=== PATIENT | male | born 1945 | race Caucasian/White ===

== ENCOUNTER → 2017-10-05 | Outpatient (CLI) | payer MEDICARE ==
[2017-10-05 09:46] LABS: Basophils % (A) 1 %; CHCM 32.3; Eosinophils # (A) 0.2 k/uL (0-0.7); Eosinophils % (A) 2 %; HCT 43.3 % (39.0-53.0); HGB 13.9 gm/dL (13.0-17.5); Luc # (Auto) 0.19; Luc % (Auto) 3; Lymphocytes # (A) 2.2 k/uL (1.0-4.8); Lymphocytes % (A) 34 %; MCHC 32.1 g/dL (31.0-37.0); MCV 96.4 fL (80.0-100.0); Mean Platelet Volume 7.2; Monocytes # (A) 0.5 k/uL (0-1.0); Monocytes % (A) 7 %; Neutrophils # (A) 3.4 k/uL (1.3-7.7); Neutrophils % (A) 53 %; RBC 4.49 m/uL (4.30-5.90); RDW 14.6 % (11.5-15.5); WBC 6.4 k/uL (3.8-10.6); WBC (Perox) 6.37
[2017-10-05 10:06] LABS: ALT 35 U/L (21-72); AST 25 U/L (17-59); Alkaline Phosphatase 78 U/L (38-126); Anion Gap 6 mmol/L; Blood Urea Nitrogen 21 mg/dL (9-20); Calcium 9.4 mg/dL (8.4-10.2); Carbon Dioxide 31 mmol/L (22-30); Chloride 102 mmol/L (98-107); Cholesterol 195 mg/dL (<200); Glucose 85 mg/dL (74-99); HDL Cholesterol 45 mg/dL (40-60); Non-African American GFR(MDRD) >60 (>60 ml/min/1.73 sqM); Potassium 4.5 mmol/L (3.5-5.1); Sodium 139 mmol/L (137-145); Total Bilirubin 0.6 mg/dL (0.2-1.3); Total Protein 7.2 g/dL (6.3-8.2)
[2017-10-05 10:35] LABS: Prostate Specific Antigen 2.04 ng/mL (0.00-4.00)
== END ==
LOC: LABWHC1 08:48
PROVIDERS: ATTEND Family Medicine
DX: Z00.00 Encounter for general adult medical examination without abnormal findings (principal)
CPT/HCPCS: 36415; 80053; 80061; 84153; 84439; 84443; 85025

== ENCOUNTER → 2018-03-07 | Outpatient (CLI) | payer MEDICARE ==
[2018-03-07 09:11] LABS: Basophils % (A) 1 %; Eosinophils % (A) 1 %; HCT 39.3 % (39.0-53.0); HGB 13.2 gm/dL (13.0-17.5); Lymphocytes # (A) 1.6 k/uL (1.0-4.8); Lymphocytes % (A) 30 %; MCHC 33.6 g/dL (31.0-37.0); MCV 92.1 fL (80.0-100.0); Mean Platelet Volume 7.4; Monocytes # (A) 0.4 k/uL (0-1.0); Monocytes % (A) 7 %; Neutrophils # (A) 3.2 k/uL (1.3-7.7); Neutrophils % (A) 60 %; Platelet Count 181 k/uL (150-450); RBC 4.27 m/uL (4.30-5.90); RDW 12.9 % (11.5-15.5); WBC 5.4 k/uL (3.8-10.6)
[2018-03-07 09:23] LABS: Albumin 3.6 g/dL (3.5-5.0); Calcium 8.9 mg/dL (8.4-10.2); Potassium 4.3 mmol/L (3.5-5.1); Total Bilirubin 0.7 mg/dL (0.2-1.3); Total Protein 6.8 g/dL (6.3-8.2)
[2018-03-07 09:53] LABS: Prostate Specific Antigen 1.51 ng/mL (0.00-4.00)
== END | disposition home or self-care (01) ==
LOC: LABWHC1 08:11
PROVIDERS: ATTEND Family Medicine
DX: Z00.00 Encounter for general adult medical examination without abnormal findings (principal)
CPT/HCPCS: 36415; 80053; 80061; 84153; 84443; 85025

== ENCOUNTER → 2018-04-01 | Outpatient (CLI) | payer MEDICARE | END | disposition home or self-care (01) | LOC: LABWHC1 09:42 | PROVIDERS: ATTEND Family Medicine | DX: R42 Dizziness and giddiness (principal) | CPT/HCPCS: 93005 ==

== ENCOUNTER → 2018-07-26 | Outpatient (CLI) | payer MEDICARE ==
--- NOTE | 2018-07-26 15:01 | CT ---
EXAMINATION TYPE: CT urogram wo/w con DATE OF EXAM: 07/26/2018 COMPARISON: None INDICATION: Hematuria DLP: 904 mGycm, Automated exposure control for dose reduction was used. CONTRAST: 100 mL of Isovue 300. Study performed TECHNIQUE: Axial images were obtained from above the diaphragm to the pubic rami in the axial plane a t 5 mm thick sections. Reconstructed images are reviewed on the computer in the coronal plane. FINDINGS: Limited CT sections are obtained the lung bases. The lung bases are clear. CT ABDOMEN: Upper abdomen is somewhat limited. Portions visualized appear normal. Liver: Normal Spleen: Normal Pancreas: Normal Adrenal glands: The adrenal glands are normal. Gallbladder: Surgically absent Kidneys: No masses are evident. No hydronephrosis is present. No cysts are present. Three-D recons tructed images performed separately on the ventricular computer by the technologist are presented. Re nal calyces and infundibulum and renal pelves are normal. Ureters follow a normal caliber course and contour to the urinary bladder. There may be some calcification within the gonadal vein most likely p hleboliths. Ureteral stones are not identified. No dilatation is evident. Bilateral ureteral jets are evident. Aorta: There is marked infrarenal abdominal aortic aneurysm terminating at the bifurcation. This efe ures 7.2 cm in AP dimension. Inferior vena cava: Normal. CT PELVIS: Loops of bowel within the abdomen and pelvis are normal. Studies without oral contrast limiting b owel evaluation. Appendix: Not identified Urinary bladder: Normal. Genitourinary structures: Prostate is prominent. Osseous structures: No suspicious lytic or sclerotic lesions. IMPRESSIONS: 1. Abdominal aortic aneurysm measuring 7.2 cm in diameter and approximately 10.7 cm in length. 2. No suspicious renal or renal collecting system abnormality. A [place] level critical message alert has been initiated for Hong Gaines MD via the [facility] Critical Results System on 07/26/2018 2:56 PM. This message alert has been sent to Jazmin Jackson via the preferences provided by the clinician for the receipt of Radiology Critical Findings. Mikkristy TheraVid ID [id number].
== END | disposition home or self-care (01) ==
LOC: RADCTMAIN 12:48
PROVIDERS: ATTEND Urology
DX: I71.4 Abdominal aortic aneurysm, without rupture (principal)
CPT/HCPCS: 82565; 84520; 74178; 36415; 74400; Q9967

== ENCOUNTER → 2018-08-15 | Outpatient (CLI) | payer MEDICARE ==
[2018-08-15 17:35] LABS: Blood Urea Nitrogen 20 mg/dL (9-20)
--- NOTE | 2018-08-15 23:53 | CT ---
EXAMINATION TYPE: CT angio abdomen pelvis DATE OF EXAM: 08/15/2018 COMPARISON: 07/26/2018 HISTORY: 73-year-old male AAA, Evaluate aortic aneurysm. TECHNIQUE: Contiguous axial scanning of the abdomen and pelvis following administration of 100 ml Iso gabrielle 370 IV contrast. Coronal/sagittal MIP constructions performed. 3-D reconstructions generated on a dedicated independent workstation. CT DLP: 1380 mGycm Automated exposure control for dose reduction was used. FINDINGS: Heart normal size without pericardial effusion. Aortic root appears ectatic measuring up to 3.9 cm. L jenny bases clear without pleural effusion. Small hiatal hernia. Mildly aneurysmal low descending thoracic aorta 3.0 cm. Ectatic upper abdominal aorta 2.8 cm. Patent celiac axis and SMA with mild atherosclerotic calcifications at the origins. Lofton Daina renal arteries with mild atherosclerotic calcifications at the origin of the left r enal artery. Redemonstrated bilobed fusiform infrarenal abdominal aortic aneurysm. The first fusiform aneurysm beg ins just below the takeoff of the renal arteries spanning 3.9 cm and measuring up to 3.4 cm in diamet er, unchanged. The second larger aneurysm spans 11.7 cm down to the bifurcation and begins just below the first aneu rysm. It measures up to 7.5 cm wide which is unchanged. There is prominent circumferential thrombus a nd plaque within the aneurysm sac narrowing the patent lumen down to 2.8 cm. The normal tense rounded structure of the aorta is maintained. No abnormal hyperdensity seen within t he aortic wall and no abnormal extension of contrast seen. No dilated small bowel, free fluid, or free air. No mesenteric or retroperitoneal lymphadenopathy. Mi ld to moderate stool burden. No pericolonic inflammatory change. Moderate-sized fat-containing indire ct right inguinal hernia. No abnormal fluid collection in the pelvis or pelvic lymphadenopathy. Multi ple pelvic phleboliths. Prostate gland measures 4.3 cm wide. Small bilateral hydroceles. Bones: Mild degenerative changes at the hips and SI joints. Scattered mild degenerative disc disease and facet arthropathy. No osseous destructive process. IMPRESSION: 1. LARGE BILOBED FUSIFORM ANEURYSM OF THE INFRARENAL ABDOMINAL AORTA. THE SMALLER UPPER ANEURYSM TANNER URES 3.4 CM AND THE SECOND LARGER ANEURYSM EXTENDS DOWN TO THE BIFURCATION MEASURING UP TO 7.5 CM. TH AMERICO REMAIN UNCHANGED FROM 07/26/2018. NO SPECIFIC CT FINDINGS OF IMPENDING RUPTURE AT THIS TIME. 2. PROMINENT CIRCUMFERENTIAL PLAQUE AND THROMBUS NARROWING THE PATENT LUMEN DOWN TO 2.8 CM. 3. MILD ANEURYSM LOWER DESCENDING THORACIC AORTA AT 3.0 CM AND ECTATIC UPPER ABDOMINAL AORTA 2.8 CM. 4. MODERATE-SIZED FAT-CONTAINING INDIRECT RIGHT INGUINAL HERNIA AND SMALL HIATAL HERNIA.
== END | disposition home or self-care (01) ==
LOC: RADCTMAIN 16:47
PROVIDERS: ATTEND Surgery
DX: I71.4 Abdominal aortic aneurysm, without rupture (principal); K40.90 Unilateral inguinal hernia, without obstruction or gangrene, not specified as recurrent; K44.9 Diaphragmatic hernia without obstruction or gangrene
CPT/HCPCS: 82565; 84520; 36415; 74174; Q9967

== ENCOUNTER → 2018-10-25 | Outpatient (CLI) | payer MEDICARE ==
--- NOTE | 2018-10-25 14:47 | CT ---
EXAMINATION TYPE: CT angio abdomen pelvis DATE OF EXAM: 10/25/2018 COMPARISON: 917 8 HISTORY: Follow up stent surgery. CT DLP: 729.4 mGycm CONTRAST: CTA abdominal aorta with 3-D reconstruction is performed without Oral Contrast and with IV Contrast, patient injected with 80 mL of Isovue 370. Contrast CTA of the abdominal aorta was performed from the lung bases through the base of the pelvis . 3-D reconstruction imaging obtained at a separate workstation. CONTRAST CT ABDOMEN AND PELVIS ABDOMINAL AORTA: Interval aortic stent graft placement. Branch vessels including the SMA, FE and sunday iac as well as renals are patent bilaterally. No evidence for endoleak at this time. Cachil Dehe aneurysm measures 7.1 x 6.8 cm versus 7.2 x 6.8 cm previously. No evidence for rupture or complicating factor at this time. LIVER/GB- No significant abnormality is seen. Cholecystectomy clips. PANCREAS- No significant abnormality is seen. SPLEEN- No significant abnormality is seen. ADRENALS- No significant abnormality is seen. KIDNEYS/BLADDER- No significant abnormality is seen. BOWEL- No Significant abnormality GENITAL ORGANS: No gross abnormality seen. LYMPH NODES- No greater than 1cm abdominal or pelvic lymph nodes are appreciated. OSSEOUS STRUCTURES- No significant abnormality is seen. [id number] right inguinal hernia. IMPRESSION- 1. Interval aortic stent graft placement without complicating factor.
== END | disposition home or self-care (01) ==
LOC: RADCTMAIN 12:50
PROVIDERS: ATTEND Surgery
DX: T82.898A Other specified complication of vascular prosthetic devices, implants and grafts, initial encounter (principal); Z95.828 Presence of other vascular implants and grafts
CPT/HCPCS: 82565; 84520; 36415; 74174; Q9967

== ENCOUNTER → 2018-11-07 | Outpatient (CLI) | payer MEDICARE ==
[2018-11-07 10:08] LABS: Basophils % (A) 1 %; Eosinophils # (A) 0.2 k/uL (0-0.7); Eosinophils % (A) 4 %; HCT 41.3 % (39.0-53.0); HGB 13.4 gm/dL (13.0-17.5); Lymphocytes # (A) 1.6 k/uL (1.0-4.8); Lymphocytes % (A) 28 %; MCH 31.1 pg (25.0-35.0); MCHC 32.5 g/dL (31.0-37.0); MCV 95.7 fL (80.0-100.0); Mean Platelet Volume 6.7; Monocytes # (A) 0.4 k/uL (0-1.0); Monocytes % (A) 7 %; Neutrophils # (A) 3.4 k/uL (1.3-7.7); Neutrophils % (A) 59 %; Platelet Count 195 k/uL (150-450); RBC 4.32 m/uL (4.30-5.90); RDW 13.2 % (11.5-15.5); WBC 5.8 k/uL (3.8-10.6)
[2018-11-07 17:14] LABS: Anion Gap 4.3 mmol/L (4.00-12.00); Carbon Dioxide 30.7 mmol/L (21.6-31.8); LDL Cholesterol,Calculated 59.4 mg/dL (0.0-131.0); Potassium 4.4 mmol/L (3.5-5.5); VLDL Calculation 17.6 mg/dL (5.00-40.00)
== END | disposition home or self-care (01) ==
LOC: LABWHC1 09:10
PROVIDERS: ATTEND Family Medicine
DX: Z00.00 Encounter for general adult medical examination without abnormal findings (principal); I10 Essential (primary) hypertension
CPT/HCPCS: 36415; 80048; 80061; 84153; 84450; 84460; 85025

== ENCOUNTER 2019-01-12 10:48 | Emergency (ER) | payer MEDICARE ==
[2019-01-12 10:55] VITALS: TEMP 98.1
--- NOTE | 2019-01-12 11:30 | ED ---
General Adult HPI - General Chief complaint: Recheck/Abnormal Lab/Rx Stated complaint: hypertension Time Seen by Provider: 01/12/19 11:03 Source: patient, RN notes reviewed, old records reviewed Mode of arrival: ambulatory Limitations: no limitations - History of Present Illness Initial comments: 73-year-old male patient past medical history of hypertension, AAA status post stent placement presents to ED with asymptomatic hypertension. Patient reports that he takes his blood pressure on a daily basis. Patient pushes blood pressures generally in the 130s systolic. Patient reports that today his blood pressure has been around 170/80 pt currently denies any other complaints. Patient denies headache, changes in vision, chest pain, shortness of breath, abdominal pain, nausea vomiting diarrhea. Systemic: Pt denies fatigue, myalgia, fever/chills, rash. Pt denies weakness, night sweats, weight loss. Neuro: Pt denies headache, visual disturbances, syncope or pre-syncope. HEENT: Pt denies ocular discharge or irritation, otalgia, rhinorrhea, pharyngitis or notable lymphadenopathy. Cardiopulmonary: Pt denies chest pain, SOB, heart palpitations, dyspnea on exertion. Abdominal/GI: Pt denies abdominal pain, n/v/d. : Pt denies dysuria, burning w/ urination, frequency/urgency. Denies new onset urinary or bowel incontinence. MSK: Pt denies myalgia, loss of strength or function in extremities. Neuro: Pt denies new onset weakness, paresthesias. - Related Data Home Medications Medication Instructions Recorded Confirmed Aspirin EC [Ecotrin Low Dose] 81 mg PO HS 01/12/19 01/12/19 Atorvastatin [Lipitor] 80 mg PO HS@2200 01/12/19 01/12/19 Clopidogrel [Plavix] 75 mg PO HS 01/12/19 01/12/19 Metoprolol Tartrate 25 mg PO DAILY@1700 01/12/19 01/12/19 Allergies Allergy/AdvReac Type Severity Reaction Status Date / Time No Known Allergies Allergy Verified 01/12/19 10:51 Review of Systems ROS Statement: Those systems with pertinent positive or pertinent negative responses have been documented in the HPI. ROS Other: All systems not noted in ROS Statement are negative. Past Medical History Past Medical History: Hypertension Additional Past Medical History / Comment(s): AAA History of Any Multi-Drug Resistant Organisms: None Reported Additional Past Surgical History / Comment(s): AAA stent placement Past Psychological History: No Psychological Hx Reported Smoking Status: Former smoker Past Alcohol Use History: None Reported Past Drug Use History: None Reported General Exam - General Exam Comments Initial Comments: Constitutional: NAD, AOX3, Pt has pleasant affect. HEENT: NC/AT, trachea midline, neck supple, no lymphadenopathy. Posterior pharynx non erythematous, without exudates. External ears appear normal, without discharge. Mucous membranes moist. Eyes PERRLA, EOM intact. There is no scleral icterus. No pallor noted. Cardiopulmonary: RRR, no murmurs, rubs or gallops, no JVD noted. Lungs CTAB in anterior and posterior campuzano. No peripheral edema. Abdominal exam: Abdomen soft and non-distended. Abdomen non-tender to palpation in all 4 quadrants. Bowel sounds active in LLQ. No hepatosplenomegaly. No ecchymosis Neuro: CN II-XII intact. No nuchal rigidity. MSK: No posterior calf tenderness bilaterally, homans sign negative bilaterally. Posterior tibialis and radial pulse +2 bilaterally. Sensation intact in upper and lower extremities. Full active ROM in upper and lower extremities, 5/5 stregnth. Limitations: no limitations Course Vital Signs 01/12/19 01/12/19 01/12/19 10:52 11:39 12:40 Temperature 98.1 F Pulse Rate 61 54 L 52 L Respiratory 18 16 14 Rate Blood Pressure 178/88 160/83 155/86 O2 Sat by Pulse 96 96 96 Oximetry 01/12/19 01/12/19 01/12/19 13:41 14:36 14:55 Temperature Pulse Rate 66 Respiratory 14 Rate Blood Pressure 161/68 158/88 153/74 O2 Sat by Pulse 95 Oximetry Medical Decision Making - Medical Decision Making 73-year-old male patient past medical history of hypertension, AAA status post stent placement presents to ED with asymptomatic hypertension. Patient reports that he takes his blood pressure on a daily basis. Patient pushes blood pressures generally in the 130s systolic. Patient reports that today his blood pressure has been around 170/80 pt currently denies any other complaints. Patient denies headache, changes in vision, chest pain, shortness of breath, abdominal pain, nausea vomiting diarrhea. Pt VS displayed initial blood pressure of 178/88, after administration of antihypertensive, blood pressure decreased too 153/74 which it is currently at. Physical exam did not display acute pathology. Lymph investigations revealed nonpassive CBC. CMP revealed slight increase of creatinine of 1.92. UA revealed +2 protein, [address] patient secondary to kidney function. Ultrasound of aorta revealed stable aneurysm and graft stent. No signs of leakage or dissection. Ultrasound of kidneys displayed no hydronephrosis or nephrolithiasis. Vascular flow to both kidneys. Enlarged prostate gland. Chest x-ray displayed a 5 mm density to the right lung apex, more pronounced than on exam in 2009. May represent scarring. Outpatient follow-up recommended. Patient is a 1 L fluid. Patient continues to be asymptomatic in ED. Blood pressure well controlled. Patient to follow with primary care provider in 1-2 days for continued evaluation kidney function and hematuria. Case discussed in depth with Dr. Souza. - Lab Data Result diagrams: 01/12/19 11:22 01/12/19 11:22 Lab Results 01/12/19 01/12/19 01/12/19 Range/Units 11:22 11:22 11:22 WBC 7.1 (3.8-10.6) k/uL RBC 4.40 (4.30-5.90) m/uL Hgb 13.6 (13.0-17.5) gm/dL Hct 40.8 (39.0-53.0) % MCV 92.7 (80.0-100.0) fL MCH 30.9 (25.0-35.0) pg MCHC 33.4 (31.0-37.0) g/dL RDW 13.4 (11.5-15.5) % Plt Count 177 (150-450) k/uL Neutrophils % 66 % Lymphocytes % 22 % Monocytes % 9 % Eosinophils % 1 % Basophils % 0 % Neutrophils # 4.7 (1.3-7.7) k/uL Lymphocytes # 1.5 (1.0-4.8) k/uL Monocytes # 0.6 (0-1.0) k/uL Eosinophils # 0.1 (0-0.7) k/uL Basophils # 0.0 (0-0.2) k/uL Sodium 138 (137-145) mmol/L Potassium 4.1 (3.5-5.1) mmol/L Chloride 101 (98-107) mmol/L Carbon Dioxide 27 (22-30) mmol/L Anion Gap 10 mmol/L BUN 32 H (9-20) mg/dL Creatinine 1.92 H (0.66-1.25) mg/dL Est GFR (CKD-EPI)AfAm 39 (>60 ml/min/1.73 sqM) Est GFR (CKD-EPI)NonAf 34 (>60 ml/min/1.73 sqM) Glucose 125 H (74-99) mg/dL Calcium 9.1 (8.4-10.2) mg/dL Total Bilirubin 0.8 (0.2-1.3) mg/dL AST 45 (17-59) U/L ALT 49 (21-72) U/L Alkaline Phosphatase 76 (38-126) U/L Total Protein 7.8 (6.3-8.2) g/dL Albumin 4.3 (3.5-5.0) g/dL Urine Color Yellow Urine Appearance Clear (Clear) Urine pH 6.0 (5.0-8.0) Ur Specific [place] 1.017 (1.001-1.035) Urine Protein 2+ H (Negative) Urine Glucose (UA) Negative (Negative) Urine Ketones Negative (Negative) Urine Blood Moderate H (Negative) Urine Nitrite Negative (Negative) Urine Bilirubin Negative (Negative) Urine Urobilinogen <2.0 (<2.0) mg/dL Ur Leukocyte Esterase Negative (Negative) Urine RBC 19 H (0-5) /hpf Urine WBC 2 (0-5) /hpf Ur Squamous Epith Cells <1 (0-4) /hpf Urine Mucus Rare H (None) /hpf Disposition Clinical Impression: Hypertension Disposition: HOME SELF-CARE Condition: Stable Instructions (If sedation given, give patient instructions): Hypertension in the Older Adult (ED) Additional Instructions: Patient to adhere to previously discussed treatment plan and will take medication(s) as directed. Patient to follow up with PCP in 1-2 days. Patient to return to ED if symptoms do not improve. Is patient prescribed a controlled substance at d/c from ED?: No Referrals: Sebas Garza Jr, DO [Primary Care Provider] - 1-2 days
[2019-01-12 11:35] LABS: Basophils % (A) 0 %; Eosinophils # (A) 0.1 k/uL (0-0.7); Eosinophils % (A) 1 %; HCT 40.8 % (39.0-53.0); HGB 13.6 gm/dL (13.0-17.5); Lymphocytes # (A) 1.5 k/uL (1.0-4.8); Lymphocytes % (A) 22 %; MCH 30.9 pg (25.0-35.0); MCHC 33.4 g/dL (31.0-37.0); MCV 92.7 fL (80.0-100.0); Mean Platelet Volume 6.8; Monocytes # (A) 0.6 k/uL (0-1.0); Monocytes % (A) 9 %; Neutrophils # (A) 4.7 k/uL (1.3-7.7); Neutrophils % (A) 66 %; Platelet Count 177 k/uL (150-450); RDW 13.4 % (11.5-15.5); WBC 7.1 k/uL (3.8-10.6)
[2019-01-12 11:46] LABS: Appearance,Urine Clear (Clear); Bilirubin,Urine Negative (Negative); Blood,Urine Moderate (Negative); Color,Urine Yellow; Glucose,Urine (UA) Negative (Negative); Ketones,Urine Negative (Negative); Leukocyte Esterase,Urine Negative (Negative); Mucus,Urine Rare /hpf; Nitrite,Urine Negative (Negative); Protein,Urine 2+ (Negative); RBC,Urine 19 /hpf (0-5); Specific Gravity,Urine 1.017 (1.001-1.035); Squamous Epithelial Cell,Urine <1 /hpf (0-4); Urobilinogen,Urine <2.0 mg/dL (<2.0)
[2019-01-12 11:49] LABS: Albumin 4.3 g/dL (3.5-5.0); Calcium 9.1 mg/dL (8.4-10.2); Potassium 4.1 mmol/L (3.5-5.1); Total Bilirubin 0.8 mg/dL (0.2-1.3); Total Protein 7.8 g/dL (6.3-8.2)
--- NOTE | 2019-01-12 12:01 | XR ---
EXAMINATION TYPE: XR chest 2V DATE OF EXAM: 01/12/2019 COMPARISON: 12/21/2009. HISTORY: Elevated blood pressure. History of cardiac stents. TECHNIQUE: Frontal and lateral views of the chest are obtained. FINDINGS: There is no focal air space opacity, pleural effusion, or pneumothorax seen. Focal nodular density of the right lung apex is seen, minimally increased in comparison to the prior 2009. The ca rdiac silhouette size is within normal limits. The osseous structures are intact. Endovascular sten t is seen of the descending thoracic aorta with surgical clips. Cholecystectomy change is noted. Mini mal degenerative changes of the spine and right acromio clavicular joint are seen. IMPRESSION: 1. No acute cardiopulmonary process. 2. Patchy approximately 5 mm density within the right lung apex is more pronounced on the exam of 201 0 and may represent scarring, however given interval growth nonemergent chest CT is recommended for f ull characterization.
[2019-01-12] MEDS ORDERED: LABETALOL SYRINGE 5 MG/ML IVP STA (12:17)
[2019-01-12] MEDS ORDERED: hydrALAZINE HCL 20 MG/ML 1 ML VIAL IVP STA ×2 (12:21→14:03)
[2019-01-12 12:41] VITALS: RESP 14
--- NOTE | 2019-01-12 14:10 | US ---
EXAMINATION TYPE: US duplex aorta DATE OF EXAM: 01/12/2019 COMPARISON: CT angio abdomen pelvis dated 10/25/2018 CLINICAL HISTORY: Pain. Hx of AAA with aortic stent in august, HTN today EXAM MEASUREMENTS: Abdominal Aorta: Proximal: Not visualized due to overlying bowel gas Mid: 1.8 x 2.4 cm, limited visualization due to overlying bowel gas and AAA Distal: Not well visualized due to AAA Bifurcation: right stenting- 0.6 x 1.1 cm left stenting- 1.1 x 0.9 cm AAA visualized between mid and distal portion of Aorta= 11.3 x 7.0 x 6.7 cm. Two stents seen within A AA with vascular flow possibly extending into the iliacs. Distal flow on image 47 again made be prese nt within the iliac vasculature, suboptimally evaluated. IMPRESSION: Mid to distal abdominal aortic aneurysm measures up to 6.7 cm in anterior posterior dimen norman and 7.0 cm in transverse dimension, similar in size to the prior CT abdomen dated 10/25/2018 whe re this measured 6.8 x 7.1 cm. Aortoiliac stent graft is seen centrally with vascular flow through th e stent graft.
--- NOTE | 2019-01-12 14:12 | US ---
EXAMINATION TYPE: US renals and bladder DATE OF EXAM: 01/12/2019 COMPARISON: None CLINICAL HISTORY: kidneys per order. HTN today, patient states having aortic stent placed in that allyn t to kidneys EXAM MEASUREMENTS: Right Kidney: 8.7 x 5.1 x 4.8 cm Left Kidney: 8.2 x 3.5 x 4.6 cm Right Kidney: No hydronephrosis or masses seen Left Kidney: No hydronephrosis or masses seen Bladder: mildly distended Right jet seen There is no evidence for hydronephrosis at this point in time. No nephrolithiasis is seen. No luis s are identified. The urinary bladder is anechoic. Bilateral ureteral jets are seen. Vascular flow seen to both kidneys. Enlarged prostate gland impressing upon the urinary bladder is seen. IMPRESSION: No hydronephrosis or nephrolithiasis. Vascular flow seen to both kidneys. Enlarged prostate gland imp resses upon the urinary bladder.
[2019-01-12] MEDS ORDERED: SODIUM CHLORIDE 0.9% 1,000 ML IV STA (14:34)
[2019-01-12 14:56] VITALS: PULSE 66
[2019-01-12 16:15] VITALS: BP 146/88
--- NOTE | 2019-01-12 20:48 | ED ---
Medical Decision Making - Lab Data Result diagrams: 01/12/19 11:22 01/12/19 11:22 Lab Results 01/12/19 01/12/19 01/12/19 Range/Units 11:22 11:22 11:22 WBC 7.1 (3.8-10.6) k/uL RBC 4.40 (4.30-5.90) m/uL Hgb 13.6 (13.0-17.5) gm/dL Hct 40.8 (39.0-53.0) % MCV 92.7 (80.0-100.0) fL MCH 30.9 (25.0-35.0) pg MCHC 33.4 (31.0-37.0) g/dL RDW 13.4 (11.5-15.5) % Plt Count 177 (150-450) k/uL Neutrophils % 66 % Lymphocytes % 22 % Monocytes % 9 % Eosinophils % 1 % Basophils % 0 % Neutrophils # 4.7 (1.3-7.7) k/uL Lymphocytes # 1.5 (1.0-4.8) k/uL Monocytes # 0.6 (0-1.0) k/uL Eosinophils # 0.1 (0-0.7) k/uL Basophils # 0.0 (0-0.2) k/uL Sodium 138 (137-145) mmol/L Potassium 4.1 (3.5-5.1) mmol/L Chloride 101 (98-107) mmol/L Carbon Dioxide 27 (22-30) mmol/L Anion Gap 10 mmol/L BUN 32 H (9-20) mg/dL Creatinine 1.92 H (0.66-1.25) mg/dL Est GFR (CKD-EPI)AfAm 39 (>60 ml/min/1.73 sqM) Est GFR (CKD-EPI)NonAf 34 (>60 ml/min/1.73 sqM) Glucose 125 H (74-99) mg/dL Calcium 9.1 (8.4-10.2) mg/dL Total Bilirubin 0.8 (0.2-1.3) mg/dL AST 45 (17-59) U/L ALT 49 (21-72) U/L Alkaline Phosphatase 76 (38-126) U/L Total Protein 7.8 (6.3-8.2) g/dL Albumin 4.3 (3.5-5.0) g/dL Urine Color Yellow Urine Appearance Clear (Clear) Urine pH 6.0 (5.0-8.0) Ur Specific [place] 1.017 (1.001-1.035) Urine Protein 2+ H (Negative) Urine Glucose (UA) Negative (Negative) Urine Ketones Negative (Negative) Urine Blood Moderate H (Negative) Urine Nitrite Negative (Negative) Urine Bilirubin Negative (Negative) Urine Urobilinogen <2.0 (<2.0) mg/dL Ur Leukocyte Esterase Negative (Negative) Urine RBC 19 H (0-5) /hpf Urine WBC 2 (0-5) /hpf Ur Squamous Epith Cells <1 (0-4) /hpf Urine Mucus Rare H (None) /hpf - EKG Data -: EKG Interpreted by Me (and dr flanagan ) EKG Comments: Ventricular rate 55, NE interval 188, QRS 128, QT/QTc 452/432. Sinus bradycardia, right bundle-branch block. No concern for acute ischemia. No significant change to prior EKG. Disposition Clinical Impression: Hypertension Disposition: HOME SELF-CARE Condition: Stable Instructions (If sedation given, give patient instructions): Hypertension in the Older Adult (ED) Additional Instructions: Patient to adhere to previously discussed treatment plan and will take medication(s) as directed. Patient to follow up with PCP in 1-2 days. Patient to return to ED if symptoms do not improve. Is patient prescribed a controlled substance at d/c from ED?: No Referrals: Sebas Garza Jr, [Primary Care Provider] - 1-2 days
== END 2019-01-12 16:14 | disposition home or self-care (01) ==
LOC: EC 10:48
DX: I10 Essential (primary) hypertension (principal); I71.4 Abdominal aortic aneurysm, without rupture; N40.0 Benign prostatic hyperplasia without lower urinary tract symptoms; R91.8 Other nonspecific abnormal finding of lung field; Z95.828 Presence of other vascular implants and grafts; Z87.891 Personal history of nicotine dependence; Z79.82 Long term (current) use of aspirin; Z79.02 Long term (current) use of antithrombotics/antiplatelets; Z79.899 Other long term (current) drug therapy; Z53.8 Procedure and treatment not carried out for other reasons
CPT/HCPCS: 36415; 93005; 80053; 85025; 81001; 71046; 76770; 93979; 99284; 96374; 96376; 96361; J0360

== ENCOUNTER 2019-01-13 01:25 | Emergency (ER) | payer MEDICARE ==
[2019-01-13] MEDS ORDERED: hydrALAZINE HCL 20 MG/ML 1 ML VIAL IM STA (02:46)
--- NOTE | 2019-01-13 03:09 | ED ---
Recheck HPI - General Chief Complaint: Recheck/Abnormal Lab/Rx Stated Complaint: HTN Time Seen by Provider: 01/13/19 02:28 Source: patient, RN notes reviewed, old records reviewed Mode of arrival: ambulatory Limitations: no limitations - History of Present Illness Initial Comments: Patient is a 73-year-old male presents emergency department today with complaints of elevated blood pressure readings. Patient reports that he was seen earlier today and had a full workup including a shunt abdomen renals EKGs. This was already performed and unremarkable. He states he has no symptoms at this time with blood pressure. Patient states that he checked his blood pressure at home when he was discharged to continue to be elevated 170s over 80s and 90s. Patient states that he does take metoprolol this time. He did have a dose of 5:00. He reports that he woke up and decided to recheck his blood pressure. It was elevated 170/90 again. He came to the emergency department for reevaluation. - Related Data Home Medications Medication Instructions Recorded Confirmed Aspirin EC [Ecotrin Low Dose] 81 mg PO HS 01/12/19 01/12/19 Atorvastatin [Lipitor] 80 mg PO HS@2200 01/12/19 01/12/19 Clopidogrel [Plavix] 75 mg PO HS 01/12/19 01/12/19 Metoprolol Tartrate 25 mg PO DAILY@1700 01/12/19 01/12/19 Allergies Allergy/AdvReac Type Severity Reaction Status Date / Time No Known Allergies Allergy Verified 01/13/19 01:46 Review of Systems ROS Statement: Those systems with pertinent positive or pertinent negative responses have been documented in the HPI. ROS Other: All systems not noted in ROS Statement are negative. Past Medical History Past Medical History: Hypertension Additional Past Medical History / Comment(s): AAA History of Any Multi-Drug Resistant Organisms: None Reported Additional Past Surgical History / Comment(s): AAA stent placement Past Psychological History: No Psychological Hx Reported Smoking Status: Former smoker Past Alcohol Use History: None Reported Past Drug Use History: None Reported General Exam - General Exam Comments Initial Comments: 73-year-old male. Alert and oriented. No distress. Limitations: no limitations General appearance: alert, in no apparent distress Head exam: Present: atraumatic, normocephalic, normal inspection Eye exam: Present: normal appearance, PERRL, EOMI. Absent: scleral icterus, conjunctival injection, periorbital swelling ENT exam: Present: normal exam, mucous membranes moist Neck exam: Present: normal inspection. Absent: tenderness, meningismus, lymphadenopathy Respiratory exam: Present: normal lung sounds bilaterally. Absent: respiratory distress, wheezes, rales, rhonchi, stridor Cardiovascular Exam: Present: regular rate, normal rhythm, normal heart sounds. Absent: systolic murmur, diastolic murmur, rubs, gallop, clicks GI/Abdominal exam: Present: soft, normal bowel sounds. Absent: distended, tenderness, guarding, rebound, rigid Extremities exam: Present: normal inspection, full ROM, normal capillary refill. Absent: tenderness, pedal edema, joint swelling, calf tenderness Back exam: Present: normal inspection Neurological exam: Present: alert, oriented X3, CN II-XII intact Psychiatric exam: Present: normal affect, normal mood Course Vital Signs 01/13/19 01/13/19 01/13/19 01:44 03:06 03:20 Temperature 98.6 F Pulse Rate 59 L 54 L 60 Respiratory 16 16 20 Rate Blood Pressure 157/75 169/81 152/74 O2 Sat by Pulse 97 97 97 Oximetry Medical Decision Making - Medical Decision Making 73-year-old male presents department today with complaints of elevated blood pressure. He is asymptomatic at this time. Blood pressure was 170/80 80 on examination. He denies any complaints. Patient was given 1 dose of 10mg IM hydralazine. He had an extensive evaluation earlier today for evaluation for his blood pressure. I discussed the Patient he needs to follow-up with his primary care provider may need to add another blood pressure medication on at this time. Blood pressure came down to 152/74. Patient has been advised also does not check his blood pressure except for once to twice a day and to call his PCP. Discussed that these any symptoms including chest pain shortness of breath abdominal pains or other discomforts he should return for reevaluation. Disposition Clinical Impression: Hypertension Disposition: HOME SELF-CARE Condition: Good Instructions (If sedation given, give patient instructions): Chronic Hypertension (ED) Additional Instructions: Call primary care physician in regards to adding additional blood pressure medication. Advised to decrease the amount of change or taking her blood pressure at home. If you have any symptoms including chest pain shortness of breath or significant abdominal pain or severe headache please return for reevaluation. Is patient prescribed a controlled substance at d/c from ED?: No Referrals: Sebas Garza Jr, [Primary Care Provider] - 1-2 days Time of Disposition: 03:22
[2019-01-13 03:37] VITALS: BP 149/75; PULSE 61; RESP 18; TEMP 98.4
== END 2019-01-13 03:37 | disposition home or self-care (01) ==
LOC: EC 01:25
DX: I10 Essential (primary) hypertension (principal); Z79.82 Long term (current) use of aspirin; Z79.02 Long term (current) use of antithrombotics/antiplatelets; Z79.899 Other long term (current) drug therapy; Z87.891 Personal history of nicotine dependence; Z95.5 Presence of coronary angioplasty implant and graft
CPT/HCPCS: 99283; 96372; J0360

== ENCOUNTER 2019-11-18 10:44 | Emergency (ER) | payer MEDICARE ==
[2019-11-18 10:54] VITALS: TEMP 97.8
[2019-11-18] MEDS ORDERED: hydrALAZINE HCL 20 MG/ML 1 ML VIAL IM STA (11:16)
--- NOTE | 2019-11-18 11:20 | ED ---
General Adult HPI - General Chief complaint: Recheck/Abnormal Lab/Rx Stated complaint: High Blood Pressure Time Seen by Provider: 11/18/19 10:46 Source: patient, RN notes reviewed Mode of arrival: ambulatory Limitations: no limitations - History of Present Illness Initial comments: Patient is a pleasant 74-year-old male presenting to the emergency department with concerns regarding his blood pressure. Patient did take blood pressure at home today and was running somewhat high. Systolic blood pressure readings were 156 and 170. Patient otherwise states he feels fine. No chest pain or dyspnea. No weakness or confusion. Patient does have history of hypertension and is on medication for this. - Related Data Home Medications Medication Instructions Recorded Confirmed Aspirin EC [Ecotrin Low Dose] 81 mg PO HS 01/12/19 01/12/19 Atorvastatin [Lipitor] 80 mg PO HS@2200 01/12/19 01/12/19 Clopidogrel [Plavix] 75 mg PO HS 01/12/19 01/12/19 Metoprolol Tartrate 25 mg PO DAILY@1700 01/12/19 01/12/19 Allergies Allergy/AdvReac Type Severity Reaction Status Date / Time No Known Allergies Allergy Verified 11/18/19 10:54 Review of Systems ROS Statement: Those systems with pertinent positive or pertinent negative responses have been documented in the HPI. ROS Other: All systems not noted in ROS Statement are negative. Constitutional: Denies: fever Eyes: Denies: eye pain ENT: Denies: ear pain Respiratory: Denies: cough, dyspnea Cardiovascular: Denies: chest pain, palpitations Endocrine: Denies: fatigue Gastrointestinal: Denies: abdominal pain Genitourinary: Denies: dysuria Musculoskeletal: Denies: back pain Skin: Denies: rash Neurological: Denies: weakness Past Medical History Past Medical History: Hypertension Additional Past Medical History / Comment(s): AAA History of Any Multi-Drug Resistant Organisms: None Reported Additional Past Surgical History / Comment(s): AAA stent placement Past Psychological History: No Psychological Hx Reported Smoking Status: Former smoker Past Alcohol Use History: None Reported Past Drug Use History: None Reported General Exam Limitations: no limitations General appearance: alert, in no apparent distress Head exam: Present: normocephalic Eye exam: Present: normal appearance, PERRL ENT exam: Present: normal oropharynx Neck exam: Present: normal inspection Respiratory exam: Present: normal lung sounds bilaterally. Absent: chest wall tenderness Cardiovascular Exam: Present: regular rate, normal rhythm Expanded Peripheral pulses: 2+: Radial (R), Radial (L), Posterior Tibialis (R), Posterior Tibialis (L) GI/Abdominal exam: Present: soft. Absent: tenderness Extremities exam: Present: normal inspection Neurological exam: Present: alert, CN II-XII intact. Absent: motor sensory deficit Expanded Neurological exam: Present: protecting the airway Speech: Present: fluid speech Cranial nerves: EOM's Intact: Normal Motor strength exam: RUE: 5, LUE: 5, RLE: 5, LLE: 5 Eye Response: (4) open spontaneously Motor Response: (6) obeys commands Verbal Response: (5) oriented Psychiatric exam: Present: normal affect, normal mood Skin exam: Present: normal color Course Vital Signs 11/18/19 11/18/19 11/18/19 10:51 11:11 11:20 Temperature 97.8 F Pulse Rate 51 L 49 L 46 L Respiratory 20 Rate Blood Pressure 171/82 173/80 O2 Sat by Pulse 100 Oximetry 11/18/19 11/18/19 11/18/19 11:30 11:40 11:45 Temperature Pulse Rate 46 L 47 L 48 L Respiratory Rate Blood Pressure 173/80 173/80 173/80 O2 Sat by Pulse Oximetry 11/18/19 11/18/19 11/18/19 11:47 11:50 11:55 Temperature Pulse Rate 49 L 49 L 50 L Respiratory 14 Rate Blood Pressure 143/75 143/75 141/66 O2 Sat by Pulse 98 97 97 Oximetry 11/18/19 11/18/19 11/18/19 12:00 12:05 12:15 Temperature Pulse Rate 49 L 51 L 52 L Respiratory Rate Blood Pressure 141/66 145/67 143/67 O2 Sat by Pulse 97 97 96 Oximetry EKG Findings - EKG Comments: EKG Findings:: Sinus bradycardia at 50. For screening AV block IA of 234. QRS 124. QT 462. QTC 421. Left axis. Right bundle branch block. No acute ST change. Medical Decision Making - Medical Decision Making Patient reevaluated and resting comfortably in bed, symptom-free. Patient updated on results and need for follow-up. Patient is comfortable with discharge home. Disposition Clinical Impression: Hypertension Disposition: HOME SELF-CARE Condition: Stable Instructions (If sedation given, give patient instructions): Hypertension (ED) Additional Instructions: Please follow-up with primary care physician in the beginning of the week as planned. Return for increased blood pressure, chest pain or weakness, worsening symptoms or other concerns. Is patient prescribed a controlled substance at d/c from ED?: No Referrals: Sebas Garza Jr, DO [Primary Care Provider] - 1-2 days Time of Disposition: 12:27
[2019-11-18 11:48] VITALS: RESP 14
[2019-11-18 12:18] VITALS: BP 143/67
[2019-11-18 12:28] VITALS: PULSE 51
== END 2019-11-18 12:33 | disposition home or self-care (01) ==
LOC: EC 10:44
DX: I10 Essential (primary) hypertension (principal); Z87.891 Personal history of nicotine dependence; Z79.02 Long term (current) use of antithrombotics/antiplatelets; Z79.82 Long term (current) use of aspirin; Z79.899 Other long term (current) drug therapy; Z86.79 Personal history of other diseases of the circulatory system; Z95.5 Presence of coronary angioplasty implant and graft
CPT/HCPCS: 93005; 99283; 96372; J0360

== ENCOUNTER 2020-07-08 17:05 | Emergency (ER) | payer MEDICARE ==
--- NOTE | 2020-07-08 18:17 | ED ---
Back Pain HPI - General Chief Complaint: Back Pain/Injury Stated Complaint: back pain Time Seen by Provider: 07/08/20 17:17 Source: patient Limitations: no limitations - History of Present Illness Initial Comments: Patient is 74-year-old male with history of chronic back pain presenting to the emergency room with a chief complaint of back pain. Patient reports the pain started approximately 2 days ago with gradual increase in severity. Patient states there was no trauma to his back. He also reports no significant improvement in his symptoms in any position. Patient reports over the last day he has developed some obstructive urinary symptoms but no bowel incontinence. Denies any night sweats fevers or chills. Patient reports taking aspirin with some improvement symptoms but it reoccurs. States she has history of inguinal hernia and is scheduled for surgical repair by Dr. Carlos boo. Denies any abdominal pain, chest pain, shortness of breath. Denies extremity weakness or paresthesias. - Related Data Home Medications Medication Instructions Recorded Confirmed Aspirin EC [Ecotrin Low Dose] 81 mg PO HS 01/12/19 01/12/19 Atorvastatin [Lipitor] 80 mg PO HS@2200 01/12/19 01/12/19 Clopidogrel [Plavix] 75 mg PO HS 01/12/19 01/12/19 Metoprolol Tartrate 25 mg PO DAILY@1700 01/12/19 01/12/19 Previous Rx's Medication Instructions Recorded Cephalexin [Keflex] 500 mg PO Q6HR #28 cap 07/08/20 Allergies Allergy/AdvReac Type Severity Reaction Status Date / Time No Known Allergies Allergy Verified 07/08/20 17:09 Review of Systems ROS Statement: Those systems with pertinent positive or pertinent negative responses have been documented in the HPI. ROS Other: All systems not noted in ROS Statement are negative. Past Medical History Past Medical History: Hypertension Additional Past Medical History / Comment(s): AAA History of Any Multi-Drug Resistant Organisms: None Reported Additional Past Surgical History / Comment(s): AAA stent placement Past Psychological History: No Psychological Hx Reported Smoking Status: Never smoker Past Alcohol Use History: None Reported Past Drug Use History: None Reported General Exam Limitations: no limitations General appearance: alert, in no apparent distress Head exam: Present: atraumatic, normocephalic, normal inspection Eye exam: Present: normal appearance, PERRL, EOMI Pupils: Present: normal accommodation ENT exam: Present: normal exam, normal oropharynx, mucous membranes moist, TM's normal bilaterally, normal external ear exam Neck exam: Present: normal inspection, full ROM. Absent: tenderness Respiratory exam: Present: normal lung sounds bilaterally. Absent: respiratory distress, wheezes, rales Cardiovascular Exam: Present: regular rate, normal rhythm, normal heart sounds GI/Abdominal exam: Present: soft. Absent: distended, tenderness, guarding, rebound Extremities exam: Present: normal inspection, full ROM, normal capillary refill, other (+2 dorsalis pedis and posterior as well as bilateral.). Absent: tenderness, pedal edema, joint swelling, calf tenderness Back exam: Present: normal inspection, full ROM, tenderness, paraspinal tenderness (Right-sided) Neurological exam: Present: alert, oriented X3, normal gait Psychiatric exam: Present: normal affect, normal mood. Absent: depressed, agitated Skin exam: Present: warm, dry, intact, normal color Course Vital Signs 07/08/20 07/08/20 17:07 19:29 Temperature 98.5 F 98.9 F Pulse Rate 62 65 Respiratory 20 18 Rate Blood Pressure 167/59 132/69 O2 Sat by Pulse 98 95 Oximetry Medical Decision Making - Medical Decision Making Patient is 56-year-old male presenting to the emergency department with chief complaint of back pain. On exam patient does have localized right paraspinal tenderness in the lumbosacral region. Negative leg raise test. CT of the lumbar spine reveals no acute fracture or dislocations, however there is moderat e disc narrowing and disc calcification is also an L3. Small central disc protrusion and L5-S1 and mild facet arthropathy. UA reveals microscopic hematuria along with elevated white blood cells and leukocyte esterase. Patient will be treated for urinary tract infection. Patient is ambulatory without issues. Patient given a Lidoderm patch and Toradol. On reevaluation patient reports improvement in symptoms. Patient states he is going to follow up with a spine surgeon within the next week. He is denying any abdominal pain, chest pain, shortness of breath, lower extremity weakness or paresthesias. Strict return parameters were thoroughly discussed the patient is understanding and agreeable. Case discussed physician. - Lab Data Lab Results 07/08/20 Range/Units 18:08 Urine Color Yellow Urine Appearance Cloudy (Clear) Urine pH 6.5 (5.0-8.0) Ur Specific [place] 1.017 (1.001-1.035) Urine Protein 3+ H (Negative) Urine Glucose (UA) Negative (Negative) Urine Ketones Negative (Negative) Urine Blood Moderate H (Negative) Urine Nitrite Negative (Negative) Urine Bilirubin Negative (Negative) Urine Urobilinogen <2.0 (<2.0) mg/dL Ur Leukocyte Esterase Trace H (Negative) Urine RBC 9 H (0-5) /hpf Urine WBC 36 H (0-5) /hpf Ur Squamous Epith Cells 1 (0-4) /hpf Urine Bacteria Rare H (None) /hpf Urine Mucus Rare H (None) /hpf Disposition Clinical Impression: Mechanical back pain, Degenerative disc disease, lumbar, Urinary tract infection Disposition: HOME SELF-CARE Condition: Stable Instructions (If sedation given, give patient instructions): Acute Low Back Pain (ED) Additional Instructions: Take prescribed medication as directed. Alternate between Tylenol and Motrin for pain control. Return to emergency department if symptoms worsen. Prescriptions: Cephalexin [Keflex] 500 mg PO Q6HR #28 cap Is patient prescribed a controlled substance at d/c from ED?: No Referrals: Sebas Garza Jr, DO [Primary Care Provider] - 1-2 days Time of Disposition: 19:22
[2020-07-08] MEDS ORDERED: LIDOCAINE 5% PATCH TOPICAL STA (18:38)
[2020-07-08] MEDS ORDERED: KETOROLAC 30 MG/ML 1 ML VIAL IM STA (18:38)
[2020-07-08 18:47] LABS: Appearance,Urine Cloudy (Clear); Bacteria,Urine Rare /hpf; Bilirubin,Urine Negative (Negative); Blood,Urine Moderate (Negative); Color,Urine Yellow; Glucose,Urine (UA) Negative (Negative); Ketones,Urine Negative (Negative); Leukocyte Esterase,Urine Trace (Negative); Mucus,Urine Rare /hpf; Nitrite,Urine Negative (Negative); PH, Urine 6.5 (5.0-8.0); Protein,Urine 3+ (Negative); RBC,Urine 9 /hpf (0-5); Specific Gravity,Urine 1.017 (1.001-1.035); Squamous Epithelial Cell,Urine 1 /hpf (0-4); Urobilinogen,Urine <2.0 mg/dL (<2.0); WBC,Urine 36 /hpf (0-5)
--- NOTE | 2020-07-08 18:55 | CT ---
EXAMINATION TYPE: CT lumbar spine wo con DATE OF EXAM: 07/08/2020 6:34 PM COMPARISON: CT abdomen and pelvis October 25, 2018 HISTORY: low back pain, no injury CT DLP: 627.6 mGycm Automated exposure control for dose reduction was used. Unenhanced CT of the lumbar spine was performed. Bone and soft tissue window settings are submitted as well as coronal and sagittal reconstructions. There are 5 lumbar type vertebra redemonstrated. There is persistent levoconvex scoliosis centered at L2 level. No acute fracture or dislocation. Moderate disc space narrowing and disc calcification L2- L3 level redemonstrated. Spinal canal grossly preserved. Axial images show mild/moderate facet degenerative changes bilaterally at L4-L5 level with mild/moder ate broad-based disc bulge mildly effacing the anterior thecal sac and moderate bilateral anterior in ferior neural foraminal narrowing. Small central disc protrusion L5-S1 level and mild facet arthropathy. There is significant [place] AAA partially imaged with metallic aortobiiliac stent graft redemonstrate d. IMPRESSION: As above. No acute fracture or dislocation is seen.
[2020-07-08 19:31] VITALS: BP 132/69; PULSE 65; RESP 18; TEMP 98.9
== END 2020-07-08 19:31 | disposition home or self-care (01) ==
LOC: EC 17:05
DX: N39.0 Urinary tract infection, site not specified (principal); M51.27 Other intervertebral disc displacement, lumbosacral region; I10 Essential (primary) hypertension; Z79.82 Long term (current) use of aspirin; Z79.02 Long term (current) use of antithrombotics/antiplatelets; Z79.899 Other long term (current) drug therapy
CPT/HCPCS: 81001; 72131; 99284; 96372; J1885

== ENCOUNTER 2020-07-10 13:26 | Inpatient (IN) | payer MEDICARE ==
[2020-07-10] MEDS ORDERED: SODIUM CHLORIDE 0.9% 1,000 ML IV STA ×2 (14:01)
[2020-07-10 14:33] LABS: Basophils % (A) 0 %; Eosinophils # (A) 0.1 k/uL (0-0.7); Eosinophils % (A) 0 %; HCT 37.4 % (39.0-53.0); HGB 12.1 gm/dL (13.0-17.5); Lymphocytes # (A) 1.9 k/uL (1.0-4.8); Lymphocytes % (A) 14 %; MCH 30.9 pg (25.0-35.0); MCHC 32.5 g/dL (31.0-37.0); Mean Platelet Volume 7.9; Monocytes # (A) 0.7 k/uL (0-1.0); Monocytes % (A) 5 %; Neutrophils # (A) 10.1 k/uL (1.3-7.7); Neutrophils % (A) 78 %; Platelet Count 149 k/uL (150-450); RBC 3.93 m/uL (4.30-5.90); RDW 13.7 % (11.5-15.5)
[2020-07-10 14:46] LABS: Albumin 3.5 g/dL (3.5-5.0); Magnesium 2.2 mg/dL (1.6-2.3); Potassium 5.5 mmol/L (3.5-5.1); Total Bilirubin 0.5 mg/dL (0.2-1.3); Total Protein 6.2 g/dL (6.3-8.2)
[2020-07-10 14:47] LABS: Partial Thromboplastin Time 25.3 sec (22.0-30.0); Prothrombin Time 10.5 sec (9.0-12.0)
--- NOTE | 2020-07-10 15:13 | US ---
EXAMINATION TYPE: US renals and bladder DATE OF EXAM: 07/10/2020 COMPARISON: CT, & US dated 01/12/2019 CLINICAL HISTORY: acute renal failure. EXAM MEASUREMENTS: Right Kidney: 8.5 x 4.3 x 4.9 cm Left Kidney: 7.6 x 4.6 x 4.1 cm Right Kidney: Sagittal images of the upper pole the right kidney with some prominence of cortex, no e vident mass on axial images Left Kidney: atrophied Bladder: superior mass with vascularity measures 5.6 x 2.4 x 5.9 Bilateral Jets seen: No There is no evidence for hydronephrosis at this point in time. No nephrolithiasis is seen. No luis s are identified. Cortical medullary differentiation is maintained, there is echogenic focus within t he urinary bladder IMPRESSION: Bladder mass is an interval finding
[2020-07-10] MEDS ORDERED: hydrALAZINE HCL 20 MG/ML 1 ML VIAL IVP STA (15:14)
[2020-07-10] MEDS ORDERED: ONDANSETRON 4 MG/2 ML VIAL IVP STA (15:37)
--- NOTE | 2020-07-10 15:49 | ED ---
General Adult HPI - General Chief complaint: Recheck/Abnormal Lab/Rx Stated complaint: ABN CT results Time Seen by Provider: 07/10/20 13:49 Source: patient, RN notes reviewed, old records reviewed Mode of arrival: wheelchair Limitations: no limitations - History of Present Illness Initial comments: Patient is a 74-year-old male presents emergency department today for evaluation for abnormal lab values were getting a computed tomography scan. Patient has a history of AAA with repair and was at the emergency department 2 days ago for lower back pain. He was told he had a slight urinary tract infection and was placed on Keflex at that time. He states that he has not been able to urinate for the past 2 days. He denies any significant back pain at this time and states it's now gone. Patient reports that he's had no recent fevers or chills. He states he's never had an issue with his kidneys or UTIs in the past. He denies any nausea or vomiting. - Related Data Home Medications Medication Instructions Recorded Confirmed Aspirin EC [Ecotrin Low Dose] 81 mg PO DAILY@1200 01/12/19 07/10/20 Atorvastatin [Lipitor] 80 mg PO DAILY@1200 01/12/19 07/10/20 Metoprolol Tartrate [Lopressor] 50 mg PO BID 07/10/20 07/10/20 Valsartan 80 mg PO DAILY 07/10/20 07/10/20 Previous Rx's Medication Instructions Recorded Cephalexin [Keflex] 500 mg PO Q6HR #28 cap 07/08/20 Allergies Allergy/AdvReac Type Severity Reaction Status Date / Time No Known Allergies Allergy Verified 07/10/20 17:13 Review of Systems ROS Statement: Those systems with pertinent positive or pertinent negative responses have been documented in the HPI. ROS Other: All systems not noted in ROS Statement are negative. Past Medical History Past Medical History: Hypertension Additional Past Medical History / Comment(s): AAA History of Any Multi-Drug Resistant Organisms: None Reported Additional Past Surgical History / Comment(s): AAA stent placement Past Psychological History: No Psychological Hx Reported Smoking Status: Former smoker Past Alcohol Use History: None Reported Past Drug Use History: None Reported General Exam - General Exam Comments Initial Comments: Learning oriented 74-year-old male. Pleasant. No distress. Limitations: no limitations General appearance: alert, in no apparent distress Head exam: Present: atraumatic, normocephalic, normal inspection Eye exam: Present: normal appearance, PERRL, EOMI. Absent: scleral icterus, conjunctival injection, periorbital swelling ENT exam: Present: normal exam, normal oropharynx Neck exam: Present: normal inspection. Absent: tenderness, meningismus, lymphadenopathy Respiratory exam: Present: normal lung sounds bilaterally. Absent: respiratory distress, wheezes, rales, rhonchi, stridor Cardiovascular Exam: Present: regular rate, normal rhythm, normal heart sounds. Absent: systolic murmur, diastolic murmur, rubs, gallop, clicks GI/Abdominal exam: Present: soft, normal bowel sounds, hernia (left groin), other. Absent: distended, guarding, rebound, rigid Extremities exam: Present: normal inspection, full ROM, normal capillary refill. Absent: tenderness, pedal edema, joint swelling, calf tenderness Back exam: Present: normal inspection Neurological exam: Present: alert, oriented X3, CN II-XII intact, other (Normal pulses in all extremities.) Psychiatric exam: Present: normal affect, normal mood Skin exam: Present: warm, dry, intact, normal color. Absent: rash Course Vital Signs 07/10/20 07/10/20 07/10/20 13:29 13:33 14:33 Temperature 97.7 F Pulse Rate 55 L 62 Respiratory 16 18 18 Rate Blood Pressure 187/82 173/85 O2 Sat by Pulse 98 96 Oximetry 07/10/20 07/10/20 15:00 16:00 Temperature Pulse Rate 73 Respiratory 18 18 Rate Blood Pressure 136/72 O2 Sat by Pulse 96 95 Oximetry Medical Decision Making - Medical Decision Making Patient is a 74-year-old male presents emergency department today for abnormal lab results while getting a CAT scan. He was found have acute renal failure. He's had no known history of renal failure. He states that he has not been able to urinate for the past 2 days. He was seen in the emergency department 2 days ago for back pain. At this time Patient shows evidence of acute renal failure with BUN of 108 with creatinine 7.5. Patient denies any pain today. Bladder scan showed no urine within the bladder. He also has a large right inguinal hernia which is scheduled have surgery for by Dr. Godwin within the next couple weeks. He is a known history of aortic aneurysm with grafting. Patient's computed tomography scan today cannot be completed with contrast as there poor renal function. CT demonstrated possible left anal artery thrombosis and cannot completely exclude endoleak. Patient will be admitted this time with consult to vascular surgery nephrology. I discussed case with Dr. Souza who discussed case with Dr. Beard. While Patient was in the emergency department he did have a bowel movement that was noted to be somewhat bloody. We'll repeat CBCs every 4 hours. He denies any significant abdominal pain or back pain at this time. - Lab Data Result diagrams: 07/10/20 14:13 07/10/20 14:13 Lab Results 07/10/20 07/10/20 07/10/20 Range/Units 12:05 14:13 14:13 WBC 13.0 H (3.8-10.6) k/uL RBC 3.93 L (4.30-5.90) m/uL Hgb 12.1 L (13.0-17.5) gm/dL Hct 37.4 L (39.0-53.0) % MCV 95.0 (80.0-100.0) fL MCH 30.9 (25.0-35.0) pg MCHC 32.5 (31.0-37.0) g/dL RDW 13.7 (11.5-15.5) % Plt Count 149 L (150-450) k/uL Neutrophils % 78 % Lymphocytes % 14 % Monocytes % 5 % Eosinophils % 0 % Basophils % 0 % Neutrophils # 10.1 H (1.3-7.7) k/uL Lymphocytes # 1.9 (1.0-4.8) k/uL Monocytes # 0.7 (0-1.0) k/uL Eosinophils # 0.1 (0-0.7) k/uL Basophils # 0.0 (0-0.2) k/uL PT 10.5 (9.0-12.0) sec INR 1.0 (<1.2) APTT 25.3 (22.0-30.0) sec Sodium (137-145) mmol/L Potassium (3.5-5.1) mmol/L Chloride (98-107) mmol/L Carbon Dioxide (22-30) mmol/L Anion Gap mmol/L BUN 74 H (9-20) mg/dL Creatinine 10.99 H* (0.66-1.25) mg/dL Est GFR (CKD-EPI)AfAm 5 (>60 ml/min/1.73 sqM) Est GFR (CKD-EPI)NonAf 4 (>60 ml/min/1.73 sqM) Glucose (74-99) mg/dL Plasma Lactic Acid Victor Hugo (0.7-2.0) mmol/L Calcium (8.4-10.2) mg/dL Magnesium (1.6-2.3) mg/dL Total Bilirubin (0.2-1.3) mg/dL AST (17-59) U/L ALT (4-49) U/L Alkaline Phosphatase (38-126) U/L Total Protein (6.3-8.2) g/dL Albumin (3.5-5.0) g/dL Amylase (30-110) U/L Lipase (23-300) U/L 07/10/20 07/10/20 Range/Units 14:13 14:13 WBC (3.8-10.6) k/uL RBC (4.30-5.90) m/uL Hgb (13.0-17.5) gm/dL Hct (39.0-53.0) % MCV (80.0-100.0) fL MCH (25.0-35.0) pg MCHC (31.0-37.0) g/dL RDW (11.5-15.5) % Plt Count (150-450) k/uL Neutrophils % % Lymphocytes % % Monocytes % % Eosinophils % % Basophils % % Neutrophils # (1.3-7.7) k/uL Lymphocytes # (1.0-4.8) k/uL Monocytes # (0-1.0) k/uL Eosinophils # (0-0.7) k/uL Basophils # (0-0.2) k/uL PT (9.0-12.0) sec INR (<1.2) APTT (22.0-30.0) sec Sodium 130 L (137-145) mmol/L Potassium 5.5 H (3.5-5.1) mmol/L Chloride 98 (98-107) mmol/L Carbon Dioxide 19 L (22-30) mmol/L Anion Gap 13 mmol/L BUN 75 H (9-20) mg/dL Creatinine 10.48 H* (0.66-1.25) mg/dL Est GFR (CKD-EPI)AfAm 5 (>60 ml/min/1.73 sqM) Est GFR (CKD-EPI)NonAf 4 (>60 ml/min/1.73 sqM) Glucose 96 (74-99) mg/dL Plasma Lactic Acid Victor Hugo 0.9 (0.7-2.0) mmol/L Calcium 9.0 (8.4-10.2) mg/dL Magnesium 2.2 (1.6-2.3) mg/dL Total Bilirubin 0.5 (0.2-1.3) mg/dL AST 38 (17-59) U/L ALT 29 (4-49) U/L Alkaline Phosphatase 86 (38-126) U/L Total Protein 6.2 L (6.3-8.2) g/dL Albumin 3.5 (3.5-5.0) g/dL Amylase 82 (30-110) U/L Lipase 163 (23-300) U/L 07/10/20 15:55 EKG performed at 1431 shows sinus bradycardia, incomplete right bundle-branch block. Ventricular rate of 57 bpm.. Vitals 208 ms. QRS duration is 118 ms. QT QTc is 452/439 ms. - Radiology Data Radiology results: report reviewed Ultrasound renals and bladder show a bladder mass measuring 5.6 x 2.4 x 5.9 cm. No evidence of hydronephrosis at this time. C cortical medullary differentiation is maintained. There is echogenic focus in the urinary bladder. CT shows Abdominal aortic aneurysm was not well evaluated without contrast but is not increased in size. There is dilation of the duodenum with inspiratory change present. Atrophy of the left kidney. Positioning of the left renal stent at an oblique angle cannot exclude thrombosis of the left renal artery. Stent graft in place with some Increased attenuation cannot exclude endoleak. There is minimal ascites present. Retained contrast. Large right inguinal hernia contains fat and some fluid as described. Disposition Clinical Impression: Renal failure, Inguinal hernia, Renal artery occlusion, Endoleak of aortic graft Disposition: ADMITTED IP TO THIS HOSP Condition: Stable Is patient prescribed a controlled substance at d/c from ED?: No Referrals: Sebas Garza Jr, [Primary Care Provider] - 1-2 days Time of Disposition: 17:37
--- NOTE | 2020-07-10 16:46 | CT ---
EXAMINATION TYPE: CT abdomen pelvis wo con DATE OF EXAM: 07/10/2020 COMPARISON: CT 10/25/2018 HISTORY: Renal failure, AAA. CT DLP: 597.6 mGycm Automated exposure control for dose reduction was used. TECHNIQUE: Helical acquisition of images from the lung bases through the pelvis. FINDINGS: Lack of intravenous contrast could compromise sensitivity. There is a right inguinal hernia present which contains some fluid and fat, there is some mass effect extending towards the right hemiscrotum, the abnormality measures 6.8 x 5 x 10 cm in size LUNG BASES: No significant abnormality is appreciated. AORTA: Abdominal aortic aneurysm and infrarenal location measures 7.5 cm. On previous exam it measur ed approximately 7.9 cm. There is some suggestion of increased density within the aneurysm sac. Aorti c stent graft is present. Renal artery stents suspected on the right, suspect a stent for the left re nal artery adjacent to the stent graft within the aorta on an oblique angle extending to the left mitchell al artery. There are coronary artery calcifications. LIVER/GB: No significant abnormality is appreciated. PANCREAS: No significant abnormality is seen. SPLEEN: No significant abnormality is seen. ADRENALS: No significant abnormality is seen. KIDNEYS: Left kidney has diminished in size as compared to previous exam measuring 6.7 cm as compared to previous when it measured 9.3 cm. Right kidney is 8.3 cm and measured approximately 8.7 cm on ruthann or.. REPRODUCTIVE ORGANS: Calcification is associated with the prostate which appears prominently. URINARY BLADDER: No significant abnormality is seen. BOWEL: There is some thickening of the duodenal wall, some questionable inflammatory changes adjacen t to the second portion of the duodenum. Duodenum appears somewhat dilated and is fluid-filled more s o than on previous exam. High dense material is present within the colon and portions of the small eun wel, there is colonic wall thickening which may be due to muscular hypertrophy, lack of distention, d ifficult to exclude a mucosal lesion. Correlate for contrast administration. FREE AIR: No Free Air is visible. ASCITES: There is a small amount of fluid about the liver, liver shows no mass. Patient is post chol ecystectomy as on prior.. PELVIC ADENOPATHY: None visualized. RETROPERITONEAL ADENOPATHY: No Retroperitoneal Adenopathy visible. OSSEOUS STRUCTURES: No significant abnormality is seen. IMPRESSION: ABDOMINAL AORTIC ANEURYSM IS NOT WELL EVALUATED WITHOUT CONTRAST BUT HAS NOT INCREASED IN SIZE. THERE IS DILATION OF THE DUODENUM WITH QUESTIONABLE INFLAMMATORY CHANGE PRESENT DESCRIBED. ATROPHY OF T HE LEFT KIDNEY, POSITIONING OF THE LEFT RENAL STENT AT AN OBLIQUE ANGLE, CANNOT EXCLUDE THROMBOSIS OF THE LEFT RENAL ARTERY. STENT GRAFT IN PLACE WITH SOME RONNA-GRAFT INCREASED ATTENUATION, CANNOT EXCLU DE ENDOLEAK. THERE IS MINIMAL ASCITES PRESENT. RETAINED CONTRAST. LARGE RIGHT INGUINAL HERNIA CONTAIN S FAT AND LIKELY SOME FLUID DESCRIBED.
[2020-07-10] MEDS ORDERED: ACETAMINOPHEN TAB 325 MG TAB PO PRN (17:38)
[2020-07-10] MEDS ORDERED: NALOXONE 0.4 MG/ML 1 ML VIAL IV PRN (17:38)
[2020-07-10 18:27] LABS: Basophils % (A) 0 %; Eosinophils # (A) 0.1 k/uL (0-0.7); Eosinophils % (A) 0 %; HCT 38.5 % (39.0-53.0); HGB 12.4 gm/dL (13.0-17.5); Lymphocytes % (A) 15 %; MCH 30.9 pg (25.0-35.0); MCHC 32.1 g/dL (31.0-37.0); MCV 96.2 fL (80.0-100.0); Mean Platelet Volume 7.7; Monocytes # (A) 0.7 k/uL (0-1.0); Monocytes % (A) 5 %; Neutrophils % (A) 77 %; Platelet Count 169 k/uL (150-450); RDW 13.7 % (11.5-15.5)
[2020-07-10] MEDS: SODIUM CHLORIDE 0.9% 1,000 ML IV SCH ×2 (19:44→22:41)
[2020-07-10] MEDS: METOPROLOL TARTRATE 50 MG TAB PO SCH (21:45)
[2020-07-10] MEDS: Acetaminophen-Codeine 300-30mg TAB PO PRN (21:52)
[2020-07-10 22:20] LABS: Calcium 8.5 mg/dL (8.4-10.2); Potassium 5.5 mmol/L (3.5-5.1)
[2020-07-10] MEDS ORDERED: hydrALAZINE HCL 25 MG TAB PO STA (22:31)
[2020-07-10] MEDS ORDERED: SODIUM CHLORIDE 0.9% 500 ML 500 ML IV ONE (22:32)
[2020-07-10] MEDS: MORPHINE SULFATE 4 MG/ML SYRINGE IV PRN (22:45)
[2020-07-11] MEDS: MORPHINE SULFATE 4 MG/ML SYRINGE IV PRN (04:47)
[2020-07-11 06:57] LABS: Basophils % (A) 0 %; Eosinophils % (A) 0 %; HCT 36.4 % (39.0-53.0); HGB 11.8 gm/dL (13.0-17.5); Lymphocytes # (A) 1.3 k/uL (1.0-4.8); Lymphocytes % (A) 12 %; MCH 31.1 pg (25.0-35.0); MCHC 32.5 g/dL (31.0-37.0); MCV 95.8 fL (80.0-100.0); Mean Platelet Volume 7.7; Monocytes # (A) 0.7 k/uL (0-1.0); Monocytes % (A) 7 %; Neutrophils # (A) 8.4 k/uL (1.3-7.7); Neutrophils % (A) 78 %; Platelet Count 150 k/uL (150-450); RDW 13.7 % (11.5-15.5); WBC 10.7 k/uL (3.8-10.6)
[2020-07-11 08:16] LABS: Calcium 7.8 mg/dL (8.4-10.2); Potassium 5.8 mmol/L (3.5-5.1)
[2020-07-11] MEDS: METOPROLOL TARTRATE 50 MG TAB PO SCH ×2 (09:30→21:34)
[2020-07-11] MEDS: Acetaminophen-Codeine 300-30mg TAB PO PRN (09:30)
[2020-07-11] MEDS: hydrALAZINE HCL 25 MG TAB PO SCH ×3 (09:30→21:34)
[2020-07-11] MEDS: PANTOPRAZOLE 40 MG/10 ML VIAL IV SCH (09:31)
[2020-07-11] MEDS ORDERED: HYDROmorphone 1 MG/ML 1 ML SYRINGE IVP PRN (09:34)
--- NOTE | 2020-07-11 10:22 | P.NPCON ---
History of Present Illness - Reason for Consult acute renal failure - History of Present Illness Reason for consultation: Acute kidney injury History of present illness: Patient is a 74-year-old male seen in consultation for acute kidney injury. Patient states he initially came to the emergency room on July 08 due to pain in his back. believes he received Toradol and was subsequently discharge d. Patient denies any further back pain. However patient states that for about 2 days prior to admission, he developed low urine output. Patient states he hasn't urinated in almost 3 days. He currently has a Mix catheter and remains oliguric. Patient has history of abdominal aortic aneurysm with stent placement and also has renal artery stents. Patient's CAT scan of the abdomen and pelvis revealed infrarenal abdominal aortic aneurysm measuring 7.5 cm. Aortic stent was noted. Renal artery stent on the right was present with the left renal artery stent present at an oblique angle. There was also concern for left renal artery thrombosis. Kidney ultrasound revealed 7.6 and 8.5 cm kidneys without any evidence of hydronephrosis. No evidence of hypotension. No fever or chills. Oral intake is fair. No vomiting or diarrhea. Patient states he did take about 2 Motrin in the last 3 days. Patient's creatinine in December 2018 was 1.9 and this admission it is at 11. He is receiving IV fluids. No edema. No history of diabetes. Vital signs are stable. General: The patient appeared well nourished and normally developed. HEENT: Head exam is unremarkable. Neck is without jugular venous distension. LUNGS: Lungs are clear to auscultation and percussion. Breath sounds decreased. HEART: Rate and Rhythm are regular. ABDOMEN: Soft, nontender. EXTREMITITES: No clubbing, cyanosis, or edema. Past Medical History Past Medical History: Hypertension Additional Past Medical History / Comment(s): AAA History of Any Multi-Drug Resistant Organisms: None Reported Additional Past Surgical History / Comment(s): AAA stent placement, hernia repair Past Psychological History: No Psychological Hx Reported Smoking Status: Former smoker Past Alcohol Use History: None Reported Past Drug Use History: None Reported - Past Family History Mother Additional Family Medical History / Comment(s): low blood pressure Sister(s) Family Medical History: Cancer, Myocardial Infarction ([place]) Additional Family Medical History / Comment(s): esophageal ca Brother(s) Family Medical History: Pneumonia Medications and Allergies Home Medications Medication Instructions Recorded Confirmed Type Aspirin EC [Ecotrin Low Dose] 81 mg PO DAILY@1200 01/12/19 07/10/20 History Atorvastatin [Lipitor] 80 mg PO DAILY@1200 01/12/19 07/10/20 History Cephalexin [Keflex] 500 mg PO Q6HR #28 cap 07/08/20 07/10/20 Rx Metoprolol Tartrate [Lopressor] 50 mg PO BID 07/10/20 07/10/20 History Valsartan 80 mg PO DAILY 07/10/20 07/10/20 History Allergies Allergy/AdvReac Type Severity Reaction Status Date / Time No Known Allergies Allergy Verified 07/10/20 17:13 Physical Exam Vitals: Vital Signs Temp Pulse Pulse Resp BP BP Pulse Ox 07/11/20 04:00 98.6 F 72 18 153/80 94 L 07/11/20 00:00 98.5 F 65 18 139/74 94 L 07/10/20 20:00 97.9 F 74 20 175/82 95 07/10/20 17:00 70 18 122/63 95 07/10/20 16:00 73 18 136/72 95 07/10/20 15:00 18 96 07/10/20 14:33 62 18 173/85 96 07/10/20 13:33 18 07/10/20 13:29 97.7 F 55 L 16 187/82 98 Intake and Output 07/10/20 07/11/20 07/11/20 22:59 06:59 14:59 Intake Total 240 Output Total 10 Balance 230 Intake: Oral 240 Output: Urine 10 Other: Voiding Method Indwelling Catheter Indwelling Catheter Weight 68.946 kg 70.2 kg Results - Lab Results Most recent lab results Calcium 7.8 mg/dL (8.4-10.2) L 07/11/20 06:44 Magnesium 2.2 mg/dL (1.6-2.3) 07/10/20 14:13 07/11/20 06:44 07/11/20 06:44 Assessment and Plan Plan: Assessment: 1. Acute kidney injury, oliguric. There is concern for left renal artery thrombosis. However he is noted to have bilateral atrophic kidneys. Creatinine was 1.92 in December 2018 and is at 11 this admission. No improvement with IV hydration. No hydronephrosis noted on kidney ultrasound. Cannot rule out CKD at this time. 2. Hyperkalemia secondary to acute kidney injury and metabolic acidosis. 3. Metabolic acidosis secondary to acute kidney injury. 4. Abdominal aortic aneurysm with aortic stent in place along with bilateral renal artery stents. Plan: Add oral sodium bicarbonate. Check urinalysis. Check LDH. Follow-up renal artery duplex ultrasound. May need further evaluation with CT with IV contrast. However I will await vascular surgery recommendations. Patient has atrophic kidneys therefore I am uncertain if revascularization will be of further benefit. I discussed with him the need to initiate renal replacement therapy due to oliguria and electrolyte imbalance. He understands. Consult vascular surgery for dialysis catheter placement. First treatment of hemodialysis today and second treatment tomorrow. Thank you for the consultation. I will continue to follow the patient with you during his hospital stay.
--- NOTE | 2020-07-11 13:14 | P.GSCN ---
<Lakshmi Aguilar - Last Filed: 07/11/20 16:08> History of Present Illness Consult date: 07/11/20 Reason for Consult: Possible aortic graft endoleak History of present illness: This is a 74-year-old male who presented to the emergency department for evaluation of abnormal labs he had prior to getting a computed tomography scan done. The patient was in the emergency department approximately 2 days ago for lower back pain. He was told he had a slight urinary tract infection and placed on Keflex at that time. He states he has not been able to urinate the past 2 days. He has a past medical history that includes hypertension and abdominal aortic aneurysm with stent placement. He is a former smoker. He denies any prior diagnosis of kidney disease. He is been seen by Dr. Phan in the past and had an abdominal aortic graft in August 2019. We passed to see the patient regarding his most recent computed tomography scan of the abdomen and pelvis without contrast that shows an abdominal aortic aneurysm that is not well evaluated without contrast but has increased in size. There is dilation of the unknown with questionable inflammatory change present as described. Atrophy of the left kidney, positioning of the left renal stent and an oblique angle, cannot exclude thrombosis of the left renal artery. Stent graft in place with some perigraft increased attenuation. Cannot exclude endoleak. There is minimal ascites present. Retained contrast. Large right inguinal hernia contains fat and likely some fluid as described. He denies any shortness of breath or chest pain. Denies any back pain or abdominal pain. Review of Systems 14 point review of systems was completed all pertinent positives and negatives as stated in the HPI. Past Medical History Past Medical History: Hypertension Additional Past Medical History / Comment(s): AAA History of Any Multi-Drug Resistant Organisms: None Reported Additional Past Surgical History / Comment(s): AAA stent placement, hernia repair Past Psychological History: No Psychological Hx Reported Smoking Status: Former smoker Past Alcohol Use History: None Reported Past Drug Use History: None Reported - Past Family History Mother Additional Family Medical History / Comment(s): low blood pressure Sister(s) Family Medical History: Cancer, Myocardial Infarction ([place]) Additional Family Medical History / Comment(s): esophageal ca Brother(s) Family Medical History: Pneumonia Medications and Allergies Home Medications Medication Instructions Recorded Confirmed Type Aspirin EC [Ecotrin Low Dose] 81 mg PO DAILY@1200 01/12/19 07/10/20 History Atorvastatin [Lipitor] 80 mg PO DAILY@1200 01/12/19 07/10/20 History Cephalexin [Keflex] 500 mg PO Q6HR #28 cap 07/08/20 07/10/20 Rx Metoprolol Tartrate [Lopressor] 50 mg PO BID 07/10/20 07/10/20 History Valsartan 80 mg PO DAILY 07/10/20 07/10/20 History Allergies Allergy/AdvReac Type Severity Reaction Status Date / Time No Known Allergies Allergy Verified 07/10/20 17:13 Surgical - Exam Vital Signs Temp Pulse Resp BP Pulse Ox 97.7 F 55 L 16 187/82 98 07/10/20 13:29 07/10/20 13:29 07/10/20 13:29 07/10/20 13:29 07/10/20 13:29 General appearance: The patient is alert, oriented, in no acute distress. HET: Head is normocephalic and atraumatic. Neck: Supple without lymphadenopathy. Trachea midline. Heart: S1 S2. Regular rate and rhythm. Lungs: No crackles or wheezes are heard. Abdomen: Soft, nontender, nondistended with bowel sounds. No peritoneal signs. No palpable organomegaly or masses. Extremities: Normal skin color and turgor. No cyanosis, rash, ulceration, clubbing, or edema. Palpable bilateral femoral and DP pulses. Neurological: No focal deficits. Strength and sensation are grossly intact. Results CT abdomen and pelvis without contrast reviewed as stated in the HPI - Labs 07/11/20 06:44 07/11/20 06:44 Abnormal Lab Results - Last 24 Hours (Table) 07/10/20 07/10/20 07/10/20 Range/Units 12:05 14:13 14:13 WBC 13.0 H (3.8-10.6) k/uL RBC 3.93 L (4.30-5.90) m/uL Hgb 12.1 L (13.0-17.5) gm/dL Hct 37.4 L (39.0-53.0) % Plt Count 149 L (150-450) k/uL Neutrophils # 10.1 H (1.3-7.7) k/uL Sodium 130 L (137-145) mmol/L Potassium 5.5 H (3.5-5.1) mmol/L Carbon Dioxide 19 L (22-30) mmol/L BUN 74 H 75 H (9-20) mg/dL Creatinine 10.99 H* 10.48 H* (0.66-1.25) mg/dL Glucose (74-99) mg/dL Calcium (8.4-10.2) mg/dL Lactate Dehydrogenase (313-618) U/L Total Protein 6.2 L (6.3-8.2) g/dL 07/10/20 07/10/20 07/11/20 Range/Units 18:17 21:50 06:44 WBC 13.0 H 10.7 H (3.8-10.6) k/uL RBC 4.00 L 3.80 L (4.30-5.90) m/uL Hgb 12.4 L 11.8 L (13.0-17.5) gm/dL Hct 38.5 L 36.4 L (39.0-53.0) % Plt Count (150-450) k/uL Neutrophils # 10.0 H 8.4 H (1.3-7.7) k/uL Sodium 131 L (137-145) mmol/L Potassium 5.5 H (3.5-5.1) mmol/L Carbon Dioxide 16 L (22-30) mmol/L BUN 78 H (9-20) mg/dL Creatinine 10.59 H* (0.66-1.25) mg/dL Glucose (74-99) mg/dL Calcium (8.4-10.2) mg/dL Lactate Dehydrogenase (313-618) U/L Total Protein (6.3-8.2) g/dL 07/11/20 07/11/20 Range/Units 06:44 06:44 WBC (3.8-10.6) k/uL RBC (4.30-5.90) m/uL Hgb (13.0-17.5) gm/dL Hct (39.0-53.0) % Plt Count (150-450) k/uL Neutrophils # (1.3-7.7) k/uL Sodium 133 L (137-145) mmol/L Potassium 5.8 H (3.5-5.1) mmol/L Carbon Dioxide 16 L (22-30) mmol/L BUN 80 H (9-20) mg/dL Creatinine 11.27 H* (0.66-1.25) mg/dL Glucose 69 L (74-99) mg/dL Calcium 7.8 L (8.4-10.2) mg/dL Lactate Dehydrogenase 775 H (313-618) U/L Total Protein (6.3-8.2) g/dL Diabetes panel 07/10/20 07/10/20 07/10/20 Range/Units 12:05 14:13 21:50 Sodium 130 L 131 L (137-145) mmol/L Potassium 5.5 H 5.5 H (3.5-5.1) mmol/L Chloride 98 102 (98-107) mmol/L Carbon Dioxide 19 L 16 L (22-30) mmol/L BUN 74 H 75 H 78 H (9-20) mg/dL Creatinine 10.99 H* 10.48 H* 10.59 H* (0.66-1.25) mg/dL Glucose 96 97 (74-99) mg/dL Calcium 9.0 8.5 (8.4-10.2) mg/dL AST 38 (17-59) U/L ALT 29 (4-49) U/L Alkaline Phosphatase 86 (38-126) U/L Total Protein 6.2 L (6.3-8.2) g/dL Albumin 3.5 (3.5-5.0) g/dL 07/11/20 Range/Units 06:44 Sodium 133 L (137-145) mmol/L Potassium 5.8 H (3.5-5.1) mmol/L Chloride 104 (98-107) mmol/L Carbon Dioxide 16 L (22-30) mmol/L BUN 80 H (9-20) mg/dL Creatinine 11.27 H* (0.66-1.25) mg/dL Glucose 69 L (74-99) mg/dL Calcium 7.8 L (8.4-10.2) mg/dL AST (17-59) U/L ALT (4-49) U/L Alkaline Phosphatase (38-126) U/L Total Protein (6.3-8.2) g/dL Albumin (3.5-5.0) g/dL Calcium panel 07/10/20 07/10/20 07/11/20 Range/Units 14:13 21:50 06:44 Calcium 9.0 8.5 7.8 L (8.4-10.2) mg/dL Albumin 3.5 (3.5-5.0) g/dL Pituitary panel 07/10/20 07/10/20 07/10/20 Range/Units 12:05 14:13 21:50 Sodium 130 L 131 L (137-145) mmol/L Potassium 5.5 H 5.5 H (3.5-5.1) mmol/L Chloride 98 102 (98-107) mmol/L Carbon Dioxide 19 L 16 L (22-30) mmol/L BUN 74 H 75 H 78 H (9-20) mg/dL Creatinine 10.99 H* 10.48 H* 10.59 H* (0.66-1.25) mg/dL Glucose 96 97 (74-99) mg/dL Calcium 9.0 8.5 (8.4-10.2) mg/dL 07/11/20 Range/Units 06:44 Sodium 133 L (137-145) mmol/L Potassium 5.8 H (3.5-5.1) mmol/L Chloride 104 (98-107) mmol/L Carbon Dioxide 16 L (22-30) mmol/L BUN 80 H (9-20) mg/dL Creatinine 11.27 H* (0.66-1.25) mg/dL Glucose 69 L (74-99) mg/dL Calcium 7.8 L (8.4-10.2) mg/dL Adrenal panel 07/10/20 07/10/20 07/10/20 Range/Units 12:05 14:13 21:50 Sodium 130 L 131 L (137-145) mmol/L Potassium 5.5 H 5.5 H (3.5-5.1) mmol/L Chloride 98 102 (98-107) mmol/L Carbon Dioxide 19 L 16 L (22-30) mmol/L BUN 74 H 75 H 78 H (9-20) mg/dL Creatinine 10.99 H* 10.48 H* 10.59 H* (0.66-1.25) mg/dL Glucose 96 97 (74-99) mg/dL Calcium 9.0 8.5 (8.4-10.2) mg/dL Total Bilirubin 0.5 (0.2-1.3) mg/dL AST 38 (17-59) U/L ALT 29 (4-49) U/L Alkaline Phosphatase 86 (38-126) U/L Total Protein 6.2 L (6.3-8.2) g/dL Albumin 3.5 (3.5-5.0) g/dL 07/11/20 Range/Units 06:44 Sodium 133 L (137-145) mmol/L Potassium 5.8 H (3.5-5.1) mmol/L Chloride 104 (98-107) mmol/L Carbon Dioxide 16 L (22-30) mmol/L BUN 80 H (9-20) mg/dL Creatinine 11.27 H* (0.66-1.25) mg/dL Glucose 69 L (74-99) mg/dL Calcium 7.8 L (8.4-10.2) mg/dL Total Bilirubin (0.2-1.3) mg/dL AST (17-59) U/L ALT (4-49) U/L Alkaline Phosphatase (38-126) U/L Total Protein (6.3-8.2) g/dL Albumin (3.5-5.0) g/dL Assessment and Plan Assessment: 1. Abdominal aortic aneurysm with endovascular aortic repair with graft 2. Acute kidney injury, oliguric 3. Hypertension Plan: Patient was discussed with Dr. Dejesus who reviewed his CT of abdoman and pelvis, and will see patient this afternoon. Renal artery duplex ordered. Appreciate recommendations per nephrology, plan is for dialysis catheter placement. Dialysis recommendations per nephrology. Further recommendations to follow. Thank you for this consultation allowing us take part in the plan of care of your patient during his hospital stay. The above dictated assessment and findings were discussed with Dr. Dejesus. The impression and plan of care have been directed as dictated. <Matthias Erickson - Last Filed: 07/11/20 17:20> Surgical - Exam Osteopathic Statement: *. No significant issues noted on an osteopathic structural exam other than those noted in the History and Physical/Consult. Vital Signs Temp Pulse Resp BP Pulse Ox 97.7 F 55 L 16 187/82 98 07/10/20 13:29 07/10/20 13:29 07/10/20 13:29 07/10/20 13:29 07/10/20 13:29 Results - Labs 07/11/20 06:44 07/11/20 06:44 Abnormal Lab Results - Last 24 Hours (Table) 07/10/20 07/10/20 07/11/20 Range/Units 18:17 21:50 06:44 WBC 13.0 H 10.7 H (3.8-10.6) k/uL RBC 4.00 L 3.80 L (4.30-5.90) m/uL Hgb 12.4 L 11.8 L (13.0-17.5) gm/dL Hct 38.5 L 36.4 L (39.0-53.0) % Neutrophils # 10.0 H 8.4 H (1.3-7.7) k/uL Sodium 131 L (137-145) mmol/L Potassium 5.5 H (3.5-5.1) mmol/L Carbon Dioxide 16 L (22-30) mmol/L BUN 78 H (9-20) mg/dL Creatinine 10.59 H* (0.66-1.25) mg/dL Glucose (74-99) mg/dL Calcium (8.4-10.2) mg/dL Lactate Dehydrogenase (313-618) U/L 07/11/20 07/11/20 Range/Units 06:44 06:44 WBC (3.8-10.6) k/uL RBC (4.30-5.90) m/uL Hgb (13.0-17.5) gm/dL Hct (39.0-53.0) % Neutrophils # (1.3-7.7) k/uL Sodium 133 L (137-145) mmol/L Potassium 5.8 H (3.5-5.1) mmol/L Carbon Dioxide 16 L (22-30) mmol/L BUN 80 H (9-20) mg/dL Creatinine 11.27 H* (0.66-1.25) mg/dL Glucose 69 L (74-99) mg/dL Calcium 7.8 L (8.4-10.2) mg/dL Lactate Dehydrogenase 775 H (313-618) U/L Diabetes panel 07/10/20 07/11/20 Range/Units 21:50 06:44 Sodium 131 L 133 L (137-145) mmol/L Potassium 5.5 H 5.8 H (3.5-5.1) mmol/L Chloride 102 104 (98-107) mmol/L Carbon Dioxide 16 L 16 L (22-30) mmol/L BUN 78 H 80 H (9-20) mg/dL Creatinine 10.59 H* 11.27 H* (0.66-1.25) mg/dL Glucose 97 69 L (74-99) mg/dL Calcium 8.5 7.8 L (8.4-10.2) mg/dL Calcium panel 07/10/20 07/11/20 Range/Units 21:50 06:44 Calcium 8.5 7.8 L (8.4-10.2) mg/dL Pituitary panel 07/10/20 07/11/20 Range/Units 21:50 06:44 Sodium 131 L 133 L (137-145) mmol/L Potassium 5.5 H 5.8 H (3.5-5.1) mmol/L Chloride 102 104 (98-107) mmol/L Carbon Dioxide 16 L 16 L (22-30) mmol/L BUN 78 H 80 H (9-20) mg/dL Creatinine 10.59 H* 11.27 H* (0.66-1.25) mg/dL Glucose 97 69 L (74-99) mg/dL Calcium 8.5 7.8 L (8.4-10.2) mg/dL Adrenal panel 07/10/20 07/11/20 Range/Units 21:50 06:44 Sodium 131 L 133 L (137-145) mmol/L Potassium 5.5 H 5.8 H (3.5-5.1) mmol/L Chloride 102 104 (98-107) mmol/L Carbon Dioxide 16 L 16 L (22-30) mmol/L BUN 78 H 80 H (9-20) mg/dL Creatinine 10.59 H* 11.27 H* (0.66-1.25) mg/dL Glucose 97 69 L (74-99) mg/dL Calcium 8.5 7.8 L (8.4-10.2) mg/dL
[2020-07-11] MEDS: SODIUM BICARBONATE TAB 650 MG TAB PO SCH ×3 (13:16→21:34)
--- NOTE | 2020-07-11 14:07 | P.HPIM ---
History of Present Illness H&P Date: 07/11/20 Chief Complaint: Abdominal pain Patient presented to the office yesterday where I examined him was complaining of abdominal pain I palpated his abdomen he did not necessarily guarded but said it was uncomfortable also stated that he hadn't urinated in 2 days, this patient is a very reliable historian. Decision was made to get labs CBC comprehensive metabolic panel send patient for stat CT of the abdomen on the eighth he was seen in the emergency room had a CT performed at that time without contrast and I wanted to get a CT with contrast patient has a history of a aortic aneurysm repair just shy of a year ago percutaneously with stenting by Dr. Dejesus. My concerns about possible endoleak of the aneurysm repair, possible renal obstruction, patient also has a large right inguinal hernia that was being scheduled for repair and the less so I was concerned for a possible partial small bowel obstruction. CAT scan called me back in the office and told me that his Bun was 70 his creatinine was 10 , basically canceling the CT with contrast suggested patient be in turn instead evaluated in the emergency room and ultrasound subsequently suggests a possible bladder mass, and endoleak in the aneurysm repair cannot be ruled out. Patient is resting comfortably in the room at this time Review of Systems Constitutional: Reports as per HPI Ears, nose, mouth and throat: Reports as per HPI Cardiovascular: Reports as per HPI Respiratory: Reports as per HPI Gastrointestinal: Reports as per HPI Genitourinary: Reports as per HPI (Oliguria, abdominal pain) Musculoskeletal: Reports arm numbness/tingling Integumentary: Reports as per HPI Neurological: Reports as per HPI Psychiatric: Reports as per HPI Endocrine: Reports as per HPI Past Medical History Past Medical History: Hypertension Additional Past Medical History / Comment(s): AAA History of Any Multi-Drug Resistant Organisms: None Reported Additional Past Surgical History / Comment(s): AAA stent placement, hernia repair Past Psychological History: No Psychological Hx Reported Smoking Status: Former smoker Past Alcohol Use History: None Reported Past Drug Use History: None Reported - Past Family History Mother Additional Family Medical History / Comment(s): low blood pressure Sister(s) Family Medical History: Cancer, Myocardial Infarction ([place]) Additional Family Medical History / Comment(s): esophageal ca Brother(s) Family Medical History: Pneumonia Medications and Allergies Home Medications Medication Instructions Recorded Confirmed Type Aspirin EC [Ecotrin Low Dose] 81 mg PO DAILY@1200 01/12/19 07/10/20 History Atorvastatin [Lipitor] 80 mg PO DAILY@1200 01/12/19 07/10/20 History Cephalexin [Keflex] 500 mg PO Q6HR #28 cap 07/08/20 07/10/20 Rx Metoprolol Tartrate [Lopressor] 50 mg PO BID 07/10/20 07/10/20 History RX: Valsartan 80 mg PO DAILY 07/10/20 07/10/20 History Allergies Allergy/AdvReac Type Severity Reaction Status Date / Time No Known Allergies Allergy Verified 07/10/20 17:13 Physical Exam Osteopathic Statement: *. No significant issues noted on an osteopathic structural exam other than those noted in the History and Physical/Consult. Vitals: Vital Signs Temp Pulse Pulse Resp BP BP Pulse Ox 07/11/20 04:00 98.6 F 72 18 153/80 94 L 07/11/20 00:00 98.5 F 65 18 139/74 94 L 07/10/20 20:00 97.9 F 74 20 175/82 95 07/10/20 17:00 70 18 122/63 95 07/10/20 16:00 73 18 136/72 95 07/10/20 15:00 18 96 07/10/20 14:33 62 18 173/85 96 Intake and Output 07/10/20 07/11/20 07/11/20 22:59 06:59 14:59 Intake Total 240 0 Output Total 10 Balance 230 0 Intake: Oral 240 0 Output: Urine 10 Other: Voiding Method Indwelling Catheter Indwelling Catheter Weight 68.946 kg 70.2 kg General: [Patient awake, alert and oriented times 3. Patient in no acute distress.] HEENT: [PERRL. EOMI. No pharyngeal erythema or exudate.] Neck: [No adenopathy.] Cardiac: [Heart regular in rate and rhythm. No S3. No S4. No clicks, rubs. No murmur.] Lungs: [Clear to auscultation bilaterally.] Abdomen: [No mass. No organomegaly. Bowel sounds presnt and normoactive in all 4 quadrants.] Extremes: [No edema no cyanosis no claudication normal pulses] : Normal male genitalia Musculoskeletal: [No joint erythema, edema or tenderness.] Skin: [No rash.] Neurologic: [No lateralizing deficits. CN II - XII grossly intact.] Lymphatic: [No adenopathy.] Results CBC & Chem 7: 07/11/20 06:44 07/11/20 06:44 Labs: Abnormal Lab Results - Last 24 Hours (Table) 07/10/20 07/10/20 07/10/20 Range/Units 14:13 14:13 18:17 WBC 13.0 H 13.0 H (3.8-10.6) k/uL RBC 3.93 L 4.00 L (4.30-5.90) m/uL Hgb 12.1 L 12.4 L (13.0-17.5) gm/dL Hct 37.4 L 38.5 L (39.0-53.0) % Plt Count 149 L (150-450) k/uL Neutrophils # 10.1 H 10.0 H (1.3-7.7) k/uL Sodium 130 L (137-145) mmol/L Potassium 5.5 H (3.5-5.1) mmol/L Carbon Dioxide 19 L (22-30) mmol/L BUN 75 H (9-20) mg/dL Creatinine 10.48 H* (0.66-1.25) mg/dL Glucose (74-99) mg/dL Calcium (8.4-10.2) mg/dL Lactate Dehydrogenase (313-618) U/L Total Protein 6.2 L (6.3-8.2) g/dL 07/10/20 07/11/20 07/11/20 Range/Units 21:50 06:44 06:44 WBC 10.7 H (3.8-10.6) k/uL RBC 3.80 L (4.30-5.90) m/uL Hgb 11.8 L (13.0-17.5) gm/dL Hct 36.4 L (39.0-53.0) % Plt Count (150-450) k/uL Neutrophils # 8.4 H (1.3-7.7) k/uL Sodium 131 L 133 L (137-145) mmol/L Potassium 5.5 H 5.8 H (3.5-5.1) mmol/L Carbon Dioxide 16 L 16 L (22-30) mmol/L BUN 78 H 80 H (9-20) mg/dL Creatinine 10.59 H* 11.27 H* (0.66-1.25) mg/dL Glucose 69 L (74-99) mg/dL Calcium 7.8 L (8.4-10.2) mg/dL Lactate Dehydrogenase (313-618) U/L Total Protein (6.3-8.2) g/dL 07/11/20 Range/Units 06:44 WBC (3.8-10.6) k/uL RBC (4.30-5.90) m/uL Hgb (13.0-17.5) gm/dL Hct (39.0-53.0) % Plt Count (150-450) k/uL Neutrophils # (1.3-7.7) k/uL Sodium (137-145) mmol/L Potassium (3.5-5.1) mmol/L Carbon Dioxide (22-30) mmol/L BUN (9-20) mg/dL Creatinine (0.66-1.25) mg/dL Glucose (74-99) mg/dL Calcium (8.4-10.2) mg/dL Lactate Dehydrogenase 775 H (313-618) U/L Total Protein (6.3-8.2) g/dL Thrombosis Risk Factor Assmnt - Choose All That Apply Each Risk Factor Represents 3 Points: Age 75 years or older Thrombosis Risk Factor Assessment Total Risk Factor Score: 3 Thrombosis Risk Factor Assessment Level: Moderate Risk Assessment and Plan (1) Mechanical back pain Current Visit: No Status: Acute Code(s): M54.9 - DORSALGIA, UNSPECIFIED SNOMED Code(s): 332374063 (2) Degenerative disc disease, lumbar Current Visit: No Status: Acute Code(s): M51.36 - OTHER INTERVERTEBRAL DISC DEGENERATION, LUMBAR REGION SNOMED Code(s): 13805497 (3) Urinary tract infection Current Visit: No Status: Acute Code(s): N39.0 - URINARY TRACT INFECTION, SITE NOT SPECIFIED SNOMED Code(s): 96182211 (4) Renal failure Current Visit: Yes Status: Acute Code(s): N19 - UNSPECIFIED KIDNEY FAILURE SNOMED Code(s): 82559727 (5) Inguinal hernia Current Visit: Yes Status: Acute Code(s): K40.90 - UNIL INGUINAL HERNIA, W/O OBST OR GANGR, NOT SPCF RECUR SNOMED Code(s): 254220803 (6) Renal artery occlusion Current Visit: Yes Status: Acute Code(s): N28.0 - ISCHEMIA AND INFARCTION OF KIDNEY SNOMED Code(s): 112510432 (7) Endoleak of aortic graft Current Visit: Yes Status: Acute Code(s): T82.330A - LEAKAGE OF AORTIC (BIFURCATION) GRAFT (REPLACEMENT), INIT SNOMED Code(s): 082235255269494 Plan: currently resting comfortably in bed Possible endoleak aortic aneurysm repair Possible urinary obstruction possible bladder mass' Hypertension by history well controlled Nephrology consult pending Urology consult pending Vascular surgery consult for possible dialysis access Time with Patient: Greater than 30
[2020-07-11] MEDS ORDERED: LIDOCAINE 1% INJ 10MG/ML (20 ML MDV) SQ ONE (14:49)
[2020-07-11] MEDS ORDERED: MIDAZOLAM 2 MG/2 ML VIAL IVP ONE (14:49)
[2020-07-11] MEDS ORDERED: fentaNYL (PF) 50 MCG/ML 2 ML AMP IVP ONE (14:49)
--- NOTE | 2020-07-11 16:16 | CONS ---
CONSULTATION REASON WAS CONSULTATION: Placement of dialysis catheter for acute renal failure. This is a 74-year-old gentleman who has been admitted with history of acute on chronic renal failure with high BUN and creatinine. The patient had a CT scan of the abdomen. Patient has a history of aortic stent graft placed in the past. There was a concern also about renal artery thrombosis. SURGICAL HISTORY: Patient had aortic stent graft placed in the past. Also patient had a hernia repair done on the right side in the past. He has a large hernia on the right groin. MEDICAL HISTORY: History of hypertension. PHYSICAL EXAMINATION: Patient was seen in his room, lying comfortably in bed. NECK: Supple. CHEST: Clear to auscultation. ABDOMEN: Soft. The patient has a large hernia on the right groin. EXTREMITIES: Femoral pulses are palpable bilateral. PLAN: Placement of the dialysis catheter. Risks and complications discussed. MMJACQUELINEL / MIGNONN: [id number] /
--- NOTE | 2020-07-11 17:07 | PCN ---
PROCEDURE NOTE PREOPERATIVE DIAGNOSIS: Acute chronic renal failure. POSTOPERATIVE DIAGNOSIS: Acute chronic renal failure. PROCEDURE PERFORMED: Ultrasound-guided 23 cm dialysis catheter left femoral approach. Patient was brought to the offset label rewinder. Left groin was prepped and draped in a proper sterile manner. Under local and IV sedation, ultrasound-guided micropuncture introduced in the left common femoral vein. Micropuncture guide was passed and 4- Polish dilator advanced on the top of the guidewire. Then we placed a regular guidewire, then placed the dilator and placed a 3 Lumen dialysis catheter on the top of the guidewire. The guidewire was removed, flushed with heparin saline and hep-locked and secured with 3-0 nylon. Dressing applied. Patient tolerated the procedure well. MMODL / IJN: [id number] /
[2020-07-11] MEDS: ATORVASTATIN 80 MG TAB PO SCH (17:35)
[2020-07-11] MEDS: SODIUM CHLORIDE 0.9% 1,000 ML IV SCH (17:40)
--- NOTE | 2020-07-11 17:56 | P.GSCN ---
History of Present Illness Consult date: 07/11/20 Reason for Consult: Possible bladder tumor History of present illness: The patient is a 74-year-old male admitted yesterday for evaluation of acute renal failure and anuria. He was noted to have a BUN/creatinine of 74/10.99 at that time. Renal ultrasound was performed and showed no evidence of hydronephrosis. The ultrasound was interpreted as showing a 5.6 by a 2.4 x 5.9 cm vascular mass in the bladder suggestive of a tumor. CT scan of the abdomen and pelvis was performed later on 07/10. There was no evidence of hydronephrosis and the bladder at this time appeared unremarkable. The patient had previously undergone endovascular repair of an abdominal aortic aneurysm with a [id number] graft in 08/2018. The CT scan showed some increase in diameter of the aneurysm as well as some angulation of the left renal artery. A large right inguinal hernia was present. Urology consultation was obtained due to the possibility of a bladder tumor noted on the renal ultrasound. The patient says that his problem began at least 4 or 5 days ago. He says that she's had virtually no urine output since 07/06. He began experiencing pain in the right flank and presented to the emergency room on 07/08. A urinalysis showed a small amount of hematuria and pyuria and the patient was suspected to have a urine infection and started on Keflex. Unfortunately no culture was obtained. CT of the lumbosacral spine without contrast was also obtained and showed no acute abnormality of the spine. The patient was placed on Toradol due to his ba ck pain and says that this has improved somewhat. He reportedly had some blood in his stool in the ER on 07/10. The patient has had no recent gross hematuria, but was noted to have bloody drainage of urine when a catheter was inserted following admission. He has had essentially no urine output since then. He was evaluated by due to hematuria in the. CT urogram showed a 7.2 cm abdominal aortic aneurysm for which the patient underwent the endovascular repair. Cystoscopy was performed on 08/10/2018 and showed no abnormalities other than some prostatic enlargement. Creatinine was 1.92 in 12/2018. Review of Systems - Constitutional Denies chills, Denies fever - Cardiovascular Denies shortness of breath - Gastrointestinal Reports as per HPI, Denies vomiting - Genitourinary Reports as per HPI Past Medical History Past Medical History: Hypertension Additional Past Medical History / Comment(s): AAA History of Any Multi-Drug Resistant Organisms: None Reported Additional Past Surgical History / Comment(s): AAA stent placement, right inguinal hernia repair Past Psychological History: No Psychological Hx Reported Smoking Status: Former smoker Past Alcohol Use History: None Reported Past Drug Use History: None Reported - Past Family History Mother Additional Family Medical History / Comment(s): low blood pressure Sister(s) Family Medical History: Cancer, Myocardial Infarction ([place]) Additional Family Medical History / Comment(s): esophageal ca Brother(s) Family Medical History: Pneumonia Medications and Allergies Home Medications Medication Instructions Recorded Confirmed Type Aspirin EC [Ecotrin Low Dose] 81 mg PO DAILY@1200 01/12/19 07/10/20 History Atorvastatin [Lipitor] 80 mg PO DAILY@1200 01/12/19 07/10/20 History Cephalexin [Keflex] 500 mg PO Q6HR #28 cap 07/08/20 07/10/20 Rx Metoprolol Tartrate [Lopressor] 50 mg PO BID 07/10/20 07/10/20 History Valsartan 80 mg PO DAILY 07/10/20 07/10/20 History Allergies Allergy/AdvReac Type Severity Reaction Status Date / Time No Known Allergies Allergy Verified 07/10/20 17:13 Surgical - Exam Vital Signs Temp Pulse Resp BP Pulse Ox 97.7 F 55 L 16 187/82 98 07/10/20 13:29 07/10/20 13:29 07/10/20 13:29 07/10/20 13:29 07/10/20 13:29 - General well developed, well nourished, no distress - ENT no hearing loss - Neck no masses, no lymphadectomy - Respiratory normal respiratory effort - Abdomen Abdomen: soft, non tender, no organomegaly Hernia: inguinal (Large right inguinal hernia which extends into the superior right scrotum.) - Genitourinary normal penis with no external lesions, testicles present, testicles non-tender, other (A small amount of bloody urine is present in the Mix catheter tubing) Results - Labs 07/11/20 06:44 07/11/20 06:44 Abnormal Lab Results - Last 24 Hours (Table) 0807/10/20 07/11/20 Range/Units 18:17 21:50 06:44 WBC 13.0 H 10.7 H (3.8-10.6) k/uL RBC 4.00 L 3.80 L (4.30-5.90) m/uL Hgb 12.4 L 11.8 L (13.0-17.5) gm/dL Hct 38.5 L 36.4 L (39.0-53.0) % Neutrophils # 10.0 H 8.4 H (1.3-7.7) k/uL Sodium 131 L (137-145) mmol/L Potassium 5.5 H (3.5-5.1) mmol/L Carbon Dioxide 16 L (22-30) mmol/L BUN 78 H (9-20) mg/dL Creatinine 10.59 H* (0.66-1.25) mg/dL Glucose (74-99) mg/dL Calcium (8.4-10.2) mg/dL Lactate Dehydrogenase (313-618) U/L 07/11/20 07/11/20 Range/Units 06:44 06:44 WBC (3.8-10.6) k/uL RBC (4.30-5.90) m/uL Hgb (13.0-17.5) gm/dL Hct (39.0-53.0) % Neutrophils # (1.3-7.7) k/uL Sodium 133 L (137-145) mmol/L Potassium 5.8 H (3.5-5.1) mmol/L Carbon Dioxide 16 L (22-30) mmol/L BUN 80 H (9-20) mg/dL Creatinine 11.27 H* (0.66-1.25) mg/dL Glucose 69 L (74-99) mg/dL Calcium 7.8 L (8.4-10.2) mg/dL Lactate Dehydrogenase 775 H (313-618) U/L Diabetes panel 07/10/20 07/11/20 Range/Units 21:50 06:44 Sodium 131 L 133 L (137-145) mmol/L Potassium 5.5 H 5.8 H (3.5-5.1) mmol/L Chloride 102 104 (98-107) mmol/L Carbon Dioxide 16 L 16 L (22-30) mmol/L BUN 78 H 80 H (9-20) mg/dL Creatinine 10.59 H* 11.27 H* (0.66-1.25) mg/dL Glucose 97 69 L (74-99) mg/dL Calcium 8.5 7.8 L (8.4-10.2) mg/dL Calcium panel 07/10/20 07/11/20 Range/Units 21:50 06:44 Calcium 8.5 7.8 L (8.4-10.2) mg/dL Pituitary panel 07/10/20 07/11/20 Range/Units 21:50 06:44 Sodium 131 L 133 L (137-145) mmol/L Potassium 5.5 H 5.8 H (3.5-5.1) mmol/L Chloride 102 104 (98-107) mmol/L Carbon Dioxide 16 L 16 L (22-30) mmol/L BUN 78 H 80 H (9-20) mg/dL Creatinine 10.59 H* 11.27 H* (0.66-1.25) mg/dL Glucose 97 69 L (74-99) mg/dL Calcium 8.5 7.8 L (8.4-10.2) mg/dL Adrenal panel 07/10/20 07/11/20 Range/Units 21:50 06:44 Sodium 131 L 133 L (137-145) mmol/L Potassium 5.5 H 5.8 H (3.5-5.1) mmol/L Chloride 102 104 (98-107) mmol/L Carbon Dioxide 16 L 16 L (22-30) mmol/L BUN 78 H 80 H (9-20) mg/dL Creatinine 10.59 H* 11.27 H* (0.66-1.25) mg/dL Glucose 97 69 L (74-99) mg/dL Calcium 8.5 7.8 L (8.4-10.2) mg/dL - Imaging CT scan - abdomen: image reviewed CT scan - pelvis: image reviewed US - kidney/bladder: image reviewed Assessment and Plan (1) Renal failure Narrative/Plan: The patient's acute renal failure may be from a primary vascular cause however he did have some ketorolac recently which may have worsened any underlying renal insufficiency. Study of the renal arteries via duplex ultrasound is pending. I reviewed the patient's CT scan and the findings do not suggest an underlying bladder tumor. The blood draining from his catheter may be related to catheter trauma and the microscopic hematuria and pyuria noted on 07/08 were probably related to his acute renal failure. Dr. Gaines had previously evaluated this patient and will make a decision as to whether or not repeat cystoscopy is warranted. Current Visit: Yes Status: Acute Code(s): N19 - UNSPECIFIED KIDNEY FAILURE SNOMED Code(s): 09439345
--- NOTE | 2020-07-11 18:24 | IR ---
EXAMINATION TYPE: IR cvc insert non tunneled DATE OF EXAM: 07/11/2020 COMPARISON: NONE HISTORY: Insertion of non tunneled central venous catheter TECHNIQUE: Fluoroscopy. FINDINGS: Fluoroscopic guidance was provided during procedure for performing physician. A total of 0.3 minutes of fluoroscopic time was utilized during the procedure and 101 spot images was acquired. Please see operative report for additional details. IMPRESSION: As Above.
--- NOTE | 2020-07-11 18:29 | US ---
EXAMINATION TYPE: US renal artery duplex complete DATE OF EXAM: 07/11/2020 COMPARISON: NONE CLINICAL HISTORY: 74-year-old male r/o blocked stents. Back pain, AAA stent 09/16. Abnormal CT exam TECHNIQUE: Multiple sonographic images of the kidneys are obtained. Spectral waveform analysis of the abdominal aorta and renal vasculature. FINDINGS: MEASUREMENTS: RENAL SIZE: Rt Kidney: 8.7 x 4.2 x 4.5cm Lt Kidney: 6.9 x 3.7 x 3.1cm Technical limitations due to large amount of overlying bowel content. Stenting noted within the abd ominal aorta. Atrophic kidneys. Unable to visualize renal arteries bilaterally. Limited evaluation of segmental and arcuate arteries bilaterally. IMPRESSION: Inadequate assessment due to overlying bowel content. Unable to visualize the renal arteries.
[2020-07-12 00:33] LABS: Hepatitis B Surface AB- Quant 3.5 mIU/mL; Hepatitis B Surface Antibody Non-Reactive (Non-Reactive); Hepatitis B Surface Antigen Non-Reactive (Non-Reactive)
[2020-07-12] MEDS: SODIUM CHLORIDE 0.9% 1,000 ML IV SCH ×2 (06:51→21:15)
[2020-07-12] MEDS: hydrALAZINE HCL 25 MG TAB PO SCH ×3 (10:39→21:14)
[2020-07-12] MEDS: PANTOPRAZOLE 40 MG/10 ML VIAL IV SCH (10:40)
[2020-07-12] MEDS: SODIUM BICARBONATE TAB 650 MG TAB PO SCH ×3 (10:40→21:14)
[2020-07-12] MEDS: ATORVASTATIN 80 MG TAB PO SCH (10:40)
[2020-07-12] MEDS: METOPROLOL TARTRATE 50 MG TAB PO SCH ×2 (10:40→21:14)
--- NOTE | 2020-07-12 11:20 | P.PN ---
Subjective Patient is seen in follow for acute kidney injury. He was started on hemodialysis yesterday. Tolerated the first treatment well. Scheduled to und ergo CT angiogram of the abdomen and pelvis today to further assess the renal arteries. Denies chest pain or shortness of breath. Oral intake is good. Remains oliguric. Vital signs are stable. General: The patient appeared well nourished and normally developed. HEENT: Head exam is unremarkable. Neck is without jugular venous distension. LUNGS: Lungs are clear to auscultation and percussion. Breath sounds decreased. HEART: Rate and Rhythm are regular. ABDOMEN: Soft, nontender. EXTREMITITES: No clubbing, cyanosis, or edema. Objective - Vital Signs Vital signs: Vital Signs Temp 97.8 F 07/12/20 09:40 Pulse 60 07/12/20 09:40 Resp 16 07/12/20 09:40 BP 173/73 07/12/20 09:40 Pulse Ox 92 L 07/12/20 09:40 Intake & Output 07/11/20 07/12/20 07/12/20 18:59 06:59 18:59 Intake Total 360 240 Output Total 0 0 0 Balance 360 0 240 Weight 71.6 kg Intake: Oral 360 240 Output: Urine 0 0 0 Hemodialysis 0 Other: Voiding Method Indwelling Catheter Indwelling Catheter Indwelling Catheter # Bowel Movements 1 - Labs CBC & Chem 7: 07/11/20 06:44 07/11/20 06:44 Assessment and Plan Plan: Assessment: 1. Acute kidney injury, oliguric. There is concern for left renal artery thrombosis. However he is noted to have bilateral atrophic kidneys. Creatinine was 1.92 in December 2018 and is at 11 this admission. No improvement with IV hydration. No hydronephrosis noted on kidney ultrasound. Started on hemodialysis July 11. 2. Hyperkalemia secondary to acute kidney injury and metabolic acidosis. Expect improvement postdialysis. 3. Metabolic acidosis secondary to acute kidney injury. Expect improvement postdialysis. Also maintain on oral sodium bicarbonate. 4. Abdominal aortic aneurysm with aortic stent in place along with bilateral renal artery stents. Plan: Follow-up UA. Follow-up CT angiogram. Patient has atrophic kidneys therefore I am uncertain if revascularization will be of further benefit. Discussed case with vascular surgery. Second treatment of hemodialysis today and third treatment tomorrow.
--- NOTE | 2020-07-12 13:32 | P.PN ---
Subjective Progress Note Date: 07/12/20 Patient admitted with abdominal pain or leg area currently dialyzed [address] angiogram of the aorta and renals results pending, patient doing actually quite well pain and discomfort is diminished BUN/creatinine creatinine have already improved weaning on vascular surgery recommendations we'll continue to follow Objective - Vital Signs Vital signs: Vital Signs Temp 98.2 F 07/12/20 12:00 Pulse 59 L 07/12/20 12:00 Resp 16 07/12/20 12:00 BP 162/80 07/12/20 12:00 Pulse Ox 92 L 07/12/20 09:40 Intake & Output 07/11/20 07/12/20 07/12/20 18:59 06:59 18:59 Intake Total 360 240 Output Total 0 0 0 Balance 360 0 240 Weight 71.6 kg Intake: Oral 360 240 Output: Urine 0 0 0 Hemodialysis 0 Other: Voiding Method Indwelling Catheter Indwelling Catheter Indwelling Catheter # Bowel Movements 1 - Exam General: [Patient awake, alert and oriented times 3. Patient in no acute distress.] HEENT: [PERRL. EOMI. No pharyngeal erythema or exudate.] Neck: [No adenopathy.] Cardiac: [Heart regular in rate and rhythm. No S3. No S4. No clicks, rubs. No murmur.] Lungs: [Clear to auscultation bilaterally.] Abdomen: [No mass. No organomegaly. Bowel sounds presnt and normoactive in all 4 quadrants.] Extremes: [No edema no cyanosis no claudication normal pulses] : Normal male genitalia Patient has significant bulge in the right lower quadrant suggesting inguinal hernia on the right Musculoskeletal: [No joint erythema, edema or tenderness.] Skin: [No rash.] Neurologic: [No lateralizing deficits. CN II - XII grossly intact.] Lymphatic: [No adenopathy.] - Labs CBC & Chem 7: 07/11/20 06:44 07/11/20 06:44 Assessment and Plan (1) Mechanical back pain Current Visit: No Status: Acute Code(s): M54.9 - DORSALGIA, UNSPECIFIED SNOMED Code(s): 249092015 (2) Degenerative disc disease, lumbar Current Visit: No Status: Acute Code(s): M51.36 - OTHER INTERVERTEBRAL DISC DEGENERATION, LUMBAR REGION SNOMED Code(s): 26096245 (3) Urinary tract infection Current Visit: No Status: Acute Code(s): N39.0 - URINARY TRACT INFECTION, SITE NOT SPECIFIED SNOMED Code(s): 27670978 (4) Renal failure Current Visit: Yes Status: Acute Code(s): N19 - UNSPECIFIED KIDNEY FAILURE SNOMED Code(s): 33729937 (5) Inguinal hernia Current Visit: Yes Status: Acute Code(s): K40.90 - UNIL INGUINAL HERNIA, W/O OBST OR GANGR, NOT SPCF RECUR SNOMED Code(s): 838467387 (6) Renal artery occlusion Current Visit: Yes Status: Acute Code(s): N28.0 - ISCHEMIA AND INFARCTION OF KIDNEY SNOMED Code(s): 757648075 (7) Endoleak of aortic graft Current Visit: Yes Status: Acute Code(s): T82.330A - LEAKAGE OF AORTIC (BIFURCATION) GRAFT (REPLACEMENT), INIT SNOMED Code(s): 425487861425646 Plan: currently resting comfortably in bed Possible endoleak aortic aneurysm repair Hypertension by history well controlled Nephrology consult, patient dialyzed twice Urology consult urology evaluated patient and determined that there is no bladder mass Vascular surgery consult for possible dialysis access Time with Patient: Greater than 30
--- NOTE | 2020-07-12 13:47 | P.PN ---
Subjective Progress Note Date: 07/12/20 Patient was seen and examined sitting up in the recliner at the bedside. Patient had undergone CT angiogram abdomen and pelvis. Results are pending. Patient underwent a temporary femoral dialysis catheter yesterday with Dr. Dong. Patient then had hemodialysis yesterday and is scheduled to have it a gain today. The patient is otherwise without any complaints. He had no acute changes through the night. Denies any shortness of breath, chest pain, or back pain. Renal arterial study was suboptimal due to overlying gas pattern. Objective - Vital Signs Vital signs: Vital Signs Temp 98.2 F 07/12/20 12:00 Pulse 59 L 07/12/20 12:00 Resp 16 07/12/20 12:00 BP 162/80 07/12/20 12:00 Pulse Ox 92 L 07/12/20 09:40 Intake & Output 07/11/20 07/12/20 07/12/20 18:59 06:59 18:59 Intake Total 360 240 Output Total 0 0 0 Balance 360 0 240 Weight 71.6 kg Intake: Oral 360 240 Output: Urine 0 0 0 Hemodialysis 0 Other: Voiding Method Indwelling Catheter Indwelling Catheter Indwelling Catheter # Bowel Movements 1 - Exam General appearance: The patient is alert, oriented, in no acute distress. HET: Head is normocephalic and atraumatic. Pupils are equal and reactive. Neck: Supple. Heart: S1 S2. Regular rate and rhythm. Lungs: No crackles or wheezes are heard. Abdomen: Soft, nontender, nondistended with bowel sounds. Extremities: Normal skin color and turgor. No cyanosis, rash, ulceration, clubbing, or edema. Neurological: No focal deficits. Strength and sensation are grossly intact. - Labs CBC & Chem 7: 07/11/20 06:44 07/11/20 06:44 Assessment and Plan Assessment: 1. Abdominal aortic aneurysm with endovascular aortic repair with graft and bilateral renal artery stents 2. Acute kidney injury, oliguric, bilateral atrophic kidneys, on hemodialysis 3. Hypertension Plan: A CT angiogram of abdomen and pelvis was ordered to further assess renal arteries, results are pending. The patient underwent a temporary dialysis catheter placement yesterday. Dialysis recommendations per nephrology. Further recommendations to follow. The above dictated assessment and findings were discussed with Dr. Mix. The impression and plan of care have been directed as dictated.
--- NOTE | 2020-07-12 17:50 | CT ---
EXAM: CT ANGIOGRAPHY OF THE ABDOMEN, PELVIS DATE OF SERVICE: 07/12/2020 INDICATION: Previous abdominal aortic aneurysm repair. Acute renal failure, currently on dialysis. COMPARISON: CT abdomen pelvis 07/10/2020 TECHNIQUE: Multiple thin slice sub-millimeter images were obtained through the abdomen, pelvis, and l ower extremities after administration of contrast. Patient was given Optiray 350, 125 cc intravenous ly. 3-D reconstructed images and maximum intensity projection images were obtained of the abdomen, p miki, and lower extremities. FINDINGS: CTA Abdomen and pelvis: There is aortobiiliac stent graft originating at the diaphragmatic crura. Trevor ateral renal artery stents are also seen, with redemonstrated oblique angle on the left. There is red emonstrated infrarenal abdominal aortic aneurysm sac measuring up to 7.5 cm, unchanged from 07/10/2020 comparison and decreased from 10/25/2018 CT comparison when it measured 7.9 cm. There is mildly hete rogenous density within the aneurysm sac which does not appear significantly changed. No evidence of intramural hematoma on precontrast imaging. No evidence of endoleak. The celiac, SMA, and bilateral r enal arteries are patent. The renal arteries are diminutive. The FE is not visualized. The iliac ve ssels are normal in morphology. VISCERA: Small bilateral pleural effusions. Status post cholecystectomy. No adrenal nodule. Redemonst rated left renal atrophy. No evidence of bowel obstruction. There is mild dilatation of the duodenum to the level of the abdominal aortic aneurysm sac, however without gastric distention to suggest sign ificant obstruction. Mix catheter decompressing the urinary bladder. There is mild mesenteric hazin ess. There is a large fat-containing right inguinal hernia measuring up to 7.5 x 5.0 cm, with fluid w ithin the dependent portion. No pneumoperitoneum. No lymphadenopathy. Decreased osseous mineralizatio n. Scrotal edema. Mild anasarca. IMPRESSIONS: 1. Abdominal aortic aneurysm with aortobiiliac stenting. Infrarenal abdominal aortic aneurysm sac me asures up to 7.5 cm, unchanged from 07/10/2020 CT comparison, and decreased from 10/25/2018 comparison when it measured 7.9 cm. 2. Small bilateral pleural effusions. 3. Large fat and fluid containing right inguinal hernia.
[2020-07-13 06:22] LABS: Calcium 7.6 mg/dL (8.4-10.2); Potassium 4.5 mmol/L (3.5-5.1)
[2020-07-13 06:31] LABS: Basophils % (A) 0 %; Eosinophils # (A) 0.2 k/uL (0-0.7); Eosinophils % (A) 2 %; HCT 32.5 % (39.0-53.0); HGB 10.6 gm/dL (13.0-17.5); Lymphocytes # (A) 1.6 k/uL (1.0-4.8); Lymphocytes % (A) 21 %; MCH 31.3 pg (25.0-35.0); MCHC 32.6 g/dL (31.0-37.0); Mean Platelet Volume 7.9; Monocytes # (A) 0.7 k/uL (0-1.0); Monocytes % (A) 9 %; Neutrophils % (A) 64 %; RBC 3.38 m/uL (4.30-5.90); RDW 14.1 % (11.5-15.5); WBC 7.8 k/uL (3.8-10.6)
[2020-07-13 06:55] LABS: Platelet Count 98 k/uL (150-450)
[2020-07-13] MEDS: PANTOPRAZOLE 40 MG TABLET PO SCH (07:22)
[2020-07-13] MEDS ORDERED: HEPARIN SODIUM,PORCINE 5,000 UNIT/ML 1 ML VIAL ONE (11:05)
--- NOTE | 2020-07-13 12:30 | P.PN ---
Subjective Progress Note Date: 07/13/20 Principal diagnosis: Acute renal injury, possible renal artery stenosis Patient admitted with abdominal, acute renal injury. currently dialyzed [address] angiogram of the aorta and renals results pending, patient doing actually quite well pain and discomfort is diminished BUN/creatinine creatinine have already improved waiting on vascular surgery recommendations we'll continue to follow Objective - Vital Signs Vital signs: Vital Signs Temp 98.2 F 07/13/20 08:00 Pulse 70 07/13/20 08:00 Resp 16 07/13/20 08:00 BP 169/82 07/13/20 08:00 Pulse Ox 90 L 07/13/20 08:00 Intake & Output 07/12/20 07/13/20 07/13/20 18:59 06:59 18:59 Intake Total 960 240 Output Total 500 Balance 460 240 Weight 70 kg Intake: Oral 960 240 Output: Urine 0 Hemodialysis 500 Other: Voiding Method Indwelling Catheter Indwelling Catheter Indwelling Catheter # Voids 1 # Bowel Movements 1 1 - Exam General: [Patient awake, alert and oriented times 3. Patient in no acute distress.] HEENT: [PERRL. EOMI. No pharyngeal erythema or exudate.] Neck: [No adenopathy.] Cardiac: [Heart regular in rate and rhythm. No S3. No S4. No clicks, rubs. No murmur.] Lungs: [Clear to auscultation bilaterally.] Abdomen: [No mass. No organomegaly. Bowel sounds presnt and normoactive in all 4 quadrants.] Extremes: [No edema no cyanosis no claudication normal pulses] : Normal male genitalia Patient has significant bulge in the right lower quadrant suggesting inguinal hernia on the right Musculoskeletal: [No joint erythema, edema or tenderness.] Skin: [No rash.] Neurologic: [No lateralizing deficits. CN II - XII grossly intact.] Lymphatic: [No adenopathy.] - Labs CBC & Chem 7: 07/13/20 05:49 07/13/20 05:49 Labs: Abnormal Lab Results - Last 24 Hours (Table) 07/13/20 07/13/20 Range/Units 05:49 05:49 RBC 3.38 L (4.30-5.90) m/uL Hgb 10.6 L (13.0-17.5) gm/dL Hct 32.5 L (39.0-53.0) % Plt Count 98 L (150-450) k/uL Sodium 131 L (137-145) mmol/L Carbon Dioxide 18 L (22-30) mmol/L BUN 48 H (9-20) mg/dL Creatinine 8.79 H* (0.66-1.25) mg/dL Calcium 7.6 L (8.4-10.2) mg/dL Assessment and Plan (1) Mechanical back pain Current Visit: No Status: Acute Code(s): M54.9 - DORSALGIA, UNSPECIFIED SNOMED Code(s): 547430294 (2) Degenerative disc disease, lumbar Current Visit: No Status: Acute Code(s): M51.36 - OTHER INTERVERTEBRAL DISC DEGENERATION, LUMBAR REGION SNOMED Code(s): 77572790 (3) Urinary tract infection Current Visit: No Status: Acute Code(s): N39.0 - URINARY TRACT INFECTION, SITE NOT SPECIFIED SNOMED Code(s): 29905055 (4) Renal failure Current Visit: Yes Status: Acute Code(s): N19 - UNSPECIFIED KIDNEY FAILURE SNOMED Code(s): 87615016 (5) Inguinal hernia Current Visit: Yes Status: Acute Code(s): K40.90 - UNIL INGUINAL HERNIA, W/O OBST OR GANGR, NOT SPCF RECUR SNOMED Code(s): 563671965 (6) Renal artery occlusion Current Visit: Yes Status: Acute Code(s): N28.0 - ISCHEMIA AND INFARCTION OF KIDNEY SNOMED Code(s): 629285576 (7) Endoleak of aortic graft Current Visit: Yes Status: Acute Code(s): T82.330A - LEAKAGE OF AORTIC (BIFURCATION) GRAFT (REPLACEMENT), INIT SNOMED Code(s): 787561983861120 Plan: currently resting comfortably in bed Possible endoleak aortic aneurysm repair less likely Hypertension by history well controlled Nephrology consult, patient dialyzed twice Urology consult urology evaluated patient and determined that there is no bladder mass Vascular surgery evaluation pending Time with Patient: Greater than 30
--- NOTE | 2020-07-13 12:43 | P.PN ---
Subjective Progress Note Date: 07/13/20 Follow-up for acute kidney injury. Very minimal urine output. No nausea vomiting diarrhea. Just finished dialysis. Objective - Vital Signs Vital signs: Vital Signs Temp 98.2 F 07/13/20 08:00 Pulse 70 07/13/20 08:00 Resp 16 07/13/20 08:00 BP 169/82 07/13/20 08:00 Pulse Ox 90 L 07/13/20 08:00 Intake & Output 07/12/20 07/13/20 07/13/20 18:59 06:59 18:59 Intake Total 960 240 Output Total 500 Balance 460 240 Weight 70 kg Intake: Oral 960 240 Output: Urine 0 Hemodialysis 500 Other: Voiding Method Indwelling Catheter Indwelling Catheter Indwelling Catheter # Voids 1 # Bowel Movements 1 1 - Exam No acute distress S1-S2 heard Lungs clear Abdomen soft Left groin Tuan No edema - Labs CBC & Chem 7: 07/13/20 05:49 07/13/20 05:49 Labs: Abnormal Lab Results - Last 24 Hours (Table) 07/13/20 07/13/20 Range/Units 05:49 05:49 RBC 3.38 L (4.30-5.90) m/uL Hgb 10.6 L (13.0-17.5) gm/dL Hct 32.5 L (39.0-53.0) % Plt Count 98 L (150-450) k/uL Sodium 131 L (137-145) mmol/L Carbon Dioxide 18 L (22-30) mmol/L BUN 48 H (9-20) mg/dL Creatinine 8.79 H* (0.66-1.25) mg/dL Calcium 7.6 L (8.4-10.2) mg/dL Assessment and Plan Assessment: #1 oliguric acute kidney injury suspect worsening CK D with history of bilateral renal artery stents and small kidneys. Rule out vasculitis. No renal artery stenosis on CTA. #2 chronic kidney disease stage III with a baseline creatinine of 1.9 MG per DL in December 2018. #3 mild hyperkalemia improved with dialysis #4 metabolic acidosis secondary to [facility] #5 abdominal aortic aneurysm status post stent #6 hypertension with chronic kidney disease Plan: #1 hemodialysis [id number] for 3 days. Next treatment on Wednesday #2 check vasculitis serology and urine analysis. #3 with shrunken kidneys doubt revascularization helps. #4 avoid nephrotoxic agents and hypotensive episodes
[2020-07-13] MEDS: ONDANSETRON 4 MG/2 ML VIAL IVP PRN (12:50)
[2020-07-13] MEDS: METOPROLOL TARTRATE 50 MG TAB PO SCH ×2 (12:51→20:46)
[2020-07-13] MEDS: hydrALAZINE HCL 25 MG TAB PO SCH ×3 (12:51→20:46)
[2020-07-13] MEDS: ATORVASTATIN 80 MG TAB PO SCH (12:51)
[2020-07-13] MEDS: SODIUM BICARBONATE TAB 650 MG TAB PO SCH ×3 (12:51→20:46)
--- NOTE | 2020-07-13 14:41 | P.PN ---
Subjective Progress Note Date: 07/13/20 Principal diagnosis: Acute renal failure, history of chimney EVAR with bilateral renal stents Patient seen and examined. Patient states pain in back has resolved. Urine output increasing slightly. Patient has had HD without issues and labs are improving. Denies any fevers, chills, nausea, vomiting, chest pain or shortness of breath. Objective - Vital Signs Vital signs: Vital Signs Temp 98.5 F 07/13/20 13:02 Pulse 77 07/13/20 13:02 Resp 16 07/13/20 13:02 BP 162/81 07/13/20 13:02 Pulse Ox 90 L 07/13/20 08:00 Intake & Output 07/12/20 07/13/20 07/13/20 18:59 06:59 18:59 Intake Total 960 360 Output Total 500 500 Balance 460 -140 Weight 70 kg Intake: Oral 960 360 Output: Urine 0 Hemodialysis 500 500 Other: Voiding Method Indwelling Catheter Indwelling Catheter Indwelling Catheter # Voids 1 # Bowel Movements 1 1 - Constitutional General appearance: Present: cooperative - EENT Eyes: Present: PERRLA - Respiratory Respiratory: bilateral: CTA - Cardiovascular Rhythm: regular - Gastrointestinal General gastrointestinal: Present: normal bowel sounds. Absent: decreased bowel sounds, distended - Neurologic Neurologic: Present: CNII-XII intact - Psychiatric Psychiatric: Present: A&O x's 3, appropriate affect, intact judgment & insight - Labs CBC & Chem 7: 07/13/20 05:49 07/13/20 05:49 Labs: Abnormal Lab Results - Last 24 Hours (Table) 07/13/20 07/13/20 Range/Units 05:49 05:49 RBC 3.38 L (4.30-5.90) m/uL Hgb 10.6 L (13.0-17.5) gm/dL Hct 32.5 L (39.0-53.0) % Plt Count 98 L (150-450) k/uL Sodium 131 L (137-145) mmol/L Carbon Dioxide 18 L (22-30) mmol/L BUN 48 H (9-20) mg/dL Creatinine 8.79 H* (0.66-1.25) mg/dL Calcium 7.6 L (8.4-10.2) mg/dL - Imaging and Cardiology CT scan - abdomen: report reviewed, image reviewed Assessment and Plan Assessment: 1. AAA with history of ChEVAR with bilateral renal artery stents 2. EVANGELIST with bilateral atrophic kidneys on HD 3. HTN 4. Hematuria Plan: Reviewed CTA- renal flow noted but diminutive arteries. There may be some movement in the renal stents with decreased flow to the renal arteries which would explain the acute renal failure. I would recommend a catheter directed angiogram to look at the renal stents in more detail and see if angioplasty or re-stenting is needed. Based on the history and timeframe of onset of pain and decreased urination as well as the appearance of the kidneys, there may be irreversible damage and patient may be on permanent dialysis in the future. This was discussed with him and he understands fully. I would like to schedule an aortogram with selective renal artery angiogram in the next couple of days if ok with nephrology and medicine.
[2020-07-13] MEDS: SODIUM CHLORIDE 0.9% 1,000 ML IV SCH (17:45)
[2020-07-13 22:42] LABS: Glucose,Whole Blood 114 mg/dL (75-99)
[2020-07-14] MEDS: PANTOPRAZOLE 40 MG TABLET PO SCH (05:59)
[2020-07-14 06:43] LABS: HCT 29.8 % (39.0-53.0); HGB 9.7 gm/dL (13.0-17.5); MCH 31.1 pg (25.0-35.0); MCHC 32.7 g/dL (31.0-37.0); MCV 95.2 fL (80.0-100.0); Mean Platelet Volume 8.4; Platelet Count 69 k/uL (150-450); RBC 3.13 m/uL (4.30-5.90); RDW 14.1 % (11.5-15.5); WBC 7.4 k/uL (3.8-10.6)
[2020-07-14 06:55] LABS: Calcium 7.6 mg/dL (8.4-10.2); Potassium 4.4 mmol/L (3.5-5.1)
[2020-07-14] MEDS ORDERED: IV FLUID CONTINUATION 1,000 ML IV ONE (08:45)
[2020-07-14] MEDS ORDERED: LIDOCAINE 1% INJ 10MG/ML (20 ML MDV) SQ ONE (09:05)
[2020-07-14] MEDS ORDERED: fentaNYL (PF) 50 MCG/ML 2 ML AMP IV ONE ×2 (09:09)
[2020-07-14] MEDS ORDERED: MIDAZOLAM 2 MG/2 ML VIAL IV ONE ×2 (09:09)
[2020-07-14] MEDS ORDERED: IOPAMIDOL-250 100ML BTL INTRAARTER ONE ×2 (09:30)
--- NOTE | 2020-07-14 10:11 | P.OP ---
Date of Procedure: 07/14/20 Description of Procedure: Preoperative diagnosis: Acute renal failure, possible renal stent occlusion Postop diagnosis: Acute renal failure, bilateral renal artery stent occlusions Procedure: Aortogram via left brachial artery access under ultrasound guidance Surgeon: Emilie Anesthesia: Moderate sedation times 35 minutes Estimated blood loss: 5 mL Complications: None Condition: Stable Findings: Aorta: Aorta is patent with good placement of the endovascular graft without any signs of endoleak. Bilateral renal artery stents are occluded with no evidence of contrast visualization within the renal arteries bilaterally. Iliacs: Bilateral iliac stents are patent without any signs of endoleak Operative narrative: After written informed consent was obtained the patient all risks benefits competitions were described the patient is brought to the [facility] Director and laid in a supine position. The area of the left arm was prepped and draped in the usual sterile fashion. Local anesthesia with moderate sedation was performed with continuous pulse ox monitoring and EKG monitoring. Utilizing ultrasound the left brachial artery was visualized and shown to be patent without any significant plaque. Utilizing a multipurpose needle under ultrasound guidance the artery was accessed. Guidewire was placed followed by 5-Maldivian sheath. 035 Glidewire was then placed into the descending thoracic aorta followed by pigtail catheter which was placed above the previous aortic stent. Angiogram was then obtained of the aorta and multiple views of the renal artery stents. 035 Glidewire was then utilized and attempt was placed to get into the renal artery stents with an angled glide catheter which were unsuccessful and therefore procedure was ended. All guidewires, catheters and sheaths were removed and pressure was placed for hemostasis. Patient tolerated procedure well was sent to PACU for recovery
--- NOTE | 2020-07-14 10:16 | P.PN ---
Progress Note - Text Progress Note Date: 07/14/20 Due to his bilateral renal artery stent occlusions the likelihood of his renal function improving is low and therefore we will discuss with nephrology and internal medicine for timing of tunneled hemodialysis catheter placement which we will schedule him for on Wednesday. I discussed this with him in full detail as well as discussed the need for a fistula in the future for his continued hemodialysis which is likely.
--- NOTE | 2020-07-14 10:53 | P.PN ---
Subjective Progress Note Date: 07/14/20 Follow-up for acute kidney injury. Very minimal urine output. No nausea vomiting diarrhea. This morning had an angiogram to visualize renal artery stent patency, but unable to pass the guidewire. Objective - Vital Signs Vital signs: Vital Signs Temp 98.0 F 07/14/20 08:00 Pulse 67 07/14/20 08:00 Resp 20 07/14/20 08:00 BP 164/75 07/14/20 08:00 Pulse Ox 95 07/14/20 08:00 Intake & Output 07/13/20 07/14/20 07/14/20 18:59 06:59 18:59 Intake Total 360 50 Output Total 500 0 0 Balance -140 0 50 Weight 74.3 kg Intake: IV 50 Oral 360 Output: Urine 0 0 Hemodialysis 500 Other: Voiding Method Indwelling Catheter Indwelling Catheter Indwelling Catheter # Voids 0 0 # Bowel Movements 1 - Exam No acute distress S1-S2 heard Lungs clear Abdomen soft Left groin Tuan No edema - Labs CBC & Chem 7: 07/14/20 06:17 07/14/20 06:17 Labs: Abnormal Lab Results - Last 24 Hours (Table) 07/13/20 07/14/20 07/14/20 Range/Units 22:41 06:17 06:17 RBC 3.13 L (4.30-5.90) m/uL Hgb 9.7 L (13.0-17.5) gm/dL Hct 29.8 L (39.0-53.0) % Plt Count 69 L (150-450) k/uL Sodium 134 L (137-145) mmol/L Carbon Dioxide 21 L (22-30) mmol/L BUN 40 H (9-20) mg/dL Creatinine 8.17 H* (0.66-1.25) mg/dL POC Glucose (mg/dL) 114 H (75-99) mg/dL Calcium 7.6 L (8.4-10.2) mg/dL Assessment and Plan Assessment: #1 oliguric acute kidney injury suspect worsening CK D with history of bilateral renal artery stents and small kidneys. Rule out vasculitis. No renal artery stenosis on CTA, but unable to pass the guidewire with angiogram. #2 chronic kidney disease stage III with a baseline creatinine of 1.9 MG per DL in December 2018. #3 mild hyperkalemia improved with dialysis #4 metabolic acidosis secondary to EVANGELIST #5 abdominal aortic aneurysm status post stent #6 hypertension with chronic kidney disease Plan: #1 hemodialysis [id number] for 3 days. Next treatment on Wednesday #2 vasculitis serology pending, #3 with shrunken kidneys doubt revascularization helps. #4 avoid nephrotoxic agents and hypotensive episodes
[2020-07-14] MEDS: ATORVASTATIN 80 MG TAB PO SCH (11:23)
[2020-07-14] MEDS: SODIUM BICARBONATE TAB 650 MG TAB PO SCH ×3 (11:23→20:09)
[2020-07-14] MEDS: hydrALAZINE HCL 25 MG TAB PO SCH ×3 (11:24→20:09)
[2020-07-14] MEDS: METOPROLOL TARTRATE 50 MG TAB PO SCH ×2 (11:24→20:09)
--- NOTE | 2020-07-14 12:08 | P.PN ---
Subjective Progress Note Date: 07/14/20 Principal diagnosis: Acute renal injury, possible renal artery occlusion Patient admitted with abdominal, acute renal injury. currently dialyzed [address] angiogram of the aorta and renals results pending, patient doing actually quite well pain and discomfort is diminished BUN/creatinine creatinine have already improved waiting on vascular surgery recommendations we'll continue to follow 07/14/2020 This patient underwent arteriogram of the aorta and iliacs and renal arteries t his morning per vascular surgery, apparently both renal artery angioplasty stent sites are occluded and the possibility of revascularization is unlikely it appears this patient is going to be on dialysis for the remainder of his life Dr. Phan made patient aware of this he will be undergoing procedure for dialysis access within the next 2-3 days Objective - Vital Signs Vital signs: Vital Signs Temp 98.0 F 07/14/20 08:00 Pulse 67 07/14/20 08:00 Resp 18 07/14/20 11:52 BP 172/72 07/14/20 11:52 Pulse Ox 90 L 07/14/20 11:52 Intake & Output 07/13/20 07/14/20 07/14/20 18:59 06:59 18:59 Intake Total 360 50 Output Total 500 0 0 Balance -140 0 50 Weight 74.3 kg Intake: IV 50 Oral 360 Output: Urine 0 0 Hemodialysis 500 Other: Voiding Method Indwelling Catheter Indwelling Catheter Indwelling Catheter # Voids 0 0 # Bowel Movements 1 - Exam General: [Patient awake, alert and oriented times 3. Patient in no acute distress.] HEENT: [PERRL. EOMI. No pharyngeal erythema or exudate.] Neck: [No adenopathy.] Cardiac: [Heart regular in rate and rhythm. No S3. No S4. No clicks, rubs. No murmur.] Lungs: [Clear to auscultation bilaterally.] Abdomen: [No mass. No organomegaly. Bowel sounds presnt and normoactive in all 4 quadrants.] Extremes: [No edema no cyanosis no claudication normal pulses] : Normal male genitalia Patient has significant bulge in the right lower quadrant suggesting inguinal hernia on the right Musculoskeletal: [No joint erythema, edema or tenderness.] Skin: [No rash.] Neurologic: [No lateralizing deficits. CN II - XII grossly intact.] Lymphatic: [No adenopathy.] - Labs CBC & Chem 7: 07/14/20 06:17 07/14/20 06:17 Labs: Abnormal Lab Results - Last 24 Hours (Table) 07/13/20 07/14/20 07/14/20 Range/Units 22:41 06:17 06:17 RBC 3.13 L (4.30-5.90) m/uL Hgb 9.7 L (13.0-17.5) gm/dL Hct 29.8 L (39.0-53.0) % Plt Count 69 L (150-450) k/uL Sodium 134 L (137-145) mmol/L Carbon Dioxide 21 L (22-30) mmol/L BUN 40 H (9-20) mg/dL Creatinine 8.17 H* (0.66-1.25) mg/dL POC Glucose (mg/dL) 114 H (75-99) mg/dL Calcium 7.6 L (8.4-10.2) mg/dL Assessment and Plan (1) Mechanical back pain Current Visit: No Status: Acute Code(s): M54.9 - DORSALGIA, UNSPECIFIED SNOMED Code(s): 708865782 (2) Degenerative disc disease, lumbar Current Visit: No Status: Acute Code(s): M51.36 - OTHER INTERVERTEBRAL DISC DEGENERATION, LUMBAR REGION SNOMED Code(s): 67312959 (3) Urinary tract infection Current Visit: No Status: Acute Code(s): N39.0 - URINARY TRACT INFECTION, SITE NOT SPECIFIED SNOMED Code(s): 41449409 (4) Renal failure Current Visit: Yes Status: Acute Code(s): N19 - UNSPECIFIED KIDNEY FAILURE SNOMED Code(s): 05516088 (5) Inguinal hernia Current Visit: Yes Status: Acute Code(s): K40.90 - UNIL INGUINAL HERNIA, W/O OBST OR GANGR, NOT SPCF RECUR SNOMED Code(s): 405833029 (6) Renal artery occlusion Narrative/Plan: Patient to undergo dialysis access placement Bilateral renal artery occlusion noted on angiogram this morning Current Visit: Yes Status: Acute Code(s): N28.0 - ISCHEMIA AND INFARCTION OF KIDNEY SNOMED Code(s): 220969164 (7) Endoleak of aortic graft Current Visit: Yes Status: Acute Code(s): T82.330A - LEAKAGE OF AORTIC (BIFURCATION) GRAFT (REPLACEMENT), INIT SNOMED Code(s): 484708769877059 Plan: currently resting comfortably in bed Hypertension by history well controlled Nephrology consult, patient dialyzed twice Urology consult urology evaluated patient and determined that there is no bladder mass Vascular surgery performed angioplasty of renal arteries which were noted to be completely occluded bilaterally Time with Patient: Greater than 30
[2020-07-15] MEDS: PANTOPRAZOLE 40 MG TABLET PO SCH (06:31)
[2020-07-15] MEDS: ONDANSETRON 4 MG/2 ML VIAL IVP PRN (08:39)
[2020-07-15 11:18] LABS: Anti-DNA, DS unit <1.0 IU/mL; DNA Double-Stranded NEGATIVE (NEGATIVE)
[2020-07-15 11:34] LABS: Protein, Total 5.1 g/dL (6.2-8.2)
[2020-07-15 13:07] LABS: Albumin 2.46 g/dL (3.80-4.90); Gamma Globulin 0.82 g/dL (0.70-1.50)
--- NOTE | 2020-07-15 13:22 | IR ---
EXAMINATION TYPE: IR angio abdominal w runoff DATE OF EXAM: 07/14/2020 CLINICAL HISTORY: Renal failure. Renal artery stenosis. TECHNIQUE: Fluoroscopy. COMPARISON: CTA 2 days earlier. FINDINGS: Fluoroscopic guidance was provided during abdominal angiogram with treatment procedure per formed by Dr. Phan. A total of 12.6 seconds of fluoroscopic time was utilized during the procedur e and several cine runs are acquired. Images acquired show upper extremity access with subsequent abd ominal angiogram through stent graft. Please refer to procedure note for further details. IMPRESSION: As Above.
--- NOTE | 2020-07-15 13:34 | P.PN ---
Subjective Progress Note Date: 07/15/20 Patient was seen and examined sitting up at the bedside. Patient states he's doing well. No acute changes through the night. Patient has bilateral renal artery occlusion, yesterday Dr. Phan did an angiogram with the attempt for revascularization however the stents were occluded and was on successful with getting into the renal artery stents therefore the procedure was ended. The patient has a temporary femoral dialysis catheter, and has had 2 prior sessions with hemodialysis. He is scheduled again today. Objective - Vital Signs Vital signs: Vital Signs Temp 98.1 F 07/15/20 12:00 Pulse 67 07/14/20 08:00 Resp 18 07/15/20 12:00 BP 180/73 07/15/20 12:00 Pulse Ox 91 L 07/15/20 12:00 Intake & Output 07/14/20 07/15/20 07/15/20 18:59 06:59 18:59 Intake Total 50 240 Output Total 0 0 Balance 50 240 Weight 71 kg Intake: IV 50 Oral 240 Output: Urine 0 0 Other: Voiding Method Indwelling Catheter # Voids 0 0 - Exam General appearance: The patient is alert, oriented, in no acute distress. HET: Head is normocephalic and atraumatic. Pupils are equal and reactive. Neck: Supple. Heart: S1 S2. Regular rate and rhythm. Lungs: No crackles or wheezes are heard. Abdomen: Soft, nontender, nondistended with bowel sounds. Extremities: Normal skin color and turgor. No cyanosis, rash, ulceration, clubbing, or edema. Palpable bilateral radial pulses. Neurological: No focal deficits. Strength and sensation are grossly intact. - Labs CBC & Chem 7: 07/14/20 06:17 07/14/20 06:17 Labs: Abnormal Lab Results - Last 24 Hours (Table) 07/14/20 07/14/20 Range/Units 06:17 06:17 Total Protein (PEP) 5.1 L (6.2-8.2) g/dL Albumin (PEP) 2.46 L (3.80-4.90) g/dL [id number] 0.43 H (0.10-0.40) g/dL DOE Screen POSITIVE H (NEGATIVE) Free [place] LC, Quant 13.80 H (0.33-1.94) mg/dL Free [place] LC, Quant 13.60 H (0.57-2.63) mg/dL Assessment and Plan Assessment: 1. Acute renal failure 2. Bilateral renal artery stent occlusions 3. Abdominal aortic aneurysm with endovascular aortic repair with graft and bilateral renal artery stents 4. Hypertension Plan: Patient is receiving hemodialysis today Plan is for patient to have a tunneled dialysis catheter placed tomorrow Continue with hemodialysis recommendations per nephrology The above dictated assessment and findings were discussed with Dr. Phan. The impression and plan of care have been directed as dictated.
[2020-07-15] MEDS: SODIUM BICARBONATE TAB 650 MG TAB PO SCH ×3 (14:18→20:43)
[2020-07-15] MEDS: hydrALAZINE HCL 25 MG TAB PO SCH ×3 (14:18→20:43)
[2020-07-15] MEDS: HYDROcodone/APAP 5-325MG 1 EACH TAB PO PRN (14:26)
[2020-07-15] MEDS: ATORVASTATIN 80 MG TAB PO SCH (14:26)
[2020-07-15] MEDS: METOPROLOL TARTRATE 50 MG TAB PO SCH ×2 (14:26→20:43)
[2020-07-15 14:39] LABS: Anti-Glomerular Basement Memb 3 UNITS (0-20)
[2020-07-15 15:11] LABS: C-ANCA <1:20 Titer (<1:20)
--- NOTE | 2020-07-15 17:01 | PN ---
PROGRESS NOTE Pt is seen for f/u for progressive renal failure, currently started on hemodialysis. Patient is receiving his hemodialysis treatments. He is comfortable, awake, not in any acute distress. Blood pressure is 138/79, heart rate 70 per minute. He is afebrile. EXAMINATION OF THE HEART: S1 and S2. EXAMINATION OF LUNGS: Bilateral breath sounds are heard. ABDOMEN: Soft, non-tender. Examination of lower extremities shows no evidence of edema. 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 Labs show sodium 134, potassium 4.4, chloride 104. CO2 is 21, BUN 40, creatinine 8.1, hemoglobin 9.7 g/dL. ASSESSMENT: 1. Chronic kidney disease with progressive renal failure, currently maintained on dialysis. Currently end-stage renal disease. We will proceed with PermCath placement. Patient will continue with outpatient dialysis. 2. Chronic kidney disease, stage 3. Previous creatinine 1.9 in December 2018. 3. Metabolic acidosis associated with renal failure. 4. Abdominal aortic aneurysm, status post stent. 5. Hypertension. PLAN: Proceed with PermCath placement. Maintain patient on dialysis and set up outpatient chair time. MMODL / IJN: [id number] / DOT
--- NOTE | 2020-07-15 17:07 | P.PN ---
Subjective Progress Note Date: 07/15/20 Acute renal injury, possible renal artery occlusion Patient admitted with abdominal, acute renal injury. currently dialyzed [address] angiogram of the aorta and renals results pending, patient doing actually quite well pain and discomfort is diminished BUN/creatinine creatinine have already improved waiting on vascular surgery recommendations we'll continue to follow 07/14/2020 This patient underwent arteriogram of the aorta and iliacs and renal arteries this morning per vascular surgery, apparently both renal artery angioplasty stent sites are occluded and the possibility of revascularization is unlikely it appears this patient is going to be on dialysis for the remainder of his life Dr. Phan made patient aware of this he will be undergoing procedure for dialysis access within the next 2-3 days 07/15/2020 receiving hemodialysis today via temporary femoral dialysis catheter. Telemetry sinus rhythm. Denies chest pain, palpitations or increased shortness of breath. Objective - Vital Signs Vital signs: Vital Signs Temp 97.7 F 07/15/20 15:53 Pulse 70 07/15/20 15:42 Resp 18 07/15/20 16:00 BP 161/85 07/15/20 15:53 Pulse Ox 92 L 07/15/20 15:42 Intake & Output 07/14/20 07/15/20 07/15/20 18:59 06:59 18:59 Intake Total 50 240 300 Output Total 0 0 2800 Balance 50 240 -2500 Weight 71 kg Intake: IV 50 Oral 240 Hemodialysis 300 Output: Urine 0 0 Hemodialysis 2800 Other: Voiding Method Indwelling Catheter # Voids 0 0 # Bowel Movements 1 - Exam General: [Patient awake, alert and oriented times 3. Patient in no acute distress.] HEENT: [PERRL. EOMI. No pharyngeal erythema or exudate.] Neck: [No adenopathy.] Cardiac: [Heart regular in rate and rhythm. No S3. No S4. No clicks, rubs. No murmur.] Lungs: [Clear to auscultation bilaterally.] Abdomen: [No mass. No organomegaly. Bowel sounds presnt and normoactive in all 4 quadrants.] Extremes: [No edema no cyanosis no claudication normal pulses] Musculoskeletal: [No joint erythema, edema or tenderness.] Skin: [No rash.] Neurologic: [No lateralizing deficits. CN II - XII grossly intact.] - Labs CBC & Chem 7: 07/14/20 06:17 07/14/20 06:17 Labs: Abnormal Lab Results - Last 24 Hours (Table) 07/14/20 07/14/20 Range/Units 06:17 06:17 Total Protein (PEP) 5.1 L (6.2-8.2) g/dL Albumin (PEP) 2.46 L (3.80-4.90) g/dL [id number] 0.43 H (0.10-0.40) g/dL DOE Screen POSITIVE H (NEGATIVE) Free [place] LC, Quant 13.80 H (0.33-1.94) mg/dL Free [place] LC, Quant 13.60 H (0.57-2.63) mg/dL Assessment and Plan Assessment: (1) Mechanical back pain Current Visit: No Status: Acute Code(s): M54.9 - DORSALGIA, UNSPECIFIED SNOMED Code(s): 236532663 (2) Degenerative disc disease, lumbar Current Visit: No Status: Acute Code(s): M51.36 - OTHER INTERVERTEBRAL DISC DEGENERATION, LUMBAR REGION SNOMED Code(s): 71361058 (3) Urinary tract infection Current Visit: No Status: Acute Code(s): N39.0 - URINARY TRACT INFECTION, SITE NOT SPECIFIED SNOMED Code(s): 07271157 (4) acute Renal failure Current Visit: Yes Status: Acute Code(s): N19 - UNSPECIFIED KIDNEY FAILURE SNOMED Code(s): 14600802 (5) Inguinal hernia Current Visit: Yes Status: Acute Code(s): K40.90 - UNIL INGUINAL HERNIA, W/O OBST OR GANGR, NOT SPCF RECUR SNOMED Code(s): 807208749 (6) bilateral Renal artery occlusion Current Visit: Yes Status: Acute Code(s): N28.0 - ISCHEMIA AND INFARCTION OF KIDNEY SNOMED Code(s): 080837751 (7) Endoleak of aortic graft Current Visit: Yes Status: Acute Code(s): T82.330A - LEAKAGE OF AORTIC (BIFURCATION) GRAFT (REPLACEMENT), INIT SNOMED Code(s): 423193004336654 Plan: Continue current medication regime ,monitoring and symptomatic treatment. Hemodialysis today, scheduled for fistula/dialysis catheter placement tomorrow. Follow closely with both nephrology, vascular surgery. The impression and plan of care has been dictated as directed. : I performed a history and examination of this patient, discussed the same with the dictator. I agree with the dictator's note ,documented as a scribe. Any additional findings or plans will be noted.
[2020-07-16] MEDS: PANTOPRAZOLE 40 MG TABLET PO SCH (06:28)
[2020-07-16] MEDS: SODIUM BICARBONATE TAB 650 MG TAB PO SCH ×3 (08:27→21:09)
[2020-07-16] MEDS: METOPROLOL TARTRATE 50 MG TAB PO SCH ×2 (08:27→21:09)
[2020-07-16] MEDS: hydrALAZINE HCL 25 MG TAB PO SCH ×3 (08:27→21:09)
[2020-07-16] MEDS ORDERED: fentaNYL (PF) 50 MCG/ML 2 ML AMP IV ONE (10:19)
[2020-07-16] MEDS ORDERED: MIDAZOLAM 2 MG/2 ML VIAL IVP ONE (10:19)
[2020-07-16] MEDS ORDERED: LIDOCAINE 1% INJ 10MG/ML (20 ML MDV) SQ ONE ×2 (10:20)
[2020-07-16] MEDS ORDERED: SODIUM CHLORIDE 0.9% 500 ML 500 ML IV ONE (10:35)
--- NOTE | 2020-07-16 11:00 | IR ---
EXAMINATION TYPE: IR cvc insert central tunneled DATE OF EXAM: 07/16/2020 COMPARISON: NONE HISTORY: Fluoroscopy time. Fluoroscopy was provided to the referring clinician.
[2020-07-16 11:57] LABS: ANA Pattern Speckled
[2020-07-16] MEDS: ATORVASTATIN 80 MG TAB PO SCH (12:41)
[2020-07-16 12:53] LABS: HCT 29.4 % (39.0-53.0); HGB 9.6 gm/dL (13.0-17.5); MCH 31.2 pg (25.0-35.0); MCHC 32.7 g/dL (31.0-37.0); MCV 95.4 fL (80.0-100.0); Mean Platelet Volume 10.4; RBC 3.08 m/uL (4.30-5.90); RDW 14.2 % (11.5-15.5); WBC 7.5 k/uL (3.8-10.6)
[2020-07-16 12:58] LABS: Platelet Count 58 k/uL (150-450)
--- NOTE | 2020-07-16 13:13 | P.OP ---
Date of Procedure: 07/16/20 Preoperative Diagnosis: Renal failure Postoperative Diagnosis: Renal failure Procedure(s) Performed: Right tunneled hemodialysis catheter placement via the right internal jugular vein under ultrasound guidance Anesthesia: local, other (Conscious sedation 20 minutes) Surgeon: Anthony Phan Estimated Blood Loss (ml): 5 Pathology: none sent Condition: stable Disposition: floor Indications for Procedure: 74-year-old gentleman with acute renal failure who has both renal stents o ccluded and will be chronic renal failure in need of hemodialysis permanently presents to the [facility] for placement of tunneled catheter. Description of Procedure: After written and informed consent was obtained the patient all risks benefits competitions were described the patient is brought to the [facility] laid in a supine position. The area of the neck and chest were prepped and draped in usual sterile fashion. Local anesthetic was infused overlying the right internal jugular vein which was visualized under ultrasound. Utilizing ultrasound and a multipurpose needle the right internal jugular vein was accessed nonpulsatile blood flow was visualized. Needle was removed and wire was secured to the drapes. Attention was then placed to the chest wall. A palindrome 19 cm catheter was chosen and a small incision was created in the chest after local anesthetic was infused overlying the chest wall. This was performed approximately 2 finger breadths below the angle of the clavicle. Local was infused overlying the tunnel to the previous access site in the right internal jugular vein. Small incisions were created at the access site and the catheter was then tunneled to the neck from the chest wall. Serial dilation was then performed followed by breakaway sheath under direct visualization of fluoroscopy. The catheter was then placed through the breakaway sheath and the sheath was removed. The catheter was assessed for patency samantha and flushed easily and was hep-locked. The incisions were then closed with 4-0 Vicryl suture and the catheter was secured with nylon suture. Patient tolerated procedure well was sent to his room for recovery.
[2020-07-16 13:25] LABS: Calcium 7.6 mg/dL (8.4-10.2); Potassium 4.7 mmol/L (3.5-5.1)
--- NOTE | 2020-07-16 13:35 | XR ---
EXAMINATION TYPE: XR chest 1V portable DATE OF EXAM: 07/16/2020 CLINICAL HISTORY: Line placement for failed dialysis. TECHNIQUE: Single AP portable upright view of the chest is obtained. COMPARISON: Chest x-ray from January 12, 2019. FINDINGS: New large bore right internal jugular dialysis catheter has lead terminating at the caval atrial junction. Back on chronic parenchymal change with new small left pleural effusion. Background mild cardiomegaly. Background patchy bibasilar atelectasis and/or infiltrate. Osseous structures are demineralized. IMPRESSION: New right Internal jugular dialysis catheter has lead terminating at cavoatrial junction. No pneumothorax noted. Mild cardiomegaly and chronic parenchymal change with small left pleural effu norman and patchy bibasilar atelectatic change is present.
--- NOTE | 2020-07-16 13:43 | P.PN ---
Subjective Progress Note Date: 07/16/20 Acute renal injury, possible renal artery occlusion Patient admitted with abdominal, acute renal injury. currently dialyzed [address] angiogram of the aorta and renals results pending, patient doing actually quite well pain and discomfort is diminished BUN/creatinine creatinine have already improved waiting on vascular surgery recommendations we'll continue to follow 07/14/2020 This patient underwent arteriogram of the aorta and iliacs and renal arteries this morning per vascular surgery, apparently both renal artery angioplasty stent sites are occluded and the possibility of revascularization is unlikely it appears this patient is going to be on dialysis for the remainder of his life Dr. Phan made patient aware of this he will be undergoing procedure for dialysis access within the next 2-3 days 07/15/2020 receiving hemodialysis today via temporary femoral dialysis catheter. Telemetry sinus rhythm. Denies chest pain, palpitations or increased shortness of breath. 07/16/2020 hemodialysis yesterday. Scheduled for permacath/tunneled dialysis catheter placement this morning. Afebrile. Denies nausea or vomiting. Labs pending. Objective - Vital Signs Vital signs: Vital Signs Temp 98.1 F 07/16/20 04:00 Pulse 62 07/16/20 04:00 Resp 18 07/16/20 04:00 BP 164/77 07/16/20 04:00 Pulse Ox 93 L 07/16/20 04:00 Intake & Output 07/15/20 07/16/20 07/16/20 18:59 06:59 18:59 Intake Total 540 150 Output Total 2800 0 Balance -2260 0 150 Weight 73.2 kg Intake: IV 150 Oral 240 0 Hemodialysis 300 Output: Urine 0 Hemodialysis 2800 Other: Voiding Method Indwelling Catheter # Bowel Movements 1 - Exam General: alert and oriented times 3, no acute distress.] HEENT: [PERRL. EOMI. No pharyngeal erythema or exudate. Neck: [No adenopathy.] Cardiac: [Heart regular in rate and rhythm. No S3. No S4. No clicks, rubs. No murmur.] Lungs: [Clear to auscultation bilaterally.] Abdomen: [No mass. No organomegaly. Bowel sounds presnt and normoactive in all 4 quadrants.] Extremes: [No edema no cyanosis no claudication normal pulses] Musculoskeletal: [No joint erythema, edema or tenderness.] Skin: [Warm and dry, No rash.] Neurologic: CN II - XII grossly intact, no focal deficits, strength and sensa tion grossly intact.] - Labs CBC & Chem 7: 07/16/20 12:42 07/14/20 06:17 Labs: Abnormal Lab Results - Last 24 Hours (Table) 07/14/20 07/14/20 Range/Units 06:17 06:17 Albumin (PEP) 2.46 L (3.80-4.90) g/dL Luxdl-9-Rfbntthmu 0.43 H (0.10-0.40) g/dL Free [place] LC, Quant 13.80 H (0.33-1.94) mg/dL Free [place] LC, Quant 13.60 H (0.57-2.63) mg/dL Assessment and Plan Assessment: (1) Mechanical back pain Current Visit: No Status: Acute Code(s): M54.9 - DORSALGIA, UNSPECIFIED SNOMED Code(s): 659735992 (2) Degenerative disc disease, lumbar Current Visit: No Status: Acute Code(s): M51.36 - OTHER INTERVERTEBRAL DISC DEGENERATION, LUMBAR REGION SNOMED Code(s): 72904391 (3) Urinary tract infection Current Visit: No Status: Acute Code(s): N39.0 - URINARY TRACT INFECTION, SITE NOT SPECIFIED SNOMED Code(s): 46664729 (4) acute on chronic Renal failure, stage III Current Visit: Yes Status: Acute Code(s): N19 - UNSPECIFIED KIDNEY FAILURE SNOMED Code(s): 13629066 (5) Inguinal hernia Current Visit: Yes Status: Acute Code(s): K40.90 - UNIL INGUINAL HERNIA, W/O OBST OR GANGR, NOT SPCF RECUR SNOMED Code(s): 891144834 (6) bilateral Renal artery occlusion Current Visit: Yes Status: Acute Code(s): N28.0 - ISCHEMIA AND INFARCTION OF KIDNEY SNOMED Code(s): 552897985 (7) Endoleak of aortic graft Current Visit: Yes Status: Acute Code(s): T82.330A - LEAKAGE OF AORTIC (BIFURCATION) GRAFT (REPLACEMENT), INIT SNOMED Code(s): 492267838858086 (8) hypertension Plan: Continue current medication regime ,monitoring and symptomatic treatment.Dialysis catheter placement today. Hemodialysis as per nephrology. Case management arranging dialysis clinic. The impression and plan of care has been dictated as directed. : I performed a history and examination of this patient, discussed the same with the dictator. I agree with the dictator's note ,documented as a scribe. Any additional findings or plans will be noted.
[2020-07-16 14:12] VITALS: BMI 26.0
[2020-07-16] MEDS: HYDROcodone/APAP 5-325MG 1 EACH TAB PO PRN ×2 (14:56→21:09)
--- NOTE | 2020-07-16 15:41 | PN ---
PROGRESS NOTE Patient is seen for followup for end-stage renal disease. He is scheduled to have a PermCath placed today and we are looking for outpatient chair time. The patient states he does not have any significant urine output. PHYSICAL EXAMINATION: On examination, blood pressure was 146/70, heart rate 59 per minute. He is afebrile. EXAMINATION OF THE HEART: S1 and S2. EXAMINATION OF LUNGS: Bilateral breath sounds are heard. ABDOMEN: Soft, non-tender. Examination of lower extremities shows no evidence of edema. 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 LABS: Labs show sodium 132, potassium 4.7, serum creatinine 9.6 mg/dL. ASSESSMENT: 1. Progressive renal failure, currently end-stage renal disease. No significant urine output and small kidneys on ultrasound. Started on hemodialysis. The patient will need to continue with outpatient hemodialysis treatments. 2. Possible recirculation with the femoral catheter. Serum creatinine did not change much from yesterday; in fact, it did increase after dialysis yesterday. 3. Positive DOE with all other serologies negative. UA on 07/08/2020 shows 3+ protein, moderate blood. Patient should be considered for kidney biopsy down the road. His previous creatinine was 1.9 on 01/12/2019. 4. Severe peripheral abdominal aortic aneurysm, status post stent. 5. Hypertension, currently controlled. PLAN: Hemodialysis in a.m. In view of positive DOE and presence of proteinuria and hematuria on urinalysis, consider kidney biopsy. All other serologies are negative. The kidney size is small; therefore I doubt that we will obtain much on the biopsy. MMODL / IJN: [id number] /
[2020-07-17 00:03] VITALS: RESP 18
[2020-07-17] MEDS: HYDROcodone/APAP 5-325MG 1 EACH TAB PO PRN (03:50)
[2020-07-17 06:40] LABS: Calcium 7.8 mg/dL (8.4-10.2); Potassium 5.1 mmol/L (3.5-5.1)
[2020-07-17] MEDS: PANTOPRAZOLE 40 MG TABLET PO SCH (06:48)
[2020-07-17 06:54] LABS: Basophils # (A) 0.1 k/uL (0-0.2); Basophils % (A) 1 %; Eosinophils # (A) 0.2 k/uL (0-0.7); Eosinophils % (A) 2 %; HGB 9.5 gm/dL (13.0-17.5); Lymphocytes # (A) 1.5 k/uL (1.0-4.8); Lymphocytes % (A) 17 %; MCH 30.9 pg (25.0-35.0); MCHC 32.6 g/dL (31.0-37.0); Mean Platelet Volume 8.9; Monocytes # (A) 0.5 k/uL (0-1.0); Monocytes % (A) 6 %; Neutrophils # (A) 6.3 k/uL (1.3-7.7); Neutrophils % (A) 72 %; RBC 3.06 m/uL (4.30-5.90); WBC 8.7 k/uL (3.8-10.6)
[2020-07-17 07:14] LABS: Platelet Count 89 k/uL (150-450)
[2020-07-17] MEDS: hydrALAZINE HCL 25 MG TAB PO SCH (08:41)
[2020-07-17] MEDS: METOPROLOL TARTRATE 50 MG TAB PO SCH (08:41)
[2020-07-17] MEDS: SODIUM BICARBONATE TAB 650 MG TAB PO SCH (08:41)
[2020-07-17 11:46] VITALS: BP 145/75; PULSE 65; TEMP 98.2
[2020-07-17] MEDS: ATORVASTATIN 80 MG TAB PO SCH (11:48)
--- NOTE | 2020-07-17 12:31 | P.DS ---
Providers Date of admission: 07/10/20 19:16 Expected date of discharge: 07/17/20 Attending physician: Sebas Garza Consults: 07/10/20 17:38 Consult Physician Stat Consulting Provider: Matthias Erickson Consult Reason/Comments: Aortic graft endoleak Do you want consulting provider notified?: Yes 07/11/20 09:24 Consult Physician Stat Consulting Provider: Patel Johnson Consult Reason/Comments: acute renal failure, possible renal artery occlusion Do you want consulting provider notified?: Already Contacted 07/11/20 09:33 Consult Physician Stat Consulting Provider: Shaq Dong Consult Reason/Comments: placement of hemodialysis catheter Do you want consulting provider notified?: Yes 07/11/20 13:52 Consult Physician Routine Consulting Provider: Jayy Hicks Consult Reason/Comments: Bladder mass Do you want consulting provider notified?: Yes Primary care physician: [facility] Course: Final Diagnoses: (1) Mechanical back pain Current Visit: No Status: Acute Code(s): M54.9 - DORSALGIA, UNSPECIFIED SNOMED Code(s): 500989943 (2) Degenerative disc disease, lumbar Current Visit: No Status: Acute Code(s): M51.36 - OTHER INTERVERTEBRAL DISC DEGENERATION, LUMBAR REGION SNOMED Code(s): 05479440 (3) Urinary tract infection Current Visit: No Status: Acute Code(s): N39.0 - URINARY TRACT INFECTION, SITE NOT SPECIFIED SNOMED Code(s): 86961916 (4) progressive acute on chronic Renal failure, currently end-stage renal disease, hemodialysis initiated Current Visit: Yes Status: Acute Code(s): N19 - UNSPECIFIED KIDNEY FAILURE SNOMED Code(s): 52534833 (5) Inguinal hernia Current Visit: Yes Status: Acute Code(s): K40.90 - UNIL INGUINAL HERNIA, W/O OBST OR GANGR, NOT SPCF RECUR SNOMED Code(s): 315110496 (6) bilateral Renal artery occlusion Current Visit: Yes Status: Acute Code(s): N28.0 - ISCHEMIA AND INFARCTION OF KIDNEY SNOMED Code(s): 874890011 (7) Endoleak of aortic graft Current Visit: Yes Status: Acute Code(s): T82.330A - LEAKAGE OF AORTIC (BIFURCATION) GRAFT (REPLACEMENT), INIT SNOMED Code(s): 934913420492112 (8) hypertension Hospital course: Patient admitted with abdominal, acute renal injury. currently dialyzed [address] angiogram of the aorta and renals results pending, patient doing actually quite well pain and discomfort is diminished BUN/creatinine creatinine have already improved waiting on vascular surgery recommendations we'll continue to follow 07/14/2020 This patient underwent arteriogram of the aorta and iliacs and renal arteries this morning per vascular surgery, apparently both renal artery angioplasty stent sites are occluded and the possibility of revascularization is unlikely it appears this patient is going to be on dialysis for the remainder of his life Dr. Phan made patient aware of this he will be undergoing procedure for dialysis access within the next 2-3 days 07/15/2020 receiving hemodialysis today via temporary femoral dialysis catheter. Telemetry sinus rhythm. Denies chest pain, palpitations or increased shortness of breath. 07/16/2020 hemodialysis yesterday. Scheduled for permacath/tunneled dialysis catheter placement this morning. Afebrile. Denies nausea or vomiting. Labs pending. Status post right tunneled hemodialysis catheter placement via right internal jugular vein, tolerated procedure well. Patient will be discharged home in a stable condition with guarded prognosis after hemodialysis pending final DC recommendations, clearance from nephrology. Patient has been set up with [facility] as per case management. The impression and plan of care has been dictated as directed. : I performed a history and examination of this patient, discussed the same with the dictator. I agree with the dictator's note ,documented as a scribe. Any additional findings or plans will be noted. Patient Condition at Discharge: Stable Plan - Discharge Summary Discharge Rx Participant: Yes New Discharge Prescriptions: New hydrALAZINE HCL [Apresoline] 25 mg PO TID #90 tab Pantoprazole [Protonix] 40 mg PO AC-BRKFST #30 tablet. Sodium Bicarbonate Tab 650 mg PO TID #60 tab Acetaminophen Tab [Tylenol] 650 mg PO Q6HR PRN tab PRN Reason: Mild Pain Or Fever > 100.5 Continue Atorvastatin [Lipitor] 80 mg PO DAILY@1200 Aspirin EC [Ecotrin Low Dose] 81 mg PO DAILY@1200 Metoprolol Tartrate [Lopressor] 50 mg PO BID Discontinued Cephalexin [Keflex] 500 mg PO Q6HR #28 cap Valsartan 80 mg PO DAILY Discharge Medication List Aspirin EC [Ecotrin Low Dose] 81 mg PO DAILY@1200 01/12/19 [History] Atorvastatin [Lipitor] 80 mg PO DAILY@1200 01/12/19 [History] Metoprolol Tartrate [Lopressor] 50 mg PO BID 07/10/20 [History] Acetaminophen Tab [Tylenol] 650 mg PO Q6HR PRN tab 07/17/20 [Rx] Pantoprazole [Protonix] 40 mg PO AC-JAMEEFSZachary #30 tablet. 07/17/20 [Rx] Sodium Bicarbonate Tab 650 mg PO TID #60 tab 07/17/20 [Rx] hydrALAZINE HCL [Apresoline] 25 mg PO TID #90 tab 07/17/20 [Rx] Follow up Appointment(s)/Referral(s): Ana Dsouza MD [STAFF PHYSICIAN] [facility] - Sebas Garza Jr, DO [Primary Care Provider] - 3 Days Hong Gaines MD [STAFF PHYSICIAN] - As Needed (as advised. Please confirm prior to DC.) Ambulatory/Diagnostic Orders: Complete Blood Count w/diff [LAB.AMB] Time Frame: 3 Days, Location: None Selected Activity/Diet/Wound Care/Special Instructions: Pending hemodialysis today, clearance, final DC recommendations from nephrology and vascular
--- NOTE | 2020-07-17 15:38 | P.PN ---
Subjective Progress Note Date: 07/17/20 Patient seen and examined. Overall doing well. The tunneled dialysis catheter placed yesterday functioning well. No significant issues. Groin catheter so remains in place No acute distress Heart regular No respiratory distress Right chest wall tunneled dialysis catheter in place. No hematoma or bleeding. Left femoral catheter in place End-stage renal disease, now requiring dialysis Previous endovascular abdominal aortic aneurysm repair with renal stents This patient is to continue dialysis. We'll remove the femoral temporary catheter. From my standpoint he may be discharged at this point in follow-up with Dr. Phan as an outpatient for further dialysis access planning Objective - Vital Signs Vital signs: Vital Signs Temp 98.2 F 07/17/20 11:45 Pulse 65 07/17/20 11:45 Resp 18 07/17/20 11:45 BP 145/75 07/17/20 11:45 Pulse Ox 98 07/17/20 11:45 Intake & Output 07/16/20 07/17/20 07/17/20 18:59 06:59 18:59 Intake Total 730 760 240 Output Total 0 Balance 730 760 240 Weight 73.2 kg 73 kg Intake: IV 150 Oral 580 760 240 Output: Urine 0 Other: Voiding Method Indwelling Catheter Indwelling Catheter # Voids 0 - Labs CBC & Chem 7: 07/17/20 05:51 07/17/20 05:51 Labs: Abnormal Lab Results - Last 24 Hours (Table) 07/17/20 07/17/20 Range/Units 05:51 05:51 RBC 3.06 L (4.30-5.90) m/uL Hgb 9.5 L (13.0-17.5) gm/dL Hct 29.0 L (39.0-53.0) % Plt Count 89 L D (150-450) k/uL Sodium 133 L (137-145) mmol/L BUN 55 H (9-20) mg/dL Creatinine 10.65 H* (0.66-1.25) mg/dL Calcium 7.8 L (8.4-10.2) mg/dL
--- NOTE | 2020-07-17 15:39 | PN ---
PROGRESS NOTE The patient is seen for follow up for progressive renal failure, currently end-stage renal disease. He does not have any significant urine output. Patient is being started on dialysis this admission. He will be going to the [facility]. The patient is scheduled for hemodialysis today in the hospital. On examination, blood pressure is 146/70, heart rate 72 per minute. He is afebrile. Examination of the heart S1, S2. Examination of the lungs, bilateral breath sounds are heard. Abdomen is soft, nontender. Examination of lower extremities shows trace edema bilaterally. INSULATION CUTTER exam grossly intact. LAB: Show potassium 5.1, sodium 133, hemoglobin 9.5 g/dL. ASSESSMENT: 1. End-stage renal disease, currently on hemodialysis. No urine output. We can discontinue the Mix catheter. The patient is set up for outpatient dialysis at the [facility]. Therefore, he could be discharged and follow up for dialysis as outpatient. He does have a history of bilateral renal artery stent. Both kidneys are small on ultrasound and patient will likely not benefit from any further intervention. The guidewire could not be passed through the renal arteries. I have discussed with the patient regarding long-term dialysis and the fact that he will likely not regain any function. His DOE was positive. However, I do not believe it will add to the management and cannot affect the treatment and management down the road. 2. Abdominal aortic aneurysm with endovascular repair with graft and bilateral renal artery occlusion with bilateral renal artery stent placement. PLAN: Hemodialysis today and patient could be discharged if he has an outpatient chair time. MMODL / IJN: [id number] /
== END 2020-07-17 17:13 | disposition home or self-care (01) | DRG 674 ==
LOC: EC 13:26 → 3SCARD 19:16
PROVIDERS: ADMIT Family Medicine; ATTEND Family Medicine
PROC: 06HY33Z Insertion of Infusion Device into Lower Vein, Percutaneous Approach (ICD-10-PCS; 2020-07-11 16:40)
PROC: B41D1ZZ Fluoroscopy of Aorta and Bilateral Lower Extremity Arteries using Low Osmolar Contrast (ICD-10-PCS; 2020-07-14)
PROC: 05HM33Z Insertion of Infusion Device into Right Internal Jugular Vein, Percutaneous Approach (ICD-10-PCS; principal; 2020-07-16 09:00)
PROC: 0JH63XZ Insertion of Tunneled Vascular Access Device into Chest Subcutaneous Tissue and Fascia, Percutaneous Approach (ICD-10-PCS; principal; 2020-07-16 09:00)
PROC: 5A1D70Z Performance of Urinary Filtration, Intermittent, Less than 6 Hours Per Day (ICD-10-PCS; principal; 2020-07-16 09:00)
DX: N17.9 Acute kidney failure, unspecified (principal); I12.0 Hypertensive chronic kidney disease with stage 5 chronic kidney disease or end stage renal disease; T82.598A Other mechanical complication of other cardiac and vascular devices and implants, initial encounter; N28.0 Ischemia and infarction of kidney; E87.2 Acidosis; N39.0 Urinary tract infection, site not specified; N18.6 End stage renal disease; I71.4 Abdominal aortic aneurysm, without rupture; K40.90 Unilateral inguinal hernia, without obstruction or gangrene, not specified as recurrent; M51.36 Other intervertebral disc degeneration, lumbar region; E87.5 Hyperkalemia; N40.0 Benign prostatic hyperplasia without lower urinary tract symptoms; N32.9 Bladder disorder, unspecified; M54.9 Dorsalgia, unspecified; Z87.891 Personal history of nicotine dependence; Z99.2 Dependence on renal dialysis; Z86.79 Personal history of other diseases of the circulatory system; Z82.49 Family history of ischemic heart disease and other diseases of the circulatory system; Z80.0 Family history of malignant neoplasm of digestive organs; Z79.899 Other long term (current) drug therapy; Z79.82 Long term (current) use of aspirin
CPT/HCPCS: 36200; 36415; 36558; 36571; 51702; 71045; 74174; 74176; 75625; 76770; 76937; 77001; 80048; 80053; 82150; 82565; 83516; 83605; 83615; 83690; 83735; 83883; 84165; 84520; 85025; 85027; 85610; 85730; 86038; 86039; 86160; 86225; 86255; 86704; 86706; 87340; 90935; 93005; 93975; 96361; 96374; 96375; 99285

== ENCOUNTER 2020-07-19 00:31 | Emergency (ER) | payer MEDICARE ==
[2020-07-19 00:54] VITALS: TEMP 98.1
[2020-07-19] MEDS ORDERED: TOPICAL SKIN ADHESIVE 1 EACH AMP TOPICAL ONE (01:08)
[2020-07-19] MEDS ORDERED: GELATIN SPONGE,ABSORB (SMALL) 1 EACH SPONGE TOPICAL STA (02:47)
[2020-07-19] MEDS ORDERED: TRANEXAMIC ACID 1,000 MG in SODIUM CHLORIDE 0.9% 100 ML IVPB ONE (04:00)
[2020-07-19] MEDS ORDERED: METOPROLOL TARTRATE 25 MG TAB PO STA ×2 (04:56)
[2020-07-19] MEDS ORDERED: hydrALAZINE HCL 25 MG TAB PO STA (04:56)
[2020-07-19] MEDS ORDERED: hydrALAZINE HCL 20 MG/ML 1 ML VIAL IVP STA (05:37)
--- NOTE | 2020-07-19 06:47 | ED ---
Recheck HPI - General Chief Complaint: Recheck/Abnormal Lab/Rx Stated Complaint: Port Bleeding Time Seen by Provider: 07/19/20 00:42 Source: patient Mode of arrival: ambulatory Limitations: no limitations - History of Present Illness Initial Comments: This patient is 74-year-old man who is a dialysis patient who presents to be evaluated for bleeding. The patient states that his last dialysis was yesterday. He had been getting ready for bed tonight when he noticed that his shirt had blood on it. He looked underneath and found that there was bleeding from the insertion site of his dialysis catheter. Patient denies any symptoms of anemia. He denies use of any blood thinner medications. Complaint: wound re-check -: minutes(s) Initial Visit For: other (Dialysis catheter) Returns Today for: other (Bleeding) Symptoms Since Prior Visit: no new symptoms Associated Symptoms: none - Related Data Home Medications Medication Instructions Recorded Confirmed Aspirin EC [Ecotrin Low Dose] 81 mg PO DAILY@1200 01/12/19 07/10/20 Atorvastatin [Lipitor] 80 mg PO DAILY@1200 01/12/19 07/10/20 Metoprolol Tartrate [Lopressor] 50 mg PO BID 07/10/20 07/10/20 Previous Rx's Medication Instructions Recorded Acetaminophen Tab [Tylenol] 650 mg PO Q6HR PRN tab 07/17/20 Pantoprazole [Protonix] 40 mg PO AC-BRKFST #30 tablet. 07/17/20 Sodium Bicarbonate Tab 650 mg PO TID #60 tab 07/17/20 hydrALAZINE HCL [Apresoline] 25 mg PO TID #90 tab 07/17/20 Allergies Allergy/AdvReac Type Severity Reaction Status Date / Time No Known Allergies Allergy Verified 07/19/20 00:54 Review of Systems ROS Statement: Those systems with pertinent positive or pertinent negative responses have been documented in the HPI. ROS Other: All systems not noted in ROS Statement are negative. 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 History of Any Multi-Drug Resistant Organisms: None Reported Additional Past Surgical History / Comment(s): AAA stent placement, right inguinal hernia repair Past Psychological History: No Psychological Hx Reported Smoking Status: Former smoker Past Alcohol Use History: None Reported Past Drug Use History: None Reported - Past Family History Mother Additional Family Medical History / Comment(s): low blood pressure Sister(s) Family Medical History: Cancer, Myocardial Infarction ([place]) Additional Family Medical History / Comment(s): esophageal ca Brother(s) Family Medical History: Pneumonia General Exam Limitations: no limitations General appearance: alert, in no apparent distress Head exam: Present: atraumatic, normocephalic Eye exam: Present: normal appearance Respiratory exam: Present: normal lung sounds bilaterally. Absent: respiratory distress, wheezes, rales, rhonchi, stridor Cardiovascular Exam: Present: regular rate, normal rhythm, normal heart sounds. Absent: systolic murmur, diastolic murmur, rubs, gallop GI/Abdominal exam: Present: soft. Absent: distended, tenderness, guarding, rebound, rigid Extremities exam: Present: normal inspection, normal capillary refill. Absent: pedal edema, calf tenderness Neurological exam: Present: alert Skin exam: Present: warm, dry, intact, normal color. Absent: rash Course Vital Signs 07/19/20 07/19/20 07/19/20 00:51 02:57 05:00 Temperature 98.1 F Pulse Rate 68 66 84 Respiratory 18 19 17 Rate Blood Pressure 163/82 181/98 191/98 O2 Sat by Pulse 96 96 95 Oximetry 07/19/20 07/19/20 07/19/20 05:15 05:51 06:17 Temperature Pulse Rate 72 74 Respiratory 15 Rate Blood Pressure 180/102 183/93 168/83 O2 Sat by Pulse 95 96 Oximetry 07/19/20 06:30 Temperature Pulse Rate 81 Respiratory 15 Rate Blood Pressure 156/81 O2 Sat by Pulse 96 Oximetry Medical Decision Making - Medical Decision Making The patient did have slow oozing from the site of the dialysis catheter in right upper chest. Initially attempted to place skin adhesive at the insertion site without success this was followed by Gelfoam thrombin, and then there was still a continued trickle and direct pressure held for 20 minutes which did seem to stop the bleeding. Disposition Clinical Impression: Hemorrhage from dialysis catheter Disposition: HOME SELF-CARE Condition: Good Instructions (If sedation given, give patient instructions): Postoperative Bleeding (ED) Is patient prescribed a controlled substance at d/c from ED?: No Referrals: Sebas Garza Jr, [Primary Care Provider] - 1-2 days
[2020-07-19 07:21] VITALS: BP 161/85; PULSE 66; RESP 18
== END 2020-07-19 07:33 | disposition home or self-care (01) ==
LOC: EC 00:31
DX: T82.838A Hemorrhage due to vascular prosthetic devices, implants and grafts, initial encounter (principal); Z87.891 Personal history of nicotine dependence; I10 Essential (primary) hypertension; N17.9 Acute kidney failure, unspecified; Z79.82 Long term (current) use of aspirin; Z79.899 Other long term (current) drug therapy
CPT/HCPCS: 99283; 96365; 96375; J0360

== ENCOUNTER 2020-08-06 05:49 | Emergency (ER) | payer MEDICARE ==
[2020-08-06 05:54] VITALS: TEMP 97.7
--- NOTE | 2020-08-06 06:29 | XR ---
EXAMINATION TYPE: XR chest 2V DATE OF EXAM: 08/06/2020 COMPARISON: CTA chest July 23, 2020. 2 view chest x-ray July 21, 2020. HISTORY: Difficulty in breathing. TECHNIQUE: Frontal and lateral views of the chest are obtained. FINDINGS: There is background chronic emphysematous change with persistent small to tiny left pleura l effusion. Some interstitial edema is present on current study. Cardiac silhouette size within nor mal limits. Stable large bore right internal jugular dialysis catheter. The osseous structures are in tact. Cholecystectomy clips redemonstrated. Abdominal aortic stent graft partially imaged. IMPRESSION: Chronic emphysematous change with persistent small to tiny left pleural effusion. Slight ly more prominent mild to moderate interstitial edema. Correlate for fluid overload state.
[2020-08-06 06:43] LABS: Albumin 3.7 g/dL (3.5-5.0); Calcium 8.7 mg/dL (8.4-10.2); Magnesium 1.9 mg/dL (1.6-2.3); Potassium 3.8 mmol/L (3.5-5.1); Total Bilirubin 0.6 mg/dL (0.2-1.3); Total Protein 6.4 g/dL (6.3-8.2)
[2020-08-06 06:46] LABS: Anisocytosis Slight; Basophils # (A) 0.1 k/uL (0-0.2); Basophils % (A) 1 %; Eosinophils # (A) 0.2 k/uL (0-0.7); Eosinophils % (A) 2 %; HCT 28.7 % (39.0-53.0); HGB 9.3 gm/dL (13.0-17.5); Lymphocytes # (A) 2.2 k/uL (1.0-4.8); Lymphocytes % (A) 20 %; MCH 31.6 pg (25.0-35.0); MCHC 32.3 g/dL (31.0-37.0); MCV 97.9 fL (80.0-100.0); Macrocytosis Slight; Mean Platelet Volume 7.8; Monocytes # (A) 0.6 k/uL (0-1.0); Monocytes % (A) 6 %; Neutrophils # (A) 7.6 k/uL (1.3-7.7); Neutrophils % (A) 70 %; RBC 2.93 m/uL (4.30-5.90); RDW 16.7 % (11.5-15.5); WBC 10.8 k/uL (3.8-10.6)
[2020-08-06 06:49] LABS: Platelet Count 190 k/uL (150-450)
[2020-08-06 06:58] LABS: Partial Thromboplastin Time 24.6 sec (22.0-30.0); Prothrombin Time 10.8 sec (9.0-12.0)
--- NOTE | 2020-08-06 07:02 | ED ---
General Adult HPI - General Chief complaint: Shortness of Breath Stated complaint: SOB Time Seen by Provider: 08/06/20 06:05 Source: patient, family, RN notes reviewed Mode of arrival: wheelchair Limitations: no limitations - History of Present Illness Initial comments: This a 75-year-old male presents emergency Department chief complaint of dyspnea started a few hours ago. Patient states that he was feeling better after his last hospitalization. Patient states that he went to dialysis on Wednesday which was his normal day. Patient states that he did not have an shortness of breath until 2 hours ago. Patient denies any medication changes. Patient denies any nausea vomiting diarrhea constipation. Patient makes little to no urine. Patient denies any fevers or chills. No chest pain. - Related Data Home Medications Medication Instructions Recorded Confirmed Atorvastatin [Lipitor] 80 mg PO DAILY@1200 01/12/19 07/21/20 Metoprolol Tartrate [Lopressor] 50 mg PO BID 07/10/20 07/21/20 hydrALAZINE HCL [Apresoline] 25 mg PO QID 07/21/20 07/21/20 Previous Rx's Medication Instructions Recorded Acetaminophen Tab [Tylenol] 650 mg PO Q6HR PRN tab 07/17/20 Pantoprazole [Protonix] 40 mg PO AC-BRKFST #30 tablet. 07/17/20 Darbepoetin Brian [Aranesp] 40 mcg SQ Q7D syringe 07/25/20 Allergies Allergy/AdvReac Type Severity Reaction Status Date / Time heparin AdvReac Unknown Verified 08/06/20 05:54 Review of Systems ROS Statement: Those systems with pertinent positive or pertinent negative responses have been documented in the HPI. ROS Other: All systems not noted in ROS Statement are negative. Past Medical History Past Medical History: Hypertension, Renal Disease Additional Past Medical History / Comment(s): AAA, EVANGELIST History of Any Multi-Drug Resistant Organisms: None Reported Additional Past Surgical History / Comment(s): AAA stent placement, right inguinal hernia repair, dialysis Past Anesthesia/Blood Transfusion Reactions: No Reported Reaction Past Psychological History: No Psychological Hx Reported Smoking Status: Former smoker Past Alcohol Use History: None Reported Past Drug Use History: None Reported - Past Family History Mother Additional Family Medical History / Comment(s): low blood pressure Sister(s) Family Medical History: Cancer, Myocardial Infarction ([place]) Additional Family Medical History / Comment(s): esophageal ca Brother(s) Family Medical History: Pneumonia General Exam Limitations: no limitations General appearance: alert, in no apparent distress Head exam: Present: atraumatic, normocephalic, normal inspection Neck exam: Present: normal inspection. Absent: tenderness, meningismus, lymphadenopathy Respiratory exam: Present: rales. Absent: normal lung sounds bilaterally, respiratory distress, wheezes, rhonchi, stridor Cardiovascular Exam: Present: regular rate, normal rhythm, normal heart sounds. Absent: systolic murmur, diastolic murmur, rubs, gallop, clicks Neurological exam: Present: alert, oriented X3 Skin exam: Present: warm, dry, intact, normal color. Absent: rash Course Vital Signs 08/06/20 08/06/20 08/06/20 05:50 06:11 07:00 Temperature 97.7 F Pulse Rate 70 60 Respiratory 24 24 20 Rate Blood Pressure 207/98 172/89 O2 Sat by Pulse 94 L 99 Oximetry 08/06/20 07:15 Temperature Pulse Rate 58 L Respiratory 16 Rate Blood Pressure 170/88 O2 Sat by Pulse 99 Oximetry EKG Findings - EKG Comments: EKG Findings:: Sinus rhythm with first-degree block rate of 65 CA 212 QRS 134 QT/QTC 478/497 Procedures - [place] Protocol (Time Out) Nurse: Ale De La Cruz Medical Decision Making - Medical Decision Making Patient presented for acute dyspnea. Patient has mild fluid overload the patient's vitals are stable, patient feels improved at this time. Patient needs dialysis we did contact his dialysis center who stated he can come over for dialysis now. Patient will be discharged stable condition with follow-up. - Lab Data Result diagrams: 08/06/20 06:17 08/06/20 06:17 Lab Results 08/06/20 08/06/20 08/06/20 Range/Units 06:17 06:17 06:17 WBC 10.8 H (3.8-10.6) k/uL RBC 2.93 L (4.30-5.90) m/uL Hgb 9.3 L (13.0-17.5) gm/dL Hct 28.7 L (39.0-53.0) % MCV 97.9 (80.0-100.0) fL MCH 31.6 (25.0-35.0) pg MCHC 32.3 (31.0-37.0) g/dL RDW 16.7 H (11.5-15.5) % Plt Count 190 D (150-450) k/uL Neutrophils % 70 % Lymphocytes % 20 % Monocytes % 6 % Eosinophils % 2 % Basophils % 1 % Neutrophils # 7.6 (1.3-7.7) k/uL Lymphocytes # 2.2 (1.0-4.8) k/uL Monocytes # 0.6 (0-1.0) k/uL Eosinophils # 0.2 (0-0.7) k/uL Basophils # 0.1 (0-0.2) k/uL Anisocytosis Slight Macrocytosis Slight PT 10.8 (9.0-12.0) sec INR 1.0 (<1.2) APTT 24.6 (22.0-30.0) sec Sodium 131 L (137-145) mmol/L Potassium 3.8 (3.5-5.1) mmol/L Chloride 91 L (98-107) mmol/L Carbon Dioxide 29 (22-30) mmol/L Anion Gap 11 mmol/L BUN 42 H (9-20) mg/dL Creatinine 9.51 H* (0.66-1.25) mg/dL Est GFR (CKD-EPI)AfAm 6 (>60 ml/min/1.73 sqM) Est GFR (CKD-EPI)NonAf 5 (>60 ml/min/1.73 sqM) Glucose 103 H (74-99) mg/dL Plasma Lactic Acid Victor Hugo (0.7-2.0) mmol/L Calcium 8.7 (8.4-10.2) mg/dL Magnesium 1.9 (1.6-2.3) mg/dL Total Bilirubin 0.6 (0.2-1.3) mg/dL AST 31 (17-59) U/L ALT 19 (4-49) U/L Alkaline Phosphatase 81 (38-126) U/L Troponin I (0.000-0.034) ng/mL NT-Pro-B Natriuret Pep pg/mL Total Protein 6.4 (6.3-8.2) g/dL Albumin 3.7 (3.5-5.0) g/dL 08/06/20 08/06/20 08/06/20 Range/Units 06:17 06:17 06:17 WBC (3.8-10.6) k/uL RBC (4.30-5.90) m/uL Hgb (13.0-17.5) gm/dL Hct (39.0-53.0) % MCV (80.0-100.0) fL MCH (25.0-35.0) pg MCHC (31.0-37.0) g/dL RDW (11.5-15.5) % Plt Count (150-450) k/uL Neutrophils % % Lymphocytes % % Monocytes % % Eosinophils % % Basophils % % Neutrophils # (1.3-7.7) k/uL Lymphocytes # (1.0-4.8) k/uL Monocytes # (0-1.0) k/uL Eosinophils # (0-0.7) k/uL Basophils # (0-0.2) k/uL Anisocytosis Macrocytosis PT (9.0-12.0) sec INR (<1.2) APTT (22.0-30.0) sec Sodium (137-145) mmol/L Potassium (3.5-5.1) mmol/L Chloride (98-107) mmol/L Carbon Dioxide (22-30) mmol/L Anion Gap mmol/L BUN (9-20) mg/dL Creatinine (0.66-1.25) mg/dL Est GFR (CKD-EPI)AfAm (>60 ml/min/1.73 sqM) Est GFR (CKD-EPI)NonAf (>60 ml/min/1.73 sqM) Glucose (74-99) mg/dL Plasma Lactic Acid Victor Hugo 1.0 (0.7-2.0) mmol/L Calcium (8.4-10.2) mg/dL Magnesium (1.6-2.3) mg/dL Total Bilirubin (0.2-1.3) mg/dL AST (17-59) U/L ALT (4-49) U/L Alkaline Phosphatase (38-126) U/L Troponin I 0.128 H* (0.000-0.034) ng/mL NT-Pro-B Natriuret Pep 00069 pg/mL Total Protein (6.3-8.2) g/dL Albumin (3.5-5.0) g/dL Disposition Clinical Impression: Renal failure, Fluid overload, Dyspnea Disposition: HOME SELF-CARE Condition: Stable Instructions (If sedation given, give patient instructions): Chronic Kidney Disease (ED) Additional Instructions: Please go directly to dialysis.Please return to the Emergency Department if symptoms worsen or any other concerns. Is patient prescribed a controlled substance at d/c from ED?: No Referrals: Sebas Garza Jr, [Primary Care Provider] - 1-2 days Time of Disposition: 07:50
[2020-08-06 07:30] VITALS: BP 170/88; PULSE 58; RESP 16
== END 2020-08-06 07:52 | disposition home or self-care (01) ==
LOC: EC 05:49
DX: I12.9 Hypertensive chronic kidney disease with stage 1 through stage 4 chronic kidney disease, or unspecified chronic kidney disease (principal); N18.9 Chronic kidney disease, unspecified; R06.00 Dyspnea, unspecified; E87.70 Fluid overload, unspecified; Z79.899 Other long term (current) drug therapy; Z88.8 Allergy status to other drugs, medicaments and biological substances; Z87.891 Personal history of nicotine dependence
CPT/HCPCS: 36415; 71046; 80053; 83605; 83735; 83880; 84484; 85025; 85610; 85730; 93005; 99285

== ENCOUNTER 2020-08-30 06:24 | Day surgery (SDC) | payer MEDICARE ==
[2020-08-28 11:01] VITALS: BMI 22.4
[~2020-08-30 06:24] MED LIST: DEXAMETHASONE SOD PHOSPHATE 10 MG/ML 1 ML VIAL IV ONE; HYDROmorphone 0.5 MG/0.5 ML SYRINGE IVP PRN; LACTATED RINGERS 1,000 ML IV SCH; LIDOCAINE 1% (10MG/ML) FOR IV START INTRADERMA PRN; ONDANSETRON 4 MG/2 ML VIAL IVP ONE; ONDANSETRON 4 MG/2 ML VIAL IVP PRN; [UNRECOGNIZED DRUG - REMARK] MISCELLANE ONE
[2020-08-30] MEDS ORDERED: SODIUM CHLORIDE 0.9% 1,000 ML IV ONE (07:01)
[2020-08-30 07:06] LABS: Basophils % (A) 1 %; Eosinophils # (A) 0.2 k/uL (0-0.7); Eosinophils % (A) 2 %; HCT 29.5 % (39.0-53.0); HGB 9.8 gm/dL (13.0-17.5); Lymphocytes # (A) 1.7 k/uL (1.0-4.8); Lymphocytes % (A) 25 %; MCH 32.4 pg (25.0-35.0); MCHC 33.2 g/dL (31.0-37.0); MCV 97.4 fL (80.0-100.0); Mean Platelet Volume 8.4; Monocytes # (A) 0.6 k/uL (0-1.0); Monocytes % (A) 9 %; Neutrophils # (A) 4.2 k/uL (1.3-7.7); Neutrophils % (A) 62 %; Platelet Count 107 k/uL (150-450); RBC 3.03 m/uL (4.30-5.90); RDW 15.4 % (11.5-15.5); WBC 6.8 k/uL (3.8-10.6)
[2020-08-30 07:08] LABS: Albumin 3.9 g/dL (3.5-5.0); Potassium 3.6 mmol/L (3.5-5.1); Total Bilirubin 0.8 mg/dL (0.2-1.3); Total Protein 6.6 g/dL (6.3-8.2)
[2020-08-30] MEDS ORDERED: ePHEDrine SULFATE/0.9% NACL/PF 50 MG/5 ML SYRINGE IV ONE (08:05)
[2020-08-30] MEDS ORDERED: fentaNYL (PF) 50 MCG/ML 2 ML AMP ONE (08:05)
[2020-08-30] MEDS ORDERED: GLYCOPYRROLATE 0.2 MG/ML 2 ML VIAL ONE (08:05)
[2020-08-30] MEDS ORDERED: PROPOFOL 10 MG/ML 20 ML VIAL IV ONE (08:05)
[2020-08-30] MEDS ORDERED: LIDOCAINE 1% INJ 10MG/ML (20 ML MDV) ONE (08:05)
[2020-08-30] MEDS ORDERED: ROCURONIUM BROMIDE 10 MG/ML 5 ML VIAL IV ONE (08:05)
[2020-08-30] MEDS ORDERED: NEOSTIGMINE 1 MG/ML 10 ML VIAL ONE (08:05)
[2020-08-30] MEDS ORDERED: BUPIVACAINE (PF) 0.25% 30 ML VIAL SQ ONE ×2 (08:42)
[2020-08-30 10:24] VITALS: TEMP 97.1
[2020-08-30 10:48] VITALS: RESP 16
[2020-08-30] MEDS ORDERED: NALOXONE 0.4 MG/ML 1 ML VIAL IV PRN (10:59)
[2020-08-30] MEDS ORDERED: HYDROcodone/APAP 5-325MG 1 EACH TAB PO PRN (10:59)
--- NOTE | 2020-08-30 12:12 | P.OP ---
Date of Procedure: 08/30/20 Procedure(s) Performed: PREOPERATIVE DIAGNOSIS: Recurrent incarcerated right inguinal hernia, renal failure POSTOPERATIVE DIAGNOSIS: Same PROCEDURE: Recurrent right incarcerated inguinal hernia repair with mesh, PD catheter placement, partial omentectomy SURGEON: Citlali EBL: Minimal ANESTHESIA: General COMPLICATIONS: None OPERATIVE PROCEDURE: The patient was placed in the operative table in the supine position. His abdomen was prepped and draped in usual sterile fashion. A small vertical incision was made in the right periumbilical location. Dissection down through the subcutaneous tissues took place using electrocautery. The anterior rectus was divided vertically using the scalpel. The rectus was bluntly. The posterior rectus was visualized. An 0 Vicryl pursestring was placed. A small opening in the posterior rectus fascia and peritoneum took place using a Metzenbaum scissors. There were no adhesions to the suture that was placed. The pigtail catheter was advanced into the pelvis over a stylette. No resistance was met. The inner cuff was secured to the fascia using the 0 Vicryl pursestring that was placed. The catheter was tunneled to an exit site in the right lateral lower quadrant. The catheter was connected to the 1 L bag of saline and approximated 800 mL of saline was easily introduced into the peritoneal cavity. The fluid was then allowed to evacuate. The majority of the fluid was returned. The anterior rectus fascia was then reapproximated using a running 0 Vicryl stitch. The subcutaneous tissues reprepped using 3-0 Vicryl sutures and the skin using 4-0 Monocryl sutures. The outpatient dialysis adapter was applied to the end of the catheter. Skin glue was applied over the incision site and sterile dressings were applied over that at that time. Next we addressed the right groin where there was a large hernia present. The previous incision was re-incised sharply. Dissection down through the subcutaneous tissues took place using electrocautery. The external oblique fascia was incised using a scalpel. This opening was lengthened using the Metzenbaum scissors. The spermatic cord was encircled with a Mp drain. The structures were identified and preserved. Careful dissection revealed an large incarcerated indirect hernia sac. This was carefully dissected back to the internal inguinal ring. The hernia sac was opened. Serous fluid was evacuated. The patient had a portion of omentum adherent to the inside of the hernia sac. This was carefully dissected using interrupted silk ties and cautery. A portion of the omentum was then excised using 3-0 silk ties as well. The hernia sac was then ligated using 2 separate 0 silk stick tie sutures. A 3" x 6" Prolene mesh was cut to fit on the exposed fascia. This was sutured to the pubic tubercle the folding edge of the inguinal ligament and the conjoined tendon. A slit was created in the mesh and the mesh was wrapped around the spermatic cord and sutured back to itself. The external oblique was then reapproximated using a running 2-0 Vicryl suture. The subcutaneous tissues were reapproximated using a 3-0 Vicryl sutures. The skin was closed using 4-0 Monocryl sutures. Skin glue and sterile dressings were then applied. DISPOSITION: Stable to recovery room
[2020-08-30 12:14] VITALS: BP 143/69; PULSE 59
== END 2020-08-30 12:38 | disposition home or self-care (01) ==
LOC: OR 06:24
PROVIDERS: ATTEND Surgery
DX: K40.31 Unilateral inguinal hernia, with obstruction, without gangrene, recurrent (principal); N17.9 Acute kidney failure, unspecified; I10 Essential (primary) hypertension; I71.4 Abdominal aortic aneurysm, without rupture; Z90.49 Acquired absence of other specified parts of digestive tract; Z98.890 Other specified postprocedural states; Z87.891 Personal history of nicotine dependence; Z79.82 Long term (current) use of aspirin; Z79.899 Other long term (current) drug therapy; Z88.8 Allergy status to other drugs, medicaments and biological substances; E78.5 Hyperlipidemia, unspecified
CPT/HCPCS: 93005; 80053; 85025; 88302; 49521; 49421; C1752; C1781; J1100; J2710; J0690; J2405; J2001; J3010; J2704

== ENCOUNTER → 2020-09-27 | Outpatient (CLI) | payer MEDICARE ==
--- NOTE | 2020-09-27 15:11 | XR ---
EXAMINATION TYPE: XR abdomen 1V DATE OF EXAM: 09/27/2020 2:32 PM CLINICAL HISTORY: PD catheter placement rule out constipation.. TECHNIQUE: Single supine KUB image of the abdomen is obtained. COMPARISON: CTA aorta July 12, 2020. FINDINGS: New percutaneous catheter over the right upper pelvis. Scattered bilateral pelvic phlebolit hs. Cholecystectomy clips. Metallic stent graft in the abdominal aorta with proximal renal arterial s tent grafts. Surgical clips overlie the upper sacrum. Scattered bilateral pelvic phleboliths. Scatter ed gas in nondistended small bowel loops. Scattered gas and fecal material in nondistended colon. Pro minent spurs left lateral upper to mid lumbar spine. IMPRESSION: As above.
== END | disposition home or self-care (01) ==
LOC: RADXRMAIN 14:15
PROVIDERS: ATTEND Internal Medicine
DX: I87.8 Other specified disorders of veins (principal); K59.00 Constipation, unspecified; Z90.49 Acquired absence of other specified parts of digestive tract; Z95.828 Presence of other vascular implants and grafts
CPT/HCPCS: 74018

== ENCOUNTER 2020-10-17 11:10 | Day surgery (SDC) | payer MEDICARE ==
[2020-10-14 15:15] VITALS: BMI 21.4
[~2020-10-17 11:10] MED LIST changes: +ACETAMINOPHEN TAB 500 MG TAB PO ONE; -DEXAMETHASONE SOD PHOSPHATE 10 MG/ML 1 ML VIAL IV ONE; +DEXAMETHASONE SOD PHOSPHATE 4 MG/ML 1 ML VIAL IV ONE; -ONDANSETRON 4 MG/2 ML VIAL IVP PRN; +Pre Op ABX Message 1 EACH MISC MISCELLANE ONE; -[UNRECOGNIZED DRUG - REMARK] MISCELLANE ONE
[2020-10-17 11:35] VITALS: RESP 16
[2020-10-17] MEDS ORDERED: SODIUM CHLORIDE 0.9% 1,000 ML IV ONE (11:57)
[2020-10-17 12:51] LABS: Basophils % (A) 1 %; Eosinophils # (A) 0.1 k/uL (0-0.7); Eosinophils % (A) 3 %; HCT 30.8 % (39.0-53.0); Lymphocytes # (A) 1.1 k/uL (1.0-4.8); Lymphocytes % (A) 27 %; MCH 33.9 pg (25.0-35.0); MCHC 32.4 g/dL (31.0-37.0); Macrocytosis Moderate; Mean Platelet Volume 8.4; Monocytes # (A) 0.4 k/uL (0-1.0); Monocytes % (A) 9 %; Neutrophils # (A) 2.5 k/uL (1.3-7.7); Neutrophils % (A) 59 %; RBC 2.95 m/uL (4.30-5.90); RDW 15.2 % (11.5-15.5); WBC 4.2 k/uL (3.8-10.6)
[2020-10-17 12:54] LABS: MCV 104.5 fL (80.0-100.0)
[2020-10-17 13:13] LABS: Platelet Count 73 k/uL (150-450)
[2020-10-17] MEDS ORDERED: MIDAZOLAM 2 MG/2 ML VIAL ONE (13:36)
[2020-10-17] MEDS ORDERED: ePHEDrine SULFATE/0.9% NACL/PF 50 MG/5 ML SYRINGE IV ONE (13:36)
[2020-10-17] MEDS ORDERED: ROCURONIUM 10 MG/ML (10 ML VIAL) IV ONE (13:36)
[2020-10-17] MEDS ORDERED: NEOSTIGMINE 1 MG/ML 10 ML VIAL ONE (13:36)
[2020-10-17] MEDS ORDERED: PROPOFOL 10 MG/ML 20 ML VIAL IV ONE (13:36)
[2020-10-17] MEDS ORDERED: fentaNYL (PF) 50 MCG/ML 2 ML AMP ONE (13:36)
[2020-10-17] MEDS ORDERED: GLYCOPYRROLATE 0.2 MG/ML 2 ML VIAL ONE (13:36)
[2020-10-17] MEDS ORDERED: SUCCINYLCHOLINE CHLORIDE 100 MG/5 ML SYR IV ONE (13:36)
[2020-10-17] MEDS ORDERED: LIDOCAINE 1% INJ 10MG/ML (20 ML MDV) ONE (13:36)
[2020-10-17] MEDS ORDERED: BUPIVACAINE (PF) 0.25% 30 ML VIAL SQ ONE ×2 (14:18)
[2020-10-17] MEDS ORDERED: NALOXONE 0.4 MG/ML 1 ML VIAL IV PRN (15:14)
[2020-10-17] MEDS ORDERED: HYDROcodone/APAP 5-325MG 1 EACH TAB PO PRN (15:14)
--- NOTE | 2020-10-17 15:20 | P.OP ---
Date of Procedure: 10/17/20 Procedure(s) Performed: PREOPERATIVE DIAGNOSIS: Malfunctioning peritoneal dialysis catheter POSTOPERATIVE DIAGNOSIS: Malfunctioning catheter secondary to intra-abdominal adhesions PROCEDURE: Diagnostic laparoscopy with laparoscopic lysis of adhesions and omentopexy SURGEON: Citlali EBL: Óscar Tinajero ANESTHESIA: Gen. COMPLICATIONS: None OPERATIVE PROCEDURE: Patient place in the operating table in the supine position. The left arm was tucked. The abdomen was prepped and draped sterilely including the peritoneal dialysis catheter. A 5 mm optical trocar was used to enter the peritoneal cavity in the left upper quadrant. This was slightly challenging given the large aneurysmal sac that was easily palpable in the midline. Some insufflation of the preperitoneal space took place before entrance into the peritoneum. 2 additional 5 mm trochars were then placed under direct visualization in the left upper quadrant and left lateral location. The patient had adhesions between the omentum and the catheter entrance site as well as the pelvis. Using the LigaSure device we were able to lyse the adhesions between the omentum and the pelvis and catheter and ring this up into the upper abdomen. This was sutured then to the anterior abdominal wall using 2 separate 2-0 Vicryl sutures and tied down using the tie knot device. This kept the omentum nicely out of the mid abdomen and pelvis. The catheter by now was completely free. There was no evidence of any fibrinous occlusion of the lumen. The catheter was placed in the midline pelvis and a single 2-0 Vicryl suture was used to tether this to the peritoneum in the pelvis midline. The pneumoperitoneum was then evacuated. The skin at the 3 5 mm incision sites was closed using 4-0 Monocryl sutures and skin glue. Sterile dressings applied. DISPOSITION: Stable to recovery room
[2020-10-17 15:27] VITALS: TEMP 97.3
[2020-10-17 16:49] VITALS: BP 162/72; PULSE 56
== END 2020-10-17 17:00 | disposition home or self-care (01) ==
LOC: OR 11:10
PROVIDERS: ATTEND Surgery
DX: K66.0 Peritoneal adhesions (postprocedural) (postinfection) (principal); T85.611A Breakdown (mechanical) of intraperitoneal dialysis catheter, initial encounter; N19 Unspecified kidney failure; I10 Essential (primary) hypertension; I71.4 Abdominal aortic aneurysm, without rupture; D64.9 Anemia, unspecified; D69.6 Thrombocytopenia, unspecified; Z88.8 Allergy status to other drugs, medicaments and biological substances; Z87.891 Personal history of nicotine dependence; Z79.899 Other long term (current) drug therapy; Z90.49 Acquired absence of other specified parts of digestive tract; Z79.82 Long term (current) use of aspirin; Z99.2 Dependence on renal dialysis
CPT/HCPCS: 84132; 85025; 49325; J2250; J1100; J2710; J0690; J2405; J2001; J3010; J0330; J2704

== ENCOUNTER 2020-12-07 10:05 | Emergency (ER) | payer MEDICARE ==
[2020-12-07 10:09] VITALS: RESP 18; TEMP 97.2
--- NOTE | 2020-12-07 10:33 | ED ---
Neck Injury/Pain HPI - General Chief Complaint: Neck Pain/Injury Stated Complaint: neck pain Time Seen by Provider: 12/07/20 10:10 Source: patient, RN notes reviewed Mode of arrival: ambulatory Limitations: no limitations - History of Present Illness Initial Comments: 75-year-old male presents emergency Department chief complaint of neck discomfort. Patient states he slept wrong last night he woke up with neck pain is slightly worse on the right versus left foot states he feels on the sides of his neck. Denies any chest pain no shortness breath no symptoms into his arms no headache no dizziness no fevers or chills. He states he has no focal weakness. Patient states he took some Tylenol he did have some relief with symptoms. - Related Data Home Medications Medication Instructions Recorded Confirmed Atorvastatin [Lipitor] 80 mg PO DAILY@1200 01/12/19 10/14/20 Metoprolol Tartrate [Lopressor] 50 mg PO BID 07/10/20 10/14/20 Calcium Acetate [Phoslo] 667 mg PO TID 08/28/20 10/14/20 hydrALAZINE HCL [Apresoline] 50 mg PO TID 10/14/20 10/14/20 Previous Rx's Medication Instructions Recorded Acetaminophen Tab [Tylenol] 650 mg PO Q6HR PRN tab 07/17/20 methocarbamoL [Robaxin] 500 mg PO TID PRN #15 tab 12/07/20 predniSONE 50 mg PO DAILY #4 tab 12/07/20 Allergies Allergy/AdvReac Type Severity Reaction Status Date / Time heparin Allergy Severe LARRY Verified 12/07/20 10:09 Review of Systems ROS Statement: Those systems with pertinent positive or pertinent negative responses have been documented in the HPI. ROS Other: All systems not noted in ROS Statement are negative. Past Medical History Past Medical History: Hypertension, Renal Disease Additional Past Medical History / Comment(s): AAA, rt upper chest port for hemodialysis History of Any Multi-Drug Resistant Organisms: None Reported Past Surgical History: Cholecystectomy, Hernia Repair Additional Past Surgical History / Comment(s): AAA stent placement, right inguinal hernia repair, peritoneal dialysis placement Past Anesthesia/Blood Transfusion Reactions: No Reported Reaction Past Psychological History: No Psychological Hx Reported Smoking Status: Former smoker Past Alcohol Use History: None Reported Past Drug Use History: None Reported - Past Family History Sister(s) Family Medical History: Cancer, Myocardial Infarction ([place]) Additional Family Medical History / Comment(s): esophageal ca Brother(s) Family Medical History: Pneumonia General Exam Limitations: no limitations General appearance: alert, in no apparent distress Head exam: Present: atraumatic, normocephalic, normal inspection Eye exam: Present: normal appearance, PERRL, EOMI. Absent: scleral icterus, conjunctival injection, periorbital swelling ENT exam: Present: normal exam, normal oropharynx, mucous membranes moist Neck exam: Present: normal inspection, tenderness (Mild paracervical tenderness, no vertebral tenderness no step-off deformity.), full ROM. Absent: meningismus, lymphadenopathy Respiratory exam: Present: normal lung sounds bilaterally. Absent: respiratory distress, wheezes, rales, rhonchi, stridor Cardiovascular Exam: Present: regular rate, normal rhythm, normal heart sounds. Absent: systolic murmur, diastolic murmur, rubs, gallop, clicks Extremities exam: Present: other (Upper extremity strength equal bilaterally neurovascular intact pulses equal, full range of motion) Neurological exam: Present: alert, oriented X3, CN II-XII intact, reflexes normal. Absent: motor sensory deficit Skin exam: Present: warm, dry, intact, normal color. Absent: rash Course Vital Signs 12/07/20 10:06 Temperature 97.2 F L Pulse Rate 48 L Respiratory 18 Rate Blood Pressure 134/74 O2 Sat by Pulse 98 Oximetry Medical Decision Making - Medical Decision Making X-ray shows degenerative changes. Patient has no neurological deficits no headache no other complaints. Symptoms are consistent with muscle skeletal pain patient we discharged in stable condition with close follow-up. Disposition Clinical Impression: Strain of neck muscle Disposition: HOME SELF-CARE Condition: Stable Instructions (If sedation given, give patient instructions): Cervical Strain (ED) Additional Instructions: Please return to the Emergency Department if symptoms worsen or any other concer ns. Prescriptions: predniSONE 50 mg PO DAILY #4 tab methocarbamoL [Robaxin] 500 mg PO TID PRN #15 tab PRN Reason: muscle spasms Is patient prescribed a controlled substance at d/c from ED?: No Referrals: Sebas Garza Jr, DO [Primary Care Provider] - 1-2 days Time of Disposition: 11:52
--- NOTE | 2020-12-07 10:43 | XR ---
EXAMINATION TYPE: XR cervical spine comp DATE OF EXAM: 12/07/2020 COMPARISON: NONE HISTORY: Pain TECHNIQUE: Four views are submitted. FINDINGS: The odontoid is intact. There are no compression deformities. The prevertebral soft tissue structur es are within normal limits. Ossification along the posterior longitudinal ligament. There is 2 mm a nterolisthesis of C2 on C3. There is 2 mm retrolisthesis of C3 relative to C4 and C4 relative to C5. Multilevel moderate to severe degenerative disc disease. Soft tissue calcifications in the neck likel y related carotid arteries. Dialysis catheter seen on the AP view. Significant bilateral multilevel f oraminal encroachment suspected. IMPRESSION: 1. Severe multilevel degenerative disc disease with alignment issues as discussed above. Significant bilateral neural foraminal encroachment at multiple levels recommend follow-up MRI. 2. Soft tissue calcification posteriorly appears chronic.
[2020-12-07] MEDS ORDERED: ACET/COD 300 MG/30 MG STARTER PACK 6 TAB BTL PO STA (11:52)
[2020-12-07 12:11] VITALS: BP 142/73; PULSE 58
== END 2020-12-07 12:17 | disposition home or self-care (01) ==
LOC: EC 10:05
DX: M50.30 Other cervical disc degeneration, unspecified cervical region (principal); S16.1XXA Strain of muscle, fascia and tendon at neck level, initial encounter; I10 Essential (primary) hypertension; Z79.899 Other long term (current) drug therapy; Z88.8 Allergy status to other drugs, medicaments and biological substances; Z87.891 Personal history of nicotine dependence; X58.XXXA Exposure to other specified factors, initial encounter
CPT/HCPCS: 72050; 99283

== ENCOUNTER → 2020-12-16 | Outpatient (CLI) | payer MEDICARE ==
--- NOTE | 2020-12-17 10:33 | XR ---
EXAMINATION TYPE: XR shoulder complete RT DATE OF EXAM: 12/16/2020 COMPARISON: NONE HISTORY: Pain TECHNIQUE: Shoulder examined in 3 views FINDINGS: The humeral head articulates with the glenoid. The acromio-clavicular junction is hypertrophied with some inferior spurring which can contribute to impingement syndrome No acute fractures or dislocations are evident. Port is evident. A follow up study can be performed 7-10 days from acute trauma for continued pain. IMPRESSION: 1. No acute osseous abnormality right shoulder
== END | disposition home or self-care (01) ==
LOC: RAD 16:30
PROVIDERS: ATTEND Family Medicine
DX: M25.511 Pain in right shoulder (principal)

== ENCOUNTER → 2021-01-04 | Outpatient (CLI) | payer MEDICARE ==
--- NOTE | 2021-01-04 12:46 | MR ---
EXAMINATION TYPE: MR shoulder RT wo con DATE OF EXAM: 01/04/2021 COMPARISON: None HISTORY: Injured right shoulder 3 weeks ago, pain TECHNIQUE: Multiplanar, multisequence imaging of the right shoulder is performed without contrast. FINDINGS: Rotator Cuff: There is thinning of the supraspinatus tendon with mild abnormal signal intensity consi stent with tendinosis. No discrete tear is identified. The remaining rotator cuff tendons are intact. Acromioclavicular Joint: There is marked osteoarthritic change of the acromioclavicular joint resulti ng in significant shoulder impingement. Glenohumeral Joint: There is diffuse complex signal in the superior cartilaginous labrum suggesting t he presence of a tear. Post intra-articular gadolinium MRI is recommended for further evaluation. Biceps Tendon: The long head of biceps is in normal location within bicipital groove. There is a smal l amount of fluid within the biceps tendon indicating mild tendinosis. Bone marrow signal: No focal abnormal marrow signal is appreciated. Other: There is no subacromial or subdeltoid bursitis. IMPRESSION: 1. AC joint degeneration with shoulder impingement and thinning and tendinosis of the supraspinatus t endon. 2. Possible complex tear of the superior cartilaginous labrum. MRI arthrogram is recommended for furt her evaluation.
== END | disposition home or self-care (01) ==
LOC: RADMRIMAIN 11:43
PROVIDERS: ATTEND Family Medicine
DX: M19.011 Primary osteoarthritis, right shoulder (principal); S49.91XD Unspecified injury of right shoulder and upper arm, subsequent encounter

== ENCOUNTER → 2021-01-14 | Outpatient (CLI) | payer MEDICARE ==
[2021-01-14 22:19] LABS: Basophils # (A) 0.05 X 10*3/uL (0.00-0.10); Basophils % (A) 0.7 %; Eosinophils # (A) 0.16 X 10*3/uL (0.04-0.35); Eosinophils % (A) 2.1 %; HCT 39.1 % (39.6-50.0); HGB 12.9 g/dL (13.0-17.0); Lymphocytes # (A) 2.31 X 10*3/uL (0.90-5.00); Lymphocytes % (A) 30.2 %; MCH 32.7 pg (27.0-32.0); MCV 99.2 fL (80.0-97.0); Mean Platelet Volume 11.2 fL (9.5-12.2); Monocytes # (A) 0.63 X 10*3/uL (0.20-1.00); Monocytes % (A) 8.2 %; Neutrophils # (A) 4.46 X 10*3/uL (1.80-7.70); Neutrophils % (A) 58.3 %; Platelet Count 151 X 10*3/uL (140-440); RBC 3.94 X 10*6/uL (4.40-5.60); RDW 13.3 % (11.5-14.5); WBC 7.65 X 10*3/uL (4.50-10.00)
[2021-01-14 22:31] LABS: Alpha Fetoprotein, Tumor Mkr 4.1 ng/mL (0.0-7.9); Carcinoembryonic Antigen 3.9 ng/mL (0.0-4.9)
[2021-01-14 22:38] LABS: Albumin 3.4 g/dL (3.80-4.90); Albumin/Globulin Ratio 1.62 (1.60-3.17); Anion Gap 12.5 mmol/L (4.00-12.00); BUN/Creat Ratio 3.88 Ratio (12.00-20.00); Calcium 8.5 mg/dL (8.7-10.3); Carbon Dioxide 33.5 mmol/L (21.6-31.8); Globulin 2.1 g/dL (1.6-3.3); Non-African American GFR(CKD) 4.3 (60.0-200.0); Potassium 3.8 mmol/L (3.5-5.5); Total Bilirubin 0.2 mg/dL (0.2-1.2); Total Protein 5.5 g/dL (6.2-8.2)
== END | disposition home or self-care (01) ==
LOC: LABWHC1 16:20
PROVIDERS: ATTEND Family Medicine
DX: I15.0 Renovascular hypertension (principal); N19 Unspecified kidney failure; R63.4 Abnormal weight loss
CPT/HCPCS: 36415; 80053; 82105; 82378; 85025

== ENCOUNTER 2021-01-21 05:31 | Inpatient (IN) | payer MEDICARE ==
[2021-01-21] MEDS ORDERED: ONDANSETRON 4 MG/2 ML VIAL IVP STA (06:33)
[2021-01-21 06:42] LABS: Basophils % (A) 0 %; Eosinophils # (A) 0.1 k/uL (0-0.7); Eosinophils % (A) 0 %; HCT 43.7 % (39.0-53.0); HGB 14.8 gm/dL (13.0-17.5); Lymphocytes # (A) 0.7 k/uL (1.0-4.8); Lymphocytes % (A) 5 %; MCH 33.1 pg (25.0-35.0); MCHC 33.8 g/dL (31.0-37.0); Mean Platelet Volume 7.9; Monocytes # (A) 0.4 k/uL (0-1.0); Monocytes % (A) 3 %; Neutrophils # (A) 12.1 k/uL (1.3-7.7); Neutrophils % (A) 91 %; Platelet Count 154 k/uL (150-450); RBC 4.46 m/uL (4.30-5.90); RDW 13.9 % (11.5-15.5); WBC 13.3 k/uL (3.8-10.6)
[2021-01-21] MEDS: SODIUM CHLORIDE 0.9% 1,000 ML IV SCH (06:47)
[2021-01-21 06:53] LABS: Albumin 3.9 g/dL (3.5-5.0); Calcium 9.5 mg/dL (8.4-10.2); Magnesium 3.3 mg/dL (1.6-2.3); Phosphorus 3.5 mg/dL (2.5-4.5); Total Bilirubin 0.6 mg/dL (0.2-1.3); Total Protein 6.9 g/dL (6.3-8.2)
[2021-01-21 07:01] LABS: Prothrombin Time 10.6 sec (9.0-12.0)
[2021-01-21 07:05] LABS: Partial Thromboplastin Time 21.5 sec (22.0-30.0)
--- NOTE | 2021-01-21 07:16 | ED ---
Fall HPI - General Source: patient, EMS Mode of arrival: EMS <Kim Bahena - Last Filed: 01/21/21 09:27> <Darnell Garcia - Last Filed: 01/21/21 09:45> - General Chief Complaint: Fall Stated Complaint: Fall Time Seen by Provider: 01/21/21 06:15 - History of Present Illness Initial Comments: 75-year-old male presenting today for chief complaint of fall. Patient states that this morning patient fell he states he believes he hit his head he denies loss of conscious. Patient states he has some mild neck pain but has been present for 3 weeks since his last fall 3 weeks ago when he fell onto the [place] door he states he also had shoulder pain at that time. Patient states that overall the neck and shoulder have been improving. Patient denies headache visual changes/loss, speech changes, localized weakness or sensation deficits of face, chest, abdomen, back or extremities, he states he has been vomiting for the past 3-4 days. patient denies fevers, abdominal pain, constipation. Patient denies urinary symptoms> patient denies back or hip pain. Denies LE injury. Patient denies syncope/chest pain, dyspnea, leg swelling. Patient states he has felt weak all over which is why he believes he fell. No additional complaints pT i c-collar on arrival Delay in picking up patient/care as my shift started at 6AM and patient had not been evaluated at this time. (Kim Bahena) - Related Data Home Medications Medication Instructions Recorded Confirmed Atorvastatin [Lipitor] 80 mg PO DAILY 01/12/19 01/21/21 Calcium Acetate [Phoslo] 667 mg PO AC-TID 08/28/20 01/21/21 HYDROcodone/APAP 5-325MG [[place] 1 tab PO Q6H PRN 01/21/21 01/21/21 5-325] Metoprolol Succinate (ER) [Toprol 50 mg PO DAILY 01/21/21 01/21/21 Xl] Allergies Allergy/AdvReac Type Severity Reaction Status Date / Time heparin Allergy Severe LARRY Verified 01/21/21 08:50 cyclobenzaprine Allergy Rash/Hives Verified 01/21/21 08:50 [From Flexeril] Review of Systems ROS Other: All systems not noted in ROS Statement are negative. <Kim Bahena - Last Filed: 01/21/21 09:27> ROS Other: All systems not noted in ROS Statement are negative. <Darnell Garcia - Last Filed: 01/21/21 09:45> ROS Statement: Those systems with pertinent positive or pertinent negative responses have been documented in the HPI. Past Medical History Past Medical History: Hypertension, Renal Disease Additional Past Medical History / Comment(s): AAA, peritoneal dialysis port daily History of Any Multi-Drug Resistant Organisms: None Reported Past Surgical History: Cholecystectomy, Hernia Repair Additional Past Surgical History / Comment(s): AAA stent placement, right inguinal hernia repair, peritoneal dialysis placement Past Anesthesia/Blood Transfusion Reactions: No Reported Reaction Past Psychological History: No Psychological Hx Reported Smoking Status: Former smoker - Past Family History Sister(s) Family Medical History: Cancer, Myocardial Infarction ([place]) Additional Family Medical History / Comment(s): esophageal ca Brother(s) Family Medical History: Pneumonia <Kim Bahena - Last Filed: 01/21/21 09:27> General Exam <Kim Bahena - Last Filed: 01/21/21 09:27> - General Exam Comments Initial Comments: General: The patient is awake and alert, in no distress, but is actively vomiting Eye: +3 mm pupils are equal, round and reactive to light, extra-ocular movements are intact. No nystagmus. There is normal conjunctiva bilaterally. No signs of icterus. Ears, nose, mouth and throat: There are moist mucous membranes and no oral lesions. No raccoon no vital sign, TM WNL and EAC Neck: The neck is supple, there is no tenderness or JVD. No midline consultation of the cervical spine Cardiovascular: There is a regular rate and rhythm. No murmur, rub or gallop is appreciated. Respiratory: Lungs are clear to auscultation, respirations are non-labored, breath sounds are equal. No wheezes, stridor, rales, or rhonchi. Gastrointestinal: Soft, non-distended, non-tender abdomen without masses or organomegaly noted. There is no rebound or guarding present. No CVA tenderness. Musculoskeletal: Normal ROM but tenderness of the right shoulder, remaining extremity joints full ROM. Strength 5/5. Sensation intact. Radial and DP pulses equal bilaterally 2+. Neurological: A&O x 3. CN II-XII intact, There are no obvious motor or sensory deficits. Coordination appears grossly intact. Speech is normal. Skin: Skin is warm and dry and no rashes or lesions are noted. Psychiatric: Cooperative, appropriate mood & affect, normal judgment. (Kim Bahena) Course <Darnell Garcia - Last Filed: 01/21/21 09:45> Vital Signs 01/21/21 06:00 Temperature 97.0 F L Pulse Rate 98 Respiratory 17 Rate Blood Pressure 118/82 O2 Sat by Pulse 98 Oximetry - Reevaluation(s) Reevaluation #1: 01/21/21 09:45 PA supervision: I did personally evaluate the patient did present with complaints of a fall also is had abdominal pain for the past 5 days. He was found have pancreatitis as well as worsening kidney function and evaluation. CAT scan showed a small amount likely free air in the abdomen on the basis of the catheter for dialysis. Discussed the findings with the patient family as well as with Dr. Starr. The patient will be admitted with GI and nephrology consultation. (Darnell Garcia) Medical Decision Making - Lab Data Result diagrams: 01/21/21 06:30 01/21/21 06:30 <Kim Bahena - Last Filed: 01/21/21 09:27> - Lab Data Result diagrams: 01/21/21 06:30 01/21/21 06:30 <Darnell Garcia - Last Filed: 01/21/21 09:45> - Medical Decision Making 75-year-old presented for fall. vomiting on arrival but states that it is not new and ongoing x 4-5 days. vomiting controlled with zofran. K+ low. Cr high (home diaylsis patient, states compliant). Abdomen is nontender to very deep p alpation. Lipase significnatly elevated concerning for acute pancreatitis. ON CT AAA is enlarged, it is noncontrast study therefore radiology cannot r/o endoleak. HgB stable. no pulsatile masses or pulses deficits. Patient has free air on CXR, but radiologist Amber Sloan states he feels this is most likely secondary to the catheter.CT brain c-spine (-). Patient case discussed with Amber Garcia who evaluated patient. He is agreeable to admission, reviewed labs/current orders. Dr Garcia spoke with Dr. Starr who accepted admission. GI and nephrology on consultation. (Kim Bahena) - Lab Data Lab Results 01/21/21 01/21/21 01/21/21 Range/Units 06:30 06:30 06:30 WBC 13.3 H (3.8-10.6) k/uL RBC 4.46 (4.30-5.90) m/uL Hgb 14.8 (13.0-17.5) gm/dL Hct 43.7 (39.0-53.0) % MCV 98.0 (80.0-100.0) fL MCH 33.1 (25.0-35.0) pg MCHC 33.8 (31.0-37.0) g/dL RDW 13.9 (11.5-15.5) % Plt Count 154 (150-450) k/uL MPV 7.9 Neutrophils % 91 % Lymphocytes % 5 % Monocytes % 3 % Eosinophils % 0 % Basophils % 0 % Neutrophils # 12.1 H (1.3-7.7) k/uL Lymphocytes # 0.7 L (1.0-4.8) k/uL Monocytes # 0.4 (0-1.0) k/uL Eosinophils # 0.1 (0-0.7) k/uL Basophils # 0.0 (0-0.2) k/uL PT 10.6 (9.0-12.0) sec INR 1.0 (<1.2) APTT 21.5 L (22.0-30.0) sec Sodium 137 (137-145) mmol/L Potassium 2.1 L* (3.5-5.1) mmol/L Chloride 89 L (98-107) mmol/L Carbon Dioxide 30 (22-30) mmol/L Anion Gap 18 mmol/L BUN 49 H (9-20) mg/dL Creatinine 10.48 H* (0.66-1.25) mg/dL Est GFR (CKD-EPI)AfAm 5 (>60 ml/min/1.73 sqM) Est GFR (CKD-EPI)NonAf 4 (>60 ml/min/1.73 sqM) Glucose 179 H (74-99) mg/dL Lactic Ac Sepsis Rflx Plasma Lactic Acid Victor Hugo (0.7-2.0) mmol/L Calcium 9.5 (8.4-10.2) mg/dL Phosphorus 3.5 (2.5-4.5) mg/dL Magnesium 3.3 H (1.6-2.3) mg/dL Total Bilirubin 0.6 (0.2-1.3) mg/dL AST 39 (17-59) U/L ALT 31 (4-49) U/L Alkaline Phosphatase 96 (38-126) U/L Total Protein 6.9 (6.3-8.2) g/dL Albumin 3.9 (3.5-5.0) g/dL Amylase 639 H* (30-110) U/L Lipase 3074 H (23-300) U/L 01/21/21 01/21/21 Range/Units 06:30 07:16 WBC (3.8-10.6) k/uL RBC (4.30-5.90) m/uL Hgb (13.0-17.5) gm/dL Hct (39.0-53.0) % MCV (80.0-100.0) fL MCH (25.0-35.0) pg MCHC (31.0-37.0) g/dL RDW (11.5-15.5) % Plt Count (150-450) k/uL MPV Neutrophils % % Lymphocytes % % Monocytes % % Eosinophils % % Basophils % % Neutrophils # (1.3-7.7) k/uL Lymphocytes # (1.0-4.8) k/uL Monocytes # (0-1.0) k/uL Eosinophils # (0-0.7) k/uL Basophils # (0-0.2) k/uL PT (9.0-12.0) sec INR (<1.2) APTT (22.0-30.0) sec Sodium (137-145) mmol/L Potassium (3.5-5.1) mmol/L Chloride (98-107) mmol/L Carbon Dioxide (22-30) mmol/L Anion Gap mmol/L BUN (9-20) mg/dL Creatinine (0.66-1.25) mg/dL Est GFR (CKD-EPI)AfAm (>60 ml/min/1.73 sqM) Est GFR (CKD-EPI)NonAf (>60 ml/min/1.73 sqM) Glucose (74-99) mg/dL Lactic Ac Sepsis Rflx Y Plasma Lactic Acid Victor Hugo 4.6 H* (0.7-2.0) mmol/L Calcium (8.4-10.2) mg/dL Phosphorus (2.5-4.5) mg/dL Magnesium (1.6-2.3) mg/dL Total Bilirubin (0.2-1.3) mg/dL AST (17-59) U/L ALT (4-49) U/L Alkaline Phosphatase (38-126) U/L Total Protein (6.3-8.2) g/dL Albumin (3.5-5.0) g/dL Amylase (30-110) U/L Lipase (23-300) U/L Disposition Is patient prescribed a controlled substance at d/c from ED?: No Time of Disposition: :21 Decision to Admit Reason: Admit from EC Decision Date: 01/21/21 Decision Time: : <Kim Bahena - Last Filed: 01/21/21 09:27> <Darnell Garcia - Last Filed: 01/21/21 09:45> Clinical Impression: Pneumoperitoneum, ESRD (end stage renal disease), Dialysis patient, Vomiting, Pancreatitis, Fall, Right clavicle fracture, AAA (abdominal aortic aneurysm), Lactic acid acidosis, Hypokalemia Disposition: ADMITTED IP TO THIS HOSP Condition: Poor Referrals: Sebas Garza Jr, [Primary Care Provider] - 1-2 days
[2021-01-21 07:24] LABS: Potassium 2.1 mmol/L (3.5-5.1)
[2021-01-21] MEDS ORDERED: POTASSIUM CHLORIDE ER 20 MEQ TAB.ER PO STA ×2 (07:26→21:11)
[2021-01-21] MEDS ORDERED: POTASSIUM CHLORIDE 20 MEQ in WATER FOR INJECTION 1 100ML.BAG IVPB STA (07:26)
--- NOTE | 2021-01-21 08:41 | CT ---
EXAMINATION TYPE: CT brain theresa vo con DATE OF EXAM: 01/21/2021 COMPARISON: CT brain dated 08/11/2011 HISTORY: fall, trauma and pain CT DLP: 1243 mGycm Automated exposure control for dose reduction was used. TECHNIQUE: CT scan of the head and cervical spine are performed without contrast. FINDINGS: There is no acute intracranial hemorrhage, mass effect, or midline shift identified. The ventricles and sulci are within normal limits in size. Periventricular white matter shows patchy lo w attenuation. There are cerebral vascular calcifications. The globes are intact and the visualized s inuses are clear. Cortical atrophy is present as on prior exam. Cervical spine is visualized in its entirety from C1 through upper thoracic levels and demonstrates r etrolisthesis grade 1 C3-4, C4-5, C5-6, there is associated loss of disc height, spondylosis, facet a rthropathy change. Multilevel foraminal encroachment is present. Without evidence of acute fracture o r dislocation. Prevertebral soft tissue appears within normal limits. The C1-C2 articulation is unr emarkable. Medial aspect of the right clavicle shows a comminuted fracture, suspected callus formati on. IMPRESSION: 1. There is no acute fracture or dislocation evident in the cervical spine. 2. No acute intracranial hemorrhage, mass effect, or midline shift is seen. 3. Comminuted medial right clavicular fracture of questionable age. Additional findings above.
--- NOTE | 2021-01-21 08:48 | CT ---
EXAMINATION TYPE: CT abdomen pelvis wo con DATE OF EXAM: 01/21/2021 COMPARISON: CT 07/12/2020 HISTORY: nausea and vomiting CT DLP: 400.7 mGycm Automated exposure control for dose reduction was used. TECHNIQUE: Helical acquisition of images from the lung bases through the pelvis. FINDINGS: Hiatal hernia with partial intrathoracic stomach noted. Lack of intravenous contrast could compromise sensitivity of the exam. There is a catheter present in the right lower quadrant and coile d within the right hemiabdomen. Some fluid is present coursing along the gastroesophageal junction at the paraesophageal hernia. LUNG BASES: No significant abnormality is appreciated. AORTA: Aortic stent graft is in place. Transverse dimension in the infrarenal abdominal aorta measur es approximately 7.9 cm, previous exam measured 7.7 cm. Heterogeneous density is present within the a neurysm sac as well as some focal wall calcification, may be plaque calcification on axial image 42 a lso seen which is medial to the peripheral aspect of the aneurysm but stable. LIVER/GB: No significant abnormality is appreciated. PANCREAS: No significant abnormality is seen. SPLEEN: No significant abnormality is seen. ADRENALS: No significant abnormality is seen. KIDNEYS: Atrophic, right kidney has decreased in size in the interval, right renal artery stent is in place as is a left, left kidney is also decreased in size in the interval. REPRODUCTIVE ORGANS: There are some prostate calcifications.. URINARY BLADDER: No significant abnormality is seen. BOWEL: No significant abnormality is seen. FREE AIR: No Free Air is visible. ASCITES: Ascites is moderate. PELVIC ADENOPATHY: None visualized. RETROPERITONEAL ADENOPATHY: No Retroperitoneal Adenopathy visible. OSSEOUS STRUCTURES: 0 some degenerative disc changes are present in the visualized spine, degenerati ve changes suspected at the sacroiliac joints. IMPRESSION: SLIGHT INTERVAL GROWTH OF PATIENT'S ABDOMINAL AORTIC ANEURYSM, ENDOLEAK IS NOT EXCLUDED. Atrophic kid neys, ascites. Postprocedural changes.
--- NOTE | 2021-01-21 09:19 | XR ---
EXAMINATION TYPE: XR chest 2V DATE OF EXAM: 01/21/2021 COMPARISON: Chest x-ray dated 08/06/2020, CT 01/21/2021 HISTORY: Trauma and pain TECHNIQUE: Frontal and lateral views of the chest are obtained. FINDINGS: The right sided central venous catheter has been removed. There is eventration of the righ t hemidiaphragm. There is pneumoperitoneum. Postop changes are noted to the aorta. Mediastinal silhou ette within normal limits. There is a paraesophageal hernia with partial intrathoracic stomach. IMPRESSION: Pneumoperitoneum. Case discussed with Kim at the time of interpretation.
--- NOTE | 2021-01-21 09:23 | XR ---
Right shoulder HISTORY: Trauma 3 weeks prior, pain 3 views of the right shoulder correlation prior exam 12/16/2020 Arthropathy present at the acromion clavicular joint. There is a distal acromial spur. Alignment is m aintained, bone mineralization is reduced. No dislocation. There are overlying artifacts. Some spurri ng suspected at the glenohumeral joint. Right lung apex as visualized is normal. IMPRESSION: No acute fracture or dislocation. Osteoarthritis.
[2021-01-21] MEDS ORDERED: PIPERACILLIN-TAZOBACTAM 3.375 GM in SODIUM CHLORIDE 0.9% 100 ML IVPB STA (09:25)
--- NOTE | 2021-01-21 10:29 | US ---
EXAMINATION TYPE: US abdomen limited DATE OF EXAM: 01/21/2021 COMPARISON: CT CLINICAL HISTORY: pancreatitis. Abnormal labs EXAM MEASUREMENTS: Liver Length: 13.2 cm CBD: 0.7 cm Right Kidney: 6.3 x 3.2 x 2.8 cm Pancreas: 2mm duct visualized/ only partial visualization Liver: Small in size, lobulated contour Gallbladder: Surgically absent Evidence for sonographic Morillo's sign: No CBD: wnl for post sam Right Kidney: Atrophic in appearance Moderate ascites present as visualized on CT IMPRESSION: Ascites. Some limitations the exam. Post cholecystectomy. Correlate for possible cirrhosi s. Right renal atrophy.
[2021-01-21] MEDS: PANTOPRAZOLE 40 MG/10 ML VIAL IVP SCH (13:41)
[2021-01-21] MEDS: METOPROLOL SUCCINATE (ER) 50 MG TAB.ER.24H PO SCH (13:45)
--- NOTE | 2021-01-21 13:57 | P.HPIM ---
History of Present Illness H&P Date: 01/21/21 Chief Complaint: Status post fall, abdominal pain This is a 75-year-old gentleman with past medical history of hypertension, end- stage renal disease on peritoneal dialysis, abdominal aortic aneurysm-status post stent placement, bilateral renal artery stents, moderate mitral r egurgitation,former nicotine dependence prided into the ER via EMS status post fall. He reports standing up at the sink in water and the next thing he knew, he was waking up on the floor. Denies incontinence of urine or bowel movement, believes he hit his head. Reports mid epigastric abdominal pain accompanied by nausea and vomiting 3 days. Currently no abdominal pain, nausea and vomiting have responded to Zofran. Reports neck and right shoulder pain that has been present for about 3 weeks secondary to prior fall. Denies fevers, dyspnea. Denies lightheadedness, dizziness or focal deficits. Denies back pain. Denies chest pain, palpitations or shortness of breath. Worsening renal function. Reports compliant with his peritoneal dialysis. Last peritoneal dialysis was last night.Patient initially was scheduled today with Dr. Godwin for endoscopy procedure related to unexplained 15-20 pound weight loss over the last few months.Vital signs stable, maintaining O2 sats in the 90s on room air.Afebrile, WBC 13.3. Hemoglobin 14.8, platelets 154, INR 1. Sodium 137, potassium 2.9 BUN 49, creatinine 10.48. Magnesium 3.3 Plasma lactic acid on admission 4.6, with IV fluid hydration down to 2.8 T bili, LFTs within normal limits. Amylase 639, lipase 2074 Positive for coronavirus. Right shoulder x-ray reporting no acute fracture or dislocation, osteoarthritis( history of trauma 3 weeks prior). Head/C-spine CT reported No acute fracture or dislocation of the C-spine, no acute intracranial hemorrhage, mass effect or midline shift, comminuted Medial right clavicular fracture of questionable age. Chest x-ray reporting pneumoperitoneum, para esophageal hernia with partial intrathoracic stomach. Abdominal ultrasound reporting moderate ascites, only partial visualization of pancreas, possible cirrhosis, right renal atrophy. Abdominal pelvis CT reported slight interval growth of abdominal aortic aneurysm, and endoleak not excluded, atrophic kidneys, ascites, postprocedural changes. Review of Systems ROS Statement: Those systems with pertinent positive or pertinent negative responses have been documented in the HPI. ROS Other: All systems not noted in ROS Statement are negative. Past Medical History Past Medical History: Hypertension, Renal Disease Additional Past Medical History / Comment(s): AAA, peritoneal dialysis port daily History of Any Multi-Drug Resistant Organisms: None Reported Past Surgical History: Cholecystectomy, Hernia Repair Additional Past Surgical History / Comment(s): AAA stent placement, right inguinal hernia repair, peritoneal dialysis placement Past Anesthesia/Blood Transfusion Reactions: No Reported Reaction Past Psychological History: No Psychological Hx Reported Smoking Status: Former smoker - Past Family History Sister(s) Family Medical History: Cancer, Myocardial Infarction ([place]) Additional Family Medical History / Comment(s): esophageal ca Brother(s) Family Medical History: Pneumonia Medications and Allergies Home Medications Medication Instructions Recorded Confirmed Type Atorvastatin [Lipitor] 80 mg PO DAILY 01/12/19 01/21/21 History Calcium Acetate [Phoslo] 667 mg PO AC-TID 08/28/20 01/21/21 History HYDROcodone/APAP 5-325MG [[place] 1 tab PO Q6H PRN 01/21/21 01/21/21 History 5-325] Metoprolol Succinate (ER) [Toprol 50 mg PO DAILY 01/21/21 01/21/21 History Xl] Allergies Allergy/AdvReac Type Severity Reaction Status Date / Time heparin Allergy Severe LARRY Verified 01/21/21 08:50 cyclobenzaprine Allergy Rash/Hives Verified 01/21/21 08:50 [From Flexeril] Physical Exam Vitals: Vital Signs Temp Pulse Resp BP Pulse Ox 01/21/21 10:05 85 18 159/89 96 01/21/21 06:00 97.0 F L 98 17 118/82 98 Intake and Output 01/20/21 01/21/21 01/21/21 22:59 06:59 14:59 Other: Weight 48.988 kg - Exam GENERAL: Sitting up on stretcher, no acute distress HEAD: Atraumatic, normocephalic. EYES: Pupils equal round and reactive to light, sclera anicteric, conjunctiva normal. ENT:nares patent, oropharynx clear without exudates. Oral mucosa dry. NECK: Normal range of motion, supple without lymphadenopathy or JVD, no thyromegaly. LUNGS: Nonlabored, Essentially clear. Diminished throughout . No wheezes or rhonchi. HEART: Regular rate and rhythm without murmurs, rubs or gallops.S1S2 Normal ABDOMEN: Soft, nondistended, nontender, normoactive bowel sounds. No guarding, no rebound. No masses appreciated. EXTREMITIES: Normal range of motion, no edema, No clubbing or cyanosis. NEUROLOGICAL: Cranial nerves II through XII grossly intact. No focal deficits . SKIN: Warm, Dry, normal turgor, no rashes noted. Results CBC & Chem 7: 01/21/21 06:30 01/21/21 06:30 Labs: Abnormal Lab Results - Last 24 Hours (Table) 01/21/21 01/21/21 01/21/21 Range/Units 06:30 06:30 06:30 WBC 13.3 H (3.8-10.6) k/uL Neutrophils # 12.1 H (1.3-7.7) k/uL Lymphocytes # 0.7 L (1.0-4.8) k/uL APTT 21.5 L (22.0-30.0) sec Potassium 2.1 L* (3.5-5.1) mmol/L Chloride 89 L (98-107) mmol/L BUN 49 H (9-20) mg/dL Creatinine 10.48 H* (0.66-1.25) mg/dL Glucose 179 H (74-99) mg/dL Plasma Lactic Acid Victor Hugo (0.7-2.0) mmol/L Magnesium 3.3 H (1.6-2.3) mg/dL Amylase 639 H* (30-110) U/L Lipase 3074 H (23-300) U/L Coronavirus (PCR) (Not Detectd) 01/21/21 01/21/21 01/21/21 Range/Units 06:30 09:46 10:05 WBC (3.8-10.6) k/uL Neutrophils # (1.3-7.7) k/uL Lymphocytes # (1.0-4.8) k/uL APTT (22.0-30.0) sec Potassium (3.5-5.1) mmol/L Chloride (98-107) mmol/L BUN (9-20) mg/dL Creatinine (0.66-1.25) mg/dL Glucose (74-99) mg/dL Plasma Lactic Acid Victor Hugo 4.6 H* 2.8 H* (0.7-2.0) mmol/L Magnesium (1.6-2.3) mg/dL Amylase (30-110) U/L Lipase (23-300) U/L Coronavirus (PCR) Detected A (Not Detectd) Assessment and Plan Assessment: -Abdominal pain, status post fall, acute pancreatitis -Dehydration secondary to the above -Lactic acidosis -COVID-19 -Severe hypokalemia -Acute on chronic, end-stage renal disease, on PD -Syncope, etiology unclear, suspect multifactorial ,related to all the above, workup in progress. -Pneumoperitoneum, possibly related to peritoneal dialysis catheter, Esophageal hernia with partial intrathoracic stomach. -Right shoulder and neck pain of 3 weeks status post prior fall, comminuted f racture of the medial aspect of right clavicle per CT -Weight loss of 15-20 pounds over the last few months, the etiology unclear. Initially scheduled outpatient for endoscopy workup with Dr. Godwin. - History of Bilateral renal artery stents 2018 , revascularization unsuccessful on last admission -Acute hypoxic respiratory failure, secondary to the above and acute on chronic CHF exacerbation, systolic dysfunction EF 45-50%. -Hypertension -Anemia of chronic disease, iron deficient -AAA, status post stent placement, slight interval growth, possible endoleak not excluded as per CT, 7.9 cm(previous exam measured 7.7 cm) -Former nicotine dependence -Moderate mitral regurgitation -Mild pulmonary hypertension -History of Nonspecific 12 x 0.6 cm lung opacity, follow-up OP rec. Plan: Continue on current medication regime ,monitoring and symptomatic treatment. IV Fluid hydration. Potassium replacement in progress. Follow up potassium level at 1600. Surgery, Nephrology, GI, surgery consults in place, recommendations pending. Orthostatic vital signs every shift. The impression and plan of care has been dictated as directed. : I performed a history and examination of this patient, discussed the same with the dictator. I agree with the dictator's note ,documented as a scribe. Any additional findings or plans will be noted.
--- NOTE | 2021-01-21 18:58 | P.GSCN ---
History of Present Illness Consult date: 01/21/21 Reason for Consult: Abdominal pain History of present illness: 75-year-old male known to our service. Patient with diagnosis of renal failure within the last year or so. Underwent peritoneal dialysis catheter placement by me and subsequent revision in 2019. Was going to be seen today in endoscopy for upper and lower endoscopy because of patient's significant weight loss over the last 2 months. He thinks he has lost 20-30 pounds in the last 2 months. Fairly this morning he was brushing his teeth when he blacked out and fell to the wi oor. Complained of mild shoulder and neck pain after that. Went to the ER for evaluation. Patient says over the last 3-4 days he has had intermittent episodes of vomiting and dry heaves. Bilious in nature. Mild upper abdominal discomfort. In the ER the patient was having no discomfort. Patient has been significantly weak. No rectal bleeding or melena. Last colonoscopy many years ago. In the ER the patient's labs revealed an elevated lactic acid, elevated amylase and lipase, white blood cell count 13.3, calcium 2.1, elevated BUN and creatinine. The patient's lactic acid has now normalized. He was also found to be Covid positive one checked. Patient denies shortness of breath or chest pain. CAT scan shows free fluid and pneumoperitoneum consistent with his indwelling PD cath. Ultrasound showed ascites and possible cirrhosis. No known liver disease. Review of Systems The patient denies any acute changes in vision or hearing, no dysphagia or odyn ophagia, no chest pain or shortness of breath, no dysuria or hematuria, no headache, no runny nose, no rectal bleeding or melena Past Medical History Past Medical History: Hypertension, Renal Disease Additional Past Medical History / Comment(s): AAA, peritoneal dialysis port daily History of Any Multi-Drug Resistant Organisms: None Reported Past Surgical History: Cholecystectomy, Hernia Repair Additional Past Surgical History / Comment(s): AAA stent placement, right inguinal hernia repair, peritoneal dialysis placement Past Anesthesia/Blood Transfusion Reactions: No Reported Reaction Past Psychological History: No Psychological Hx Reported Smoking Status: Former smoker Past Alcohol Use History: None Reported Additional Past Alcohol Use History / Comment(s): smoked 3 years ,quit 30 years ago Past Drug Use History: None Reported - Past Family History Sister(s) Family Medical History: Cancer, Myocardial Infarction (SD) Additional Family Medical History / Comment(s): esophageal ca Brother(s) Family Medical History: Pneumonia Medications and Allergies Home Medications Medication Instructions Recorded Confirmed Type Atorvastatin [Lipitor] 80 mg PO DAILY 01/12/19 01/21/21 History Calcium Acetate [Phoslo] 667 mg PO AC-TID 08/28/20 01/21/21 History HYDROcodone/APAP 5-325MG [[place] 1 tab PO Q6H PRN 01/21/21 01/21/21 History 5-325] Metoprolol Succinate (ER) [Toprol 50 mg PO DAILY 01/21/21 01/21/21 History Xl] Allergies Allergy/AdvReac Type Severity Reaction Status Date / Time heparin Allergy Severe LARRY Verified 01/21/21 08:50 cyclobenzaprine Allergy Rash/Hives Verified 01/21/21 08:50 [From Flexeril] Surgical - Exam Vital Signs Temp Pulse Resp BP Pulse Ox 97.0 F L 98 17 118/82 98 01/21/21 06:00 01/21/21 06:00 01/21/21 06:00 01/21/21 06:00 01/21/21 06:00 Physical exam: General: Elderly white male, appears malnourished, when, in no distress HEENT: Normocephalic, sclerae nonicteric Abdomen: Nontender, nondistended, PD cath noted Extremities: No edema Neuro: Alert and oriented Results - Labs 01/21/21 06:30 01/21/21 16:36 Abnormal Lab Results - Last 24 Hours (Table) 01/21/21 01/21/21 01/21/21 Range/Units 06:30 06:30 06:30 WBC 13.3 H (3.8-10.6) k/uL Neutrophils # 12.1 H (1.3-7.7) k/uL Lymphocytes # 0.7 L (1.0-4.8) k/uL APTT 21.5 L (22.0-30.0) sec Potassium 2.1 L* (3.5-5.1) mmol/L Chloride 89 L (98-107) mmol/L BUN 49 H (9-20) mg/dL Creatinine 10.48 H* (0.66-1.25) mg/dL Glucose 179 H (74-99) mg/dL Plasma Lactic Acid [place] (0.7-2.0) mmol/L Magnesium 3.3 H (1.6-2.3) mg/dL Amylase 639 H* (30-110) U/L Lipase 3074 H (23-300) U/L Coronavirus (PCR) (Not Detectd) 01/21/21 01/21/21 01/21/21 Range/Units 06:30 09:46 10:05 WBC (3.8-10.6) k/uL Neutrophils # (1.3-7.7) k/uL Lymphocytes # (1.0-4.8) k/uL APTT (22.0-30.0) sec Potassium (3.5-5.1) mmol/L Chloride (98-107) mmol/L BUN (9-20) mg/dL Creatinine (0.66-1.25) mg/dL Glucose (74-99) mg/dL Plasma Lactic Acid [place] 4.6 H* 2.8 H* (0.7-2.0) mmol/L Magnesium (1.6-2.3) mg/dL Amylase (30-110) U/L Lipase (23-300) U/L Coronavirus (PCR) Detected A (Not Detectd) 01/21/21 Range/Units 16:36 WBC (3.8-10.6) k/uL Neutrophils # (1.3-7.7) k/uL Lymphocytes # (1.0-4.8) k/uL APTT (22.0-30.0) sec Potassium 3.2 L (3.5-5.1) mmol/L Chloride (98-107) mmol/L BUN (9-20) mg/dL Creatinine (0.66-1.25) mg/dL Glucose (74-99) mg/dL Plasma Lactic Acid [place] (0.7-2.0) mmol/L Magnesium (1.6-2.3) mg/dL Amylase (30-110) U/L Lipase (23-300) U/L Coronavirus (PCR) (Not Detectd) Diabetes panel 01/21/21 01/21/21 Range/Units 06:30 16:36 Sodium 137 (137-145) mmol/L Potassium 2.1 L* 3.2 L (3.5-5.1) mmol/L Chloride 89 L (98-107) mmol/L Carbon Dioxide 30 (22-30) mmol/L BUN 49 H (9-20) mg/dL Creatinine 10.48 H* (0.66-1.25) mg/dL Glucose 179 H (74-99) mg/dL Calcium 9.5 (8.4-10.2) mg/dL AST 39 (17-59) U/L ALT 31 (4-49) U/L Alkaline Phosphatase 96 (38-126) U/L Total Protein 6.9 (6.3-8.2) g/dL Albumin 3.9 (3.5-5.0) g/dL Calcium panel 01/21/21 Range/Units 06:30 Calcium 9.5 (8.4-10.2) mg/dL Phosphorus 3.5 (2.5-4.5) mg/dL Albumin 3.9 (3.5-5.0) g/dL Pituitary panel 01/21/21 01/21/21 Range/Units 06:30 16:36 Sodium 137 (137-145) mmol/L Potassium 2.1 L* 3.2 L (3.5-5.1) mmol/L Chloride 89 L (98-107) mmol/L Carbon Dioxide 30 (22-30) mmol/L BUN 49 H (9-20) mg/dL Creatinine 10.48 H* (0.66-1.25) mg/dL Glucose 179 H (74-99) mg/dL Calcium 9.5 (8.4-10.2) mg/dL Adrenal panel 01/21/21 01/21/21 Range/Units 06:30 16:36 Sodium 137 (137-145) mmol/L Potassium 2.1 L* 3.2 L (3.5-5.1) mmol/L Chloride 89 L (98-107) mmol/L Carbon Dioxide 30 (22-30) mmol/L BUN 49 H (9-20) mg/dL Creatinine 10.48 H* (0.66-1.25) mg/dL Glucose 179 H (74-99) mg/dL Calcium 9.5 (8.4-10.2) mg/dL Total Bilirubin 0.6 (0.2-1.3) mg/dL AST 39 (17-59) U/L ALT 31 (4-49) U/L Alkaline Phosphatase 96 (38-126) U/L Total Protein 6.9 (6.3-8.2) g/dL Albumin 3.9 (3.5-5.0) g/dL Assessment and Plan (1) Pancreatitis Narrative/Plan: 75-year-old male with intermittent episodes of nausea vomiting and epigastric pain. Elevated amylase and lipase. Pancreatitis may be etiology for patient's symptoms and presentation. Patient with profound hypokalemia although improved after electrolyte replacement. Suspect significant dehydration as the etiology for his syncopal episodes. We'll consider upper and lower endoscopy during this hospitalization since the patient already was taking a bowel cleanse. Repeat labs tomorrow. We'll follow closely with you. Current Visit: Yes Status: Acute Code(s): K85.90 - ACUTE PANCREATITIS WITHOUT NECROSIS OR INFECTION, UNSP SNOMED Code(s): 76859543
[2021-01-21] MEDS: DIALYSIS (PERIT 2.5%) 2,500 ML 62.5 G/2,500 ML BAG INTRAPERIT SCH (21:59)
[2021-01-21] MEDS ORDERED: DIALYSIS (PERIT 2.5%) 2,500 ML 62.5 G/2,500 ML BAG INTRAPERIT SCH (22:00)
[2021-01-21] MEDS: ONDANSETRON 4 MG/2 ML VIAL IVP PRN (23:21)
[2021-01-22] MEDS: SODIUM CHLORIDE 0.9% 1,000 ML IV SCH ×4 (01:31→17:06)
[2021-01-22] MEDS ORDERED: DIALYSIS (PERIT 1.5%) 2,500 ML 37.5 G/2,500 ML BAG INTRAPERIT SCH ×2 (04:00→12:00)
[2021-01-22 08:37] LABS: Calcium 8.1 mg/dL (8.4-10.2); Potassium 3.7 mmol/L (3.5-5.1)
[2021-01-22] MEDS: PANTOPRAZOLE 40 MG/10 ML VIAL IVP SCH ×2 (08:46→20:12)
[2021-01-22] MEDS: amLODIPine 5 MG TAB PO SCH (08:46)
[2021-01-22] MEDS: METOPROLOL SUCCINATE (ER) 50 MG TAB.ER.24H PO SCH (08:46)
[2021-01-22] MEDS: ASCORBIC ACID 500 MG TAB PO SCH (08:47)
[2021-01-22] MEDS: ZINC SULFATE 220 MG CAP PO SCH (08:47)
[2021-01-22] MEDS: CHOLECALCIFEROL 25 MCG (1000 IU) TABLET PO SCH (08:47)
[2021-01-22] MEDS: ATORVASTATIN 80 MG TAB PO SCH (08:47)
[2021-01-22] MEDS: ONDANSETRON 4 MG/2 ML VIAL IVP PRN ×3 (08:47→20:12)
--- NOTE | 2021-01-22 12:22 | P.PN ---
Subjective Progress Note Date: 01/22/21 Principal diagnosis: Abdominal pain patient feels better today. Still with mild upper abdominal discomfort. He had some dry heaves. No vomiting however. Labs are improved. No bowel movement. Objective - Vital Signs Vital signs: Vital Signs Temp 97.1 F L 01/22/21 10:28 Pulse 76 01/22/21 10:28 Resp 18 01/22/21 10:28 BP 156/80 01/22/21 10:28 Pulse Ox 91 L 01/22/21 10:28 Intake & Output 01/21/21 01/22/21 01/22/21 18:59 06:59 18:59 Intake Total 1050 420 Output Total 0 Balance 0 1050 420 Weight 48.988 kg 52.5 kg Intake: IV 1050 Sodium Chloride 0.9% 1, 1050 000 ml @ 60 mls/hr IV . [id number] [facility] Rx#:[id number] Oral 420 Output: Urine 0 Other: Voiding Method CAPD CAPD - Exam Abdomen: Soft, minimal epigastric tenderness, no rebound or guarding, catheter in place - Labs CBC & Chem 7: 01/21/21 06:30 01/22/21 07:14 Labs: Abnormal Lab Results - Last 24 Hours (Table) 01/21/21 01/22/21 Range/Units 16:36 07:14 Sodium 136 L (137-145) mmol/L Potassium 3.2 L (3.5-5.1) mmol/L Chloride 96 L (98-107) mmol/L BUN 61 H (9-20) mg/dL Creatinine 10.13 H* (0.66-1.25) mg/dL Calcium 8.1 L (8.4-10.2) mg/dL Amylase 422 H* (30-110) U/L Lipase 1045 H (23-300) U/L Assessment and Plan (1) Pancreatitis Narrative/Plan: Patient doing better today. Amylase and lipase are improved. Abdominal discomfort is improved as well. Spoke with nephrology. We'll try to proceed with upper and lower endoscopy tomorrow. Will provide soapsuds enemas to assist with clearance tomorrow morning. Current Visit: Yes Status: Acute Code(s): K85.90 - ACUTE PANCREATITIS WITHOUT NECROSIS OR INFECTION, UNSP SNOMED Code(s): 29109344
--- NOTE | 2021-01-22 15:02 | P.PN ---
Subjective Progress Note Date: 01/22/21 This is a 75-year-old gentleman with past medical history of hypertension, end- stage renal disease on peritoneal dialysis, abdominal aortic aneurysm-status post stent placement, bilateral renal artery stents, moderate mitral regurgitation,former nicotine dependence prided into the ER via EMS status post fall. He reports standing up at the sink in water and the next thing he knew, he was waking up on the floor. Denies incontinence of urine or bowel movement, believes he hit his head. Reports mid epigastric abdominal pain accompanied by nausea and vomiting 3 days. Currently no abdominal pain, nausea and vomiting have responded to Zofran. Reports neck and right shoulder pain that has been present for about 3 weeks secondary to prior fall. Denies fevers, dyspnea. Denies lightheadedness, dizziness or focal deficits. Denies back pain. Denies chest pain, palpitations or shortness of breath. Worsening renal function. Reports compliant with his peritoneal dialysis. Last peritoneal dialysis was last night.Patient initially was scheduled today with Dr. Godwin for endoscopy procedure related to unexplained 15-20 pound weight loss over the last few months.Vital signs stable, maintaining O2 sats in the 90s on room air.Afebrile, WBC 13.3. Hemoglobin 14.8, platelets 154, INR 1. Sodium 137, potassium 2.9 BUN 49, creatinine 10.48. Magnesium 3.3 Plasma lactic acid on admission 4.6, with IV fluid hydration down to 2.8 T bili, LFTs within normal limits. Amylase 639, lipase 2074 Positive for coronavirus. Right shoulder x-ray reporting no acute fracture or dislocation, osteoarthritis( history of trauma 3 weeks prior). Head/C-spine CT reported No acute fracture or dislocation of the C-spine, no acute intracranial hemorrhage, mass effect or midline shift, comminuted Medial right clavicular fracture of questionable age. Chest x-ray reporting pneumoperitoneum, para esophageal hernia with partial intrathoracic stomach. Abdominal ultrasound reporting moderate ascites, only partial visualization of pancreas, possible cirrhosis, right renal atrophy. Abdominal pelvis CT reported slight interval growth of abdominal aortic aneurysm, and endoleak not excluded, atrophic kidneys, ascites, postprocedural changes. 01/22/2021 maintained on IV fluid hydration, nausea 1 this morning-received Zofran, feeling better .received multiple potassium supplements, currently up to 3.7 . BUN 61, creatinine 10.13. Currently maintained on CAPD exchanges. Amylase and lipase trending down, 422 in 1045 evaluated by surgery, reviewed CT, reporting free fluid and pneumoperitoneum consistent with indwelling PD cath. Patient initially scheduled for EGD and colonoscopy yesterday and had been taking a bowel prep, surgery discussing proceeding with EGD/colonoscopy inpatient. Afebrile. Hypertensive. Objective - Vital Signs Vital signs: Vital Signs Temp 98.2 F 01/22/21 04:00 Pulse 81 01/22/21 04:00 Resp 16 01/22/21 04:00 BP 163/82 01/22/21 04:00 Pulse Ox 91 L 01/22/21 04:00 Intake & Output 01/21/21 01/22/21 01/22/21 18:59 06:59 18:59 Intake Total 1050 Output Total 0 Balance 0 1050 Weight 48.988 kg 52.5 kg Intake: IV 1050 Sodium Chloride 0.9% 1, 1050 000 ml @ 150 mls/hr IV . Q6H40M [facility] Rx#:[id number] Output: Urine 0 Other: Voiding Method CAPD - Exam - Exam GENERAL: Sitting up on stretcher, no acute distress HEAD: Atraumatic, normocephalic. EYES: Pupils equal round and reactive to light, sclera anicteric, conjunctiva normal. ENT:nares patent, oropharynx clear without exudates. Oral mucosa dry. NECK: Normal range of motion, supple without lymphadenopathy or JVD, no thyromegaly. LUNGS: Nonlabored, Essentially clear. Diminished throughout . No wheezes or rhonchi. HEART: Regular rate and rhythm without murmurs, rubs or gallops.S1S2 Normal ABDOMEN: Soft, nondistended, nontender, normoactive bowel sounds. No guarding, no rebound. No masses appreciated. EXTREMITIES: Normal range of motion, no edema, No clubbing or cyanosis. NEUROLOGICAL: Cranial nerves II through XII grossly intact. No focal deficits . SKIN: Warm, Dry, normal turgor, no rashes noted. - Labs CBC & Chem 7: 01/21/21 06:30 01/22/21 07:14 Labs: Abnormal Lab Results - Last 24 Hours (Table) 01/21/21 01/21/21 01/21/21 Range/Units 09:46 10:05 16:36 Sodium (137-145) mmol/L Potassium 3.2 L (3.5-5.1) mmol/L Chloride (98-107) mmol/L BUN (9-20) mg/dL Creatinine (0.66-1.25) mg/dL Plasma Lactic Acid Victor [place] 2.8 H* (0.7-2.0) mmol/L Calcium (8.4-10.2) mg/dL Amylase (30-110) U/L Lipase (23-300) U/L Coronavirus (PCR) Detected A (Not Detectd) 01/22/21 Range/Units 07:14 Sodium 136 L (137-145) mmol/L Potassium (3.5-5.1) mmol/L Chloride 96 L (98-107) mmol/L BUN 61 H (9-20) mg/dL Creatinine 10.13 H* (0.66-1.25) mg/dL Plasma Lactic Acid [place] (0.7-2.0) mmol/L Calcium 8.1 L (8.4-10.2) mg/dL Amylase 422 H* (30-110) U/L Lipase 1045 H (23-300) U/L Coronavirus (PCR) (Not Detectd) Assessment and Plan Assessment: -Abdominal pain, status post fall, acute pancreatitis -Dehydration secondary to the above -Lactic acidosis -COVID-19 -Severe hypokalemia -Acute on chronic, end-stage renal disease, on PD -Syncope, etiology unclear, suspect multifactorial ,related to all the above, workup in progress. -Pneumoperitoneum, related to peritoneal dialysis catheter as per surgery review of CT. -Right shoulder and neck pain of 3 weeks status post prior fall, comminuted fracture of the medial aspect of right clavicle per CT -Weight loss of 15-20 pounds over the last few months, the etiology unclear. Initially scheduled outpatient for endoscopy workup with Dr. Godwin. - History of Bilateral renal artery stents 2018 , revascularization unsuccessful on last admission -Acute hypoxic respiratory failure, secondary to the above -Chronic CHF exacerbation, systolic dysfunction EF 45-50%. -Hypertension -Anemia of chronic disease, iron deficient -AAA, status post stent placement, slight interval growth, possible endoleak not excluded as per CT, 7.9 cm(previous exam measured 7.7 cm) -Former nicotine dependence -Moderate mitral regurgitation -Mild pulmonary hypertension -History of Nonspecific 12 x 0.6 cm lung opacity, follow-up OP rec. Plan: Continue on current medication regime ,monitoring and symptomatic treatment. IV Fluid hydration. Orthostatic vital signs every shift. Close monitoring of electrolytes, renal function. Peritoneal dialysis as per nephrology. Norvasc added for better blood pressure control. EGD and colonoscopy as per surgery, tomorrow. The impression and plan of care has been dictated as directed. Dr.: I performed a history and examination of this patient, discussed the same with the dictator. I agree with the dictator's note ,documented as a scribe. Any additional findings or plans will be noted. The impression and plan of care has been dictated as directed. .: I performed a history and examination of this patient, discussed the same with the dictator. I agree with the dictator's note ,documented as a scribe. Any additional findings or plans will be noted.
--- NOTE | 2021-01-22 15:24 | CONS ---
CONSULTATION REASON FOR CONSULT: End-stage renal disease. HISTORY OF PRESENT ILLNESS: Patient is a 75-year-old male with end-stage renal disease, on peritoneal dialysis. Patient was admitted to the hospital with complaints of weight loss, not feeling well, increased weakness. He also had some abdominal pain. Patient states he has been doing his dialysis regularly. He was noted to have evidence of mild pancreatitis. Lipase was 3074, amylase 639. Abdominal CAT scan showed interval growth of abdominal aortic aneurysm. Otherwise, no other significant abnormality was noted. Patient denies any fevers, chills. No diarrhea. PAST MEDICAL HISTORY: End-stage renal disease, anemia of chronic disease, CKD mineral bone disorder, abdominal aortic aneurysm. PAST SURGICAL HISTORY: Cholecystectomy, right inguinal hernia repair, abdominal aortic stent placement, PD catheter placement. SOCIAL HISTORY: Patient is a former smoker. No history of drug abuse or alcohol abuse. MEDICATIONS: Medications prior to admission include Lipitor, PhosLo, [place], metoprolol. ALLERGIES: Allergies include HEPARIN, FLEXERIL. REVIEW OF SYSTEMS: As per HPI. Other systems negative. PHYSICAL EXAMINATION: On examination, patient is comfortable, awake, not in any acute distress. Blood pressure was 156/80, heart rate 80 per minute. He is afebrile. EXAMINATION OF THE HEART: S1, S2. EXAMINATION OF THE LUNGS: Bilateral breath sounds are heard. Abdomen is soft, nontender. Examination of lower extremities shows no evidence of edema. MEDICAL CASE MANAGER exam grossly intact. LABS: Labs show sodium 136, potassium 3.7, chloride 96, BUN 61, creatinine 10.1. Amylase 422, lipase 1045. Coronavirus positive. ASSESSMENT: 1. End-stage renal disease, on peritoneal dialysis. We will maintain 1.5% solution q.6 hours. 2. Positive coronavirus PCR with chest x-ray showing no significant infiltrate. 3. Severe weight loss scheduled for colonoscopy and endoscopy with surgery. 4. Pancreatitis. No significant obstruction noted on CT scan. No history of EtOH abuse. 5. Hypokalemia, status post replacement. PLAN: Decrease IV fluids, change dialysis to 1.5% solutions q.6 hours and follow up on the endoscopies. MMODL / IJN: [id number] /
[2021-01-22] MEDS ORDERED: 0.9% NACL WITH KCL 40 MEQ/L 1,000 ML IV SCH (16:00)
[2021-01-22] MEDS: DIALYSIS (PERIT 1.5%) 2,500 ML 37.5 G/2,500 ML BAG INTRAPERIT SCH ×2 (17:05→22:18)
[2021-01-22] MEDS ORDERED: DIALYSIS (PERIT 2.5%) 2,500 ML 62.5 G/2,500 ML BAG INTRAPERIT SCH (22:00)
[2021-01-23] MEDS: LACTATED RINGERS 1,000 ML IV SCH ×2 (00:59→18:19)
[2021-01-23] MEDS: ONDANSETRON 4 MG/2 ML VIAL IVP PRN (02:47)
[2021-01-23] MEDS: DIALYSIS (PERIT 1.5%) 2,500 ML 37.5 G/2,500 ML BAG INTRAPERIT SCH ×4 (04:11→22:30)
[2021-01-23] MEDS: HYDROcodone/APAP 5-325MG 1 EACH TAB PO PRN ×2 (04:41→11:21)
[2021-01-23] MEDS: SODIUM CHLORIDE 0.9% 1,000 ML IV SCH (04:48)
[2021-01-23] MEDS ORDERED: PANTOPRAZOLE 40 MG TABLET PO SCH (09:00)
--- NOTE | 2021-01-23 09:33 | P.CONS ---
History of Present Illness - Reason for Consult Consult date: 01/21/21 Pancreatitis Requesting physician: Shaq Starr - Chief Complaint Syncope - History of Present Illness 75-year-old male with a medical history significant for hypertension,CKD and hyperlipidemia who presented to the hospital after a syncopal episode. The patient had been scheduled for outpatient endoscopy with EGD and colonoscopy planned for evaluation of unintentional weight loss. The patient reporting a 20-30 pound weight loss over the past 2 months. However the patient had an episode of black L and fell on the floor. He presented for further evaluation. Computed tomography scan of the abdomen on presentation showed slight growth of a abdominal aortic aneurysm with endoleak not excluded and atrophic kidneys as well as ascites. Ultrasound of the abdomen were significant for surgically absent gallbladder with a small lobulated liver contour and ascites. The patient had been reporting vomiting since Wednesday with associated stomach pain. Today said no further vomiting and abdominal pain is improved. On presentation to the hospital laboratory evaluation was significant for WBC 13.3, hemoglobin 14.8, platelet 154,000 with amylase of 639 and lipase of 3074 and liver enzymes significant for total bilirubin 0.6, alkaline phosphatase 96, AST 39 and ALT 31. Patient has been receiving treatment for acute uncomplicated pancreatitis. Review of Systems REVIEW OF SYSTEMS: CONSTITUTIONAL: Denies any fevers, chills, or fatigue but patient has had 30 pounds of weight loss over the past few months. CARDIOVASCULAR: Denies any chest pain, palpitations high or low blood pressures, patient does report a syncopal episode. RESPIRATORY: Denies any shortness of breath, hemoptysis or cough. GENITOURINARY: No dysuria or hematuria, he does have history of chronic kidney disease. MUSCULOSKELETAL: No weakness reported. SKIN: Denies any new rashes or lesions, jaundice or pallor. PSYCHIATRIC: Denies any depression or anxiety. NEUROLOGY: Denies headache, denies any new focal deficits. EARS/NOSE/THROAT: No recent hearing change, congestion, nasal discharge or sore throat. EYES: No pain in eyes, discharge or change in vision. GASTROINTESTINAL: As per HPI. Past Medical History Past Medical History: Hypertension, Renal Disease Additional Past Medical History / Comment(s): AAA, peritoneal dialysis port daily History of Any Multi-Drug Resistant Organisms: None Reported Past Surgical History: Cholecystectomy, Hernia Repair Additional Past Surgical History / Comment(s): AAA stent placement, right inguinal hernia repair, peritoneal dialysis placement Past Anesthesia/Blood Transfusion Reactions: No Reported Reaction Past Psychological History: No Psychological Hx Reported Smoking Status: Former smoker - Past Family History Sister(s) Family Medical History: Cancer, Myocardial Infarction ([place]) Additional Family Medical History / Comment(s): esophageal ca Brother(s) Family Medical History: Pneumonia Medications and Allergies Home Medications Medication Instructions Recorded Confirmed Type Atorvastatin [Lipitor] 80 mg PO DAILY 01/12/19 01/21/21 History Calcium Acetate [Phoslo] 667 mg PO AC-TID 08/28/20 01/21/21 History HYDROcodone/APAP 5-325MG [[place] 1 tab PO Q6H PRN 01/21/21 01/21/21 History 5-325] Metoprolol Succinate (ER) [Toprol 50 mg PO DAILY 01/21/21 01/21/21 History Xl] Allergies Allergy/AdvReac Type Severity Reaction Status Date / Time heparin Allergy Severe LARRY Verified 01/21/21 08:50 cyclobenzaprine Allergy Rash/Hives Verified 01/21/21 08:50 [From Flexeril] Physical Exam Vitals: Vital Signs Temp Pulse Resp BP Pulse Ox 01/21/21 11:00 83 18 154/89 95 01/21/21 10:05 85 18 159/89 96 01/21/21 09:46 94 L 01/21/21 06:00 97.0 F L 98 17 118/82 98 Intake and Output 01/20/21 01/21/21 01/21/21 22:59 06:59 14:59 Other: Weight 48.988 kg On physical examination, patient appears comfortable in no apparent distress. HEAD: Normocephalic, atraumatic. EYES: No scleral icterus. No conjunctival injection. MOUTH: No lesions, tongue midline. NECK: Trachea midline, no gross abnormalities. CHEST: Clear to auscultation with no wheezing or rhonchi appreciated. HEART: Regular rate and rhythm. ABDOMEN: Soft, nontender to palpation. Bowel sounds are positive. No organomegaly. No guarding or rigidity. EXTREMITIES: No pedal edema. SKIN: No rashes, no jaundice. NEUROLOGIC: Alert and oriented x3. No focal deficits. Results CBC & Chem 7: 01/21/21 06:30 01/22/21 16:16 Labs: Abnormal Lab Results - Last 24 Hours (Table) 01/21/21 01/21/21 01/21/21 Range/Units 06:30 06:30 06:30 WBC 13.3 H (3.8-10.6) k/uL Neutrophils # 12.1 H (1.3-7.7) k/uL Lymphocytes # 0.7 L (1.0-4.8) k/uL APTT 21.5 L (22.0-30.0) sec Potassium 2.1 L* (3.5-5.1) mmol/L Chloride 89 L (98-107) mmol/L BUN 49 H (9-20) mg/dL Creatinine 10.48 H* (0.66-1.25) mg/dL Glucose 179 H (74-99) mg/dL Plasma Lactic Acid Victor Hugo (0.7-2.0) mmol/L Magnesium 3.3 H (1.6-2.3) mg/dL Amylase 639 H* (30-110) U/L Lipase 3074 H (23-300) U/L Coronavirus (PCR) (Not Detectd) 01/21/21 01/21/21 01/21/21 Range/Units 06:30 09:46 10:05 WBC (3.8-10.6) k/uL Neutrophils # (1.3-7.7) k/uL Lymphocytes # (1.0-4.8) k/uL APTT (22.0-30.0) sec Potassium (3.5-5.1) mmol/L Chloride (98-107) mmol/L BUN (9-20) mg/dL Creatinine (0.66-1.25) mg/dL Glucose (74-99) mg/dL Plasma Lactic Acid Victor Hugo 4.6 H* 2.8 H* (0.7-2.0) mmol/L Magnesium (1.6-2.3) mg/dL Amylase (30-110) U/L Lipase (23-300) U/L Coronavirus (PCR) Detected A (Not Detectd) US - abdomen: report reviewed (Ultrasound of the abdomen with findings of surgically absent gallbladder, lobulated liver with ascites.) Assessment and Plan (1) Pancreatitis Narrative/Plan: 75-year-old male with multiple medical comorbidities presenting after a episode of passing out. The patient had been prepping for an EGD and colonoscopy for evaluation of unintentional weight loss with approximately 30 pounds lost over the past few months. He had reported abdominal pain, nausea and vomiting over the few days prior to presentation. Patient had markedly elevated amylase and lipase 639 and 3074 on presentation and is currently being treated for acute on computed pancreatitis. Current Visit: Yes Status: Acute Code(s): K85.90 - ACUTE PANCREATITIS WITHOUT NECROSIS OR INFECTION, UNSP SNOMED Code(s): 00383154 (2) Vomiting Current Visit: Yes Status: Acute Code(s): R11.10 - VOMITING, UNSPECIFIED SNOMED Code(s): 982978305 Plan: Supportive care Continue pain control Continue to monitor CBC, BMP, LFTs Continue IV fluid hydration Encourage ambulation as tolerated Ultrasound of the abdomen reviewed Defer EGD and colonoscopy to the surgical service will follow the patient Thank you for allowing us to participate in the care of this patient we will continue
[2021-01-23 10:10] LABS: Calcium 7.7 mg/dL (8.4-10.2); Potassium 3.1 mmol/L (3.5-5.1)
--- NOTE | 2021-01-23 10:14 | P.PN ---
Subjective Progress Note Date: 01/23/21 Principal diagnosis: Pancreatitis, Covid-19 infection Patient seen and examined lying in bed. The patient was prepped yesterday evening and is scheduled for an EGD and colonoscopy today with Dr. Godwin. He denies any abdominal pain, nausea, or vomiting. No acute changes through the night. He denies any fever or chills. Today's repeat lipase 959. Objective - Vital Signs Vital signs: Vital Signs Temp 98.5 F 01/23/21 04:00 Pulse 78 01/23/21 04:00 Resp 18 01/23/21 04:00 BP 157/83 01/23/21 04:00 Pulse Ox 96 01/23/21 04:18 Intake & Output 01/22/21 01/23/21 01/23/21 18:59 06:59 18:59 Intake Total 1140 690 Output Total 0 Balance 1140 690 Weight 52.5 kg 51 kg Intake: IV 450 Sodium Chloride 0.9% 1, 450 000 ml @ 60 mls/hr IV . [id number] [facility] Rx#:[id number] Oral 1140 240 Output: Urine 0 Other: Voiding Method CAPD CAPD # Voids 1 - Exam General appearance: The patient is alert, oriented, appears in no acute distress. HET: Head is normocephalic and atraumatic. Conjunctiva pink. Sclera anicteric. Neck: Supple without lymphadenopathy. Abdomen: Soft, nontender, nondistended with bowel sounds. No guarding or rigidity. Extremities: Normal skin color and turgor. No pedal edema Skin: No rashes, no jaundice Neurological: No focal deficits. Alert and oriented 3. - Labs CBC & Chem 7: 01/21/21 06:30 01/23/21 09:17 Labs: Abnormal Lab Results - Last 24 Hours (Table) 01/22/21 Range/Units 16:16 Potassium 3.3 L (3.5-5.1) mmol/L Assessment and Plan (1) Pancreatitis Narrative/Plan: 75-year-old male with multiple medical comorbidities presenting after a episode of passing out. The patient had been prepping for an EGD and colonoscopy for evaluation of unintentional weight loss with approximately 30 pounds lost over the past few months. He had reported abdominal pain, nausea and vomiting over the few days prior to presentation. Patient had markedly elevated amylase and lipase 639 and 3074 on presentation and is currently being treated for acute on computed pancreatitis. Current Visit: Yes Status: Acute Code(s): K85.90 - ACUTE PANCREATITIS WITHOUT NECROSIS OR INFECTION, UNSP SNOMED Code(s): 47311824 (2) Vomiting Current Visit: Yes Status: Acute Code(s): R11.10 - VOMITING, UNSPECIFIED SNOMED Code(s): 691785698 (3) COVID-19 Current Visit: Yes Status: Acute Code(s): U07.1 - COVID-19 SNOMED Code(s): 542459518 (4) ESRD (end stage renal disease) Current Visit: Yes Status: Acute Code(s): N18.6 - END STAGE RENAL DISEASE SNOMED Code(s): 19422336 Plan: Supportive care Continue IV hydration Triglycerides ordered DOE, IgG4 ordered and pending Daily Lipase Should scheduled for EGD and colonoscopy with surgical services today Diet per surgical recommendations Thank you for this consultation, we will continue to follow I agree with the dictator's note, documented as a scribe by Lakshmi Mayberry.
[2021-01-23] MEDS: amLODIPine 5 MG TAB PO SCH ×2 (11:02→21:20)
[2021-01-23] MEDS: PANTOPRAZOLE 40 MG/10 ML VIAL IVP SCH ×2 (11:02→21:20)
[2021-01-23] MEDS: METOPROLOL SUCCINATE (ER) 50 MG TAB.ER.24H PO SCH (11:02)
--- NOTE | 2021-01-23 12:23 | P.PN ---
Subjective Progress Note Date: 01/23/21 This is a 75-year-old gentleman with past medical history of hypertension, end- stage renal disease on peritoneal dialysis, abdominal aortic aneurysm-status post stent placement, bilateral renal artery stents, moderate mitral regurgitation,former nicotine dependence prided into the ER via EMS status post fall. He reports standing up at the sink in water and the next thing he knew, he was waking up on the floor. Denies incontinence of urine or bowel movement, believes he hit his head. Reports mid epigastric abdominal pain accompanied by nausea and vomiting 3 days. Currently no abdominal pain, nausea and vomiting have responded to Zofran. Reports neck and right shoulder pain that has been present for about 3 weeks secondary to prior fall. Denies fevers, dyspnea. Denies lightheadedness, dizziness or focal deficits. Denies back pain. Denies chest pain, palpitations or shortness of breath. Worsening renal function. Reports compliant with his peritoneal dialysis. Last peritoneal dialysis was last night.Patient initially was scheduled today with Dr. Godwin for endoscopy procedure related to unexplained 15-20 pound weight loss over the last few months.Vital signs stable, maintaining O2 sats in the 90s on room air.Afebrile, WBC 13.3. Hemoglobin 14.8, platelets 154, INR 1. Sodium 137, potassium 2.9 BUN 49, creatinine 10.48. Magnesium 3.3 Plasma lactic acid on admission 4.6, with IV fluid hydration down to 2.8 T bili, LFTs within normal limits. Amylase 639, lipase 2074 Positive for coronavirus. Right shoulder x-ray reporting no acute fracture or dislocation, osteoarthritis( history of trauma 3 weeks prior). Head/C-spine CT reported No acute fracture or dislocation of the C-spine, no acute intracranial hemorrhage, mass effect or midline shift, comminuted Medial right clavicular fracture of questionable age. Chest x-ray reporting pneumoperitoneum, para esophageal hernia with partial intrathoracic stomach. Abdominal ultrasound reporting moderate ascites, only partial visualization of pancreas, possible cirrhosis, right renal atrophy. Abdominal pelvis CT reported slight interval growth of abdominal aortic aneurysm, and endoleak not excluded, atrophic kidneys, ascites, postprocedural changes. 01/22/2021 maintained on IV fluid hydration, nausea 1 this morning-received Zofran, feeling better .received multiple potassium supplements, currently up to 3.7 . BUN 61, creatinine 10.13. Currently maintained on CAPD exchanges. Amylase and lipase trending down, 422 in 1045 evaluated by surgery, reviewed CT, reporting free fluid and pneumoperitoneum consistent with indwelling PD cath. Patient initially scheduled for EGD and colonoscopy yesterday and had been taking a bowel prep, surgery discussing proceeding with EGD/colonoscopy inpatient. Afebrile. Hypertensive. 01/23/2021 labs pending. NPO, scheduled for EGD and colonoscopy today. Denies nausea, vomiting. Denies abdominal pain. Denies chest pain, palpitations or shortness of breath. Norvasc added yesterday. Systolic pressures ranging in the 120s to 150s. Maintaining O2 sats in the 90s on 2 L nasal cannula, O2 sat on room air 89%. Objective - Vital Signs Vital signs: Vital Signs Temp 98.5 F 01/23/21 04:00 Pulse 78 01/23/21 04:00 Resp 18 01/23/21 04:00 BP 157/83 01/23/21 04:00 Pulse Ox 96 01/23/21 04:18 Intake & Output 01/22/21 01/23/21 01/23/21 18:59 06:59 18:59 Intake Total 1140 690 Output Total 0 Balance 1140 690 Weight 52.5 kg 51 kg Intake: IV 450 Sodium Chloride 0.9% 1, 450 000 ml @ 60 mls/hr IV . [id number] [facility] Rx#:[id number] Oral 1140 240 Output: Urine 0 Other: Voiding Method CAPD CAPD # Voids 1 - Exam - Exam GENERAL: Sitting up in bed, no acute distress HEAD: Atraumatic, normocephalic. EYES: Pupils equal round and reactive to light, sclera anicteric, conjunctiva normal. ENT:nares patent, oropharynx clear without exudates. Oral mucosa dry. NECK: Normal range of motion, supple without lymphadenopathy or JVD, no thyromegaly. LUNGS: Nonlabored, Diminished throughout . No wheezes or rhonchi. No crackles HEART: Regular rate and rhythm without murmurs, rubs or gallops.S1S2 Normal ABDOMEN: Soft, nondistended, nontender, normoactive bowel sounds. No guarding, no rebound. No masses appreciated. EXTREMITIES: Normal range of motion, no edema, No clubbing or cyanosis. NEUROLOGICAL: Cranial nerves II through XII grossly intact. No focal deficits . SKIN: Warm, Dry, normal turgor, no rashes noted. - Labs CBC & Chem 7: 01/21/21 06:30 01/23/21 09:17 Labs: Abnormal Lab Results - Last 24 Hours (Table) 01/22/21 01/22/21 Range/Units 07:14 16:16 Sodium 136 L (137-145) mmol/L Potassium 3.3 L (3.5-5.1) mmol/L Chloride 96 L (98-107) mmol/L BUN 61 H (9-20) mg/dL Creatinine 10.13 H* (0.66-1.25) mg/dL Calcium 8.1 L (8.4-10.2) mg/dL Amylase 422 H* (30-110) U/L Lipase 1045 H (23-300) U/L Assessment and Plan Assessment: -Abdominal pain, status post fall, acute pancreatitis -Dehydration secondary to the above -Lactic acidosis -COVID-19 -Severe hypokalemia -Acute on chronic, end-stage renal disease, on PD -Syncope, etiology unclear, suspect multifactorial ,related to all the above, workup in progress. -Pneumoperitoneum, related to peritoneal dialysis catheter as per surgery review of CT. -Right shoulder and neck pain of 3 weeks status post prior fall, comminuted fracture of the medial aspect of right clavicle per CT -Weight loss of 15-20 pounds over the last few months, the etiology unclear. Initially scheduled outpatient for endoscopy workup with Dr. Godwin. - History of Bilateral renal artery stents 2018 , revascularization unsuccessful on last admission -Acute hypoxic respiratory failure, secondary to the above -Chronic CHF exacerbation, systolic dysfunction EF 45-50%. -Hypertension -Anemia of chronic disease, iron deficient -AAA, status post stent placement, slight interval growth, possible endoleak not excluded as per CT, 7.9 cm(previous exam measured 7.7 cm) -Former nicotine dependence -Moderate mitral regurgitation -Mild pulmonary hypertension -History of Nonspecific 12 x 0.6 cm lung opacity, follow-up OP rec. Plan: Continue on current medication regime ,monitoring and symptomatic treatment. Labs pending. IV Fluid hydration. EGD/colonoscopy pending. Close monitoring of electrolytes, renal function. Peritoneal dialysis and electrolyte replacement as per nephrology. The impression and plan of care has been dictated as directed. Dr.: I performed a history and examination of this patient, discussed the same with the dictator. I agree with the dictator's note ,documented as a scribe. Any additional findings or plans will be noted. The impression and plan of care has been dictated as directed. Dr.: I performed a history and examination of this patient, discussed the same with the dictator. I agree with the dictator's note ,documented as a scribe. Any additional findings or plans will be noted.
[2021-01-23] MEDS ORDERED: PROPOFOL 10 MG/ML 20 ML VIAL IV ONE (12:36)
[2021-01-23] MEDS ORDERED: IV FLUID CONTINUATION 1,000 ML IV ONE (12:38)
--- NOTE | 2021-01-23 13:26 | P.PCN ---
Date of Procedure: 01/23/21 Procedure(s) Performed: PREOPERATIVE DIAGNOSIS: Weight loss, epigastric pain, change in bowel habits POSTOPERATIVE DIAGNOSIS: Duodenitis, erosive gastritis, hiatal hernia, long segment Sykes's esophagus, descending colon polyp, rectal polyp PROCEDURE: 1. EGD with biopsy 2. Colonoscopy with snare polypectomy ANESTHESIA: [facility] [place] SURGEON: Abbe Godwin M.D. SPECIMENS: Duodenum, antrum, Sykes's esophagus, polyps ENDOSCOPIC PROCEDURE: The patient was on the endoscopy table in the left decubitus position. The Olympus gastroscope was inserted into the oropharynx and passed under direct visualization to the region of the third portion of the duodenum. From that point the scope was slowly withdrawn inspecting all surfaces carefully. There was noted to be inflammatory changes of the mucosa involving the first and second portion of the duodenum. Biopsies were taken. Superficial erosions were suspected and a few areas but no deep ulcerations noted. This did not have a frankly neoplastic appearance. The pylorus had inflammatory changes as well. In the prepyloric region and distal antrum there was gastritis present with a few small erosions also identified. Again the mucosa was pliable and did not have a frankly malignant appearance. Multiple biopsies of the antral gastritis took place. Retroflexion revealed a moderate sized hiatal hernia. The GE junction was present for centimeters above the diaphragmatic hiatus. 10 cm above the Z line the patient had evidence of Sykes's esophagus. There was no erosions or significant inflammatory changes. Multiple biopsies of the Sykes's esophagus took place to rule out atypia. The proximal esophagus appeared normal. The patient was kept on the endoscopy table in the left decubitus position. The Olympus colonoscope was inserted into the anus and passed under direct visualization to the base of the cecum. The appendiceal orifice was visualized. From that point the scope was slowly withdrawn inspecting all surfaces carefully. There were no neoplastic inflammatory or polypoid lesions throughout the cecum. In the ascending colon sessile polyp was removed using the snare with cautery technique. This measured 5 mm in size. Transverse colon descending colon and sigmoid colon appeared normal. At 12 cm a slightly larger polyp measuring about 8 mm and was removed from the proximal rectum in a similar fashion. The remainder the rectum was normal. The patient's prep was somewhat suboptimal all below I was able to irrigate the majority of the liquid stool and I do not believe that we missed any large masses or polyps. There was no definite diverticulosis seen. Digital rectal examination revealed internal and external hemorrhoids without inflammatory changes. The patient was taken to the recovery room in stable condition per anesthesia guidelines. RECOMMENDATIONS: Await biopsy results. Increase antiacid therapy. Continue gentle hydration. Begin liquid diet. Continue dialysis per nephrology. We'll follow.
--- NOTE | 2021-01-23 15:05 | PN ---
PROGRESS NOTE Patient is seen for followup for end-stage renal disease. He is tolerating his peritoneal dialysis fairly well. Serum creatinine has improved. The patient is scheduled for EGD and colonoscopy. PHYSICAL EXAMINATION: On examination today, blood pressure was 167/84, heart rate 86 per minute. He is afebrile. Examination of lower extremities shows no evidence of edema. Abdomen is soft, nontender. The patient is maintained on IV fluids at 60 mL an hour. [employer] exam is grossly intact. LABS: Labs show sodium 130, potassium 3.1, BUN 52, creatinine 8.1, and lipase 959 down from 1045. ASSESSMENT: 1. End-stage renal disease, on peritoneal dialysis continue the 1.5% solutions q.6 hours. Continue with IV fluids. 2. Hypokalemia being replaced associated with peritoneal dialysis as well. 3. Hypertension, maintained on Norvasc and Toprol. Increase the Norvasc to 10 mg daily. PLAN: Replace potassium. Continue PD exchanges. Increase Norvasc to 10 mg daily. Repeat labs in a.m. Once patient is eating well, we can discontinue the IV fluids. MMODL / IJN: [id number] /
[2021-01-23] MEDS: ASCORBIC ACID 500 MG TAB PO SCH (15:58)
[2021-01-23] MEDS: ATORVASTATIN 80 MG TAB PO SCH (15:58)
[2021-01-23] MEDS: CHOLECALCIFEROL 25 MCG (1000 IU) TABLET PO SCH (15:58)
[2021-01-23] MEDS: ZINC SULFATE 220 MG CAP PO SCH (15:58)
[2021-01-24] MEDS: DIALYSIS (PERIT 1.5%) 2,500 ML 37.5 G/2,500 ML BAG INTRAPERIT SCH ×4 (04:47→21:26)
[2021-01-24] MEDS: SODIUM CHLORIDE 0.9% 1,000 ML IV SCH (04:47)
[2021-01-24 07:48] LABS: Basophils % (A) 0 %; Eosinophils # (A) 0.1 k/uL (0-0.7); Eosinophils % (A) 1 %; HCT 31.1 % (39.0-53.0); Lymphocytes # (A) 0.8 k/uL (1.0-4.8); Lymphocytes % (A) 12 %; MCH 32.6 pg (25.0-35.0); MCHC 33.2 g/dL (31.0-37.0); MCV 98.2 fL (80.0-100.0); Mean Platelet Volume 7.7; Monocytes # (A) 0.6 k/uL (0-1.0); Monocytes % (A) 8 %; Neutrophils # (A) 5.6 k/uL (1.3-7.7); Neutrophils % (A) 77 %; Platelet Count 122 k/uL (150-450); RBC 3.17 m/uL (4.30-5.90); RDW 14.7 % (11.5-15.5); WBC 7.3 k/uL (3.8-10.6)
[2021-01-24 07:58] LABS: Calcium 7.3 mg/dL (8.4-10.2); Potassium 2.9 mmol/L (3.5-5.1)
[2021-01-24 07:59] LABS: HGB 10.3 gm/dL (13.0-17.5)
--- NOTE | 2021-01-24 09:23 | P.PN ---
Subjective Progress Note Date: 01/24/21 Principal diagnosis: Pancreatitis, Covid-19 infection Patient was seen and examined sitting up in his chair. States his abdominal pain has improved. Rates it as a 5 out of 10 in the right upper quadrant. He is status post EGD and colonoscopy. EGD revealed duodenitis, erosive gastritis and a hiatal hernia and a long segment of Sykes's esophagus. Colonoscopy revealed colon polyp and rectal polyp with polypectomy. He denies any nausea or vomiting. He is eating a regular diet. Objective - Vital Signs Vital signs: Vital Signs Temp 98.7 F 01/24/21 04:55 Pulse 88 01/24/21 04:55 Resp 16 01/24/21 04:55 BP 149/72 01/24/21 04:55 Pulse Ox 92 L 01/24/21 04:55 Intake & Output 01/23/21 01/24/21 01/24/21 18:59 06:59 18:59 Intake Total 2130 240 Output Total 300 Balance 2130 -300 240 Weight 64.5 kg Intake: IV 1650 Sodium Chloride 0.9% 1, 1400 000 ml @ 60 mls/hr IV . [id number] [facility] Rx#:[id number] Oral 480 240 Output: Urine 300 Other: Voiding Method CAPD CAPD - Exam General appearance: The patient is alert, oriented, appears in no acute distress. HET: Head is normocephalic and atraumatic. Conjunctiva pink. Sclera anicteric. Neck: Supple without lymphadenopathy. Abdomen: Soft, mild right upper quadrant tenderness, nondistended with bowel sounds. No guarding or rigidity. Extremities: Normal skin color and turgor. No pedal edema Skin: No rashes, no jaundice Neurological: No focal deficits. Alert and oriented 3. - Labs CBC & Chem 7: 01/24/21 07:20 01/24/21 07:20 Labs: Abnormal Lab Results - Last 24 Hours (Table) 01/23/21 01/23/21 01/24/21 Range/Units 09:17 09:17 07:20 RBC 3.17 L (4.30-5.90) m/uL Hgb 10.3 L D (13.0-17.5) gm/dL Hct 31.1 L (39.0-53.0) % Plt Count 122 L (150-450) k/uL Lymphocytes # 0.8 L (1.0-4.8) k/uL Sodium 130 L (137-145) mmol/L Potassium 3.1 L (3.5-5.1) mmol/L Chloride 95 L (98-107) mmol/L BUN 52 H (9-20) mg/dL Creatinine 8.13 H* (0.66-1.25) mg/dL Glucose (74-99) mg/dL Calcium 7.7 L (8.4-10.2) mg/dL Magnesium 2.7 H (1.6-2.3) mg/dL Lipase 959 H (23-300) U/L 01/24/21 01/24/21 Range/Units 07:20 07:20 RBC (4.30-5.90) m/uL Hgb (13.0-17.5) gm/dL Hct (39.0-53.0) % Plt Count (150-450) k/uL Lymphocytes # (1.0-4.8) k/uL Sodium 129 L (137-145) mmol/L Potassium 2.9 L (3.5-5.1) mmol/L Chloride 93 L (98-107) mmol/L BUN 46 H (9-20) mg/dL Creatinine 7.29 H* (0.66-1.25) mg/dL Glucose 116 H (74-99) mg/dL Calcium 7.3 L (8.4-10.2) mg/dL Magnesium (1.6-2.3) mg/dL Lipase 1234 H (23-300) U/L Assessment and Plan (1) Pancreatitis Narrative/Plan: 75-year-old male with multiple medical comorbidities presenting after a episode of passing out. The patient had been prepping for an EGD and colonoscopy for evaluation of unintentional weight loss with approximately 30 pounds lost over the past few months. He had reported abdominal pain, nausea and vomiting over the few days prior to presentation. Patient had markedly elevated amylase and lipase 639 and 3074 on presentation and is currently being treated for acute on computed pancreatitis. Current Visit: Yes Status: Acute Code(s): K85.90 - ACUTE PANCREATITIS WITHOUT NECROSIS OR INFECTION, UNSP SNOMED Code(s): 35035616 (2) Vomiting Current Visit: Yes Status: Acute Code(s): R11.10 - VOMITING, UNSPECIFIED SNOMED Code(s): 147601373 (3) COVID-19 Current Visit: Yes Status: Acute Code(s): U07.1 - COVID-19 SNOMED Code(s): 882295969 (4) ESRD (end stage renal disease) Current Visit: Yes Status: Acute Code(s): N18.6 - END STAGE RENAL DISEASE SNOMED Code(s): 05978737 Plan: Supportive care Continue IV hydration Triglycerides ordered DOE, IgG4 ordered and pending Daily Lipase Status post EGD and colonoscopy Diet per surgical recommendations Thank you for this consultation, we will be on stand by Dr. Franklin I agree with the dictator's note, documented as a scribe by Lakshmi Mayberry.
[2021-01-24] MEDS ORDERED: POTASSIUM CHLORIDE ER 20 MEQ TAB.ER PO STA ×2 (09:32→16:14)
[2021-01-24] MEDS: CHOLECALCIFEROL 25 MCG (1000 IU) TABLET PO SCH (09:59)
[2021-01-24] MEDS: PANTOPRAZOLE 40 MG/10 ML VIAL IVP SCH ×2 (10:00→21:36)
[2021-01-24] MEDS: METOPROLOL SUCCINATE (ER) 50 MG TAB.ER.24H PO SCH (10:00)
[2021-01-24] MEDS: ATORVASTATIN 80 MG TAB PO SCH (10:00)
[2021-01-24] MEDS: ZINC SULFATE 220 MG CAP PO SCH (10:00)
[2021-01-24] MEDS: ASCORBIC ACID 500 MG TAB PO SCH (10:00)
[2021-01-24] MEDS: amLODIPine 5 MG TAB PO SCH ×2 (10:01→21:36)
[2021-01-24] MEDS: HYDROcodone/APAP 5-325MG 1 EACH TAB PO PRN (10:34)
--- NOTE | 2021-01-24 11:17 | P.PN ---
<ElizabethrikkiReina cordoba - Last Filed: 01/24/21 11:10> Subjective Progress Note Date: 01/24/21 CHIEF COMPLAINT: Abdominal pain HISTORY OF PRESENT ILLNESS: Patient is still complaining of mid upper abdominal pain. He reports it to be about the same as yesterday. He is having some nausea. He did have some pain after eating his clear liquid tray. He denies any vomiting. He is afebrile. WBC 7.3 hemoglobin 10.3 sodium 129 potassium 2.9 creatinine 7.29 lipase is up from 959 to 1234. Triglyceride level 110 patient is having peritoneal dialysis this morning PHYSICAL EXAM: VITAL SIGNS: Reviewed. GENERAL: Well-developed in no acute distress. HEENT: No sclera icterus. Extraocular movements grossly intact. Moist buccal mucosa. Head is atraumatic, normocephalic. ABDOMEN: Soft. Nondistended. Epigastric tenderness NEUROLOGIC: Alert and oriented. Cranial nerves II through XII grossly intact. ASSESSMENT: 1. Pancreatitis 2. Epigastric abdominal pain. Status post EGD and colonoscopy with results showing duodenitis, erosive gastritis, hiatal hernia, long segment Sykes's esophagus, distending colon polyp and rectal polyp. Patient did have EGD with biopsy and colonoscopy with snare polypectomy PLAN: -Await biopsy results -Continue Protonix -Continue clear liquid diet Physician Sealer Operator note has been reviewed by physician. Signing provider agrees with the documented findings, assessment, and plan of care. Objective - Vital Signs Vital signs: Vital Signs Temp 97.9 F 01/24/21 08:00 Pulse 88 01/24/21 08:00 Resp 16 01/24/21 08:00 BP 143/73 01/24/21 08:00 Pulse Ox 93 L 01/24/21 08:00 Intake & Output 01/23/21 01/24/21 01/24/21 18:59 06:59 18:59 Intake Total 2130 240 Output Total 300 Balance 2130 -300 240 Weight 64.5 kg Intake: IV 1650 Sodium Chloride 0.9% 1, 1400 000 ml @ 60 mls/hr IV . [id number] [facility] Rx#:[id number] Oral 480 240 Output: Urine 300 Other: Voiding Method CAPD CAPD CAPD - Labs CBC & Chem 7: 01/24/21 07:20 01/24/21 07:20 Labs: Abnormal Lab Results - Last 24 Hours (Table) 01/23/21 01/24/21 01/24/21 Range/Units 09:17 07:20 07:20 RBC 3.17 L (4.30-5.90) m/uL Hgb 10.3 L D (13.0-17.5) gm/dL Hct 31.1 L (39.0-53.0) % Plt Count 122 L (150-450) k/uL Lymphocytes # 0.8 L (1.0-4.8) k/uL Sodium 129 L (137-145) mmol/L Potassium 2.9 L (3.5-5.1) mmol/L Chloride 93 L (98-107) mmol/L BUN 46 H (9-20) mg/dL Creatinine 7.29 H* (0.66-1.25) mg/dL Glucose 116 H (74-99) mg/dL Calcium 7.3 L (8.4-10.2) mg/dL Magnesium 2.7 H (1.6-2.3) mg/dL Lipase (23-300) U/L 01/24/21 Range/Units 07:20 RBC (4.30-5.90) m/uL Hgb (13.0-17.5) gm/dL Hct (39.0-53.0) % Plt Count (150-450) k/uL Lymphocytes # (1.0-4.8) k/uL Sodium (137-145) mmol/L Potassium (3.5-5.1) mmol/L Chloride (98-107) mmol/L BUN (9-20) mg/dL Creatinine (0.66-1.25) mg/dL Glucose (74-99) mg/dL Calcium (8.4-10.2) mg/dL Magnesium (1.6-2.3) mg/dL Lipase 1234 H (23-300) U/L <Abbe Godwin - Last Filed: 01/24/21 12:26> Subjective As above. Patient seems to be improving. Continue liquid diet given elevation of lipase. Add Carafate. Await biopsy results. Objective - Vital Signs Vital signs: Vital Signs Temp 97.9 F 01/24/21 10:00 Pulse 78 01/24/21 10:00 Resp 14 01/24/21 10:00 BP 143/73 01/24/21 10:00 Pulse Ox 96 01/24/21 10:00 Intake & Output 01/23/21 01/24/21 01/24/21 18:59 06:59 18:59 Intake Total 2130 240 Output Total 300 Balance 2130 -300 240 Weight 64.5 kg Intake: IV 1650 Sodium Chloride 0.9% 1, 1400 000 ml @ 60 mls/hr IV . [id number] [facility] Rx#:[id number] Oral 480 240 Output: Urine 300 Other: Voiding Method CAPD CAPD CAPD - Labs CBC & Chem 7: 01/24/21 07:20 01/24/21 07:20 Labs: Abnormal Lab Results - Last 24 Hours (Table) 01/24/21 01/24/21 01/24/21 Range/Units 07:20 07:20 07:20 RBC 3.17 L (4.30-5.90) m/uL Hgb 10.3 L D (13.0-17.5) gm/dL Hct 31.1 L (39.0-53.0) % Plt Count 122 L (150-450) k/uL Lymphocytes # 0.8 L (1.0-4.8) k/uL Sodium 129 L (137-145) mmol/L Potassium 2.9 L (3.5-5.1) mmol/L Chloride 93 L (98-107) mmol/L BUN 46 H (9-20) mg/dL Creatinine 7.29 H* (0.66-1.25) mg/dL Glucose 116 H (74-99) mg/dL Calcium 7.3 L (8.4-10.2) mg/dL Lipase 1234 H (23-300) U/L Assessment and Plan (1) Pancreatitis Current Visit: Yes Status: Acute Code(s): K85.90 - ACUTE PANCREATITIS WITHOUT NECROSIS OR INFECTION, UNSP SNOMED Code(s): 71922985
--- NOTE | 2021-01-24 13:47 | XR ---
EXAMINATION TYPE: XR chest 1V portable DATE OF EXAM: 01/24/2021 HISTORY: Shortness of breath. COMPARISON: 01/21/2021 TECHNIQUE: Single view of the chest is submitted. FINDINGS: Demonstrated are scattered senescent parenchymal change. Patchy infiltrate left lower lobe. Correlate for pneumonia. The heart is stable. Hilar and mediastinal structures are within normal limits. Degenerative changes are seen of the dorsal spine. IMPRESSION: 1. Patchy infiltrate left lower lobe. Correlate for pneumonia.
[2021-01-24] MEDS: SUCRALFATE 1 GM TAB PO SCH (16:28)
--- NOTE | 2021-01-24 16:52 | P.PN ---
Subjective Progress Note Date: 01/24/21 This is a 75-year-old gentleman with past medical history of hypertension, end- stage renal disease on peritoneal dialysis, abdominal aortic aneurysm-status post stent placement, bilateral renal artery stents, moderate mitral regurgitation,former nicotine dependence prided into the ER via EMS status post fall. He reports standing up at the sink in water and the next thing he knew, he was waking up on the floor. Denies incontinence of urine or bowel movement, believes he hit his head. Reports mid epigastric abdominal pain accompanied by nausea and vomiting 3 days. Currently no abdominal pain, nausea and vomiting have responded to Zofran. Reports neck and right shoulder pain that has been present for about 3 weeks secondary to prior fall. Denies fevers, dyspnea. Denies lightheadedness, dizziness or focal deficits. Denies back pain. Denies chest pain, palpitations or shortness of breath. Worsening renal function. Reports compliant with his peritoneal dialysis. Last peritoneal dialysis was last night.Patient initially was scheduled today with Dr. Godwin for endoscopy procedure related to unexplained 15-20 pound weight loss over the last few months.Vital signs stable, maintaining O2 sats in the 90s on room air.Afebrile, WBC 13.3. Hemoglobin 14.8, platelets 154, INR 1. Sodium 137, potassium 2.9 BUN 49, creatinine 10.48. Magnesium 3.3 Plasma lactic acid on admission 4.6, with IV fluid hydration down to 2.8 T bili, LFTs within normal limits. Amylase 639, lipase 2074 Positive for coronavirus. Right shoulder x-ray reporting no acute fracture or dislocation, osteoarthritis( history of trauma 3 weeks prior). Head/C-spine CT reported No acute fracture or dislocation of the C-spine, no acute intracranial hemorrhage, mass effect or midline shift, comminuted Medial right clavicular fracture of questionable age. Chest x-ray reporting pneumoperitoneum, para esophageal hernia with partial intrathoracic stomach. Abdominal ultrasound reporting moderate ascites, only partial visualization of pancreas, possible cirrhosis, right renal atrophy. Abdominal pelvis CT reported slight interval growth of abdominal aortic aneurysm, and endoleak not excluded, atrophic kidneys, ascites, postprocedural changes. 01/22/2021 maintained on IV fluid hydration, nausea 1 this morning-received Zofran, feeling better .received multiple potassium supplements, currently up to 3.7 . BUN 61, creatinine 10.13. Currently maintained on CAPD exchanges. Amylase and lipase trending down, 422 in 1045 evaluated by surgery, reviewed CT, reporting free fluid and pneumoperitoneum consistent with indwelling PD cath. Patient initially scheduled for EGD and colonoscopy yesterday and had been taking a bowel prep, surgery discussing proceeding with EGD/colonoscopy inpatient. Afebrile. Hypertensive. 01/23/2021 labs pending. NPO, scheduled for EGD and colonoscopy today. Denies nausea, vomiting. Denies abdominal pain. Denies chest pain, palpitations or shortness of breath. Norvasc added yesterday. Systolic pressures ranging in the 120s to 150s. Maintaining O2 sats in the 90s on 2 L nasal cannula, O2 sat on room air 89%. 01/24/2021 and sitting up in chair, complaining of mild dizziness and mild right upper quadrant abdominal pain. Lipase increased to 1234. Tolerating regular diet, denies nausea/emesis. Patient underwent EGD and colonoscopy yesterday, tolerated procedure well. EGD revealed duodenitis, erosive gastritis and a hiatal hernia and a long segment of Sykes's esophagus. Colonoscopy revealed colon polyp and rectal polyp with polypectomy. Potassium 2.9, receiving potassium supplements. Creatinine 7.29. Sodium 129, IV fluids discontinued. Denies chest pain, palpitations or shortness of breath. Objective - Vital Signs Vital signs: Vital Signs Temp 98.0 F 01/24/21 16:00 Pulse 81 01/24/21 16:00 Resp 14 01/24/21 16:00 BP 140/77 01/24/21 16:00 Pulse Ox 93 L 01/24/21 16:00 Intake & Output 01/23/21 01/24/21 01/24/21 18:59 06:59 18:59 Intake Total 2130 1680 Output Total 300 400 Balance 2130 -300 1280 Weight 64.5 kg 64.5 kg Intake: IV 1650 200 Sodium Chloride 0.9% 1, 1400 200 000 ml @ 60 mls/hr IV . [id number] [facility] Rx#:[id number] Oral 480 1480 Output: Urine 300 Other 400 Other: Voiding Method CAPD CAPD CAPD - Exam - Exam GENERAL: Sitting up in bed, no acute distress HEAD: Atraumatic, normocephalic. EYES: Pupils equal round and reactive to light, sclera anicteric, conjunctiva normal. ENT:nares patent, oropharynx clear without exudates. Oral mucosa moist. NECK: Normal range of motion, supple without lymphadenopathy or JVD, no thyromegaly. LUNGS: Nonlabored, Diminished throughout.No wheezes or rhonchi. No crackles HEART: Regular rate and rhythm without murmurs, rubs or gallops.S1S2 Normal ABDOMEN: Soft, nondistended, minimal right upper quadrant tenderness, normoactive bowel sounds. No guarding, no rebound. EXTREMITIES: Normal range of motion, no edema, No clubbing or cyanosis. NEUROLOGICAL: Cranial nerves II through XII grossly intact. No focal deficits. SKIN: Warm, Dry, normal turgor, no rashes noted. - Labs CBC & Chem 7: 01/24/21 07:20 01/24/21 07:20 Labs: Abnormal Lab Results - Last 24 Hours (Table) 01/24/21 01/24/21 01/24/21 Range/Units 07:20 07:20 07:20 RBC 3.17 L (4.30-5.90) m/uL Hgb 10.3 L D (13.0-17.5) gm/dL Hct 31.1 L (39.0-53.0) % Plt Count 122 L (150-450) k/uL Lymphocytes # 0.8 L (1.0-4.8) k/uL Sodium 129 L (137-145) mmol/L Potassium 2.9 L (3.5-5.1) mmol/L Chloride 93 L (98-107) mmol/L BUN 46 H (9-20) mg/dL Creatinine 7.29 H* (0.66-1.25) mg/dL Glucose 116 H (74-99) mg/dL Calcium 7.3 L (8.4-10.2) mg/dL Lipase 1234 H (23-300) U/L Assessment and Plan Assessment: -Abdominal pain, status post fall, acute pancreatitis -Dehydration secondary to the above -Lactic acidosis -COVID-19 -Severe hypokalemia -Acute on chronic, end-stage renal disease, on PD -Syncope, etiology unclear, suspect multifactorial ,related to all the above, workup in progress. -Pneumoperitoneum, related to peritoneal dialysis catheter as per surgery review of CT. -Right shoulder and neck pain of 3 weeks status post prior fall, comminuted fracture of the medial aspect of right clavicle per CT -Weight loss of 30 pounds over the last few months, unintentional. Status post EGD and colonoscopy reporting duodenitis, erosive gastritis and a hiatal hernia and a long segment of Yskes's esophagus, colon polyp and rectal polyp with polypectomy. -Hyponatremia - History of Bilateral renal artery stents 2018 , revascularization unsuccessful on last admission -Acute hypoxic respiratory failure, secondary to the above -Chronic CHF exacerbation, systolic dysfunction EF 45-50%. -Hypertension -Anemia of chronic disease, iron deficient -AAA, status post stent placement, slight interval growth, possible endoleak not excluded as per CT, 7.9 cm(previous exam measured 7.7 cm) -Former nicotine dependence -Moderate mitral regurgitation -Mild pulmonary hypertension -History of Nonspecific 12 x 0.6 cm lung opacity, follow-up OP rec. Plan: Continue on current medication regime ,monitoring and symptomatic treatment. IV Fluids discontinued/fluid restrictions. Chest x-ray pending. Maintain PPI. Biopsy results pending. Potassium supplementation in progress. Peritoneal dialysis and electrolyte replacement as per nephrology. Close monitoring of electrolytes, renal function. Discussed subacute rehab at discharge and patient is agreeable. Social work consulted. The impression and plan of care has been dictated as directed. .: I performed a history and examination of this patient, discussed the same with the dictator. I agree with the dictator's note ,documented as a scribe. Any additional findings or plans will be noted. The impression and plan of care has been dictated as directed. .: I performed a history and examination of this patient, discussed the same with the dictator. I agree with the dictator's note ,documented as a scribe. Any additional findings or plans will be noted.
[2021-01-24] MEDS: LACTATED RINGERS 1,000 ML IV SCH (17:19)
--- NOTE | 2021-01-24 17:54 | PN ---
PROGRESS NOTE Patient is seen for followup for end-stage renal disease. He was admitted with complaints of decreased oral intake, weight loss. The patient did have EGD and colonoscopy performed on 01/23/2021. It showed evidence of erosive gastritis, duodenitis and Sykes's esophagus. Rectal polyp and colonic polyp were noted and biopsy as well as polypectomy was done. Currently patient is maintained on a liquid diet, as he was admitted with pancreatitis. Abdominal pain persists, but much improved. PHYSICAL EXAMINATION: On examination today, blood pressure is 143/73, heart rate 78 per minute. He is afebrile. Examination of the lower extremities shows no evidence of edema shows no evidence of edema. DATABASES SOFTWARE CONSULTANT exam is grossly intact. Heart and lungs are not examined. LABS: Sodium 129, potassium 2.9, chloride 93, BUN 46, serum creatinine 7.29, hemoglobin 10.3 g/dL. ASSESSMENT: 1. End-stage renal disease, on peritoneal dialysis. Continue with current PD exchanges. We using 1.5% solution q.6 hours, as patient was volume-depleted on admission. 2. Weight loss, decreased oral intake and abdominal pain, status post EGD and colonoscopy which showed evidence of duodenitis, gastritis and Sykes's esophagus. The patient also was found to have pancreatitis on initial admission. 3. Acute pancreatitis. No evidence of stones on the CT scan. Lipase is higher today. Patient is maintained on a liquid diet. 4. Hypokalemia associated with decreased oral intake as well as PD fluid losses, being replaced. 5. Hyponatremia, currently worse with IV fluid administration. Patient is currently euvolemic. 6. Coronavirus PCR positive, with history of significant chest x-ray findings. PLAN: Discontinue IV fluids. Maintain oral intake. Replace potassium. Continue current PD exchanges. Repeat labs in a.m. Continue treatment for gastritis and duodenitis. MMODL / IJN: [id number] /
[2021-01-25] MEDS: DIALYSIS (PERIT 1.5%) 2,500 ML 37.5 G/2,500 ML BAG INTRAPERIT SCH ×4 (03:16→21:21)
[2021-01-25] MEDS: SUCRALFATE 1 GM TAB PO SCH ×2 (05:53→16:19)
[2021-01-25 09:14] LABS: Calcium 7.5 mg/dL (8.4-10.2); Magnesium 2.1 mg/dL (1.6-2.3); Potassium 3.5 mmol/L (3.5-5.1)
[2021-01-25] MEDS ORDERED: POTASSIUM CHLORIDE ER 20 MEQ TAB.ER PO STA (09:20)
--- NOTE | 2021-01-25 09:21 | P.PN ---
Subjective Patient is seen in follow-up for end-stage renal disease. He is maintained on peritoneal dialysis. Maintaining a net negative fluid balance. He is tolerating clear diet. No chest pain or shortness of breath. Potassium level improved. Off IV fluids. Vital signs are stable. General: The patient appeared well nourished and normally developed. HEENT: Head exam is unremarkable. Neck is without jugular venous distension. LUNGS: Breath sounds decreased. HEART: Rate and Rhythm are regular. ABDOMEN: Soft, no distention noted. EXTREMITITES: No edema. Objective - Vital Signs Vital signs: Vital Signs Temp 98.3 F 01/25/21 04:00 Pulse 82 01/25/21 04:00 Resp 18 01/25/21 04:00 BP 150/62 01/25/21 04:00 Pulse Ox 96 01/25/21 04:00 Intake & Output 01/24/21 01/25/21 01/25/21 18:59 06:59 18:59 Intake Total 2040 118 Output Total 400 0 Balance 1640 0 118 Weight 64.5 kg 63 kg Intake: IV 200 Sodium Chloride 0.9% 1, 200 000 ml @ 60 mls/hr IV . [id number] [facility] Rx#:[id number] Oral 1840 118 Output: Urine 0 Other 400 Other: Voiding Method CAPD CAPD # Voids 1 - Labs CBC & Chem 7: 01/24/21 07:20 01/25/21 06:32 Labs: Abnormal Lab Results - Last 24 Hours (Table) 01/25/21 01/25/21 Range/Units 06:32 06:32 Sodium 130 L (137-145) mmol/L Chloride 94 L (98-107) mmol/L BUN 43 H (9-20) mg/dL Creatinine 6.76 H (0.66-1.25) mg/dL Glucose 108 H (74-99) mg/dL Calcium 7.5 L (8.4-10.2) mg/dL Lipase 2018 H (23-300) U/L Assessment and Plan Plan: Assessment: 1. End-stage renal disease maintained on peritoneal dialysis. 2. Hyponatremia secondary to chronic kidney disease. 3. Hypokalemia from poor intake and PD losses. Status post placement. Better. 4. Acute pancreatitis. Lipase trending up. Surgery following. EGD and colonoscopy done this admission revealed duodenitis, erosive gastritis, hiatal hernia, long segment Sykes's esophagus as well as descending colon and rectal polyp. 5. Hypertension with chronic kidney disease. Stable. 6. Chronic systolic CHF with ejection fraction of 40-45% with moderate mitral regurgitation. 7. History of AAA repair with aortobiiliac stenting. 8. Covid-19 infection. Plan: Maintain 2.5 L exchanges every 6 hours with 1.5% dextrose solution. Replace potassium. 40 mEq today. Off IV fluids. Lactulose as needed for constipation.
[2021-01-25] MEDS: CHOLECALCIFEROL 25 MCG (1000 IU) TABLET PO SCH (10:04)
[2021-01-25] MEDS: ASCORBIC ACID 500 MG TAB PO SCH (10:05)
[2021-01-25] MEDS: METOPROLOL SUCCINATE (ER) 50 MG TAB.ER.24H PO SCH (10:05)
[2021-01-25] MEDS: PANTOPRAZOLE 40 MG/10 ML VIAL IVP SCH (10:05)
[2021-01-25] MEDS: ZINC SULFATE 220 MG CAP PO SCH (10:05)
[2021-01-25] MEDS: ATORVASTATIN 80 MG TAB PO SCH (10:05)
[2021-01-25] MEDS: amLODIPine 5 MG TAB PO SCH ×2 (10:05→21:22)
[2021-01-25] MEDS: HYDROcodone/APAP 5-325MG 1 EACH TAB PO PRN ×2 (10:13→16:21)
[2021-01-25] MEDS: LACTATED RINGERS 1,000 ML IV SCH (16:19)
[2021-01-25] MEDS: PANTOPRAZOLE 40 MG TABLET PO SCH (16:19)
--- NOTE | 2021-01-25 19:29 | P.PN ---
Subjective Progress Note Date: 01/25/21 CHIEF COMPLAINT: Pancreatitis HISTORY OF PRESENT ILLNESS: The patient is a 75-year-old male status post upper and lower endoscopy. He developed pancreatitis. He has history of pre-existing chronic renal failure and on peritoneal dialysis. He reports worsening epigastrium abdominal pain with eating. His lipase continues to elevate from 1000 to 2000! ROS: Has nausea and vomiting. No fevers or chills. No new chest pain. PHYSICAL EXAM: VITAL SIGNS: Reviewed CONSTITUTIONAL: Well developed and in no acute distress. EYES: Conjuctivae without sclera icterus. Extraocular movements grossly intact. HEAD, EARS, NOSE, THROAT: Moist buccal mucosa. Head is atraumatic, normocephalic. Hears conversational speech. No nasal drainage. NECK: Supple. No thyroidomegaly. RESPIRATORY: Non-labored respirations and equal bilateral excursions. CARDIOVASCULAR: Regular rate. Regular rhythm. ABDOMEN: Has epigastric abdominal pain. No peritoneal. MUSCULOSKELETAL: No gross deformity of the lower extremities noted. No clubbing. No cyanosis. SKIN: Good skin turgor. Well perfused. NEUROLOGIC: Cranial nerves II through XII grossly intact. No focal or lateralizing signs. PSYCH: Appropriate affect. Alert and oriented to person, place and time. CLINICAL LABS: White blood cell count normal, 7,3. Hemoglobin low 10.3. Sodium is low at 130. Lipase 1234 to 2018 ASSESSMENT: 1. Pancreatitis 2. Chronic renal failure on dialysis 3. Hyponatremia PLAN: 1. His lipase continues to elevate. Will plan to back down diet to ice chips. 2. Recommend correction of hyponatremia Objective - Vital Signs Vital signs: Vital Signs Temp 97.9 F 01/25/21 16:00 Pulse 68 01/25/21 16:00 Resp 16 01/25/21 16:00 BP 132/62 01/25/21 16:00 Pulse Ox 95 01/25/21 16:00 Intake & Output 01/25/21 01/25/21 01/26/21 06:59 18:59 06:59 Intake Total 918 Output Total 0 300 Balance 0 618 Weight 63 kg Intake: Oral 918 Output: Urine 0 Other 300 Other: Voiding Method CAPD CAPD # Voids 1 - Labs CBC & Chem 7: 01/29/21 08:44 01/31/21 05:27 Labs: Abnormal Lab Results - Last 24 Hours (Table) 01/25/21 01/25/21 Range/Units 06:32 06:32 Sodium 130 L (137-145) mmol/L Chloride 94 L (98-107) mmol/L BUN 43 H (9-20) mg/dL Creatinine 6.76 H (0.66-1.25) mg/dL Glucose 108 H (74-99) mg/dL Calcium 7.5 L (8.4-10.2) mg/dL Lipase 2018 H (23-300) U/L Assessment and Plan (1) Anemia of renal disease Status: Acute Priority: High Code(s): N18.9 - CHRONIC KIDNEY DISEASE, UNSPECIFIED; D63.1 - ANEMIA IN CHRONIC KIDNEY DISEASE SNOMED Code(s): 408098494 (2) Dialysis patient Status: Acute Code(s): Z99.2 - DEPENDENCE ON RENAL DIALYSIS SNOMED Code(s): 600875626 (3) ESRD (end stage renal disease) Status: Acute Code(s): N18.6 - END STAGE RENAL DISEASE SNOMED Code(s): 39528233 (4) Pancreatitis Status: Acute Code(s): K85.90 - ACUTE PANCREATITIS WITHOUT NECROSIS OR INFECTION, UNSP SNOMED Code(s): 77431103
[2021-01-26] MEDS: DIALYSIS (PERIT 1.5%) 2,500 ML 37.5 G/2,500 ML BAG INTRAPERIT SCH ×4 (03:31→22:20)
[2021-01-26] MEDS: PANTOPRAZOLE 40 MG TABLET PO SCH ×2 (05:34→18:01)
[2021-01-26] MEDS: SUCRALFATE 1 GM TAB PO SCH ×2 (05:34→18:01)
[2021-01-26 07:51] LABS: Calcium 7.5 mg/dL (8.4-10.2); Magnesium 1.9 mg/dL (1.6-2.3); Potassium 3.8 mmol/L (3.5-5.1)
[2021-01-26] MEDS ORDERED: POTASSIUM CHLORIDE ER 20 MEQ TAB.ER PO STA (08:51)
[2021-01-26] MEDS ORDERED: LACTULOSE 20 GM/30 ML CUP PO PRN (08:51)
--- NOTE | 2021-01-26 09:45 | P.PN ---
Subjective Patient is seen in follow-up for end-stage renal disease. He is maintained on peritoneal dialysis. Maintaining a net negative fluid balance. He is currently on ice chips only due to rising lipase levels. No chest pain or shortness of breath. Potassium level improved. Off IV fluids. Vital signs are stable. General: The patient appeared well nourished and normally developed. HEENT: Head exam is unremarkable. Neck is without jugular venous distension. LUNGS: Breath sounds decreased. HEART: Rate and Rhythm are regular. ABDOMEN: Soft, no distention noted. EXTREMITITES: No edema. Objective - Vital Signs Vital signs: Vital Signs Temp 98.5 F 01/26/21 03:46 Pulse 88 01/26/21 03:46 Resp 18 01/26/21 03:46 BP 140/90 01/26/21 03:46 Pulse Ox 95 01/26/21 03:46 Intake & Output 01/25/21 01/26/21 01/26/21 18:59 06:59 18:59 Intake Total 918 Output Total 300 0 Balance 618 0 Weight 63.5 kg Intake: Oral 918 Output: Urine 0 Stool 0 Other 300 Other: Voiding Method CAPD CAPD # Voids 0 - Labs CBC & Chem 7: 01/24/21 07:20 01/26/21 06:47 Labs: Abnormal Lab Results - Last 24 Hours (Table) 01/26/21 Range/Units 06:47 Sodium 127 L (137-145) mmol/L Chloride 91 L (98-107) mmol/L BUN 41 H (9-20) mg/dL Creatinine 6.65 H (0.66-1.25) mg/dL Glucose 100 H (74-99) mg/dL Calcium 7.5 L (8.4-10.2) mg/dL Assessment and Plan Plan: Assessment: 1. End-stage renal disease maintained on peritoneal dialysis. 2. Hyponatremia secondary to chronic kidney disease. Also having only ice chips at this time. 3. Hypokalemia from poor intake and PD losses. Being replaced. Better. 4. Acute pancreatitis. Lipase trending up. Surgery following. EGD and colonoscopy done this admission revealed duodenitis, erosive gastritis, hiatal hernia, long segment Sykes's esophagus as well as descending colon and rectal polyp. 5. Hypertension with chronic kidney disease. Stable. 6. Chronic systolic CHF with ejection fraction of 40-45% with moderate mitral regurgitation. 7. History of AAA repair with aortobiiliac stenting. 8. Covid-19 infection. Plan: Maintain 2.5 L exchanges every 6 hours with 1.5% dextrose solution. Resume normal saline at 50 mL an hour. Lactulose as needed for constipation.
[2021-01-26] MEDS: ASCORBIC ACID 500 MG TAB PO SCH (09:57)
[2021-01-26] MEDS: ZINC SULFATE 220 MG CAP PO SCH (09:57)
[2021-01-26] MEDS: CHOLECALCIFEROL 25 MCG (1000 IU) TABLET PO SCH (09:57)
[2021-01-26] MEDS: ATORVASTATIN 80 MG TAB PO SCH (09:58)
[2021-01-26] MEDS: METOPROLOL SUCCINATE (ER) 50 MG TAB.ER.24H PO SCH (09:58)
[2021-01-26] MEDS: amLODIPine 5 MG TAB PO SCH ×2 (09:58→20:01)
[2021-01-26] MEDS: DIALYSIS (PERIT 2.5%) 2,500 ML 62.5 G/2,500 ML BAG INTRAPERIT SCH (11:03)
[2021-01-26] MEDS: SODIUM CHLORIDE 0.9% 1,000 ML IV SCH (11:08)
[2021-01-26] MEDS: HYDROcodone/APAP 5-325MG 1 EACH TAB PO PRN ×2 (11:08→23:17)
--- NOTE | 2021-01-26 11:37 | P.PN ---
Subjective Progress Note Date: 01/26/21 Principal diagnosis: Acute pancreatitis. Recent diagnosis of Sykes's esophagitis Peritoneal dialysis at home, significant recent weight loss Mr. Fowler is a patient well-known to me who underwent EGD and colonoscopy during this hospital stay with a subsequent diagnosis of esophagitis with evidence of Sykes's esophagitis Recent diagnosis of pancreatitis is somewhat perplexing, patient had gallbladder removed, is a non-drinker, no CT evidence of pancreatitis, there is some data in the literature suggesting that proton pump inhibitors most specifically omeprazole can result in acute pancreatitis prior to this admission he had been on omeprazole for some time more than 2 years intermittently. The difficulty being the PPIs are the drug of choice for Sykes's, discussed this issue with Dr. Mcadams about an we've decided to trial Pepcid for approximately 10 days to see if the pancreatitis calms down and then resume PPIs if tolerable Stopped pantoprazole today, started famotidine 20 mg twice daily and follow closely Objective - Vital Signs Vital signs: Vital Signs Temp 98.5 F 01/26/21 03:46 Pulse 88 01/26/21 03:46 Resp 18 01/26/21 03:46 BP 140/90 01/26/21 03:46 Pulse Ox 95 01/26/21 03:46 Intake & Output 01/25/21 01/26/21 01/26/21 18:59 06:59 18:59 Intake Total 918 Output Total 300 0 Balance 618 0 Weight 63.5 kg Intake: Oral 918 Output: Urine 0 Stool 0 Other 300 Other: Voiding Method CAPD CAPD # Voids 0 - Exam General: [Patient awake, alert and oriented times 3. Patient in no acute distress.] HEENT: [PERRL. EOMI. No pharyngeal erythema or exudate.] Neck: [No adenopathy.] Cardiac: [Heart regular in rate and rhythm. No S3. No S4. No clicks, rubs. No murmur.] Lungs: [Clear to auscultation bilaterally.] Abdomen: [No mass. No organomegaly. Bowel sounds presnt and normoactive in all 4 quadrants.] Extremes: [No edema no cyanosis no claudication normal pulses] : Normal male genitalia Musculoskeletal: [No joint erythema, edema or tenderness.] Skin: [No rash.] Neurologic: [No lateralizing deficits. CN II - XII grossly intact.] Lymphatic: [No adenopathy.] - Labs CBC & Chem 7: 01/24/21 07:20 01/26/21 06:47 Labs: Abnormal Lab Results - Last 24 Hours (Table) 01/26/21 Range/Units 06:47 Sodium 127 L (137-145) mmol/L Chloride 91 L (98-107) mmol/L BUN 41 H (9-20) mg/dL Creatinine 6.65 H (0.66-1.25) mg/dL Glucose 100 H (74-99) mg/dL Calcium 7.5 L (8.4-10.2) mg/dL Assessment and Plan (1) AAA (abdominal aortic aneurysm) Current Visit: Yes Status: Acute Code(s): I71.4 - ABDOMINAL AORTIC ANEURYSM, WITHOUT RUPTURE SNOMED Code(s): 273331190 (2) COVID-19 Current Visit: Yes Status: Acute Code(s): U07.1 - COVID-19 SNOMED Code(s): 393518915 (3) Dialysis patient Current Visit: Yes Status: Acute Code(s): Z99.2 - DEPENDENCE ON RENAL DIALYSIS SNOMED Code(s): 468927509 (4) ESRD (end stage renal disease) Current Visit: Yes Status: Acute Code(s): N18.6 - END STAGE RENAL DISEASE SNOMED Code(s): 04111120 (5) Fall Current Visit: Yes Status: Acute Code(s): W19.XXXA - UNSPECIFIED FALL, INITIAL ENCOUNTER SNOMED Code(s): 4532550 (6) Hypokalemia Current Visit: Yes Status: Acute Code(s): E87.6 - HYPOKALEMIA SNOMED Code(s): 86122314 (7) Lactic acid acidosis Current Visit: Yes Status: Acute Code(s): E87.2 - ACIDOSIS SNOMED Code(s): 20177609 (8) Pancreatitis Current Visit: Yes Status: Acute Code(s): K85.90 - ACUTE PANCREATITIS WITHOUT NECROSIS OR INFECTION, UNSP SNOMED Code(s): 97541767 (9) Anemia of renal disease Current Visit: No Status: Acute Priority: High Code(s): N18.9 - CHRONIC KIDNEY DISEASE, UNSPECIFIED; D63.1 - ANEMIA IN CHRONIC KIDNEY DISEASE SNOMED Code(s): 837341108 Plan: Proposed EGD colonoscopy recent diagnoses of Sykes's esophagitis We will stop PPI short-term secondary to possibility of this being the cause of pancreatitis No CT evidence of pancreatitis, no gallbladder or gallstones, this patient is a non-drinker of alcoholic beverages There is evidence in the literature suggesting that PPIs or specifically omeprazole can be a single cause for acute pancreatitis As Mr. Fowler has been on omeprazole for at least a year probably 2 Will trial famotidine 20 mg twice daily and defer to GI We will reevaluate tomorrow patient is currently on sips with ice chips Time with Patient: Greater than 30
[2021-01-26] MEDS: FAMOTIDINE 20 MG TAB PO SCH ×2 (14:26→20:01)
--- NOTE | 2021-01-26 16:30 | P.PN ---
Subjective Progress Note Date: 01/26/21 CHIEF COMPLAINT: Pancreatitis HISTORY OF PRESENT ILLNESS: The patient is a 75-year-old male status post upper and lower endoscopy and had developed pancreatitis. He has history of chronic end-stage renal disease. His abdominal pain has improved with ice chips. His lipase continues to elevate. Lipase is partially excreted through kidneys as well. ROS: No fevers or chills. No new chest pain. No reports of blood in stools. PHYSICAL EXAM: VITAL SIGNS: Reviewed CONSTITUTIONAL: Well developed and in no acute distress. EYES: Conjuctivae without sclera icterus. Extraocular movements grossly intact. HEAD, EARS, NOSE, THROAT: Moist buccal mucosa. Head is atraumatic, normocephalic. Hears conversational speech. No nasal drainage. NECK: Supple. No thyroidomegaly. RESPIRATORY: Non-labored respirations and equal bilateral excursions. CARDIOVASCULAR: Regular rate. Regular rhythm. ABDOMEN: Has epigastric abdominal pain. No peritoneal. MUSCULOSKELETAL: No gross deformity of the lower extremities noted. No clubbing. No cyanosis. SKIN: Good skin turgor. Well perfused. NEUROLOGIC: Cranial nerves II through XII grossly intact. No focal or lateralizing signs. PSYCH: Appropriate affect. Alert and oriented to person, place and time. CLINICAL LABS: Sodium is lower from 130 to 127. Lipase 2018 up to 2497. ASSESSMENT: 1. Pancreatitis 2. Chronic renal failure on dialysis 3. Hyponatremia PLAN: 1. Patient is agreeable with one more day of bowel rest then may resume liquid diet cautiously. 2. Repeat CBC Objective - Vital Signs Vital signs: Vital Signs Temp 97.9 F 01/26/21 12:50 Pulse 84 01/26/21 12:50 Resp 18 01/26/21 12:50 BP 147/68 01/26/21 12:50 Pulse Ox 94 L 01/26/21 15:32 Intake & Output 01/25/21 01/26/21 01/26/21 18:59 06:59 18:59 Intake Total 918 Output Total 300 0 300 Balance 618 0 -300 Weight 63.5 kg Intake: Oral 918 Output: Urine 0 Stool 0 Other 300 300 Other: Voiding Method CAPD CAPD # Voids 0 - Labs CBC & Chem 7: 01/29/21 08:44 01/31/21 05:27 Labs: Abnormal Lab Results - Last 24 Hours (Table) 01/26/21 01/26/21 Range/Units 06:47 14:49 Sodium 127 L (137-145) mmol/L Chloride 91 L (98-107) mmol/L BUN 41 H (9-20) mg/dL Creatinine 6.65 H (0.66-1.25) mg/dL Glucose 100 H (74-99) mg/dL Calcium 7.5 L (8.4-10.2) mg/dL Lipase 2497 H (23-300) U/L Assessment and Plan (1) Hyponatremia Status: Acute Code(s): E87.1 - HYPO-OSMOLALITY AND HYPONATREMIA SNOMED Code(s): 18533397 (2) Anemia of renal disease Status: Acute Priority: High Code(s): N18.9 - CHRONIC KIDNEY DISEASE, UNSPECIFIED; D63.1 - ANEMIA IN CHRONIC KIDNEY DISEASE SNOMED Code(s): 552068143 (3) Dialysis patient Status: Acute Code(s): Z99.2 - DEPENDENCE ON RENAL DIALYSIS SNOMED Code(s): 815176594 (4) Pancreatitis Status: Acute Code(s): K85.90 - ACUTE PANCREATITIS WITHOUT NECROSIS OR INFECTION, UNSP SNOMED Code(s): 02217423
[2021-01-27] MEDS: DIALYSIS (PERIT 1.5%) 2,500 ML 37.5 G/2,500 ML BAG INTRAPERIT SCH ×5 (05:00→23:00)
[2021-01-27 08:39] LABS: Albumin 2.1 g/dL (3.5-5.0); Bilirubin,Unconjugated 0.4 mg/dL (0.0-1.1); Globulin 2.2 g/dL; Total Bilirubin 0.7 mg/dL (0.2-1.3); Total Protein 4.3 g/dL (6.3-8.2)
[2021-01-27] MEDS: SUCRALFATE 1 GM TAB PO SCH ×2 (10:20→17:33)
[2021-01-27] MEDS: ZINC SULFATE 220 MG CAP PO SCH (11:14)
[2021-01-27] MEDS: FAMOTIDINE 20 MG TAB PO SCH (11:15)
[2021-01-27] MEDS: METOPROLOL SUCCINATE (ER) 50 MG TAB.ER.24H PO SCH (11:15)
[2021-01-27] MEDS: CHOLECALCIFEROL 25 MCG (1000 IU) TABLET PO SCH (11:15)
[2021-01-27] MEDS: PANTOPRAZOLE 40 MG TABLET PO SCH ×2 (11:16→17:51)
[2021-01-27] MEDS: ASCORBIC ACID 500 MG TAB PO SCH (11:16)
[2021-01-27] MEDS: amLODIPine 5 MG TAB PO SCH ×2 (11:16→20:44)
[2021-01-27] MEDS: ATORVASTATIN 80 MG TAB PO SCH (11:17)
[2021-01-27] MEDS: SODIUM CHLORIDE 0.9% 1,000 ML IV SCH (11:17)
--- NOTE | 2021-01-27 11:32 | P.PN ---
Subjective Progress Note Date: 01/27/21 Principal diagnosis: Pancreatitis, Covid-19 infection Patient was seen and examined sitting up in his bed. He is without any acute changes through the night. He denies any nausea, vomiting, or abdominal pain. He states he's been on these chips, but advancing to clear liquid diet today. Objective - Vital Signs Vital signs: Vital Signs Temp 98.3 F 01/27/21 04:00 Pulse 78 01/27/21 06:10 Resp 17 01/27/21 06:10 BP 144/72 01/27/21 06:10 Pulse Ox 96 01/27/21 06:10 Intake & Output 01/26/21 01/27/21 01/27/21 18:59 06:59 18:59 Intake Total 400 Output Total 300 Balance -300 400 Weight 66.5 kg Intake: Intake, IV Titration 400 Amount Sodium Chloride 0.9% 1, 400 000 ml @ 50 mls/hr IV . Q20H [facility] Rx#:[id number] Output: Other 300 Other: Voiding Method CAPD # Voids 3 - Exam General appearance: The patient is alert, oriented, appears in no acute dis tress. HET: Head is normocephalic and atraumatic. Conjunctiva pink. Sclera anicteric. Neck: Supple without lymphadenopathy. Abdomen: Soft, nontender, nondistended with bowel sounds. No guarding or rigidity. Extremities: Normal skin color and turgor. No pedal edema Skin: No rashes, no jaundice Neurological: No focal deficits. Alert and oriented 3. - Labs CBC & Chem 7: 01/24/21 07:20 01/26/21 06:47 Labs: Abnormal Lab Results - Last 24 Hours (Table) 01/26/21 01/27/21 Range/Units 14:49 06:19 Total Protein 4.3 L (6.3-8.2) g/dL Albumin 2.1 L (3.5-5.0) g/dL Lipase 2497 H 3047 H (23-300) U/L Assessment and Plan (1) Pancreatitis Narrative/Plan: 75-year-old male with multiple medical comorbidities presenting after a episode of passing out. The patient had been prepping for an EGD and colonoscopy for evaluation of unintentional weight loss with approximately 30 pounds lost over the past few months. He had reported abdominal pain, nausea and vomiting over the few days prior to presentation. Patient had markedly elevated amylase and lipase 639 and 3074 on presentation and is currently being treated for acute uncomplicated pancreatitis. Lipase continues to increase, however patient denies any abdominal pain. Elev ation in lipase is likely related to end-stage renal disease on hemodialysis. DOE and IgG ordered and pending. Triglycerides were normal, 110. Current Visit: Yes Status: Acute Code(s): K85.90 - ACUTE PANCREATITIS WITHO UT NECROSIS OR INFECTION, UNSP SNOMED Code(s): 64831245 (2) Vomiting Current Visit: Yes Status: Acute Code(s): R11.10 - VOMITING, UNSPECIFIED SNOMED Code(s): 018730236 (3) COVID-19 Current Visit: Yes Status: Acute Code(s): U07.1 - COVID-19 SNOMED Code(s): 502332701 (4) ESRD (end stage renal disease) Current Visit: Yes Status: Acute Code(s): N18.6 - END STAGE RENAL DISEASE SNOMED Code(s): 59455384 Plan: Supportive care Triglycerides ordered DOE, IgG4 ordered and pending Status post EGD and colonoscopy May increase diet as tolerated Thank you for this consultation, elevation in lipase likely related to end-stage renal disease on hemodialysis. Patient may follow-up in 1-2 weeks in outpatient setting. We will sign off at this time. Dr. Espinoza I agree with the dictator's note, documented as a scribe by Lakshmi Mayberry.
--- NOTE | 2021-01-27 11:43 | P.PN ---
<Reina White - Last Filed: 01/27/21 11:31> Subjective Progress Note Date: 01/27/21 CHIEF COMPLAINT: Abdominal pain HISTORY OF PRESENT ILLNESS: Patient is still complaining of mid upper abdominal pain. He reports that his pain may be a little better. His lipase had continued to increase over the weekend and his diet was downgraded to nothing by mouth except for ice chips and medications. His lipase continues to increase and is 3047 today. Afebrile. GI service has advance diet to clear liquids. PHYSICAL EXAM: VITAL SIGNS: Reviewed. GENERAL: Well-developed in no acute distress. HEENT: No sclera icterus. Extraocular movements grossly intact. Moist buccal mucosa. Head is atraumatic, normocephalic. ABDOMEN: Soft. Nondistended. Epigastric tenderness NEUROLOGIC: Alert and oriented. Cranial nerves II through XII grossly intact. ASSESSMENT: 1. Pancreatitis 2. Epigastric abdominal pain. Status post EGD and colonoscopy with results showing duodenitis, erosive gastritis, hiatal hernia, long segment Sykes's esophagus, distending colon polyp and rectal polyp. PLAN: -Computed tomography scan of the abdomen with contrast and pancreas protocol will be ordered by Dr. Godwin -Continue Protonix -Continue to monitor lipase -Further recommendations forthcoming per surgeon Physician Spa Technician note has been reviewed by physician. Signing provider agrees with the documented findings, assessment, and plan of care. Objective - Vital Signs Vital signs: Vital Signs Temp 97.5 F L 01/27/21 11:22 Pulse 85 01/27/21 11:22 Resp 16 01/27/21 11:22 BP 156/79 01/27/21 11:22 Pulse Ox 94 L 01/27/21 11:22 Intake & Output 01/26/21 01/27/21 01/27/21 18:59 06:59 18:59 Intake Total 400 Output Total 300 Balance -300 400 Weight 66.5 kg Intake: Intake, IV Titration 400 Amount Sodium Chloride 0.9% 1, 400 000 ml @ 50 mls/hr IV . Q20H [facility] Rx#:[id number] Output: Other 300 Other: Voiding Method CAPD # Voids 3 - Labs CBC & Chem 7: 01/24/21 07:20 01/26/21 06:47 Labs: Abnormal Lab Results - Last 24 Hours (Table) 01/26/21 01/27/21 Range/Units 14:49 06:19 Total Protein 4.3 L (6.3-8.2) g/dL Albumin 2.1 L (3.5-5.0) g/dL Lipase 2497 H 3047 H (23-300) U/L <CitlaliAbbe - Last Filed: 01/27/21 14:08> Subjective As above. Patient with increasing lipase. Discussed with nephrology. Not related to the patient's peritoneal dialysis for renal failure. Etiology remains unclear. We'll repeat CT with pancreatic protocol with IV contrast. This has been cleared by nephrology. Objective - Vital Signs Vital signs: Vital Signs Temp 97.5 F L 01/27/21 11:22 Pulse 85 01/27/21 11:22 Resp 16 01/27/21 11:22 BP 156/79 01/27/21 11:22 Pulse Ox 94 L 01/27/21 11:22 Intake & Output 01/26/21 01/27/21 01/27/21 18:59 06:59 18:59 Intake Total 400 Output Total 300 Balance -300 400 Weight 66.5 kg Intake: Intake, IV Titration 400 Amount Sodium Chloride 0.9% 1, 400 000 ml @ 50 mls/hr IV . Q20H [facility] Rx#:[id number] Output: Other 300 Other: Voiding Method CAPD # Voids 3 - Labs CBC & Chem 7: 01/24/21 07:20 01/27/21 06:19 Labs: Abnormal Lab Results - Last 24 Hours (Table) 01/26/21 01/27/21 01/27/21 Range/Units 14:49 06:19 06:19 Sodium 131 L (135-145) mmol/L Chloride 95 L (96-109) mmol/L BUN 44.0 H (9.0-27.0) mg/dL Creatinine 6.2 H (0.6-1.5) mg/dL Est GFR (CKD-EPI)AfAm 9.3 L (60.0-200.0) Est GFR (CKD-EPI)NonAf 8.0 L (60.0-200.0) BUN/Creatinine Ratio 7.10 L (12.00-20.00) Ratio Calcium 7.4 L (8.7-10.3) mg/dL Total Protein 4.3 L (6.3-8.2) g/dL Albumin 2.1 L (3.5-5.0) g/dL Lipase 2497 H 3047 H (23-300) U/L Assessment and Plan (1) Pancreatitis Current Visit: Yes Status: Acute Code(s): K85.90 - ACUTE PANCREATITIS WITHOUT NECROSIS OR INFECTION, UNSP SNOMED Code(s): 84829468
--- NOTE | 2021-01-27 11:43 | P.PN ---
Subjective Patient is seen in follow-up for end-stage renal disease. He is maintained on peritoneal dialysis. No problems with exchanges. Denies abdominal pain. Now on clear liquid diet. No chest pain or shortness of breath. Potassium level improved. Maintained on normal saline. No labs today. Vital signs are stable. General: The patient appeared well nourished and normally developed. HEENT: Head exam is unremarkable. Neck is without jugular venous distension. LUNGS: Breath sounds decreased. HEART: Rate and Rhythm are regular. ABDOMEN: Soft, no distention noted. EXTREMITITES: No edema. Objective - Vital Signs Vital signs: Vital Signs Temp 97.5 F L 01/27/21 11:22 Pulse 85 01/27/21 11:22 Resp 16 01/27/21 11:22 BP 156/79 01/27/21 11:22 Pulse Ox 94 L 01/27/21 11:22 Intake & Output 01/26/21 01/27/21 01/27/21 18:59 06:59 18:59 Intake Total 400 Output Total 300 Balance -300 400 Weight 66.5 kg Intake: Intake, IV Titration 400 Amount Sodium Chloride 0.9% 1, 400 000 ml @ 50 mls/hr IV . Q20H [facility] Rx#:[id number] Output: Other 300 Other: Voiding Method CAPD # Voids 3 - Labs CBC & Chem 7: 01/24/21 07:20 01/26/21 06:47 Labs: Abnormal Lab Results - Last 24 Hours (Table) 01/26/21 01/27/21 Range/Units 14:49 06:19 Total Protein 4.3 L (6.3-8.2) g/dL Albumin 2.1 L (3.5-5.0) g/dL Lipase 2497 H 3047 H (23-300) U/L Assessment and Plan Plan: Assessment: 1. End-stage renal disease maintained on peritoneal dialysis. 2. Hyponatremia secondary to chronic kidney disease. Now on clear liquid diet. 3. Hypokalemia from poor intake and PD losses. Being replaced. Better. 4. Acute pancreatitis. Lipase trending up. Surgery following. EGD and colonoscopy done this admission revealed duodenitis, erosive gastritis, hiatal hernia, long segment Sykes's esophagus as well as descending colon and rectal polyp. 5. Hypertension with chronic kidney disease. Stable. 6. Chronic systolic CHF with ejection fraction of 40-45% with moderate mitral regurgitation. 7. History of AAA repair with aortobiiliac stenting. 8. Covid-19 infection. Plan: Maintain 2.5 L exchanges every 6 hours with 1.5% dextrose solution. Resume normal saline at 50 mL an hour. Lactulose as needed for constipation. Check labs today. Discussed with surgery. May need another CAT scan to look for underlying malignancy.
[2021-01-27 12:13] LABS: African American GFR (CKD) 9.3 (60.0-200.0); Anion Gap 6.7 mmol/L (4.00-12.00); BUN/Creat Ratio 7.1 Ratio (12.00-20.00); Calcium 7.4 mg/dL (8.7-10.3); Carbon Dioxide 29.3 mmol/L (21.6-31.8); Magnesium 1.7 mg/dL (1.5-2.4); Potassium 3.7 mmol/L (3.5-5.5)
--- NOTE | 2021-01-27 12:58 | P.PN ---
Subjective Progress Note Date: 01/27/21 This is a 75-year-old gentleman with past medical history of hypertension, end- stage renal disease on peritoneal dialysis, abdominal aortic aneurysm-status post stent placement, bilateral renal artery stents, moderate mitral regurgitation,former nicotine dependence prided into the ER via EMS status post fall. He reports standing up at the sink in water and the next thing he knew, he was waking up on the floor. Denies incontinence of urine or bowel movement, believes he hit his head. Reports mid epigastric abdominal pain accompanied by nausea and vomiting 3 days. Currently no abdominal pain, nausea and vomiting have responded to Zofran. Reports neck and right shoulder pain that has been present for about 3 weeks secondary to prior fall. Denies fevers, dyspnea. Denies lightheadedness, dizziness or focal deficits. Denies back pain. Denies chest pain, palpitations or shortness of breath. Worsening renal function. Reports compliant with his peritoneal dialysis. Last peritoneal dialysis was last night.Patient initially was scheduled today with Dr. Godwin for endoscopy procedure related to unexplained 15-20 pound weight loss over the last few months.Vital signs stable, maintaining O2 sats in the 90s on room air.Afebrile, WBC 13.3. Hemoglobin 14.8, platelets 154, INR 1. Sodium 137, potassium 2.9 BUN 49, creatinine 10.48. Magnesium 3.3 Plasma lactic acid on admission 4.6, with IV fluid hydration down to 2.8 T bili, LFTs within normal limits. Amylase 639, lipase 2074 Positive for coronavirus. Right shoulder x-ray reporting no acute fracture or dislocation, osteoarthritis( history of trauma 3 weeks prior). Head/C-spine CT reported No acute fracture or dislocation of the C-spine, no acute intracranial hemorrhage, mass effect or midline shift, comminuted Medial right clavicular fracture of questionable age. Chest x-ray reporting pneumoperitoneum, para esophageal hernia with partial intrathoracic stomach. Abdominal ultrasound reporting moderate ascites, only partial visualization of pancreas, possible cirrhosis, right renal atrophy. Abdominal pelvis CT reported slight interval growth of abdominal aortic aneurysm, and endoleak not excluded, atrophic kidneys, ascites, postprocedural changes. 01/22/2021 maintained on IV fluid hydration, nausea 1 this morning-received Zofran, feeling better .received multiple potassium supplements, currently up to 3.7 . BUN 61, creatinine 10.13. Currently maintained on CAPD exchanges. Amylase and lipase trending down, 422 in 1045 evaluated by surgery, reviewed CT, reporting free fluid and pneumoperitoneum consistent with indwelling PD cath. Patient initially scheduled for EGD and colonoscopy yesterday and had been taking a bowel prep, surgery discussing proceeding with EGD/colonoscopy inpatient. Afebrile. Hypertensive. 01/23/2021 labs pending. NPO, scheduled for EGD and colonoscopy today. Denies nausea, vomiting. Denies abdominal pain. Denies chest pain, palpitations or shortness of breath. Norvasc added yesterday. Systolic pressures ranging in the 120s to 150s. Maintaining O2 sats in the 90s on 2 L nasal cannula, O2 sat on room air 89%. 01/24/2021 and sitting up in chair, complaining of mild dizziness and mild right upper quadrant abdominal pain. Lipase increased to 1234. Tolerating regular diet, denies nausea/emesis. Patient underwent EGD and colonoscopy yesterday, tolerated procedure well. EGD revealed duodenitis, erosive gastritis and a hiatal hernia and a long segment of Sykes's esophagus. Colonoscopy revealed colon polyp and rectal polyp with polypectomy. Potassium 2.9, receiving potassium supplements. Creatinine 7.29. Sodium 129, IV fluids discontinued. Denies chest pain, palpitations or shortness of breath. (01/26/2021 Mr. Fowler is a patient well-known to me who underwent EGD and colonoscopy during this hospital stay with a subsequent diagnosis of esophagitis with evidence of Sykes's esophagitis Recent diagnosis of pancreatitis is somewhat perplexing, patient had gallbladder removed, is a non-drinker, no CT evidence of pancreatitis, there is some data in the literature suggesting that proton pump inhibitors most specifically omeprazole can result in acute pancreatitis prior to this admission he had been on omeprazole for some time more than 2 years intermittently. The difficulty being the PPIs are the drug of choice for Sykes's, discussed this issue with Dr. Mcadams about an we've decided to trial Pepcid for approximately 10 days to see if the pancreatitis calms down and then resume PPIs if tolerable Stopped pantoprazole today, started famotidine 20 mg twice daily and follow closely.) 01/27/2021 lipase continues increasing, up to 3047. Patient is asymptomatic, no nausea vomiting or diarrhea, no abdominal pain. Patient's diet had been mary lou ngraded, placed on bowel rest, tolerated ice chips throughout the night. Reports positive bowel movement yesterday. Maintained on gentle IV fluid hydration with sodium 131, creatinine 6.2, magnesium 1.7. Continue on peritoneal dialysis .Denies chest pain, palpitations or shortness of breath. Pathology noted, reporting chronic and acute peptic peptic duodenitis, reactive /chemical gastropathy, H. pylori not identified, Sykes's mucosa negative for dysplasia, ascending colon and rectum biopsy reporting tubular adenoma. Afebrile. Objective - Vital Signs Vital signs: Vital Signs Temp 97.5 F L 01/27/21 11:22 Pulse 85 01/27/21 11:22 Resp 16 01/27/21 11:22 BP 156/79 01/27/21 11:22 Pulse Ox 94 L 01/27/21 11:22 Intake & Output 01/26/21 01/27/21 01/27/21 18:59 06:59 18:59 Intake Total 400 Output Total 300 Balance -300 400 Weight 66.5 kg Intake: Intake, IV Titration 400 Amount Sodium Chloride 0.9% 1, 400 000 ml @ 50 mls/hr IV . Q20H ALEX Rx#:[id number] Output: Other 300 Other: Voiding Method CAPD # Voids 3 - Exam - Exam GENERAL: Sitting up in bed, no acute distress HEAD: Atraumatic, normocephalic. EYES: Pupils equal round and reactive to light, sclera anicteric, conjunctiva normal. ENT:nares patent, oropharynx clear without exudates. NECK: Normal range of motion, supple without lymphadenopathy or JVD, no thyromegaly. LUNGS: Nonlabored, Diminished throughout.No wheezes or rhonchi. No crackles HEART: Regular rate and rhythm without murmurs, rubs or gallops.S1S2 Normal ABDOMEN: Soft, nondistended, minimal right upper quadrant tenderness, normoactive bowel sounds. No guarding, no rebound. EXTREMITIES: Normal range of motion, no edema, No clubbing or cyanosis. NEUROLOGICAL: Cranial nerves II through XII grossly intact. No focal deficits. SKIN: Warm, Dry, no rashes noted. - Labs CBC & Chem 7: 01/24/21 07:20 01/26/21 06:47 Labs: Abnormal Lab Results - Last 24 Hours (Table) 01/26/21 01/27/21 Range/Units 14:49 06:19 Total Protein 4.3 L (6.3-8.2) g/dL Albumin 2.1 L (3.5-5.0) g/dL Lipase 2497 H 3047 H (23-300) U/L Assessment and Plan Assessment: -Abdominal pain, status post fall, acute pancreatitis-etiology unclear, -Dehydration secondary to the above -Lactic acidosis -COVID-19 -Severe hypokalemia -Acute on chronic, end-stage renal disease, on PD -Syncope, etiology unclear, suspect multifactorial ,related to all the above, workup in progress. -Pneumoperitoneum, related to peritoneal dialysis catheter as per surgery review of CT. -Right shoulder and neck pain of 3 weeks status post prior fall, comminuted fracture of the medial aspect of right clavicle per CT -Weight loss of 30 pounds over the last few months, unintentional. Status post EGD and colonoscopy reporting duodenitis, erosive gastritis and a hiatal hernia and a long segment of Sykes's esophagus, colon polyp and rectal polyp with oliver ypectomy. Pathology reporting chronic and acute peptic duodenitis, tubular adenoma in ascending colon and rectum biopsy-will require close surveillance OP. -Hyponatremia - History of Bilateral renal artery stents 2018 , revascularization unsuccessful on last admission -Acute hypoxic respiratory failure, secondary to the above -Chronic CHF exacerbation, systolic dysfunction EF 45-50%. -Hypertension -Anemia of chronic disease, iron deficient -AAA, status post stent placement, slight interval growth, possible endoleak not excluded as per CT, 7.9 cm(previous exam measured 7.7 cm) -Former nicotine dependence -Moderate mitral regurgitation -Mild pulmonary hypertension -History of Nonspecific 12 x 0.6 cm lung opacity, follow-up OP rec. Plan: Continue on current medication regime ,monitoring and symptomatic treatment. Gentle IV fluid hydration. Peritoneal dialysis and electrolyte replacement as per nephrology. Pathology reporting tubular adenoma in ascending colon and rectum biopsy-will require close surveillance OP- further recommendations as per GI/surgery.Mr. Fowler has been on omeprazole for at least a year,trialing famotidine 20 mg twice daily-defer to GI. Diet advanced as per GI to clear liquids. The impression and plan of care has been dictated as directed. : I performed a history and examination of this patient, discussed the same with the dictator. I agree with the dictator's note ,documented as a scribe. Any additional findings or plans will be noted. The impression and plan of care has been dictated as directed. .: I performed a history and examination of this patient, discussed the same with the dictator. I agree with the dictator's note ,documented as a scribe. Any additional findings or plans will be noted.
[2021-01-27] MEDS: HYDROcodone/APAP 5-325MG 1 EACH TAB PO PRN (23:54)
[2021-01-28] MEDS: SODIUM CHLORIDE 0.9% 1,000 ML IV SCH ×2 (03:26→23:56)
[2021-01-28] MEDS: DIALYSIS (PERIT 1.5%) 2,500 ML 37.5 G/2,500 ML BAG INTRAPERIT SCH ×4 (04:42→21:54)
--- NOTE | 2021-01-28 07:26 | CT ---
"EXAMINATION TYPE: CT pancreas biphase DATE OF EXAM: 01/27/2021 COMPARISON: CT abdomen and pelvis January 21, 2021 and older CTs HISTORY: pancreatitis CT DLP: 616.3 mGycm, Automated Exposure Control for Dose Reduction was Utilized. CONTRAST: CT scan of the abdomen is performed with oral water and with IV Contrast, patient injected with 80 mL of Isovue 370. FINDINGS: LUNG BASES: New at least small bilateral pleural effusions with associated compressive atelectasis. LIVER/GB: Cholecystectomy clips are redemonstrated. PANCREAS: Pancreas size is stable and felt within normal limits. No areas of nonenhancement seen. No concerning solid or cystic masses or ductal dilatation noted. SPLEEN: No significant abnormality is seen. ADRENALS: Stable thickening to bilateral adrenal limbs could reflect benign lipid rich hyperplasia. KIDNEYS: Asymmetric left renal cortical volume loss is redemonstrated. Renal size is symmetric and sm all in size. No new hydronephrosis. BOWEL: Small to moderate-sized hiatal hernia is redemonstrated. The previous visualized paraesophag eal hernia has resolved or is not identified. Poor distention of bowel despite use of oral water make s evaluation suboptimal. Stomach poorly distended and thus suboptimally evaluated. No suspicious smal l or large bowel dilatation. There is persistent severe concentric focal wall thickening in the mid t ransverse colon over roughly just over 1.0 cm segment axial image 66 series 201 and coronal image 22 series 202. Concentric or apple core-type neoplasm cannot be excluded. Follow-up advised. LYMPH NODES: No new greater than 1cm abdominal lymph nodes are appreciated. OSSEOUS STRUCTURES: Slight underlying levoconvex scoliotic curvature centered at L2-L3 level with dis c calcification and bridging left spur redemonstrated.. OTHER: Persistent percutaneous peritoneal dialysis catheter in the right abdomen. Moderate intra-abdo saurabh ascites perhaps slightly less prominent from most recent CT. From free air redemonstrated presu med product of daily peritoneal dialysis. Redemonstration of large [place] AAA with local mass effect measuring 7.1 x 7.6 cm axial image 107 not significantly changed from most recent study. This exam does not extend through the iliac bifurcatio n. There is patency of the visualized portion of the stent graft redemonstrated. Note is made of bila teral proximal renal artery stents which are both occluded similar to prior studies. There is suspect ed perfusion from smaller collateral vessels. IMPRESSION: 1. No CT evidence for complication related to acute pancreatitis. Pancreas appears similar to prior s tudies. 2. Known peritoneal dialysis catheter. Moderate amount of intra-abdominal ascites slightly less promi nent from most recent CT presumed product of peritoneal dialysis and chronic renal failure. At least Small bilateral pleural effusions new from most recent CT, correlate clinically. 3. Suspicious lesion mid transverse colon worrisome for neoplasm. Colonoscopy follow-up advised if weaver s not been performed in last 3 years. A Yellow level critical message alert has been initiated for Abbe Godwin MD via the [employer] [facility] 0 | Critical Results System on 01/28/2021 7:24 AM. This message alert has been sent to Abbe Godwin MD via the preferences provided by the clinician for the receipt of Radiology Critical Findings. Mess age ID [id number]."
[2021-01-28] MEDS: ASCORBIC ACID 500 MG TAB PO SCH (09:14)
[2021-01-28] MEDS: PANTOPRAZOLE 40 MG TABLET PO SCH ×2 (09:15→17:00)
[2021-01-28] MEDS: SUCRALFATE 1 GM TAB PO SCH ×2 (09:15→17:00)
[2021-01-28] MEDS: ATORVASTATIN 80 MG TAB PO SCH (09:15)
[2021-01-28] MEDS: FAMOTIDINE 20 MG TAB PO SCH (09:15)
[2021-01-28] MEDS: ZINC SULFATE 220 MG CAP PO SCH (09:15)
[2021-01-28] MEDS: CHOLECALCIFEROL 25 MCG (1000 IU) TABLET PO SCH (09:15)
[2021-01-28] MEDS: METOPROLOL SUCCINATE (ER) 50 MG TAB.ER.24H PO SCH (09:15)
[2021-01-28] MEDS: amLODIPine 5 MG TAB PO SCH ×2 (09:15→21:54)
[2021-01-28 09:47] LABS: African American GFR (CKD) 9.7 (60.0-200.0); Anion Gap 7.8 mmol/L (4.00-12.00); BUN/Creat Ratio 6.67 Ratio (12.00-20.00); Calcium 7.6 mg/dL (8.7-10.3); Carbon Dioxide 29.2 mmol/L (21.6-31.8); Magnesium 1.6 mg/dL (1.5-2.4); Non-African American GFR(CKD) 8.3 (60.0-200.0); Potassium 3.8 mmol/L (3.5-5.5)
--- NOTE | 2021-01-28 11:49 | P.PN ---
Subjective Patient is seen in follow-up for end-stage renal disease. He is maintained on peritoneal dialysis. No problems with exchanges. Denies abdominal pain. Now on clear liquid diet. No chest pain or shortness of breath. Potassium level improved. Maintained on normal saline. No active complaints. Lipase level is trending down. Vital signs are stable. General: The patient appeared well nourished and normally developed. HEENT: Head exam is unremarkable. Neck is without jugular venous distension. LUNGS: Breath sounds decreased. HEART: Rate and Rhythm are regular. ABDOMEN: Soft, no distention noted. EXTREMITITES: No edema. Objective - Vital Signs Vital signs: Vital Signs Temp 97.7 F 01/28/21 10:00 Pulse 85 01/28/21 10:00 Resp 18 01/28/21 10:00 BP 135/72 01/28/21 10:00 Pulse Ox 97 01/28/21 10:00 Intake & Output 01/27/21 01/28/21 01/28/21 18:59 06:59 18:59 Intake Total 360 300 Output Total 0 Balance 360 300 Weight 66.5 kg 70 kg Intake: IV 360 Sodium Chloride 0.9% 1, 360 000 ml @ 60 mls/hr IV . [id number] ALEX Rx#:[id number] Intake, IV Titration 300 Amount Sodium Chloride 0.9% 1, 300 000 ml @ 50 mls/hr IV . Q20H ALEX Rx#:[id number] Output: Urine 0 - Labs CBC & Chem 7: 01/24/21 07:20 01/28/21 06:38 Labs: Abnormal Lab Results - Last 24 Hours (Table) 01/27/21 01/28/21 Range/Units 06:19 06:38 Sodium 131 L 132 L (135-145) mmol/L Chloride 95 L 95 L (96-109) mmol/L BUN 44.0 H 40.0 H (9.0-27.0) mg/dL Creatinine 6.2 H 6.0 H (0.6-1.5) mg/dL Est GFR (CKD-EPI)AfAm 9.3 L 9.7 L (60.0-200.0) Est GFR (CKD-EPI)NonAf 8.0 L 8.3 L (60.0-200.0) BUN/Creatinine Ratio 7.10 L 6.67 L (12.00-20.00) Ratio Glucose 123 H (70-110) mg/dL Calcium 7.4 L 7.6 L (8.7-10.3) mg/dL Lipase 614 H (14-60) U/L Assessment and Plan Plan: Assessment: 1. End-stage renal disease maintained on peritoneal dialysis. 2. Hyponatremia secondary to chronic kidney disease. Now on clear liquid diet. Improving. 3. Hypokalemia from poor intake and PD losses. Being replaced. Better. 4. Acute pancreatitis. Lipase better today. Surgery following. EGD and colonoscopy done this admission revealed duodenitis, erosive gastritis, hiatal hernia, long segment Sykes's esophagus as well as descending colon and rectal polyp. 5. Hypertension with chronic kidney disease. Stable. 6. Chronic systolic CHF with ejection fraction of 40-45% with moderate mitral regurgitation. 7. History of AAA repair with aortobiiliac stenting. 8. Covid-19 infection. Plan: Maintain 2.5 L exchanges every 6 hours with 1.5% dextrose solution. Maintain normal saline at 50 mL an hour. Lactulose as needed for constipation. I will give him 2 doses of IV albumin today. Replace magnesium as well.
--- NOTE | 2021-01-28 11:51 | CDI ---
Documentation Clarification Form Date: 01/28/2021 11:37:37 AM From: Juanita Benjamin CCS, CCDS Admit Date: 01/21/2021 09:38:00 AM Patient Name: Yevgeniy Fowler Visit Number: [id number] Discharge Date: ATTENTION: The Clinical Documentation Specialists (CDI) and [facility] Coding Staff appreciate your assistance in clarifying documentation. Please respond to the clarification below the line at the bottom and electronically sign. The CDI & [facility] Coding staff will review the response and follow-up if needed. Please note: Queries are made part of the Legal Health Record. If you have any questions, please contact the author of this message via ITS. Dr. Shaq Starr: Per the 01/21 History & Physical: "Patient initially was scheduled today with Dr. Godwin (general surgeon) for endoscopy procedure related to unexplained 15-20 pound weight loss, etiology unclear, over the last few months. Per the 01/21 Gastrointestinal Consult: "The patient had been prepping for an EGD and colonoscopy for evaluation of unintentional weight loss with approximately 30 pounds lost over the past few months." History/Risk Factors per the patient's Past Medical History: Hypertension, AAA with stent, ESRD on Peritoneal Dialysis, Former smoker. Clinical Indicators: Presented to the ED on 01/21 after a fall at home, complaining of mild neck pain, fall was 3 weeks prior, also complained of shoulder pain. Feels weak all over with abdominal pain & vomiting 4-5 days. ED Clinical Impression: Pneumoperitoneum, Acute Pancreatitis, Right Clavicle Fracture, Lactic Acidosis, Hypokalemia, COVID Positive. 01/21: Weight: 52.5 kg (bedscale), Height 5 ft 6 in, BMI: 18.6 Underweight; Calculated IBW 64.41 kg, % IBW: 82% 01/21 LAB: WBC 13.3, Neut 12.1, Lymph 0.7, K 2.1, Cl 89, BUN 49, Creatinine 10.48, GFR 4, glucose 179, Lactic Acid 4.6 - 2.8 - 2.0; Magnesium 3.3, Amylase 639, Lipase 3074, total Protein 6.9, Albumin 3.9. 01/21 COVID Positive. Treatment: Oral Supplements: ensure clear: TID 240 kcal/serving, Fat modified diet. Dietary Consult: Not consulted. Nursing Nutritional Assessement: Nutritional intake poor, 0-25% consumed, Clear liquid diet, On antiemetic, PPI & statin, complaining of epigastric pain & nausea. In your professional opinion, can you please clarify if these findings signify one of the following conditions? _--->>>> Mild Protein-Calorie Malnutrition Moderate Protein-Calorie Malnutrition Other Severity of Protein-Calorie Malnutrition Other condition, please specify Unable to determine (Last Revision: May 2019) MTDD
[2021-01-28 12:29] LABS: IgG Subclass 3 33.1 mg/dL (11.0-85.0); IgG Subclass 4 9.2 mg/dL (3.0-175.0)
[2021-01-28] MEDS: ALBUMIN HUMAN 25% 50 ML in EMPTY BAG 1 BAG IVPB SCH ×4 (13:32→20:54)
[2021-01-28] MEDS: MAGNESIUM SULFATE-D5W PMX 1 GM in DEXTROSE/WATER 1 100ML.BAG IVPB SCH ×2 (13:33→16:22)
--- NOTE | 2021-01-28 15:02 | P.PN ---
Subjective Progress Note Date: 01/28/21 Principal diagnosis: Abdominal pain As above. Patient says his pain is for the most part resolved. No nausea or vomiting. Tolerating clear liquids. Today's lipase values improved. CAT scan pancreas shows no pancreatic abnormalities however radiology suspecting possible lesion in the mid transverse colon. The patient's recent colonoscopy was noted to have a suboptimal prep however no mass lesion or large polyps were seen. Objective - Vital Signs Vital signs: Vital Signs Temp 97.7 F 01/28/21 10:00 Pulse 85 01/28/21 10:00 Resp 18 01/28/21 10:00 BP 135/72 01/28/21 10:00 Pulse Ox 97 01/28/21 10:00 Intake & Output 01/27/21 01/28/21 01/28/21 18:59 06:59 18:59 Intake Total 360 300 Output Total 0 Balance 360 300 Weight 66.5 kg 70 kg Intake: IV 360 Sodium Chloride 0.9% 1, 360 000 ml @ 60 mls/hr IV . [id number] ALEX Rx#:[id number] Intake, IV Titration 300 Amount Sodium Chloride 0.9% 1, 300 000 ml @ 50 mls/hr IV . Q20H ALEX Rx#:[id number] Output: Urine 0 - Exam Abdomen: Soft, nontender, nondistended - Labs CBC & Chem 7: 01/24/21 07:20 01/28/21 06:38 Labs: Abnormal Lab Results - Last 24 Hours (Table) 01/27/21 01/28/21 Range/Units 06:19 06:38 Sodium 132 L (135-145) mmol/L Chloride 95 L (96-109) mmol/L BUN 40.0 H (9.0-27.0) mg/dL Creatinine 6.0 H (0.6-1.5) mg/dL Est GFR (CKD-EPI)AfAm 9.7 L (60.0-200.0) Est GFR (CKD-EPI)NonAf 8.3 L (60.0-200.0) BUN/Creatinine Ratio 6.67 L (12.00-20.00) Ratio Glucose 123 H (70-110) mg/dL Calcium 7.6 L (8.7-10.3) mg/dL Lipase 614 H (14-60) U/L IgG1 360.0 L (405.0-1011.0) mg/dL Assessment and Plan (1) Pancreatitis Narrative/Plan: Continue clear liquids. Because the patient has been on liquids for the last several days Will order a barium enema for tomorrow to be done by radiology to evaluate the possible transverse colon lesion. Will follow. Current Visit: Yes Status: Acute Code(s): K85.90 - ACUTE PANCREATITIS WITHOUT NECROSIS OR INFECTION, UNSP SNOMED Code(s): 72386728
--- NOTE | 2021-01-28 15:03 | P.PN ---
Subjective Progress Note Date: 01/28/21 This is a 75-year-old gentleman with past medical history of hypertension, end- stage renal disease on peritoneal dialysis, abdominal aortic aneurysm-status post stent placement, bilateral renal artery stents, moderate mitral regurgitation,former nicotine dependence prided into the ER via EMS status post fall. He reports standing up at the sink in water and the next thing he knew, he was waking up on the floor. Denies incontinence of urine or bowel movement, believes he hit his head. Reports mid epigastric abdominal pain accompanied by nausea and vomiting 3 days. Currently no abdominal pain, nausea and vomiting have responded to Zofran. Reports neck and right shoulder pain that has been present for about 3 weeks secondary to prior fall. Denies fevers, dyspnea. Denies lightheadedness, dizziness or focal deficits. Denies back pain. Denies chest pain, palpitations or shortness of breath. Worsening renal function. Reports compliant with his peritoneal dialysis. Last peritoneal dialysis was last night.Patient initially was scheduled today with Dr. Godwin for endoscopy procedure related to unexplained 15-20 pound weight loss over the last few months.Vital signs stable, maintaining O2 sats in the 90s on room air.Afebrile, WBC 13.3. Hemoglobin 14.8, platelets 154, INR 1. Sodium 137, potassium 2.9 BUN 49, creatinine 10.48. Magnesium 3.3 Plasma lactic acid on admission 4.6, with IV fluid hydration down to 2.8 T bili, LFTs within normal limits. Amylase 639, lipase 2074 Positive for coronavirus. Right shoulder x-ray reporting no acute fracture or dislocation, osteoarthritis( history of trauma 3 weeks prior). Head/C-spine CT reported No acute fracture or dislocation of the C-spine, no acute intracranial hemorrhage, mass effect or midline shift, comminuted Medial right clavicular fracture of questionable age. Chest x-ray reporting pneumoperitoneum, para esophageal hernia with partial intrathoracic stomach. Abdominal ultrasound reporting moderate ascites, only partial visualization of pancreas, possible cirrhosis, right renal atrophy. Abdominal pelvis CT reported slight interval growth of abdominal aortic aneurysm, and endoleak not excluded, atrophic kidneys, ascites, postprocedural changes. 01/22/2021 maintained on IV fluid hydration, nausea 1 this morning-received Zofran, feeling better .received multiple potassium supplements, currently up to 3.7 . BUN 61, creatinine 10.13. Currently maintained on CAPD exchanges. Amylase and lipase trending down, 422 in 1045 evaluated by surgery, reviewed CT, reporting free fluid and pneumoperitoneum consistent with indwelling PD cath. Patient initially scheduled for EGD and colonoscopy yesterday and had been taking a bowel prep, surgery discussing proceeding with EGD/colonoscopy inpatient. Afebrile. Hypertensive. 01/23/2021 labs pending. NPO, scheduled for EGD and colonoscopy today. Denies nausea, vomiting. Denies abdominal pain. Denies chest pain, palpitations or shortness of breath. Norvasc added yesterday. Systolic pressures ranging in the 120s to 150s. Maintaining O2 sats in the 90s on 2 L nasal cannula, O2 sat on room air 89%. 01/24/2021 and sitting up in chair, complaining of mild dizziness and mild right upper quadrant abdominal pain. Lipase increased to 1234. Tolerating regular diet, denies nausea/emesis. Patient underwent EGD and colonoscopy yesterday, tolerated procedure well. EGD revealed duodenitis, erosive gastritis and a hiatal hernia and a long segment of Sykes's esophagus. Colonoscopy revealed colon polyp and rectal polyp with polypectomy. Potassium 2.9, receiving potassium supplements. Creatinine 7.29. Sodium 129, IV fluids discontinued. Denies chest pain, palpitations or shortness of breath. (01/26/2021 Mr. Fowler is a patient well-known to me who underwent EGD and colonoscopy during this hospital stay with a subsequent diagnosis of esophagitis with evidence of Sykes's esophagitis Recent diagnosis of pancreatitis is somewhat perplexing, patient had gallbladder removed, is a non-drinker, no CT evidence of pancreatitis, there is some data in the literature suggesting that proton pump inhibitors most specifically omeprazole can result in acute pancreatitis prior to this admission he had been on omeprazole for some time more than 2 years intermittently. The difficulty being the PPIs are the drug of choice for Sykes's, discussed this issue with Dr. Mcadams about an we've decided to trial Pepcid for approximately 10 days to see if the pancreatitis calms down and then resume PPIs if tolerable Stopped pantoprazole today, started famotidine 20 mg twice daily and follow closely.) 01/27/2021 lipase continues increasing, up to 3047. Patient is asymptomatic, no nausea vomiting or diarrhea, no abdominal pain. Patient's diet had been mary lou ngraded, placed on bowel rest, tolerated ice chips throughout the night. Reports positive bowel movement yesterday. Maintained on gentle IV fluid hydration with sodium 131, creatinine 6.2, magnesium 1.7. Continue on peritoneal dialysis .Denies chest pain, palpitations or shortness of breath. Pathology noted, reporting chronic and acute peptic peptic duodenitis, reactive /chemical gastropathy, H. pylori not identified, Sykes's mucosa negative for dysplasia, ascending colon and rectum biopsy reporting tubular adenoma. Afebrile. 01/28/2021 Lipase down to 614, creatinine continue to improving down to 6. Maintained on peritoneal dialysis. Denies abdominal pain. Receiving magnesium supplementation for magnesium of 1.6. Albumin 2.1, receiving IV albumin. Diet intake improving, consuming 75% of breakfast plus ensure supplements. Continues on IV normal saline with sodium improving up to 132. Objective - Vital Signs Vital signs: Vital Signs Temp 97.7 F 01/28/21 10:00 Pulse 85 01/28/21 10:00 Resp 18 01/28/21 10:00 BP 135/72 01/28/21 10:00 Pulse Ox 97 01/28/21 10:00 Intake & Output 01/27/21 01/28/21 01/28/21 18:59 06:59 18:59 Intake Total 360 300 Output Total 0 Balance 360 300 Weight 66.5 kg 70 kg Intake: IV 360 Sodium Chloride 0.9% 1, 360 000 ml @ 60 mls/hr IV . [id number] ALEX Rx#:[id number] Intake, IV Titration 300 Amount Sodium Chloride 0.9% 1, 300 000 ml @ 50 mls/hr IV . Q20H ALEX Rx#:[id number] Output: Urine 0 - Exam - Exam GENERAL: Sitting up in chair, no acute distress HEAD: Atraumatic, normocephalic. EYES: Pupils equal round and reactive to light, sclera anicteric, conjunctiva normal. ENT: oropharynx clear without exudates. NECK: supple, no JVD. LUNGS: Nonlabored, Diminished throughout.No wheezes or rhonchi. No crackles HEART: Regular rate and rhythm without murmurs, rubs or gallops.S1S2 Normal ABDOMEN: Soft, nondistended, nontender, normoactive bowel sounds. No guarding, no rebound. EXTREMITIES: Normal range of motion, no edema, No clubbing or cyanosis. NEUROLOGICAL: Cranial nerves II through XII grossly intact. No focal deficits. SKIN: Warm, Dry, no rashes noted. - Labs CBC & Chem 7: 01/24/21 07:20 01/28/21 06:38 Labs: Abnormal Lab Results - Last 24 Hours (Table) 01/27/21 01/28/21 Range/Units 06:19 06:38 Sodium 131 L 132 L (135-145) mmol/L Chloride 95 L 95 L (96-109) mmol/L BUN 44.0 H 40.0 H (9.0-27.0) mg/dL Creatinine 6.2 H 6.0 H (0.6-1.5) mg/dL Est GFR (CKD-EPI)AfAm 9.3 L 9.7 L (60.0-200.0) Est GFR (CKD-EPI)NonAf 8.0 L 8.3 L (60.0-200.0) BUN/Creatinine Ratio 7.10 L 6.67 L (12.00-20.00) Ratio Glucose 123 H (70-110) mg/dL Calcium 7.4 L 7.6 L (8.7-10.3) mg/dL Lipase 614 H (14-60) U/L Assessment and Plan Assessment: -Abdominal pain, status post fall, acute pancreatitis-etiology unclear, possibly related to omeprazole, PPI converted to Pepcid trial. -Dehydration secondary to the above -Lactic acidosis -COVID-19 -Severe hypokalemia -Acute on chronic, end-stage renal disease, on PD -Syncope, etiology unclear, suspect multifactorial ,related to all the above, workup in progress. -Pneumoperitoneum, related to peritoneal dialysis catheter as per surgery review of CT. -Right shoulder and neck pain of 3 weeks status post prior fall, comminuted fracture of the medial aspect of right clavicle per CT -Weight loss of 30 pounds over the last few months, unintentional. Status post EGD and colonoscopy reporting duodenitis, erosive gastritis and a hiatal hernia and a long segment of Sykes's esophagus, colon polyp and rectal polyp with polypectomy. Pathology reporting chronic and acute peptic duodenitis, tubular adenoma in ascending colon and rectum biopsy-will require close surveillance OP. -Hyponatremia - History of Bilateral renal artery stents 2018 , revascularization unsuccessful on last admission -Acute hypoxic respiratory failure, secondary to the above -Chronic CHF exacerbation, systolic dysfunction EF 45-50%. -Hypertension -Anemia of chronic disease, iron deficient -AAA, status post stent placement, slight interval growth, possible endoleak not excluded as per CT, 7.9 cm(previous exam measured 7.7 cm) -Former nicotine dependence -Moderate mitral regurgitation -Mild pulmonary hypertension -History of Nonspecific 12 x 0.6 cm lung opacity, follow-up OP rec. -Moderate protein calorie malnutrition, status post IV albumin infusions Plan: Continue on current medication regime ,monitoring and symptomatic treatment. Diet advancement as per GI. Minimal diet intake over the last 10 days, refraining from PPN secondary to CKD, continue to encourage oral intake- reevaluate tomorrow, discussed with dietitian. Maintain Gentle IV fluid hydration. Albumin and magnesium supplemented. Peritoneal dialysis and electrolyte replacement as per nephrology. Per social work, placement to subacute rehab. difficult related to patient on peritoneal dialysis plus COVID infection, may have to try out further such as [facility] in [place]. Initially had attempted to place patient at [facility] where his is, but [facility] declined secondary to the previous mentioned reasons. The impression and plan of care has been dictated as directed. .: I performed a history and examination of this patient, discussed the same with the dictator. I agree with the dictator's note ,documented as a scribe. Any additional findings or plans will be noted. The impression and plan of care has been dictated as directed. .: I performed a history and examination of this patient, discussed the same with the dictator. I agree with the dictator's note ,documented as a scribe. Any additional findings or plans will be noted.
[2021-01-28 15:07] VITALS: BMI 24.9
[2021-01-28] MEDS ORDERED: MAGNESIUM CITRATE 296 ML BOTTLE PO ONE (15:15)
[2021-01-28] MEDS: HYDROcodone/APAP 5-325MG 1 EACH TAB PO PRN (22:54)
[2021-01-29] MEDS: DIALYSIS (PERIT 1.5%) 2,500 ML 37.5 G/2,500 ML BAG INTRAPERIT SCH ×4 (04:06→22:36)
[2021-01-29] MEDS: METOPROLOL SUCCINATE (ER) 50 MG TAB.ER.24H PO SCH (08:13)
[2021-01-29] MEDS: CHOLECALCIFEROL 25 MCG (1000 IU) TABLET PO SCH (08:17)
[2021-01-29] MEDS: ASCORBIC ACID 500 MG TAB PO SCH (08:17)
[2021-01-29] MEDS: ZINC SULFATE 220 MG CAP PO SCH (08:17)
[2021-01-29] MEDS: SUCRALFATE 1 GM TAB PO SCH ×2 (08:17→17:33)
[2021-01-29] MEDS: FAMOTIDINE 20 MG TAB PO SCH (08:17)
[2021-01-29] MEDS: PANTOPRAZOLE 40 MG TABLET PO SCH ×2 (08:17→17:33)
[2021-01-29] MEDS: amLODIPine 5 MG TAB PO SCH ×2 (08:17→20:48)
[2021-01-29] MEDS: ATORVASTATIN 80 MG TAB PO SCH (08:17)
[2021-01-29 09:14] LABS: HCT 30.1 % (39.0-53.0); HGB 9.9 gm/dL (13.0-17.5); MCH 32.3 pg (25.0-35.0); MCHC 32.7 g/dL (31.0-37.0); MCV 98.7 fL (80.0-100.0); RBC 3.05 m/uL (4.30-5.90); RDW 14.6 % (11.5-15.5); WBC 9.6 k/uL (3.8-10.6)
[2021-01-29 09:22] LABS: African American GFR (CKD) 11 (>60 ml/min/1.73 sqM); Anion Gap 7 mmol/L; Blood Urea Nitrogen 36 mg/dL (9-20); Calcium 7.8 mg/dL (8.4-10.2); Carbon Dioxide 29 mmol/L (22-30); Chloride 92 mmol/L (98-107); Glucose 102 mg/dL (74-99); Non-African American GFR(CKD) 9 (>60 ml/min/1.73 sqM); Potassium 3.6 mmol/L (3.5-5.1); Sodium 128 mmol/L (137-145)
[2021-01-29 09:23] LABS: Platelet Count 272 k/uL (150-450)
[2021-01-29 09:54] LABS: Lipase 2050 U/L (23-300)
[2021-01-29] MEDS ORDERED: POTASSIUM CHLORIDE ER 20 MEQ TAB.ER PO STA (12:12)
--- NOTE | 2021-01-29 12:13 | P.PN ---
Subjective Patient is seen in follow-up for end-stage renal disease. He is maintained on peritoneal dialysis. No problems with exchanges. Denies abdominal pain. Oral intake slowly improving. No chest pain or shortness of breath. Maintained on normal saline. No active complaints. Underwent barium swallow this morning. Vital signs are stable. General: The patient appeared well nourished and normally developed. HEENT: Head exam is unremarkable. Neck is without jugular venous distension. LUNGS: Breath sounds decreased. HEART: Rate and Rhythm are regular. ABDOMEN: Soft, no distention noted. EXTREMITITES: Trace edema. Objective - Vital Signs Vital signs: Vital Signs Temp 97.7 F 01/29/21 09:00 Pulse 73 01/29/21 09:00 Resp 18 01/29/21 09:00 BP 142/70 01/29/21 09:00 Pulse Ox 93 L 01/29/21 09:00 Intake & Output 01/28/21 01/29/21 01/29/21 18:59 06:59 18:59 Intake Total 950 400 400 Output Total 0 Balance 950 400 400 Weight 70 kg 71 kg Intake: Intake, IV Titration 750 400 400 Amount Albumin Human 25% 50 ml 50 In Empty Bag 1 bag @ 50 mls/hr IVPB Q1H ALEX Rx#: [id number] Magnesium Sulfate-D5w Pmx 200 1 gm In Dextrose/Water 1 100ml.bag @ 100 mls/hr IVPB Q1H ALEX Rx#: [id number] Sodium Chloride 0.9% 1, 500 400 400 000 ml @ 50 mls/hr IV . Q20H ALEX Rx#:[id number] Oral 200 Output: Urine 0 Stool 0 Other: Voiding Method CAPD CAPD # Voids 0 - Labs CBC & Chem 7: 01/29/21 08:44 01/29/21 08:44 Labs: Abnormal Lab Results - Last 24 Hours (Table) 01/27/21 01/29/21 01/29/21 Range/Units 06:19 08:44 08:44 RBC 3.05 L (4.30-5.90) m/uL Hgb 9.9 L (13.0-17.5) gm/dL Hct 30.1 L (39.0-53.0) % Sodium 128 L (137-145) mmol/L Chloride 92 L (98-107) mmol/L BUN 36 H (9-20) mg/dL Creatinine 5.54 H (0.66-1.25) mg/dL Glucose 102 H (74-99) mg/dL Calcium 7.8 L (8.4-10.2) mg/dL Lipase 2050 H (23-300) U/L IgG1 360.0 L (405.0-1011.0) mg/dL Assessment and Plan Plan: Assessment: 1. End-stage renal disease maintained on peritoneal dialysis. 2. Hyponatremia secondary to chronic kidney disease. Tolerating only liquid diet. 3. Hypokalemia from poor intake and PD losses. 4. Acute pancreatitis. Surgery following. EGD and colonoscopy done this admission revealed duodenitis, erosive gastritis, hiatal hernia, long segment Sykes's esophagus as well as descending colon and rectal polyp. 5. Hypertension with chronic kidney disease. Stable. 6. Chronic systolic CHF with ejection fraction of 40-45% with moderate mitral regurgitation. 7. History of AAA repair with aortobiiliac stenting. 8. Covid-19 infection. Plan: Maintain 2.5 L exchanges every 6 hours with 1.5% dextrose solution. Hep-Lock IV fluids. Lactulose as needed for constipation. Status post IV albumin yesterday. Replace potassium. 40 mEq today.
--- NOTE | 2021-01-29 14:12 | P.PN ---
Subjective Progress Note Date: 01/29/21 This is a 75-year-old gentleman with past medical history of hypertension, end- stage renal disease on peritoneal dialysis, abdominal aortic aneurysm-status post stent placement, bilateral renal artery stents, moderate mitral regurgitation,former nicotine dependence prided into the ER via EMS status post fall. He reports standing up at the sink in water and the next thing he knew, he was waking up on the floor. Denies incontinence of urine or bowel movement, believes he hit his head. Reports mid epigastric abdominal pain accompanied by nausea and vomiting 3 days. Currently no abdominal pain, nausea and vomiting have responded to Zofran. Reports neck and right shoulder pain that has been present for about 3 weeks secondary to prior fall. Denies fevers, dyspnea. Denies lightheadedness, dizziness or focal deficits. Denies back pain. Denies chest pain, palpitations or shortness of breath. Worsening renal function. Reports compliant with his peritoneal dialysis. Last peritoneal dialysis was last night.Patient initially was scheduled today with Dr. Godwin for endoscopy procedure related to unexplained 15-20 pound weight loss over the last few months.Vital signs stable, maintaining O2 sats in the 90s on room air.Afebrile, WBC 13.3. Hemoglobin 14.8, platelets 154, INR 1. Sodium 137, potassium 2.9 BUN 49, creatinine 10.48. Magnesium 3.3 Plasma lactic acid on admission 4.6, with IV fluid hydration down to 2.8 T bili, LFTs within normal limits. Amylase 639, lipase 2074 Positive for coronavirus. Right shoulder x-ray reporting no acute fracture or dislocation, osteoarthritis( history of trauma 3 weeks prior). Head/C-spine CT reported No acute fracture or dislocation of the C-spine, no acute intracranial hemorrhage, mass effect or midline shift, comminuted Medial right clavicular fracture of questionable age. Chest x-ray reporting pneumoperitoneum, para esophageal hernia with partial intrathoracic stomach. Abdominal ultrasound reporting moderate ascites, only partial visualization of pancreas, possible cirrhosis, right renal atrophy. Abdominal pelvis CT reported slight interval growth of abdominal aortic aneurysm, and endoleak not excluded, atrophic kidneys, ascites, postprocedural changes. 01/22/2021 maintained on IV fluid hydration, nausea 1 this morning-received Zofran, feeling better .received multiple potassium supplements, currently up to 3.7 . BUN 61, creatinine 10.13. Currently maintained on CAPD exchanges. Amylase and lipase trending down, 422 in 1045 evaluated by surgery, reviewed CT, reporting free fluid and pneumoperitoneum consistent with indwelling PD cath. Patient initially scheduled for EGD and colonoscopy yesterday and had been taking a bowel prep, surgery discussing proceeding with EGD/colonoscopy inpatient. Afebrile. Hypertensive. 01/23/2021 labs pending. NPO, scheduled for EGD and colonoscopy today. Denies nausea, vomiting. Denies abdominal pain. Denies chest pain, palpitations or shortness of breath. Norvasc added yesterday. Systolic pressures ranging in the 120s to 150s. Maintaining O2 sats in the 90s on 2 L nasal cannula, O2 sat on room air 89%. 01/24/2021 and sitting up in chair, complaining of mild dizziness and mild right upper quadrant abdominal pain. Lipase increased to 1234. Tolerating regular diet, denies nausea/emesis. Patient underwent EGD and colonoscopy yesterday, tolerated procedure well. EGD revealed duodenitis, erosive gastritis and a hiatal hernia and a long segment of Sykes's esophagus. Colonoscopy revealed colon polyp and rectal polyp with polypectomy. Potassium 2.9, receiving potassium supplements. Creatinine 7.29. Sodium 129, IV fluids discontinued. Denies chest pain, palpitations or shortness of breath. (01/26/2021 Mr. Fowler is a patient well-known to me who underwent EGD and colonoscopy during this hospital stay with a subsequent diagnosis of esophagitis with evidence of Sykes's esophagitis Recent diagnosis of pancreatitis is somewhat perplexing, patient had gallbladder removed, is a non-drinker, no CT evidence of pancreatitis, there is some data in the literature suggesting that proton pump inhibitors most specifically omeprazole can result in acute pancreatitis prior to this admission he had been on omeprazole for some time more than 2 years intermittently. The difficulty being the PPIs are the drug of choice for Sykes's, discussed this issue with Dr. Mcadams about an we've decided to trial Pepcid for approximately 10 days to see if the pancreatitis calms down and then resume PPIs if tolerable Stopped pantoprazole today, started famotidine 20 mg twice daily and follow closely.) 01/27/2021 lipase continues increasing, up to 3047. Patient is asymptomatic, no nausea vomiting or diarrhea, no abdominal pain. Patient's diet had been mary lou ngraded, placed on bowel rest, tolerated ice chips throughout the night. Reports positive bowel movement yesterday. Maintained on gentle IV fluid hydration with sodium 131, creatinine 6.2, magnesium 1.7. Continue on peritoneal dialysis .Denies chest pain, palpitations or shortness of breath. Pathology noted, reporting chronic and acute peptic peptic duodenitis, reactive /chemical gastropathy, H. pylori not identified, Sykes's mucosa negative for dysplasia, ascending colon and rectum biopsy reporting tubular adenoma. Afebrile. 01/28/2021 Lipase down to 614, creatinine continue to improving down to 6. Maintained on peritoneal dialysis. Denies abdominal pain. Receiving magnesium supplementation for magnesium of 1.6. Albumin 2.1, receiving IV albumin. Diet intake improving, consuming 75% of breakfast plus ensure supplements. Continues on IV normal saline with sodium improving up to 132. 01/29/21 and patient is scheduled for barium enema pancreas CT reported suspicious lesion mid transverse colon worrisome for neoplasm and patient is scheduled for barium enema today. Labs pending. Denies chest pain, palpitations or shortness of breath. Objective - Vital Signs Vital signs: Vital Signs Temp 97.8 F 01/29/21 04:00 Pulse 76 01/29/21 04:00 Resp 16 01/29/21 04:00 BP 129/56 01/29/21 04:00 Pulse Ox 93 L 01/29/21 04:00 Intake & Output 01/28/21 01/29/21 01/29/21 18:59 06:59 18:59 Intake Total 950 400 Balance 950 400 Weight 70 kg 71 kg Intake: Intake, IV Titration 750 400 Amount Albumin Human 25% 50 ml 50 In Empty Bag 1 bag @ 50 mls/hr IVPB Q1H ALEX Rx#: [id number] Magnesium Sulfate-D5w Pmx 200 1 gm In Dextrose/Water 1 100ml.bag @ 100 mls/hr IVPB Q1H ALEX Rx#: [id number] Sodium Chloride 0.9% 1, 500 400 000 ml @ 50 mls/hr IV . Q20H ALEX Rx#:[id number] Oral 200 Other: Voiding Method CAPD - Exam - Exam GENERAL: Sitting up in bed, no acute distress HEAD: Atraumatic, normocephalic. EYES: Pupils equal round ,conjunctiva normal. ENT: oropharynx clear without exudates. NECK: supple, no JVD. LUNGS: Nonlabored, Diminished throughout.No rhonchi, crackles or wheezes. HEART: Regular rate and rhythm without murmurs, rubs or gallops.S1S2 Normal ABDOMEN: Soft, nondistended, nontender, normoactive bowel sounds. No guarding, no rebound. EXTREMITIES: Normal range of motion, no edema, No clubbing or cyanosis. NEUROLOGICAL: Cranial nerves II through XII grossly intact. No focal deficits. SKIN: Warm, Dry, no rashes noted. - Labs CBC & Chem 7: 01/29/21 08:44 01/29/21 08:44 Labs: Abnormal Lab Results - Last 24 Hours (Table) 01/27/21 01/28/21 Range/Units 06:19 06:38 Sodium 132 L (135-145) mmol/L Chloride 95 L (96-109) mmol/L BUN 40.0 H (9.0-27.0) mg/dL Creatinine 6.0 H (0.6-1.5) mg/dL Est GFR (CKD-EPI)AfAm 9.7 L (60.0-200.0) Est GFR (CKD-EPI)NonAf 8.3 L (60.0-200.0) BUN/Creatinine Ratio 6.67 L (12.00-20.00) Ratio Glucose 123 H (70-110) mg/dL Calcium 7.6 L (8.7-10.3) mg/dL Lipase 614 H (14-60) U/L IgG1 360.0 L (405.0-1011.0) mg/dL Assessment and Plan Assessment: -Abdominal pain, status post fall, acute pancreatitis-etiology unclear, possibly related to omeprazole, PPI converted to Pepcid trial. -Dehydration secondary to the above -suspicious lesion mid transverse colon worrisome for neoplasm, her pancreas CT, BE results pending. -Lactic acidosis -COVID-19 -Severe hypokalemia -Acute on chronic, end-stage renal disease, on PD -Syncope, etiology unclear, suspect multifactorial ,related to all the above, workup in progress. -Pneumoperitoneum, related to peritoneal dialysis catheter as per surgery review of CT. -Right shoulder and neck pain of 3 weeks status post prior fall, comminuted fracture of the medial aspect of right clavicle per CT -Weight loss of 30 pounds over the last few months, unintentional. Status post EGD and colonoscopy reporting duodenitis, erosive gastritis and a hiatal hernia and a long segment of Sykes's esophagus, colon polyp and rectal polyp with polypectomy. Pathology reporting chronic and acute peptic duodenitis, tubular adenoma in ascending colon and rectum biopsy-will require close surveillance OP. -Hyponatremia - History of Bilateral renal artery stents 2017 , revascularization unsuccessful on last admission -Acute hypoxic respiratory failure, secondary to the above -Chronic CHF exacerbation, systolic dysfunction EF 45-50%. -Hypertension -Anemia of chronic disease, iron deficient -AAA, status post stent placement, slight interval growth, possible endoleak not excluded as per CT, 7.9 cm(previous exam measured 7.7 cm) -Former nicotine dependence -Moderate mitral regurgitation -Mild pulmonary hypertension -History of Nonspecific 12 x 0.6 cm lung opacity, follow-up OP rec. -Moderate protein calorie malnutrition, status post IV albumin infusions Plan: Continue on current medication regime ,monitoring and symptomatic treatm ent. Labs pending. Further diet advancement as per GI. Peritoneal dialysis and electrolyte replacement as per nephrology. Per social work, placement to subacute rehab. difficult related to patient on peritoneal dialysis plus COVID infection, may have to look further out such as [facility] in [place]; discussed with patient and he now wishes to proceed home. Updated pediatric social worker. Discharge planning in progress for home with home care/PT as early as tomorrow, pending BE results, if tolerating diet advancement, final DC recommendations and clearance from consults. The impression and plan of care has been dictated as directed. DrMarcus: I performed a history and examination of this patient, discussed the same with the dictator. I agree with the dictator's note ,documented as a scribe. Any additional findings or plans will be noted. The impression and plan of care has been dictated as directed. .: I performed a history and examination of this patient, discussed the same with the dictator. I agree with the dictator's note ,documented as a scribe. Any additional findings or plans will be noted.
--- NOTE | 2021-01-29 14:45 | P.PN ---
<Reina White - Last Filed: 01/29/21 14:53> Subjective Progress Note Date: 01/29/21 CHIEF COMPLAINT: Abdominal pain HISTORY OF PRESENT ILLNESS: Patient sitting up in bed. He denies any abdominal pain at this time. CAT scan pancreas shows no pancreatic abnormalities however radiology suspecting possible lesion in the mid transverse colon. The patient's recent colonoscopy was noted to have a suboptimal prep however no mass lesion or large polyps were seen. He had a barium enema completed for further evaluation o f the suspected possible lesion in the mid transverse colon. Afebrile. WBC 9.6 hemoglobin 9.9 sodium 128 creatinine 5.54 lipase trending back up 2049 PHYSICAL EXAM: VITAL SIGNS: Reviewed. GENERAL: Well-developed in no acute distress. HEENT: No sclera icterus. Extraocular movements grossly intact. Moist buccal mucosa. Head is atraumatic, normocephalic. ABDOMEN: Soft. Nondistended. Nontender NEUROLOGIC: Alert and oriented. Cranial nerves II through XII grossly intact. ASSESSMENT: 1. Pancreatitis 2. Suspected possible lesion in the mid transverse colon noted on CAT scan 2. Epigastric abdominal pain. Status post EGD and colonoscopy with results showing duodenitis, erosive gastritis, hiatal hernia, long segment Sykes's esophagus, distending colon polyp and rectal polyp. PLAN: -We'll follow-up on barium enema results -Start patient on full liquid diet -Continue Protonix -Continue to monitor lipase -Further recommendations forthcoming per surgeon Physician Kelp Gatherer note has been reviewed by physician. Signing provider agrees with the documented findings, assessment, and plan of care. Objective - Vital Signs Vital signs: Vital Signs Temp 97.8 F 01/29/21 14:07 Pulse 79 01/29/21 14:07 Resp 18 01/29/21 14:07 BP 142/75 01/29/21 14:07 Pulse Ox 90 L 01/29/21 14:07 Intake & Output 01/28/21 01/29/21 01/29/21 18:59 06:59 18:59 Intake Total 950 400 400 Output Total 0 Balance 950 400 400 Weight 70 kg 71 kg Intake: Intake, IV Titration 750 400 400 Amount Albumin Human 25% 50 ml 50 In Empty Bag 1 bag @ 50 mls/hr IVPB Q1H [facility] Rx#: [id number] Magnesium Sulfate-D5w Pmx 200 1 gm In Dextrose/Water 1 100ml.bag @ 100 mls/hr IVPB Q1H [facility] Rx#: [id number] Sodium Chloride 0.9% 1, 500 400 400 000 ml @ 50 mls/hr IV . Q20H [facility] Rx#:[id number] Oral 200 Output: Urine 0 Stool 0 Other: Voiding Method CAPD CAPD # Voids 0 - Labs CBC & Chem 7: 01/29/21 08:44 01/29/21 08:44 Labs: Abnormal Lab Results - Last 24 Hours (Table) 01/29/21 01/29/21 Range/Units 08:44 08:44 RBC 3.05 L (4.30-5.90) m/uL Hgb 9.9 L (13.0-17.5) gm/dL Hct 30.1 L (39.0-53.0) % Sodium 128 L (137-145) mmol/L Chloride 92 L (98-107) mmol/L BUN 36 H (9-20) mg/dL Creatinine 5.54 H (0.66-1.25) mg/dL Glucose 102 H (74-99) mg/dL Calcium 7.8 L (8.4-10.2) mg/dL Lipase 2050 H (23-300) U/L <Abbe Godwin - Last Filed: 01/29/21 20:51> Subjective As above. Case discussed further with radiology this evening. He is suspicious for possible thickened colonic fold mid to distal transverse colon. Neoplasia not excluded. Patient quite anxious to go home at this point. Will increase diet given lack of symptoms. We'll consider short-term follow-up outpatient colonoscopy in 4-6 weeks. Objective - Vital Signs Vital signs: Vital Signs Temp 97.8 F 01/29/21 14:07 Pulse 79 01/29/21 14:07 Resp 18 01/29/21 14:07 BP 142/75 01/29/21 14:07 Pulse Ox 90 L 01/29/21 14:07 Intake & Output 01/29/21 01/29/21 01/30/21 06:59 18:59 06:59 Intake Total 400 1050 Output Total 0 Balance 400 1050 Weight 71 kg Intake: Intake, IV Titration 400 700 Amount Sodium Chloride 0.9% 1, 400 700 000 ml @ 50 mls/hr IV . Q20H [facility] Rx#:[id number] Oral 350 Output: Urine 0 Stool 0 Other: Voiding Method CAPD CAPD # Voids 0 - Labs CBC & Chem 7: 01/29/21 08:44 01/29/21 08:44 Labs: Abnormal Lab Results - Last 24 Hours (Table) 01/29/21 01/29/21 Range/Units 08:44 08:44 RBC 3.05 L (4.30-5.90) m/uL Hgb 9.9 L (13.0-17.5) gm/dL Hct 30.1 L (39.0-53.0) % Sodium 128 L (137-145) mmol/L Chloride 92 L (98-107) mmol/L BUN 36 H (9-20) mg/dL Creatinine 5.54 H (0.66-1.25) mg/dL Glucose 102 H (74-99) mg/dL Calcium 7.8 L (8.4-10.2) mg/dL Lipase 2050 H (23-300) U/L Assessment and Plan (1) Pancreatitis Current Visit: Yes Status: Acute Code(s): K85.90 - ACUTE PANCREATITIS WITHOUT NECROSIS OR INFECTION, UNSP SNOMED Code(s): 01149394
--- NOTE | 2021-01-29 22:48 | FL ---
EXAMINATION TYPE: FL barium enema DATE OF EXAM: 01/29/2021 COMPARISON: None HISTORY: Abnormal CT abdomen TECHNIQUE: Single contrast with water soluble technique was utilized for inpatient possibly incomplet e bowel prep. Fluoroscopic imaging real-time observation and overhead radiographs were obtained. FINDINGS: Fluoroscopy time 1 minute 56 seconds. Images: 32 Mortar Worker film: Pulmonary abdominal films obtained fail to be noncontributory Lower GI: Retrograde filling with water-soluble contrast was observed. There is no hesitancy through the rectosigmoid region through the descending colon and splenic flexure. There is some irregularity within the proximal to midportion of the transverse colon. However, on slightly delayed images have m ore normal-appearing distention through this region. There is a persistent area of narrowing over a very short segment within the distal transverse colon. This area could correspond to the finding on the CT examination. Neoplasm cannot be excluded at this level. In the proximal ascending colon there was a long hesitancy of filling with a small central wisp of co ntrast. However, on delayed images obtained this area opens and contrast spills freely into the ascen ding colon. Contrast extends to the expected region of the cecum. However, the appendix is not identi fied and no free spill into the terminal ileum is evident to confirm visualization of the cecum. Postevacuation films after gravity drainage have moderate retention. Report: Case discussed with the referring physician at the time of preliminary interpretation. IMPRESSION: 1. Persistent focal area of narrowing mid to distal transverse colon could correspond to CT findings and could indicate underlying neoplasm. 2. There may be some mild irregularity of the mucosa of the proximal transverse colon. However, this is more likely artifactual and appears resolved during the exam.
[2021-01-29] MEDS: HYDROcodone/APAP 5-325MG 1 EACH TAB PO PRN (23:37)
[2021-01-30] MEDS: DIALYSIS (PERIT 1.5%) 2,500 ML 37.5 G/2,500 ML BAG INTRAPERIT SCH ×2 (04:25→10:16)
[2021-01-30] MEDS: FAMOTIDINE 20 MG TAB PO SCH (09:07)
[2021-01-30] MEDS: amLODIPine 5 MG TAB PO SCH ×2 (09:07→21:05)
[2021-01-30] MEDS: ASCORBIC ACID 500 MG TAB PO SCH (09:07)
[2021-01-30] MEDS: METOPROLOL SUCCINATE (ER) 50 MG TAB.ER.24H PO SCH (09:07)
[2021-01-30] MEDS: PANTOPRAZOLE 40 MG TABLET PO SCH ×2 (09:07→16:28)
[2021-01-30] MEDS: SUCRALFATE 1 GM TAB PO SCH ×2 (09:07→16:29)
[2021-01-30] MEDS: ATORVASTATIN 80 MG TAB PO SCH (09:07)
[2021-01-30] MEDS: ZINC SULFATE 220 MG CAP PO SCH (09:07)
[2021-01-30] MEDS: CHOLECALCIFEROL 25 MCG (1000 IU) TABLET PO SCH (09:08)
[2021-01-30] MEDS: HYDROcodone/APAP 5-325MG 1 EACH TAB PO PRN (09:16)
--- NOTE | 2021-01-30 12:04 | P.PN ---
Subjective Patient is seen in follow-up for end-stage renal disease. He is maintained on peritoneal dialysis. No problems with exchanges. Denies abdominal pain. Oral intake slowly improving. Still on clear liquids. No chest pain or shortness of breath. More edematous today. Vital signs are stable. General: The patient appeared well nourished and normally developed. HEENT: Head exam is unremarkable. Neck is without jugular venous distension. LUNGS: Breath sounds decreased. HEART: Rate and Rhythm are regular. ABDOMEN: Soft, no distention noted. EXTREMITITES: 1+ edema. Objective - Vital Signs Vital signs: Vital Signs Temp 97.4 F L 01/30/21 09:12 Pulse 77 01/30/21 09:12 Resp 18 01/30/21 09:12 BP 141/65 01/30/21 09:12 Pulse Ox 95 01/30/21 09:12 Intake & Output 01/29/21 01/30/21 01/30/21 18:59 06:59 18:59 Intake Total 1050 350 Output Total 0 Balance 1050 350 Weight 70.1 kg Intake: Intake, IV Titration 700 Amount Sodium Chloride 0.9% 1, 700 000 ml @ 50 mls/hr IV . Q20H [facility] Rx#:[id number] Oral 350 350 Output: Urine 0 Stool 0 Other: Voiding Method CAPD CAPD # Voids 0 1 # Bowel Movements 2 - Labs CBC & Chem 7: 01/29/21 08:44 01/29/21 08:44 Assessment and Plan Plan: Assessment: 1. End-stage renal disease maintained on peritoneal dialysis. 2. Hyponatremia secondary to chronic kidney disease. Tolerating only liquid diet. 3. Hypokalemia from poor intake and PD losses. Replace. 4. Acute pancreatitis. Surgery following. EGD and colonoscopy done this admission revealed duodenitis, erosive gastritis, hiatal hernia, long segment Sykes's esophagus as well as descending colon and rectal polyp. Barium swallow done yesterday concerning for possible neoplasm in the transverse colon. 5. Hypertension with chronic kidney disease. Stable. 6. Chronic systolic CHF with ejection fraction of 40-45% with moderate mitral regurgitation. 7. History of AAA repair with aortobiiliac stenting. 8. Covid-19 infection. Plan: Maintain 2.5 L exchanges every 6 hours - alternate with 1.5 and 2.5 % dextrose solution. Hep-Lock IV fluids. Lactulose as needed for constipation. Status post IV albumin January 28. Repeat electrolytes in the morning.
--- NOTE | 2021-01-30 12:21 | P.PN ---
Subjective Progress Note Date: 01/30/21 This is a 75-year-old gentleman with past medical history of hypertension, end- stage renal disease on peritoneal dialysis, abdominal aortic aneurysm-status post stent placement, bilateral renal artery stents, moderate mitral regurgitation,former nicotine dependence prided into the ER via EMS status post fall. He reports standing up at the sink in water and the next thing he knew, he was waking up on the floor. Denies incontinence of urine or bowel movement, believes he hit his head. Reports mid epigastric abdominal pain accompanied by nausea and vomiting 3 days. Currently no abdominal pain, nausea and vomiting have responded to Zofran. Reports neck and right shoulder pain that has been present for about 3 weeks secondary to prior fall. Denies fevers, dyspnea. Denies lightheadedness, dizziness or focal deficits. Denies back pain. Denies chest pain, palpitations or shortness of breath. Worsening renal function. Reports compliant with his peritoneal dialysis. Last peritoneal dialysis was last night.Patient initially was scheduled today with Dr. Godwin for endoscopy procedure related to unexplained 15-20 pound weight loss over the last few months.Vital signs stable, maintaining O2 sats in the 90s on room air.Afebrile, WBC 13.3. Hemoglobin 14.8, platelets 154, INR 1. Sodium 137, potassium 2.9 BUN 49, creatinine 10.48. Magnesium 3.3 Plasma lactic acid on admission 4.6, with IV fluid hydration down to 2.8 T bili, LFTs within normal limits. Amylase 639, lipase 2074 Positive for coronavirus. Right shoulder x-ray reporting no acute fracture or dislocation, osteoarthritis( history of trauma 3 weeks prior). Head/C-spine CT reported No acute fracture or dislocation of the C-spine, no acute intracranial hemorrhage, mass effect or midline shift, comminuted Medial right clavicular fracture of questionable age. Chest x-ray reporting pneumoperitoneum, para esophageal hernia with partial intrathoracic stomach. Abdominal ultrasound reporting moderate ascites, only partial visualization of pancreas, possible cirrhosis, right renal atrophy. Abdominal pelvis CT reported slight interval growth of abdominal aortic aneurysm, and endoleak not excluded, atrophic kidneys, ascites, postprocedural changes. 01/22/2021 maintained on IV fluid hydration, nausea 1 this morning-received Zofran, feeling better .received multiple potassium supplements, currently up to 3.7 . BUN 61, creatinine 10.13. Currently maintained on CAPD exchanges. Amylase and lipase trending down, 422 in 1045 evaluated by surgery, reviewed CT, reporting free fluid and pneumoperitoneum consistent with indwelling PD cath. Patient initially scheduled for EGD and colonoscopy yesterday and had been taking a bowel prep, surgery discussing proceeding with EGD/colonoscopy inpatient. Afebrile. Hypertensive. 01/23/2021 labs pending. NPO, scheduled for EGD and colonoscopy today. Denies nausea, vomiting. Denies abdominal pain. Denies chest pain, palpitations or shortness of breath. Norvasc added yesterday. Systolic pressures ranging in the 120s to 150s. Maintaining O2 sats in the 90s on 2 L nasal cannula, O2 sat on room air 89%. 01/24/2021 and sitting up in chair, complaining of mild dizziness and mild right upper quadrant abdominal pain. Lipase increased to 1234. Tolerating regular diet, denies nausea/emesis. Patient underwent EGD and colonoscopy yesterday, tolerated procedure well. EGD revealed duodenitis, erosive gastritis and a hiatal hernia and a long segment of Sykes's esophagus. Colonoscopy revealed colon polyp and rectal polyp with polypectomy. Potassium 2.9, receiving potassium supplements. Creatinine 7.29. Sodium 129, IV fluids discontinued. Denies chest pain, palpitations or shortness of breath. (01/26/2021 Mr. Fowler is a patient well-known to me who underwent EGD and colonoscopy during this hospital stay with a subsequent diagnosis of esophagitis with evidence of Sykes's esophagitis Recent diagnosis of pancreatitis is somewhat perplexing, patient had gallbladder removed, is a non-drinker, no CT evidence of pancreatitis, there is some data in the literature suggesting that proton pump inhibitors most specifically omeprazole can result in acute pancreatitis prior to this admission he had been on omeprazole for some time more than 2 years intermittently. The difficulty being the PPIs are the drug of choice for Sykes's, discussed this issue with Dr. Mcadams about an we've decided to trial Pepcid for approximately 10 days to see if the pancreatitis calms down and then resume PPIs if tolerable Stopped pantoprazole today, started famotidine 20 mg twice daily and follow closely.) 01/27/2021 lipase continues increasing, up to 3047. Patient is asymptomatic, no nausea vomiting or diarrhea, no abdominal pain. Patient's diet had been mary lou ngraded, placed on bowel rest, tolerated ice chips throughout the night. Reports positive bowel movement yesterday. Maintained on gentle IV fluid hydration with sodium 131, creatinine 6.2, magnesium 1.7. Continue on peritoneal dialysis .Denies chest pain, palpitations or shortness of breath. Pathology noted, reporting chronic and acute peptic peptic duodenitis, reactive /chemical gastropathy, H. pylori not identified, Sykes's mucosa negative for dysplasia, ascending colon and rectum biopsy reporting tubular adenoma. Afebrile. 01/28/2021 Lipase down to 614, creatinine continue to improving down to 6. Maintained on peritoneal dialysis. Denies abdominal pain. Receiving magnesium supplementation for magnesium of 1.6. Albumin 2.1, receiving IV albumin. Diet intake improving, consuming 75% of breakfast plus ensure supplements. Continues on IV normal saline with sodium improving up to 132. 01/29/21 and patient is scheduled for barium enema pancreas CT reported suspicious lesion mid transverse colon worrisome for neoplasm and patient is scheduled for barium enema today. Labs pending. Denies chest pain, palpitations or shortness of breath. 01/30/2021 BM completed yesterday reporting persistent focal area of narrowing mid to distal transverse colon corresponding to CT findings possible underlying neoplasm, possible mild irregularity of the mucosa of the proximal transverse colon. Reports not feeling well today with recurrent nausea. Denies lightheadedness dizziness or focal deficits. Denies chest pain, palpitations or shortness of breath. Labs pending. Afebrile. Objective - Vital Signs Vital signs: Vital Signs Temp 97.4 F L 01/30/21 09:12 Pulse 77 01/30/21 09:12 Resp 18 01/30/21 09:12 BP 141/65 01/30/21 09:12 Pulse Ox 95 01/30/21 09:12 Intake & Output 01/29/21 01/30/21 01/30/21 18:59 06:59 18:59 Intake Total 1050 350 Output Total 0 Balance 1050 350 Weight 70.1 kg Intake: Intake, IV Titration 700 Amount Sodium Chloride 0.9% 1, 700 000 ml @ 50 mls/hr IV . Q20H [facility] Rx#:[id number] Oral 350 350 Output: Urine 0 Stool 0 Other: Voiding Method CAPD CAPD # Voids 0 1 # Bowel Movements 2 - Exam - Exam GENERAL: Sitting up in bed, tired, feels nauseated HEAD: Atraumatic, normocephalic. EYES: Pupils equal round ,conjunctiva normal. ENT: oropharynx clear without exudates. NECK: supple, no JVD. LUNGS: Nonlabored, Diminished throughout.No rhonchi, crackles or wheezes. HEART: Regular rate and rhythm without murmurs, rubs or gallops.S1S2 Normal ABDOMEN: Soft, nondistended, nontender, normoactive bowel sounds. No guarding, no rebound. EXTREMITIES: Normal range of motion, no edema, No clubbing or cyanosis. NEUROLOGICAL: Cranial nerves II through XII grossly intact. No focal deficits. SKIN: Warm, Dry, no rashes noted. - Labs CBC & Chem 7: 01/29/21 08:44 01/29/21 08:44 Assessment and Plan Assessment: -Abdominal pain, status post fall, acute pancreatitis-etiology unclear, possibly related to omeprazole, PPI converted to Pepcid trial. -Dehydration secondary to the above -suspicious lesion mid transverse colon worrisome for neoplasm, per pancreas CT, BE reports persistent focal area of narrowing mid to distal transverse colon possible neoplasm, surgery following. -Lactic acidosis -COVID-19 -Severe hypokalemia -Acute on chronic, end-stage renal disease, on PD -Syncope, etiology unclear, suspect multifactorial ,related to all the above, workup in progress. -Pneumoperitoneum, related to peritoneal dialysis catheter as per surgery review of CT. -Right shoulder and neck pain of 3 weeks status post prior fall, comminuted fracture of the medial aspect of right clavicle per CT -Weight loss of 30 pounds over the last few months, unintentional. Status post EGD and colonoscopy reporting duodenitis, erosive gastritis and a hiatal hernia and a long segment of Sykes's esophagus, colon polyp and rectal polyp with polypectomy. Pathology reporting chronic and acute peptic duodenitis, tubular adenoma in ascending colon and rectum biopsy-will require close surveillance OP. -Hyponatremia - History of Bilateral renal artery stents 2017 , revascularization unsuccessful on last admission -Acute hypoxic respiratory failure, secondary to the above -Chronic CHF exacerbation, systolic dysfunction EF 45-50%. -Hypertension -Anemia of chronic disease, iron deficient -AAA, status post stent placement, slight interval growth, possible endoleak not excluded as per CT, 7.9 cm(previous exam measured 7.7 cm) -Former nicotine dependence -Moderate mitral regurgitation -Mild pulmonary hypertension -History of Nonspecific 12 x 0.6 cm lung opacity, follow-up OP rec. -Moderate protein calorie malnutrition, status post IV albumin infusions Plan: Continue on current medication regime ,monitoring and symptomatic treatment. Labs pending. As noted above patient continues to have recurrent nausea, minimal diet intake. Barium enema results noted with further surgical recommendations pending. Encouraging protein supplements. Prognosis guarded given multiple complex medical issues. The impression and plan of care has been dictated as directed. Dr.: I performed a history and examination of this patient, discussed the same with the dictator. I agree with the dictator's note ,documented as a scribe. Any additional findings or plans will be noted. The impression and plan of care has been dictated as directed. Dr.: I performed a history and examination of this patient, discussed the same with the dictator. I agree with the dictator's note ,documented as a scribe. Any additional findings or plans will be noted.
--- NOTE | 2021-01-30 13:11 | P.PN ---
Subjective Progress Note Date: 01/30/21 CHIEF COMPLAINT: Abdominal pain HISTORY OF PRESENT ILLNESS: Patient sitting up in bed. He does complain of abdominal pain after eating. He did have one episode of vomiting yesterday. He does report having bowel movements and passing gas. Afebrile. Labs for today are pending. Patient did have barium enema shows persistent focal area of narrowing mid to distal transverse colon could correspond to CT findings and could indicate underlying neoplasm. There may be some mild irregularity of the mucosa of the proximal transverse colon. However this is more likely artifactual and appears result during this exam. PHYSICAL EXAM: VITAL SIGNS: Reviewed. GENERAL: Well-developed in no acute distress. HEENT: No sclera icterus. Extraocular movements grossly intact. Moist buccal mucosa. Head is atraumatic, normocephalic. ABDOMEN: Soft. Nondistended. NEUROLOGIC: Alert and oriented. Cranial nerves II through XII grossly intact. ASSESSMENT: 1. Pancreatitis 2. Suspected possible lesion in the mid transverse colon noted on CAT scan and barium enema 2. Epigastric abdominal pain. Status post EGD and colonoscopy with results showing duodenitis, erosive gastritis, hiatal hernia, long segment Sykes's esophagus, distending colon polyp and rectal polyp. PLAN: -consider short-term follow-up outpatient colonoscopy in 4-[address] Godwin regarding the possible lesion in the mid transverse colon -continue full liquid diet -Continue Protonix -Continue to monitor lipase Physician Bottom Buffer note has been reviewed by physician. Signing provider agrees with the documented findings, assessment, and plan of care. Objective - Vital Signs Vital signs: Vital Signs Temp 97.4 F L 01/30/21 09:12 Pulse 77 01/30/21 09:12 Resp 18 01/30/21 09:12 BP 141/65 01/30/21 09:12 Pulse Ox 95 01/30/21 09:12 Intake & Output 01/29/21 01/30/21 01/30/21 18:59 06:59 18:59 Intake Total 1050 350 Output Total 0 Balance 1050 350 Weight 70.1 kg Intake: Intake, IV Titration 700 Amount Sodium Chloride 0.9% 1, 700 000 ml @ 50 mls/hr IV . Q20H [facility] Rx#:[id number] Oral 350 350 Output: Urine 0 Stool 0 Other: Voiding Method CAPD CAPD # Voids 0 1 # Bowel Movements 2 - Labs CBC & Chem 7: 01/29/21 08:44 01/29/21 08:44
[2021-01-30 14:53] LABS: African American GFR (CKD) 10.7 (60.0-200.0); Albumin 2.8 g/dL (3.80-4.90); Albumin/Globulin Ratio 1.75 (1.60-3.17); Anion Gap 9.2 mmol/L (4.00-12.00); Calcium 7.6 mg/dL (8.7-10.3); Carbon Dioxide 26.8 mmol/L (21.6-31.8); Globulin 1.6 g/dL (1.6-3.3); Magnesium 2.1 mg/dL (1.5-2.4); Non-African American GFR(CKD) 9.3 (60.0-200.0); Potassium 3.2 mmol/L (3.5-5.5); Total Bilirubin 0.4 mg/dL (0.3-1.2); Total Protein 4.4 g/dL (6.2-8.2)
[2021-01-30] MEDS: DIALYSIS (PERIT 2.5%) 2,500 ML 62.5 G/2,500 ML BAG INTRAPERIT SCH ×2 (16:28→18:32)
[2021-01-30] MEDS ORDERED: Potassium Replacement Protocol 1 EACH MISC MISCELLANE PRN (18:27)
[2021-01-30] MEDS: POTASSIUM CHLORIDE ER 20 MEQ TAB.ER PO SCH ×2 (19:16→21:05)
[2021-01-30] MEDS ORDERED: DIALYSIS (PERIT 1.5%) 2,500 ML 37.5 G/2,500 ML BAG INTRAPERIT SCH (22:00)
[2021-01-31] MEDS: DIALYSIS (PERIT 2.5%) 2,500 ML 62.5 G/2,500 ML BAG INTRAPERIT SCH ×4 (03:54→22:05)
[2021-01-31 06:19] LABS: ALT 22 U/L (4-49); AST 32 U/L (17-59); African American GFR (CKD) 12 (>60 ml/min/1.73 sqM); Albumin 2.2 g/dL (3.5-5.0); Alkaline Phosphatase 107 U/L (38-126); Anion Gap 6 mmol/L; Blood Urea Nitrogen 29 mg/dL (9-20); Calcium 7.6 mg/dL (8.4-10.2); Carbon Dioxide 28 mmol/L (22-30); Chloride 94 mmol/L (98-107); Globulin 2.3 g/dL; Glucose 141 mg/dL (74-99); Non-African American GFR(CKD) 10 (>60 ml/min/1.73 sqM); Potassium 3.5 mmol/L (3.5-5.1); Sodium 128 mmol/L (137-145); Total Bilirubin 0.6 mg/dL (0.2-1.3); Total Protein 4.5 g/dL (6.3-8.2)
[2021-01-31] MEDS: SUCRALFATE 1 GM TAB PO SCH ×2 (09:41→16:42)
[2021-01-31] MEDS: ASCORBIC ACID 500 MG TAB PO SCH (09:42)
[2021-01-31] MEDS: CHOLECALCIFEROL 25 MCG (1000 IU) TABLET PO SCH (09:42)
[2021-01-31] MEDS: ATORVASTATIN 80 MG TAB PO SCH (09:42)
[2021-01-31] MEDS: METOPROLOL SUCCINATE (ER) 50 MG TAB.ER.24H PO SCH (09:42)
[2021-01-31] MEDS: ZINC SULFATE 220 MG CAP PO SCH (09:42)
[2021-01-31] MEDS: amLODIPine 5 MG TAB PO SCH ×2 (09:42→20:39)
[2021-01-31] MEDS: PANTOPRAZOLE 40 MG TABLET PO SCH ×2 (09:42→16:42)
[2021-01-31] MEDS: FAMOTIDINE 20 MG TAB PO SCH (09:42)
[2021-01-31] MEDS ORDERED: POTASSIUM CHLORIDE ER 20 MEQ TAB.ER PO STA (11:13)
--- NOTE | 2021-01-31 11:16 | P.PN ---
Subjective Patient is seen in follow-up for end-stage renal disease. He is maintained on peritoneal dialysis. No problems with exchanges. Does have some abdominal pain after eating. Oral intake slowly improving. Currently on full liquid diet. No chest pain or shortness of breath. Vital signs are stable. General: The patient appeared well nourished and normally developed. HEENT: Head exam is unremarkable. Neck is without jugular venous distension. LUNGS: Breath sounds decreased. HEART: Rate and Rhythm are regular. ABDOMEN: Soft, no distention noted. EXTREMITITES: 1+ edema. Objective - Vital Signs Vital signs: Vital Signs Temp 97.9 F 01/31/21 10:00 Pulse 80 01/31/21 10:00 Resp 15 01/31/21 10:00 BP 154/62 01/31/21 10:00 Pulse Ox 98 01/31/21 10:00 Intake & Output 01/30/21 01/31/21 01/31/21 18:59 06:59 18:59 Intake Total 700 150 Output Total 0 0 Balance 700 150 0 Weight 70.1 kg 63 kg Intake: IV 50 Sodium Chloride 0.9% 1, 50 000 ml @ 60 mls/hr IV . [id number] [facility] Rx#:[id number] Oral 700 100 Output: Urine 0 Stool 0 0 Other: Voiding Method CAPD CAPD CAPD # Voids 3 3 - Labs CBC & Chem 7: 01/29/21 08:44 01/31/21 05:27 Labs: Abnormal Lab Results - Last 24 Hours (Table) 01/30/21 01/31/21 Range/Units 06:15 05:27 Sodium 132 L 128 L (135-145) mmol/L Potassium 3.2 L (3.5-5.5) mmol/L Chloride 94 L (98-107) mmol/L BUN 33.0 H 29 H (9.0-27.0) mg/dL Creatinine 5.5 H 5.15 H (0.6-1.5) mg/dL Est GFR (CKD-EPI)AfAm 10.7 L (60.0-200.0) Est GFR (CKD-EPI)NonAf 9.3 L (60.0-200.0) BUN/Creatinine Ratio 6.00 L (12.00-20.00) Ratio Glucose 141 H (74-99) mg/dL Calcium 7.6 L 7.6 L (8.7-10.3) mg/dL Total Protein 4.4 L 4.5 L (6.2-8.2) g/dL Albumin 2.80 L 2.2 L (3.80-4.90) g/dL Lipase 303 H (14-60) U/L Assessment and Plan Plan: Assessment: 1. End-stage renal disease maintained on peritoneal dialysis. 2. Hyponatremia secondary to chronic kidney disease. Tolerating only liquid diet. 3. Hypokalemia from poor intake and PD losses. 4. Acute pancreatitis. Surgery following. EGD and colonoscopy done this admission revealed duodenitis, erosive gastritis, hiatal hernia, long segment Sykes's esophagus as well as descending colon and rectal polyp. Barium swallow concerning for possible neoplasm in the transverse colon. 5. Hypertension with chronic kidney disease. Stable. 6. Chronic systolic CHF with ejection fraction of 40-45% with moderate mitral regurgitation. 7. History of AAA repair with aortobiiliac stenting. 8. Covid-19 infection. Plan: I will change to peritoneal dialysis exchanges to 2.5 L every 6 hours with 2.5% dextrose solution due to edema. I will give him 2 doses of IV albumin today. Lactulose as needed for constipation. Repeat electrolytes in the morning. Replace potassium. 40 mEq today.
[2021-01-31] MEDS: ALBUMIN HUMAN 25% 50 ML in EMPTY BAG 1 BAG IVPB SCH ×4 (12:47→20:39)
--- NOTE | 2021-01-31 13:16 | P.PN ---
Subjective Progress Note Date: 01/31/21 CHIEF COMPLAINT: Abdominal pain HISTORY OF PRESENT ILLNESS: Patient sitting up in bed. He reports improvement in his abdominal pain. He was able to tolerate his diet. He denies any nausea or vomiting. Afebrile. Lipase is down to 303 per yesterday's labs. Patient did have barium enema shows persistent focal area of narrowing mid to distal transverse colon could correspond to CT findings and could indicate underlying neoplasm. There may be some mild irregularity of the mucosa of the proximal transverse colon. However this is more likely artifactual and appears result during this exam. PHYSICAL EXAM: VITAL SIGNS: Reviewed. GENERAL: Well-developed in no acute distress. HEENT: No sclera icterus. Extraocular movements grossly intact. Moist buccal mucosa. Head is atraumatic, normocephalic. ABDOMEN: Soft. Nondistended. Nontender NEUROLOGIC: Alert and oriented. Cranial nerves II through XII grossly intact. ASSESSMENT: 1. Pancreatitis 2. Suspected possible lesion in the mid transverse colon noted on CAT scan and barium enema 2. Epigastric abdominal pain. Status post EGD and colonoscopy with results showing duodenitis, erosive gastritis, hiatal hernia, long segment Sykes's esophagus, distending colon polyp and rectal polyp. PLAN: -Recommend short-term follow-up outpatient colonoscopy in 4-[address] Godwin regarding the possible lesion in the mid transverse colon -continue full liquid diet and advance as tolerated -Continue Protonix Physician State [employer] note has been reviewed by physician. Signing provider agrees with the documented findings, assessment, and plan of care. Objective - Vital Signs Vital signs: Vital Signs Temp 97.9 F 01/31/21 10:00 Pulse 80 01/31/21 10:00 Resp 15 01/31/21 10:00 BP 154/62 01/31/21 10:00 Pulse Ox 98 01/31/21 10:00 Intake & Output 01/30/21 01/31/21 01/31/21 18:59 06:59 18:59 Intake Total 700 150 Output Total 0 0 Balance 700 150 0 Weight 70.1 kg 63 kg Intake: IV 50 Sodium Chloride 0.9% 1, 50 000 ml @ 60 mls/hr IV . [id number] [facility] Rx#:[id number] Oral 700 100 Output: Urine 0 Stool 0 0 Other: Voiding Method CAPD CAPD CAPD # Voids 3 3 - Labs CBC & Chem 7: 01/29/21 08:44 01/31/21 05:27 Labs: Abnormal Lab Results - Last 24 Hours (Table) 01/30/21 01/31/21 Range/Units 06:15 05:27 Sodium 132 L 128 L (135-145) mmol/L Potassium 3.2 L (3.5-5.5) mmol/L Chloride 94 L (98-107) mmol/L BUN 33.0 H 29 H (9.0-27.0) mg/dL Creatinine 5.5 H 5.15 H (0.6-1.5) mg/dL Est GFR (CKD-EPI)AfAm 10.7 L (60.0-200.0) Est GFR (CKD-EPI)NonAf 9.3 L (60.0-200.0) BUN/Creatinine Ratio 6.00 L (12.00-20.00) Ratio Glucose 141 H (74-99) mg/dL Calcium 7.6 L 7.6 L (8.7-10.3) mg/dL Total Protein 4.4 L 4.5 L (6.2-8.2) g/dL Albumin 2.80 L 2.2 L (3.80-4.90) g/dL Lipase 303 H (14-60) U/L
--- NOTE | 2021-01-31 14:01 | P.PN ---
Subjective Progress Note Date: 01/31/21 This is a 75-year-old gentleman with past medical history of hypertension, end- stage renal disease on peritoneal dialysis, abdominal aortic aneurysm-status post stent placement, bilateral renal artery stents, moderate mitral regurgitation,former nicotine dependence prided into the ER via EMS status post fall. He reports standing up at the sink in water and the next thing he knew, he was waking up on the floor. Denies incontinence of urine or bowel movement, believes he hit his head. Reports mid epigastric abdominal pain accompanied by nausea and vomiting 3 days. Currently no abdominal pain, nausea and vomiting have responded to Zofran. Reports neck and right shoulder pain that has been present for about 3 weeks secondary to prior fall. Denies fevers, dyspnea. Denies lightheadedness, dizziness or focal deficits. Denies back pain. Denies chest pain, palpitations or shortness of breath. Worsening renal function. Reports compliant with his peritoneal dialysis. Last peritoneal dialysis was last night.Patient initially was scheduled today with Dr. Godwin for endoscopy procedure related to unexplained 15-20 pound weight loss over the last few months.Vital signs stable, maintaining O2 sats in the 90s on room air.Afebrile, WBC 13.3. Hemoglobin 14.8, platelets 154, INR 1. Sodium 137, potassium 2.9 BUN 49, creatinine 10.48. Magnesium 3.3 Plasma lactic acid on admission 4.6, with IV fluid hydration down to 2.8 T bili, LFTs within normal limits. Amylase 639, lipase 2074 Positive for coronavirus. Right shoulder x-ray reporting no acute fracture or dislocation, osteoarthritis( history of trauma 3 weeks prior). Head/C-spine CT reported No acute fracture or dislocation of the C-spine, no acute intracranial hemorrhage, mass effect or midline shift, comminuted Medial right clavicular fracture of questionable age. Chest x-ray reporting pneumoperitoneum, para esophageal hernia with partial intrathoracic stomach. Abdominal ultrasound reporting moderate ascites, only partial visualization of pancreas, possible cirrhosis, right renal atrophy. Abdominal pelvis CT reported slight interval growth of abdominal aortic aneurysm, and endoleak not excluded, atrophic kidneys, ascites, postprocedural changes. 01/22/2021 maintained on IV fluid hydration, nausea 1 this morning-received Zofran, feeling better .received multiple potassium supplements, currently up to 3.7 . BUN 61, creatinine 10.13. Currently maintained on CAPD exchanges. Amylase and lipase trending down, 422 in 1045 evaluated by surgery, reviewed CT, reporting free fluid and pneumoperitoneum consistent with indwelling PD cath. Patient initially scheduled for EGD and colonoscopy yesterday and had been taking a bowel prep, surgery discussing proceeding with EGD/colonoscopy inpatient. Afebrile. Hypertensive. 01/23/2021 labs pending. NPO, scheduled for EGD and colonoscopy today. Denies nausea, vomiting. Denies abdominal pain. Denies chest pain, palpitations or shortness of breath. Norvasc added yesterday. Systolic pressures ranging in the 120s to 150s. Maintaining O2 sats in the 90s on 2 L nasal cannula, O2 sat on room air 89%. 01/24/2021 and sitting up in chair, complaining of mild dizziness and mild right upper quadrant abdominal pain. Lipase increased to 1234. Tolerating regular diet, denies nausea/emesis. Patient underwent EGD and colonoscopy yesterday, tolerated procedure well. EGD revealed duodenitis, erosive gastritis and a hiatal hernia and a long segment of Sykes's esophagus. Colonoscopy revealed colon polyp and rectal polyp with polypectomy. Potassium 2.9, receiving potassium supplements. Creatinine 7.29. Sodium 129, IV fluids discontinued. Denies chest pain, palpitations or shortness of breath. (01/26/2021 Mr. Fowler is a patient well-known to me who underwent EGD and colonoscopy during this hospital stay with a subsequent diagnosis of esophagitis with evidence of Sykes's esophagitis Recent diagnosis of pancreatitis is somewhat perplexing, patient had gallbladder removed, is a non-drinker, no CT evidence of pancreatitis, there is some data in the literature suggesting that proton pump inhibitors most specifically omeprazole can result in acute pancreatitis prior to this admission he had been on omeprazole for some time more than 2 years intermittently. The difficulty being the PPIs are the drug of choice for Sykes's, discussed this issue with Dr. Mcadams about an we've decided to trial Pepcid for approximately 10 days to see if the pancreatitis calms down and then resume PPIs if tolerable Stopped pantoprazole today, started famotidine 20 mg twice daily and follow closely.) 01/27/2021 lipase continues increasing, up to 3047. Patient is asymptomatic, no nausea vomiting or diarrhea, no abdominal pain. Patient's diet had been mary lou ngraded, placed on bowel rest, tolerated ice chips throughout the night. Reports positive bowel movement yesterday. Maintained on gentle IV fluid hydration with sodium 131, creatinine 6.2, magnesium 1.7. Continue on peritoneal dialysis .Denies chest pain, palpitations or shortness of breath. Pathology noted, reporting chronic and acute peptic peptic duodenitis, reactive /chemical gastropathy, H. pylori not identified, Sykes's mucosa negative for dysplasia, ascending colon and rectum biopsy reporting tubular adenoma. Afebrile. 01/28/2021 Lipase down to 614, creatinine continue to improving down to 6. Maintained on peritoneal dialysis. Denies abdominal pain. Receiving magnesium supplementation for magnesium of 1.6. Albumin 2.1, receiving IV albumin. Diet intake improving, consuming 75% of breakfast plus ensure supplements. Continues on IV normal saline with sodium improving up to 132. 01/29/21 and patient is scheduled for barium enema pancreas CT reported suspicious lesion mid transverse colon worrisome for neoplasm and patient is scheduled for barium enema today. Labs pending. Denies chest pain, palpitations or shortness of breath. 01/30/2021 BM completed yesterday reporting persistent focal area of narrowing mid to distal transverse colon corresponding to CT findings possible underlying neoplasm, possible mild irregularity of the mucosa of the proximal transverse colon. Reports not feeling well today with recurrent nausea. Denies lightheadedness dizziness or focal deficits. Denies chest pain, palpitations or shortness of breath. Labs pending. Afebrile. 01/31/2021 feels better today. Increased edema. Diet advanced to full liquids, yesterday for lunch. Denies abdominal discomfort,denies nausea. Sodium 128, creatinine down to 5.15. Objective - Vital Signs Vital signs: Vital Signs Temp 97.8 F 01/31/21 08:03 Pulse 79 01/31/21 08:03 Resp 18 01/31/21 08:03 BP 144/54 01/31/21 08:03 Pulse Ox 95 01/31/21 08:03 Intake & Output 01/30/21 01/31/21 01/31/21 18:59 06:59 18:59 Intake Total 700 150 Output Total 0 0 Balance 700 150 0 Weight 70.1 kg 63 kg Intake: IV 50 Sodium Chloride 0.9% 1, 50 000 ml @ 60 mls/hr IV . [id number] [facility] Rx#:[id number] Oral 700 100 Output: Urine 0 Stool 0 0 Other: Voiding Method CAPD CAPD CAPD # Voids 3 3 - Exam - Exam GENERAL: Sitting up in chair, no acute distress HEAD: Atraumatic, normocephalic. EYES: Pupils equal round ,conjunctiva normal. ENT: oropharynx clear without exudates. Oral mucosa moist NECK: supple, no JVD. LUNGS: Nonlabored, Diminished throughout.No rhonchi, crackles or wheezes. HEART: Regular rate and rhythm without murmurs, rubs or gallops.S1S2 Normal ABDOMEN: Soft, nondistended, nontender, normoactive bowel sounds. No guarding, no rebound. EXTREMITIES: Normal range of motion, positive edema ,No clubbing or cyanosis. NEUROLOGICAL: Cranial nerves II through XII grossly intact. No focal deficits. SKIN: Warm, Dry, no rashes noted. - Labs CBC & Chem 7: 01/29/21 08:44 01/31/21 05:27 Labs: Abnormal Lab Results - Last 24 Hours (Table) 01/30/21 01/31/21 Range/Units 06:15 05:27 Sodium 132 L 128 L (135-145) mmol/L Potassium 3.2 L (3.5-5.5) mmol/L Chloride 94 L (98-107) mmol/L BUN 33.0 H 29 H (9.0-27.0) mg/dL Creatinine 5.5 H 5.15 H (0.6-1.5) mg/dL Est GFR (CKD-EPI)AfAm 10.7 L (60.0-200.0) Est GFR (CKD-EPI)NonAf 9.3 L (60.0-200.0) BUN/Creatinine Ratio 6.00 L (12.00-20.00) Ratio Glucose 141 H (74-99) mg/dL Calcium 7.6 L 7.6 L (8.7-10.3) mg/dL Total Protein 4.4 L 4.5 L (6.2-8.2) g/dL Albumin 2.80 L 2.2 L (3.80-4.90) g/dL Lipase 303 H (14-60) U/L Assessment and Plan Assessment: -Abdominal pain, status post fall, acute pancreatitis-etiology unclear, possibly related to omeprazole, PPI converted to Pepcid trial. -Dehydration secondary to the above -suspicious lesion mid transverse colon worrisome for neoplasm, per pancreas CT, BE reports persistent focal area of narrowing mid to distal transverse colon possible neoplasm, surgery following. -Lactic acidosis -COVID-19 -Severe hypokalemia -Acute on chronic, end-stage renal disease, on PD -Syncope, etiology unclear, suspect multifactorial ,related to all the above, workup in progress. -Pneumoperitoneum, related to peritoneal dialysis catheter as per surgery review of CT. -Right shoulder and neck pain of 3 weeks status post prior fall, comminuted fracture of the medial aspect of right clavicle per CT -Weight loss of 30 pounds over the last few months, unintentional. Status post EGD and colonoscopy reporting duodenitis, erosive gastritis and a hiatal hernia and a long segment of Sykes's esophagus, colon polyp and rectal polyp with polypectomy. Pathology reporting chronic and acute peptic duodenitis, tubular adenoma in ascending colon and rectum biopsy-will require close surveillance OP. -Hyponatremia - History of Bilateral renal artery stents 2018 , revascularization unsuccessful on last admission -Acute hypoxic respiratory failure, secondary to the above -Chronic CHF exacerbation, systolic dysfunction EF 45-50%. -Hypertension -Anemia of chronic disease, iron deficient -AAA, status post stent placement, slight interval growth, possible endoleak not excluded as per CT, 7.9 cm(previous exam measured 7.7 cm) -Former nicotine dependence -Moderate mitral regurgitation -Mild pulmonary hypertension -History of Nonspecific 12 x 0.6 cm lung opacity, follow-up OP rec. -Moderate protein calorie malnutrition, status post IV albumin infusions Plan: Continue on current medication regime ,monitoring and symptomatic treatment. Receiving IV albumin. Peritoneal dialysis adjusted to 2.5% every 6 hours. Barium enema results noted -surgery recommending outpatient follow-up colonoscopy in 4-6 weeks. Encouraging protein supplements. Advance diet as to lerated. The impression and plan of care has been dictated as directed. : I performed a history and examination of this patient, discussed the same with the dictator. I agree with the dictator's note ,documented as a scribe. Any additional findings or plans will be noted. The impression and plan of care has been dictated as directed. : I performed a history and examination of this patient, discussed the same with the dictator. I agree with the dictator's note ,documented as a scribe. Any additional findings or plans will be noted.
[2021-01-31] MEDS: HYDROcodone/APAP 5-325MG 1 EACH TAB PO PRN (23:02)
[2021-02-01] MEDS: DIALYSIS (PERIT 2.5%) 2,500 ML 62.5 G/2,500 ML BAG INTRAPERIT SCH ×2 (04:10→10:19)
[2021-02-01 05:00] VITALS: RESP 18
[2021-02-01] MEDS: PANTOPRAZOLE 40 MG TABLET PO SCH (09:12)
[2021-02-01] MEDS: CHOLECALCIFEROL 25 MCG (1000 IU) TABLET PO SCH (09:12)
[2021-02-01] MEDS: FAMOTIDINE 20 MG TAB PO SCH (09:12)
[2021-02-01] MEDS: ZINC SULFATE 220 MG CAP PO SCH (09:12)
[2021-02-01] MEDS: ASCORBIC ACID 500 MG TAB PO SCH (09:13)
[2021-02-01] MEDS: METOPROLOL SUCCINATE (ER) 50 MG TAB.ER.24H PO SCH (09:13)
[2021-02-01] MEDS: SUCRALFATE 1 GM TAB PO SCH (09:13)
[2021-02-01] MEDS: amLODIPine 5 MG TAB PO SCH (09:13)
[2021-02-01] MEDS: ATORVASTATIN 80 MG TAB PO SCH (09:13)
[2021-02-01 10:21] VITALS: BP 140/67; PULSE 81; TEMP 98
--- NOTE | 2021-02-01 11:26 | P.PN ---
Progress Note - Text Progress Note Date: 02/01/21 The patient resting comfortably in his bed. He is tolerating diet. He denies any abdominal pain. On exam vitals are stable. Abdomen soft. Resolved abdominal pain/tightness. Patiently discharged home per the medical service.
--- NOTE | 2021-02-01 12:23 | P.PN ---
Subjective Progress Note Date: 02/01/21 f/u for esrd. tolerating dialysis, wants to go home. Objective - Vital Signs Vital signs: Vital Signs Temp 98.0 F 02/01/21 10:19 Pulse 81 02/01/21 10:19 Resp 18 02/01/21 10:19 BP 140/67 02/01/21 10:19 Pulse Ox 95 02/01/21 10:19 Intake & Output 01/31/21 02/01/21 02/01/21 18:59 06:59 18:59 Output Total 0 0 Balance 0 0 Weight 64.5 kg Output: Urine 0 Stool 0 0 Other: Voiding Method CAPD CAPD # Voids 3 - Exam no acute distress s1 s2 herd lungs clear edema - Labs CBC & Chem 7: 01/29/21 08:44 01/31/21 05:27 Assessment and Plan Assessment: 1. esrd on pd 2. acute pancreatitis 3. htn with esrd 4. anemia with esrd Plan: 1. renally stable, can be d/c home if medically sable
--- NOTE | 2021-02-01 12:32 | P.DS ---
Providers Date of admission: 01/21/21 09:38 Expected date of discharge: 02/01/21 Attending physician: Shaq Starr Consults: 01/21/21 09:26 Consult Physician Urgent Consulting Provider: Ana Dsouza Consult Reason/Comments: dialysis patient, cr 10 Do you want consulting provider notified?: Yes 01/21/21 11:05 Consult Physician Routine Consulting Provider: Abbe Godwin Consult Reason/Comments: pneumoperitoneum,s/p fall, abd. pain Do you want consulting provider notified?: Yes Primary care physician: [facility] Course: hospital course This is a 75-year-old gentleman with past medical history of hypertension, end- stage renal disease on peritoneal dialysis, abdominal aortic aneurysm-status post stent placement, bilateral renal artery stents, moderate mitral regurgitation,former nicotine dependence prided into the ER via EMS status post fall. He reports standing up at the sink in water and the next thing he knew, he was waking up on the floor. Denies incontinence of urine or bowel movement, believes he hit his head. Reports mid epigastric abdominal pain accompanied by nausea and vomiting 3 days. Currently no abdominal pain, nausea and vomiting have responded to Zofran. Reports neck and right shoulder pain that has been present for about 3 weeks secondary to prior fall. Denies fevers, dyspnea. Denies lightheadedness, dizziness or focal deficits. Denies back pain. Denies chest pain, palpitations or shortness of breath. Worsening renal function. Reports compliant with his peritoneal dialysis. Last peritoneal dialysis was last night.Patient initially was scheduled today with Dr. Godwin for endoscopy procedure related to unexplained 15-20 pound weight loss over the last few months.Vital signs stable, maintaining O2 sats in the 90s on room air.Afebrile, WBC 13.3. Hemoglobin 14.8, platelets 154, INR 1. Sodium 137, potassium 2.9 BUN 49, creatinine 10.48. Magnesium 3.3 Plasma lactic acid on admission 4.6, with IV fluid hydration down to 2.8 T bili, LFTs within normal limits. Amylase 639, lipase 2074 Positive for coronavirus. Right shoulder x-ray reporting no acute fracture or dislocation, osteoarthritis( history of trauma 3 weeks prior). Head/C-spine CT reported No acute fracture or dislocation of the C-spine, no acute intracranial hemorrhage, mass effect or midline shift, comminuted Medial right clavicular fracture of questionable age. Chest x-ray reporting pneumoperitoneum, para esophageal hernia with partial intrathoracic stomach. Abdominal ultrasound reporting moderate ascites, only partial visualization of pancreas, possible cirrhosis, right renal atrophy. Abdominal pelvis CT reported slight interval growth of abdominal aortic aneurysm, and endoleak not excluded, atrophic kidneys, ascites, postprocedural changes. 01/22/2021 maintained on IV fluid hydration, nausea 1 this morning-received Zofran, feeling better .received multiple potassium supplements, currently up to 3.7 . BUN 61, creatinine 10.13. Currently maintained on CAPD exchanges. Amylase and lipase trending down, 422 in 1045 evaluated by surgery, reviewed CT, reporting free fluid and pneumoperitoneum consistent with indwelling PD cath. Patient initially scheduled for EGD and colonoscopy yesterday and had been taking a bowel prep, surgery discussing proceeding with EGD/colonoscopy inpatient. Afebrile. Hypertensive. 01/23/2021 labs pending. NPO, scheduled for EGD and colonoscopy today. Denies nausea, vomiting. Denies abdominal pain. Denies chest pain, palpitations or shortness of breath. Norvasc added yesterday. Systolic pressures ranging in the 120s to 150s. Maintaining O2 sats in the 90s on 2 L nasal cannula, O2 sat on room air 89%. 01/24/2021 and sitting up in chair, complaining of mild dizziness and mild right upper quadrant abdominal pain. Lipase increased to 1234. Tolerating regular diet, denies nausea/emesis. Patient underwent EGD and colonoscopy yesterday, tolerated procedure well. EGD revealed duodenitis, erosive gastritis and a hiatal hernia and a long segment of Sykes's esophagus. Colonoscopy revealed colon polyp and rectal polyp with polypectomy. Potassium 2.9, receiving potassium supplements. Creatinine 7.29. Sodium 129, IV fluids discontinued. Denies chest pain, palpitations or shortness of breath. (01/26/2021 Mr. Fowler is a patient well-known to me who underwent EGD and colonoscopy during this hospital stay with a subsequent diagnosis of esophagitis with evidence of Sykes's esophagitis Recent diagnosis of pancreatitis is somewhat perplexing, patient had gallbladder removed, is a non-drinker, no CT evidence of pancreatitis, there is some data in the literature suggesting that proton pump inhibitors most specifically omeprazole can result in acute pancreatitis prior to this admission he had been on omeprazole for some time more than 2 years intermittently. The difficulty being the PPIs are the drug of choice for Sykes's, discussed this issue with Dr. Mcadams about an we've decided to trial Pepcid for approximately 10 days to see if the pancreatitis calms down and then resume PPIs if tolerable Stopped pantoprazole today, started famotidine 20 mg twice daily and follow closely.) 01/27/2021 lipase continues increasing, up to 3047. Patient is asymptomatic, no nausea vomiting or diarrhea, no abdominal pain. Patient's diet had been downgraded, placed on bowel rest, tolerated ice chips throughout the night. Reports positive bowel movement yesterday. Maintained on gentle IV fluid hydration with sodium 131, creatinine 6.2, magnesium 1.7. Continue on peritoneal dialysis .Denies chest pain, palpitations or shortness of breath. Pathology noted, reporting chronic and acute peptic peptic duodenitis, reactive /chemical gastropathy, H. pylori not identified, Sykes's mucosa negative for dysplasia, ascending colon and rectum biopsy reporting tubular adenoma. Afebrile. 01/28/2021 Lipase down to 614, creatinine continue to improving down to 6. Maintained on peritoneal dialysis. Denies abdominal pain. Receiving magnesium supplementation for magnesium of 1.6. Albumin 2.1, receiving IV albumin. Diet intake improving, consuming 75% of breakfast plus ensure supplements. Continues on IV normal saline with sodium improving up to 132. 01/29/21 and patient is scheduled for barium enema pancreas CT reported suspicious lesion mid transverse colon worrisome for neoplasm and patient is scheduled for barium enema today. Labs pending. Denies chest pain, palpitations or shortness of breath. 01/30/2021 BM completed yesterday reporting persistent focal area of narrowing mid to distal transverse colon corresponding to CT findings possible underlying neoplasm, possible mild irregularity of the mucosa of the proximal transverse colon. Reports not feeling well today with recurrent nausea. Denies lightheadedness dizziness or focal deficits. Denies chest pain, palpitations or shortness of breath. Labs pending. Afebrile. 01/31/2021 feels better today. Increased edema. Diet advanced to full liquids, yesterday for lunch. Denies abdominal discomfort,denies nausea. Sodium 128, creatinine down to 5.15. 02/01/2021: cleared by consultants and doing much better. Requesting D/C. D/C DIAGNOSIS Abdominal pain, status post fall, acute pancreatitis-etiology unclear, possibly related to omeprazole, PPI converted to Pepcid trial. -Dehydration -suspicious lesion mid transverse colon worrisome for neoplasm, per pancreas CT, BE reports persistent focal area of narrowing mid to distal transverse colon possible neoplasm, hort term colonoscpy f/u (6 weeks) -COVID-19 -Severe hypokalemia -Acute on chronic, end-stage renal disease, on PD -Syncope, etiology unclear, suspect multifactorial -Pneumoperitoneum, related to peritoneal dialysis catheter -Right shoulder and neck pain of 3 weeks status post prior fall, comminuted fracture of the medial aspect of right clavicle -Weight loss of 30 pounds over the last few months, unintentional. Status post EGD and colonoscopy reporting duodenitis, erosive gastritis and a hiatal hernia and a long segment of Sykes's esophagus, colon polyp and rectal polyp with polypectomy. Pathology reporting chronic and acute peptic duodenitis, tubular adenoma in ascending colon and rectum biopsy-will require close surveillance OP. -Hyponatremia - History of Bilateral renal artery stents 2018 , revascularization unsuccessful on last admission -Acute hypoxic respiratory failure, secondary to the above -Chronic CHF systolic dysfunction EF 45-50%. -Hypertension -Anemia of chronic disease, iron deficient -AAA, status post stent placement, slight interval growth, per CT, 7.9 cm(previous exam measured 7.7 cm) -Former nicotine dependence -Moderate mitral regurgitation -Mild pulmonary hypertension -History of Nonspecific 12 x 0.6 cm lung opacity -Moderate protein calorie malnutrition, Patient Condition at Discharge: Poor Plan - Discharge Summary Discharge Rx Participant: Yes New Discharge Prescriptions: New Sucralfate [Carafate] 1 gm PO AC-BID #60 tab amLODIPine [Norvasc] 5 mg PO BID #60 tab Famotidine [Pepcid] 20 mg PO DAILY #30 tab Continue Atorvastatin [Lipitor] 80 mg PO DAILY Calcium Acetate [PhosLo] 667 mg PO AC-TID Metoprolol Succinate (ER) [Toprol XL] 50 mg PO DAILY HYDROcodone/APAP 5-325MG [[place] 5-325] 1 tab PO Q6H PRN PRN Reason: Pain Discharge Medication List Atorvastatin [Lipitor] 80 mg PO DAILY 01/12/19 [History] Calcium Acetate [PhosLo] 667 mg PO AC-TID 08/28/20 [History] HYDROcodone/APAP 5-325MG [[place] 5-325] 1 tab PO Q6H PRN 01/21/21 [History] Metoprolol Succinate (ER) [Toprol XL] 50 mg PO DAILY 01/21/21 [History] Famotidine [Pepcid] 20 mg PO DAILY #30 tab 02/01/21 [Rx] Sucralfate [Carafate] 1 gm PO AC-BID #60 tab 02/01/21 [Rx] amLODIPine [Norvasc] 5 mg PO BID #60 tab 02/01/21 [Rx] Follow up Appointment(s)/Referral(s): Abbe Godwin MD [Medical Doctor] - 1 Week Sebas Garza Jr, DO [Primary Care Provider] - 3 Days [facility], [NON-STAFF] - As Needed Patient Instructions/Handouts: Pancreatitis (DC), Hypokalemia (DC) Activity/Diet/Wound Care/Special Instructions: [facility] - [phone] Ext [phone] code [id number] Discharge Disposition: HOME WITH HOME HEALTH SERVICES
== END 2021-02-01 13:55 | disposition home health service (06) | DRG 438 ==
LOC: EC 05:31 → 3SCARD 09:38 → 4SSUR 01-26 12:44
PROVIDERS: ADMIT Family Medicine; ATTEND Family Medicine
PROC: 0DB78ZX Excision of Stomach, Pylorus, Via Natural or Artificial Opening Endoscopic, Diagnostic (ICD-10-PCS; principal; 2021-01-23 13:00)
PROC: 0DBP8ZX Excision of Rectum, Via Natural or Artificial Opening Endoscopic, Diagnostic (ICD-10-PCS; principal; 2021-01-23 13:00)
PROC: 0DBK8ZX Excision of Ascending Colon, Via Natural or Artificial Opening Endoscopic, Diagnostic (ICD-10-PCS; principal; 2021-01-23 13:00)
PROC: 0DB98ZX Excision of Duodenum, Via Natural or Artificial Opening Endoscopic, Diagnostic (ICD-10-PCS; principal; 2021-01-23 13:00)
PROC: 0DB58ZX Excision of Esophagus, Via Natural or Artificial Opening Endoscopic, Diagnostic (ICD-10-PCS; principal; 2021-01-23 13:00)
DX: K85.90 Acute pancreatitis without necrosis or infection, unspecified (principal); N18.6 End stage renal disease; U07.1 COVID-19; I50.23 Acute on chronic systolic (congestive) heart failure; J96.01 Acute respiratory failure with hypoxia; E44.0 Moderate protein-calorie malnutrition; E87.1 Hypo-osmolality and hyponatremia; E87.2 Acidosis; I13.2 Hypertensive heart and chronic kidney disease with heart failure and with stage 5 chronic kidney disease, or end stage renal disease; R18.8 Other ascites; D63.1 Anemia in chronic kidney disease; Z68.23 Body mass index [BMI] 23.0-23.9, adult; E78.5 Hyperlipidemia, unspecified; E86.0 Dehydration; E87.6 Hypokalemia; I27.20 Pulmonary hypertension, unspecified; I34.0 Nonrheumatic mitral (valve) insufficiency; I71.4 Abdominal aortic aneurysm, without rupture; K20.90 Esophagitis, unspecified without bleeding; T47.1X5A Adverse effect of other antacids and anti-gastric-secretion drugs, initial encounter; K22.70 Barrett's esophagus without dysplasia; K29.60 Other gastritis without bleeding; K29.80 Duodenitis without bleeding; K44.9 Diaphragmatic hernia without obstruction or gangrene; K62.1 Rectal polyp; D12.2 Benign neoplasm of ascending colon; S42.001A Fracture of unspecified part of right clavicle, initial encounter for closed fracture; W18.30XA Fall on same level, unspecified, initial encounter; Z79.899 Other long term (current) drug therapy; Z80.0 Family history of malignant neoplasm of digestive organs; Z82.49 Family history of ischemic heart disease and other diseases of the circulatory system; Z86.79 Personal history of other diseases of the circulatory system; Z87.19 Personal history of other diseases of the digestive system; Z87.891 Personal history of nicotine dependence; Z91.81 History of falling; Z99.2 Dependence on renal dialysis; K64.8 Other hemorrhoids; K64.4 Residual hemorrhoidal skin tags; Z95.9 Presence of cardiac and vascular implant and graft, unspecified; E83.42 Hypomagnesemia; Z90.49 Acquired absence of other specified parts of digestive tract; K31.9 Disease of stomach and duodenum, unspecified; Z88.8 Allergy status to other drugs, medicaments and biological substances; K59.00 Constipation, unspecified; E83.9 Disorder of mineral metabolism, unspecified; Z79.891 Long term (current) use of opiate analgesic
CPT/HCPCS: 36415; 43239; 45385; 70450; 71045; 71046; 72125; 74160; 74176; 74270; 76705; 80048; 80053; 80076; 82150; 82787; 83605; 83690; 83735; 84100; 84132; 84478; 85025; 85027; 85610; 85730; 86038; 87635; 88305; 93005; 94760; 96365; 96366; 96367; 96375; 99285

== ENCOUNTER → 2021-04-07 | Outpatient (CLI) | payer MEDICARE ==
[2021-04-07 19:13] LABS: HCT 36.3 % (39.6-50.0); HGB 11.6 g/dL (13.0-17.0); MCH 33.7 pg (27.0-32.0); MCV 105.5 fL (80.0-97.0); Mean Platelet Volume 11.4 fL (9.5-12.2); Platelet Count 192 X 10*3/uL (140-440); RBC 3.44 X 10*6/uL (4.40-5.60); RDW 12.9 % (11.5-14.5); WBC 5.41 X 10*3/uL (4.50-10.00)
[2021-04-07 19:44] LABS: Basophils # (A) 0.03 X 10*3/uL (0.00-0.10); Basophils % (A) 0.6 %; Eosinophils # (A) 0.11 X 10*3/uL (0.04-0.35); Lymphocytes # (A) 1.09 X 10*3/uL (0.90-5.00); Lymphocytes % (A) 20.1 %; Monocytes # (A) 0.53 X 10*3/uL (0.20-1.00); Monocytes % (A) 9.8 %; Neutrophils # (A) 3.62 X 10*3/uL (1.80-7.70); Neutrophils % (A) 66.9 %
== END | disposition home or self-care (01) ==
LOC: LABWHC1 10:29
PROVIDERS: ATTEND Family Medicine
DX: Z99.2 Dependence on renal dialysis (principal)
CPT/HCPCS: 36415; 85025

== ENCOUNTER 2021-04-29 08:00 | Day surgery (SDC) | payer MEDICARE ==
[2021-04-25 11:53] VITALS: BMI 18.7
[~2021-04-29 08:00] MED LIST changes: -ACETAMINOPHEN TAB 500 MG TAB PO ONE; -DEXAMETHASONE SOD PHOSPHATE 4 MG/ML 1 ML VIAL IV ONE; -HYDROmorphone 0.5 MG/0.5 ML SYRINGE IVP PRN; -ONDANSETRON 4 MG/2 ML VIAL IVP ONE; -Pre Op ABX Message 1 EACH MISC MISCELLANE ONE
[2021-04-29 08:22] VITALS: TEMP 97.8
[2021-04-29] MEDS ORDERED: LACTATED RINGERS 1,000 ML IV ONE ×2 (08:22→09:26)
[2021-04-29] MEDS ORDERED: PROPOFOL 10 MG/ML 20 ML VIAL IV ONE (09:03)
--- NOTE | 2021-04-29 09:10 | P.GSHP ---
History of Present Illness H&P Date: 04/29/21 Chief Complaint: Colon polyp 75-year-old male known to our service. Patient underwent colonoscopy earlier this year. He was found have multiple polyps. Patient had had a CAT scan for the evaluation of pancreatitis and a possible transverse colon mass was seen. Barium enema was then performed which showed a suspicious narrowing in the distal transverse colon. Patient is otherwise asymptomatic. He has had weight loss. No rectal bleeding. No pain. No bloating. Past Medical History Past Medical History: GERD/Reflux, Hearing Disorder / Deafness, Hypertension, Renal Disease Additional Past Medical History / Comment(s): AAA. Peritoneal dialysis port daily. Pancreatitis 12/2020. Colon polyps. Wgt loss 32# est in past several months. History of Any Multi-Drug Resistant Organisms: None Reported Past Surgical History: Cholecystectomy, Hernia Repair, Orthopedic Surgery Additional Past Surgical History / Comment(s): AAA stent placement, bilat inguinal hernia repair, peritoneal dialysis placement. ORIF Rt hand w/ pins. EGD, Colonoscopy. Past Anesthesia/Blood Transfusion Reactions: No Reported Reaction Smoking Status: Former smoker - Past Family History Sister(s) Family Medical History: Cancer, Myocardial Infarction ([place]) Additional Family Medical History / Comment(s): esophageal ca Brother(s) Family Medical History: Pneumonia Medications and Allergies Home Medications Medication Instructions Recorded Confirmed Type Atorvastatin [Lipitor] 80 mg PO DAILY 01/12/19 04/25/21 History Calcium Acetate [PhosLo] 667 mg PO AC-TID 08/28/20 04/25/21 History Metoprolol Succinate (ER) [Toprol 50 mg PO QAM 01/21/21 04/25/21 History XL] Aspirin 81 mg PO DAILY 04/18/21 04/25/21 History Epoetin Brian [Epogen] 2,500 unit IJ Q7D 04/18/21 04/25/21 History Famotidine [Pepcid] 20 mg PO QAM 04/18/21 04/25/21 History Midodrine HCl 5 mg PO DAILY PRN 04/18/21 04/25/21 History Potassium Chloride 10 meq PO DAILY 04/18/21 04/25/21 History dronabinoL [Marinol] 5 mg PO AC-BID 04/18/21 04/25/21 History Cholecalciferol [Vitamin D3 (25 25 mcg PO DAILY 04/25/21 04/25/21 History Mcg = 1000 Iu)] Heparin Sodium,Porcine [Heparin 6 ml IV HS 04/25/21 04/25/21 History Sodium] Menthol [Biofreeze] 1 applic TOPICAL DIRECTED PRN 04/25/21 04/25/21 History Sucralfate [Carafate] 1 gm PO DAILY 04/25/21 04/25/21 History Allergies Allergy/AdvReac Type Severity Reaction Status Date / Time heparin Allergy Severe HIT/LARRY-see Verified 04/25/21 11:19 comment cyclobenzaprine Allergy Rash/Hives Verified 04/25/21 11:19 [From Flexeril] Surgical - Exam Vital Signs Temp Pulse Resp BP Pulse Ox 97.8 F 58 L 18 178/71 98 04/29/21 08:21 04/29/21 08:21 04/29/21 08:21 04/29/21 08:21 04/29/21 08:21 Physical exam: General: Well-developed, somewhat malnourished HEENT: Normocephalic, sclerae nonicteric Abdomen: Nontender, nondistended Extremities: No edema Neuro: Alert and oriented Assessment and Plan (1) Colon polyp Narrative/Plan: Will proceed with colonoscopy Current Visit: Yes Status: Acute Code(s): K63.5 - POLYP OF COLON SNOMED Co de(s): 56992031
--- NOTE | 2021-04-29 09:25 | P.PCN ---
Date of Procedure: 04/29/21 Procedure(s) Performed: PREOPERATIVE DIAGNOSIS: Colon polyps, recent abnormal CAT scan and barium enema POSTOPERATIVE DIAGNOSIS: Small rectal polyp, diverticulosis PROCEDURE: Colonoscopy with snare polypectomy ANESTHESIA: MAC SURGEON: Abbe Godwin M.D. SPECIMENS: None ENDOSCOPIC PROCEDURE: The patient was placed on the endoscopy table in the left decubitus position. The Olympus colonoscope was inserted into the anus and passed under direct visualization to the base of the cecum. The appendiceal or ifice was visualized. From that point the scope was slowly withdrawn inspecting all surfaces carefully. There were no neoplastic inflammatory or polypoid lesions throughout the cecum, ascending, transverse, descending, and sigmoid colon. The transverse colon where the abnormality was recently identified a barium enema was very carefully examined and there were no abnormalities noted. The prep was excellent. In the rectum there was a small polyp that was removed using the snare with cautery technique. The remainder the rectum was normal. There was mild left-sided diverticulosis. At the completion of the case the small rectal polyp was not seen in the canister. Digital rectal examination was normal. The patient was taken to the recovery room in stable condition per anesthesia guidelines. RECOMMENDATIONS: Resume diet. No abnormality despite recent abnormal CAT scan and barium enema in the distal transverse colon region. Recommend follow-up colonoscopy 3-5 years given the patient's personal history of polyps.
[2021-04-29] MEDS ORDERED: IV FLUID CONTINUATION 600 ML IV ONE (09:26)
[2021-04-29 09:47] VITALS: BP 139/62; PULSE 51; RESP 16
== END 2021-04-29 10:20 | disposition home or self-care (01) ==
LOC: ORWHC2ENDO 08:00
PROVIDERS: ATTEND Surgery
DX: K62.1 Rectal polyp (principal); K57.30 Diverticulosis of large intestine without perforation or abscess without bleeding; R94.8 Abnormal results of function studies of other organs and systems; Z86.010 Personal history of colon polyps; K21.9 Gastro-esophageal reflux disease without esophagitis; H91.90 Unspecified hearing loss, unspecified ear; I10 Essential (primary) hypertension; N28.9 Disorder of kidney and ureter, unspecified; E46 Unspecified protein-calorie malnutrition; K85.90 Acute pancreatitis without necrosis or infection, unspecified; Z90.49 Acquired absence of other specified parts of digestive tract; Z95.820 Peripheral vascular angioplasty status with implants and grafts; Z98.890 Other specified postprocedural states; Z87.891 Personal history of nicotine dependence; Z82.49 Family history of ischemic heart disease and other diseases of the circulatory system; Z80.0 Family history of malignant neoplasm of digestive organs; Z83.6 Family history of other diseases of the respiratory system; Z79.82 Long term (current) use of aspirin; Z79.899 Other long term (current) drug therapy; Z88.8 Allergy status to other drugs, medicaments and biological substances
CPT/HCPCS: 45385; J2704

== ENCOUNTER 2021-07-18 17:55 | Inpatient (IN) | payer MEDICARE ==
[2021-07-18 18:42] LABS: Glucose,Whole Blood 103 mg/dL (75-99)
[2021-07-18] MEDS ORDERED: SODIUM CHLORIDE 0.9% 1,000 ML IV STA (19:27)
--- NOTE | 2021-07-18 19:55 | ED ---
General Adult HPI - General Chief complaint: Weakness Stated complaint: accidental medication overdose Time Seen by Provider: 07/18/21 19:24 Source: patient, family, RN notes reviewed, old records reviewed Mode of arrival: wheelchair - History of Present Illness Initial comments: I evaluated the patient and he was placed in a room. Patient is a 75 her old male who is brought in by family for concern for altered mental status. Patient is slurring his speech. Last known well was yesterday or the day before. Patient lives alone. Is a history of peritoneal dialysis, kidney disease, recently diagnosed shingles on the Larissa Hernandez who presents emergency Department for the above complaint. Patient currently has no acute complaints. He does state that he believes his speech does seem slurred. He denies any drug use. He was prescribed lidocaine patches and initially thought that appointment to lidocaine patches may have caused his symptoms. There were applied over the shingles infection which is located over his right anterior abdomen. Patient voices no other acute complaints at this time. Family members state that is largely dependent and has no other concerns other than the slurring of speech. They thought that maybe the lidocaine patches may have played a role. He denies any fevers, chills, abdominal pain, chest pain, shortness of breath. Denies any cough, sick contacts. Denies any headache, weakness, numbness. Denies any new blurry vision. - Related Data Home Medications Medication Instructions Recorded Confirmed Atorvastatin [Lipitor] 80 mg PO HS 01/12/19 07/18/21 Calcium Acetate [PhosLo] 667 mg PO AC-TID 08/28/20 07/18/21 Aspirin 81 mg PO HS 04/18/21 07/18/21 Famotidine [Pepcid] 20 mg PO DAILY 04/18/21 07/18/21 Midodrine HCl 5 mg PO BID PRN 04/18/21 07/18/21 Potassium Chloride 10 meq PO DAILY 04/18/21 07/18/21 dronabinoL [Marinol] 1 tab PO DIRECTED 04/18/21 07/18/21 Sucralfate [Carafate] 1 gm PO DAILY 04/25/21 07/18/21 Heparin (Unknown Strength) 1 dose IV HS 07/18/21 07/18/21 Lidocaine [Aspercreme Patch] 1 patch TOPICAL DAILY 07/18/21 07/18/21 amLODIPine [Norvasc] 5 mg PO BID 07/18/21 07/18/21 valACYclovir HCL [Valtrex] 1,000 mg PO TID 07/18/21 07/18/21 Allergies Allergy/AdvReac Type Severity Reaction Status Date / Time heparin Allergy Severe HIT/LARRY-see Verified 07/18/21 21:48 comment cyclobenzaprine Allergy Rash/Hives Verified 07/18/21 21:48 [facility] Review of Systems ROS Statement: Those systems with pertinent positive or pertinent negative responses have been documented in the HPI. Review of Systems: CONST: Denies fever EYES: Denies blurry vision ENT: Denies nasal congestion C/V: Denies Chest pain RESP: Denies shortness of breath GI: Denies abdominal pain : Denies dysuria SKIN: Denies rash. MSK: Denies joint pain. NEURO: Endorses slurred speech for at least one day. ROS Other: All systems not noted in ROS Statement are negative. Past Medical History Past Medical History: GERD/Reflux, Hearing Disorder / Deafness, Hypertension, Renal Disease Additional Past Medical History / Comment(s): AAA. Peritoneal dialysis port daily. Pancreatitis 12/2020. Colon polyps. Wgt loss 32# est in past several months. History of Any Multi-Drug Resistant Organisms: None Reported Past Surgical History: Cholecystectomy, Hernia Repair, Orthopedic Surgery Additional Past Surgical History / Comment(s): AAA stent placement, bilat inguinal hernia repair, peritoneal dialysis placement. ORIF Rt hand w/ pins. EGD, Colonoscopy. Past Anesthesia/Blood Transfusion Reactions: No Reported Reaction Past Psychological History: No Psychological Hx Reported Smoking Status: Former smoker Past Alcohol Use History: None Reported Past Drug Use History: None Reported - Past Family History Sister(s) Family Medical History: Cancer, Myocardial Infarction ([place]) Additional Family Medical History / Comment(s): esophageal ca Brother(s) Family Medical History: Pneumonia General Exam - General Exam Comments Initial Comments: General: Appears in no acute distress. HEAD: Normal with no signs of head trauma. EYES: PERRLA, EOMI, conjunctiva normal, no discharge. Pupils are 3 mm bilater ally. ENT: Hearing grossly intact, normal oropharynx. RESPIRATORY: Clear breath sounds bilaterally. No wheezes, rales, or rhonchi. C/V: Regular rate and rhythm. S1 and S2 auscultated, no edema, peripheral pulses 2+ and intact throughout ABD: Abd is soft, nontender, nondistended EXT: Normal range of motion, no obvious deformity SKIN: Shingles rash over right abdomen. NEURO: Alert and oriented 4. Cranial nerves II-12 are intact. No focal sensory strength deficits. NIH stroke scale is 1 for dysarthria. GCS is 15. Course Vital Signs 07/18/21 07/18/21 07/18/21 18:29 19:43 20:38 Temperature 98.3 F Pulse Rate 66 62 67 Respiratory 20 16 16 Rate Blood Pressure 177/81 188/85 164/77 O2 Sat by Pulse 96 97 96 Oximetry 07/18/21 07/18/21 21:23 22:55 Temperature Pulse Rate 66 64 Respiratory 16 16 Rate Blood Pressure 170/81 123/60 O2 Sat by Pulse 95 95 Oximetry Medical Decision Making - Medical Decision Making Based on the patient's presentation and physical exam, patient is presenting with some altered mental status with acute dysarthria. Neurological exam is otherwise unremarkable. He was concerned for possible stroke, however last known well was at best yesterday, but largely unknown per family members. Therefore stroke pager will not be activated at this time. He is not a TPA candidate. We will obtain CT as well as CT angiogram of the head with a toxicological workup and altered mental status workup. He was in agreement this plan. He'll be connected to continuous cardiac monitoring while he is here in the department. Cardiac workup will also be obtained including EKG, troponin. Patient's EKG shows no acute changes and no signs of acute ischemia.Patient's laboratory studies were remarkable for a macrocytic anemia with a hemoglobin of 12. Patient is a mild hyponatremia of 126 and hypochloremia of 86. Patient has an elevated BUN/creatinine in the setting of ESRD on peritoneal dialysis. Patient is a low total albumin of 3.4. Tox workup is negative for salicylates, Tylenol, alcohol. Patient's CT imaging revealed no acute intracranial process. Chest x-ray revealed no acute cardiopulmonary disease. I spoke the patient's family as well as the patient regarding his current symptoms. He still has an NIH stroke scale of 1 for dysarthria. He will be given 325mg of aspirin. I do believe it is best for him to be admitted to the hospital for neurology evaluation tomorrow. They were in agreement with this plan. As the patient did received contrast, we will consult nephrology, Dr. Jung, to evaluate the patient tomorrow for peritoneal dialysis. There were in agreement this plan. Patient's vital signs have remained stable throughout his stay in the emergency department. I consulted neurology, Dr. Cuenca, to evaluate the patient tomorrow. I spoke with the admitting physician, Dr. Starr, who accepted the patient. Patient was therefore admitted to a telemetry bed in serious condition. - Lab Data Result diagrams: 07/18/21 19:44 07/18/21 19:44 Lab Results 07/18/21 07/18/21 07/18/21 Range/Units 18:40 19:44 19:44 WBC 6.7 (3.8-10.6) k/uL RBC 3.40 L (4.30-5.90) m/uL Hgb 12.0 L (13.0-17.5) gm/dL Hct 35.2 L (39.0-53.0) % MCV 103.5 H (80.0-100.0) fL MCH 35.2 H (25.0-35.0) pg MCHC 34.0 (31.0-37.0) g/dL RDW 15.3 (11.5-15.5) % Plt Count 204 (150-450) k/uL MPV 7.5 Neutrophils % 64 % Lymphocytes % 22 % Monocytes % 8 % Eosinophils % 2 % Basophils % 1 % Neutrophils # 4.2 (1.3-7.7) k/uL Lymphocytes # 1.5 (1.0-4.8) k/uL Monocytes # 0.5 (0-1.0) k/uL Eosinophils # 0.1 (0-0.7) k/uL Basophils # 0.1 (0-0.2) k/uL Macrocytosis Moderate PT 10.9 (9.0-12.0) sec INR 1.0 (<1.2) Sodium (137-145) mmol/L Potassium (3.5-5.1) mmol/L Chloride (98-107) mmol/L Carbon Dioxide (22-30) mmol/L Anion Gap mmol/L BUN (9-20) mg/dL Creatinine (0.66-1.25) mg/dL Est GFR (CKD-EPI)AfAm (>60 ml/min/1.73 sqM) Est GFR (CKD-EPI)NonAf (>60 ml/min/1.73 sqM) Glucose (74-99) mg/dL POC Glucose (mg/dL) 103 H (75-99) mg/dL POC [employer] Analyst ID [facility] Plasma Lactic Acid Victor Hugo (0.7-2.0) mmol/L Calcium (8.4-10.2) mg/dL Total Bilirubin (0.2-1.3) mg/dL AST (17-59) U/L ALT (4-49) U/L Alkaline Phosphatase (38-126) U/L Troponin I (0.000-0.034) ng/mL Total Protein (6.3-8.2) g/dL Albumin (3.5-5.0) g/dL Lipase (23-300) U/L Salicylates mg/dL Acetaminophen ug/mL Serum Alcohol mg/dL 07/18/21 07/18/21 07/18/21 Range/Units 19:44 19:44 19:44 WBC (3.8-10.6) k/uL RBC (4.30-5.90) m/uL Hgb (13.0-17.5) gm/dL Hct (39.0-53.0) % MCV (80.0-100.0) fL MCH (25.0-35.0) pg MCHC (31.0-37.0) g/dL RDW (11.5-15.5) % Plt Count (150-450) k/uL MPV Neutrophils % % Lymphocytes % % Monocytes % % Eosinophils % % Basophils % % Neutrophils # (1.3-7.7) k/uL Lymphocytes # (1.0-4.8) k/uL Monocytes # (0-1.0) k/uL Eosinophils # (0-0.7) k/uL Basophils # (0-0.2) k/uL Macrocytosis PT (9.0-12.0) sec INR (<1.2) Sodium 126 L (137-145) mmol/L Potassium 3.7 (3.5-5.1) mmol/L Chloride 86 L (98-107) mmol/L Carbon Dioxide 23 (22-30) mmol/L Anion Gap 17 mmol/L BUN 48 H (9-20) mg/dL Creatinine 9.34 H* (0.66-1.25) mg/dL Est GFR (CKD-EPI)AfAm 6 (>60 ml/min/1.73 sqM) Est GFR (CKD-EPI)NonAf 5 (>60 ml/min/1.73 sqM) Glucose 86 (74-99) mg/dL POC Glucose (mg/dL) (75-99) mg/dL POC [employer] Analyst ID Plasma Lactic Acid Victor Hugo 1.3 (0.7-2.0) mmol/L Calcium 9.1 (8.4-10.2) mg/dL Total Bilirubin 0.1 L (0.2-1.3) mg/dL AST 22 (17-59) U/L ALT 16 (4-49) U/L Alkaline Phosphatase 78 (38-126) U/L Troponin I 0.027 (0.000-0.034) ng/mL Total Protein 5.7 L (6.3-8.2) g/dL Albumin 3.4 L (3.5-5.0) g/dL Lipase 85 (23-300) U/L Salicylates <1.0 mg/dL Acetaminophen <10.0 ug/mL Serum Alcohol <10 mg/dL - EKG Data -: EKG Interpreted by Me EKG Comments: 12-lead Electrocardiogram Interpretation Note EKG was reviewed and interpreted by myself. 12-lead ECG performed at 1858 is interpreted by me as revealing normal sinus rhythm at a rate of 63 beats per minute. Left axis deviation. SC interval is 244 ms, QR adventist is a 1926 ms, QTc is 470 ms. Patient has first-degree AV block.. Patient is a right bundle branch block with T-wave inversions in lead V2 and V3 which is chronic. This evening prior EKGs from December 2020.. R wave progression across the precordium was satisfactory. By my interpretation this EKG is non-diagnostic for acute ischemia. A chest chronic EKG changes. Disposition Clinical Impression: CVA (cerebral vascular accident), Dysarthria, Shingles, Peritoneal dialysis catheter in place, ESRD (end stage renal disease) Disposition: ADMITTED IP TO THIS HOSP Condition: Serious
[2021-07-18 19:56] LABS: Basophils # (A) 0.1 k/uL (0-0.2); Basophils % (A) 1 %; Eosinophils # (A) 0.1 k/uL (0-0.7); Eosinophils % (A) 2 %; HCT 35.2 % (39.0-53.0); Lymphocytes # (A) 1.5 k/uL (1.0-4.8); Lymphocytes % (A) 22 %; MCH 35.2 pg (25.0-35.0); MCV 103.5 fL (80.0-100.0); Macrocytosis Moderate; Mean Platelet Volume 7.5; Monocytes # (A) 0.5 k/uL (0-1.0); Monocytes % (A) 8 %; Neutrophils # (A) 4.2 k/uL (1.3-7.7); Neutrophils % (A) 64 %; Platelet Count 204 k/uL (150-450); RDW 15.3 % (11.5-15.5); WBC 6.7 k/uL (3.8-10.6)
[2021-07-18 20:02] LABS: Prothrombin Time 10.9 sec (9.0-12.0)
--- NOTE | 2021-07-18 20:06 | XR ---
EXAMINATION TYPE: XR chest 1V portable DATE OF EXAM: 07/18/2021 COMPARISON: NONE HISTORY: Difficulty breathing TECHNIQUE: Single view FINDINGS: There is no heart failure nor confluent pneumonic infiltrate. Costophrenic angles are clear . There are chest leads. There are no hilar masses. IMPRESSION: No active cardiopulmonary disease. Normal heart. There is clearing of the pleural fluid a nd infiltrate left lower lobe compared to old exam.
[2021-07-18 20:08] LABS: ALT 16 U/L (4-49); AST 22 U/L (17-59); Acetaminophen <10.0 ug/mL; African American GFR (CKD) 6 (>60 ml/min/1.73 sqM); Albumin 3.4 g/dL (3.5-5.0); Alcohol <10 mg/dL; Alkaline Phosphatase 78 U/L (38-126); Anion Gap 17 mmol/L; Blood Urea Nitrogen 48 mg/dL (9-20); Calcium 9.1 mg/dL (8.4-10.2); Carbon Dioxide 23 mmol/L (22-30); Chloride 86 mmol/L (98-107); Glucose 86 mg/dL (74-99); Lipase 85 U/L (23-300); Non-African American GFR(CKD) 5 (>60 ml/min/1.73 sqM); Potassium 3.7 mmol/L (3.5-5.1); Salicylate <1.0 mg/dL; Sodium 126 mmol/L (137-145); Total Bilirubin 0.1 mg/dL (0.2-1.3); Total Protein 5.7 g/dL (6.3-8.2)
--- NOTE | 2021-07-18 20:44 | CT ---
EXAMINATION TYPE: CT brain wo con DATE OF EXAM: 07/18/2021 COMPARISON: 01/21/2021 HISTORY: AMS CT DLP: 1071.8 mGycm Automated exposure control for dose reduction was used. There is cerebral cortical atrophy. There is no mass effect nor midline shift. There is no sign of in tracranial hemorrhage. Calvarium is intact. Skull base is intact. IMPRESSION: Cerebral atrophy. No change compared to old exam. No acute abnormality.
--- NOTE | 2021-07-18 21:07 | CT ---
EXAMINATION TYPE: CT angio head neck DATE OF EXAM: 07/18/2021 COMPARISON: None HISTORY: AMS, neuro deficits CT DLP: 327.3 mGycm Automated exposure control for dose reduction was used. CONTRAST: Performed with IV Contrast, patient injected with 65 mL of Isovue 370. Images obtained from the aortic arch to the vertex of the brain with IV contrast. There are 3-D post processed images. Thoracic aorta is atheromatous. There is normal branching pattern of the great vessels on the aortic arch. There is arterial flow in both subclavian arteries. There is arterial flow in both vertebral ar teries. There is arterial flow in the common internal and external carotid arteries bilaterally. Ther e is bilateral mild plaque formation and estimated luminal narrowing of 35% at the proximal right int ernal carotid artery and 15% proximal left internal carotid artery. There is arterial flow in the vertebrobasilar artery system. There is no evidence of carotid or verte bral artery aneurysm or dissection. There is arterial flow in the anterior middle and posterior cerebral arteries. I see no evidence of i ntracranial aneurysm or neovascularity. There is no mass effect. There is no evidence of arterial marcie nosis. There is normal enhancement of the venous sinuses. IMPRESSION: Mild plaque formation at the carotid artery bifurcations without evidence of hemodynamic stenosis. No significant intracranial angiographic abnormality.
[2021-07-18] MEDS ORDERED: NALOXONE 0.4 MG/ML 1 ML VIAL IV PRN (21:52)
[2021-07-18] MEDS ORDERED: ASPIRIN 325 MG TAB PO STA (21:58)
--- NOTE | 2021-07-19 09:18 | P.HPIM ---
History of Present Illness H&P Date: 07/19/21 Chief Complaint: Dysarthria and confusion This is a 75-year-old male patient with known peritoneal dialysis. He has no know I partner while I'm taking care of him myself on several occasions. He lives alone as his is in hospice at [facility]. Child has significant dysarthria and is on a tall this time. History was taken from the chart. Apparently he was recently seen in the office diagnosed with shingles. Given several lidocaine patches. The family brought him and after they were unable to get ahold of him. He was found down on unintelligibly speaking. Currently there is unable to determine if he has any complaints at this time. CT brain was negative except for atrophy, CT angiogram showed no pulmonary embolism. Review of Systems ROS unobtainable: due to mental status (due to dysarthria) Past Medical History Past Medical History: GERD/Reflux, Hearing Disorder / Deafness, Hypertension, Renal Disease Additional Past Medical History / Comment(s): AAA. Peritoneal dialysis port daily. Pancreatitis 12/2020. Colon polyps. Wgt loss 32# est in past several months. History of Any Multi-Drug Resistant Organisms: None Reported Past Surgical History: Cholecystectomy, Hernia Repair, Orthopedic Surgery Additional Past Surgical History / Comment(s): AAA stent placement, bilat inguinal hernia repair, peritoneal dialysis placement. ORIF Rt hand w/ pins. EGD, Colonoscopy. Past Anesthesia/Blood Transfusion Reactions: No Reported Reaction Past Psychological History: No Psychological Hx Reported Smoking Status: Former smoker Past Alcohol Use History: None Reported Past Drug Use History: None Reported - Past Family History Sister(s) Family Medical History: Cancer, Myocardial Infarction ([place]) Additional Family Medical History / Comment(s): esophageal ca Brother(s) Family Medical History: Pneumonia Medications and Allergies Home Medications Medication Instructions Recorded Confirmed Type Atorvastatin [Lipitor] 80 mg PO HS 01/12/19 07/18/21 History Calcium Acetate [PhosLo] 667 mg PO AC-TID 08/28/20 07/18/21 History Aspirin 81 mg PO HS 04/18/21 07/18/21 History Famotidine [Pepcid] 20 mg PO DAILY 04/18/21 07/18/21 History Midodrine HCl 5 mg PO BID PRN 04/18/21 07/18/21 History Potassium Chloride 10 meq PO DAILY 04/18/21 07/18/21 History dronabinoL [Marinol] 1 tab PO DIRECTED 04/18/21 07/18/21 History Sucralfate [Carafate] 1 gm PO DAILY 04/25/21 07/18/21 History Heparin (Unknown Strength) 1 dose IV HS 07/18/21 07/18/21 History Lidocaine [Aspercreme Patch] 1 patch TOPICAL DAILY 07/18/21 07/18/21 History amLODIPine [Norvasc] 5 mg PO BID 07/18/21 07/18/21 History valACYclovir HCL [Valtrex] 1,000 mg PO TID 07/18/21 07/18/21 History Allergies Allergy/AdvReac Type Severity Reaction Status Date / Time heparin Allergy Severe HIT/LARRY-see Verified 07/18/21 21:48 comment cyclobenzaprine Allergy Rash/Hives Verified 07/18/21 21:48 [From Flexeril] Physical Exam Vitals: Vital Signs Temp Pulse Resp BP Pulse Ox 07/19/21 06:50 65 16 158/85 96 07/19/21 03:30 62 18 185/81 96 07/18/21 22:55 64 16 123/60 95 07/18/21 21:23 66 16 170/81 95 07/18/21 20:38 67 16 164/77 96 07/18/21 19:43 62 16 188/85 97 07/18/21 18:29 98.3 F 66 20 177/81 96 Intake and Output 07/18/21 07/19/21 07/19/21 22:59 06:59 14:59 Other: Weight 53.388 kg GENERAL: Thin frail 75-year-old male in no acute distress. Speech is garbled and unintelligible HEAD: Atraumatic, normocephalic. EYES: Pupils equal round and reactive to light, extraocular movements intact, sclera anicteric, conjunctiva are normal. ENT:nares patent, oropharynx clear without exudates. Moist mucous membranes. NECK: Normal range of motion, supple without lymphadenopathy or JVD, no thyromegaly LUNGS: Breath sounds slightly coarse to auscultation bilaterally and equal. No wheezes rales or rhonchi. HEART: Regular rate and rhythm without murmurs, rubs or gallops.S1S2 Normal ABDOMEN: Soft, nontender, normoactive bowel sounds. No guarding, no rebound. No masses appreciated. Perineal dialysis catheters in place EXTREMITIES: Normal range of motion, no pitting or edema. No clubbing or cyanosis. NEUROLOGICAL: Cranial nerves II through XII grossly intact. Speech is unintelligible as previously described. Hand grasps strength seems normal at 5 out of 5 in the upper extremities. He freely moves his lower extremities this time. Gait was not tested at this time as he was sleeping and aroused for this exam. Sitters at bedside as he apparently was crawling on the floor earlier. PSYCH: Normal mood, normal affect. SKIN: Warm, Dry, normal turgor, no rashes or lesions noted. Results CBC & Chem 7: 07/18/21 19:44 07/18/21 19:44 Labs: Abnormal Lab Results - Last 24 Hours (Table) 07/18/21 07/18/21 07/18/21 Range/Units 18:40 19:44 19:44 RBC 3.40 L (4.30-5.90) m/uL Hgb 12.0 L (13.0-17.5) gm/dL Hct 35.2 L (39.0-53.0) % MCV 103.5 H (80.0-100.0) fL MCH 35.2 H (25.0-35.0) pg Sodium 126 L (137-145) mmol/L Chloride 86 L (98-107) mmol/L BUN 48 H (9-20) mg/dL Creatinine 9.34 H* (0.66-1.25) mg/dL POC Glucose (mg/dL) 103 H (75-99) mg/dL Total Bilirubin 0.1 L (0.2-1.3) mg/dL Total Protein 5.7 L (6.3-8.2) g/dL Albumin 3.4 L (3.5-5.0) g/dL CT scan - chest: report reviewed CT Scan - head: report reviewed Thrombosis Risk Factor Assmnt - DVT/VTE Prophylaxis DVT/VTE Prophylaxis: Contraindicated - See note (With negative CT brain, will wait on anticoagulation due to risk of conversion of hemorrhagic CVA for neurology) Assessment and Plan (1) Hyponatremia Current Visit: Yes Status: Acute Code(s): E87.1 - HYPO-OSMOLALITY AND HYPONATREMIA SNOMED Code(s): 47526136 (2) CVA (cerebral vascular accident) Current Visit: Yes Status: Acute Code(s): I63.9 - CEREBRAL INFARCTION, UNSPECIFIED SNOMED Code(s): 968373821 (3) Dysarthria Current Visit: Yes Status: Acute Code(s): R47.1 - DYSARTHRIA AND ANARTHRIA SNOMED Code(s): 0548666 (4) ESRD (end stage renal disease) Current Visit: Yes Status: Acute Code(s): N18.6 - END STAGE RENAL DISEASE SNOMED Code(s): 43004046 (5) Peritoneal dialysis catheter in place Current Visit: Yes Status: Acute Code(s): Z99.2 - DEPENDENCE ON RENAL DIALYSIS SNOMED Code(s): 033532339 (6) Shingles Current Visit: Yes Status: Acute Code(s): B02.9 - ZOSTER WITHOUT COMPLICA TIONS SNOMED Code(s): 2937031 (7) AAA (abdominal aortic aneurysm) Current Visit: No Status: Acute Code(s): I71.4 - ABDOMINAL AORTIC ANEURYSM, WITHOUT RUPTURE SNOMED Code(s): 609040492 (8) Anemia of renal disease Current Visit: No Status: Acute Priority: High Code(s): N18.9 - CHRONIC KIDNEY DISEASE, UNSPECIFIED; D63.1 - ANEMIA IN CHRONIC KIDNEY DISEASE SNOMED Code(s): 027912418 Plan: We'll repeat labs this morning, Weight on neurology consultation. Weight on nephrology consultation regarding his peroneal dialysis. MRI brain evaluate for suspected CVA he is having. 3 echo and carotid Doppler to evaluate for sources for the CVA. (Anti-coagulation to neurology sees him to avoid conversion to hemorrhagic CVA. Reevaluated next 24 hours.
[2021-07-19 09:26] LABS: Chol/HDL Ratio 3.86; LDL Cholesterol,Calculated 71.4 mg/dL (0.0-131.0); VLDL Calculation 31.6 mg/dL (5.00-40.00)
--- NOTE | 2021-07-19 10:16 | P.NPCON ---
History of Present Illness - Reason for Consult Consult date: 07/19/21 end stage renal disease - Chief Complaint Metabolic encephalopathy - History of Present Illness This is 75-year-old male who is on peritoneal dialysis came in to the emergency room brought in by relatives because of mental status changes Patient is unable to give any history. He does follow commands and cooperate and tries to speak. Recent rash suggestive of herpes zoster on the right T7 to 8 area, scabbed over and healing. He was on Acyclovir 1 g 3 times a day as per the medical records. Past history is significant for ESRD, bilateral renal artery stenting, renovascular disease. He started dialysis on 07/11/2020 on peritoneal dialysis. He is known with AAA stent basement, pancreatitis in December 2020. Recent weight loss No history of falls, seizures. No history of drug abuse or being on pain medications. He is not on any medication that could alter his normal status other than the acyclovir. No history of fever chills but patient unable to give any history Past Medical History Past Medical History: GERD/Reflux, Hearing Disorder / Deafness, Hypertension, Renal Disease Additional Past Medical History / Comment(s): AAA. Peritoneal dialysis port daily. Pancreatitis 12/2020. Colon polyps. Wgt loss 32# est in past several months. History of Any Multi-Drug Resistant Organisms: None Reported Past Surgical History: Cholecystectomy, Hernia Repair, Orthopedic Surgery Additional Past Surgical History / Comment(s): AAA stent placement, bilat inguinal hernia repair, peritoneal dialysis placement. ORIF Rt hand w/ pins. EGD, Colonoscopy. Past Anesthesia/Blood Transfusion Reactions: No Reported Reaction Past Psychological History: No Psychological Hx Reported Smoking Status: Former smoker Past Alcohol Use History: None Reported Past Drug Use History: None Reported - Past Family History Sister(s) Family Medical History: Cancer, Myocardial Infarction ([place]) Additional Family Medical History / Comment(s): esophageal ca Brother(s) Family Medical History: Pneumonia Medications and Allergies Home Medications Medication Instructions Recorded Confirmed Type Atorvastatin [Lipitor] 80 mg PO HS 01/12/19 07/18/21 History Calcium Acetate [PhosLo] 667 mg PO AC-TID 08/28/20 07/18/21 History Aspirin 81 mg PO HS 04/18/21 07/18/21 History Famotidine [Pepcid] 20 mg PO DAILY 04/18/21 07/18/21 History Midodrine HCl 5 mg PO BID PRN 04/18/21 07/18/21 History Potassium Chloride 10 meq PO DAILY 04/18/21 07/18/21 History Sucralfate [Carafate] 1 gm PO DAILY 04/25/21 07/18/21 History Heparin (Unknown Strength) 1 dose IV HS 07/18/21 07/18/21 History Lidocaine [Aspercreme Patch] 1 patch TOPICAL DAILY 07/18/21 07/18/21 History amLODIPine [Norvasc] 5 mg PO BID 07/18/21 07/18/21 History valACYclovir HCL [Valtrex] 1,000 mg PO TID 07/18/21 07/18/21 History dronabinoL [Marinol] 10 mg PO BID 07/19/21 07/19/21 History Allergies Allergy/AdvReac Type Severity Reaction Status Date / Time heparin Allergy Severe HIT/LARRY-see Verified 07/18/21 21:48 comment cyclobenzaprine Allergy Rash/Hives Verified 07/18/21 21:48 [facility] Physical Exam Vitals: Vital Signs Temp Pulse Resp BP Pulse Ox 07/19/21 06:50 65 16 158/85 96 07/19/21 03:30 62 18 185/81 96 07/18/21 22:55 64 16 123/60 95 07/18/21 21:23 66 16 170/81 95 07/18/21 20:38 67 16 164/77 96 07/18/21 19:43 62 16 188/85 97 07/18/21 18:29 98.3 F 66 20 177/81 96 Intake and Output 07/18/21 07/19/21 07/19/21 22:59 06:59 14:59 Other: Weight 53.388 kg On examination is awake alert and answers question and speaks but at times difficult to understand his speech He is moving all his extremities on command. He follows all commands. HEENT exam no JVP neck is supple no facial asymmetry pupils are equal Lungs are clear to auscultation good air entry bilaterally Heart sounds unremarkable for any murmur rub gallop Abdomen soft nontender, PD catheter site is clean Extremity exam was no edema There is no rash on his skin except for the healed zoster rash on the right T7 to 8 area. His not crossing the midline. Neurologically awake alert but unable to assess his orientation. He moves all extremities on command and seems to have equal strength. He has mild asterixis. Results - Lab Results Most recent lab results Calcium 9.1 mg/dL (8.4-10.2) 07/18/21 19:44 07/18/21 19:44 07/18/21 19:44 Assessment and Plan Assessment: Impression 1. Admitted with mental status changes likely from acyclovir. Computed tomography scan normal. No electrolyte abnormalities except for the mildly low sodium that should not cause his renal status changes 2. Recent history of herpes zoster on T7 and T8 area confined to that dermatome 3. 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 On dialysis since June 2020 on peritoneal dialysis 4. Hyponatremia secondary to excess fluid intake, sodium is 126 Recommendation 1. Because of the easy dialysis ability of acyclovir will proceed with 1 or 2 sessions of hemodialysis with a Tuan catheter in his groin. 2. Will dialyze him with his sodium off 1:30 so as not to increase is sodium too rapidly 3. At the end of dialysis will recheck his sodium. 4. If need be we'll dialyze him tomorrow again based on his mental status Thank you for this consultation and we'll continue to follow
[2021-07-19 12:33] LABS: Basophils # (A) 0.1 k/uL (0-0.2); Basophils % (A) 1 %; Eosinophils # (A) 0.1 k/uL (0-0.7); Eosinophils % (A) 1 %; HCT 36.1 % (39.0-53.0); HGB 12.2 gm/dL (13.0-17.5); Lymphocytes # (A) 1.5 k/uL (1.0-4.8); Lymphocytes % (A) 21 %; MCH 34.8 pg (25.0-35.0); MCHC 33.7 g/dL (31.0-37.0); MCV 103.5 fL (80.0-100.0); Macrocytosis Moderate; Mean Platelet Volume 7.6; Monocytes # (A) 0.3 k/uL (0-1.0); Monocytes % (A) 5 %; Neutrophils # (A) 4.8 k/uL (1.3-7.7); Neutrophils % (A) 69 %; Platelet Count 203 k/uL (150-450); RBC 3.49 m/uL (4.30-5.90); RDW 15.5 % (11.5-15.5); WBC 6.9 k/uL (3.8-10.6)
--- NOTE | 2021-07-19 12:57 | OP ---
OPERATIVE REPORT PREOPERATIVE DIAGNOSIS: Acute on chronic renal failure. PROCEDURE PERFORMED: Placement of dialysis catheter via right femoral approach. DESCRIPTION: This patient was seen in the emergency room. Right groin was prepped and draped in usual sterile manner and 1% lidocaine was infiltrated. The femoral vein was very small in caliber. Access was obtained, but we could not pass the guidewire. Then we prepped the left groin. Lidocaine 1% plain was infiltrated and ultrasound-guided micropuncture was introduced into the left femoral vein. Micropuncture guidewire was passed and a 4- Beninese dilator advanced on top of the guidewire. After that, we passed a regular guidewire without any resistance. Dilator was advanced on the top of the guidewire. Then dialysis catheter was advanced on top of the guidewire. The guidewire was removed. The catheter was flushed with heparin saline and hep-locked, secured with 3 nylon. Patient tolerated the procedure well. MMODL / IJN: [id number] /
--- NOTE | 2021-07-19 12:57 | CONS ---
CONSULTATION This is a 75 -year-old gentleman who came to the emergency room with confusion and patient has sepsis. The patient has history of chronic renal failure on peritoneal dialysis. I was consulted for urgent dialysis catheter placement. MEDICAL HISTORY: History of chronic renal failure. This is a patient who had a peritoneal dialysis catheter placed in the past. The patient was seen in the emergency room. Patient is disoriented and confused. Neck is supple. Trachea central. Chest is a clear. First and second sounds normal. Abdomen: Patient has a peritoneal dialysis, nontender. PLAN: Placement of the dialysis catheter. Risks and complications discussed. MMODL / IJN: [id number] /
[2021-07-19] MEDS ORDERED: valACYclovir HCL 1,000 MG TABLET PO SCH (13:00)
[2021-07-19 13:09] LABS: Albumin 3.1 g/dL (3.5-5.0); Calcium 8.6 mg/dL (8.4-10.2); Magnesium 1.9 mg/dL (1.6-2.3); Potassium 3.8 mmol/L (3.5-5.1); Total Bilirubin 0.2 mg/dL (0.2-1.3); Total Protein 5.5 g/dL (6.3-8.2)
[2021-07-19] MEDS ORDERED: LACOSAMIDE IV 100 MG in SODIUM CHLORIDE 0.9% 50 ML IVPB SCH (13:30)
[2021-07-19] MEDS ORDERED: ACYCLOVIR SODIUM 500 MG in SODIUM CHLORIDE 0.9% 100 ML IVPB SCH (14:00)
--- NOTE | 2021-07-19 14:00 | P.CNNES ---
History of Present Illness Consult date: 07/19/21 Requesting physician: Hossein Kong Reason for Consult: cva History of Present Illness: This is a 75-year-old gentleman with medical history of hypertension, end-stage renal disease on peritoneal dialysis, recent history of herpes zoster on T7 to T8 dermatome, pancreatitis who presented emergency department on 07/18/2021 for altered mental status and dysarthria. History was obtained from patient brother (Rocky) who is also accompanied by patient [id number]. Per his family members they stated the patient is awake alert oriented 3 at baseline but yesterday when they spoke with the patient's about 10:30 he's had a likely he was drunk. They had a friend come over who is in the medical field and the he check up on the patient and he notified family members that that he needed that to be taken to the emergency department. There were notified and the patient is altered and severely dysarthric. Per family members last normal was the day before presentation day think. Per family members they stated that the the patient was recently diagnosed with shingles over the right later/anterior side right abdomen from T7 to T8 and is on acyclovir about 8 days ago and was started on Acylovir. They denied that patient had any slurring the speech prior to yesterday, they denied that the patient had any focal weakness or facial weakness. But the he just really the slurred and altered. He doesn't have any history of seizure but they stated that they noticed that he's having some tremors. They don't think the patient had any recent fevers recently. Family the patient does not some alcohol, any use of illicit drug use. He had pancreatitis in the past due to medication effect. Of note the patient is usually alert oriented 3 and sometimes uses a walker if he feels generalized weakness but he is able to walk on his own. He has a normal conversation. Patient has been diagnosed with end-stage renal disease since about a year and he's been on by mouth thin dialysis for that the same duration is been on a daily basis. Family stated that he has not missed his peritoneal dialysis. Some of his home medication is Midodrine, 5 mg 1 tablet twice a day as needed, amlodipine, valacyclovir at thousand milligram 1 tablet 3 times a day, Lipitor 80 mg daily at bedtime, aspirin 81 mg daily Some of the work-up in the hospital consisted of: Initial vital signs: Blood pressure of 177/81, heart rate of 66, respiratory of 20, temperature of 98.3 for oral and pulse ox of 96% room air. CT of the head is reported as cerebral atrophy. No change compared to old exam. No acute abnormality. CT angiography of the head and neck was reported as mild plaque formation at the carotid artery bifurcation without evidence of hemodynamic stenosis. No significant intercranial and angiographic abnormality. EKG is reported as sinus rhythm with first-degree AV block with premature atrial complexes. Left axis deviation. The right bundle branch block. CBC with differential is the white blood cell was done twice is an within normal limits at 6.7 thousand and the repeat is 6.9. The MCV is 103.5, the hemoglobin is 12.0 which is slightly low otherwise platelet is normal The chemistry panel on presentation is sodium was 126 which is low, creatinine is a 9.34 and it's at elevated. Glucose of 103 which is not remarkable. AST of 22 ALT of 16. Calcium is 9.1 which is within normal limits Lipid panel is a triglyceride 158, cholesterol is 139, LDL is 71, and HDL 36. Lipase is 85 which is within normal limits. Urine drug screen is the serum alcohol was less than 10, acetaminophen is less than 10 and the sessile it is less than 1.0. The ED attending felt patient has a stroke with NIH stroke scale of 1 for dysa rthria. He give the patient the aspirin 325. As documented per the ED note that no IV TPA since she is outside the window. Per ED team, yesterday just had dysarthria and no other focal deficits. Past Medical History Past Medical History: GERD/Reflux, Hearing Disorder / Deafness, Hypertension, Renal Disease Additional Past Medical History / Comment(s): AAA. Peritoneal dialysis port daily. Pancreatitis 12/2020. Colon polyps. Wgt loss 32# est in past several months. History of Any Multi-Drug Resistant Organisms: None Reported Past Surgical History: Cholecystectomy, Hernia Repair, Orthopedic Surgery Additional Past Surgical History / Comment(s): AAA stent placement, bilat inguinal hernia repair, peritoneal dialysis placement. ORIF Rt hand w/ pins. EGD, Colonoscopy. Past Anesthesia/Blood Transfusion Reactions: No Reported Reaction Past Psychological History: No Psychological Hx Reported Smoking Status: Former smoker Past Alcohol Use History: None Reported Past Drug Use History: None Reported - Past Family History Sister(s) Family Medical History: Cancer, Myocardial Infarction ([place]) Additional Family Medical History / Comment(s): esophageal ca Brother(s) Family Medical History: Pneumonia Medications and Allergies Home Medications Medication Instructions Recorded Confirmed Type Atorvastatin [Lipitor] 80 mg PO HS 01/12/19 07/18/21 History Calcium Acetate [PhosLo] 667 mg PO AC-TID 08/28/20 07/18/21 History Aspirin 81 mg PO HS 04/18/21 07/18/21 History Famotidine [Pepcid] 20 mg PO DAILY 04/18/21 07/18/21 History Midodrine HCl 5 mg PO BID PRN 04/18/21 07/18/21 History Potassium Chloride 10 meq PO DAILY 04/18/21 07/18/21 History Sucralfate [Carafate] 1 gm PO DAILY 04/25/21 07/18/21 History Heparin (Unknown Strength) 1 dose IV HS 07/18/21 07/18/21 History Lidocaine [Aspercreme Patch] 1 patch TOPICAL DAILY 07/18/21 07/18/21 History amLODIPine [Norvasc] 5 mg PO BID 07/18/21 07/18/21 History valACYclovir HCL [Valtrex] 1,000 mg PO TID 07/18/21 07/18/21 History dronabinoL [Marinol] 10 mg PO BID 07/19/21 07/19/21 History Allergies Allergy/AdvReac Type Severity Reaction Status Date / Time heparin Allergy Severe HIT/LARRY-see Verified 07/18/21 21:48 comment cyclobenzaprine Allergy Rash/Hives Verified 07/18/21 21:48 [From Flexeril] Physical Examination - Vital Signs Vital Signs: Vital Signs Temp Pulse Resp BP Pulse Ox 07/19/21 11:35 62 18 159/75 97 07/19/21 06:50 65 16 158/85 96 07/19/21 03:30 62 18 185/81 96 07/18/21 22:55 64 16 123/60 95 07/18/21 21:23 66 16 170/81 95 07/18/21 20:38 67 16 164/77 96 07/18/21 19:43 62 16 188/85 97 07/18/21 18:29 98.3 F 66 20 177/81 96 Intake and Output 07/18/21 07/19/21 07/19/21 22:59 06:59 14:59 Other: Weight 53.388 kg GENERAL: The patient is lying in bed and seemed somewhat restless. CHEST: The heart rate is regular rate rhythm. No murmurs to auscultation. LUNG: Clear to auscultation bilaterally no wheezing noted throughout. Not labored breathing. ABDOMEN/GI: Bowel sounds present in all 4 quadrants. No tenderness to palpation throughout. NEUROLOGICAL: Higher mental function: The patient is awake, alert, oriented to self only. Upon asking him the current year he would tell me the year he was born. Patient is a ble to name watch, pen and glasses. Patient is following simple commands (closing eyes, sticking tongue out). There are instances where the patient was talking and that he wasn't making sense since it was hard to understand him. There does not appear to be any neglect from limited exam. Cranial nerves: The pupils are round, equal and reactive to light. EOM: He was tracking me on the right and left. Could not assess visual field. No facial weakness. Has significant dysarthria. Is very hard of hearing (old per family). Motor: Gait is deferred. The strength is able to raise bilateral uppers and lowers above gravity. Normal tone and bulk. Has repeated resting tremors of uppers. Cerebellum: Could not assess. Sensation: Could not assess. Reflexes (right/left): 1+ throughout. Plantars are mute bilaterally. Results - Laboratory Findings CBC and BMP: 07/19/21 11:49 07/19/21 11:49 Abnormal Lab Findings: Abnormal Labs 07/18/21 07/18/21 07/18/21 18:40 19:44 19:44 RBC 3.40 L Hgb 12.0 L Hct 35.2 L MCV 103.5 H MCH 35.2 H Sodium 126 L Chloride 86 L BUN 48 H Creatinine 9.34 H* POC Glucose (mg/dL) 103 H Total Bilirubin 0.1 L Total Protein 5.7 L Albumin 3.4 L Triglycerides HDL Cholesterol 07/18/21 19:44 RBC Hgb Hct MCV MCH Sodium Chloride BUN Creatinine POC Glucose (mg/dL) Total Bilirubin Total Protein Albumin Triglycerides 158.0 H HDL Cholesterol 36.0 L Assessment and Plan Assessment: This is a 75-year-old gentleman with recent diagnosis of shingles right T7 to T8 dermatome of abdomen that presents to ED on 07/19/2021 for altered mental status and acute dysarthria. NIH per ED team is 1 and they felt it seemed like stroke. No IV tpa since outside window. * Altered mental status with significant dysarthria (Per ED they were concerned about stroke but on presentation per ED team just had dysarthria). Rule out stroke. I feel there is a component of his encephalopathy due to toxic- metabolic (because of worsening kidney function). At same time because of recent history of shingles rule outs any underlying infection (herpes as cause especially since newly diagnosed. But seem atypical/low on differnital for encephalitis since no fever or leukocytosis). * Also has tremor that is new in onset: Possible due to metabolic (worsening kidney function). Rule out seizure. * Hyponatremia (126) and it is felt due to excess fluid intake * Herpes zoster over the right T7 to T8 dermatome and is on acyclovir * End-stage renal disease with bilateral renal stents on the peritoneal dialysis * Hypertension and seem to be elevated (per family it labile at home) * History of pancreatitis (per family due to medication use) Plan: * I restarted the patient home medication of aspirin 81 mg and Lipitor 80 mg daily at bedtime for secondary stroke prophylaxis. I'll avoid dual antiplatelet for now until lied getting MRI of the brain to see whether that he truly has a stroke. * MRI of the brain without contrast is ordered by the primary team is pending * 2-D echo, carotid duplex, TSH is ordered by the primary team is pending * PT, OT and DELIVERY STOCK CLERK are consulted. * Patient is on cardiac monitoring and that's to be continued. * Every 4 hours neuro checks * I ordered an urgent routine EEG. I started the patient preemptively on Vimpat 50mg IV bid and if no seizure on EEG or improvement in his condition will consider tapering the medication down the line. * I started the patient on Acyclovir 500 mg IV every 8 hours for now (seems unlikely encephalitis since no fever or leukocytosis). I consulted I.D. team and will defer modification to them and will defer getting lumbar puncture to I.D. team if needed. * I ordered vitamin B12 and folate level. * Nephrology is on board. * We'll defer the rest of medical management to primary team. Plan was discussed with the patient's nurse and his family members (Patient's brother and his [id number]) are at bedside. Thank you for the consultation. Wily Cuenca MD Neuro-Hospitalist. Time with Patient: Greater than 30
[2021-07-19] MEDS: ASPIRIN 81 MG PO SCH (14:44)
[2021-07-19] MEDS: LACOSAMIDE IV 50 MG in SODIUM CHLORIDE 0.9% 50 ML IVPB SCH ×2 (14:44→17:38)
--- NOTE | 2021-07-19 16:38 | ECHOF ---
Referral Reason:dysarthria MEASUREMENTS -------- HEIGHT: 167.6 cm WEIGHT: 53.1 kg BP: IVSd: 1.0 cm (0.6 - 1.1) LVIDd: 3.8 cm (3.9 - 5.3) LVPWd: 1.3 cm (0.6 - 1.1) EDV(Teich): 62 ml IVSs: 1.7 cm LVIDs: 2.9 cm LVPWs: 1.8 cm %IVS Thck: 78 % ESV(Teich): 32 ml EF(Teich): 49 % %FS: 24 % SV(Teich): 30 ml RVIDd: 2.7 cm (< 3.3) IVC: 13.23 mm Ao Diam: 4.2 cm (2.0 - 3.7) LA Diam: 3.0 cm (2.7 - 3.8) AV Cusp: 2.2 cm (1.5 - 2.6) EPSS: 0.8 cm MV E Dariusz: 0.43 m/s MV DecT: 222 ms MV Dec Valencia: 1.9 m/s MV A Dariusz: 0.65 m/s MV E/A Ratio: 0.66 MV PHT: 64 ms MR Vmax: 2.68 m/s MR maxP.68 mmHg AV Vmax: 0.89 m/s AV maxP.16 mmHg AR Vmax: 1.55 m/s AR maxP.63 mmHg AR PHT: 520 ms AR Dec Time: 1792 ms AR Dec Valencia: 0.9 m/s TR Vmax: 1.65 m/s TR maxP.89 mmHg RAP: 5.00 mmHg RVSP: 15.89 mmHg MV EF SLOPE: 119.73 mm/s (70 - 150) MV EXCURSION: 18.16 mm (> 18.000) FINDINGS -------- This was a technically good study. The left ventricular size is normal. There is mild concentric left ventricular hypertrophy. Overa ll left ventricular systolic function is low-normal with, an EF between 50 - 55 %. The right ventricle is normal in size. The left atrial size is normal. The right atrial size is normal. The aortic valve is trileaflet and appears structurally normal. There is mild aortic regurgitation. The mitral valve is normal. Mild mitral regurgitation is present. The tricuspid valve appears structurally normal. Mild tricuspid regurgitation present. Right vent ricular systolic pressure is normal at < 35 mmHg. There is no pulmonic regurgitation present. The aortic root is dilated measuring 4.2 cm. Normal inferior vena cava with normal inspiratory collapse consistent with estimated right atrial pre ssure of 5 mmHg. There is no pericardial effusion. CONCLUSIONS -------- 1. The left ventricular size is normal. 2. There is mild concentric left ventricular hypertrophy. 3. Overall left ventricular systolic function is low-normal with, an EF between 50 - 55 %. 4. There is mild aortic regurgitation. 5. Mild mitral regurgitation is present. 6. Mild tricuspid regurgitation present. 7. The aortic root is dilated measuring 4.2 cm 8. There is no pericardial effusion. SLUBBER MACHINE OPERATOR: Marilee Reyes RDCS
[2021-07-19] MEDS: SODIUM CHLORIDE 0.9% IVPB SCH (18:52)
[2021-07-19] MEDS: ACYCLOVIR SODIUM IVPB SCH (18:52)
--- NOTE | 2021-07-19 21:43 | P.CONS ---
History of Present Illness - Reason for Consult Consult date: 07/19/21 shingles and encephalopathy Requesting physician: Wily Cuenca - Chief Complaint mental status changes x 1 day - History of Present Illness History of present illness : Patient is 75-year-old male with a past medical history significant for end-stage renal disease on hemodialysis in this patient who was recently diagnosed in the outpatient setting with shingles i nvolving the right side of his trunk and was about a week ago for the patient given 3 doses of medication antibiotic for the pain control patient apparently was brought into the hospital for mental status changes patient was noticed to have some slurred speech no focal weakness patient was awake but not a good historian did not provide any history most information has been provided by family at the bedside no clear history of any vomiting however the patient has been complaining of his head been feeling full no diarrhea has been reported no worsening rash on the right side of the chest or any diarrhea on presentation to the hospital the patient was afebrile patient did have a normal white count with no lymphopenia INR was normal did have elevated BUN and creatinine liver exams are normal patient did have a chest x-ray no active cardiopulmonary disease CT of the brain cerebral atrophy no change overall exam no acute abnormality patient was evaluated by neurology he was started on acyclovir 400 every 8 hour and he was consulted concern for possible encephalitis related to varicella and further management Review of system: Positive point has been mentioned in HPI complete review could not be obtained because of underlying mental status Past medical history : Reviewed, documented below Past surgical history : Reviewed, documented below Social history: Reviewed, documented below Medications: Reviewed, as documented below GENERAL DESCRIPTION: Elderly male lying in bed, no distress. No tachypnea or accessory muscle of respiration use. HEENT: Shows Pallor , no scleral icterus. Oral mucous membrane is dry. NECK: Trachea central, no thyromegaly. LUNGS: Unlabored breathing. Clear to auscultation anteriorly. No wheeze or crackle. HEART: S1, S2, regular rate and rhythm. ABDOMEN: Soft, no tenderness , guarding or rigidity EXTREMITIES: No edema of feet. SKIN: No rash, no masses palpable. NEUROLOGICAL: The patient is awake, alert, pleasantly confused orientation could not determine no neck rigidity LABS AND RADIOLOGY: Reviewed results see below Assessment : Patient presented to hospital with mental status changes in this patient who did have a rash involving the T9 dermatome with recent treated with medication however not sure about what the patient has received not present to hospital with mental status changes of fullness of the head but no fever underlying varicella-zoster encephalitis not entirely excluded Plan: 1-we will obtain anesthesia consult for LP CSF will be sent for cell count differential glucose protein VZV and HSV PCR 2-acyclovir dose will be adjusted to the kidney function We will follow on clinical condition and cultures to further adjust medication if needed Thank you for this consultation we will follow the patient along with you Past Medical History Past Medical History: GERD/Reflux, Hearing Disorder / Deafness, Hypertension, Renal Disease Additional Past Medical History / Comment(s): AAA. Peritoneal dialysis port daily. Pancreatitis 12/2020. Colon polyps. Wgt loss 32# est in past several months. History of Any Multi-Drug Resistant Organisms: None Reported Past Surgical History: Cholecystectomy, Hernia Repair, Orthopedic Surgery Additional Past Surgical History / Comment(s): AAA stent placement, bilat inguinal hernia repair, peritoneal dialysis placement. ORIF Rt hand w/ pins. EGD, Colonoscopy. Past Anesthesia/Blood Transfusion Reactions: No Reported Reaction Past Psychological History: No Psychological Hx Reported Smoking Status: Former smoker Past Alcohol Use History: None Reported Past Drug Use History: None Reported - Past Family History Sister(s) Family Medical History: Cancer, Myocardial Infarction (OR) Additional Family Medical History / Comment(s): esophageal ca Brother(s) Family Medical History: Pneumonia Medications and Allergies Home Medications Medication Instructions Recorded Confirmed Type Atorvastatin [Lipitor] 80 mg PO HS 01/12/19 07/18/21 History Calcium Acetate [PhosLo] 667 mg PO AC-TID 08/28/20 07/18/21 History Aspirin 81 mg PO HS 04/18/21 07/18/21 History Famotidine [Pepcid] 20 mg PO DAILY 04/18/21 07/18/21 History Midodrine HCl 5 mg PO BID PRN 04/18/21 07/18/21 History Potassium Chloride 10 meq PO DAILY 04/18/21 07/18/21 History Sucralfate [Carafate] 1 gm PO DAILY 04/25/21 07/18/21 History Heparin (Unknown Strength) 1 dose IV HS 07/18/21 07/18/21 History Lidocaine [Aspercreme Patch] 1 patch TOPICAL DAILY 07/18/21 07/18/21 History amLODIPine [Norvasc] 5 mg PO BID 07/18/21 07/18/21 History valACYclovir HCL [Valtrex] 1,000 mg PO TID 07/18/21 07/18/21 History dronabinoL [Marinol] 10 mg PO BID 07/19/21 07/19/21 History Allergies Allergy/AdvReac Type Severity Reaction Status Date / Time heparin Allergy Severe HIT/LARRY-see Verified 07/18/21 21:48 comment cyclobenzaprine Allergy Rash/Hives Verified 07/18/21 21:48 [From Flexeril] Physical Exam Vitals: Vital Signs Temp Pulse Resp BP Pulse Ox 07/19/21 11:35 62 18 159/75 97 07/19/21 06:50 65 16 158/85 96 07/19/21 03:30 62 18 185/81 96 07/18/21 22:55 64 16 123/60 95 07/18/21 21:23 66 16 170/81 95 07/18/21 20:38 67 16 164/77 96 07/18/21 19:43 62 16 188/85 97 07/18/21 18:29 98.3 F 66 20 177/81 96 Intake and Output 07/18/21 07/19/21 07/19/21 22:59 06:59 14:59 Other: Weight 53.388 kg Results CBC & Chem 7: 07/19/21 11:49 07/19/21 11:49 Labs: Abnormal Lab Results - Last 24 Hours (Table) 07/18/21 07/18/21 07/18/21 Range/Units 18:40 19:44 19:44 RBC 3.40 L (4.30-5.90) m/uL Hgb 12.0 L (13.0-17.5) gm/dL Hct 35.2 L (39.0-53.0) % MCV 103.5 H (80.0-100.0) fL MCH 35.2 H (25.0-35.0) pg Sodium 126 L (137-145) mmol/L Chloride 86 L (98-107) mmol/L Carbon Dioxide (22-30) mmol/L BUN 48 H (9-20) mg/dL Creatinine 9.34 H* (0.66-1.25) mg/dL POC Glucose (mg/dL) 103 H (75-99) mg/dL Total Bilirubin 0.1 L (0.2-1.3) mg/dL Total Protein 5.7 L (6.3-8.2) g/dL Albumin 3.4 L (3.5-5.0) g/dL Triglycerides (0.0-149.0) mg/dL HDL Cholesterol (40.0-60.0) mg/dL 07/18/21 07/19/21 07/19/21 Range/Units 19:44 11:49 11:49 RBC 3.49 L (4.30-5.90) m/uL Hgb 12.2 L (13.0-17.5) gm/dL Hct 36.1 L (39.0-53.0) % MCV 103.5 H (80.0-100.0) fL MCH (25.0-35.0) pg Sodium 127 L (137-145) mmol/L Chloride 90 L (98-107) mmol/L Carbon Dioxide 19 L (22-30) mmol/L BUN 61 H (9-20) mg/dL Creatinine 9.93 H* (0.66-1.25) mg/dL POC Glucose (mg/dL) (75-99) mg/dL Total Bilirubin (0.2-1.3) mg/dL Total Protein 5.5 L (6.3-8.2) g/dL Albumin 3.1 L (3.5-5.0) g/dL Triglycerides 158.0 H (0.0-149.0) mg/dL HDL Cholesterol 36.0 L (40.0-60.0) mg/dL
--- NOTE | 2021-07-19 21:43 | US ---
EXAMINATION TYPE: US carotid duplex BILAT DATE OF EXAM: 07/19/2021 COMPARISON: NONE CLINICAL HISTORY: dysarthria. CVA. confusion EXAM MEASUREMENTS: RIGHT: Peak Systolic Velocity (PSV) cm/sec ----- Right CCA: 66.2 ----- Right ICA: 83.4 ----- Right ECA: 77.6 ICA/CCA ratio: 1.3 RIGHT: End Diastole cm/sec ----- Right CCA: 8.6 ----- Right ICA: 17.5 ----- Right ECA: 6.0 LEFT: Peak Systolic Velocity (PSV) cm/sec ----- Left CCA: 63.6 ----- Left ICA: 68.8 ----- Left ECA: 51.4 ICA/CCA ratio: 1.1 LEFT: End Diastole cm/sec ----- Left CCA: 8.6 ----- Left ICA: 15.6 ----- Left ECA: 0.0 VERTEBRALS (direction of flow): Right Vertebral: Antegrade Left Vertebral: Antegrade Rhythm: Normal Mild to moderate plaque bilateral bifurcations. No evidence of elevated velocities IMPRESSION: [id number] plaque at the carotid bifurcations with less than 50% stenosis of the p roximal ICAs. NASCET criteria was used in interpretation of this exam? Criteria for Assigning % of Stenosis / Diameter reduction (Estimation based on the indirect measurements of the internal carotid artery velocities (ICA PSV). 1. Normal (no stenosis)=ICA PSV < 125 cm/s: ratio < 2.0: ICA EDV<40 cm/s. 2. Less than 50% stenosis=ICA PSV < 125 cm/s: ratio < 2.0: ICA EDV<40 cm/s. 3. 50 to 69% stenosis=ICA PSV of 125 to 230 cm/s: ration 2.0 ? 4.0: ICA EDV 40-100 cm/s. 4. Greater than 70% stenosis to near occlusion= ICA PSV > 230 cm/s: ratio > 4.0: ICA EDV > 100 cm/s. 5. Near occlusion= ICA PSV velocities may be low or undetectable: variable ratio and ICA EDV. 6. Total occlusion=unable to detect flow.
[2021-07-19] MEDS: ATORVASTATIN 80 MG TAB PO SCH (23:11)
[2021-07-20 04:17] LABS: Basophils # (A) 0.1 k/uL (0-0.2); Basophils % (A) 1 %; Eosinophils % (A) 0 %; HCT 33.8 % (39.0-53.0); HGB 11.8 gm/dL (13.0-17.5); Lymphocytes # (A) 1.1 k/uL (1.0-4.8); Lymphocytes % (A) 14 %; MCH 35.4 pg (25.0-35.0); MCHC 34.9 g/dL (31.0-37.0); MCV 101.4 fL (80.0-100.0); Macrocytosis Slight; Mean Platelet Volume 7.5; Monocytes # (A) 0.4 k/uL (0-1.0); Monocytes % (A) 5 %; Neutrophils # (A) 6.2 k/uL (1.3-7.7); Neutrophils % (A) 78 %; Platelet Count 155 k/uL (150-450); RBC 3.33 m/uL (4.30-5.90); RDW 14.8 % (11.5-15.5)
[2021-07-20 04:38] LABS: Albumin 3.1 g/dL (3.5-5.0); Calcium 7.9 mg/dL (8.4-10.2); Magnesium 1.8 mg/dL (1.6-2.3); Potassium 3.3 mmol/L (3.5-5.1); Total Bilirubin 0.2 mg/dL (0.2-1.3); Total Protein 5.3 g/dL (6.3-8.2)
[2021-07-20] MEDS: LACOSAMIDE IV 50 MG in SODIUM CHLORIDE 0.9% 50 ML IVPB SCH ×2 (06:39→17:14)
[2021-07-20] MEDS: ASPIRIN 81 MG PO SCH (10:09)
--- NOTE | 2021-07-20 10:47 | P.PN ---
Subjective Progress Note Date: 07/20/21 Principal diagnosis: is a 75-year-old male known with ESRD on peritoneal dialysis. He recently had shingles and was treated with acyclovir and came in with confusion. It is deem ed to be from the acyclovir. He was on 1 g 3 times a day dose. He was dialyzed yesterday with a Tuan in his left groin to remove his acyclovir as it is not well dialyzed with PD. With one dialysis yesterday he has improved significantly in his mental status as well as his stuttering dysarthric speech. He is awake and alert and oriented today. Still has some tremors in his hands. Vital signs are stable. Neurology is recommending a LP to rule out zoster encephalitis. Objective - Vital Signs Vital signs: Vital Signs Temp 98.9 F 07/20/21 08:00 Pulse 99 07/20/21 10:00 Resp 18 07/20/21 10:00 BP 146/78 07/20/21 10:00 Pulse Ox 94 L 07/20/21 10:00 Intake & Output 07/19/21 07/20/21 07/20/21 18:59 06:59 18:59 Output Total 1000 Balance -1000 Output: Hemodialysis 1000 On exam he is awake alert oriented 3. HEENT exam no JVP neck is supple no facial asymmetry Lungs are clear to auscultation good air entry bilaterally Heart tones are unremarkable no murmur rub gallop Abdomen soft nontender PD catheter in Extremity exam reveals no edema Neurologically awake alert oriented still has some difficulty speaking with stuttering and some tremors in his hands with some possible asterixis - Labs CBC & Chem 7: 07/20/21 03:20 07/20/21 03:20 Labs: Abnormal Lab Results - Last 24 Hours (Table) 07/19/21 07/19/21 07/20/21 Range/Units 11:49 11:49 03:20 RBC 3.49 L 3.33 L (4.30-5.90) m/uL Hgb 12.2 L 11.8 L (13.0-17.5) gm/dL Hct 36.1 L 33.8 L (39.0-53.0) % MCV 103.5 H 101.4 H (80.0-100.0) fL MCH 35.4 H (25.0-35.0) pg Sodium 127 L (137-145) mmol/L Potassium (3.5-5.1) mmol/L Chloride 90 L (98-107) mmol/L Carbon Dioxide 19 L (22-30) mmol/L BUN 61 H (9-20) mg/dL Creatinine 9.93 H* (0.66-1.25) mg/dL Calcium (8.4-10.2) mg/dL Total Protein 5.5 L (6.3-8.2) g/dL Albumin 3.1 L (3.5-5.0) g/dL 07/20/21 Range/Units 03:20 RBC (4.30-5.90) m/uL Hgb (13.0-17.5) gm/dL Hct (39.0-53.0) % MCV (80.0-100.0) fL MCH (25.0-35.0) pg Sodium 125 L (137-145) mmol/L Potassium 3.3 L (3.5-5.1) mmol/L Chloride 91 L (98-107) mmol/L Carbon Dioxide 21 L (22-30) mmol/L BUN 33 H (9-20) mg/dL Creatinine 6.24 H (0.66-1.25) mg/dL Calcium 7.9 L (8.4-10.2) mg/dL Total Protein 5.3 L (6.3-8.2) g/dL Albumin 3.1 L (3.5-5.0) g/dL Assessment and Plan Assessment: Impression 1. Admitted with mental status changes likely from acyclovir. Computed tomography scan normal. No electrolyte abnormalities except for the mildly low sodium at 126 that should not cause his mental status changes and improved with 1 hemodialysis session with a Tuan in his left groin 2. Recent history of herpes zoster on T7 and T8 area confined to that dermatome. 3. 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 On dialysis since June 2020 on peritoneal dialysis 4. Hyponatremia secondary to excess fluid intake, sodium is 126, sodium is 125 this morning. He was dialyzed with the sodium bath of 1:30 not to change his sodium abruptly Recommendation 1. Will continue with 1 more session of hemodialysis today for 3-1/2 hours with a sodium of 135. Will takeoff 1 L. 2. Regarding the lumbar puncture if he is back to normal within before it but I'll leave it to the neurologist to make that decision 3. At the end of dialysis will recheck his sodium. Thank you for this consultation and we'll continue to follow
--- NOTE | 2021-07-20 12:02 | P.PN ---
Subjective This is a 75-year-old male patient with known peritoneal dialysis. He has no know I partner while I'm taking care of him myself on several occasions. He lives alone as his is in hospice at [facility]. Child has significant dysarthria and is on a tall this time. History was taken from the chart. Apparently he was recently seen in the office diagnosed with shingles. Given several lidocaine patches. The family brought him and after they were unable to get ahold of him. He was found down on unintelligibly speaking. Currently there is unable to determine if he has any complaints at this time. CT brain was negative except for atrophy, CT angiogram showed no pulmonary embolism. 07/20/2021: Patient is awake alert today. He is still in the emergency room due to lead placement issues. He continues to have dysarthria. Appears much improved. Apparently had a resolved quite a bit after hemodialysis. This concerns by nephrology for hemodialysis is causing some of the symptoms. He had a catheter placed and had one episode of dialysis yesterday and will have another one today. Neurology consult reevaluated him and suspicious for CVA or encephalopathy. They feel is less likely herpetic encephalopathy. Infectious disease had been consult as well. They placed him on acyclovir but adjusted the dose to his renal failure. A lumbar puncture to evaluate CSF fluid regarding the herpes is pending. Dr. Dong was consulted for placement of a dialysis catheter. Neurology also started the patient on Vimpat for tremors. Currently there are no obvious tremors with the patient. Patient was placed on aspirin, but other antiplatelets were deferred until the MRI is resulted. Currently Yevgeniy denies any chest pains, pressures, shortness breath. He indicates he had some nausea earlier today. Yevgeniy was concerned the lidocaine patches were possibly due to this. We discussed this to wearing 2 patches as opposed to 1 minute of light of this. But this seems less likely. Labs show no leukocytosis, no left shift, mild anemia, macrocytic in nature, coronary disease. He remains hyponatremic with sodium 125. Potassium 3.3. BUN is 33 with a creatinine of 6.2 for this time. TSH was normal. Vitamin B12 was normal. Toxicity of alcohol syndrome and associates was negative. Carotid Doppler shows mild to moderate plaque at the carotid bifurcation less than 50% stenosis of the proximal ICAs. 2-D echo showed mild aortic regurg, mild mitral regurgitation and mild tricuspid regurgitation. MRI of the brain without contrast, and EEG are pending still. Objective - Vital Signs Vital signs: Vital Signs Temp 98.9 F 07/20/21 08:00 Pulse 99 07/20/21 10:00 Resp 18 07/20/21 10:00 BP 146/78 07/20/21 10:00 Pulse Ox 94 L 07/20/21 10:00 Intake & Output 07/19/21 07/20/21 07/20/21 18:59 06:59 18:59 Output Total 1000 Balance -1000 Output: Hemodialysis 1000 - Exam General: The patient was asleep, but was easily arousable and became is awake and alert, he continues to be dysarthric but appears much more coherent today. Neck: The neck is supple, there is no thyromegaly, lymphadenopathy, tenderness or JVD. Cardiovascular: S1S2 is normal, There is a regular rate and rhythm. No murmur, rub or gallop is appreciated. Respiratory: Lungs are clear to auscultation bilaterally, respirations are non-labored, breath sounds are equal. Gastrointestinal: Soft, non-distended, non-tender abdomen without masses or organomegaly noted. There is no rebound or guarding present. Bowel sounds are unremarkable. Musculoskeletal: Normal ROM, no tenderness, There is no pedal edema. There is no calf tenderness or swelling. No cords were appreciated. Neurological: CN II-XII intact, there are no obvious motor or sensory deficits. Coordination appears grossly intact. Speech remains dysarthric, but is improved from yesterday. Skin: Skin is warm and dry he has noted lesions to his back consistent with healing shingles. - Labs CBC & Chem 7: 07/20/21 03:20 07/20/21 03:20 Labs: Abnormal Lab Results - Last 24 Hours (Table) 07/19/21 07/19/21 07/20/21 Range/Units 11:49 11:49 03:20 RBC 3.49 L 3.33 L (4.30-5.90) m/uL Hgb 12.2 L 11.8 L (13.0-17.5) gm/dL Hct 36.1 L 33.8 L (39.0-53.0) % MCV 103.5 H 101.4 H (80.0-100.0) fL MCH 35.4 H (25.0-35.0) pg Sodium 127 L (137-145) mmol/L Potassium (3.5-5.1) mmol/L Chloride 90 L (98-107) mmol/L Carbon Dioxide 19 L (22-30) mmol/L BUN 61 H (9-20) mg/dL Creatinine 9.93 H* (0.66-1.25) mg/dL Calcium (8.4-10.2) mg/dL Total Protein 5.5 L (6.3-8.2) g/dL Albumin 3.1 L (3.5-5.0) g/dL 07/20/21 Range/Units 03:20 RBC (4.30-5.90) m/uL Hgb (13.0-17.5) gm/dL Hct (39.0-53.0) % MCV (80.0-100.0) fL MCH (25.0-35.0) pg Sodium 125 L (137-145) mmol/L Potassium 3.3 L (3.5-5.1) mmol/L Chloride 91 L (98-107) mmol/L Carbon Dioxide 21 L (22-30) mmol/L BUN 33 H (9-20) mg/dL Creatinine 6.24 H (0.66-1.25) mg/dL Calcium 7.9 L (8.4-10.2) mg/dL Total Protein 5.3 L (6.3-8.2) g/dL Albumin 3.1 L (3.5-5.0) g/dL Assessment and Plan (1) Dysarthria Current Visit: Yes Status: Acute Code(s): R47.1 - DYSARTHRIA AND ANARTHRIA SNOMED Code(s): 6130454 (2) Hyponatremia Current Visit: Yes Status: Acute Code(s): E87.1 - HYPO-OSMOLALITY AND HYPONATREMIA SNOMED Code(s): 36157298 (3) CVA (cerebral vascular accident) Current Visit: Yes Status: Acute Code(s): I63.9 - CEREBRAL INFARCTION, UNSPECIFIED SNOMED Code(s): 098034050 (4) ESRD (end stage renal disease) Current Visit: Yes Status: Acute Code(s): N18.6 - END STAGE RENAL DISEASE SNOMED Code(s): 29882134 (5) Peritoneal dialysis catheter in place Current Visit: Yes Status: Acute Code(s): Z99.2 - DEPENDENCE ON RENAL DIALYSIS SNOMED Code(s): 765300784 (6) Shingles Current Visit: Yes Status: Acute Code(s): B02.9 - ZOSTER WITHOUT C OMPLICATIONS SNOMED Code(s): 3703131 (7) AAA (abdominal aortic aneurysm) Current Visit: No Status: Acute Code(s): I71.4 - ABDOMINAL AORTIC ANEURYSM, WITHOUT RUPTURE SNOMED Code(s): 857870934 (8) Anemia of renal disease Current Visit: No Status: Acute Priority: High Code(s): N18.9 - CHRONIC KIDNEY DISEASE, UNSPECIFIED; D63.1 - ANEMIA IN CHRONIC KIDNEY DISEASE SNOMED Code(s): 540957795 (9) Metabolic encephalopathy Current Visit: Yes Status: Acute Code(s): G93.41 - METABOLIC ENCEPHALOPATHY SNOMED Code(s): 74584904 Plan: We'll repeat labs this morning, Wait on neurology nephrology ID recommendations. MRI of the brain and EEG are pending. A second dialysis treatment is pending today. He remains on acyclovir, aspirin, atorvastatin, Vimpat He will be reevaluated in the next 24 hours.
--- NOTE | 2021-07-20 13:15 | P.PN ---
Subjective Progress Note Date: 07/20/21 The patient is seen at bedside and he stated he is doing better. Per his nurse she feels he is about the same. Yesterday he received dialysis Objective - Vital Signs Vital signs: Vital Signs Temp 98.9 F 07/20/21 08:00 Pulse 99 07/20/21 10:00 Resp 18 07/20/21 10:00 BP 146/78 07/20/21 10:00 Pulse Ox 94 L 07/20/21 10:00 Intake & Output 07/19/21 07/20/21 07/20/21 18:59 06:59 18:59 Output Total 1000 Balance -1000 Output: Hemodialysis 1000 - Exam GENERAL: The patient is lying in bed and is not in acute distress. NEUROLOGICAL: Higher mental function: The patient is awake, alert, oriented to self and time. He stated he was at [place]. He correctly stated the current state we are in, [facility] and [facility]. He is able to name objects appropriately (watch, pen). Patient is following simple commands (closing eyes, sticking tongue out). No aphasia or neglect. Cranial nerves: The pupils are round, equal and reactive to light. EOM: Intact and no nystagmus. No facial weakness. Has moderate to significant dysarthria. Is very hard of hearing (old per family). Motor: Gait is deferred. The strength is able to raise bilateral uppers and lowers above gravity. Normal tone and bulk. Has mild to moderate resting tremors of uppers (improved compared to yesterday). Sensation: Normal throughout. Reflexes (right/left): 1+ throughout. Plantars are mute bilaterally. WORK-UP: CT of the head is reported as cerebral atrophy. No change compared to old exam. No acute abnormality. CT angiography of the head and neck was reported as mild plaque formation at the carotid artery bifurcation without evidence of hemodynamic stenosis. No significant intercranial and angiographic abnormality. EKG is reported as sinus rhythm with first-degree AV block with premature atrial complexes. Left axis deviation. The right bundle branch block. Carotid duplex is reported as mild to moderate plaque at the carotid bifurcation was less than 50% stenosis of the proximal ICAs. 2Decho was reported as left ventricle systolic function is low normal with ejection fraction of 55%. Mild concentric left ventricular hypertrophy. Left atrial size is normal. AST of 22 ALT of 16. Calcium is 9.1 which is within normal limits Lipid panel is a triglyceride 158, cholesterol is 139, LDL is 71, and HDL 36. Lipase is 85 which is within normal limits. Urine drug screen is the serum alcohol was less than 10, acetaminophen is less than 10 and the sessile it is less than 1.0. Vitamin B12 is 482 which is considered within normal limits. Serum folate level is 12 which is within normal limits. TSH is 3.640 which is considered within normal limits. - Labs CBC & Chem 7: 07/20/21 03:20 07/20/21 03:20 Labs: Abnormal Lab Results - Last 24 Hours (Table) 07/19/21 07/20/21 07/20/21 Range/Units 11:49 03:20 03:20 RBC 3.33 L (4.30-5.90) m/uL Hgb 11.8 L (13.0-17.5) gm/dL Hct 33.8 L (39.0-53.0) % MCV 101.4 H (80.0-100.0) fL MCH 35.4 H (25.0-35.0) pg Sodium 127 L 125 L (137-145) mmol/L Potassium 3.3 L (3.5-5.1) mmol/L Chloride 90 L 91 L (98-107) mmol/L Carbon Dioxide 19 L 21 L (22-30) mmol/L BUN 61 H 33 H (9-20) mg/dL Creatinine 9.93 H* 6.24 H (0.66-1.25) mg/dL Calcium 7.9 L (8.4-10.2) mg/dL Total Protein 5.5 L 5.3 L (6.3-8.2) g/dL Albumin 3.1 L 3.1 L (3.5-5.0) g/dL Assessment and Plan Assessment: This is a 75-year-old gentleman with recent diagnosis of shingles right T7 to T8 dermatome of abdomen that presents to ED on 07/19/[address] atus and acute dysarthria. NIH per ED team is 1 and they felt it seemed like stroke. No IV tpa since outside window. * Altered mental status with significant dysarthria (Per ED they were concerned about stroke but on presentation per ED team just had dysarthria). Rule out stroke. I feel there is a component of his encephalopathy due to toxic- metabolic (because of worsening kidney function). At same time because of recent history of shingles rule outs any underlying infection (herpes as cause especially since newly diagnosed. But seem atypical/low on differential for encephalitis since no fever or leukocytosis). --mentation improved (after dialysis) but continues to be dysarthric and has tremors * Also has tremor that is new in onset: Possible due to metabolic (worsening kidney function)--improving but not resolved. Rule out seizure. * Hyponatremia (126) and it is felt due to excess fluid intake--currently 125 * Herpes zoster over the right T7 to T8 dermatome and is on acyclovir * End-stage renal disease with bilateral renal stents on the peritoneal dialysis * Hypertension and seem to be elevated (per family it labile at home) * History of pancreatitis (per family due to medication use) Plan: * Continue home medication of aspirin 81 mg and Lipitor 80 mg daily at bedtime for secondary stroke prophylaxis. I'll avoid dual antiplatelet for now until lied getting MRI of the brain to see whether that he truly has a stroke. * MRI of the brain without contrast is pending * Urgent routine EEG is pending. Continue on prophylactic Vimpat 50mg IV bid and if no seizure on EEG or improvement in his condition will consider tapering the medication down the line. * PT, OT and INTAKE WORKER are consulted. * Patient is on cardiac monitoring and that's to be continued. * Every 4 hours neuro checks * Is on IV acyclovir 250 mg every 12 hours (seems unlikely encephalitis since no fever or leukocytosis) and we'll defer the modification of medication to the ID team. * ID team consulted the anesthesiology for lumbar puncture. * Nephrology is on board. I spoke with nephrology team, and they feel like the patient condition was possibly as result of him being on acyclovir in the last 1 week that became toxic since he is end-stage renal disease. I would understand that it would cause encephalopathy but not just purely acute dysarthria but will wait for the MRI the brain to rule out any stroke. * We'll defer the rest of medical management to primary team. Plan was discussed with the primary team. Yesterday I discussed the same plan with his brother who was at bedside. Dr. Huynh will take over neurological service tomorrow AM. Wily Cuenca MD Neuro-Hospitalist. Time with Patient: Less than 30
[2021-07-20 14:18] LABS: Hepatitis B Surface Antibody Non-Reactive (Non-Reactive); Hepatitis B Surface Antigen Non-Reactive (Non-Reactive)
--- NOTE | 2021-07-20 17:08 | PN ---
PROGRESS NOTE DATE OF SERVICE: 07/20/2021 REASON FOR FOLLOWUP: Right-sided shingles and concern for encephalitis. INTERVAL HISTORY: The patient is afebrile. The patient is more awake and alert today. He is breathing comfortably. Denies any headache. No chest pain. No abdominal pain. Some itching to the right trunk rash area. No diarrhea. PHYSICAL EXAMINATION: Blood pressure 146/78 with a pulse of 99, temperature 98.9. He is 94% on room air. GENERAL DESCRIPTION: General description is an elderly male lying in bed in no distress. RESPIRATORY SYSTEM: Unlabored breathing. Clear to auscultation anteriorly. HEART: S1, S2. Regular rate and rhythm. ABDOMEN: Soft. No tenderness. LABS: Hemoglobin is 11.3, white count 8.0. BUN of 33. Creatinine is 6.24. DIAGNOSTIC IMPRESSION AND PLAN: Patient admitted to hospital with mental status changes, multifactorial, possible overdose with a recent diagnosis of right T9 dermatome shingles. The patient is currently on acyclovir with concern for encephalitis. LP was requested, not completed yet. Continue with supportive care. MMODL / IJN: [id number] /
[2021-07-20] MEDS: ACYCLOVIR SODIUM IVPB SCH (17:52)
[2021-07-20] MEDS: SODIUM CHLORIDE 0.9% IVPB SCH (17:52)
[2021-07-20] MEDS: ATORVASTATIN 80 MG TAB PO SCH (20:29)
[2021-07-21] MEDS: LACOSAMIDE IV 50 MG in SODIUM CHLORIDE 0.9% 50 ML IVPB SCH ×2 (06:11→17:59)
[2021-07-21] MEDS: ASPIRIN 81 MG PO SCH (09:00)
--- NOTE | 2021-07-21 09:00 | P.PN ---
Subjective Patient is seen in follow-up for end-stage renal disease. Patient is maintained on peritoneal dialysis outpatient. He has received 2 treatments of hemodialysis this admission due to encephalopathy possibly from acyclovir toxicity. He currently denies any chest pain or shortness of breath. He is awake and alert. Vital signs are stable. General: The patient appeared well nourished and normally developed. HEENT: Head exam is unremarkable. Neck is without jugular venous distension. LUNGS: Breath sounds decreased. HEART: Rate and Rhythm are regular. ABDOMEN: Soft, no distention. EXTREMITITES: No clubbing, cyanosis, or edema. Objective - Vital Signs Vital signs: Vital Signs Temp 97.7 F 07/21/21 08:00 Pulse 85 07/21/21 08:00 Resp 16 07/21/21 08:00 BP 164/77 07/21/21 08:00 Pulse Ox 99 07/21/21 08:00 Intake & Output 07/20/21 07/21/21 07/21/21 18:59 06:59 18:59 Output Total 1000 Balance -1000 Weight 53.388 kg 53 kg Output: Hemodialysis 1000 Other: # Voids 0 0 # Bowel Movements 0 0 - Labs CBC & Chem 7: 07/20/21 03:20 07/20/21 03:20 Assessment and Plan Plan: Assessment: 1. End-stage renal disease maintained on peritoneal dialysis outpatient. 2. Encephalopathy possibly from acyclovir toxicity status post 2 treatments of hemodialysis this admission. Has a left groin catheter. Neurology following as well. Possible lumbar puncture this admission. 3. Hyponatremia secondary to chronic kidney disease. 4. Recent shingles infection maintained on acyclovir. Dose adjusted for renal function. Plan: Plan for 1 more treatment of hemodialysis today. Resume peritoneal dialysis tomorrow. MRI and EEG pending.
[2021-07-21] MEDS: hydrALAZINE HCL 10 MG TAB PO SCH ×4 (11:06→22:35)
[2021-07-21 11:21] LABS: Calcium 8.5 mg/dL (8.4-10.2); Magnesium 2.3 mg/dL (1.6-2.3); Potassium 3.8 mmol/L (3.5-5.1)
[2021-07-21 11:29] LABS: Glucose,Whole Blood 121 mg/dL (75-99)
--- NOTE | 2021-07-21 11:30 | MR ---
EXAMINATION TYPE: MR brain wo con DATE OF EXAM: 07/21/2021 COMPARISON: CT scan 07/18/2021 HISTORY: Stroke TECHNIQUE: T1-weighted sagittal, T2, FLAIR, and diffusion axial, and T2 coronal coronal views of the brain are submitted. FINDINGS: There is no evidence of acute ischemia. Mild to moderate generalized degenerative change. Diffuse and numerous focal areas of abnormal signal the white matter are not. No midline shift or mass effect. Changes of mild chronic sinusitis. Orbits are symmetric. Craniocervical junction maintained. Sella tu rcica has a normal appearance. IMPRESSION: 1. No acute intracranial process mild to moderate degenerative and moderate nonspecific white matter changes most typical of remote white matter ischemia.
--- NOTE | 2021-07-21 12:36 | P.PAINCN ---
History of Present Illness - Reason for Consult Consult date: 07/21/21 - History of Present Illness This is a 75-year-old male consulted for to perform lumbar puncture. He has a significant medical history of end-stage renal disease on hemodialysis and was recently brought into the hospital due to mental status changes and slurred speech. Primary team feels that his encephalopathy was possibly from acyclovir toxicity and is currently being dialyzed through peritoneal hemodialysis. An MRI shows no signs of increased intracranial pressure. In addition to above, 13-point review of systems is also negative for chest pain, shortness of breath, changes in vision, changes in hearing, new onset weakness, abdominal pain, diarrhea, extreme fatigue, malaise, fever, skin changes, homicidal or suicidal ideation, or bowel or bladder incontinence. Physical exam: GENERAL: The patient is lying in bed a CHEST: The heart rate is regular rate rhythm. No murmurs to auscultation. LUNG: Clear to auscultation bilaterally no wheezing noted throughout. Not labored breathing. ABDOMEN/GI: Bowel sounds present in all 4 quadrants. No tenderness to palpation throughout. NEUROLOGICAL: Higher mental function: The patient is awake, alert, oriented to self only. Upon asking him the current year he would tell me the year he was born. Patient is following simple commands (closing eyes, sticking tongue out). There are instances where the patient was talking and that he wasn't making sense since it was hard to understand him. There does not appear to be any neglect from rios ited exam. Cranial nerves: No facial weakness. Has significant dysarthria. Is very hard of hearing (old per family). Motor: Gait is deferred. The strength is able to raise bilateral uppers and lowers above gravity. Normal tone and bulk. Has repeated resting tremors of uppers. Reflexes (right/left): 1+ throughout. Assessment: 1. Shingles 2. Valacyclovir induced toxicity Plan: - We will perform a lumbar puncture for him. Patient is not on blood thinners and has no evidence of midline shift on MRI I spent 50 minutes on patient care today. The time was used to review medical records including relevant urine studies and prescription history (MAPs), review of the available imaging, evaluation and examination the patient, coordination of care at the medical staff and if applicable referring physicians, as well as creation of the medical record. Past Medical History Past Medical History: GERD/Reflux, Hearing Disorder / Deafness, Hypertension, Renal Disease Additional Past Medical History / Comment(s): AAA. Peritoneal dialysis port daily. Pancreatitis 12/2020. Colon polyps. History of Any Multi-Drug Resistant Organisms: None Reported Past Surgical History: Cholecystectomy, Hernia Repair, Orthopedic Surgery Additional Past Surgical History / Comment(s): AAA stent placement, bilat inguinal hernia repair, peritoneal dialysis placement. ORIF Rt hand w/ pins. EGD, Colonoscopy. Past Anesthesia/Blood Transfusion Reactions: No Reported Reaction Past Psychological History: No Psychological Hx Reported Smoking Status: Former smoker Past Alcohol Use History: None Reported Additional Past Alcohol Use History / Comment(s): smoked 3 years, quit 1990 est. Past Drug Use History: None Reported - Past Family History Sister(s) Family Medical History: Cancer, Myocardial Infarction ([place]) Additional Family Medical History / Comment(s): esophageal ca Brother(s) Family Medical History: Pneumonia Medications and Allergies Home Medications Medication Instructions Recorded Confirmed Type Atorvastatin [Lipitor] 80 mg PO HS 01/12/19 07/18/21 History Calcium Acetate [PhosLo] 667 mg PO AC-TID 08/28/20 07/18/21 History Aspirin 81 mg PO HS 04/18/21 07/18/21 History Famotidine [Pepcid] 20 mg PO DAILY 04/18/21 07/18/21 History Midodrine HCl 5 mg PO BID PRN 04/18/21 07/18/21 History Potassium Chloride 10 meq PO DAILY 04/18/21 07/18/21 History Sucralfate [Carafate] 1 gm PO DAILY 04/25/21 07/18/21 History Heparin (Unknown Strength) 1 dose IV HS 07/18/21 07/18/21 History Lidocaine [Aspercreme Patch] 1 patch TOPICAL DAILY 07/18/21 07/18/21 History amLODIPine [Norvasc] 5 mg PO BID 07/18/21 07/18/21 History valACYclovir HCL [Valtrex] 1,000 mg PO TID 07/18/21 07/18/21 History dronabinoL [Marinol] 10 mg PO BID 07/19/21 07/19/21 History Allergies Allergy/AdvReac Type Severity Reaction Status Date / Time heparin Allergy Severe HIT/LARRY-see Verified 07/18/21 21:48 comment cyclobenzaprine Allergy Rash/Hives Verified 07/18/21 21:48 [From Flexeril] Physical Exam Vitals: Vital Signs Temp Pulse Pulse Pulse Resp BP BP 07/21/21 11:53 97.6 F 94 16 157/79 07/21/21 08:00 97.7 F 83 83 16 164/77 07/21/21 04:00 97.7 F 85 16 133/70 07/21/21 00:00 97.4 F L 94 18 132/71 07/20/21 20:00 98.2 F 94 16 149/86 07/20/21 17:20 98.6 F 100 16 159/81 07/20/21 17:15 100 16 07/20/21 15:20 82 18 120/84 Pulse Ox 07/21/21 11:53 99 07/21/21 08:00 99 07/21/21 04:00 97 07/21/21 00:00 97 07/20/21 20:00 99 07/20/21 17:20 98 07/20/21 17:15 07/20/21 15:20 98 Intake and Output 07/20/21 07/21/21 07/21/21 22:59 06:59 14:59 Output Total 1000 Balance -1000 Output: Hemodialysis 1000 Other: # Voids 0 0 0 # Bowel Movements 0 0 Weight 53.388 kg 53 kg Results CBC & Chem 7: 07/20/21 03:20 07/21/21 10:56 Labs: Abnormal Lab Results - Last 24 Hours (Table) 07/21/21 07/21/21 Range/Units 10:56 11:28 Sodium 130 L (137-145) mmol/L Chloride 95 L (98-107) mmol/L BUN 43 H (9-20) mg/dL Creatinine 6.36 H (0.66-1.25) mg/dL POC Glucose (mg/dL) 121 H (75-99) mg/dL PQRS Measure Charge Sheet PQRS Narrative: Smoking Status Former smoker Do You Want the Pneumonia Vaccine Up to Date Vaccine AT THIS TIME? Blood Pressure [Right Arm] 157/79 Blood Pressure 120/84 Pain Intensity [None] 0 Pain Intensity 0 Scale Used Numeric (1 - 10) Home Medications: Ambulatory Orders Atorvastatin [Lipitor] 80 mg PO HS 01/12/19 Calcium Acetate [PhosLo] 667 mg PO AC-TID 08/28/20 Aspirin 81 mg PO HS 04/18/21 Famotidine [Pepcid] 20 mg PO DAILY 04/18/21 Midodrine HCl 5 mg PO BID PRN 04/18/21 Potassium Chloride 10 meq PO DAILY 04/18/21 Sucralfate [Carafate] 1 gm PO DAILY 04/25/21 Heparin (Unknown Strength) 1 dose IV HS 07/18/21 Lidocaine [Aspercreme Patch] 1 patch TOPICAL DAILY 07/18/21 amLODIPine [Norvasc] 5 mg PO BID 07/18/21 valACYclovir HCL [Valtrex] 1,000 mg PO TID 07/18/21 dronabinoL [Marinol] 10 mg PO BID 07/19/21
--- NOTE | 2021-07-21 13:42 | EEG ---
ELECTROENCEPHALOGRAM REPORT DATE OF SERVICE: 07/21/2021 PREAMBLE: This is a 75-year-old male with altered mental status. Patient was found to be confused and disoriented by his family. The patient has shingles and was prescribed a new medication. EEG FINDINGS: This is a 21 channel routine EEG recording in a patient utilizing 10/20 international system with referential and bipolar montages. Background consists of well-developed, moderately well regulated, mixed frequencies of 4-6 hertz moderate amplitude theta intermixed with some alpha activity. Background does not seem to be clearly reactive to eye opening or closing. Photic driving response was not seen. Some drowsiness and stage 2 sleep was seen with presence of sleep spindles. Deeper stages of sleep were not attained. No focal or generalized epileptiform activity was seen. IMPRESSION: This is an abnormal EEG due to mild background slowing and some disorganization. This is suggestive of generalized cerebral dysfunction as can be seen with encephalopathy of metabolic, vascular or degenerative causes. No epileptiform activity was seen. MMODL / IJN: [id number] /
--- NOTE | 2021-07-21 14:06 | PN ---
PROGRESS NOTE DATE OF SERVICE: 07/21/2021 REASON FOR FOLLOWUP: Right T9 dermatome . INTERVAL HISTORY: The patient is currently afebrile. The patient seemed to be to back to his baseline. The patient denies having any chest pain. No shortness of breath or cough. No abdominal pain, or worsening rash to the right trunk or any worsening pain. PHYSICAL EXAMINATION: Blood pressure 157/79 with a pulse of 94, temperature 97.6. He is 99% on room air. General description is an elderly male lying in bed in no distress. Respiratory system: Unlabored breathing, clear to auscultation anteriorly. Heart S1, S2. Regular rate and rhythm. Abdomen: Soft, no tenderness. Right trunk rash has decreased in intensity. No new rash has been noticed. DIAGNOSTIC IMPRESSION AND PLAN: Patient with right T9 dermatome shingles, on acyclovir, transition to Valtrex, dose adjusted on the basis of kidney function for another 5 to 7 days and close outpatient followup. Family at the bedside. Questions answered. MMODL / IJN: [id number] /
--- NOTE | 2021-07-21 14:39 | P.PN ---
Subjective Progress Note Date: 07/21/21 Patient initially seen by Dr. Wily Cuenca for consultation, please refer to his note for details. Patient is a 75-year-old male with history of end-stage renal disease on peritoneal dialysis, has recently suffered from herpes zoster involving T6 to T8 dermatomes, on acyclovir, has developed acute dysarthria. Patient was not a candidate for TPA. Patient is currently getting a toenail dialysis. Patient denies any headache. Denies any numbness or tingling. No speech difficulty. No symptoms. Looks very comfortable. Objective - Vital Signs Vital signs: Vital Signs Temp 97.6 F 07/21/21 11:53 Pulse 94 07/21/21 11:53 Resp 16 07/21/21 11:53 BP 157/79 07/21/21 11:53 Pulse Ox 99 07/21/21 11:53 Intake & Output 07/20/21 07/21/21 07/21/21 18:59 06:59 18:59 Output Total 1000 Balance -1000 Weight 53.388 kg 53 kg Output: Hemodialysis 1000 Other: # Voids 0 0 # Bowel Movements 0 0 - Exam GENERAL: The patient is lying in bed and is not in acute distress. He is getting very total dialysis. NEUROLOGICAL: Higher mental function: The patient is awake, alert, oriented to self and time. Patient states that he is in [facility]. He knows it is June 2021. He is able to name objects appropriately (knuckles, earlobe). Patient can repeat without any problem. Patient is following simple commands (closing eyes, sticking tongue out). No aphasia or neglect. Cranial nerves: The pupils are round, equal and reactive to light. EOM: Intact and no nystagmus. No facial weakness. No dysarthria.. Is very hard of hearing (old per family). Motor: Gait is deferred. The strength is able to raise bilateral uppers and lowers above gravity. Normal tone and bulk. Has mild to moderate postural tremors of uppers, none observed at rest. Sensation: Normal throughout. Reflexes (right/left): 1+ throughout. Plantars are mute bilaterally. - Labs CBC & Chem 7: 07/20/21 03:20 07/21/21 10:56 Labs: Abnormal Lab Results - Last 24 Hours (Table) 07/21/21 07/21/21 Range/Units 10:56 11:28 Sodium 130 L (137-145) mmol/L Chloride 95 L (98-107) mmol/L BUN 43 H (9-20) mg/dL Creatinine 6.36 H (0.66-1.25) mg/dL POC Glucose (mg/dL) 121 H (75-99) mg/dL Assessment and Plan Assessment: This is a 75-year-old gentleman with recent diagnosis of shingles right T7 to T8 dermatome of abdomen that presents to ED on 07/19/2021 for altered mental status and acute dysarthria. NIH per ED team is 1 and they felt it seemed like stroke. No IV tpa since outside window. * Altered mental status with significant dysarthria (Per ED they were concerned about stroke but on presentation per ED team just had dysarthria). Rule out stroke. I feel there is a component of his encephalopathy due to toxic- metabolic (because of worsening kidney function). At same time because of recent history of shingles rule outs any underlying infection (herpes as cause especially since newly diagnosed. But seem atypical/low on differential for encephalitis since no fever or leukocytosis). --mentation improved (after dialysis) but continues to be dysarthric and has tremors * Also has tremor that is new in onset: Possible due to metabolic (worsening k idney function)--improving but not resolved. No evidence of seizure. * Hyponatremia (126) and it is felt due to excess fluid intake--currently 125 * Herpes zoster over the right T7 to T8 dermatome and is on acyclovir * End-stage renal disease with bilateral renal stents on the peritoneal dialysis * Hypertension and seem to be elevated (per family it labile at home) * History of pancreatitis (per family due to medication use) Plan: * Patient is doing very well. Examination is nonfocal. * Continue home medication of aspirin 81 mg and Lipitor 80 mg daily at bedtime for secondary stroke prophylaxis. No indication for dual antiplatelet medication because MRI was negative. * MRI of the brain without contrast revealed no acute intracranial process, mild to moderate degenerative and moderate nonspecific white matter changes, most typical of remote white matter ischemia. * EEG was abnormal due to mild background slowing with some disorganization. This is suggestive of generalized cerebral dysfunction as can be seen with encephalopathy of metabolic, vascular or degenerative causes. No epileptiform activity was seen. We will discontinue Vimpat. * Telemetry monitoring showing sinus rhythm. No A. fib. * Patient currently on IV acyclovir 250 mg every 24 hours. ID managing. * Await lumbar puncture. * Nephrology is on board. * We'll defer the rest of medical management to primary team. WORK-UP: CT of the head is reported as cerebral atrophy. No change compared to old exam. No acute abnormality. CT angiography of the head and neck was reported as mild plaque formation at the carotid artery bifurcation without evidence of hemodynamic stenosis. No significant intercranial and angiographic abnormality. EKG is reported as sinus rhythm with first-degree AV block with premature atrial complexes. Left axis deviation. The right bundle branch block. Carotid duplex is reported as mild to moderate plaque at the carotid bifurcation was less than 50% stenosis of the proximal ICAs. 2Decho was reported as left ventricle systolic function is low normal with ejection fraction of 55%. Mild concentric left ventricular hypertrophy. Left atrial size is normal. AST of 22 ALT of 16. Calcium is 9.1 which is within normal limits Lipid panel is a triglyceride 158, cholesterol is 139, LDL is 71, and HDL 36. Lipase is 85 which is within normal limits. Urine drug screen is the serum alcohol was less than 10, acetaminophen is less than 10 and the sessile it is less than 1.0. Vitamin B12 is 482 which is considered within normal limits. Serum folate level is 12 which is within normal limits. TSH is 3.640 which is considered within normal limits.
--- NOTE | 2021-07-21 15:32 | P.PN ---
Subjective Progress Note Date: 07/21/21 This is a 75-year-old male patient with known peritoneal dialysis. He has no know I partner while I'm taking care of him myself on several occasions. He lives alone as his is in hospice at [facility]. Child has significant dysarthria and is on a tall this time. History was taken from the chart. Apparently he was recently seen in the office diagnosed with shingles. Given several lidocaine patches. The family brought him and after they were unable to get ahold of him. He was found down on unintelligibly speaking. Currently there is unable to determine if he has any complaints at this time. CT brain was negative except for atrophy, CT angiogram showed no pulmonary embolism. 07/20/2021: Patient is awake alert today. He is still in the emergency room due to lead placement issues. He continues to have dysarthria. Appears much improved. Apparently had a resolved quite a bit after hemodialysis. This concerns by nephrology for hemodialysis is causing some of the symptoms. He had a catheter placed and had one episode of dialysis yesterday and will have another one today. Neurology consult reevaluated him and suspicious for CVA or encephalopathy. They feel is less likely herpetic encephalopathy. Infectious disease had been consult as well. They placed him on acyclovir but adjusted the dose to his renal failure. A lumbar puncture to evaluate CSF fluid regarding the herpes is pending. Dr. Dong was consulted for placement of a dialysis catheter. Neurology also started the patient on Vimpat for tremors. Currently there are no obvious tremors with the patient. Patient was placed on aspirin, but other antiplatelets were deferred until the MRI is resulted. Currently Yevgeniy denies any chest pains, pressures, shortness breath. He indicates he had some nausea earlier today. Yevgeniy was concerned the lidocaine patches were possibly due to this. We discussed this to wearing 2 patches as opposed to 1 minute of light of this. But this seems less likely. Labs show no leukocytosis, no left shift, mild anemia, macrocytic in nature, coronary disease. He remains hyponatremic with sodium 125. Potassium 3.3. BUN is 33 with a creatinine of 6.2 for this time. TSH was normal. Vitamin B12 was normal. Toxicity of alcohol syndrome and associates was negative. Carotid Doppler shows mild to moderate plaque at the carotid bifurcation less than 50% stenosis of the proximal ICAs. 2-D echo showed mild aortic regurg, mild mitral regurgitation and mild tricuspid regurgitation. MRI of the brain without contrast, and EEG are pending still. 07/21/2021 scheduled for EEG and MRI this morning. Continues on acyclovir. Scheduled for third hemodialysis treatment today, resuming peritoneal dialysis tomorrow as per nephrology. BUN 43, creatinine 6.36 Telemetry sinus rhythm. Denies chest pain, palpitations or shortness of breath. Dysarthria appears to be resolved. Denies numbness or tingling. Maintained on renal dosed acyclovir. continues on IV fluid hydration with sodium up to 1:30. Objective - Vital Signs Vital signs: Vital Signs Temp 97.7 F 07/21/21 08:00 Pulse 85 07/21/21 08:00 Resp 16 07/21/21 08:00 BP 164/77 07/21/21 08:00 Pulse Ox 99 07/21/21 08:00 Intake & Output 07/20/21 07/21/21 07/21/21 18:59 06:59 18:59 Output Total 1000 Balance -1000 Weight 53.388 kg 53 kg Output: Hemodialysis 1000 Other: # Voids 0 0 # Bowel Movements 0 0 - Exam - Exam General: Sitting up in bed, alert and oriented 3, hard of hearing, dysarthria resolved Neck: The neck is supple, there is no thyromegaly, lymphadenopathy, tenderness or JVD. Cardiovascular: S1S2 is normal, There is a regular rate and rhythm. No murmur, rub or gallop is appreciated. Respiratory: Lungs are clear to auscultation bilaterally, respirations are non-labored, breath sounds are equal. Gastrointestinal: Soft, non-distended, non-tender abdomen without masses or organomegaly noted. There is no rebound or guarding present. Positive Bowel sounds. Musculoskeletal: Normal ROM, no tenderness, no pedal edema, no calf tenderness or swelling. Neurological: CN II-XII intact, there are no obvious motor or sensory deficits. Coordination appears grossly intact. Skin: Skin is warm and dry he has noted lesions to his back consistent with healing shingles. - Labs CBC & Chem 7: 07/20/21 03:20 07/21/21 10:56 Assessment and Plan Assessment: Acute shingles Acute toxic, metabolic encephalopathy, possibly virus induced, possiblymed induced, patient had doubled up on lidocaine patches, outpatient, possibly a cyclovir toxicity secondary to worsening renal function End-stage renal disease, on peritoneal dialysis outpatient Hyponatremia Dehydration Severe protein malnutrition, secondary to Poor oral intake Anemia of chronic disease, iron deficient History of AAA, following with vascular surgery outpatient Former nicotine dependence Moderate mitral regurgitation Mild pulmonary hypertension History of Nonspecific 12 x 0.6 cm lung opacity, follow-up OP rec. Plan: Continue on current medication regime ,monitoring and symptomatic treatment. Neuro consult in place with Neuro workup in progress. Dietary consult secondary to poor intake. PT OT, potential subacute rehab at discharge. Dialysis as per nephrology. Cultures pending, antibiotics as per ID. Prognosis cardiac, multiple complex medical issues. The impression and plan of care has been dictated as directed. : I performed a history and examination of this patient, discussed the same with the dictator. I agree with the dictator's note ,documented as a scribe. Any additional findings or plans will be noted.
[2021-07-21 16:33] LABS: Glucose,Whole Blood 104 mg/dL (75-99)
[2021-07-21] MEDS: ACYCLOVIR SODIUM IVPB SCH (17:59)
[2021-07-21] MEDS: SODIUM CHLORIDE 0.9% IVPB SCH (17:59)
[2021-07-21 20:09] LABS: Glucose,Whole Blood 108 mg/dL (75-99)
[2021-07-21] MEDS: ATORVASTATIN 80 MG TAB PO SCH (20:21)
[2021-07-22 06:06] LABS: Glucose,Whole Blood 104 mg/dL (75-99)
[2021-07-22] MEDS: LACOSAMIDE IV 50 MG in SODIUM CHLORIDE 0.9% 50 ML IVPB SCH (06:36)
[2021-07-22] MEDS: ASPIRIN 81 MG PO SCH (08:02)
[2021-07-22] MEDS: hydrALAZINE HCL 10 MG TAB PO SCH ×3 (08:06→19:41)
[2021-07-22 08:10] LABS: Calcium 8.2 mg/dL (8.4-10.2); Potassium 3.6 mmol/L (3.5-5.1)
[2021-07-22] MEDS ORDERED: POTASSIUM CHLORIDE ER 20 MEQ TAB.ER PO STA (09:14)
--- NOTE | 2021-07-22 09:15 | P.PN ---
Subjective Patient is seen in follow-up for end-stage renal disease. Patient is maintained on peritoneal dialysis outpatient. He has received 3 treatments of hemodialysis this admission due to encephalopathy possibly from acyclovir toxicity. He currently denies any chest pain or shortness of breath. He is awake and alert. Vital signs are stable. General: The patient appeared well nourished and normally developed. HEENT: Head exam is unremarkable. Neck is without jugular venous distension. LUNGS: Breath sounds decreased. HEART: Rate and Rhythm are regular. ABDOMEN: Soft, no distention. EXTREMITITES: No edema. Objective - Vital Signs Vital signs: Vital Signs Temp 97.6 F 07/22/21 08:02 Pulse 92 07/22/21 08:02 Resp 18 07/22/21 08:02 BP 139/82 07/22/21 08:02 Pulse Ox 95 07/22/21 08:02 Intake & Output 07/21/21 07/22/21 07/22/21 18:59 06:59 18:59 Intake Total 120 100 125 Output Total 1002 Balance -882 100 125 Weight 54 kg Intake: Intake, IV Titration 100 Amount Acyclovir Sodium 250 mg 100 In Sodium Chloride 0.9% 100 ml @ 100 mls/hr IVPB Q24H [facility] Rx#:[id number] Oral 120 125 Output: Urine 0 Stool 2 Hemodialysis 1000 Other: # Voids 0 0 # Bowel Movements 0 1 - Labs CBC & Chem 7: 07/20/21 03:20 07/22/21 07:31 Labs: Abnormal Lab Results - Last 24 Hours (Table) 07/19/21 07/21/21 07/21/21 Range/Units 14:30 10:56 11:28 Sodium 130 L (137-145) mmol/L Chloride 95 L (98-107) mmol/L BUN 43 H (9-20) mg/dL Creatinine 6.36 H (0.66-1.25) mg/dL Glucose (74-99) mg/dL POC Glucose (mg/dL) 121 H (75-99) mg/dL Calcium (8.4-10.2) mg/dL RBC Folate 1,133 H (280 - 791) ng/mL 07/21/21 07/21/21 07/22/21 Range/Units 16:32 20:07 06:05 Sodium (137-145) mmol/L Chloride (98-107) mmol/L BUN (9-20) mg/dL Creatinine (0.66-1.25) mg/dL Glucose (74-99) mg/dL POC Glucose (mg/dL) 104 H 108 H 104 H (75-99) mg/dL Calcium (8.4-10.2) mg/dL RBC Folate (280 - 791) ng/mL 07/22/21 Range/Units 07:31 Sodium 131 L (137-145) mmol/L Chloride (98-107) mmol/L BUN 35 H (9-20) mg/dL Creatinine 5.76 H (0.66-1.25) mg/dL Glucose 109 H (74-99) mg/dL POC Glucose (mg/dL) (75-99) mg/dL Calcium 8.2 L (8.4-10.2) mg/dL RBC Folate (280 - 791) ng/mL Assessment and Plan Plan: Assessment: 1. End-stage renal disease maintained on peritoneal dialysis outpatient. 2. Encephalopathy possibly from acyclovir toxicity status post 3 treatments of hemodialysis this admission. He was also using multiple lidocaine patches daily. Has a left groin catheter. Neurology following as well. Possible lumbar puncture this admission. No seizure activity noted on EEG. No acute process noted on MRI. 3. Hyponatremia secondary to chronic kidney disease. 4. Recent shingles infection maintained on acyclovir. Dose adjusted for renal function. Plan: Resume peritoneal dialysis today. Discontinue groin dialysis catheter. Patient may need to go to subacute rehab. If so, will need permacath placed for outpatient hemodialysis.
[2021-07-22] MEDS ORDERED: SODIUM CHLORIDE 0.9% 1,000 ML IV ONE (09:28)
[2021-07-22 09:35] LABS: Glucose,Whole Blood 120 mg/dL (75-99)
--- NOTE | 2021-07-22 10:02 | P.PCN ---
Date of Procedure: 07/22/21 Surgeon: Roberth Hall Pathology: none sent Condition: stable Disposition: PACU Description of Procedure: Procedure=1-lumbar puncture . Preoperative diagnoses= demyelinating lesions in the brain Postoperative diagnosis= same as above Anesthesia= local only with lidocaine infiltration Condition= stable. Complications=none. Indication for the procedure: The patient was referred to us by her neurologist for diagnostic lumbar puncture to rule out multiple sclerosis. procedure risk and benefits and alternatives discussed with the patient and she was agreeable to proceeding with it. Description of the procedure=the patient was brought into the procedure room and placed in the sitting position , monitors applied, the back prepped with chlorhexidine , skin was localized with 1% lidocaine, then 22-gauge quinckie Needle advanced slowly at L4 -5 interlaminar space to get access to the intrathecal space. The needle bevel turned 90 before entering the thecal sac to decrease the risk of postdural puncture headache. Cerebrospinal fluid was clear with no heme. Multiple attempts were needed. No paresthesia was encountered during this procedure .A total of 6 mL of clear cerebrospinal fluid were collected in 4 different tubes, the needle removed, Band-Aid applied , patient tolerated the procedure well without any complications. Further management as per her neurologist
[2021-07-22 11:15] LABS: Glucose,CSF 59 mg/dL (40-70); Total Protein,CSF 57 mg/dL (12-60)
[2021-07-22 11:58] LABS: Glucose,Whole Blood 114 mg/dL (75-99)
--- NOTE | 2021-07-22 12:04 | P.CONS ---
History of Present Illness - Chief Complaint Medical debility - History of Present Illness I had the opportunity to see patient for inpatient rehab consultation with regard to medical debility. Patient admitted to [facility] July 18 with dysarthria and confusion. Seen by nephrology for known end-stage renal disease. Seen by Dr. Wily Cuenca who notes herpes zoster in T7-[address] Lamb for pain management. Chest x-ray demonstrates decreased left lower lobe infiltrate. Head CT with cerebral atrophy. Angiogram CT demonstrates mild plaques carotids. Carotid Doppler demonstrates left and 50% occlusion bilateral. Brain MRI demonstrates moderate white matter change. His started t herapies. PT reports total assistance for transfers and gait 20 feet, hand- held, balance poor. OT reports minimal assistance for upper dressing and functional mobility/transfers and moderate assistance for lower dressing, bathing, toileting. Speech therapy status following appears be within normal limits and recommend pured, chopped, regular, thin. [place] cognition as well. Previous functional history as elicited from patient: 75 showed right-handed white male who is lives in one floor home alone. at [facility]. Patient retired in independent with own cooking, laundry, driving, standing shower and gait with occasional need of standard walker. PCP Dr. Garza. Denies tobacco or alcohol. Review of Systems Review of systems: Skin: Denies any active shingles or or dermal pain. ENT: Denies sneezes or discharge. Eyes: Denies discharge or photophobia. Cardiac: Denies chest pain or palpitation. Pulmonary: Denies cough or shortness of breath. Gastrointestinal: Denies nausea, emesis, constipation, diarrhea. Genitourinary: Denies discharge or frequency. Musculoskeletal: Denies muscle or bone aches. Neurologic: Denies motor or sensory change. Endocrine: Denies shakes or sweats. Oncology: Denies cancers. Dermatologic: Denies rash, itching, pruritus. ALLERGY/immunology: Denies sneezes, rashes. Past Medical History Past Medical History: GERD/Reflux, Hearing Disorder / Deafness, Hypertension, Renal Disease Additional Past Medical History / Comment(s): AAA. Peritoneal dialysis port daily. Pancreatitis 12/2020. Colon polyps. History of Any Multi-Drug Resistant Organisms: None Reported Past Surgical History: Cholecystectomy, Hernia Repair, Orthopedic Surgery Additional Past Surgical History / Comment(s): AAA stent placement, bilat inguinal hernia repair, peritoneal dialysis placement. ORIF Rt hand w/ pins. EGD, Colonoscopy. Past Anesthesia/Blood Transfusion Reactions: No Reported Reaction Past Psychological History: No Psychological Hx Reported Smoking Status: Former smoker Past Alcohol Use History: None Reported Additional Past Alcohol Use History / Comment(s): smoked 3 years, quit 1990 est. Past Drug Use History: None Reported - Past Family History Sister(s) Family Medical History: Cancer, Myocardial Infarction ([place]) Additional Family Medical History / Comment(s): esophageal ca Brother(s) Family Medical History: Pneumonia Medications and Allergies Home Medications Medication Instructions Recorded Confirmed Type Atorvastatin [Lipitor] 80 mg PO HS 01/12/19 07/18/21 History Calcium Acetate [PhosLo] 667 mg PO AC-TID 08/28/20 07/18/21 History Aspirin 81 mg PO HS 04/18/21 07/18/21 History Famotidine [Pepcid] 20 mg PO DAILY 04/18/21 07/18/21 History Midodrine HCl 5 mg PO BID PRN 04/18/21 07/18/21 History Potassium Chloride 10 meq PO DAILY 04/18/21 07/18/21 History Sucralfate [Carafate] 1 gm PO DAILY 04/25/21 07/18/21 History Heparin (Unknown Strength) 1 dose IV HS 07/18/21 07/18/21 History Lidocaine [Aspercreme Patch] 1 patch TOPICAL DAILY 07/18/21 07/18/21 History amLODIPine [Norvasc] 5 mg PO BID 07/18/21 07/18/21 History valACYclovir HCL [Valtrex] 1,000 mg PO TID 07/18/21 07/18/21 History dronabinoL [Marinol] 10 mg PO BID 07/19/21 07/19/21 History Allergies Allergy/AdvReac Type Severity Reaction Status Date / Time heparin Allergy Severe HIT/LARRY-see Verified 07/18/21 21:48 comment cyclobenzaprine Allergy Rash/Hives Verified 07/18/21 21:48 [From Flexeril] Physical Exam Vitals: Vital Signs Temp Pulse Pulse Pulse Resp BP Pulse Ox 07/22/21 09:20 81 16 121/74 97 07/22/21 08:02 97.6 F 92 18 139/82 95 07/22/21 08:00 92 18 07/22/21 04:00 97.4 F L 89 18 139/80 96 07/22/21 00:00 97.3 F L 98 16 156/87 97 07/21/21 19:44 97.8 F 87 16 137/71 98 07/21/21 17:43 85 18 147/85 07/21/21 15:02 97.6 F 72 16 122/81 99 07/21/21 13:39 83 94 16 Intake and Output 07/21/21 07/22/21 07/22/21 22:59 06:59 14:59 Intake Total 220 125 Output Total 1000 Balance -780 125 Intake: Intake, IV Titration 100 Amount Acyclovir Sodium 250 mg 100 In Sodium Chloride 0.9% 100 ml @ 100 mls/hr IVPB Q24H [facility] Rx#:[id number] Oral 120 125 Output: Hemodialysis 1000 Other: # Voids 0 # Bowel Movements 1 Weight 54 kg 54 kg Skin: Atrophic, intact. General: Thin build and comfortable appearance. Head: Normocephalic, atraumatic. Eyes: Symmetric. Pupils equal round. Ears: Symmetric. Hearing within normal limits. Mouth: Clear. Neck: Supple. Carotid without bruit. Cardiac: Regular rate and rhythm. Lungs: Clear anteriorly and posteriorly. Abdomen: Soft active nontender. Extremities: Normal tone. Thin limbs. Neurological: Mental status: Alert, cooperative, pleasant. Cranial nerves: Symmetric facial tone and trapezius. Motor: Active antigravity movement all 4 limbs. Sensation: Intact throughout. DTRs: Symmetric and equal throughout. Mobility: Did not attempt to sit or stand at this time. Results CBC & Chem 7: 07/20/21 03:20 07/22/21 07:31 Labs: Abnormal Lab Results - Last 24 Hours (Table) 07/19/21 07/21/21 07/21/21 Range/Units 14:30 16:32 20:07 Sodium (137-145) mmol/L BUN (9-20) mg/dL Creatinine (0.66-1.25) mg/dL Glucose (74-99) mg/dL POC Glucose (mg/dL) 104 H 108 H (75-99) mg/dL Calcium (8.4-10.2) mg/dL RBC Folate 1,133 H (280 - 791) ng/mL 07/22/21 07/22/21 07/22/21 Range/Units 06:05 07:31 09:21 Sodium 131 L (137-145) mmol/L BUN 35 H (9-20) mg/dL Creatinine 5.76 H (0.66-1.25) mg/dL Glucose 109 H (74-99) mg/dL POC Glucose (mg/dL) 104 H 120 H (75-99) mg/dL Calcium 8.2 L (8.4-10.2) mg/dL RBC Folate (280 - 791) ng/mL 07/22/21 Range/Units 11:50 Sodium (137-145) mmol/L BUN (9-20) mg/dL Creatinine (0.66-1.25) mg/dL Glucose (74-99) mg/dL POC Glucose (mg/dL) 114 H (75-99) mg/dL Calcium (8.4-10.2) mg/dL RBC Folate (280 - 791) ng/mL Assessment and Plan Plan: Impression: 1. Medical debility. 2. End-stage renal failure. 3. Shingles. 4. Hypertension. 5. JOVANI. 6. Hard of hearing. Comments and plan: At this time PT, OT, MANAGER SUSTAINABILITY ongoing. Some safety concerns noted. At this time do not have a definite rehab diagnosis for possible admission to inpatient rehab. We'll attempt to review closely for insurance criteria.
[2021-07-22 12:09] VITALS: BMI 19.2
[2021-07-22] MEDS: DIALYSIS (PERIT 2.5%) 2,000 ML 50 G/2,000 ML BAG INTRAPERIT SCH ×3 (13:41→23:46)
--- NOTE | 2021-07-22 14:57 | P.PN ---
Subjective Progress Note Date: 07/22/21 This is a 75-year-old male patient with known peritoneal dialysis. He has no know I partner while I'm taking care of him myself on several occasions. He lives alone as his is in hospice at [facility]. Child has significant dysarthria and is on a tall this time. History was taken from the chart. Apparently he was recently seen in the office diagnosed with shingles. Given several lidocaine patches. The family brought him and after they were unable to get ahold of him. He was found down on unintelligibly speaking. Currently there is unable to determine if he has any complaints at this time. CT brain was negative except for atrophy, CT angiogram showed no pulmonary embolism. 07/20/2021: Patient is awake alert today. He is still in the emergency room due to lead placement issues. He continues to have dysarthria. Appears much improved. Apparently had a resolved quite a bit after hemodialysis. This concerns by nephrology for hemodialysis is causing some of the symptoms. He had a catheter placed and had one episode of dialysis yesterday and will have another one today. Neurology consult reevaluated him and suspicious for CVA or encephalopathy. They feel is less likely herpetic encephalopathy. Infectious disease had been consult as well. They placed him on acyclovir but adjusted the dose to his renal failure. A lumbar puncture to evaluate CSF fluid regarding the herpes is pending. Dr. Dong was consulted for placement of a dialysis catheter. Neurology also started the patient on Vimpat for tremors. Currently there are no obvious tremors with the patient. Patient was placed on aspirin, but other antiplatelets were deferred until the MRI is resulted. Currently Yevgeniy denies any chest pains, pressures, shortness breath. He indicates he had some nausea earlier today. Yevgeniy was concerned the lidocaine patches were possibly due to this. We discussed this to wearing 2 patches as opposed to 1 minute of light of this. But this seems less likely. Labs show no leukocytosis, no left shift, mild anemia, macrocytic in nature, coronary disease. He remains hyponatremic with sodium 125. Potassium 3.3. BUN is 33 with a creatinine of 6.2 for this time. TSH was normal. Vitamin B12 was normal. Toxicity of alcohol syndrome and associates was negative. Carotid Doppler shows mild to moderate plaque at the carotid bifurcation less than 50% stenosis of the proximal ICAs. 2-D echo showed mild aortic regurg, mild mitral regurgitation and mild tricuspid regurgitation. MRI of the brain without contrast, and EEG are pending still. 07/21/2021 scheduled for EEG and MRI this morning. Continues on acyclovir. Scheduled for third hemodialysis treatment today, resuming peritoneal dialysis tomorrow as per nephrology. BUN 43, creatinine 6.36 Telemetry sinus rhythm. Denies chest pain, palpitations or shortness of breath. Dysarthria appears to be resolved. Denies numbness or tingling. Maintained on renal dosed acyclovir. continues on IV fluid hydration with sodium up to 1:30. 07/22/2021 Completed lumbar puncture , tolerated procedure well. CS Cytology pending. Status post 3 sessions of hemodialysis and scheduled to resume peritoneal dialysis today . BUN 35, creatinine 5.76. Sensorium significantly improved. Denies chest pain, palpitations or shortness of breath. Maintaining O2 sats in the high 90s on room air. Afebrile. Sodium improving, currently 131. Evaluated by neurology. EEG reported no seizure activity, suggestive of generalized cerebral dysfunction seen with encephalopathy for metabolic, vascular or degenerative causes, brain MRI reported no acute process. Objective - Vital Signs Vital signs: Vital Signs Temp 97.6 F 07/22/21 08:02 Pulse 81 07/22/21 09:20 Resp 16 07/22/21 09:20 BP 121/74 07/22/21 09:20 Pulse Ox 97 07/22/21 09:20 Intake & Output 07/21/21 07/22/21 07/22/21 18:59 06:59 18:59 Intake Total 120 100 125 Output Total 1002 Balance -882 100 125 Weight 54 kg 54 kg Intake: Intake, IV Titration 100 Amount Acyclovir Sodium 250 mg 100 In Sodium Chloride 0.9% 100 ml @ 100 mls/hr IVPB Q24H [facility] Rx#:[id number] Oral 120 125 Output: Urine 0 Stool 2 Hemodialysis 1000 Other: # Voids 0 0 # Bowel Movements 0 1 - Exam - Exam General: Sitting up in bed, alert and oriented 3, hard of hearing. Neck: The neck is supple,no JVD. Cardiovascular: S1S2 is normal, There is a regular rate and rhythm. No murmur, rub or gallop is appreciated. Respiratory: Lungs are clear to auscultation bilaterally, respirations are non-labored, breath sounds are equal. Gastrointestinal: Soft, non-distended, non-tender abdomen without masses or organomegaly noted. no rebound or guarding present. Positive Bowel sounds. Musculoskeletal: Normal ROM, no tenderness, no pedal edema, no calf tenderness or swelling. Neurological: CN II-XII intact, strength and sensation grossly intact. Skin: Skin is warm and dry he has noted lesions to his back consistent with healing shingles. - Labs CBC & Chem 7: 07/20/21 03:20 07/22/21 07:31 Labs: Abnormal Lab Results - Last 24 Hours (Table) 07/19/21 07/21/21 07/21/21 Range/Units 14:30 16:32 20:07 Sodium (137-145) mmol/L BUN (9-20) mg/dL Creatinine (0.66-1.25) mg/dL Glucose (74-99) mg/dL POC Glucose (mg/dL) 104 H 108 H (75-99) mg/dL Calcium (8.4-10.2) mg/dL RBC Folate 1,133 H (280 - 791) ng/mL 07/22/21 07/22/21 07/22/21 Range/Units 06:05 07:31 09:21 Sodium 131 L (137-145) mmol/L BUN 35 H (9-20) mg/dL Creatinine 5.76 H (0.66-1.25) mg/dL Glucose 109 H (74-99) mg/dL POC Glucose (mg/dL) 104 H 120 H (75-99) mg/dL Calcium 8.2 L (8.4-10.2) mg/dL RBC Folate (280 - 791) ng/mL Assessment and Plan Assessment: Acute shingles Acute toxic, metabolic encephalopathy, possibly virus induced, possibly med induced, patient had doubled up on lidocaine patches, outpatient, possibly acyclovir toxicity secondary to worsening renal function End-stage renal disease, on peritoneal dialysis outpatient Hyponatremia, improving Dehydration Severe protein malnutrition, secondary to Poor oral intake Anemia of chronic disease, iron deficient History of AAA, following with vascular surgery outpatient Former nicotine dependence Moderate mitral regurgitation Mild pulmonary hypertension History of Nonspecific 12 x 0.6 cm lung opacity, follow-up OP rec. Plan: Continue on current medication regime ,monitoring and symptomatic treatment. CS cytology pending. PT OT. Possible inpatient rehab. If patient requires subacute rehab, will require hemodialysis Cultures pending, antibiotics as per ID. Discharge planning in progress for possibly tomorrow. The impression and plan of care has been dictated as directed. : I performed a history and examination of this patient, discussed the same with the dictator. I agree with the dictator's note ,documented as a scribe. Any additional findings or plans will be noted.
[2021-07-22 15:28] LABS: Appearance,CSF Clear; CSF Tube Number 3; Nucleated Cells, CSF 0 u/L (0-5); Red Blood Cell,CSF 1 u/L (0-10)
--- NOTE | 2021-07-22 16:28 | PN ---
PROGRESS NOTE DATE OF SERVICE: 07/22/2021 REASON FOR FOLLOWUP: Shingles. INTERVAL HISTORY: The patient is afebrile. The patient is back to his baseline. The patient denies having any headache. Complained of feeling slightly shaky, but no chest pain, shortness of breath or cough. No abdominal pain or any worsening pain to the rash area. PHYSICAL EXAMINATION: Blood pressure 164/83 with a pulse of 82, temperature is 97.3. He is 97% on room air. GENERAL DESCRIPTION: General description is an elderly male lying in bed in no distress. RESPIRATORY SYSTEM: Unlabored breathing. Clear to auscultation anteriorly. HEART: S1, S2. Regular rate and rhythm. ABDOMEN: Soft. No tenderness. LABS: BUN of 3, creatinine is 5.76. DIAGNOSTIC IMPRESSION AND PLAN: Patient with right T9 dermatome shingles with no evidence of any secondary cellulitis. Continue acyclovir. Transition to Valtrex to finish his 7-day course of therapy. No need for any systemic antibiotic on discharge. MMODL / IJN: [id number] /
[2021-07-22 16:48] LABS: Glucose,Whole Blood 141 mg/dL (75-99)
[2021-07-22] MEDS: ACYCLOVIR SODIUM IVPB SCH (16:57)
[2021-07-22] MEDS: LACOSAMIDE 50 MG TABLET PO SCH (16:57)
[2021-07-22] MEDS: SODIUM CHLORIDE 0.9% IVPB SCH (16:57)
--- NOTE | 2021-07-22 18:09 | PCN ---
PROCEDURE NOTE PREOPERATIVE DIAGNOSIS: Acute on chronic renal failure. PROCEDURE: Removal of dialysis catheter left femoral approach. DESCRIPTION OF PROCEDURE: The patient was seen in his room. Left groins were prepped and stitches removed and dialysis catheter was removed. Pressure was held. Pressure dressing applied. Patient tolerated the procedure well. Plan is bedrest for 4 hours. MMODL / IJN: [id number] /
[2021-07-22] MEDS: DICYCLOMINE 10 MG CAP PO PRN ×2 (19:41→23:29)
[2021-07-22] MEDS: ATORVASTATIN 80 MG TAB PO SCH (19:42)
[2021-07-22 20:08] LABS: Glucose,Whole Blood 184 mg/dL (75-99)
[2021-07-22] MEDS: ONDANSETRON 4 MG/2 ML VIAL IVP PRN (23:10)
[2021-07-23] MEDS: DIALYSIS (PERIT 2.5%) 2,000 ML 50 G/2,000 ML BAG INTRAPERIT SCH ×3 (05:22→17:50)
[2021-07-23] MEDS: LACOSAMIDE 50 MG TABLET PO SCH ×2 (05:30→17:19)
[2021-07-23 06:07] LABS: Glucose,Whole Blood 173 mg/dL (75-99)
[2021-07-23] MEDS: ASPIRIN 81 MG PO SCH (08:05)
[2021-07-23] MEDS: hydrALAZINE HCL 10 MG TAB PO SCH ×3 (08:05→19:31)
--- NOTE | 2021-07-23 08:50 | P.PN ---
Subjective Patient is seen in follow-up for end-stage renal disease. Patient is maintained on peritoneal dialysis. He received 3 treatments of hemodialysis this admission due to encephalopathy possibly from acyclovir toxicity. He currently denies any chest pain or shortness of breath. He is awake and alert. Vital signs are stable. General: The patient appeared well nourished and normally developed. HEENT: Head exam is unremarkable. Neck is without jugular venous distension. LUNGS: Breath sounds decreased. HEART: Rate and Rhythm are regular. ABDOMEN: Soft, no distention. EXTREMITITES: No edema. Objective - Vital Signs Vital signs: Vital Signs Temp 97.8 F 07/23/21 08:03 Pulse 86 07/23/21 08:03 Resp 16 07/23/21 08:03 BP 138/77 07/23/21 08:03 Pulse Ox 94 L 07/23/21 08:03 Intake & Output 07/22/21 07/23/21 07/23/21 18:59 06:59 18:59 Intake Total 725 150 Balance 725 150 Weight 54 kg 61 kg Intake: Oral 725 150 Other: # Voids 0 0 - Labs CBC & Chem 7: 07/20/21 03:20 07/22/21 07:31 Labs: Abnormal Lab Results - Last 24 Hours (Table) 07/22/21 07/22/21 07/22/21 Range/Units 09:21 11:50 16:44 POC Glucose (mg/dL) 120 H 114 H 141 H (75-99) mg/dL 07/22/21 07/23/21 Range/Units 20:06 06:06 POC Glucose (mg/dL) 184 H 173 H (75-99) mg/dL Microbiology - Last 24 Hours (Table) 07/22/21 09:34 CSF Gram Stain - Preliminary Cerebral Spinal Fluid CSF Culture - Preliminary Assessment and Plan Plan: Assessment: 1. End-stage renal disease maintained on peritoneal dialysis. 2. Encephalopathy possibly from acyclovir toxicity status post 3 treatments of hemodialysis this admission. He was also using multiple lidocaine patches daily. Neurology following as well. Lumbar puncture done 07/22/2021. No seizure activity noted on EEG. No acute process noted on MRI. 3. Hyponatremia secondary to chronic kidney disease. 4. Recent shingles infection maintained on acyclovir. Dose adjusted for renal function. 5. Hypokalemia from poor intake. Replaced. Plan: Maintain current PD exchanges. Groin dialysis catheter has been removed.
[2021-07-23 11:51] LABS: Glucose,Whole Blood 102 mg/dL (75-99)
[2021-07-23] MEDS: ONDANSETRON 4 MG/2 ML VIAL IVP PRN ×2 (12:26→18:59)
--- NOTE | 2021-07-23 14:40 | P.PN ---
Subjective Progress Note Date: 07/23/21 This is a 75-year-old male patient with known peritoneal dialysis. He has no know I partner while I'm taking care of him myself on several occasions. He lives alone as his is in hospice at [facility]. Child has significant dysarthria and is on a tall this time. History was taken from the chart. Apparently he was recently seen in the office diagnosed with shingles. Given several lidocaine patches. The family brought him and after they were unable to get ahold of him. He was found down on unintelligibly speaking. Currently there is unable to determine if he has any complaints at this time. CT brain was negative except for atrophy, CT angiogram showed no pulmonary embolism. 07/20/2021: Patient is awake alert today. He is still in the emergency room due to lead placement issues. He continues to have dysarthria. Appears much improved. Apparently had a resolved quite a bit after hemodialysis. This concerns by nephrology for hemodialysis is causing some of the symptoms. He had a catheter placed and had one episode of dialysis yesterday and will have another one today. Neurology consult reevaluated him and suspicious for CVA or encephalopathy. They feel is less likely herpetic encephalopathy. Infectious disease had been consult as well. They placed him on acyclovir but adjusted the dose to his renal failure. A lumbar puncture to evaluate CSF fluid regarding the herpes is pending. Dr. Dong was consulted for placement of a dialysis catheter. Neurology also started the patient on Vimpat for tremors. Currently there are no obvious tremors with the patient. Patient was placed on aspirin, but other antiplatelets were deferred until the MRI is resulted. Currently Yevgeniy denies any chest pains, pressures, shortness breath. He indicates he had some nausea earlier today. Yevgeniy was concerned the lidocaine patches were possibly due to this. We discussed this to wearing 2 patches as opposed to 1 minute of light of this. But this seems less likely. Labs show no leukocytosis, no left shift, mild anemia, macrocytic in nature, coronary disease. He remains hyponatremic with sodium 125. Potassium 3.3. BUN is 33 with a creatinine of 6.2 for this time. TSH was normal. Vitamin B12 was normal. Toxicity of alcohol syndrome and associates was negative. Carotid Doppler shows mild to moderate plaque at the carotid bifurcation less than 50% stenosis of the proximal ICAs. 2-D echo showed mild aortic regurg, mild mitral regurgitation and mild tricuspid regurgitation. MRI of the brain without contrast, and EEG are pending still. 07/21/2021 scheduled for EEG and MRI this morning. Continues on acyclovir. Scheduled for third hemodialysis treatment today, resuming peritoneal dialysis tomorrow as per nephrology. BUN 43, creatinine 6.36 Telemetry sinus rhythm. Denies chest pain, palpitations or shortness of breath. Dysarthria appears to be resolved. Denies numbness or tingling. Maintained on renal dosed acyclovir. continues on IV fluid hydration with sodium up to 1:30. 07/22/2021 Completed lumbar puncture , tolerated procedure well. CS Cytology pending. Status post 3 sessions of hemodialysis and scheduled to resume peritoneal dialysis today . BUN 35, creatinine 5.76. Sensorium significantly improved. Denies chest pain, palpitations or shortness of breath. Maintaining O2 sats in the high 90s on room air. Afebrile. Sodium improving, currently 131. Evaluated by neurology. EEG reported no seizure activity, suggestive of generalized cerebral dysfunction seen with encephalopathy for metabolic, vascular or degenerative causes, brain MRI reported no acute process. 07/23/2021 left groin dialysis catheter removed yesterday, tolerated procedure well. Evaluated by Dr. Strange with recommendations noted. Patient converted back to peritoneal dialysis yesterday. Developed nausea vomiting during the night requiring fluid boluses 2-last one prior to 6 AM peritoneal dialysis. Staff reports midnight peritoneal dialysis held. Complains of mild abdominal discomfort. Zofran, Bentyl added to med regimen. Denies nausea /vomiting this morning. Diet intake fluctuates, consuming 25-75%. Cerebrospinal fluid pathology reported negative for significant suppurative inflammation or malignancy Objective - Vital Signs Vital signs: Vital Signs Temp 98.4 F 07/23/21 11:45 Pulse 80 07/23/21 13:20 Resp 16 07/23/21 13:20 BP 162/89 07/23/21 11:45 Pulse Ox 97 07/23/21 11:45 Intake & Output 07/22/21 07/23/21 07/23/21 18:59 06:59 18:59 Intake Total 725 150 476 Balance 725 150 476 Weight 54 kg 61 kg Intake: Oral 725 150 476 Other: # Voids 0 0 - Exam - Exam General: Sitting up in bed, alert and oriented 3, hard of hearing. Neck: The neck is supple,no JVD. Cardiovascular: S1S2 is normal,regular rate and rhythm. No murmur, rub or gallop is appreciated. Respiratory: Lungs are clear to auscultation bilaterally, respirations are non-labored, breath sounds are equal. Gastrointestinal: Soft, non-distended, non-tender abdomen without masses or organomegaly noted. no rebound or guarding present. Positive Bowel sounds. Musculoskeletal: Normal ROM, no tenderness, no pedal edema, no calf tenderness or swelling. Neurological: CN II-XII intact, strength and sensation grossly intact. Skin: Skin is warm and dry, scaly lesions consistent with healing shingles. Microbiology 07/22/21 09:34 Cerebral Spinal Fluid CSF Gram Stain - Preliminary 07/22/21 09:34 Cerebral Spinal Fluid CSF Culture - Preliminary - Labs CBC & Chem 7: 07/20/21 03:20 07/22/21 07:31 Labs: Abnormal Lab Results - Last 24 Hours (Table) 07/22/21 07/22/21 07/23/21 Range/Units 16:44 20:06 06:06 POC Glucose (mg/dL) 141 H 184 H 173 H (75-99) mg/dL 07/23/21 Range/Units 11:47 POC Glucose (mg/dL) 102 H (75-99) mg/dL Microbiology - Last 24 Hours (Table) 07/22/21 09:34 CSF Gram Stain - Preliminary Cerebral Spinal Fluid CSF Culture - Preliminary Assessment and Plan Assessment: Acute shingles Acute toxic, metabolic encephalopathy, possibly virus induced, possibly med berenice chaitanya, patient had doubled up on lidocaine patches, outpatient, suspect acyclovir toxicity secondary to worsening renal function End-stage renal disease, on peritoneal dialysis outpatient Hyponatremia, improving Dehydration Severe protein malnutrition, secondary to Poor oral intake Anemia of chronic disease, iron deficient History of AAA, following with vascular surgery outpatient Former nicotine dependence Moderate mitral regurgitation Mild pulmonary hypertension History of Nonspecific 12 x 0.6 cm lung opacity, follow-up OP rec. Plan: Continue on current medication regime ,monitoring and symptomatic treatment. CS cytology noted-reported negative for malignancy, cultures pending. As patient had a significant rough night, we will continue monitoring him overnight with plans to discharge tomorrow. Encourage oral intake. The impression and plan of care has been dictated as directed. : I performed a history and examination of this patient, discussed the same with the dictator. I agree with the dictator's note ,documented as a scribe. Any additional findings or plans will be noted.
--- NOTE | 2021-07-23 14:48 | PN ---
PROGRESS NOTE DATE OF SERVICE: 07/23/2021 REASON FOR FOLLOWUP: Herpes zoster. INTERVAL HISTORY: The patient is afebrile. The patient is breathing comfortably. The patient denies having any chest pain, shortness of breath or cough. No abdominal pain or any worsening rash to the right side of the trunk. PHYSICAL EXAMINATION: Blood pressure 152/89, pulse of 80, temperature 98.4. He is 97% on room air. GENERAL DESCRIPTION: General description is an elderly male up in the chair in no distress. RESPIRATORY SYSTEM: Unlabored breathing. Clear to auscultation anteriorly. HEART: S1, S2. Regular rate and rhythm. ABDOMEN: Soft. No tenderness. LABS: No new labs have been obtained today. DIAGNOSTIC IMPRESSION AND PLAN: Patient with a right T9 dermatome shingles, covered with acyclovir. Transition to oral Valtrex to finish his 7-day course of therapy with close outpatient followup. MMODL / IJN: [id number] /
[2021-07-23] MEDS: FLUTICASONE 50MCG/SPRAY NASAL 16GM EA NOSTRIL SCH (16:26)
[2021-07-23 16:52] LABS: Glucose,Whole Blood 130 mg/dL (75-99)
[2021-07-23] MEDS: SODIUM CHLORIDE 0.9% IVPB SCH (17:19)
[2021-07-23] MEDS: ACYCLOVIR SODIUM IVPB SCH (17:19)
[2021-07-23] MEDS: ATORVASTATIN 80 MG TAB PO SCH (19:29)
[2021-07-23] MEDS: DICYCLOMINE 10 MG CAP PO PRN (19:29)
[2021-07-23 20:03] LABS: Glucose,Whole Blood 169 mg/dL (75-99)
[2021-07-23] MEDS ORDERED: DICYCLOMINE 10 MG CAP PO PRN (22:06)
[2021-07-24] MEDS: ONDANSETRON 4 MG/2 ML VIAL IVP PRN (00:31)
[2021-07-24] MEDS: DIALYSIS (PERIT 2.5%) 2,000 ML 50 G/2,000 ML BAG INTRAPERIT SCH ×4 (00:47→12:30)
[2021-07-24] MEDS: LACOSAMIDE 50 MG TABLET PO SCH (06:10)
[2021-07-24 06:11] LABS: Glucose,Whole Blood 125 mg/dL (75-99)
[2021-07-24 08:14] LABS: Calcium 7.7 mg/dL (8.4-10.2); Magnesium 1.6 mg/dL (1.6-2.3); Potassium 3.1 mmol/L (3.5-5.1)
[2021-07-24 09:10] VITALS: RESP 20
[2021-07-24] MEDS: ASPIRIN 81 MG PO SCH (09:11)
[2021-07-24] MEDS: hydrALAZINE HCL 10 MG TAB PO SCH ×2 (09:11→16:35)
[2021-07-24] MEDS: FLUTICASONE 50MCG/SPRAY NASAL 16GM EA NOSTRIL SCH (09:17)
[2021-07-24] MEDS ORDERED: POTASSIUM CHLORIDE ER 20 MEQ TAB.ER PO STA (09:34)
--- NOTE | 2021-07-24 09:34 | P.PN ---
Subjective Patient is seen in follow-up for end-stage renal disease. Patient is maintained on peritoneal dialysis. He received 3 treatments of hemodialysis this admission due to encephalopathy possibly from acyclovir toxicity. He currently denies any chest pain or shortness of breath. He is awake and alert. No changes overnight. Vital signs are stable. General: The patient appeared well nourished and normally developed. HEENT: Head exam is unremarkable. Neck is without jugular venous distension. LUNGS: Breath sounds decreased. HEART: Rate and Rhythm are regular. ABDOMEN: Soft, no distention. EXTREMITITES: No edema. Objective - Vital Signs Vital signs: Vital Signs Temp 98.5 F 07/24/21 08:00 Pulse 90 07/24/21 08:00 Resp 20 07/24/21 08:00 BP 156/77 07/24/21 08:00 Pulse Ox 95 07/24/21 08:00 Intake & Output 07/23/21 07/24/21 07/24/21 18:59 06:59 18:59 Intake Total 476 100 Balance 476 100 Weight 63.5 kg Intake: Oral 476 100 Other: # Voids 1 0 - Labs CBC & Chem 7: 07/20/21 03:20 07/24/21 07:29 Labs: Abnormal Lab Results - Last 24 Hours (Table) 07/23/21 07/23/21 07/23/21 Range/Units 11:47 16:45 20:00 Sodium (137-145) mmol/L Potassium (3.5-5.1) mmol/L BUN (9-20) mg/dL Creatinine (0.66-1.25) mg/dL Glucose (74-99) mg/dL POC Glucose (mg/dL) 102 H 130 H 169 H (75-99) mg/dL Calcium (8.4-10.2) mg/dL 07/24/21 07/24/21 Range/Units 06:09 07:29 Sodium 132 L (137-145) mmol/L Potassium 3.1 L (3.5-5.1) mmol/L BUN 41 H (9-20) mg/dL Creatinine 5.40 H (0.66-1.25) mg/dL Glucose 163 H (74-99) mg/dL POC Glucose (mg/dL) 125 H (75-99) mg/dL Calcium 7.7 L (8.4-10.2) mg/dL Microbiology - Last 24 Hours (Table) 07/22/21 09:34 CSF Gram Stain - Preliminary Cerebral Spinal Fluid CSF Culture - Preliminary Assessment and Plan Plan: Assessment: 1. End-stage renal disease maintained on peritoneal dialysis. 2. Encephalopathy possibly from acyclovir toxicity status post 3 treatments of hemodialysis this admission. He was also using multiple lidocaine patches maral y. Neurology following as well. Lumbar puncture done 07/22/2021. No seizure activity noted on EEG. No acute process noted on MRI. 3. Hyponatremia secondary to chronic kidney disease. Stable. 4. Recent shingles infection maintained on acyclovir. Dose adjusted for renal function. 5. Hypokalemia from poor intake and PD losses. 6. Mild hypomagnesemia. Plan: Maintain current PD exchanges. Groin dialysis catheter has been removed. Replace potassium and magnesium.
--- NOTE | 2021-07-24 10:04 | P.PN ---
Subjective Progress Note Date: 07/23/21 07/23/2021: Patient states that he has "little upset stomach". Denies any numbness tingling focal weakness. Patient is laying comfortably in the bed. Denies headache. No dizziness. No visual symptoms. 07/21/2021: Patient initially seen by Dr. Wily Cuenca for consultation, please refer to his note for details. Patient is a 75-year-old male with history of end-stage renal disease on peritoneal dialysis, has recently suffered from herpes zoster involving T6 to T8 dermatomes, on acyclovir, has developed acute dysarthria. Patient was not a candidate for TPA. Patient is currently getting a toenail dialysis. Patient denies any headache. Denies any numbness or tingling. No speech difficulty. No symptoms. Looks very comfortable. Objective - Vital Signs Vital signs: Vital Signs Temp 98.5 F 07/24/21 08:00 Pulse 90 07/24/21 08:00 Resp 20 07/24/21 08:00 BP 156/77 07/24/21 08:00 Pulse Ox 95 07/24/21 08:00 Intake & Output 07/23/21 07/24/21 07/24/21 18:59 06:59 18:59 Intake Total 476 100 Balance 476 100 Weight 63.5 kg Intake: Oral 476 100 Other: # Voids 1 0 - Exam GENERAL: The patient is lying in bed and is not in acute distress. NEUROLOGICAL: Higher mental function: The patient is awake, alert, oriented to self and time. Patient states that he is in [facility] in [place]. He knows it is June 2021. He is able to name objects appropriately (knuckles, earlobe). Patient can repeat without any problem. Patient is following commands (closing eyes, sticking tongue out, and participating with all examination). No aphasia or neglect. Cranial nerves: The pupils are round, equal and reactive to light. EOM: Intact and no nystagmus. No facial weakness. No dysarthria.. Is hard of hearing (old per family). Motor: Gait is deferred. The strength is normal in arms and legs distally and proximally except right hip flexion which is 5-, otherwise all normal. Normal tone and bulk. Sensation: Normal throughout. Reflexes (right/left): 1+ throughout. Plantars are mute bilaterally. - Labs CBC & Chem 7: 07/20/21 03:20 07/24/21 07:29 Labs: Abnormal Lab Results - Last 24 Hours (Table) 07/23/21 07/23/21 07/23/21 Range/Units 11:47 16:45 20:00 Sodium (137-145) mmol/L Potassium (3.5-5.1) mmol/L BUN (9-20) mg/dL Creatinine (0.66-1.25) mg/dL Glucose (74-99) mg/dL POC Glucose (mg/dL) 102 H 130 H 169 H (75-99) mg/dL Calcium (8.4-10.2) mg/dL 07/24/21 07/24/21 Range/Units 06:09 07:29 Sodium 132 L (137-145) mmol/L Potassium 3.1 L (3.5-5.1) mmol/L BUN 41 H (9-20) mg/dL Creatinine 5.40 H (0.66-1.25) mg/dL Glucose 163 H (74-99) mg/dL POC Glucose (mg/dL) 125 H (75-99) mg/dL Calcium 7.7 L (8.4-10.2) mg/dL Microbiology - Last 24 Hours (Table) 07/22/21 09:34 CSF Gram Stain - Preliminary Cerebral Spinal Fluid CSF Culture - Preliminary Assessment and Plan Assessment: This is a 75-year-old gentleman with recent diagnosis of shingles right T7 to T8 dermatome of abdomen that presents to ED on 07/19/2021 for altered mental status and acute dysarthria. Current neurological examination is normal. NIH stroke scale is 0. * Altered mental status with significant dysarthria, now resolved. No evidence of stroke on the MRI. Possible mild encephalopathy versus TIA. * Metabolic tremors, improved. * Hyponatremia (126) and it is felt due to excess fluid intake--currently 132 * Herpes zoster over the right T7 to T8 dermatome and is on acyclovir, ID following. * End-stage renal disease with bilateral renal stents on the peritoneal dialysis * Hypertension and seem to be elevated (per family it labile at home) * History of pancreatitis (per family due to medication use) Plan: * Patient is doing very well. Examination is nonfocal. * Continue home medication of aspirin 81 mg and Lipitor 80 mg daily at bedtime for secondary stroke prophylaxis. No indication for dual antiplatelet medication because MRI was negative. * MRI of the brain without contrast revealed no acute intracranial process, mild to moderate degenerative and moderate nonspecific white matter changes, most typical of remote white matter ischemia. * EEG was abnormal due to mild background slowing with some disorganization. This is suggestive of generalized cerebral dysfunction as can be seen with encephalopathy of metabolic, vascular or degenerative causes. No epileptiform activity was seen. We will discontinue Vimpat. * Telemetry monitoring showing sinus rhythm. No A. fib. * Patient currently on IV acyclovir 250 mg every 24 hours. ID managing. * Nephrology is on board. * We'll defer the rest of medical management to primary team. * Neurology will sign off. Please reconsult neurology if any concerns. WORK-UP: CT of the head is reported as cerebral atrophy. No change compared to old exam. No acute abnormality. CT angiography of the head and neck was reported as mild plaque formation at the carotid artery bifurcation without evidence of hemodynamic stenosis. No significant intercranial and angiographic abnormality. EKG is reported as sinus rhythm with first-degree AV block with premature atrial complexes. Left axis deviation. The right bundle branch block. Carotid duplex is reported as mild to moderate plaque at the carotid bifurcation was less than 50% stenosis of the proximal ICAs. 2Decho was reported as left ventricle systolic function is low normal with ejection fraction of 55%. Mild concentric left ventricular hypertrophy. Left atrial size is normal. AST of 22 ALT of 16. Calcium is 9.1 which is within normal limits Lipid panel is a triglyceride 158, cholesterol is 139, LDL is 71, and HDL 36. Lipase is 85 which is within normal limits. Urine drug screen is the serum alcohol was less than 10, acetaminophen is less than 10 and the sessile it is less than 1.0. Vitamin B12 is 482 which is considered within normal limits. Serum folate level is 12 which is within normal limits. TSH is 3.640 which is considered within normal limits.
[2021-07-24 11:53] LABS: Glucose,Whole Blood 124 mg/dL (75-99)
[2021-07-24] MEDS: MAGNESIUM SULFATE-D5W PMX 1 GM in DEXTROSE/WATER 1 100ML.BAG IVPB SCH ×2 (12:29→14:03)
[2021-07-24 12:32] VITALS: BP 158/79; PULSE 88; TEMP 99.5
[2021-07-24 15:38] LABS: Magnesium 2.4 mg/dL (1.6-2.3); Potassium 3.2 mmol/L (3.5-5.1)
[2021-07-24] MEDS ORDERED: POTASSIUM BICARBONATE/CIT AC 20 MEQ TABLET.EFF PO ONE (16:30)
[2021-07-24 16:33] LABS: Glucose,Whole Blood 124 mg/dL (75-99)
--- NOTE | 2021-07-24 17:07 | PN ---
PROGRESS NOTE DATE OF SERVICE: 07/24/2021 REASON FOR FOLLOWUP: Right T9 dermatome infection. INTERVAL HISTORY: The patient is afebrile. The patient is currently breathing comfortably. Denies having any worsening pain to the right trunk area. The rash has decreased in intensity. No new rash. No chest pain, shortness of breath or cough. No abdominal pain or diarrhea. PHYSICAL EXAMINATION: Blood pressure 158/79 with a pulse of 80, temperature 99.5. He is 94% on room air. GENERAL DESCRIPTION: General description is an elderly male lying in bed in no distress. RESPIRATORY SYSTEM: Unlabored breathing. Clear to auscultation anteriorly. HEART: S1, S2. Regular rate and rhythm. ABDOMEN: Soft. No tenderness. Right trunk rash has decreased in intensity. No new rash or redness. LABS: BUN of 41, creatinine 5.40. DIAGNOSTIC IMPRESSION AND PLAN: Patient with right T9 dermatome shingles. No worsening. Improvement on acyclovir. Transition to oral Valtrex to finish a 7-day course of therapy and close outpatient followup. MMODL / IJN: [id number] /
--- NOTE | 2021-07-25 11:28 | P.DS ---
Providers Date of admission: 07/18/21 21:52 Expected date of discharge: 07/24/21 Attending physician: Shaq Starr Consults: 07/18/21 21:54 Consult Physician Routine Consulting Provider: Wily Cuenca Consult Reason/Comments: cva, no tpa Do you want consulting provider notified?: Yes, Notify in am Consult Physician Routine Consulting Provider: Esme Jung Consult Reason/Comments: Peritoneal dialysis Do you want consulting provider notified?: Yes 07/19/21 13:29 Consult Physician Urgent Consulting Provider: Edita Florence Consult Reason/Comments: Recent shingles with encephalopathy. ?Consider Lumbar Puncture Do you want consulting provider notified?: Yes 07/19/21 15:10 Consult to Anesthesia Routine Consulting Provider: Anesthesia,Services Consult Reason/Comments: LP/CSF 07/22/21 09:15 Consult Physician Routine Consulting Provider: Matthias Morales Consult Reason/Comments: eval for IPR Do you want consulting provider notified?: Yes Primary care physician: [facility] Course: Final Diagnoses: Acute shingles Acute toxic, metabolic encephalopathy, possibly virus induced, possibly med induced, patient had doubled up on lidocaine patches, outpatient, suspect acyclovir toxicity secondary to worsening renal function -CS cytology reported negative for malignancy End-stage renal disease, on peritoneal dialysis outpatient Hyponatremia, improving Dehydration Severe protein malnutrition, secondary to Poor oral intake Anemia of chronic disease, iron deficient History of AAA, following with vascular surgery outpatient Former nicotine dependence Moderate mitral regurgitation Mild pulmonary hypertension History of Nonspecific 12 x 0.6 cm lung opacity, follow-up OP rec. Hospital course:This is a 75-year-old male patient with known peritoneal dialysis. He has no know I partner while I'm taking care of him myself on several occasions. He lives alone as his is in hospice at [facility]. Child has significant dysarthria and is on a tall this time. History was taken from the chart. Apparently he was recently seen in the office diagnosed with shingles. Given several lidocaine patches. The family brought him and after t hey were unable to get ahold of him. He was found down on unintelligibly speaking. Currently there is unable to determine if he has any complaints at this time. CT brain was negative except for atrophy, CT angiogram showed no pulmonary embolism. 07/20/2021: Patient is awake alert today. He is still in the emergency room due to lead placement issues. He continues to have dysarthria. Appears much improved. Apparently had a resolved quite a bit after hemodialysis. This concerns by nephrology for hemodialysis is causing some of the symptoms. He had a catheter placed and had one episode of dialysis yesterday and will have another one today. Neurology consult reevaluated him and suspicious for CVA or encephalopathy. They feel is less likely herpetic encephalopathy. Infectious disease had been consult as well. They placed him on acyclovir but adjusted the dose to his renal failure. A lumbar puncture to evaluate CSF fluid regarding the herpes is pending. Dr. Dong was consulted for placement of a dialysis catheter. Neurology also started the patient on Vimpat for tremors. Currently there are no obvious tremors with the patient. Patient was placed on aspirin, but other antiplatelets were deferred until the MRI is resulted. Currently Yevgeniy denies any chest pains, pressures, shortness breath. He indicates he had some nausea earlier today. Yevgeniy was concerned the lidocaine patches were possibly due to this. We discussed this to wearing 2 patches as opposed to 1 minute of light of this. But this seems less likely. Labs show no leukocytosis, no left shift, mild anemia, macrocytic in nature, coronary disease. He remains hyponatremic with sodium 125. Potassium 3.3. BUN is 33 with a creatinine of 6.2 for this time. TSH was normal. Vitamin B12 was normal. Toxicity of alcohol syndrome and associates was negative. Carotid Doppler shows mild to moderate plaque at the carotid bifurcation less than 50% stenosis of the proximal ICAs. 2-D echo showed mild aortic regurg, mild mitral regurgitation and mild tricuspid regurgitation. MRI of the brain without contrast, and EEG are pending still. 07/21/2021 scheduled for EEG and MRI this morning. Continues on acyclovir. Scheduled for third hemodialysis treatment today, resuming peritoneal dialysis tomorrow as per nephrology. BUN 43, creatinine 6.36 Telemetry sinus rhythm. Denies chest pain, palpitations or shortness of breath. Dysarthria appears to be resolved. Denies numbness or tingling. Maintained on renal dosed acyclovir. continues on IV fluid hydration with sodium up to 1:30. 07/22/2021 Completed lumbar puncture , tolerated procedure well. CS Cytology pending. Status post 3 sessions of hemodialysis and scheduled to resume peritoneal dialysis today . BUN 35, creatinine 5.76. Sensorium significantly improved. Denies chest pain, palpitations or shortness of breath. Maintaining O2 sats in the high 90s on room air. Afebrile. Sodium improving, currently 131. Evaluated by neurology. EEG reported no seizure activity, suggestive of generalized cerebral dysfunction seen with encephalopathy for metabolic, vascular or degenerative causes, brain MRI reported no acute process. 07/23/2021 left groin dialysis catheter removed yesterday, tolerated procedure well. Evaluated by Dr. Strange with recommendations noted. Patient converted back to peritoneal dialysis yesterday. Developed nausea vomiting during the night requiring fluid boluses 2-last one prior to 6 AM peritoneal dialysis. Staff reports midnight peritoneal dialysis held. Complains of mild abdominal discomfort. Zofran, Bentyl added to med regimen. Denies nausea /vomiting this morning. Diet intake fluctuates, consuming 25-75%. Cerebrospinal fluid pathology reported negative for significant suppurative inflammation or saud gnancy Significant clinical improvement. Patient will be discharged home pending final DC recommendations and clearance per infectious disease, in a stable condition with guarded prognosis. Microbiology 07/22/21 09:34 Cerebral Spinal Fluid CSF Gram Stain - Preliminary 07/22/21 09:34 Cerebral Spinal Fluid CSF Culture - Preliminary The impression and plan of care has been dictated as directed. : I performed a history and examination of this patient, discussed the same with the dictator. I agree with the dictator's note ,documented as a scribe. Any additional findings or plans will be noted. Patient Condition at Discharge: Stable Plan - Discharge Summary Discharge Rx Participant: Yes New Discharge Prescriptions: New Bisoprol/Hydrochlorothiazide [Ziac 2.5-6.25 MG] 1 each PO DAILY #30 tab hydrALAZINE HCL [Apresoline] 10 mg PO TID #90 tab Fluticasone Nasal [place] [Flonase Nasal [place]] 2 spray EA NOSTRIL DAILY gm Continue Atorvastatin [Lipitor] 80 mg PO HS Calcium Acetate [PhosLo] 667 mg PO AC-TID Famotidine [Pepcid] 20 mg PO DAILY Potassium Chloride 10 meq PO DAILY Sucralfate [Carafate] 1 gm PO DAILY Lidocaine [Aspercreme Patch] 1 patch TOPICAL DAILY Heparin (Unknown Strength) 1 dose IV HS dronabinoL [Marinol] 10 mg PO BID Aspirin 81 mg PO HS Discontinued Midodrine HCl 5 mg PO BID PRN PRN Reason: BP LESS THAN 110 valACYclovir HCL [Valtrex] 1,000 mg PO TID amLODIPine [Norvasc] 5 mg PO BID Discharge Medication List Atorvastatin [Lipitor] 80 mg PO HS 01/12/19 [History] Calcium Acetate [PhosLo] 667 mg PO AC-TID 08/28/20 [History] Aspirin 81 mg PO HS 04/18/21 [History] Famotidine [Pepcid] 20 mg PO DAILY 04/18/21 [History] Potassium Chloride 10 meq PO DAILY 04/18/21 [History] Sucralfate [Carafate] 1 gm PO DAILY 04/25/21 [History] Heparin (Unknown Strength) 1 dose IV HS 07/18/21 [History] Lidocaine [Aspercreme Patch] 1 patch TOPICAL DAILY 07/18/21 [History] dronabinoL [Marinol] 10 mg PO BID 07/19/21 [History] Bisoprol/Hydrochlorothiazide [Ziac 2.5-6.25 MG] 1 each PO DAILY #30 tab 07/24/21 [Rx] Fluticasone Nasal [place] [Flonase Nasal [place]] 2 spray EA NOSTRIL DAILY gm 07/24/21 [Rx] hydrALAZINE HCL [Apresoline] 10 mg PO TID #90 tab 07/24/21 [Rx] Follow up Appointment(s)/Referral(s): [facility], [NON-STAFF] - [facility] [facility] [NON-STAFF] - Sebas Garza Jr, DO [Primary Care Provider] - 07/25/21 10:30 am Ambulatory/Diagnostic Orders: Basic Metabolic Panel [LAB.AMB] Time Frame: 3 Days, Location: None Selected Patient Instructions/Handouts: Shingles (DC), Dialysis Diet (DC), End Stage Kidney Disease (DC) Activity/Diet/Wound Care/Special Instructions: Contact [place] [facility] to set up Meals on Wheels Peritoneal dialysis as per nephrology Pending final DC recommendations and clearance per ID Discharge/Stand Alone Forms: Anes Pain/[place] Instructions Discharge Disposition: HOME WITH HOME HEALTH SERVICES
== END 2021-07-24 17:03 | disposition home health service (06) | DRG 917 ==
LOC: EC 17:55 → 3SCARD 21:52
PROVIDERS: ADMIT Family Medicine; ATTEND Family Medicine
PROC: 5A1D70Z Performance of Urinary Filtration, Intermittent, Less than 6 Hours Per Day (ICD-10-PCS; principal; 2021-07-19)
PROC: 06HM33Z Insertion of Infusion Device into Right Femoral Vein, Percutaneous Approach (ICD-10-PCS; 2021-07-19)
PROC: 009U3ZX Drainage of Spinal Canal, Percutaneous Approach, Diagnostic (ICD-10-PCS; 2021-07-22)
PROC: 06PYX3Z Removal of Infusion Device from Lower Vein, External Approach (ICD-10-PCS; 2021-07-22)
DX: T37.5X1A Poisoning by antiviral drugs, accidental (unintentional), initial encounter (principal); G92 Toxic encephalopathy; E43 Unspecified severe protein-calorie malnutrition; N18.6 End stage renal disease; E87.1 Hypo-osmolality and hyponatremia; I12.0 Hypertensive chronic kidney disease with stage 5 chronic kidney disease or end stage renal disease; N17.9 Acute kidney failure, unspecified; B02.9 Zoster without complications; D53.9 Nutritional anemia, unspecified; D63.1 Anemia in chronic kidney disease; E83.42 Hypomagnesemia; E86.0 Dehydration; E87.6 Hypokalemia; E87.8 Other disorders of electrolyte and fluid balance, not elsewhere classified; H91.90 Unspecified hearing loss, unspecified ear; I27.20 Pulmonary hypertension, unspecified; I08.1 Rheumatic disorders of both mitral and tricuspid valves; I44.0 Atrioventricular block, first degree; I45.10 Unspecified right bundle-branch block; Z99.2 Dependence on renal dialysis; I65.23 Occlusion and stenosis of bilateral carotid arteries; I71.4 Abdominal aortic aneurysm, without rupture; I49.1 Atrial premature depolarization; R47.1 Dysarthria and anarthria; K21.9 Gastro-esophageal reflux disease without esophagitis; Z79.82 Long term (current) use of aspirin; Z79.899 Other long term (current) drug therapy; Z80.0 Family history of malignant neoplasm of digestive organs; Z82.49 Family history of ischemic heart disease and other diseases of the circulatory system; Z86.19 Personal history of other infectious and parasitic diseases; Z86.79 Personal history of other diseases of the circulatory system; Z87.19 Personal history of other diseases of the digestive system; Z87.891 Personal history of nicotine dependence; Z60.2 Problems related to living alone; Z82.5 Family history of asthma and other chronic lower respiratory diseases; Z86.010 Personal history of colon polyps; Z90.49 Acquired absence of other specified parts of digestive tract; Z98.890 Other specified postprocedural states; R25.1 Tremor, unspecified
CPT/HCPCS: 36415; 62270; 70450; 70496; 70498; 70551; 71045; 80048; 80053; 80061; 80143; 80179; 80320; 82607; 82746; 82747; 82945; 83605; 83690; 83735; 83930; 84132; 84157; 84443; 84484; 85025; 85610; 86706; 87070; 87205; 87340; 87798; 88108; 89050; 90935; 93005; 93306; 93880; 95816; 99211; 99285

== ENCOUNTER → 2021-09-08 | Outpatient (CLI) | payer MEDICARE | END | disposition home or self-care (01) | LOC: LABT 12:35 | PROVIDERS: ATTEND Internal Medicine | DX: E87.6 Hypokalemia (principal) | CPT/HCPCS: 84132 ==

== ENCOUNTER 2021-10-19 11:46 | Inpatient (IN) | payer MEDICARE ==
[2021-10-19] MEDS ORDERED: SODIUM CHLORIDE 0.9% 1,000 ML IV STA ×2 (12:26→13:19)
[2021-10-19] MEDS ORDERED: ONDANSETRON 4 MG/2 ML VIAL IVP STA (12:27)
--- NOTE | 2021-10-19 12:46 | ED ---
General Adult HPI - General Chief complaint: Shortness of Breath Stated complaint: Vomiting Time Seen by Provider: 10/19/21 11:54 Source: patient, RN notes reviewed, old records reviewed Mode of arrival: ambulatory Limitations: no limitations - History of Present Illness Initial comments: Ration is a 76-year-old male with past medical history remarkable for hypotension that is recurrent, peritoneal dialysis, AAA repair who presents emergency Department complaining of a multi week history of worsening exertional dyspnea. Patient also endorses several episodes of nonbilious nonbloody emesis over the last 4 or 5 days. Denies any shortness of breath at rest. Denies any history of blood clots. Denies any chest pain, peripheral edema. He was vac cinated for COVID-19 and has no known sick contacts and denies any cough, fevers, chills. Endorses occasional diarrhea. Stool is nonbloody. Patient otherwise has no acute complaints at this time. He states over the last week he did miss one day of peritoneal dialysis on Wednesday but otherwise has not missed any. He has no other acute complaints at this time. He presents to the emergency department over concern for his recurrent exertional dyspnea over the last 1 month or more. - Related Data Home Medications Medication Instructions Recorded Confirmed Atorvastatin [Lipitor] 80 mg PO HS 01/12/19 10/19/21 Calcium Acetate [PhosLo] 667 mg PO AC-TID 08/28/20 10/19/21 Aspirin 81 mg PO HS 04/18/21 10/19/21 Famotidine [Pepcid] 20 mg PO HS PRN 04/18/21 10/19/21 dronabinoL [Marinol] 10 mg PO BID 07/19/21 10/19/21 Bisoprol/Hydrochlorothiazide [Ziac 1 tab PO DAILY 09/15/21 10/19/21 2.5-6.25 MG] Citalopram Hydrobromide [CeleXA] 20 mg PO DAILY 10/19/21 10/19/21 Diphenox-Atrop 2.5-0.025 mg 1 tab PO TID 10/19/21 10/19/21 [Lomotil] Magnesium Oxide 400 mg PO BID 10/19/21 10/19/21 Metoprolol Tartrate [Lopressor] 12.5 mg PO BID 10/19/21 10/19/21 Midodrine HCl [ProAmatine] 10 mg PO TID PRN 10/19/21 10/19/21 Previous Rx's Medication Instructions Recorded Potassium Chloride ER [K-Dur 20] 20 meq PO DAILY #30 tablet 09/18/21 Allergies Allergy/AdvReac Type Severity Reaction Status Date / Time heparin Allergy Severe HIT/LARRY-see Verified 10/19/21 13:21 comment cyclobenzaprine Allergy Rash/Hives Verified 10/19/21 13:21 [From Flexeril] Review of Systems ROS Statement: Those systems with pertinent positive or pertinent negative responses have been documented in the HPI. Review of Systems: CONST: Denies fever EYES: Denies blurry vision ENT: Denies nasal congestion C/V: Denies Chest pain RESP: Endorses exertional shortness of breath GI: Denies abdominal pain : Denies dysuria SKIN: Denies rash. MSK: Denies joint pain. NEURO: Denies headache ROS Other: All systems not noted in ROS Statement are negative. Past Medical History Past Medical History: GERD/Reflux, Hearing Disorder / Deafness, Hyperlipidemia, Hypertension, Renal Disease Additional Past Medical History / Comment(s): AAA. Peritoneal dialysis port daily. Pancreatitis 12/2020. Colon polyps. History of Any Multi-Drug Resistant Organisms: None Reported Past Surgical History: Cholecystectomy, Hernia Repair, Orthopedic Surgery Additional Past Surgical History / Comment(s): AAA stent placement, bilat inguinal hernia repair, peritoneal dialysis placement. ORIF Rt hand w/ pins. EGD, Colonoscopy. Past Anesthesia/Blood Transfusion Reactions: No Reported Reaction Past Psychological History: Depression Smoking Status: Former smoker Past Alcohol Use History: None Reported Past Drug Use History: None Reported - Past Family History Sister(s) Family Medical History: Cancer, Myocardial Infarction ([place]) Additional Family Medical History / Comment(s): esophageal ca Brother(s) Family Medical History: Pneumonia General Exam - General Exam Comments Initial Comments: General: Appears in no acute distress. HEAD: Normal with no signs of head trauma. EYES: PERRLA, EOMI, conjunctiva normal, no discharge. ENT: Hearing grossly intact, normal oropharynx. RESPIRATORY: Clear breath sounds bilaterally. No wheezes, rales, or rhonchi. C/V: Regular rate and rhythm. S1 and S2 auscultated. No peripheral edema. Peripheral pulses are 2+ and intact throughout. Patient is mildly hypotensive to 90/60, which patient states is typical for him. ABD: Abd is soft, nontender, nondistended. Peritoneal dialysis catheter is adequately trains and there is no surrounding erythema or concerned for cellulitis. EXT: Normal range of motion, no obvious deformity SKIN: No rashes or lesions observed on exposed skin. NEURO: Alert and oriented 4. Limitations: no limitations Course Vital Signs 10/19/21 10/19/21 10/19/21 11:55 13:50 14:37 Temperature 98.0 F Pulse Rate 64 60 54 L Respiratory 18 17 17 Rate Blood Pressure 90/60 119/74 135/77 O2 Sat by Pulse 98 98 97 Oximetry 10/19/21 10/19/21 10/19/21 14:42 16:00 17:12 Temperature Pulse Rate 57 L Respiratory 17 Rate Blood Pressure 120/85 134/71 114/71 O2 Sat by Pulse 98 Oximetry 10/19/21 10/19/21 10/19/21 17:19 18:00 20:47 Temperature 98.1 F Pulse Rate 58 L 57 L 57 L Respiratory 44 H 16 18 Rate Blood Pressure 121/72 126/71 124/70 O2 Sat by Pulse 99 96 97 Oximetry Medical Decision Making - Medical Decision Making Based on the patient's presentation and physical exam, he presents hypotensive with a history of recurrent hypotension complaining of shortness of breath is exertional. This been ongoing for multiple weeks. He has no other acute complaints at this time. He does state that the shortness breath has been worse. I cannot rule out cardiac etiology at this time, we will obtain cardiac laboratory studies in addition to basic labs. Chest x-ray, Covid swab will be obtained. EKG will be obtained. Patient does not perk out. Well's score for PE is also low at 0, and therefore we will obtain a screening d-dimer. Patient was in agreement this plan. He'll be connected to continuous cardiac monitoring while here in the department. Patient's EKG shows no signs of acute ischemia. Chest x-ray revealed no acute cardiopulmonary process. Laboratory studies are remarkable for a mild leukocytosis of 1.8. Patient's d-dimer is elevated at 27.8. Patient is h yponatremic to 130 and hypochloremic to 90. He has an elevated BUN/creatinine the setting of ESRD on hemodialysis. Patient has an initial lactic acidosis of 3.5 which cleared with 1 L fluid bolus. Blood cultures were obtained and sent. Troponin is elevated in his typical range at 0.051 but repeat will be obtained. BNP is 28,000. Covid is negative. On reevaluation I did discuss with the patient that I would like to obtain a CTP throughout the possibility of pulmonary embolus and. He was in agreement this plan. Patient's CT PE revealed no signs of pulmonary embolism. However there was a finding of a limited dissection of the posterior wall the mid descending thoracic aorta. This is new with comparison to old exam. I discussed with the patient that he will be admitted to the hospital. He was in agreement this plan. I explained to him what a aortic dissection is. His vital signs show that his heart rate is under control at less than 60 bpm and blood pressure remains in the 120s. He does not require as below at this time. I spoke with the vascular surgeon on-call, Dr. Mix who was in agreement this plan. She'll be consulted. I also consulted cardiology and spoke with Dr. Vora over the phone who is in agreement this plan. Heparin will be held and he will follow-up on the troponins. I consulted nephrology Dr. Jung to evaluate the morning as patient will require peritoneal dialysis. I spoke with the patient regarding this and he was in agreement with this plan. He'll be admitted to a telemetry bed in serious condition. I spoke with the attending physician, Dr. Starr who accepted the patient. - Lab Data Result diagrams: 10/19/21 12:51 10/19/21 12:51 Lab Results 10/19/21 10/19/21 10/19/21 Range/Units 12:51 12:51 12:51 WBC 11.8 H (3.8-10.6) k/uL RBC 4.26 L (4.30-5.90) m/uL Hgb 14.4 (13.0-17.5) gm/dL Hct 44.7 (39.0-53.0) % MCV 104.9 H D (80.0-100.0) fL MCH 33.9 (25.0-35.0) pg MCHC 32.3 (31.0-37.0) g/dL RDW 13.7 (11.5-15.5) % Plt Count 120 L (150-450) k/uL MPV 8.9 Neutrophils % 86 % Lymphocytes % 8 % Monocytes % 5 % Eosinophils % 0 % Basophils % 0 % Neutrophils # 10.2 H (1.3-7.7) k/uL Lymphocytes # 0.9 L (1.0-4.8) k/uL Monocytes # 0.6 (0-1.0) k/uL Eosinophils # 0.0 (0-0.7) k/uL Basophils # 0.0 (0-0.2) k/uL Macrocytosis Moderate PT 12.0 (9.0-12.0) sec INR 1.1 (<1.2) APTT 25.4 (22.0-30.0) sec D-Dimer 27.86 H (<0.60) mg/L FEU Sodium 130 L (137-145) mmol/L Potassium 4.1 (3.5-5.1) mmol/L Chloride 90 L (98-107) mmol/L Carbon Dioxide 28 (22-30) mmol/L Anion Gap 12 mmol/L BUN 28 H (9-20) mg/dL Creatinine 7.81 H* (0.66-1.25) mg/dL Est GFR (CKD-EPI)AfAm 7 (>60 ml/min/1.73 sqM) Est GFR (CKD-EPI)NonAf 6 (>60 ml/min/1.73 sqM) Glucose 125 H (74-99) mg/dL Lactic Ac Sepsis Rflx Plasma Lactic Acid Victor Hugo (0.7-2.0) mmol/L Calcium 9.1 (8.4-10.2) mg/dL Magnesium 2.9 H (1.6-2.3) mg/dL Total Bilirubin 0.3 (0.2-1.3) mg/dL AST 31 (17-59) U/L ALT 30 (4-49) U/L Alkaline Phosphatase 99 (38-126) U/L Troponin I (0.000-0.034) ng/mL NT-Pro-B Natriuret Pep pg/mL Total Protein 6.1 L (6.3-8.2) g/dL Albumin 3.3 L (3.5-5.0) g/dL Coronavirus (PCR) (Not Detectd) 10/19/21 10/19/21 10/19/21 Range/Units 12:51 12:51 12:51 WBC (3.8-10.6) k/uL RBC (4.30-5.90) m/uL Hgb (13.0-17.5) gm/dL Hct (39.0-53.0) % MCV (80.0-100.0) fL MCH (25.0-35.0) pg MCHC (31.0-37.0) g/dL RDW (11.5-15.5) % Plt Count (150-450) k/uL MPV Neutrophils % % Lymphocytes % % Monocytes % % Eosinophils % % Basophils % % Neutrophils # (1.3-7.7) k/uL Lymphocytes # (1.0-4.8) k/uL Monocytes # (0-1.0) k/uL Eosinophils # (0-0.7) k/uL Basophils # (0-0.2) k/uL Macrocytosis PT (9.0-12.0) sec INR (<1.2) APTT (22.0-30.0) sec D-Dimer (<0.60) mg/L FEU Sodium (137-145) mmol/L Potassium (3.5-5.1) mmol/L Chloride (98-107) mmol/L Carbon Dioxide (22-30) mmol/L Anion Gap mmol/L BUN (9-20) mg/dL Creatinine (0.66-1.25) mg/dL Est GFR (CKD-EPI)AfAm (>60 ml/min/1.73 sqM) Est GFR (CKD-EPI)NonAf (>60 ml/min/1.73 sqM) Glucose (74-99) mg/dL Lactic Ac Sepsis Rflx Plasma Lactic Acid Victor Hugo 3.5 H* (0.7-2.0) mmol/L Calcium (8.4-10.2) mg/dL Magnesium (1.6-2.3) mg/dL Total Bilirubin (0.2-1.3) mg/dL AST (17-59) U/L ALT (4-49) U/L Alkaline Phosphatase (38-126) U/L Troponin I 0.051 H* (0.000-0.034) ng/mL NT-Pro-B Natriuret Pep 98483 pg/mL Total Protein (6.3-8.2) g/dL Albumin (3.5-5.0) g/dL Coronavirus (PCR) (Not Detectd) 10/19/21 10/19/21 Range/Units 12:51 13:17 WBC (3.8-10.6) k/uL RBC (4.30-5.90) m/uL Hgb (13.0-17.5) gm/dL Hct (39.0-53.0) % MCV (80.0-100.0) fL MCH (25.0-35.0) pg MCHC (31.0-37.0) g/dL RDW (11.5-15.5) % Plt Count (150-450) k/uL MPV Neutrophils % % Lymphocytes % % Monocytes % % Eosinophils % % Basophils % % Neutrophils # (1.3-7.7) k/uL Lymphocytes # (1.0-4.8) k/uL Monocytes # (0-1.0) k/uL Eosinophils # (0-0.7) k/uL Basophils # (0-0.2) k/uL Macrocytosis PT (9.0-12.0) sec INR (<1.2) APTT (22.0-30.0) sec D-Dimer (<0.60) mg/L FEU Sodium (137-145) mmol/L Potassium (3.5-5.1) mmol/L Chloride (98-107) mmol/L Carbon Dioxide (22-30) mmol/L Anion Gap mmol/L BUN (9-20) mg/dL Creatinine (0.66-1.25) mg/dL Est GFR (CKD-EPI)AfAm (>60 ml/min/1.73 sqM) Est GFR (CKD-EPI)NonAf (>60 ml/min/1.73 sqM) Glucose (74-99) mg/dL Lactic Ac Sepsis Rflx Y Plasma Lactic Acid Victor Hugo (0.7-2.0) mmol/L Calcium (8.4-10.2) mg/dL Magnesium (1.6-2.3) mg/dL Total Bilirubin (0.2-1.3) mg/dL AST (17-59) U/L ALT (4-49) U/L Alkaline Phosphatase (38-126) U/L Troponin I (0.000-0.034) ng/mL NT-Pro-B Natriuret Pep pg/mL Total Protein (6.3-8.2) g/dL Albumin (3.5-5.0) g/dL Coronavirus (PCR) Not Detected (Not Detectd) - EKG Data -: EKG Interpreted by Me EKG Comments: 12-lead Electrocardiogram Interpretation Note EKG was reviewed and interpreted by myself. 12-lead ECG performed at 1254 is interpreted by me as revealing sinus bradycardia at a rate of 56 beats per minute. Left axis deviation. OK interval is 170 ms, QRS duration is 116 ms, QTc is 486 seconds.. There is chronic T-wave inversions in lead V3 and V4 and V2 which are seen on prior EKGs. No other acute ST segment or T-wave abnormalities.. R wave progression across the precordium was satisfactory. By my interpretation this EKG is non-diagnostic for acute ischemia. It appears similar to prior EKGs. Disposition Clinical Impression: Aortic dissection, Exertional dyspnea, Elevated troponin, Elevated d-dimer, ESRD on peritoneal dialysis, History of AAA (abdominal aortic aneurysm) repair, Hyponatremia Disposition: ADMITTED IP TO THIS HOSP Condition: Serious
[2021-10-19 13:02] LABS: Basophils % (A) 0 %; Eosinophils % (A) 0 %; HCT 44.7 % (39.0-53.0); HGB 14.4 gm/dL (13.0-17.5); Lymphocytes # (A) 0.9 k/uL (1.0-4.8); Lymphocytes % (A) 8 %; MCH 33.9 pg (25.0-35.0); MCHC 32.3 g/dL (31.0-37.0); Macrocytosis Moderate; Mean Platelet Volume 8.9; Monocytes # (A) 0.6 k/uL (0-1.0); Monocytes % (A) 5 %; Neutrophils # (A) 10.2 k/uL (1.3-7.7); Neutrophils % (A) 86 %; Platelet Count 120 k/uL (150-450); RBC 4.26 m/uL (4.30-5.90); RDW 13.7 % (11.5-15.5); WBC 11.8 k/uL (3.8-10.6)
[2021-10-19 13:16] LABS: Albumin 3.3 g/dL (3.5-5.0); Calcium 9.1 mg/dL (8.4-10.2); Magnesium 2.9 mg/dL (1.6-2.3); Potassium 4.1 mmol/L (3.5-5.1); Total Bilirubin 0.3 mg/dL (0.2-1.3); Total Protein 6.1 g/dL (6.3-8.2)
[2021-10-19 13:19] LABS: MCV 104.9 fL (80.0-100.0)
[2021-10-19 13:21] LABS: INR 1.1 (<1.2); Partial Thromboplastin Time 25.4 sec (22.0-30.0)
--- NOTE | 2021-10-19 13:31 | XR ---
EXAMINATION TYPE: XR chest 2V DATE OF EXAM: 10/19/2021 COMPARISON: 09/15/2021 HISTORY: 76 years Male. STUDY INDICATION GIVEN: Weakness . TECHNIQUE: AP and lateral chest radiograph IMPRESSION: Hyperinflated lungs suggest COPD/emphysema. No focal airspace disease, pneumothorax or pleural effusion. The cardiomediastinal silhouette is normal in appearance. Aortic vascular stent is again partially seen in the upper abdomen. No acute osseous abnormalities.
--- NOTE | 2021-10-19 14:11 | CT ---
EXAMINATION TYPE: CT chest angio for PE DATE OF EXAM: 10/19/2021 COMPARISON: 07/23/2020 HISTORY: SOB, elevated d dimer CT DLP: 202 mGycm Automated exposure control for dose reduction was used. CONTRAST: Performed with IV Contrast, patient injected with 100 mL of Isovue 300. There are 3-D post processed images. There is pulmonary hyperinflation and flattening of the diaphragm. There is no mediastinal adenopathy . There are no hilar masses. Thoracic aorta is atheromatous. There is 4.1 cm aneurysm of the ascendin g aorta. There is normal contrast opacification of the pulmonary arteries. There are no filling defects. There is some thrombus formation in the posterior wall of the descending thoracic aorta measuring up to 1 cm in thickness. This is an apparent limited dissection and is a change compared to old exam. There is aorto iliac stent in the abdominal aorta noted. There is renal atrophy. There is no pleural effusion. There is no pericardial effusion. IMPRESSION: No evidence of pulmonary embolism. There is a limited dissection of the posterior wall of the mid manpreet cending thoracic aorta. This appears new compared to old exam. There is clearing of the pleural effusions and basilar atelectasis compared to old exam. There is li mited evaluation of an abdominal aortic aneurysm. This is probably not changed compared to old exam. There is new abdominal ascites fluid compared to old exam.
[2021-10-19] MEDS ORDERED: ONDANSETRON 4 MG/2 ML VIAL IVP PRN (14:32)
[2021-10-19] MEDS ORDERED: NALOXONE 0.4 MG/ML 1 ML VIAL IV PRN (14:32)
[2021-10-19] MEDS ORDERED: FAMOTIDINE 20 MG TAB PO PRN (15:00)
[2021-10-19] MEDS ORDERED: MIDODRINE 5 MG TAB PO PRN (15:00)
[2021-10-19] MEDS: DIPHENOX-ATROP 2.5-0.025 MG 1 EACH TAB PO SCH ×2 (16:27→22:07)
[2021-10-19] MEDS: CALCIUM ACETATE 667 MG TAB PO SCH (18:59)
[2021-10-19] MEDS ORDERED: ATORVASTATIN 80 MG TAB PO SCH (21:00)
[2021-10-19] MEDS: MAGNESIUM OXIDE 400 MG TAB PO SCH (22:06)
[2021-10-19] MEDS: METOPROLOL TARTRATE 12.5 MG TAB PO SCH (22:10)
[2021-10-20 05:34] VITALS: RESP 18
[2021-10-20] MEDS: CALCIUM ACETATE 667 MG TAB PO SCH ×2 (06:14→13:00)
[2021-10-20 07:04] LABS: Calcium 8.3 mg/dL (8.4-10.2)
[2021-10-20 07:15] LABS: Basophils % (A) 0 %; Eosinophils % (A) 0 %; HCT 36.4 % (39.0-53.0); Lymphocytes # (A) 1.1 k/uL (1.0-4.8); Lymphocytes % (A) 14 %; MCH 34.3 pg (25.0-35.0); MCHC 33.1 g/dL (31.0-37.0); MCV 103.5 fL (80.0-100.0); Macrocytosis Slight; Mean Platelet Volume 9.1; Monocytes # (A) 0.5 k/uL (0-1.0); Monocytes % (A) 7 %; Neutrophils % (A) 78 %; RBC 3.51 m/uL (4.30-5.90); RDW 14.4 % (11.5-15.5); WBC 7.8 k/uL (3.8-10.6)
[2021-10-20 07:16] LABS: Platelet Count 87 k/uL (150-450)
[2021-10-20] MEDS ORDERED: BISOPROLOL-HCTZ 2.5-6.25 MG 1 EACH TAB PO SCH (09:00)
[2021-10-20] MEDS ORDERED: CITALOPRAM HYDROBROMIDE 20 MG TAB PO SCH (09:00)
[2021-10-20] MEDS ORDERED: POTASSIUM CHLORIDE ER 20 MEQ TAB.ER PO SCH (09:00)
[2021-10-20] MEDS: DIPHENOX-ATROP 2.5-0.025 MG 1 EACH TAB PO SCH (09:10)
[2021-10-20] MEDS: METOPROLOL TARTRATE 12.5 MG TAB PO SCH (09:10)
[2021-10-20] MEDS: MAGNESIUM OXIDE 400 MG TAB PO SCH (09:10)
--- NOTE | 2021-10-20 10:23 | ECHOF ---
Referral Reason:LV function MEASUREMENTS -------- HEIGHT: 167.6 cm WEIGHT: 42.2 kg BP: IVSd: 1.1 cm (0.6 - 1.1) LVIDd: 3.2 cm (3.9 - 5.3) LVPWd: 1.2 cm (0.6 - 1.1) IVSs: 1.6 cm LVIDs: 1.9 cm LVPWs: 1.6 cm Ao Diam: 4.1 cm (2.0 - 3.7) AV Cusp: 2.4 cm (1.5 - 2.6) LA Diam: 2.2 cm (2.7 - 3.8) MV EXCURSION: 7.983 mm (> 18.000) MV EF SLOPE: 31 mm/s (70 - 150) EPSS: 0.7 cm MV E Dariusz: 0.51 m/s MV DecT: 318 ms MV A Dariusz: 0.67 m/s MV E/A Ratio: 0.75 AR PHT: 472 ms RAP: 5.00 mmHg RVSP: 27.35 mmHg FINDINGS -------- This was a technically adequate study. The left ventricular size is normal. There is mild concentric left ventricular hypertrophy. Overa ll left ventricular systolic function is normal with, an EF between 55 - 60 %. The right ventricle is normal in size. The left atrial size is normal. The right atrial size is normal. The aortic valve is trileaflet and appears structurally normal. Trace amount of aortic regurgitatio n. The mitral valve is normal. The mitral valve leaflets are mildly thickened. Mild mitral regurgita tion is present. The tricuspid valve appears structurally normal. Mild tricuspid regurgitation present. Right vent ricular systolic pressure is normal at < 35 mmHg. There is no pulmonic regurgitation present. The aortic root and ascending aorta are dilated measuring 4.1 cm2 IVC Not well visulized. There is no pericardial effusion. CONCLUSIONS -------- 1. The left ventricular size is normal. 2. There is mild concentric left ventricular hypertrophy. 3. Overall left ventricular systolic function is normal with, an EF between 55 - 60 %. 4. Trace amount of aortic regurgitation. 5. The mitral valve leaflets are mildly thickened. 6. Mild tricuspid regurgitation present. 7. The aortic root and ascending aorta are dilated measuring 4.1 cm2 8. There is no pericardial effusion. DIGESTER HAND: Marilee Reyes RDCS
--- NOTE | 2021-10-20 10:49 | P.CRDCN ---
History of Present Illness History of present illness: HISTORY OF PRESENTING ILLNESS This is a pleasant 76-year-old male past medical history significant for hypertension, hyperlipidemia, end-stage renal disease on peritoneal dialysis, abdominal aortic aneurysm status post repair in 2018, former nicotine use. He states he sees Dr. Franklin, but no information found in the Office. We have been asked to see in consultation for elevated troponin. Patient presents to the emergency department with worsening exertional dyspnea, nausea and vomiting over the past 4-5 days. Yesterday his shortness of breath worsened and presented to the emergency department for further evaluation. Denies chest pain, LE edema, palpitations, lightheadedness, dizziness. He denies any symptoms of orthopnea or PND. He denies any symptoms of presyncope or syncope. He states his breathing, abdominal pain and nausea vomiting have is improved. He denies any history of NE, coronary disease, diabetes. He denies tobacco use. Echocardiogram revealed EF of 5560 percent, mild tricuspid regurgitation, aortic root and ascending aorta are dilated measuring 4.1 cm DIAGNOSTICS EKG reveals sinus bradycardia, heart rate 56, left axis deviation, poor R wave progression, right bundle branch block. T wave inversions in leads V2-V3. ST depression in lead V3. Prior EKG in 08/2021 with similar findings. Telemetry tracings indicate sinus mechanism HR 55-60s CT chest revealed no pulmonary embolism. 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 New abdominal ascites. Chest xray hyperinflated lung suggestive COPD, aortic vascular stent is again partially see in the upper abdomen. Laboratory reviewed, WBC 11.8, hemoglobin 14.4, platelets 120, d-dimer 27.8, sodium 130, potassium 4.1, BUN 28, serum creatinine 7.8, lactate 3.5, repeat 1.7, magnesium 2.9, troponin 0.05, 0.07, 0.07, proBNP 20,300, COVID-19 pcr negative Echocardiogram 06/2021 revealed EF of 5055 percent, mild aortic regurgitation, mild mitral regurgitation, mild tricuspid regurgitation Current home medications include potassium chloride, midodrine 10 mg 3 times a day, Lopressor 12.5 mg twice a day, magnesium oxide, aspirin 81 mg daily, a torvastatin 80 mg nightly, Ziac 2.5mg-6.25mg daily REVIEW OF SYSTEMS At the time of my exam: CONSTITUTIONAL: Denies fever or chills. CARDIOVASCULAR: +shortness of breath, +FUNG, Denies chest pain, orthopnea, PND or palpitations. RESPIRATORY: Denies cough. GASTROINTESTINAL +abdominal pain, Denies diarrhea, constipation, +nausea and vomiting. MUSCULOSKELETAL: Denies myalgias. NEUROLOGIC: Denies numbness, tingling, headache or weakness. ENDOCRINE: Denies fatigue, weight change, polydipsia or polyurina. GENITOURINARY: Denies burning, hematuria or urgency with micturation. HEMATOLOGIC: Denies history of anemia or bleeding. PHYSICAL EXAMINATION Blood pressure 119/66, heart rate 56, afebrile and saturations greater than 92% on room air CONSTITUTIONAL: No apparent distress. HEENT: Head is normocephalic. Pupils are equal, round. Sclerae anicteric. Mucous membranes of the mouth are moist. No JVD. No carotid bruit. CHEST EXAMINATION: Lungs are clear to auscultation. No chest wall tenderness is noted on palpation or with deep breathing. HEART EXAMINATION: Regular rate and rhythm. S1, S2 heard. No murmurs, gallops or rub. ABDOMEN: Soft, nontender. Positive bowel sounds. EXTREMITIES: 2+ peripheral pulses, no lower extremity edema and no calf tenderness. SKIN: war, dry NEUROLOGIC EXAMINATION: Patient is awake, alert and oriented x3. 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 PLAN 2D echocardiogram obtained and reviewed Recommend CT surgery consult Continue home cardiac medications Continue cardiac telemetry Further recommendations based on clinical course Nurse Practitioner note has been reviewed, I agree with a documented findings and plan of care. Patient was seen and examined. Past Medical History Past Medical History: GERD/Reflux, Hearing Disorder / Deafness, Hyperlipidemia, Hypertension, Renal Disease Additional Past Medical History / Comment(s): AAA. Peritoneal dialysis port daily. Pancreatitis 12/2020. Colon polyps. History of Any Multi-Drug Resistant Organisms: None Reported Past Surgical History: Cholecystectomy, Hernia Repair, Orthopedic Surgery Additional Past Surgical History / Comment(s): AAA stent placement, bilat inguinal hernia repair, peritoneal dialysis placement. ORIF Rt hand w/ pins. EGD, Colonoscopy. Past Anesthesia/Blood Transfusion Reactions: No Reported Reaction Past Psychological History: Depression Smoking Status: Former smoker Past Alcohol Use History: None Reported Past Drug Use History: None Reported - Past Family History Sister(s) Family Medical History: Cancer, Myocardial Infarction ([place]) Additional Family Medical History / Comment(s): esophageal ca Brother(s) Family Medical History: Pneumonia Medications and Allergies Home Medications Medication Instructions Recorded Confirmed Type Atorvastatin [Lipitor] 80 mg PO HS 01/12/19 10/19/21 History Calcium Acetate [PhosLo] 667 mg PO AC-TID 08/28/20 10/19/21 History Aspirin 81 mg PO HS 04/18/21 10/19/21 History Famotidine [Pepcid] 20 mg PO HS PRN 04/18/21 10/19/21 History dronabinoL [Marinol] 10 mg PO BID 07/19/21 10/19/21 History Bisoprol/Hydrochlorothiazide [Ziac 1 tab PO DAILY 09/15/21 10/19/21 History 2.5-6.25 MG] Potassium Chloride ER [K-Dur 20] 20 meq PO DAILY #30 tablet 09/18/21 10/19/21 Rx Citalopram Hydrobromide [CeleXA] 20 mg PO DAILY 10/19/21 10/19/21 History Diphenox-Atrop 2.5-0.025 mg 1 tab PO TID 10/19/21 10/19/21 History [Lomotil] Magnesium Oxide 400 mg PO BID 10/19/21 10/19/21 History Metoprolol Tartrate [Lopressor] 12.5 mg PO BID 10/19/21 10/19/21 History Midodrine HCl [ProAmatine] 10 mg PO TID PRN 10/19/21 10/19/21 History Allergies Allergy/AdvReac Type Severity Reaction Status Date / Time heparin Allergy Severe HIT/LARRY-see Verified 10/19/21 13:21 comment cyclobenzaprine Allergy Rash/Hives Verified 10/19/21 13:21 [From Flexeril] Physical Exam Vitals: Vital Signs Temp Pulse Pulse Resp BP BP Pulse Ox 10/20/21 04:40 98.1 F 56 L 18 119/66 97 10/20/21 04:00 98.6 F 59 L 16 122/54 99 10/20/21 02:00 56 L 18 126/76 96 10/20/21 00:00 56 L 18 114/67 97 10/19/21 22:00 56 L 16 106/68 97 10/19/21 20:47 98.1 F 57 L 18 124/70 97 10/19/21 18:00 57 L 16 126/71 96 10/19/21 17:19 58 L 44 H 121/72 99 10/19/21 17:12 57 L 17 114/71 98 10/19/21 16:00 134/71 10/19/21 14:42 120/85 10/19/21 14:37 54 L 17 135/77 97 10/19/21 13:50 60 17 119/74 98 10/19/21 11:55 98.0 F 64 18 90/60 98 Intake and Output 10/19/21 10/19/21 10/20/21 14:59 22:59 06:59 Other: Weight 42.184 kg 42.184 kg Results 10/20/21 06:00 10/20/21 06:00 Cardiac Enzymes 10/19/21 10/19/21 10/19/21 Range/Units 12:51 12:51 15:35 AST 31 (17-59) U/L Troponin I 0.051 H* 0.075 H* (0.000-0.034) ng/mL 10/19/21 Range/Units 19:09 AST (17-59) U/L Troponin I 0.077 H* (0.000-0.034) ng/mL Coagulation 10/19/21 Range/Units 12:51 PT 12.0 (9.0-12.0) sec APTT 25.4 (22.0-30.0) sec CBC 10/19/21 Range/Units 12:51 WBC 11.8 H (3.8-10.6) k/uL RBC 4.26 L (4.30-5.90) m/uL Hgb 14.4 (13.0-17.5) gm/dL Hct 44.7 (39.0-53.0) % Plt Count 120 L (150-450) k/uL Comprehensive Metabolic Panel 10/19/21 Range/Units 12:51 Sodium 130 L (137-145) mmol/L Potassium 4.1 (3.5-5.1) mmol/L Chloride 90 L (98-107) mmol/L Carbon Dioxide 28 (22-30) mmol/L BUN 28 H (9-20) mg/dL Creatinine 7.81 H* (0.66-1.25) mg/dL Glucose 125 H (74-99) mg/dL Calcium 9.1 (8.4-10.2) mg/dL AST 31 (17-59) U/L ALT 30 (4-49) U/L Alkaline Phosphatase 99 (38-126) U/L Total Protein 6.1 L (6.3-8.2) g/dL Albumin 3.3 L (3.5-5.0) g/dL Current Medications Generic Name Dose Route Start Last Admin Trade Name Freq PRN Reason Stop Dose Admin Atorvastatin Calcium 80 mg 10/19/21 21:00 10/19/21 22:06 Atorvastatin 80 Mg Tab PO 80 mg HS ALEX Administration Bisoprolol Fumarate 1 each 10/20/21 09:00 Bisoprolol-Hctz 2.5-6.25 Mg 1 Each Tab PO DAILY [facility] Calcium Acetate 667 mg 10/19/21 17:30 10/20/21 06:14 Calcium Acetate 667 Mg Tab PO 667 mg AC-TID ALEX Administration Citalopram Hydrobromide 20 mg 10/20/21 09:00 Citalopram Hydrobromide 20 Mg Tab PO DAILY [facility] Diphenoxylate HCl/Atropine 1 each 10/19/21 16:00 10/19/21 22:07 Diphenox-Atrop 2.5-0.025 Mg 1 Each Tab PO 1 each TID ALEX Administration Famotidine 20 mg 10/19/21 15:00 Famotidine 20 Mg Tab PO HS PRN Heartburn Magnesium Oxide 400 mg 10/19/21 21:00 10/19/21 22:06 Magnesium Oxide 400 Mg Tab PO 400 mg BID ALEX Administration Metoprolol Tartrate 12.5 mg 10/19/21 21:00 10/19/21 22:10 Metoprolol Tartrate 12.5 Mg Tab PO Not Given BID [facility] Midodrine 10 mg 10/19/21 15:00 Midodrine 5 Mg Tab PO TID PRN Blood Pressure - Low Naloxone HCl 0.2 mg 10/19/21 14:32 Naloxone 0.4 Mg/Ml 1 Ml Vial IV Q2M PRN Opioid Reversal Ondansetron HCl 4 mg 10/19/21 14:32 Ondansetron 4 Mg/2 Ml Vial IVP Q8HR PRN Nausea And Vomiting Potassium Chloride 20 meq 10/20/21 09:00 Potassium Chloride Er 20 Meq Tab.Er PO DAILY ALEX Intake and Output 10/19/21 10/19/21 10/20/21 14:59 22:59 06:59 Other: Weight 42.184 kg 42.184 kg Patient Weight 10/20/21 06:59 Weight 42.184 kg 10/19/21 12:51 10/19/21 12:51
[2021-10-20 11:36] VITALS: BMI 15.0
--- NOTE | 2021-10-20 11:48 | P.GSCN ---
History of Present Illness Consult date: 10/20/21 Reason for Consult: Aortic dissection Requesting physician: Hossein Kong History of present illness: This is a 76-year-old male with history of hyperlipidemia hypertension, GERD, renal disease on peritoneal dialysis and history of abdominal aortic aneurysm repair with bilateral renal stents in [address] Phan at [facility]. The patient follows regularly with Dr. Phan. Patient presented to the [facility] department yesterday with complaints of shortness of breath with exertion, nausea, vomiting and diarrhea over the last 1-2 weeks duration. The patient had a CT angiogram chest shows no evidence of pulmonary embolism. 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 Vascular surgery was consulted regarding reported aortic dissection. He denies any sick contacts. States appetite has been decreased. He states he has been feeling very weak, dizzy, and having to sit down frequently related to dizziness upon standing and walking. On admission patient was noted to have WBC of 11.8 hemoglobin 14.4 platelet count 220,000 d-dimer elevated at 27.86 elevated t roponins 3 and a plasma lactic acid of 3.5. Patient denies any abdominal pain or pain radiating to his back. He states he has chronic back pain for which he sees a chiropractor. He denies any shortness of breath at rest. His accident as 96-99% at room air. Blood Pressure stable. Heart rate has been in the 50s. Cardiology on consult, echocardiogram EF between 55-60% with trace amount of a ortic regurgitation, mild tricuspid regurgitation. Patient currently states he has no shortness of breath at rest however has some shortness of breath with walking to the bathroom. He denies any further nausea or vomiting and is eating breakfast. Diarrhea improving. States he was having some numbness and tingling to his bilateral toes however again patient does have a history of chronic back pain. Review of Systems A 14 point review of systems was completed all pertinent positives A diabetes as stated in the HPI Past Medical History Past Medical History: GERD/Reflux, Hearing Disorder / Deafness, Hyperlipidemia, Hypertension, Renal Disease Additional Past Medical History / Comment(s): AAA. Peritoneal dialysis port daily. Pancreatitis 12/2020. Colon polyps. History of Any Multi-Drug Resistant Organisms: None Reported Past Surgical History: Cholecystectomy, Hernia Repair, Orthopedic Surgery Additional Past Surgical History / Comment(s): AAA stent placement, bilat inguinal hernia repair, peritoneal dialysis placement. ORIF Rt hand w/ pins. EGD, Colonoscopy. Past Anesthesia/Blood Transfusion Reactions: No Reported Reaction Past Psychological History: Depression Smoking Status: Former smoker Past Alcohol Use History: None Reported Past Drug Use History: None Reported - Past Family History Sister(s) Family Medical History: Cancer, Myocardial Infarction ([place]) Additional Family Medical History / Comment(s): esophageal ca Brother(s) Family Medical History: Pneumonia Medications and Allergies Home Medications Medication Instructions Recorded Confirmed Type Atorvastatin [Lipitor] 80 mg PO HS 01/12/19 10/19/21 History Calcium Acetate [PhosLo] 667 mg PO AC-TID 08/28/20 10/19/21 History Aspirin 81 mg PO HS 04/18/21 10/19/21 History Famotidine [Pepcid] 20 mg PO HS PRN 04/18/21 10/19/21 History dronabinoL [Marinol] 10 mg PO BID 07/19/21 10/19/21 History Bisoprol/Hydrochlorothiazide [Ziac 1 tab PO DAILY 09/15/21 10/19/21 History 2.5-6.25 MG] Potassium Chloride ER [K-Dur 20] 20 meq PO DAILY #30 tablet 09/18/21 10/19/21 Rx Citalopram Hydrobromide [CeleXA] 20 mg PO DAILY 10/19/21 10/19/21 History Diphenox-Atrop 2.5-0.025 mg 1 tab PO TID 10/19/21 10/19/21 History [Lomotil] Magnesium Oxide 400 mg PO BID 10/19/21 10/19/21 History Metoprolol Tartrate [Lopressor] 12.5 mg PO BID 10/19/21 10/19/21 History Midodrine HCl [ProAmatine] 10 mg PO TID PRN 10/19/21 10/19/21 History Allergies Allergy/AdvReac Type Severity Reaction Status Date / Time heparin Allergy Severe HIT/LARRY-see Verified 10/19/21 13:21 comment cyclobenzaprine Allergy Rash/Hives Verified 10/19/21 13:21 [From Flexeril] Surgical - Exam Vital Signs Temp Pulse Resp BP Pulse Ox 98.0 F 64 18 90/60 98 10/19/21 11:55 10/19/21 11:55 10/19/21 11:55 10/19/21 11:55 10/19/21 11:55 General appearance: The patient is alert, oriented, appears in no acute distress. HET: Head is normocephalic and atraumatic. Neck: Supple without lymphadenopathy. Trachea midline. Heart: S1 S2. Regular rate and rhythm. Lungs: Clear to auscultation.. Abdomen: Soft, nontender, nondistended. Extremities: Normal skin color and turgor. No cyanosis, rash, ulceration, clubbing, or edema. Palpable bilateral pedal pulses. Neurological: No focal deficits. Strength and sensation are grossly intact. Results - Labs 10/20/21 06:00 10/20/21 06:00 Abnormal Lab Results - Last 24 Hours (Table) 10/19/21 10/19/21 10/19/21 Range/Units 12:51 12:51 12:51 WBC 11.8 H (3.8-10.6) k/uL RBC 4.26 L (4.30-5.90) m/uL Hgb (13.0-17.5) gm/dL Hct (39.0-53.0) % MCV 104.9 H D (80.0-100.0) fL Plt Count 120 L (150-450) k/uL Neutrophils # 10.2 H (1.3-7.7) k/uL Lymphocytes # 0.9 L (1.0-4.8) k/uL D-Dimer 27.86 H (<0.60) mg/L FEU Sodium 130 L (137-145) mmol/L Chloride 90 L (98-107) mmol/L BUN 28 H (9-20) mg/dL Creatinine 7.81 H* (0.66-1.25) mg/dL Glucose 125 H (74-99) mg/dL Plasma Lactic Acid Victor Hugo (0.7-2.0) mmol/L Calcium (8.4-10.2) mg/dL Magnesium 2.9 H (1.6-2.3) mg/dL Troponin I (0.000-0.034) ng/mL Total Protein 6.1 L (6.3-8.2) g/dL Albumin 3.3 L (3.5-5.0) g/dL 10/19/21 10/19/21 10/19/21 Range/Units 12:51 12:51 15:35 WBC (3.8-10.6) k/uL RBC (4.30-5.90) m/uL Hgb (13.0-17.5) gm/dL Hct (39.0-53.0) % MCV (80.0-100.0) fL Plt Count (150-450) k/uL Neutrophils # (1.3-7.7) k/uL Lymphocytes # (1.0-4.8) k/uL D-Dimer (<0.60) mg/L FEU Sodium (137-145) mmol/L Chloride (98-107) mmol/L BUN (9-20) mg/dL Creatinine (0.66-1.25) mg/dL Glucose (74-99) mg/dL Plasma Lactic Acid Victor Hugo 3.5 H* (0.7-2.0) mmol/L Calcium (8.4-10.2) mg/dL Magnesium (1.6-2.3) mg/dL Troponin I 0.051 H* 0.075 H* (0.000-0.034) ng/mL Total Protein (6.3-8.2) g/dL Albumin (3.5-5.0) g/dL 10/19/21 10/20/21 10/20/21 Range/Units 19:09 06:00 06:00 WBC (3.8-10.6) k/uL RBC 3.51 L (4.30-5.90) m/uL Hgb 12.0 L (13.0-17.5) gm/dL Hct 36.4 L (39.0-53.0) % MCV 103.5 H (80.0-100.0) fL Plt Count 87 L (150-450) k/uL Neutrophils # (1.3-7.7) k/uL Lymphocytes # (1.0-4.8) k/uL D-Dimer (<0.60) mg/L FEU Sodium 129 L (137-145) mmol/L Chloride 94 L (98-107) mmol/L BUN 35 H (9-20) mg/dL Creatinine 8.83 H* (0.66-1.25) mg/dL Glucose (74-99) mg/dL Plasma Lactic Acid Victor Hugo (0.7-2.0) mmol/L Calcium 8.3 L (8.4-10.2) mg/dL Magnesium (1.6-2.3) mg/dL Troponin I 0.077 H* (0.000-0.034) ng/mL Total Protein (6.3-8.2) g/dL Albumin (3.5-5.0) g/dL Diabetes panel 10/19/21 10/20/21 Range/Units 12:51 06:00 Sodium 130 L 129 L (137-145) mmol/L Potassium 4.1 4.0 (3.5-5.1) mmol/L Chloride 90 L 94 L (98-107) mmol/L Carbon Dioxide 28 29 (22-30) mmol/L BUN 28 H 35 H (9-20) mg/dL Creatinine 7.81 H* 8.83 H* (0.66-1.25) mg/dL Glucose 125 H 79 (74-99) mg/dL Calcium 9.1 8.3 L (8.4-10.2) mg/dL AST 31 (17-59) U/L ALT 30 (4-49) U/L Alkaline Phosphatase 99 (38-126) U/L Total Protein 6.1 L (6.3-8.2) g/dL Albumin 3.3 L (3.5-5.0) g/dL Calcium panel 10/19/21 10/20/21 Range/Units 12:51 06:00 Calcium 9.1 8.3 L (8.4-10.2) mg/dL Albumin 3.3 L (3.5-5.0) g/dL Pituitary panel 10/19/21 10/20/21 Range/Units 12:51 06:00 Sodium 130 L 129 L (137-145) mmol/L Potassium 4.1 4.0 (3.5-5.1) mmol/L Chloride 90 L 94 L (98-107) mmol/L Carbon Dioxide 28 29 (22-30) mmol/L BUN 28 H 35 H (9-20) mg/dL Creatinine 7.81 H* 8.83 H* (0.66-1.25) mg/dL Glucose 125 H 79 (74-99) mg/dL Calcium 9.1 8.3 L (8.4-10.2) mg/dL Adrenal panel 10/19/21 10/20/21 Range/Units 12:51 06:00 Sodium 130 L 129 L (137-145) mmol/L Potassium 4.1 4.0 (3.5-5.1) mmol/L Chloride 90 L 94 L (98-107) mmol/L Carbon Dioxide 28 29 (22-30) mmol/L BUN 28 H 35 H (9-20) mg/dL Creatinine 7.81 H* 8.83 H* (0.66-1.25) mg/dL Glucose 125 H 79 (74-99) mg/dL Calcium 9.1 8.3 L (8.4-10.2) mg/dL Total Bilirubin 0.3 (0.2-1.3) mg/dL AST 31 (17-59) U/L ALT 30 (4-49) U/L Alkaline Phosphatase 99 (38-126) U/L Total Protein 6.1 L (6.3-8.2) g/dL Albumin 3.3 L (3.5-5.0) g/dL - Imaging CT scan - chest: report reviewed (As stated in HPI) Assessment and Plan Assessment: 1. History of abdominal aortic aneurysm status post repair 2. Dyspnea on exertion 3. Dizziness 4. Elevated troponins 5. Elevated d-dimer 6. Nausea and vomiting, resolved 7. History hyperlipidemia 8. History of hypertension Plan: CT angiogram chest images reviewed by Dr. Phan who has follow patient closely in the office. No acute changes found, all chronic. No plans for any surgical intervention at this time. Patient to follow-up outpatient as scheduled with Dr. Phan. Continue with recommendations from medical management and cardiology. Thank you for this consultation and allowing us take part in the plan of care of your patient during his hospital stay. The impression and plan of care has been dictated as directed. Dr. Phan I performed a history and examination of this patient, discussed the same with the dictator. I agree with the dictator's note ,documented as a scribe. Any additional findings or plans will be noted.
--- NOTE | 2021-10-20 11:51 | P.NPCON ---
History of Present Illness - Reason for Consult end stage renal disease - History of Present Illness Reason for consultation: End-stage renal disease History of present illness: The patient is a 76-year-old male seen in renal consultation for end-stage renal disease. He is maintained on peritoneal dialys is. Patient presented to the hospital with nausea and vomiting as well as dizziness. He denies syncopal episodes. He underwent CT angiogram of the chest which revealed no evidence of pulmonary embolism. There is concern for dissection of the thoracic aorta. He's been evaluated by cardiac thoracic surgery with no interventions planned at this time. He denies chest pain or shortness of breath. Blood pressures controlled. No fever or chills. No further vomiting. No diarrhea. No problems with peritoneal dialysis. States dialysate fluid has been clear. Vital signs are stable. General: The patient appeared well nourished and normally developed. HEENT: Head exam is unremarkable. LUNGS: Breath sounds decreased. HEART: Rate and Rhythm are regular. ABDOMEN: Soft, no distention. EXTREMITITES: No edema. Past Medical History Past Medical History: GERD/Reflux, Hearing Disorder / Deafness, Hyperlipidemia, Hypertension, Renal Disease Additional Past Medical History / Comment(s): AAA. Peritoneal dialysis port daily. Pancreatitis 12/2020. Colon polyps. History of Any Multi-Drug Resistant Organisms: None Reported Past Surgical History: Cholecystectomy, Hernia Repair, Orthopedic Surgery Additional Past Surgical History / Comment(s): AAA stent placement, bilat inguinal hernia repair, peritoneal dialysis placement. ORIF Rt hand w/ pins. EGD, Colonoscopy. Past Anesthesia/Blood Transfusion Reactions: No Reported Reaction Past Psychological History: Depression Smoking Status: Former smoker Past Alcohol Use History: None Reported Past Drug Use History: None Reported - Past Family History Sister(s) Family Medical History: Cancer, Myocardial Infarction ([place]) Additional Family Medical History / Comment(s): esophageal ca Brother(s) Family Medical History: Pneumonia Medications and Allergies Home Medications Medication Instructions Recorded Confirmed Type Atorvastatin [Lipitor] 80 mg PO HS 01/12/19 10/19/21 History Calcium Acetate [PhosLo] 667 mg PO AC-TID 08/28/20 10/19/21 History Aspirin 81 mg PO HS 04/18/21 10/19/21 History Famotidine [Pepcid] 20 mg PO HS PRN 04/18/21 10/19/21 History dronabinoL [Marinol] 10 mg PO BID 07/19/21 10/19/21 History Bisoprol/Hydrochlorothiazide [Ziac 1 tab PO DAILY 09/15/21 10/19/21 History 2.5-6.25 MG] Potassium Chloride ER [K-Dur 20] 20 meq PO DAILY #30 tablet 09/18/21 10/19/21 Rx Citalopram Hydrobromide [CeleXA] 20 mg PO DAILY 10/19/21 10/19/21 History Diphenox-Atrop 2.5-0.025 mg 1 tab PO TID 10/19/21 10/19/21 History [Lomotil] Magnesium Oxide 400 mg PO BID 10/19/21 10/19/21 History Metoprolol Tartrate [Lopressor] 12.5 mg PO BID 10/19/21 10/19/21 History Midodrine HCl [ProAmatine] 10 mg PO TID PRN 10/19/21 10/19/21 History Allergies Allergy/AdvReac Type Severity Reaction Status Date / Time heparin Allergy Severe HIT/LARRY-see Verified 10/19/21 13:21 comment cyclobenzaprine Allergy Rash/Hives Verified 10/19/21 13:21 [From Flexeril] Physical Exam Vitals: Vital Signs Temp Pulse Pulse Resp BP BP Pulse Ox 10/20/21 08:00 98.2 F 64 124/68 99 10/20/21 04:40 98.1 F 56 L 18 119/66 97 10/20/21 04:00 98.6 F 59 L 16 122/54 99 10/20/21 02:00 56 L 18 126/76 96 10/20/21 00:00 56 L 18 114/67 97 10/19/21 22:00 56 L 16 106/68 97 10/19/21 20:47 98.1 F 57 L 18 124/70 97 10/19/21 18:00 57 L 16 126/71 96 10/19/21 17:19 58 L 44 H 121/72 99 10/19/21 17:12 57 L 17 114/71 98 10/19/21 16:00 134/71 10/19/21 14:42 120/85 10/19/21 14:37 54 L 17 135/77 97 10/19/21 13:50 60 17 119/74 98 10/19/21 11:55 98.0 F 64 18 90/60 98 Intake and Output 10/19/21 10/20/21 10/20/21 22:59 06:59 14:59 Other: Weight 42.184 kg 42.184 kg Results - Lab Results Most recent lab results Calcium 8.3 mg/dL (8.4-10.2) L 10/20/21 06:00 Magnesium 2.9 mg/dL (1.6-2.3) H 10/19/21 12:51 10/20/21 06:00 10/20/21 06:00 Assessment and Plan Plan: Assessment: 1. End-stage renal disease maintained on peritoneal dialysis. 2. Hyponatremia secondary to chronic disease. 3. History of AAA status post repair. 4. Possible limited dissection of thoracic aorta. 5. Chronic kidney disease mineral bone disease maintained on PhosLo. Plan: Resume 2 L exchanges every 6 hours with 1.5% dextrose solution. Check dialysate cell count culture and Gram stain. Stop bisoprolol-hctz. He is on metoprolol which can be continued. Hold midodrine for systolic blood pressure greater than 110. Thank you for the consultation. I will continue to follow the patient with you during his hospital stay.
--- NOTE | 2021-10-20 11:51 | P.GSCN ---
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 Sebas Garza on an outpati ent basis for his primary care service. His past medical history significant for hypertension, but most recently hypotension, hyperlipidemia, end-stage renal disease with peritoneal dialysis daily , history of abdominal aortic aneurysm with previous stent placement, history of shingles in June 2021, medical debility with a 40 pound weight loss over the past 6 months, GERD, hearing disorder, depression and remote history of tobacco abuse quit smoking around 40 years ago. The patient presented to the emergency department here at [facility] yesterday 10/19/2021 with complaints of progressive shortness of breath, complaints of dizziness, episodes of emesis over a 4-5 day period along with episodes of diarrhea. The patient denies any blood in his emesis or diarrhea although he reports some of his diarrhea was black in color. The patient also reports that he does peritoneal dialysis at home and in the last week he only missed 1 of his peritoneal dialysis days due to a malfunctioning of a machine he uses. He denies any recent fever, chills, headache, palpitations, chest pain, edema or recent trauma. Of note the patient does state that he has been vaccinated for COVID-19. Due to the above-mentioned complaints the patient decided to come to the ER for further evaluation and treatment recommendations. A 12-lead EKG was completed in the emergency department which showed sinus bradycardia with a bundle branch block heart rate 56 BPM. A chest x-ray was compared bleeding which showed suggestions of COPD/emphysema, no focal airspace disease, pneumothorax or pleural effusion, and no acute osseous abnormalities. Initial laboratory results showed a WBC count of 11.8, hemoglobin 14.4, hematocrit 44.7, platelets 120, d-dimer 27.86, sodium 130, chloride 90, BUN 28, creatinine 7.81, glucose 125, plastic lactic acid 3.5, magnesium 2.9, and positive serial troponins as high as 0.077. He also underwent a Coronavirus PCR which showed not detected. For further evaluation the patient underwent a CT chest angio for PE which showed no evidence of pulmonary embolism, a limited dissection of the posterior wall of the mid descending thoracic aorta, it also demonstrated a 4.1 cm aneurysm of the ascending aorta. He also had a 2-D echocardiogram completed which demonstrated her overall left ventricular systolic function is normal with an ejection fraction between 55 and 60%, trace amount aortic valve regurgitation, mild tricuspid valve regurgitation and an aortic root and ascending aorta dilated measuring 4.1 cm. Due to the findings of a limited dissection of the posterior wall of the mid descending thoracic aorta a consult was placed to Dr. Matthias Gibbs from cardiothoracic surgery for further evaluation and treatment recommendations. Review of Systems A 14 point review of systems was completed and was negative except as mentioned in the HPI. Past Medical History Past Medical History: Dialysis, GERD/Reflux, Hearing Disorder / Deafness, Hyperlipidemia, Hypertension, Renal Disease Additional Past Medical History / Comment(s): AAA. Peritoneal dialysis port daily. Pancreatitis 12/2020. Colon polyps. History of Any Multi-Drug Resistant Organisms: None Reported Past Surgical History: Appendectomy, Cholecystectomy, Hernia Repair, Orthopedic Surgery Additional Past Surgical History / Comment(s): AAA stent placement, bilat inguinal hernia repair, peritoneal dialysis placement. ORIF Rt hand w/ pins. EGD, Colonoscopy. Past Anesthesia/Blood Transfusion Reactions: No Reported Reaction Past Psychological History: Depression Smoking Status: Former smoker (Quit smoking 40 years ago) Past Alcohol Use History: None Reported Past Drug Use History: None Reported - Past Family History Sister(s) Family Medical History: Cancer, Myocardial Infarction ([place]) Additional Family Medical History / Comment(s): esophageal ca Brother(s) Family Medical History: Pneumonia Medications and Allergies Home Medications Medication Instructions Recorded Confirmed Type Atorvastatin [Lipitor] 80 mg PO HS 01/12/19 10/19/21 History Calcium Acetate [PhosLo] 667 mg PO AC-TID 08/28/20 10/19/21 History Aspirin 81 mg PO HS 04/18/21 10/19/21 History Famotidine [Pepcid] 20 mg PO HS PRN 04/18/21 10/19/21 History dronabinoL [Marinol] 10 mg PO BID 07/19/21 10/19/21 History Bisoprol/Hydrochlorothiazide [Ziac 1 tab PO DAILY 09/15/21 10/19/21 History 2.5-6.25 MG] Potassium Chloride ER [K-Dur 20] 20 meq PO DAILY #30 tablet 09/18/21 10/19/21 Rx Citalopram Hydrobromide [CeleXA] 20 mg PO DAILY 10/19/21 10/19/21 History Diphenox-Atrop 2.5-0.025 mg 1 tab PO TID 10/19/21 10/19/21 History [Lomotil] Magnesium Oxide 400 mg PO BID 10/19/21 10/19/21 History Metoprolol Tartrate [Lopressor] 12.5 mg PO BID 10/19/21 10/19/21 History Midodrine HCl [ProAmatine] 10 mg PO TID PRN 10/19/21 10/19/21 History Allergies Allergy/AdvReac Type Severity Reaction Status Date / Time heparin Allergy Severe HIT/LARRY-see Verified 10/19/21 13:21 comment cyclobenzaprine Allergy Rash/Hives Verified 10/19/21 13:21 [From Flexeril] Surgical - Exam Vital Signs Temp Pulse Resp BP Pulse Ox 98.0 F 64 18 90/60 98 10/19/21 11:55 10/19/21 11:55 10/19/21 11:55 10/19/21 11:55 10/19/21 11:55 - General Laying in bed on the cardiac stepdown unit, is cooperative, comfortable and in no acute distress. no distress, no pain, cachectic, chronically ill - Eyes PERRL, normal ocular movement, no pale, no icteric - ENT normal pinna, normal nares, normal mucosa, no congestion, decreased hearing, dentures - Neck Neck is supple, no lymphadenopathy. no masses, no bruits, trachea midline, no venous distension - Respiratory Lung sounds essentially clear throughout. Respirations are symmetrical and nonlabored. No wheezes, rhonchi or crackles. - Cardiovascular Regular rhythm and rate. S1 and S2 present, negative for S3, gallop or murmur. No edema present. Peripheral pulses palpable. - Abdomen Abdomen is soft, nontender and nondistended. Active bowel sounds present all 4 abdominal quadrants. Peritoneal dialysis catheter in place to his right lower quadrant abdomen. - Integumentary Skin is warm and dry. No clubbing or cyanosis is present. no rash, no growths, no abnormal pigmentation - Neurologic Cranial nerves II through XII intact. No focal deficits. - Musculoskeletal Moves all 4 extremities with equal strength bilateral. - Psychiatric oriented to time, oriented to person, oriented to place, speech is normal, memory intact Results - Labs 10/20/21 06:00 10/20/21 06:00 Abnormal Lab Results - Last 24 Hours (Table) 10/19/21 10/19/21 10/19/21 Range/Units 12:51 12:51 12:51 WBC 11.8 H (3.8-10.6) k/uL RBC 4.26 L (4.30-5.90) m/uL Hgb (13.0-17.5) gm/dL Hct (39.0-53.0) % MCV 104.9 H D (80.0-100.0) fL Plt Count 120 L (150-450) k/uL Neutrophils # 10.2 H (1.3-7.7) k/uL Lymphocytes # 0.9 L (1.0-4.8) k/uL D-Dimer 27.86 H (<0.60) mg/L FEU Sodium 130 L (137-145) mmol/L Chloride 90 L (98-107) mmol/L BUN 28 H (9-20) mg/dL Creatinine 7.81 H* (0.66-1.25) mg/dL Glucose 125 H (74-99) mg/dL Plasma Lactic Acid Victor Hugo (0.7-2.0) mmol/L Calcium (8.4-10.2) mg/dL Magnesium 2.9 H (1.6-2.3) mg/dL Troponin I (0.000-0.034) ng/mL Total Protein 6.1 L (6.3-8.2) g/dL Albumin 3.3 L (3.5-5.0) g/dL 10/19/21 10/19/21 10/19/21 Range/Units 12:51 12:51 15:35 WBC (3.8-10.6) k/uL RBC (4.30-5.90) m/uL Hgb (13.0-17.5) gm/dL Hct (39.0-53.0) % MCV (80.0-100.0) fL Plt Count (150-450) k/uL Neutrophils # (1.3-7.7) k/uL Lymphocytes # (1.0-4.8) k/uL D-Dimer (<0.60) mg/L FEU Sodium (137-145) mmol/L Chloride (98-107) mmol/L BUN (9-20) mg/dL Creatinine (0.66-1.25) mg/dL Glucose (74-99) mg/dL Plasma Lactic Acid Victor Hugo 3.5 H* (0.7-2.0) mmol/L Calcium (8.4-10.2) mg/dL Magnesium (1.6-2.3) mg/dL Troponin I 0.051 H* 0.075 H* (0.000-0.034) ng/mL Total Protein (6.3-8.2) g/dL Albumin (3.5-5.0) g/dL 10/19/21 10/20/21 10/20/21 Range/Units 19:09 06:00 06:00 WBC (3.8-10.6) k/uL RBC 3.51 L (4.30-5.90) m/uL Hgb 12.0 L (13.0-17.5) gm/dL Hct 36.4 L (39.0-53.0) % MCV 103.5 H (80.0-100.0) fL Plt Count 87 L (150-450) k/uL Neutrophils # (1.3-7.7) k/uL Lymphocytes # (1.0-4.8) k/uL D-Dimer (<0.60) mg/L FEU Sodium 129 L (137-145) mmol/L Chloride 94 L (98-107) mmol/L BUN 35 H (9-20) mg/dL Creatinine 8.83 H* (0.66-1.25) mg/dL Glucose (74-99) mg/dL Plasma Lactic Acid Victor Hugo (0.7-2.0) mmol/L Calcium 8.3 L (8.4-10.2) mg/dL Magnesium (1.6-2.3) mg/dL Troponin I 0.077 H* (0.000-0.034) ng/mL Total Protein (6.3-8.2) g/dL Albumin (3.5-5.0) g/dL Diabetes panel 10/19/21 10/20/21 Range/Units 12:51 06:00 Sodium 130 L 129 L (137-145) mmol/L Potassium 4.1 4.0 (3.5-5.1) mmol/L Chloride 90 L 94 L (98-107) mmol/L Carbon Dioxide 28 29 (22-30) mmol/L BUN 28 H 35 H (9-20) mg/dL Creatinine 7.81 H* 8.83 H* (0.66-1.25) mg/dL Glucose 125 H 79 (74-99) mg/dL Calcium 9.1 8.3 L (8.4-10.2) mg/dL AST 31 (17-59) U/L ALT 30 (4-49) U/L Alkaline Phosphatase 99 (38-126) U/L Total Protein 6.1 L (6.3-8.2) g/dL Albumin 3.3 L (3.5-5.0) g/dL Calcium panel 10/19/21 10/20/21 Range/Units 12:51 06:00 Calcium 9.1 8.3 L (8.4-10.2) mg/dL Albumin 3.3 L (3.5-5.0) g/dL Pituitary panel 10/19/21 10/20/21 Range/Units 12:51 06:00 Sodium 130 L 129 L (137-145) mmol/L Potassium 4.1 4.0 (3.5-5.1) mmol/L Chloride 90 L 94 L (98-107) mmol/L Carbon Dioxide 28 29 (22-30) mmol/L BUN 28 H 35 H (9-20) mg/dL Creatinine 7.81 H* 8.83 H* (0.66-1.25) mg/dL Glucose 125 H 79 (74-99) mg/dL Calcium 9.1 8.3 L (8.4-10.2) mg/dL Adrenal panel 10/19/21 10/20/21 Range/Units 12:51 06:00 Sodium 130 L 129 L (137-145) mmol/L Potassium 4.1 4.0 (3.5-5.1) mmol/L Chloride 90 L 94 L (98-107) mmol/L Carbon Dioxide 28 29 (22-30) mmol/L BUN 28 H 35 H (9-20) mg/dL Creatinine 7.81 H* 8.83 H* (0.66-1.25) mg/dL Glucose 125 H 79 (74-99) mg/dL Calcium 9.1 8.3 L (8.4-10.2) mg/dL Total Bilirubin 0.3 (0.2-1.3) mg/dL AST 31 (17-59) U/L ALT 30 (4-49) U/L Alkaline Phosphatase 99 (38-126) U/L Total Protein 6.1 L (6.3-8.2) g/dL Albumin 3.3 L (3.5-5.0) g/dL - Imaging Chest x-ray: report reviewed, image reviewed CT scan - chest: report reviewed, image reviewed EKG: image reviewed Assessment and Plan Assessment: 1. Limited the dissection of the posterior wall of the mid descending thoracic aorta 2. Elevated troponin as high as 0.077 3. History of hypertension 4. Recent hypotension 5. Hyperlipidemia 6. End-stage renal disease, on peritoneal dialysis 7. History of abdominal aortic aneurysm, status post stenting 8. History of GERD 9. History of depression 10. Remote history of tobacco abuse, quit smoking over 40 years ago Plan: The patient was seen and examined at his bedside on the cardiac stepdown unit. His chart diagnostics reviewed. The patient was seen and examined by Dr. Matthias Gibbs from cardiothoracic surgery. Dr. Gibbs discussed the findings on the CT angio of his chest with the patient. No surgical intervention is warranted at this time. Recommend tight blood pressure control. Medical management and other comorbidities per primary care service. We will continue to follow this patient on an as needed basis. Thank you for this consult, please call for any further questions. Time with Patient: Greater than 30
[2021-10-20] MEDS ORDERED: DIALYSIS (PERIT 1.5%) 2,000 ML 30 G/2,000 ML BAG INTRAPERIT SCH (12:00)
[2021-10-20 12:57] VITALS: BP 103/66; TEMP 98
[2021-10-20 15:59] VITALS: PULSE 64
== END 2021-10-20 17:37 | disposition home or self-care (01) | DRG 299 ==
LOC: EC 11:46 → 4SSUR 14:32 → 3SCARD 15:22
PROVIDERS: ADMIT Family Medicine; ATTEND Family Medicine
DX: I71.01 Dissection of thoracic aorta (principal); N18.6 End stage renal disease; I12.0 Hypertensive chronic kidney disease with stage 5 chronic kidney disease or end stage renal disease; E87.1 Hypo-osmolality and hyponatremia; E87.2 Acidosis; R18.8 Other ascites; E78.5 Hyperlipidemia, unspecified; Z20.822 Contact with and (suspected) exposure to COVID-19; G89.29 Other chronic pain; H91.90 Unspecified hearing loss, unspecified ear; E87.8 Other disorders of electrolyte and fluid balance, not elsewhere classified; M54.9 Dorsalgia, unspecified; E83.89 Other disorders of mineral metabolism; F32.9 Major depressive disorder, single episode, unspecified; Z86.19 Personal history of other infectious and parasitic diseases; Z87.891 Personal history of nicotine dependence; Z90.49 Acquired absence of other specified parts of digestive tract; Z98.890 Other specified postprocedural states; Z99.2 Dependence on renal dialysis; Z86.010 Personal history of colon polyps; Z98.62 Peripheral vascular angioplasty status; Z79.82 Long term (current) use of aspirin; Z79.899 Other long term (current) drug therapy; Z80.0 Family history of malignant neoplasm of digestive organs; Z82.49 Family history of ischemic heart disease and other diseases of the circulatory system; Z88.8 Allergy status to other drugs, medicaments and biological substances
CPT/HCPCS: 36415; 71046; 71275; 80048; 80053; 83605; 83735; 83880; 84484; 85025; 85379; 85610; 85730; 87040; 87635; 93005; 93306; 96361; 96374; 99285

== ENCOUNTER 2021-11-03 11:42 | Observation (INO) | payer MEDICARE ==
[2021-11-03] MEDS ORDERED: SODIUM CHLORIDE 0.9% 500 ML 500 ML IV STA (12:16)
--- NOTE | 2021-11-03 12:32 | ED ---
General Adult HPI - General Chief complaint: Shortness of Breath Stated complaint: sob Time Seen by Provider: 11/03/21 12:00 Source: patient, family, RN notes reviewed, old records reviewed Mode of arrival: wheelchair Limitations: no limitations - History of Present Illness Initial comments: This a 76-year-old male who presents emergency Department complaining shortness of breath. Patient states it started on become much worse on Wednesday. Patient denies any fever chills per patient states she's got the COVID vaccine. Patient states he has no underlying breathing problems. Patient states he is a peritoneal dialysis patient has history of pancreatitis and has high cholesterol. Patient denies any chest pain or palpitations. Patient denies any fever chills or cough. Patient denies any abdominal pain patient denies nausea vomiting or diarrhea. - Related Data Home Medications Medication Instructions Recorded Confirmed Atorvastatin [Lipitor] 80 mg PO HS 01/12/19 11/03/21 Calcium Acetate [PhosLo] 667 mg PO AC-TID 08/28/20 11/03/21 Famotidine [Pepcid] 20 mg PO HS PRN 04/18/21 11/03/21 dronabinoL [Marinol] 10 mg PO BID 07/19/21 11/03/21 Citalopram Hydrobromide [CeleXA] 20 mg PO DAILY 10/19/21 11/03/21 Diphenox-Atrop 2.5-0.025 mg 1 tab PO TID PRN 10/19/21 11/03/21 [Lomotil] Midodrine HCl [ProAmatine] 10 mg PO TID PRN 10/19/21 11/03/21 Aspirin EC [Ecotrin Low Dose] 81 mg PO HS 11/03/21 11/03/21 Megestrol [Megace] 80 mg PO TID 11/03/21 11/03/21 Metoprolol Tartrate [Lopressor] 12.5 mg PO DAILY 11/03/21 11/03/21 Previous Rx's Medication Instructions Recorded Potassium Chloride ER [K-Dur 20] 20 meq PO DAILY #30 tablet 09/18/21 Allergies Allergy/AdvReac Type Severity Reaction Status Date / Time heparin Allergy Severe HIT/LARRY-see Verified 11/03/21 11:49 comment cyclobenzaprine Allergy Rash/Hives Verified 11/03/21 11:49 [From Flexeril] Review of Systems ROS Statement: Those systems with pertinent positive or pertinent negative responses have been documented in the HPI. ROS Other: All systems not noted in ROS Statement are negative. Past Medical History Past Medical History: Dialysis, GERD/Reflux, Hearing Disorder / Deafness, Hyperlipidemia, Hypertension, Renal Disease Additional Past Medical History / Comment(s): AAA. Peritoneal dialysis port daily. Pancreatitis 12/2020. Colon polyps. History of Any Multi-Drug Resistant Organisms: None Reported Past Surgical History: Appendectomy, Cholecystectomy, Hernia Repair, Orthopedic Surgery Additional Past Surgical History / Comment(s): AAA stent placement, bilat inguinal hernia repair, peritoneal dialysis placement. ORIF Rt hand w/ pins. EGD, Colonoscopy. Past Anesthesia/Blood Transfusion Reactions: No Reported Reaction Past Psychological History: Depression Smoking Status: Former smoker Past Alcohol Use History: None Reported Past Drug Use History: None Reported - Past Family History Sister(s) Family Medical History: Cancer, Myocardial Infarction ([place]) Additional Family Medical History / Comment(s): esophageal ca Brother(s) Family Medical History: Pneumonia General Exam - General Exam Comments Initial Comments: GENERAL: Patient is well-developed and well-nourished. Patient is nontoxic and well-hy drated and is in mild distress. Pulse ox on room air is 94-96% consistently ENT: Neck is soft and supple. No significant lymphadenopathy is noted. Oropharynx is clear. Moist mucous membranes. Neck has full range of motion without eliciting any pain. EYES: The sclera were anicteric and conjunctiva were pink and moist. Extraocular movements were intact and pupils were equal round and reactive to light. Eyelids were unremarkable. PULMONARY: Unlabored respirations. Good breath sounds bilaterally. No audible rales rhonchi or wheezing was noted. CARDIOVASCULAR: There is a regular rate and rhythm without any murmurs gallops or rubs. ABDOMEN: Soft and nontender with normal bowel sounds. SKIN: Skin is clear with no lesions or rashes and otherwise unremarkable. NEUROLOGIC: Patient is alert and oriented x3. Cranial nerves II through XII are grossly intact. Motor and sensory are also intact. Normal speech, volume and content. Symmetrical smile. MUSCULOSKELETAL: Normal extremities with adequate strength and full range of motion. No lower extremity swelling or edema. No calf tenderness. LYMPHATICS: No significant lymphadenopathy is noted PSYCHIATRIC: Normal psychiatric evaluation. Limitations: no limitations Course Vital Signs 11/03/21 11/03/21 11/03/21 11:44 12:05 12:35 Temperature 98.3 F Pulse Rate 57 L 62 62 Respiratory 18 26 H 20 Rate Blood Pressure 84/61 88/66 117/74 O2 Sat by Pulse 97 98 100 Oximetry Medical Decision Making - Medical Decision Making Patient states his blood pressure systolically is at best in the low 100s. EKG shows normal sinus rhythm at 75 bpm RI interval 298 QRSs 104 Q-T intervals 434 QTC is 44. Patient's EKG shows no ST segment elevation. EKG is of poor quality. Chest x-ray shows no acute abnormality. Patient had some abnormal labs but when I looked up previous lab work he had the same abnormalities and those were worked up about 2 weeks ago and had the appropriate consults at that time. There is no source of infection nor does he complain of any fevers. Lactic acid is elevated I do believe this is probably secondary to his dehydration which she states occurs with him on a regular basis. I spoke with Dr. Starr he does want me to admit the patient admitted the patient I consult to nephrology and cardiothoracic surgery - Lab Data Result diagrams: 11/03/21 12:25 11/03/21 12:25 Lab Results 11/03/21 11/03/21 11/03/21 Range/Units 12:25 12:25 12:25 WBC 10.2 (3.8-10.6) k/uL RBC 3.92 L (4.30-5.90) m/uL Hgb 13.5 (13.0-17.5) gm/dL Hct 40.4 (39.0-53.0) % MCV 103.1 H (80.0-100.0) fL MCH 34.5 (25.0-35.0) pg MCHC 33.5 (31.0-37.0) g/dL RDW 14.9 (11.5-15.5) % Plt Count 224 D (150-450) k/uL MPV 9.3 Neutrophils % 76 % Lymphocytes % 18 % Monocytes % 5 % Eosinophils % 0 % Basophils % 0 % Neutrophils # 7.7 (1.3-7.7) k/uL Lymphocytes # 1.8 (1.0-4.8) k/uL Monocytes # 0.5 (0-1.0) k/uL Eosinophils # 0.0 (0-0.7) k/uL Basophils # 0.0 (0-0.2) k/uL Macrocytosis Slight PT 12.1 H (9.0-12.0) sec INR 1.2 H (<1.2) APTT 23.9 (22.0-30.0) sec D-Dimer 17.78 H (<0.60) mg/L FEU Sodium 131 L (137-145) mmol/L Potassium 5.5 H (3.5-5.1) mmol/L Chloride 94 L (98-107) mmol/L Carbon Dioxide 22 (22-30) mmol/L Anion Gap 15 mmol/L BUN 29 H (9-20) mg/dL Creatinine 6.64 H (0.66-1.25) mg/dL Est GFR (CKD-EPI)AfAm 8 (>60 ml/min/1.73 sqM) Est GFR (CKD-EPI)NonAf 7 (>60 ml/min/1.73 sqM) Glucose 126 H (74-99) mg/dL Plasma Lactic Acid Victor Hugo (0.7-2.0) mmol/L Calcium 9.5 (8.4-10.2) mg/dL Total Bilirubin 0.6 (0.2-1.3) mg/dL AST 46 (17-59) U/L ALT 43 (4-49) U/L Alkaline Phosphatase 110 (38-126) U/L Troponin I (0.000-0.034) ng/mL NT-Pro-B Natriuret Pep pg/mL Total Protein 6.1 L (6.3-8.2) g/dL Albumin 3.2 L (3.5-5.0) g/dL Coronavirus (PCR) (Not Detectd) 11/03/21 11/03/21 11/03/21 Range/Units 12:25 12:25 12:25 WBC (3.8-10.6) k/uL RBC (4.30-5.90) m/uL Hgb (13.0-17.5) gm/dL Hct (39.0-53.0) % MCV (80.0-100.0) fL MCH (25.0-35.0) pg MCHC (31.0-37.0) g/dL RDW (11.5-15.5) % Plt Count (150-450) k/uL MPV Neutrophils % % Lymphocytes % % Monocytes % % Eosinophils % % Basophils % % Neutrophils # (1.3-7.7) k/uL Lymphocytes # (1.0-4.8) k/uL Monocytes # (0-1.0) k/uL Eosinophils # (0-0.7) k/uL Basophils # (0-0.2) k/uL Macrocytosis PT (9.0-12.0) sec INR (<1.2) APTT (22.0-30.0) sec D-Dimer (<0.60) mg/L FEU Sodium (137-145) mmol/L Potassium (3.5-5.1) mmol/L Chloride (98-107) mmol/L Carbon Dioxide (22-30) mmol/L Anion Gap mmol/L BUN (9-20) mg/dL Creatinine (0.66-1.25) mg/dL Est GFR (CKD-EPI)AfAm (>60 ml/min/1.73 sqM) Est GFR (CKD-EPI)NonAf (>60 ml/min/1.73 sqM) Glucose (74-99) mg/dL Plasma Lactic Acid Victor Hugo 4.4 H* (0.7-2.0) mmol/L Calcium (8.4-10.2) mg/dL Total Bilirubin (0.2-1.3) mg/dL AST (17-59) U/L ALT (4-49) U/L Alkaline Phosphatase (38-126) U/L Troponin I 0.072 H* (0.000-0.034) ng/mL NT-Pro-B Natriuret Pep 99667 pg/mL Total Protein (6.3-8.2) g/dL Albumin (3.5-5.0) g/dL Coronavirus (PCR) (Not Detectd) 11/03/21 Range/Units 12:35 WBC (3.8-10.6) k/uL RBC (4.30-5.90) m/uL Hgb (13.0-17.5) gm/dL Hct (39.0-53.0) % MCV (80.0-100.0) fL MCH (25.0-35.0) pg MCHC (31.0-37.0) g/dL RDW (11.5-15.5) % Plt Count (150-450) k/uL MPV Neutrophils % % Lymphocytes % % Monocytes % % Eosinophils % % Basophils % % Neutrophils # (1.3-7.7) k/uL Lymphocytes # (1.0-4.8) k/uL Monocytes # (0-1.0) k/uL Eosinophils # (0-0.7) k/uL Basophils # (0-0.2) k/uL Macrocytosis PT (9.0-12.0) sec INR (<1.2) APTT (22.0-30.0) sec D-Dimer (<0.60) mg/L FEU Sodium (137-145) mmol/L Potassium (3.5-5.1) mmol/L Chloride (98-107) mmol/L Carbon Dioxide (22-30) mmol/L Anion Gap mmol/L BUN (9-20) mg/dL Creatinine (0.66-1.25) mg/dL Est GFR (CKD-EPI)AfAm (>60 ml/min/1.73 sqM) Est GFR (CKD-EPI)NonAf (>60 ml/min/1.73 sqM) Glucose (74-99) mg/dL Plasma Lactic Acid Victor Hugo (0.7-2.0) mmol/L Calcium (8.4-10.2) mg/dL Total Bilirubin (0.2-1.3) mg/dL AST (17-59) U/L ALT (4-49) U/L Alkaline Phosphatase (38-126) U/L Troponin I (0.000-0.034) ng/mL NT-Pro-B Natriuret Pep pg/mL Total Protein (6.3-8.2) g/dL Albumin (3.5-5.0) g/dL Coronavirus (PCR) Not Detected (Not Detectd) Disposition Clinical Impression: Dyspnea, Descending thoracic aortic aneurysm Disposition: ADMITTED IP TO THIS HOSP Referrals: Sebas Garza Jr, DO [Primary Care Provider] - 1-2 days Time of Disposition: 14:26
[2021-11-03 13:01] LABS: Albumin 3.2 g/dL (3.5-5.0); Calcium 9.5 mg/dL (8.4-10.2); Total Bilirubin 0.6 mg/dL (0.2-1.3); Total Protein 6.1 g/dL (6.3-8.2)
[2021-11-03 13:03] LABS: Potassium 5.5 mmol/L (3.5-5.1)
[2021-11-03 13:06] LABS: INR 1.2 (<1.2); Partial Thromboplastin Time 23.9 sec (22.0-30.0); Prothrombin Time 12.1 sec (9.0-12.0)
[2021-11-03 13:14] LABS: Basophils % (A) 0 %; Eosinophils % (A) 0 %; HCT 40.4 % (39.0-53.0); HGB 13.5 gm/dL (13.0-17.5); Lymphocytes # (A) 1.8 k/uL (1.0-4.8); Lymphocytes % (A) 18 %; MCH 34.5 pg (25.0-35.0); MCHC 33.5 g/dL (31.0-37.0); MCV 103.1 fL (80.0-100.0); Macrocytosis Slight; Mean Platelet Volume 9.3; Monocytes # (A) 0.5 k/uL (0-1.0); Monocytes % (A) 5 %; Neutrophils # (A) 7.7 k/uL (1.3-7.7); Neutrophils % (A) 76 %; RBC 3.92 m/uL (4.30-5.90); RDW 14.9 % (11.5-15.5); WBC 10.2 k/uL (3.8-10.6)
[2021-11-03 13:20] LABS: Platelet Count 224 k/uL (150-450)
--- NOTE | 2021-11-03 13:23 | XR ---
EXAMINATION TYPE: XR chest 2V DATE OF EXAM: 11/03/2021 COMPARISON: Chest x-ray October 19, 2021 HISTORY: Difficulty in breathing. TECHNIQUE: Frontal and lateral views of the chest are obtained. FINDINGS: The osseous structures are demineralized. There is chronic emphysematous change without blakely spicious new focal airspace opacity, pleural effusion, or pneumothorax seen bilaterally. Cardiac silh ouette size stable and within normal limits. Stent graft in the proximal abdominal aorta redemonstrat ed. Cholecystectomy clips again seen. Small degree of pneumoperitoneum may be present along the anter ior right hemidiaphragm on all views obtained. IMPRESSION: Chronic changes without acute pulmonary process. Suspect new degree of pneumoperitoneum. Case discussed with the ordering ER physician. Patient undergoes daily peritoneal dialysis which like ly accounts for finding of pneumoperitoneum.
[2021-11-03] MEDS ORDERED: SODIUM CHLORIDE 0.9% 1,000 ML IV ONE (14:30)
[2021-11-03] MEDS: DIALYSIS (PERIT 1.5%) 2,000 ML 30 G/2,000 ML BAG INTRAPERIT SCH (18:12)
[2021-11-03] MEDS ORDERED: FAMOTIDINE 20 MG TAB PO PRN (22:00)
[2021-11-03] MEDS ORDERED: DIPHENOX-ATROP 2.5-0.025 MG 1 EACH TAB PO PRN (22:00)
[2021-11-03] MEDS ORDERED: MIDODRINE 5 MG TAB PO PRN (22:00)
[2021-11-04] MEDS: DIALYSIS (PERIT 1.5%) 2,000 ML 30 G/2,000 ML BAG INTRAPERIT SCH ×3 (00:14→12:24)
[2021-11-04] MEDS: MEGESTROL 40 MG TAB PO SCH ×3 (00:16→16:07)
[2021-11-04] MEDS ORDERED: POTASSIUM CHLORIDE ER 20 MEQ TAB.ER PO SCH (09:00)
[2021-11-04] MEDS ORDERED: METOPROLOL TARTRATE 12.5 MG TAB PO SCH (09:00)
[2021-11-04] MEDS ORDERED: CITALOPRAM HYDROBROMIDE 20 MG TAB PO SCH (09:00)
[2021-11-04] MEDS: CALCIUM ACETATE 667 MG TAB PO SCH ×2 (09:25→13:57)
--- NOTE | 2021-11-04 10:39 | P.NPCON ---
History of Present Illness - Reason for Consult end stage renal disease - History of Present Illness Reason for consultation: End-stage renal disease History of present illness: Patient is a 76-year-old male seen in renal consultation for end-stage renal disease. He is maintained on peritoneal dialysis. Patient presented to the hospital with shortness of breath. Patient states his breathing is back to baseline. He feels well. No cough. No vomiting or diarrhea. Patient states he got dehydrated again. Recently his oral intake has been quite poor and he's been losing . Blood pressure stable. No problems with peritoneal dialysis. No constipation. No fever or chills. Currently on room air. No active complaints. Vital signs are stable. General: Cachectic appearing. HEENT: Head exam is unremarkable. LUNGS: Breath sounds decreased. HEART: Rate and Rhythm are regular. ABDOMEN: Soft, mild distention noted. EXTREMITITES: No edema. Past Medical History Past Medical History: Dialysis, GERD/Reflux, Hearing Disorder / Deafness, Hyperlipidemia, Hypertension, Renal Disease Additional Past Medical History / Comment(s): AAA. Peritoneal dialysis port daily. Pancreatitis 12/2020. Colon polyps. History of Any Multi-Drug Resistant Organisms: None Reported Past Surgical History: Appendectomy, Cholecystectomy, Hernia Repair, Orthopedic Surgery Additional Past Surgical History / Comment(s): AAA stent placement, bilat inguinal hernia repair, peritoneal dialysis placement. ORIF Rt hand w/ pins. EGD, Colonoscopy. Past Anesthesia/Blood Transfusion Reactions: No Reported Reaction Past Psychological History: Depression Smoking Status: Former smoker Past Alcohol Use History: None Reported Additional Past Alcohol Use History / Comment(s): smoked 3 years, quit 1990. Past Drug Use History: None Reported - Past Family History Sister(s) Family Medical History: Cancer, Myocardial Infarction ([place]) Additional Family Medical History / Comment(s): esophageal ca Brother(s) Family Medical History: Pneumonia Medications and Allergies Home Medications Medication Instructions Recorded Confirmed Type Atorvastatin [Lipitor] 80 mg PO HS 01/12/19 11/03/21 History Calcium Acetate [PhosLo] 667 mg PO AC-TID 08/28/20 11/03/21 History Famotidine [Pepcid] 20 mg PO HS PRN 04/18/21 11/03/21 History dronabinoL [Marinol] 10 mg PO BID 07/19/21 11/03/21 History Potassium Chloride ER [K-Dur 20] 20 meq PO DAILY #30 tablet 09/18/21 11/03/21 Rx Citalopram Hydrobromide [CeleXA] 20 mg PO DAILY 10/19/21 11/03/21 History Diphenox-Atrop 2.5-0.025 mg 1 tab PO TID PRN 10/19/21 11/03/21 History [Lomotil] Midodrine HCl [ProAmatine] 10 mg PO TID PRN 10/19/21 11/03/21 History Aspirin EC [Ecotrin Low Dose] 81 mg PO HS 11/03/21 11/03/21 History Megestrol [Megace] 80 mg PO TID 11/03/21 11/03/21 History Metoprolol Tartrate [Lopressor] 12.5 mg PO DAILY 11/03/21 11/03/21 History Allergies Allergy/AdvReac Type Severity Reaction Status Date / Time heparin Allergy Severe HIT/LARRY-see Verified 11/03/21 11:49 comment cyclobenzaprine Allergy Rash/Hives Verified 11/03/21 11:49 [From Flexeril] Physical Exam Vitals: Vital Signs Temp Pulse Pulse Resp BP BP Pulse Ox 11/04/21 07:00 97.6 F 60 16 120/70 100 11/04/21 06:10 97.5 F L 64 16 104/73 100 11/04/21 01:48 97.7 F 57 L 16 129/80 100 11/03/21 22:40 97.7 F 61 16 144/90 100 11/03/21 18:56 97.8 F 75 18 130/84 100 11/03/21 17:47 61 18 129/77 100 11/03/21 15:41 61 18 126/90 100 11/03/21 14:28 59 L 18 136/73 100 11/03/21 12:35 62 20 117/74 100 11/03/21 12:05 62 26 H 88/66 98 11/03/21 11:44 98.3 F 57 L 18 84/61 97 Intake and Output 11/03/21 11/04/21 11/04/21 22:59 06:59 14:59 Intake Total 90 Balance 90 Intake: Oral 90 Other: Voiding Method Toilet Toilet Toilet # Voids 1 1 Weight 41.277 kg Results - Lab Results Most recent lab results Calcium 9.5 mg/dL (8.4-10.2) 11/03/21 12:25 11/03/21 12:25 11/03/21 12:25 Assessment and Plan Plan: Assessment: 1. End-stage renal disease maintained on peritoneal dialysis. 2. Hypovolemia from poor intake. 3. Chronic kidney disease mineral bone disease maintained on PhosLo. 4. Hypovolemic hyponatremia. 5. Mild hyperkalemia. This was a hemolyzed sample. 6. History of aortic aneurysm. Plan: Maintain 2 L exchanges every 6 hours as 1.5% dextrose solution. Encourage oral intake. Check BMP today. Thank you for the consultation. I will continue to follow the patient with you during his hospital stay.
[2021-11-04] MEDS ORDERED: PANTOPRAZOLE 40 MG/10 ML VIAL IVP SCH (10:45)
[2021-11-04 11:19] VITALS: BMI 14.6
[2021-11-04 11:48] LABS: African American GFR (CKD) 8 (>60 ml/min/1.73 sqM); Anion Gap 7 mmol/L; Blood Urea Nitrogen 30 mg/dL (9-20); Calcium 8.5 mg/dL (8.4-10.2); Carbon Dioxide 28 mmol/L (22-30); Chloride 95 mmol/L (98-107); Glucose 86 mg/dL (74-99); Magnesium 1.8 mg/dL (1.6-2.3); Non-African American GFR(CKD) 7 (>60 ml/min/1.73 sqM); Potassium 4.7 mmol/L (3.5-5.1); Sodium 130 mmol/L (137-145)
--- NOTE | 2021-11-04 14:05 | P.GSCN ---
<Suman Pruitt - Last Filed: 11/04/21 13:58> History of Present Illness Consult date: 11/04/21 Reason for Consult: Known history of descending thoracic aortic aneurysm Requesting physician: Elio Souza History of present illness: This is 76-year-old gentleman who follows with Dr. Sebas Garza on an outpatient basis for his primary care service. His past medical history significant for hypertension, hyperlipidemia, end-stage renal disease with peritoneal dialysis daily, history of abdominal aortic aneurysm with previous stent placement, history of shingles in June 2021, medical debility with a recent 40 pound weight loss over a 6 month period, hearing disorder, depression, GERD, and remote history of tobacco abuse in which he is quit smoking around 40 years ago. 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 During that admission he was recommended to maintain tight blood pressure control with no surgical intervention or to. He presented to the emergency department here [facility] yesterday 11/03/2021 with complaints of shortness of breath. He reports his shortness of breath came on over a 2-3 day period and he decided to come to the emergency department to get further evaluated. He denies any recent fever, chills, cough, chest pain, chest pressure, nausea, vomiting, diarrhea, constipation, headache, hematemesis, or hemoptysis. He does report though that he has not been eating or drinking very much over the past 2-3 days. The patient does report that he has continued his daily peritoneal dialysis treatment. In the emergency department a chest x-ray was completed which demonstrated chronic changes without any acute pulmonary process with a suspected new degree of pneumoperitoneum. Laboratory results demonstrated a WBC count of 10.2, hemoglobin 13.5, hematocrit 40.4, platelets 224, PT 12.1, INR 1.2, d-dimer 17.78, sodium 131, potassium 5.5, BUN 29, creatinine 6.64, plasma lactic acid 4.4, proBNP 31,500, and a troponin of 0.072. The patient reports he has been vaccinated for COVID-19 and of note his Coronavirus PCR showed not detected. The patient today reports his breathing is back to baseline and on assessment he was sitting up in bed eating his breakfast and reports he needs to start eating more while at home. Subsequently, due to the patient's known descending thoracic aortic aneurysm a consult was placed cardiothoracic surgery service for further evaluation and treatment recommendations. Review of Systems A 14 point review of systems was completed was negative except as mentioned in HPI. Past Medical History Past Medical History: Dialysis, GERD/Reflux, Hearing Disorder / Deafness, Hyperlipidemia, Hypertension, Renal Disease Additional Past Medical History / Comment(s): AAA. Peritoneal dialysis port daily. Pancreatitis 12/2020. Colon polyps. History of Any Multi-Drug Resistant Organisms: None Reported Past Surgical History: Appendectomy, Cholecystectomy, Hernia Repair, Orthopedic Surgery Additional Past Surgical History / Comment(s): AAA stent placement, bilat inguinal hernia repair, peritoneal dialysis placement. ORIF Rt hand w/ pins. EGD, Colonoscopy. Past Anesthesia/Blood Transfusion Reactions: No Reported Reaction Past Psychological History: Depression Smoking Status: Former smoker Past Alcohol Use History: None Reported Additional Past Alcohol Use History / Comment(s): smoked 3 years, quit 1990 est. Past Drug Use History: None Reported - Past Family History Sister(s) Family Medical History: Cancer, Myocardial Infarction ([place]) Additional Family Medical History / Comment(s): esophageal ca Brother(s) Family Medical History: Pneumonia Medications and Allergies Home Medications Medication Instructions Recorded Confirmed Type Atorvastatin [Lipitor] 80 mg PO HS 01/12/19 11/03/21 History Calcium Acetate [PhosLo] 667 mg PO AC-TID 08/28/20 11/03/21 History Famotidine [Pepcid] 20 mg PO HS PRN 04/18/21 11/03/21 History dronabinoL [Marinol] 10 mg PO BID 07/19/21 11/03/21 History Potassium Chloride ER [K-Dur 20] 20 meq PO DAILY #30 tablet 09/18/21 11/03/21 Rx Citalopram Hydrobromide [CeleXA] 20 mg PO DAILY 10/19/21 11/03/21 History Diphenox-Atrop 2.5-0.025 mg 1 tab PO TID PRN 10/19/21 11/03/21 History [Lomotil] Midodrine HCl [ProAmatine] 10 mg PO TID PRN 10/19/21 11/03/21 History Aspirin EC [Ecotrin Low Dose] 81 mg PO HS 11/03/21 11/03/21 History Megestrol [Megace] 80 mg PO TID 11/03/21 11/03/21 History Metoprolol Tartrate [Lopressor] 12.5 mg PO DAILY 11/03/21 11/03/21 History Allergies Allergy/AdvReac Type Severity Reaction Status Date / Time heparin Allergy Severe HIT/LARRY-see Verified 11/03/21 11:49 comment cyclobenzaprine Allergy Rash/Hives Verified 11/03/21 11:49 [From Flexeril] Surgical - Exam Vital Signs Temp Pulse Resp BP Pulse Ox 98.3 F 57 L 18 84/61 97 11/03/21 11:44 11/03/21 11:44 11/03/21 11:44 11/03/21 11:44 11/03/21 11:44 Laying in bed on the cardiac observation unit, is cooperative, comfortable and in no acute distress. - General no distress, no pain, cachectic, chronically ill - Eyes PERRL, normal ocular movement, no pale, no icteric - ENT normal pinna, normal nares, normal mucosa, no congestion, decreased hearing, dentures - Neck Neck supple, no JVD. no masses, no bruits, trachea midline, no venous distension - Respiratory Lung sounds essentially clear throughout. Respirations are symmetrical and nonlabored. No wheezes, rhonchi or crackles. - Cardiovascular Regular rhythm and rate. S1 and S2 present, negative for S3, gallop or murmur. No edema present. Peripheral pulses palpable. - Abdomen Abdomen is soft, nontender and nondistended. Active bowel sounds present all 4 abdominal quadrants. Peritoneal dialysis catheter in place to his right lower quadrant abdomen. - Integumentary Skin is warm and dry. No clubbing or cyanosis is present. Pale. - Neurologic No focal deficits. normal coordination, normal sensation, no memory loss - Musculoskeletal Moves all 4 extremities with equal strength bilateral. - Psychiatric oriented to time, oriented to person, oriented to place, speech is normal, memory intact Results - Labs 11/03/21 12:25 11/04/21 11:00 Abnormal Lab Results - Last 24 Hours (Table) 11/03/21 11/03/21 11/03/21 Range/Units 12:25 12: 12:25 RBC 3.92 L (4.30-5.90) m/uL MCV 103.1 H (80.0-100.0) fL PT 12.1 H (9.0-12.0) sec INR 1.2 H (<1.2) D-Dimer 17.78 H (<0.60) mg/L FEU Sodium 131 L (137-145) mmol/L Potassium 5.5 H (3.5-5.1) mmol/L Chloride 94 L (98-107) mmol/L BUN 29 H (9-20) mg/dL Creatinine 6.64 H (0.66-1.25) mg/dL Glucose 126 H (74-99) mg/dL Plasma Lactic Acid Victor Hugo (0.7-2.0) mmol/L Troponin I (0.000-0.034) ng/mL Total Protein 6.1 L (6.3-8.2) g/dL Albumin 3.2 L (3.5-5.0) g/dL 11/03/21 11/03/21 11/04/21 Range/Units 12:25 12:25 11:00 RBC (4.30-5.90) m/uL MCV (80.0-100.0) fL PT (9.0-12.0) sec INR (<1.2) D-Dimer (<0.60) mg/L FEU Sodium 130 L (137-145) mmol/L Potassium (3.5-5.1) mmol/L Chloride 95 L (98-107) mmol/L BUN 30 H (9-20) mg/dL Creatinine 6.98 H (0.66-1.25) mg/dL Glucose (74-99) mg/dL Plasma Lactic Acid Victor Hugo 4.4 H* (0.7-2.0) mmol/L Troponin I 0.072 H* (0.000-0.034) ng/mL Total Protein (6.3-8.2) g/dL Albumin (3.5-5.0) g/dL Diabetes panel 11/03/21 11/04/21 Range/Units 12:25 11:00 Sodium 131 L 130 L (137-145) mmol/L Potassium 5.5 H 4.7 (3.5-5.1) mmol/L Chloride 94 L 95 L (98-107) mmol/L Carbon Dioxide 22 28 (22-30) mmol/L BUN 29 H 30 H (9-20) mg/dL Creatinine 6.64 H 6.98 H (0.66-1.25) mg/dL Glucose 126 H 86 (74-99) mg/dL Calcium 9.5 8.5 (8.4-10.2) mg/dL AST 46 (17-59) U/L ALT 43 (4-49) U/L Alkaline Phosphatase 110 (38-126) U/L Total Protein 6.1 L (6.3-8.2) g/dL Albumin 3.2 L (3.5-5.0) g/dL Calcium panel 11/03/21 11/04/21 Range/Units 12:25 11:00 Calcium 9.5 8.5 (8.4-10.2) mg/dL Albumin 3.2 L (3.5-5.0) g/dL Pituitary panel 11/03/21 11/04/21 Range/Units 12:25 11:00 Sodium 131 L 130 L (137-145) mmol/L Potassium 5.5 H 4.7 (3.5-5.1) mmol/L Chloride 94 L 95 L (98-107) mmol/L Carbon Dioxide 22 28 (22-30) mmol/L BUN 29 H 30 H (9-20) mg/dL Creatinine 6.64 H 6.98 H (0.66-1.25) mg/dL Glucose 126 H 86 (74-99) mg/dL Calcium 9.5 8.5 (8.4-10.2) mg/dL Adrenal panel 11/03/21 11/04/21 Range/Units 12:25 11:00 Sodium 131 L 130 L (137-145) mmol/L Potassium 5.5 H 4.7 (3.5-5.1) mmol/L Chloride 94 L 95 L (98-107) mmol/L Carbon Dioxide 22 28 (22-30) mmol/L BUN 29 H 30 H (9-20) mg/dL Creatinine 6.64 H 6.98 H (0.66-1.25) mg/dL Glucose 126 H 86 (74-99) mg/dL Calcium 9.5 8.5 (8.4-10.2) mg/dL Total Bilirubin 0.6 (0.2-1.3) mg/dL AST 46 (17-59) U/L ALT 43 (4-49) U/L Alkaline Phosphatase 110 (38-126) U/L Total Protein 6.1 L (6.3-8.2) g/dL Albumin 3.2 L (3.5-5.0) g/dL - Imaging Chest x-ray: report reviewed, image reviewed Assessment and Plan Assessment: 1. 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 Elevated troponin as high as 0.072 3. History of hypertension 4. End-stage renal disease, on peritoneal dialysis 5. Hyperlipidemia 6. History of abdominal aortic aneurysm, status post stenting 7. History of GERD 8. History of depression 9. Remote history of tobacco abuse, quit smoking over 40 years ago Plan: The patient was seen and examined at his bedside on the cardiac observation unit. His chart diagnostics reviewed. His case was discussed in detail with Dr. Wily Livingston from cardiothoracic surgery. Recommend tight blood pressure control. No surgical intervention is warranted at this time. The patient reports that he feels much better today and is back to his baseline with his breathing and denies any complaints of pain. Medical management and other comorbidities per primary care service. We will continue to follow this patient on an as needed basis. Thank you for this consult, please call for any further questions. Time with Patient: Greater than 30 <Matthias Gibbs R - Last Filed: 11/05/21 10:14> Surgical - Exam Vital Signs Temp Pulse Resp BP Pulse Ox 98.3 F 57 L 18 84/61 97 11/03/21 11:44 11/03/21 11:44 11/03/21 11:44 11/03/21 11:44 11/03/21 11:44 Results - Labs 11/03/21 12:25 11/04/21 11:00 Abnormal Lab Results - Last 24 Hours (Table) 11/04/21 Range/Units 11:00 Sodium 130 L (137-145) mmol/L Chloride 95 L (98-107) mmol/L BUN 30 H (9-20) mg/dL Creatinine 6.98 H (0.66-1.25) mg/dL Microbiology - Last 24 Hours (Table) 11/03/21 12:38 Blood Culture - Preliminary Blood No Growth after 24 hours 11/03/21 12:49 Blood Culture - Preliminary Blood No Growth after 24 hours Diabetes panel 11/04/21 Range/Units 11:00 Sodium 130 L (137-145) mmol/L Potassium 4.7 (3.5-5.1) mmol/L Chloride 95 L (98-107) mmol/L Carbon Dioxide 28 (22-30) mmol/L BUN 30 H (9-20) mg/dL Creatinine 6.98 H (0.66-1.25) mg/dL Glucose 86 (74-99) mg/dL Calcium 8.5 (8.4-10.2) mg/dL Calcium panel 11/04/21 Range/Units 11:00 Calcium 8.5 (8.4-10.2) mg/dL Pituitary panel 11/04/21 Range/Units 11:00 Sodium 130 L (137-145) mmol/L Potassium 4.7 (3.5-5.1) mmol/L Chloride 95 L (98-107) mmol/L Carbon Dioxide 28 (22-30) mmol/L BUN 30 H (9-20) mg/dL Creatinine 6.98 H (0.66-1.25) mg/dL Glucose 86 (74-99) mg/dL Calcium 8.5 (8.4-10.2) mg/dL Adrenal panel 11/04/21 Range/Units 11:00 Sodium 130 L (137-145) mmol/L Potassium 4.7 (3.5-5.1) mmol/L Chloride 95 L (98-107) mmol/L Carbon Dioxide 28 (22-30) mmol/L BUN 30 H (9-20) mg/dL Creatinine 6.98 H (0.66-1.25) mg/dL Glucose 86 (74-99) mg/dL Calcium 8.5 (8.4-10.2) mg/dL Assessment and Plan Assessment: cOMPUTED TOMOGRAPHY SCAN WAS REVIEWED. tHERE IS A FUNCTIONING STENT GRAFT IN THE DESCENDING THORACIC AORTIC. tHERE IS NO EVIDENCE OF LEAK.
--- NOTE | 2021-11-04 14:07 | P.HPIM ---
History of Present Illness H&P Date: 11/04/21 Chief Complaint: Dyspnea History and Physical and Discharge Summary This is a 76-year-old gentleman with known peritoneal dialysis, hypertension,abdominal aortic aneurysm status post stent placement, bilateral renal artery stents, moderate mitral regurgitation, former nicotine dependence. He lives alone as his is in hospice at [facility]. Poor diet intake. Presented to the ER with complaints of exertional shortness of breath and dehydration. Patient reports poor oral intake. Denies nausea or vomiting. Denies diarrhea or constipation, no abdominal pain. Denies problems with peritoneal dialysis. Denies syncope, chest pain, palpitations. Denies fever or chills. 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 Currently denies chest pain, palpitations or shortness of breath. Maintaining O2 sats in the 90s on room air. Denies lightheadedness, dizziness or focal deficits. Elevated lactic acid, suspect related to dehydration as patient afebrile, normal WBC. Review of Systems ROS Statement: Those systems with pertinent positive or pertinent negative responses have been documented in the HPI. ROS Other: All systems not noted in ROS Statement are negative. Past Medical History Past Medical History: Dialysis, GERD/Reflux, Hearing Disorder / Deafness, Hyperlipidemia, Hypertension, Renal Disease Additional Past Medical History / Comment(s): AAA. Peritoneal dialysis port daily. Pancreatitis 12/2020. Colon polyps. History of Any Multi-Drug Resistant Organisms: None Reported Past Surgical History: Appendectomy, Cholecystectomy, Hernia Repair, Orthopedic Surgery Additional Past Surgical History / Comment(s): AAA stent placement, bilat i nguinal hernia repair, peritoneal dialysis placement. ORIF Rt hand w/ pins. EGD, Colonoscopy. Past Anesthesia/Blood Transfusion Reactions: No Reported Reaction Past Psychological History: Depression Smoking Status: Former smoker Past Alcohol Use History: None Reported Additional Past Alcohol Use History / Comment(s): smoked 3 years, quit 1990 est. Past Drug Use History: None Reported - Past Family History Sister(s) Family Medical History: Cancer, Myocardial Infarction ([place]) Additional Family Medical History / Comment(s): esophageal ca Brother(s) Family Medical History: Pneumonia Medications and Allergies Home Medications Medication Instructions Recorded Confirmed Type Atorvastatin [Lipitor] 80 mg PO HS 01/12/19 11/03/21 History Calcium Acetate [PhosLo] 667 mg PO AC-TID 08/28/20 11/03/21 History Famotidine [Pepcid] 20 mg PO HS PRN 04/18/21 11/03/21 History dronabinoL [Marinol] 10 mg PO BID 07/19/21 11/03/21 History Potassium Chloride ER [K-Dur 20] 20 meq PO DAILY #30 tablet 09/18/21 11/03/21 Rx Citalopram Hydrobromide [CeleXA] 20 mg PO DAILY 10/19/21 11/03/21 History Diphenox-Atrop 2.5-0.025 mg 1 tab PO TID PRN 10/19/21 11/03/21 History [Lomotil] Midodrine HCl [ProAmatine] 10 mg PO TID PRN 10/19/21 11/03/21 History Aspirin EC [Ecotrin Low Dose] 81 mg PO HS 11/03/21 11/03/21 History Megestrol [Megace] 80 mg PO TID 11/03/21 11/03/21 History Metoprolol Tartrate [Lopressor] 12.5 mg PO DAILY 11/03/21 11/03/21 History Allergies Allergy/AdvReac Type Severity Reaction Status Date / Time heparin Allergy Severe HIT/LARRY-see Verified 11/03/21 11:49 comment cyclobenzaprine Allergy Rash/Hives Verified 11/03/21 11:49 [From Flexeril] Physical Exam Vitals: Vital Signs Temp Pulse Pulse Resp BP BP Pulse Ox 11/04/21 07:00 97.6 F 60 16 120/70 100 11/04/21 06:10 97.5 F L 64 16 104/73 100 11/04/21 01:48 97.7 F 57 L 16 129/80 100 11/03/21 22:40 97.7 F 61 16 144/90 100 11/03/21 18:56 97.8 F 75 18 130/84 100 11/03/21 17:47 61 18 129/77 100 11/03/21 15:41 61 18 126/90 100 11/03/21 14:28 59 L 18 136/73 100 11/03/21 12:35 62 20 117/74 100 11/03/21 12:05 62 26 H 88/66 98 11/03/21 11:44 98.3 F 57 L 18 84/61 97 Intake and Output 11/03/21 11/04/21 11/04/21 22:59 06:59 14:59 Intake Total 90 Balance 90 Intake: Oral 90 Other: Voiding Method Toilet Toilet Toilet # Voids 1 1 Weight 41.277 kg 41.277 kg - Exam General: Cachectic ,Sitting up in bed, alert and oriented 3, hard of hearing. Neck: The neck is supple,no JVD. Cardiovascular: S1S2 is normal,regular rate and rhythm. No murmur, rub or gallop is appreciated. Respiratory: Lungs are clear to auscultation bilaterally, respirations are non-labored, breath sounds are equal. Gastrointestinal: Soft, non-distended, non-tender abdomen without masses or organomegaly noted. no rebound or guarding present. Positive Bowel sounds. Musculoskeletal: Normal ROM, no tenderness, no pedal edema, no calf tenderness or swelling. Neurological: CN II-XII intact, strength and sensation grossly intact. Skin: Skin is warm and dry, no rash Results CBC & Chem 7: 11/03/21 12:25 11/04/21 11:00 Labs: Abnormal Lab Results - Last 24 Hours (Table) 11/03/21 11/03/21 11/03/21 Range/Units 12:25 12:25 12:25 RBC 3.92 L (4.30-5.90) m/uL MCV 103.1 H (80.0-100.0) fL PT 12.1 H (9.0-12.0) sec INR 1.2 H (<1.2) D-Dimer 17.78 H (<0.60) mg/L FEU Sodium 131 L (137-145) mmol/L Potassium 5.5 H (3.5-5.1) mmol/L Chloride 94 L (98-107) mmol/L BUN 29 H (9-20) mg/dL Creatinine 6.64 H (0.66-1.25) mg/dL Glucose 126 H (74-99) mg/dL Plasma Lactic Acid Victor Hugo (0.7-2.0) mmol/L Troponin I (0.000-0.034) ng/mL Total Protein 6.1 L (6.3-8.2) g/dL Albumin 3.2 L (3.5-5.0) g/dL 11/03/21 11/03/21 Range/Units 12:25 12:25 RBC (4.30-5.90) m/uL MCV (80.0-100.0) fL PT (9.0-12.0) sec INR (<1.2) D-Dimer (<0.60) mg/L FEU Sodium (137-145) mmol/L Potassium (3.5-5.1) mmol/L Chloride (98-107) mmol/L BUN (9-20) mg/dL Creatinine (0.66-1.25) mg/dL Glucose (74-99) mg/dL Plasma Lactic Acid Victor Hugo 4.4 H* (0.7-2.0) mmol/L Troponin I 0.072 H* (0.000-0.034) ng/mL Total Protein (6.3-8.2) g/dL Albumin (3.5-5.0) g/dL Thrombosis Risk Factor Assmnt - Choose All That Apply Each Risk Factor Represents 3 Points: Age 75 years or older Thrombosis Risk Factor Assessment Total Risk Factor Score: 3 Thrombosis Risk Factor Assessment Level: Moderate Risk Assessment and Plan Assessment: Dehydration, hypovolemia secondary to poor oral intake, continues losing weight, weight decreased to 41.27 kg. 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 Elevated troponin, (prior admission up to 0.077 with echo reporting normal LV function, EF 55-60% and acute coronary syndrome was ruled out previously as per cardiology) End-stage renal disease, on peritoneal dialysis Severe protein malnutrition, secondary to Poor oral intake History of shingles Anemia of chronic disease, iron deficient Former nicotine dependence Moderate mitral regurgitation Mild pulmonary hypertension Plan: Continue on current medication regime ,monitoring and symptomatic treatment. Received gentle IV fluid hydration, continues on peritoneal dialysis .Patient has been cleared for discharge by nephrology. PCP cancelled consult for cardiothoracic surgery. Patient will be discharged home today in a stable condition with guarded prognosis. Protein shakes 3 times daily, Meals on Wheels recommended. Patient to continue with home care. Discharge Medication List Atorvastatin [Lipitor] 80 mg PO HS 01/12/19 [History] Calcium Acetate [PhosLo] 667 mg PO AC-TID 08/28/20 [History] Famotidine [Pepcid] 20 mg PO HS PRN 04/18/21 [History] dronabinoL [Marinol] 10 mg PO BID 07/19/21 [History] Potassium Chloride ER [K-Dur 20] 20 meq PO DAILY #30 tablet 09/18/21 [Rx] Citalopram Hydrobromide [CeleXA] 20 mg PO DAILY 10/19/21 [History] Diphenox-Atrop 2.5-0.025 mg [Lomotil] 1 tab PO TID PRN 10/19/21 [History] Midodrine HCl [ProAmatine] 10 mg PO TID PRN 10/19/21 [History] Aspirin EC [Ecotrin Low Dose] 81 mg PO HS 11/03/21 [History] Megestrol [Megace] 80 mg PO TID 11/03/21 [History] Metoprolol Tartrate [Lopressor] 12.5 mg PO DAILY 11/03/21 [History] The impression and plan of care has been dictated as directed. : I performed a history and examination of this patient, discussed the same with the dictator. I agree with the dictator's note ,documented as a scribe. Any additional findings or plans will be noted.
[2021-11-04 16:48] VITALS: BP 131/72; PULSE 57; RESP 18; TEMP 97.5
[2021-11-04] MEDS ORDERED: ATORVASTATIN 80 MG TAB PO SCH (21:00)
[2021-11-04] MEDS ORDERED: ASPIRIN 81 MG PO SCH (21:00)
== END 2021-11-04 17:45 | disposition home health service (06) ==
LOC: EC 11:42 → 6NMEDSUR 14:35
PROVIDERS: ADMIT Family Medicine; ATTEND Family Medicine
DX: E86.0 Dehydration (principal); E86.1 Hypovolemia; E87.1 Hypo-osmolality and hyponatremia; R06.02 Shortness of breath; K85.90 Acute pancreatitis without necrosis or infection, unspecified; E78.00 Pure hypercholesterolemia, unspecified; I12.0 Hypertensive chronic kidney disease with stage 5 chronic kidney disease or end stage renal disease; N18.6 End stage renal disease; E78.5 Hyperlipidemia, unspecified; H91.90 Unspecified hearing loss, unspecified ear; K21.9 Gastro-esophageal reflux disease without esophagitis; I71.4 Abdominal aortic aneurysm, without rupture; F32.A Depression, unspecified; R79.89 Other specified abnormal findings of blood chemistry; M89.8X9 Other specified disorders of bone, unspecified site; E87.5 Hyperkalemia; I34.0 Nonrheumatic mitral (valve) insufficiency; E43 Unspecified severe protein-calorie malnutrition; D63.8 Anemia in other chronic diseases classified elsewhere; E61.1 Iron deficiency; I27.20 Pulmonary hypertension, unspecified; R53.81 Other malaise; R63.4 Abnormal weight loss; R77.8 Other specified abnormalities of plasma proteins; E87.2 Acidosis; Z20.822 Contact with and (suspected) exposure to COVID-19; Z99.2 Dependence on renal dialysis; Z79.899 Other long term (current) drug therapy; Z79.82 Long term (current) use of aspirin; Z88.8 Allergy status to other drugs, medicaments and biological substances; Z71.3 Dietary counseling and surveillance; Z87.19 Personal history of other diseases of the digestive system; Z87.891 Personal history of nicotine dependence; Z90.49 Acquired absence of other specified parts of digestive tract; Z86.79 Personal history of other diseases of the circulatory system; Z86.19 Personal history of other infectious and parasitic diseases; Z95.9 Presence of cardiac and vascular implant and graft, unspecified; Z80.0 Family history of malignant neoplasm of digestive organs; Z82.49 Family history of ischemic heart disease and other diseases of the circulatory system; Z83.6 Family history of other diseases of the respiratory system
CPT/HCPCS: 96361 ×3; 96374; 99285; 36415; 93005; 85379; 83880; 80053; 80048; 83605; 83735; 84484; 85025; 85610; 85730; 87040; 87635; 71046; G0378 ×2; Q0167; A4722 ×2; S0179; C9113

== ENCOUNTER 2021-11-10 17:54 | Inpatient (IN) | payer MEDICARE ==
--- NOTE | 2021-11-10 18:38 | ED ---
Altered Mental Status HPI - General Stated Complaint: weakness, vomiting, diarrhea Time Seen by Provider: 11/10/21 18:38 - History of Present Illness Initial Comments: Yevgeniy is a critically ill 76-year-old male brought in to the emergency department for generalized weakness, diarrhea, not eating. History is provided by his neighbor who reports the patient was admitted for failure to thrive last week, he is progressively worsened - Related Data Home Medications Medication Instructions Recorded Confirmed Atorvastatin [Lipitor] 80 mg PO HS 01/12/19 11/10/21 Calcium Acetate [PhosLo] 667 mg PO AC-TID 08/28/20 11/10/21 Famotidine [Pepcid] 20 mg PO HS PRN 04/18/21 11/10/21 dronabinoL [Marinol] 10 mg PO BID 07/19/21 11/10/21 Citalopram Hydrobromide [CeleXA] 20 mg PO DAILY 10/19/21 11/10/21 Diphenox-Atrop 2.5-0.025 mg 1 tab PO TID PRN 10/19/21 11/10/21 [Lomotil] Midodrine HCl [ProAmatine] 10 mg PO TID PRN 10/19/21 11/10/21 Aspirin EC [Ecotrin Low Dose] 81 mg PO HS 11/03/21 11/10/21 Megestrol [Megace] 80 mg PO TID 11/03/21 11/10/21 Metoprolol Tartrate [Lopressor] 12.5 mg PO DAILY 11/03/21 11/10/21 Previous Rx's Medication Instructions Recorded Potassium Chloride ER [K-Dur 20] 20 meq PO DAILY #30 tablet 09/18/21 Allergies Allergy/AdvReac Type Severity Reaction Status Date / Time heparin Allergy Severe HIT/LARRY-see Verified 11/10/21 20:34 comment cyclobenzaprine Allergy Rash/Hives Verified 11/10/21 20:34 [From Flexeril] Review of Systems ROS Statement: Those systems with pertinent positive or pertinent negative responses have been documented in the HPI. ROS Other: All systems not noted in ROS Statement are negative. Past Medical History Past Medical History: Dialysis, GERD/Reflux, Hearing Disorder / Deafness, Hyperlipidemia, Hypertension, Renal Disease Additional Past Medical History / Comment(s): AAA. Peritoneal dialysis port daily. Pancreatitis 12/2020. Colon polyps. History of Any Multi-Drug Resistant Organisms: None Reported Past Surgical History: Appendectomy, Cholecystectomy, Hernia Repair, Orthopedic Surgery Additional Past Surgical History / Comment(s): AAA stent placement, bilat inguinal hernia repair, peritoneal dialysis placement. ORIF Rt hand w/ pins. EGD, Colonoscopy. Past Anesthesia/Blood Transfusion Reactions: No Reported Reaction Past Psychological History: Depression Smoking Status: Former smoker Past Alcohol Use History: None Reported Additional Past Alcohol Use History / Comment(s): smoked 3 years, quit 1990 est. Past Drug Use History: None Reported - Past Family History Sister(s) Family Medical History: Cancer, Myocardial Infarction ([place]) Additional Family Medical History / Comment(s): esophageal ca Brother(s) Family Medical History: Pneumonia General Exam - General Exam Comments Initial Comments: Physical Exam GENERAL: Ill appearing HENT: Temporal wasting EYES: Pupils dilated PULMONARY: decreased respiratory effort, agonal breaths CARDIOVASCULAR: Tachycardic, regular ABDOMEN: Scaphoid Peritoneal dialysis cath in place SKIN: Dehydration : Deferred NEUROLOGIC: Unresponsive MUSCULOSKELETAL: Atrophy PSYCHIATRIC: Unable to assess Course Vital Signs 11/10/21 11/10/21 11/10/21 18:30 19:06 19:55 Temperature 97.4 F L Pulse Rate 98 99 62 Respiratory 6 L 18 20 Rate Blood Pressure 70/41 118/91 130/64 O2 Sat by Pulse 92 L 99 99 Oximetry Medical Decision Making - Medical Decision Making Patient was seen and evaluated in the triage guillory, patient was unresponsive and was taken immediately to resuscitation, patient's brother Rocky was contacted via telephone. They're aware that his brother is very critically ill states that at this point he would like to make his brother Comfort Care no aggressive care indictated as the patient has failure to thrive and no longer wants to be alive Labs were obtained and patient was given some fluids Labs resulted with critical hyperkalemia Again discuss care with patient's brother, patient somewhat more responsive after fluids however other confirms he does not want any aggressive care. No medications just comfort. Patient care was discussed with the patient's primary care provider who is very familiar with the patient, apparently the patient's is on hospice at a [place] [facility] and the patient has lost any will to live. There's questions of whether the patient has even been doing his peritoneal dialysis. He agrees with the plan for comfort measures only. - Lab Data Result diagrams: 11/10/21 18:47 11/10/21 18:47 Lab Results 11/10/21 11/10/21 11/10/21 Range/Units 18:39 18:47 18:47 WBC 11.0 H (3.8-10.6) k/uL RBC 3.63 L (4.30-5.90) m/uL Hgb 12.5 L (13.0-17.5) gm/dL Hct 40.6 (39.0-53.0) % MCV 111.6 H D (80.0-100.0) fL MCH 34.3 (25.0-35.0) pg MCHC 30.8 L (31.0-37.0) g/dL RDW 14.7 (11.5-15.5) % Plt Count 184 (150-450) k/uL MPV 9.3 Neutrophils % 74 % Lymphocytes % 21 % Monocytes % 3 % Eosinophils % 0 % Basophils % 0 % Neutrophils # 8.2 H (1.3-7.7) k/uL Lymphocytes # 2.3 (1.0-4.8) k/uL Monocytes # 0.4 (0-1.0) k/uL Eosinophils # 0.0 (0-0.7) k/uL Basophils # 0.0 (0-0.2) k/uL Hypochromasia Moderate Macrocytosis Marked A PT 12.3 H (9.0-12.0) sec INR 1.2 H (<1.2) APTT 22.4 (22.0-30.0) sec Sodium (137-145) mmol/L Potassium (3.5-5.1) mmol/L Chloride (98-107) mmol/L Carbon Dioxide (22-30) mmol/L Anion Gap mmol/L BUN (9-20) mg/dL Creatinine (0.66-1.25) mg/dL Est GFR (CKD-EPI)AfAm (>60 ml/min/1.73 sqM) Est GFR (CKD-EPI)NonAf (>60 ml/min/1.73 sqM) Glucose (74-99) mg/dL POC Glucose (mg/dL) 96 (75-99) mg/dL POC Glu Vegetable Harvest Worker ID Kamari Arora Calcium (8.4-10.2) mg/dL Total Bilirubin (0.2-1.3) mg/dL AST (17-59) U/L ALT (4-49) U/L Alkaline Phosphatase (38-126) U/L Total Protein (6.3-8.2) g/dL Albumin (3.5-5.0) g/dL 11/10/21 Range/Units 18:47 WBC (3.8-10.6) k/uL RBC (4.30-5.90) m/uL Hgb (13.0-17.5) gm/dL Hct (39.0-53.0) % MCV (80.0-100.0) fL MCH (25.0-35.0) pg MCHC (31.0-37.0) g/dL RDW (11.5-15.5) % Plt Count (150-450) k/uL MPV Neutrophils % % Lymphocytes % % Monocytes % % Eosinophils % % Basophils % % Neutrophils # (1.3-7.7) k/uL Lymphocytes # (1.0-4.8) k/uL Monocytes # (0-1.0) k/uL Eosinophils # (0-0.7) k/uL Basophils # (0-0.2) k/uL Hypochromasia Macrocytosis PT (9.0-12.0) sec INR (<1.2) APTT (22.0-30.0) sec Sodium 131 L (137-145) mmol/L Potassium 7.6 H* (3.5-5.1) mmol/L Chloride 96 L (98-107) mmol/L Carbon Dioxide 12 L (22-30) mmol/L Anion Gap 23 mmol/L BUN 44 H (9-20) mg/dL Creatinine 8.70 H* (0.66-1.25) mg/dL Est GFR (CKD-EPI)AfAm 6 (>60 ml/min/1.73 sqM) Est GFR (CKD-EPI)NonAf 5 (>60 ml/min/1.73 sqM) Glucose 103 H (74-99) mg/dL POC Glucose (mg/dL) (75-99) mg/dL POC Glu Vegetable Harvest Worker ID Calcium 9.4 (8.4-10.2) mg/dL Total Bilirubin 1.0 (0.2-1.3) mg/dL AST 145 H (17-59) U/L ALT 134 H (4-49) U/L Alkaline Phosphatase 157 H (38-126) U/L Total Protein 6.2 L (6.3-8.2) g/dL Albumin 3.4 L (3.5-5.0) g/dL Critical Care Time Critical Care Time: Yes Total Critical Care Time: 30 Critical Care Time: Critical Care Time Critical care time was exclusive of separately billable procedures and treating other patients and teaching time. Critical care was necessary to treat or prevent imminent or life-threatening deterioration. Given the critical condition in which the patient arrived, the patient was immediately assessed by myself and the nurse, and cardiac monitoring initiated due to the potential for rapid decompensation of the patient's clinical condition. During the course of the patients stay, I spent a considerable amount of time at the bedside performing serial re-evaluations of the patient's hemodynamic and clinical status because of the recognized potential threat to life or limb in this condition. I then had a chance to review not only all of the available current laboratory and radiographic studies obtained today, but I also reviewed old records available to me at the time. Additionally, any ancillary information available including sofa back upholsterer records were reviewed. Sequential vital signs were obtained. Disposition Clinical Impression: ESRD (end stage renal disease), End of life care Disposition: ADMITTED IP TO THIS [facility] Condition: Critical Is patient prescribed a controlled substance at d/c from ED?: No
[2021-11-10] MEDS ORDERED: SODIUM CHLORIDE 0.9% 1,000 ML IV ONE (18:39)
[2021-11-10 18:46] LABS: Glucose,Whole Blood 96 mg/dL (75-99)
[2021-11-10 19:08] LABS: Albumin 3.4 g/dL (3.5-5.0); Calcium 9.4 mg/dL (8.4-10.2); Total Protein 6.2 g/dL (6.3-8.2)
[2021-11-10 19:09] LABS: Potassium 7.6 mmol/L (3.5-5.1)
[2021-11-10 19:15] LABS: INR 1.2 (<1.2); Partial Thromboplastin Time 22.4 sec (22.0-30.0); Prothrombin Time 12.3 sec (9.0-12.0)
[2021-11-10 19:22] LABS: Basophils % (A) 0 %; Eosinophils % (A) 0 %; HCT 40.6 % (39.0-53.0); HGB 12.5 gm/dL (13.0-17.5); Hypochromasia Moderate; Lymphocytes # (A) 2.3 k/uL (1.0-4.8); Lymphocytes % (A) 21 %; MCH 34.3 pg (25.0-35.0); MCHC 30.8 g/dL (31.0-37.0); Macrocytosis Marked; Mean Platelet Volume 9.3; Monocytes # (A) 0.4 k/uL (0-1.0); Monocytes % (A) 3 %; Neutrophils # (A) 8.2 k/uL (1.3-7.7); Neutrophils % (A) 74 %; Platelet Count 184 k/uL (150-450); RBC 3.63 m/uL (4.30-5.90); RDW 14.7 % (11.5-15.5)
[2021-11-10 19:25] LABS: MCV 111.6 fL (80.0-100.0)
[2021-11-10] MEDS ORDERED: SODIUM BICARB 8.4% 50 ML SYR (1 MEQ/ML) IV ONE (20:00)
[2021-11-10] MEDS ORDERED: DEXTROSE 50% SYRINGE 50 ML IVP ONE (20:00)
[2021-11-10] MEDS ORDERED: INSULIN REGULAR 100 UNIT/ML VIAL (IV) IV ONE (20:00)
[2021-11-10] MEDS ORDERED: CALCIUM GLUCONATE 1 GM in SODIUM CHLORIDE 0.9% 100 ML IVPB ONE (20:00)
[2021-11-10] MEDS ORDERED: ALBUTEROL NEB (CONC) 2.5 MG/0.5 ML INHALATION ONE (20:00)
[2021-11-10] MEDS ORDERED: ARTIFICIAL TEARS-HYPROMELLOSE DROPS 15 ML BTL BOTH EYES PRN (20:08)
[2021-11-10] MEDS ORDERED: DRY MOUTH SPRAY 44.3 SPRAY/44.3 ML SPRAY MUCOUS MEM PRN (20:08)
[2021-11-10] MEDS ORDERED: MORPHINE SULFATE 4 MG/ML SYRINGE IV PRN (20:08)
[2021-11-10] MEDS ORDERED: NALOXONE 0.4 MG/ML 1 ML VIAL IV PRN (20:14)
[2021-11-11] MEDS: ONDANSETRON 4 MG/2 ML VIAL IVP PRN ×2 (01:43→14:37)
[2021-11-11 13:18] LABS: Basophils % (A) 0 %; Eosinophils % (A) 0 %; HCT 33.9 % (39.0-53.0); HGB 10.8 gm/dL (13.0-17.5); Lymphocytes # (A) 0.7 k/uL (1.0-4.8); Lymphocytes % (A) 4 %; MCH 34.5 pg (25.0-35.0); MCHC 31.9 g/dL (31.0-37.0); MCV 107.9 fL (80.0-100.0); Macrocytosis Marked; Mean Platelet Volume 8.8; Monocytes # (A) 0.5 k/uL (0-1.0); Monocytes % (A) 3 %; Neutrophils # (A) 14.7 k/uL (1.3-7.7); Neutrophils % (A) 91 %; Platelet Count 164 k/uL (150-450); RBC 3.14 m/uL (4.30-5.90); WBC 16.1 k/uL (3.8-10.6)
[2021-11-11 13:39] LABS: Potassium 6.7 mmol/L (3.5-5.1)
[2021-11-11 14:07] LABS: Anisocytosis (M) Present
[2021-11-11] MEDS ORDERED: DEXTROSE 50% SYRINGE 50 ML IVP STA (14:12)
[2021-11-11] MEDS ORDERED: INSULIN REGULAR 100 UNIT/ML VIAL (IV) IV ONE (14:13)
[2021-11-11] MEDS ORDERED: CALCIUM GLUCONATE 1 GM in SODIUM CHLORIDE 0.9% 100 ML IVPB ONE (14:13)
[2021-11-11 14:22] VITALS: BMI 14.1
[2021-11-11] MEDS ORDERED: MIDODRINE 5 MG TAB PO PRN (14:54)
[2021-11-11] MEDS ORDERED: DIPHENOX-ATROP 2.5-0.025 MG 1 EACH TAB PO PRN (14:54)
[2021-11-11] MEDS ORDERED: FAMOTIDINE 20 MG TAB PO PRN (14:54)
[2021-11-11] MEDS: METOPROLOL TARTRATE 12.5 MG TAB PO SCH (16:35)
[2021-11-11] MEDS: CALCIUM ACETATE 667 MG TAB PO SCH (16:35)
[2021-11-11] MEDS: MEGESTROL 400 MG/10 ML CUP PO SCH ×2 (16:36→20:44)
--- NOTE | 2021-11-11 17:24 | P.HPIM ---
History of Present Illness H&P Date: 11/11/21 Chief Complaint: Altered mental status This is a 76-year-old gentleman with known peritoneal dialysis, hypertension,abdominal aortic aneurysm status post stent placement, bilateral renal artery stents, moderate mitral regurgitation, former nicotine dependence, frequent hospitalizations. He lives alone as his is in hospice at [facility]. Poor diet intake. Blood into the ER by his neighbor for generalized weakness, diarrhea, not eating. Patient was discharged approximately one week ago for similar presentation. On admission patient was unresponsive, hypokalemi c, received IV fluids. Patient became more alert stating he did not want any aggressive care, just comfort. Brother was contacted via phone per ER doctor and patient was made comfort care per patient and brother. Comfort care initiated. This morning hospice consulted, patient and family declining. Comfort care discontinued, the patient wishes to remain a no code, no CPR, no intubation. Nephrology consulted, peritoneal dialysis and hyperkalemic cocktail ordered. Review of Systems ROS Statement: Those systems with pertinent positive or pertinent negative responses have been documented in the HPI. ROS Other: All systems not noted in ROS Statement are negative. Past Medical History Past Medical History: Dialysis, GERD/Reflux, Hearing Disorder / Deafness, Hyperlipidemia, Hypertension, Renal Disease Additional Past Medical History / Comment(s): AAA. Peritoneal dialysis port daily. Pancreatitis 12/2020. Colon polyps. History of Any Multi-Drug Resistant Organisms: None Reported Past Surgical History: Appendectomy, Cholecystectomy, Hernia Repair, Orthopedic Surgery Additional Past Surgical History / Comment(s): AAA stent placement, bilat inguinal hernia repair, peritoneal dialysis placement. ORIF Rt hand w/ pins. EGD, Colonoscopy. Past Anesthesia/Blood Transfusion Reactions: No Reported Reaction Past Psychological History: Depression Smoking Status: Former smoker Past Alcohol Use History: None Reported Past Drug Use History: None Reported - Past Family History Sister(s) Family Medical History: Cancer, Myocardial Infarction ([place]) Additional Family Medical History / Comment(s): esophageal ca Brother(s) Family Medical History: Pneumonia Medications and Allergies Home Medications Medication Instructions Recorded Confirmed Type Atorvastatin [Lipitor] 80 mg PO HS 01/12/19 11/10/21 History Calcium Acetate [PhosLo] 667 mg PO AC-TID 08/28/20 11/10/21 History Famotidine [Pepcid] 20 mg PO HS PRN 04/18/21 11/10/21 History dronabinoL [Marinol] 10 mg PO BID 07/19/21 11/10/21 History Potassium Chloride ER [K-Dur 20] 20 meq PO DAILY #30 tablet 09/18/21 11/10/21 Rx Citalopram Hydrobromide [CeleXA] 20 mg PO DAILY 10/19/21 11/10/21 History Diphenox-Atrop 2.5-0.025 mg 1 tab PO TID PRN 10/19/21 11/10/21 History [Lomotil] Midodrine HCl [ProAmatine] 10 mg PO TID PRN 10/19/21 11/10/21 History Aspirin EC [Ecotrin Low Dose] 81 mg PO HS 11/03/21 11/10/21 History Megestrol [Megace] 80 mg PO TID 11/03/21 11/10/21 History Metoprolol Tartrate [Lopressor] 12.5 mg PO DAILY 11/03/21 11/10/21 History Allergies Allergy/AdvReac Type Severity Reaction Status Date / Time heparin Allergy Severe HIT/LARRY-see Verified 11/10/21 20:34 comment cyclobenzaprine Allergy Rash/Hives Verified 11/10/21 20:34 [From Flexeril] Physical Exam Vitals: Vital Signs Temp Pulse Pulse Resp BP BP Pulse Ox 11/11/21 14:00 98.0 F 92 16 116/67 93 L 11/10/21 23:00 98.2 F 72 15 116/45 92 L 11/10/21 22:05 66 13 102/60 97 11/10/21 20:00 68 12 97/58 99 11/10/21 19:55 62 20 130/64 99 11/10/21 19:06 99 18 118/91 99 11/10/21 18:30 97.4 F L 98 6 L 70/41 92 L Intake and Output 11/11/21 11/11/21 11/11/21 06:59 14:59 22:59 Other: Voiding Method CAPD # Voids 0 Weight 43.318 kg - Exam General: Cachectic ,Sitting up in bed, alert and oriented 3, hard of hearing. Neck: The neck is supple,no JVD. Cardiovascular: S1S2 is normal,regular rate and rhythm. No murmur, rub or gallop is appreciated. Respiratory: Lungs are clear to auscultation bilaterally, respirations are non-labored, breath sounds are equal. Gastrointestinal: Soft, non-distended, non-tender abdomen without masses or organomegaly noted. no rebound or guarding present. Positive Bowel sounds. Musculoskeletal: Normal ROM, no tenderness, no pedal edema, no calf tenderness or swelling. Neurological: CN II-XII intact, strength and sensation grossly intact. Skin: Skin is warm and dry, no rash Results CBC & Chem 7: 11/11/21 13:05 11/11/21 13:05 Labs: Abnormal Lab Results - Last 24 Hours (Table) 11/10/21 11/10/21 11/10/21 Range/Units 18:47 18:47 18:47 WBC 11.0 H (3.8-10.6) k/uL RBC 3.63 L (4.30-5.90) m/uL Hgb 12.5 L (13.0-17.5) gm/dL Hct (39.0-53.0) % MCV 111.6 H D (80.0-100.0) fL MCHC 30.8 L (31.0-37.0) g/dL Neutrophils # 8.2 H (1.3-7.7) k/uL Lymphocytes # (1.0-4.8) k/uL Macrocytosis Marked A PT 12.3 H (9.0-12.0) sec INR 1.2 H (<1.2) Sodium 131 L (137-145) mmol/L Potassium 7.6 H* (3.5-5.1) mmol/L Chloride 96 L (98-107) mmol/L Carbon Dioxide 12 L (22-30) mmol/L BUN 44 H (9-20) mg/dL Creatinine 8.70 H* (0.66-1.25) mg/dL Glucose 103 H (74-99) mg/dL AST 145 H (17-59) U/L ALT 134 H (4-49) U/L Alkaline Phosphatase 157 H (38-126) U/L Total Protein 6.2 L (6.3-8.2) g/dL Albumin 3.4 L (3.5-5.0) g/dL 11/11/21 11/11/21 Range/Units 13:05 13:05 WBC 16.1 H (3.8-10.6) k/uL RBC 3.14 L (4.30-5.90) m/uL Hgb 10.8 L (13.0-17.5) gm/dL Hct 33.9 L (39.0-53.0) % MCV 107.9 H (80.0-100.0) fL MCHC (31.0-37.0) g/dL Neutrophils # 14.7 H (1.3-7.7) k/uL Lymphocytes # 0.7 L (1.0-4.8) k/uL Macrocytosis Marked A PT (9.0-12.0) sec INR (<1.2) Sodium 133 L (137-145) mmol/L Potassium 6.7 H* (3.5-5.1) mmol/L Chloride (98-107) mmol/L Carbon Dioxide 21 L (22-30) mmol/L BUN (9-20) mg/dL Creatinine (0.66-1.25) mg/dL Glucose (74-99) mg/dL AST (17-59) U/L ALT (4-49) U/L Alkaline Phosphatase (38-126) U/L Total Protein (6.3-8.2) g/dL Albumin (3.5-5.0) g/dL Thrombosis Risk Factor Assmnt - Choose All That Apply Any of the Below Risk Factors Present?: No Other Risk Factors: Yes Each Risk Factor Represents 3 Points: Age 75 years or older Thrombosis Risk Factor Assessment Total Risk Factor Score: 3 Thrombosis Risk Factor Assessment Level: Moderate Risk Assessment and Plan Assessment: Failure to thrive,hyperkalemic in a patient with end-stage renal disease on peritoneal dialysis. Initially comfort care, patient now requesting supportive care but to maintain no CPR, no code, no intubation. Dehydration, hypovolemia secondary to poor oral intake, continues losing weight, weight decreased to 41.27 kg. 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 Elevated troponin, (prior admission up to 0.077 with echo reporting normal LV function, EF 55-60% and acute coronary syndrome was ruled out previously as per cardiology) Severe protein malnutrition, secondary to Poor oral intake History of shingles Anemia of chronic disease, iron deficient Former nicotine dependence Moderate mitral regurgitation Mild pulmonary hypertension No code, no CPR, no intubation Plan: Continue on current medication regime ,monitoring and symptomatic treatment. Last night patient's family had decided on comfort care. This morning patient more alert, and he and his family declining hospice. Maintain supportive care, nephrology consulted. Peritoneal dialysis/hyperkalemic cocktail as per nephrology. The impression and plan of care has been dictated as directed. : I performed a history and examination of this patient, discussed the same with the dictator. I agree with the dictator's note ,documented as a scribe. Any additional findings or plans will be noted.
[2021-11-11] MEDS: DIALYSIS (PERIT 1.5%) 2,500 ML 37.5 G/2,500 ML BAG INTRAPERIT SCH (18:06)
[2021-11-11] MEDS: ATORVASTATIN 80 MG TAB PO SCH (20:44)
[2021-11-11] MEDS: ASPIRIN 81 MG PO SCH (20:44)
[2021-11-12] MEDS: DIALYSIS (PERIT 1.5%) 2,500 ML 37.5 G/2,500 ML BAG INTRAPERIT SCH ×4 (00:59→18:09)
[2021-11-12] MEDS: CALCIUM ACETATE 667 MG TAB PO SCH ×3 (07:44→16:51)
[2021-11-12] MEDS: METOPROLOL TARTRATE 12.5 MG TAB PO SCH (07:44)
[2021-11-12] MEDS: CITALOPRAM HYDROBROMIDE 20 MG TAB PO SCH (07:44)
[2021-11-12] MEDS: MEGESTROL 400 MG/10 ML CUP PO SCH ×3 (07:44→22:40)
[2021-11-12] MEDS: ONDANSETRON 4 MG/2 ML VIAL IVP PRN (09:32)
[2021-11-12 09:41] LABS: Basophils # (A) 0.02 X 10*3/uL (0.00-0.10); Basophils % (A) 0.1 %; Eosinophils # (A) 0 X 10*3/uL (0.04-0.35); Eosinophils % (A) 0 %; HCT 25.8 % (39.6-50.0); HGB 8.3 g/dL (13.0-17.0); Lymphocytes # (A) 1.14 X 10*3/uL (0.90-5.00); MCH 33.3 pg (27.0-32.0); MCHC 32.2 g/dL (32.0-37.0); MCV 103.6 fL (80.0-97.0); Mean Platelet Volume 11.7 fL (9.5-12.2); Monocytes # (A) 0.98 X 10*3/uL (0.20-1.00); Monocytes % (A) 5.2 %; Neutrophils # (A) 16.56 X 10*3/uL (1.80-7.70); Neutrophils % (A) 87.5 %; Platelet Count 106 X 10*3/uL (140-440); RBC 2.49 X 10*6/uL (4.40-5.60); RDW 15.1 % (11.5-14.5); WBC 18.92 X 10*3/uL (4.50-10.00)
[2021-11-12 11:38] LABS: African American GFR (CKD) 6.9 (60.0-200.0); Anion Gap 13.5 mmol/L (10.00-18.00); BUN/Creat Ratio 6.11 Ratio (12.00-20.00); Blood Urea Nitrogen 48.3 mg/dL (9.0-27.0); Calcium 8.7 mg/dL (8.7-10.3); Carbon Dioxide 20.5 mmol/L (20.0-27.5); Non-African American GFR(CKD) 5.9 (60.0-200.0); Potassium 5.5 mmol/L (3.5-5.5)
[2021-11-12] MEDS ORDERED: DARBEPOETIN ALFA 60 MCG/0.3 ML SYRINGE SQ SCH (15:00)
--- NOTE | 2021-11-12 18:11 | CONS ---
CONSULTATION REASON FOR CONSULT: End-stage renal disease. HISTORY OF PRESENT ILLNESS: Patient is a 76-year-old male with end-stage renal disease, on peritoneal dialysis. He was admitted to the hospital with altered mentation. It appears that patient was significantly unresponsive and hospice was consulted. However, during this time his mentation improved significantly. He is alert, oriented x3, and hospice care has been discontinued now. Patient was hyperkalemic. He received treatment and peritoneal dialysis has been restarted. PAST MEDICAL HISTORY: End-stage renal disease, hyperlipidemia, CKD mineral bone disorder, gastroesophageal reflux disease, history of pancreatitis, history of abdominal aortic aneurysm, colonic polyps. PAST SURGICAL HISTORY: Cholecystectomy, hernia repair, abdominal aortic aneurysm stent placement, ORIF right hand, EGD, colonoscopy. SOCIAL HISTORY: Patient is a former smoker. No history of drug abuse or alcohol abuse. MEDICATIONS: Medications include Lipitor, PhosLo, Pepcid, Marinol, midodrine, aspirin, Megace, Lopressor. ALLERGIES: ALLERGIES INCLUDE HEPARIN, FLEXERIL. PHYSICAL EXAMINATION: Patient is comfortable, awake, not in any acute distress. Blood pressure 105/73, heart rate 73 per minute. He is afebrile. EXAMINATION OF THE HEART: S1 and S2. EXAMINATION OF LUNGS: Decreased breath sounds at the bases. Abdomen is soft, non-tender. Examination of lower extremities shows no significant edema. 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 LABS: Sodium 135, potassium 5.5, BUN of 48.3, creatinine 7.9, hemoglobin 8.3. ASSESSMENT: 1. End-stage renal disease, maintained on peritoneal dialysis, which we will continue. 2. Hyperkalemia associated with renal failure and not having had dialysis, currently improved, status post IV treatment yesterday. 3. Chronic kidney disease mineral bone disorder. 4. Volume depletion, currently improved, status post IV fluids. PLAN: Continue to encourage increased oral intake. Will continue with 1.5% solution q.6 hours. Maintain patient on Aranesp as well for anemia. Thank you for this consultation. Will continue to follow the patient with you during his hospitalization. MMODL / IJN: [id number] /
[2021-11-12] MEDS: ATORVASTATIN 80 MG TAB PO SCH (22:41)
[2021-11-12] MEDS: ASPIRIN 81 MG PO SCH (22:41)
[2021-11-13] MEDS: DIALYSIS (PERIT 1.5%) 2,500 ML 37.5 G/2,500 ML BAG INTRAPERIT SCH ×4 (00:26→17:45)
[2021-11-13] MEDS: CALCIUM ACETATE 667 MG TAB PO SCH ×3 (07:21→17:30)
[2021-11-13] MEDS: CITALOPRAM HYDROBROMIDE 20 MG TAB PO SCH (07:21)
[2021-11-13] MEDS: MEGESTROL 400 MG/10 ML CUP PO SCH ×3 (07:21→21:21)
[2021-11-13] MEDS: METOPROLOL TARTRATE 12.5 MG TAB PO SCH (07:21)
--- NOTE | 2021-11-13 11:26 | P.CONS ---
History of Present Illness - Chief Complaint Medical debility - History of Present Illness I had the opportunity to see patient for inpatient rehab consultation with regard to medical debility. Patient admitted to [facility] November 10 with shortness of breath, unresponsive and mental status change. Seen by speech therapy for memory. PT and OT prescribed. Previous functional history as elicited from patient: 75-year-old right-handed white male who is lives and 2 floor home alone. is at [facility] in hospice. Patient retired. Describes independent with own cooking, laundry, sitdown shower. Occasionally drives. Has a walker and wheelchair if he needs them. PCP Dr. Garza. Denies tobacco or alcohol. Review of Systems Review of systems: ENT: Denies sneezes or discharge. Eyes: Denies discharge or photophobia. Cardiac: Denies chest pain or palpitation. Pulmonary: Mild but improving shortness of breath. Gastrointestinal: Denies nausea, emesis, constipation, diarrhea. Genitourinary: Denies discharge or frequency. Musculoskeletal: Denies muscle or bone aches. Neurologic: Denies motor or sensory change. Endocrine: Denies shakes or sweats. Oncology: Denies cancers. Dermatologic: Denies rash, itching, pruritus. ALLERGY/immunology: Denies sneezes, rashes. Past Medical History Past Medical History: Dialysis, GERD/Reflux, Hearing Disorder / Deafness, Hyperlipidemia, Hypertension, Renal Disease Additional Past Medical History / Comment(s): AAA. Peritoneal dialysis port daily. Pancreatitis 12/2020. Colon polyps. History of Any Multi-Drug Resistant Organisms: None Reported Past Surgical History: Appendectomy, Cholecystectomy, Hernia Repair, Orthopedic Surgery Additional Past Surgical History / Comment(s): AAA stent placement, bilat inguinal hernia repair, peritoneal dialysis placement. ORIF Rt hand w/ pins. EGD, Colonoscopy. Past Anesthesia/Blood Transfusion Reactions: No Reported Reaction Past Psychological History: Depression Smoking Status: Former smoker Past Alcohol Use History: None Reported Past Drug Use History: None Reported - Past Family History Sister(s) Family Medical History: Cancer, Myocardial Infarction ([place]) Additional Family Medical History / Comment(s): esophageal ca Brother(s) Family Medical History: Pneumonia Medications and Allergies Home Medications Medication Instructions Recorded Confirmed Type Atorvastatin [Lipitor] 80 mg PO HS 01/12/19 11/10/21 History Calcium Acetate [PhosLo] 667 mg PO AC-TID 08/28/20 11/10/21 History Famotidine [Pepcid] 20 mg PO HS PRN 04/18/21 11/10/21 History dronabinoL [Marinol] 10 mg PO BID 07/19/21 11/10/21 History Potassium Chloride ER [K-Dur 20] 20 meq PO DAILY #30 tablet 09/18/21 11/10/21 Rx Citalopram Hydrobromide [CeleXA] 20 mg PO DAILY 10/19/21 11/10/21 History Diphenox-Atrop 2.5-0.025 mg 1 tab PO TID PRN 10/19/21 11/10/21 History [Lomotil] Midodrine HCl [ProAmatine] 10 mg PO TID PRN 10/19/21 11/10/21 History Aspirin EC [Ecotrin Low Dose] 81 mg PO HS 11/03/21 11/10/21 History Megestrol [Megace] 80 mg PO TID 11/03/21 11/10/21 History Metoprolol Tartrate [Lopressor] 12.5 mg PO DAILY 11/03/21 11/10/21 History Allergies Allergy/AdvReac Type Severity Reaction Status Date / Time heparin Allergy Severe HIT/LARRY-see Verified 11/10/21 20:34 comment cyclobenzaprine Allergy Rash/Hives Verified 11/10/21 20:34 [From Flexeril] Physical Exam Vitals: Vital Signs Temp Pulse Pulse Resp BP BP Pulse Ox 11/13/21 08:00 96.7 F L 80 19 108/71 94 L 11/13/21 00:33 97.5 F L 84 16 102/65 98 11/13/21 00:26 97.5 F L 84 16 102/65 98 11/12/21 19:18 98.1 F 86 16 107/56 97 11/12/21 14:13 97.9 F 73 18 105/73 92 L Intake and Output 11/12/21 11/13/21 11/13/21 22:59 06:59 14:59 Intake Total 480 Balance 480 Intake: Oral 480 Other: Voiding Method CAPD CAPD # Voids 0 Skin: Atrophic, intact. General: Thin build and comfortable appearance. Head: Normocephalic, atraumatic. Eyes: Symmetric. Pupils equal round. Ears: Symmetric. Hearing within normal limits. Mouth: Clear. Neck: Supple. Carotid without bruit. Cardiac: Regular rate and rhythm. Lungs: Clear anteriorly and posteriorly. Abdomen: Soft active nontender. Extremities: Normal tone. Limbs. Neurological: Mental status: Alert, cooperative, pleasant. Cranial nerves: Symmetric facial tone and trapezius. Motor: Active movement all 4 limbs. Legs at best antigravity. Sensation: Intact throughout. DTRs: Symmetric and equal throughout. Mobility: Requires physical assist for bed mobility. Results CBC & Chem 7: 11/12/21 05:11 11/12/21 05:11 Labs: Abnormal Lab Results - Last 24 Hours (Table) 11/12/21 Range/Units 05:11 BUN 48.3 H (9.0-27.0) mg/dL Creatinine 7.9 H* (0.6-1.5) mg/dL Est GFR (CKD-EPI)AfAm 6.9 L (60.0-200.0) Est GFR (CKD-EPI)NonAf 5.9 L (60.0-200.0) BUN/Creatinine Ratio 6.11 L (12.00-20.00) Ratio Glucose 137 H (70-110) mg/dL Assessment and Plan (1) ESRD (end stage renal disease) Current Visit: Yes Status: Acute Code(s): N18.6 - END STAGE RENAL DISEASE SNOMED Code(s): 36361176 (2) End of life care Current Visit: Yes Status: Acute Code(s): Z51.5 - ENCOUNTER FOR PALLIATIVE CARE SNOMED Code(s): 504839125 (3) Anemia of renal disease Current Visit: No Status: Acute Priority: High Code(s): N18.9 - CHRONIC KIDNEY DISEASE, UNSPECIFIED; D63.1 - ANEMIA IN CHRONIC KIDNEY DISEASE SNOMED Code(s): 937727536 (4) COVID-19 Current Visit: No Status: Acute Code(s): U07.1 - COVID-19 SNOMED Code(s): 950533174 Plan: Impression: 1. Respiratory failure with mental status change. Comments and plan: At this time PT and OT are prescribed overweight therapies. Patient's prognosis hampered as he reports he has elderly friends who can look in on him but he has nobody that he can depend on for assistance at home if needed. Rehab prognosis related to this.
--- NOTE | 2021-11-13 15:36 | P.PN ---
Subjective Progress Note Date: 11/12/21 This is a 76-year-old gentleman with known peritoneal dialysis, hypertension,abdominal aortic aneurysm status post stent placement, bilateral renal artery stents, moderate mitral regurgitation, former nicotine dependence, frequent hospitalizations. He lives alone as his is in hospice at [facility]. Poor diet intake. Blood into the ER by his neighbor for generalized weakness, diarrhea, not eating. Patient was discharged approximately one week ago for similar presentation. On admission patient was unresponsive, hypokalemic, received IV fluids. Patient became more alert stating he did not w ant any aggressive care, just comfort. Brother was contacted via phone per ER doctor and patient was made comfort care per patient and brother. Comfort care initiated. This morning hospice consulted, patient and family declining. Comfort care discontinued, the patient wishes to remain a no code, no CPR, no intubation. Nephrology consulted, peritoneal dialysis and hyperkalemic cocktail ordered. 11/12/2021 Sensorium significantly improved. Maintained on peritoneal dialysis as per nephrology. Hyperkalemia improved, down to 5.5. Denies chest pain, palpitations or shortness of breath. Afebrile. Consuming approximately 50% of diet.Tolerating well, denies nausea vomiting. Patient and family requesting rehab. at discharge. Consult in place for inpatient rehab at [facility]. Objective - Vital Signs Vital signs: Vital Signs Temp 98.2 F 11/12/21 06:57 Pulse 81 11/12/21 07:38 Resp 14 11/12/21 07:38 BP 101/65 11/12/21 06:57 Pulse Ox 97 11/12/21 06:57 Intake & Output 11/11/21 11/12/21 11/12/21 18:59 06:59 18:59 Intake Total 480 Balance 480 Weight 43.318 kg Intake: Oral 480 Other: Voiding Method CAPD CAPD CAPD # Voids 0 0 - Exam - Exam General: Cachectic ,Sitting up in bed, alert and oriented 3, hard of hearing. Neck: The neck is supple,no JVD. Cardiovascular: S1S2 is normal,regular rate and rhythm. No murmur, rub or gallop is appreciated. Respiratory: Lungs are clear to auscultation bilaterally, respirations are non-labored, breath sounds are equal. Gastrointestinal: Soft, non-distended, non-tender abdomen without masses noted. no guarding. Positive Bowel sounds. Musculoskeletal: Normal ROM, no tenderness, no pedal edema, no calf tenderness or swelling. Neurological: CN II-XII intact, strength and sensation grossly intact. Skin: Skin is warm and dry, no rash - Labs CBC & Chem 7: 11/12/21 05:11 11/12/21 05:11 Labs: Abnormal Lab Results - Last 24 Hours (Table) 11/11/21 11/11/21 11/11/21 Range/Units 13:05 13:05 21:20 WBC 16.1 H (3.8-10.6) k/uL RBC 3.14 L (4.30-5.90) m/uL Hgb 10.8 L (13.0-17.5) gm/dL Hct 33.9 L (39.0-53.0) % MCV 107.9 H (80.0-100.0) fL MCH (27.0-32.0) pg RDW (11.5-14.5) % Plt Count (140-440) X 10*3/uL Absolute Nucleated RBC (0.00-0.00) X 10*3/uL Immature Gran # (0.00-0.04) X 10*3/uL Neutrophils # 14.7 H (1.3-7.7) k/uL Lymphocytes # 0.7 L (1.0-4.8) k/uL Eosinophils # (0.04-0.35) X 10*3/uL NRBC/100 WBC Diff (0.0-0.0) /100 WBCS Macrocytosis Marked A Sodium 133 L (137-145) mmol/L Potassium 6.7 H* 5.9 H (3.5-5.1) mmol/L Carbon Dioxide 21 L (22-30) mmol/L 11/12/21 Range/Units 05:11 WBC 18.92 H (3.8-10.6) k/uL RBC 2.49 L (4.30-5.90) m/uL Hgb 8.3 L (13.0-17.5) gm/dL Hct 25.8 L (39.0-53.0) % MCV 103.6 H (80.0-100.0) fL MCH 33.3 H (27.0-32.0) pg RDW 15.1 H (11.5-14.5) % Plt Count 106 L (140-440) X 10*3/uL Absolute Nucleated RBC 0.03 H (0.00-0.00) X 10*3/uL Immature Gran # 0.22 H (0.00-0.04) X 10*3/uL Neutrophils # 16.56 H (1.3-7.7) k/uL Lymphocytes # (1.0-4.8) k/uL Eosinophils # 0 L (0.04-0.35) X 10*3/uL NRBC/100 WBC Diff 0.2 H (0.0-0.0) /100 WBCS Macrocytosis Sodium (137-145) mmol/L Potassium (3.5-5.1) mmol/L Carbon Dioxide (22-30) mmol/L Assessment and Plan Assessment: Failure to thrive,hyperkalemic in a patient with end-stage renal disease on peritoneal dialysis. Initially comfort care, patient now requesting supportive care but to maintain CODE STATUS of no CPR, no code, no intubation. Dehydration, hypovolemia secondary to poor oral intake, continues losing weight, weight decreased to 41.27 kg. 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 Elevated troponin, (prior admission up to 0.077 with echo reporting normal LV function, EF 55-60% and acute coronary syndrome was ruled out previously as per cardiology) Severe protein malnutrition, secondary to Poor oral intake History of shingles Anemia of chronic disease, iron deficient Former nicotine dependence Moderate mitral regurgitation Mild pulmonary hypertension No code, no CPR, no intubation Plan: Continue on current medication regime ,monitoring and symptomatic treatment. Maintain supportive care, nephrology consulted. Peritoneal dialysis/hyperkalemic cocktail as per nephrology. [facility] Inpatient rehab consult in place. Discharge planning in progress. The impression and plan of care has been dictated as directed. : I performed a history and examination of this patient, discussed the same with the dictator. I agree with the dictator's note ,documented as a scribe. Any additional findings or plans will be noted.
--- NOTE | 2021-11-13 15:47 | P.PN ---
Subjective Progress Note Date: 11/13/21 This is a 76-year-old gentleman with known peritoneal dialysis, hypertension,abdominal aortic aneurysm status post stent placement, bilateral renal artery stents, moderate mitral regurgitation, former nicotine dependence, frequent hospitalizations. He lives alone as his is in hospice at [facility]. Poor diet intake. Blood into the ER by his neighbor for generalized weakness, diarrhea, not eating. Patient was discharged approximately one week ago for similar presentation. On admission patient was unresponsive, hypokalemic, received IV fluids. Patient became more alert stating he did not w ant any aggressive care, just comfort. Brother was contacted via phone per ER doctor and patient was made comfort care per patient and brother. Comfort care initiated. This morning hospice consulted, patient and family declining. Comfort care discontinued, the patient wishes to remain a no code, no CPR, no intubation. Nephrology consulted, peritoneal dialysis and hyperkalemic cocktail ordered. 11/12/2021 Sensorium significantly improved. Maintained on peritoneal dialysis as per nephrology. Hyperkalemia improved, down to 5.5. Denies chest pain, palpitations or shortness of breath. Afebrile. Consuming approximately 50% of diet.Tolerating well, denies nausea vomiting. Patient and family requesting rehab. at discharge. Consult in place for inpatient rehab at [facility]. 11/13/2021 [facility] inpatient rehab does not take peritoneal dialysis patients, nor do the subacute rehab's. Continues on peritoneal dialysis as per nephrology. Objective - Vital Signs Vital signs: Vital Signs Temp 96.9 F L 11/13/21 14:00 Pulse 52 L 11/13/21 14:00 Resp 17 11/13/21 14:00 BP 102/69 11/13/21 14:00 Pulse Ox 96 11/13/21 14:00 Intake & Output 11/12/21 11/13/21 11/13/21 18:59 06:59 18:59 Intake Total 960 Balance 960 Weight 43.318 kg Intake: Oral 960 Other: Voiding Method CAPD CAPD # Voids 0 - Exam - Exam General: Cachectic ,Sitting up in bed, alert and oriented 3, hard of hearing. Neck: The neck is supple,no JVD. Cardiovascular: S1S2 is normal,regular rate and rhythm. No murmur, rub or gallop is appreciated. Respiratory: Lungs are clear to auscultation bilaterally, respirations are non-labored, breath sounds are equal. Gastrointestinal: Soft, non-distended, non-tender abdomen without masses noted. no guarding. Positive Bowel sounds. Musculoskeletal: Normal ROM, no tenderness, no pedal edema, no calf tenderness or swelling. Neurological: CN II-XII intact, strength and sensation grossly intact. Skin: Skin is warm and dry, no rash - Labs CBC & Chem 7: 11/12/21 05:11 11/12/21 05:11 Assessment and Plan Assessment: Failure to thrive,hyperkalemic in a patient with end-stage renal disease on peritoneal dialysis. Initially comfort care, patient now requesting supportive care but to maintain CODE STATUS of no CPR, no code, no intubation. Dehydration, hypovolemia secondary to poor oral intake, continues losing weight, weight decreased to 41.27 kg. 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 Elevated troponin, (prior admission up to 0.077 with echo reporting normal LV function, EF 55-60% and acute coronary syndrome was ruled out previously as per cardiology) Severe protein malnutrition, secondary to Poor oral intake History of shingles Anemia of chronic disease, iron deficient Former nicotine dependence Moderate mitral regurgitation Mild pulmonary hypertension No code, no CPR, no intubation Plan: Continue on current medication regime ,monitoring and symptomatic treatment. Patient will need to be converted over to hemodialysis for subacute rehab placement .patient may not even be a candidate for hemodialysis given his significant malnutrition, cachexia, failure to thrive presentation .further recommendations regarding hemodialysis for this patient pending per nephrology.Discharge planning in progress. The impression and plan of care has been dictated as directed. : I performed a history and examination of this patient, discussed the same with the dictator. I agree with the dictator's note ,documented as a scribe. Any additional findings or plans will be noted.
[2021-11-13] MEDS ORDERED: ACETAMINOPHEN TAB 325 MG TAB PO PRN (17:00)
--- NOTE | 2021-11-13 17:24 | PN ---
PROGRESS NOTE Patient is seen for followup for end-stage renal disease. He is currently sitting on the bedside chair. Patient is comfortable, awake, alert, oriented x3, not in any acute distress. Blood pressure this morning 108/71, heart rate 80 per minute, he is afebrile. Examination of the heart S1, S2. Examination of the lungs, bilateral breath sounds are heard. Decreased breath sounds at the bases. Abdomen is soft, nontender. Examination of lower extremities shows no significant edema. LABS: Show hemoglobin 8.3, sodium 135, potassium 5.5 from yesterday. Serum creatinine was 7.9. ASSESSMENT: 1. End-stage renal disease maintained on peritoneal dialysis, tolerating treatment well. 2. Anemia of chronic disease, maintained on Aranesp. 3. Hyperkalemia associated with end-stage renal disease and not having had dialysis, currently improved with regular treatments. 4. Generalized debility, being considered for inpatient rehab and unfortunately patient will need to switch to temporary hemodialysis while he is in the rehab. This is not ideal for him given his overall general condition and borderline blood pressures, however, there appears to be no other option. Hopefully this will be very short-lived and he can resume PD in a couple of weeks. We will need to proceed with vascular surgery consult for placement of PermCath if he is going to rehab. MMODL / IJN: [id number] /
--- NOTE | 2021-11-13 18:25 | P.PN ---
Progress Note - Text Therapy notes reviewed. PT reports minimal assist for bed mobility, transfers, gait 5 ft RW. OT reports supervision upper dress, moderate assist for bathing and maximal assist for lower dress, toilet and transfers. Ongoing peritoneal dialysis. As discussed with Dr Garza and would defer to his anticipated need for Peer to Peer review due to patient's [employer] insurance.
[2021-11-13] MEDS: ASPIRIN 81 MG PO SCH (21:20)
[2021-11-13] MEDS: ATORVASTATIN 80 MG TAB PO SCH (21:20)
[2021-11-14] MEDS: DIALYSIS (PERIT 1.5%) 2,500 ML 37.5 G/2,500 ML BAG INTRAPERIT SCH ×5 (00:26→23:58)
--- NOTE | 2021-11-14 05:40 | P.PN ---
Progress Note - Text I still have some and reconciled questions or concerns with regard to this patient an inpatient rehabilitation. With regard to discharge planning and as patient has no real supports within the house, how will dialysis be accomplished? Peritoneal dialysis is labor-intensive and must make sure rehabilitation unit has staffing adequate for this purpose. Peritoneal dialysis is time intensive and will prevent 3 hour requirement on inpatient rehabilitation. Must receive waiver from insurance with regard to this. Would anticipate patient ability to perform one hour therapy per day or 5 hours therapy per week currently. As patient progress will be limited by limited therapy time, he will require a longer stay. Further, patient will require longer stay as he will need to be closer to independent for return to home as again he has no real support within the home. At this time would anticipate an inpatient rehab need of 3 months and must make sure insurance authorizes this. [place] authorization time periods will not allow patient opportunity to demonstrate benefit to justify further inpatient rehabilitation.
--- NOTE | 2021-11-14 08:16 | P.GSCN ---
History of Present Illness Consult date: 11/14/21 Reason for Consult: Tunneled dialysis catheter placement Requesting physician: Lisette Marie History of present illness: This is 76-year-old male with end-stage renal disease on peritoneal dialysis with a history of hypertension, abdominal aortic aneurysm status post repair with bilateral renal st[place] [address] Emilie Mathews, moderate mitral regurgitation and former nicotine dependence. The patient brought in by his neighbor for generalized weakness diarrhea not eating. Apparently the patient had been admitted a week ago for the same reasons. On admission the patient apparently was unresponsive, hypokalemic and received IV fluid and he became more alert. The patient is going to be discharged to rehab however rehab and subacute rehabs do not do peritoneal dialysis so vascular surgery was consulted to place a tunneled dialysis catheter. He currently denies any abdominal pain, nausea, or vomiting. He denies any shortness of breath or chest pain. Review of Systems Review of systems completed and all pertinent positives and negatives as stated in the HPI. Past Medical History Past Medical History: Dialysis, GERD/Reflux, Hearing Disorder / Deafness, Hyperlipidemia, Hypertension, Renal Disease Additional Past Medical History / Comment(s): AAA. Peritoneal dialysis port daily. Pancreatitis 12/2020. Colon polyps. History of Any Multi-Drug Resistant Organisms: None Reported Past Surgical History: Appendectomy, Cholecystectomy, Hernia Repair, Orthopedic Surgery Additional Past Surgical History / Comment(s): AAA stent placement, bilat inguinal hernia repair, peritoneal dialysis placement. ORIF Rt hand w/ pins. EGD, Colonoscopy. Past Anesthesia/Blood Transfusion Reactions: No Reported Reaction Past Psychological History: Depression Smoking Status: Former smoker Past Alcohol Use History: None Reported Past Drug Use History: None Reported - Past Family History Sister(s) Family Medical History: Cancer, Myocardial Infarction ([place]) Additional Family Medical History / Comment(s): esophageal ca Brother(s) Family Medical History: Pneumonia Medications and Allergies Home Medications Medication Instructions Recorded Confirmed Type Atorvastatin [Lipitor] 80 mg PO HS 01/12/19 11/10/21 History Calcium Acetate [PhosLo] 667 mg PO AC-TID 08/28/20 11/10/21 History Famotidine [Pepcid] 20 mg PO HS PRN 04/18/21 11/10/21 History dronabinoL [Marinol] 10 mg PO BID 07/19/21 11/10/21 History Potassium Chloride ER [K-Dur 20] 20 meq PO DAILY #30 tablet 09/18/21 11/10/21 Rx Citalopram Hydrobromide [CeleXA] 20 mg PO DAILY 10/19/21 11/10/21 History Diphenox-Atrop 2.5-0.025 mg 1 tab PO TID PRN 10/19/21 11/10/21 History [Lomotil] Midodrine HCl [ProAmatine] 10 mg PO TID PRN 10/19/21 11/10/21 History Aspirin EC [Ecotrin Low Dose] 81 mg PO HS 11/03/21 11/10/21 History Megestrol [Megace] 80 mg PO TID 11/03/21 11/10/21 History Metoprolol Tartrate [Lopressor] 12.5 mg PO DAILY 11/03/21 11/10/21 History Allergies Allergy/AdvReac Type Severity Reaction Status Date / Time heparin Allergy Severe HIT/LARRY-see Verified 11/10/21 20:34 comment cyclobenzaprine Allergy Rash/Hives Verified 11/10/21 20:34 [From Flexeril] Surgical - Exam Vital Signs Temp Pulse Resp BP Pulse Ox 97.4 F L 98 6 L 70/41 92 L 11/10/21 18:30 11/10/21 18:30 11/10/21 18:30 11/10/21 18:30 11/10/21 18:30 General appearance: The patient is alert, oriented, appears in no acute distress. HET: Head is normocephalic and atraumatic. Pupils are equal and reactive. Oropharynx is clear without lesions. Neck: Supple without lymphadenopathy. Trachea midline. Heart: S1 S2. Regular rate and rhythm. Lungs: Clear to auscultation. Abdomen: Soft, thin, nontender, nondistended. Extremities: Normal skin color and turgor. Neurological: No focal deficits. Alert and oriented. Results - Labs 11/14/21 05:18 11/14/21 05:18 Assessment and Plan Assessment: 1. End-stage renal disease on peritoneal dialysis with needed for tunnel dialysis placement for subacute rehab Plan: 1. Diet as tolerated 2. Plans were to place a tunneled dialysis catheter today, however Primary medicine team would now like to hold off on placement at this time. 3. Hemodialysis per recommendations from nephrology Thank you for this consultation allowing us take part in the plan of care of your patient during his hospital stay. Vascular surgery will be on standby please call us back should patient require tunneled dialysis catheter placement for hemo-dialysis The impression and plan of care has been dictated as directed. Dr. Mix I performed a history and examination of this patient, discussed the same with the dictator. I agree with the dictator's note ,documented as a scribe. Any additional findings or plans will be noted.
[2021-11-14] MEDS: CALCIUM ACETATE 667 MG TAB PO SCH ×3 (08:30→17:16)
[2021-11-14] MEDS: CITALOPRAM HYDROBROMIDE 20 MG TAB PO SCH (08:30)
[2021-11-14] MEDS: MEGESTROL 400 MG/10 ML CUP PO SCH ×3 (08:30→22:30)
[2021-11-14] MEDS: METOPROLOL TARTRATE 12.5 MG TAB PO SCH (08:31)
[2021-11-14 10:14] LABS: African American GFR (CKD) 9.8 (60.0-200.0); Anion Gap 8.7 mmol/L (10.00-18.00); BUN/Creat Ratio 4.93 Ratio (12.00-20.00); Blood Urea Nitrogen 29.1 mg/dL (9.0-27.0); Calcium 8.3 mg/dL (8.7-10.3); Carbon Dioxide 27.3 mmol/L (20.0-27.5); Non-African American GFR(CKD) 8.5 (60.0-200.0); Potassium 3.9 mmol/L (3.5-5.5)
[2021-11-14 10:31] LABS: Basophils # (A) 0 X 10*3/uL (0.00-0.10); Basophils % (A) 0 %; Eosinophils # (A) 0.08 X 10*3/uL (0.04-0.35); Eosinophils % (A) 1.1 %; HCT 25.8 % (39.6-50.0); HGB 8.2 g/dL (13.0-17.0); Lymphocytes # (A) 1.21 X 10*3/uL (0.90-5.00); Lymphocytes % (A) 16.1 %; MCH 33.2 pg (27.0-32.0); MCHC 31.8 g/dL (32.0-37.0); MCV 104.5 fL (80.0-97.0); Mean Platelet Volume 11.9 fL (9.5-12.2); Monocytes # (A) 0.41 X 10*3/uL (0.20-1.00); Monocytes % (A) 5.5 %; Neutrophils # (A) 5.77 X 10*3/uL (1.80-7.70); Neutrophils % (A) 76.6 %; Platelet Count 100 X 10*3/uL (140-440); RBC 2.47 X 10*6/uL (4.40-5.60); RDW 15.3 % (11.5-14.5); WBC 7.52 X 10*3/uL (4.50-10.00)
--- NOTE | 2021-11-14 17:07 | P.PN ---
Subjective Progress Note Date: 11/14/21 This is a 76-year-old gentleman with known peritoneal dialysis, hypertension,abdominal aortic aneurysm status post stent placement, bilateral renal artery stents, moderate mitral regurgitation, former nicotine dependence, frequent hospitalizations. He lives alone as his is in hospice at [facility]. Poor diet intake. Blood into the ER by his neighbor for generalized weakness, diarrhea, not eating. Patient was discharged approximately one week ago for similar presentation. On admission patient was unresponsive, hypokalemic, received IV fluids. Patient became more alert stating he did not w ant any aggressive care, just comfort. Brother was contacted via phone per ER doctor and patient was made comfort care per patient and brother. Comfort care initiated. This morning hospice consulted, patient and family declining. Comfort care discontinued, the patient wishes to remain a no code, no CPR, no intubation. Nephrology consulted, peritoneal dialysis and hyperkalemic cocktail ordered. 11/12/2021 Sensorium significantly improved. Maintained on peritoneal dialysis as per nephrology. Hyperkalemia improved, down to 5.5. Denies chest pain, palpitations or shortness of breath. Afebrile. Consuming approximately 50% of diet.Tolerating well, denies nausea vomiting. Patient and family requesting rehab. at discharge. Consult in place for inpatient rehab at [facility]. 11/13/2021 [facility] inpatient rehab does not take peritoneal dialysis patients, nor do the subacute rehab's. Continues on peritoneal dialysis as per nephrology. 11/14/2021 placement of tunneled dialysis catheter placed on hold. Recommendations for AFC home with CAPD, discussed with both patient and family, the patient unable to afford at this time. Patient will discuss options again with PCP, Dr. Garza. Significant clinical improvement. Continues on peritoneal dialysis. Objective - Vital Signs Vital signs: Vital Signs Temp 98.5 F 11/14/21 15:18 Pulse 70 11/14/21 15:18 Resp 16 11/14/21 15:18 BP 101/71 11/14/21 15:18 Pulse Ox 94 L 11/14/21 15:18 Intake & Output 11/13/21 11/14/21 11/14/21 18:59 06:59 18:59 Intake Total 1440 1440 Balance 1440 1440 Weight 43.318 kg Intake: Oral 1440 1440 Other: Voiding Method CAPD CAPD CAPD # Voids 0 - Exam - Exam General: Cachectic ,Sitting up in bed, alert and oriented 3, hard of hearing. Neck: The neck is supple,no JVD. oral mucosa moist Cardiovascular: S1S2 is normal,regular rate and rhythm. No murmur, rub or gallop is appreciated. Respiratory: Nonlabored ,Lungs are clear to auscultation bilaterally. Gastrointestinal: Soft, non-distended, non-tender abdomen without masses noted. no guarding. Positive Bowel sounds. Musculoskeletal: Normal ROM, no tenderness, no pedal edema, no calf tenderness or swelling. Neurological: CN II-XII intact, strength and sensation grossly intact. Skin: Skin is warm and dry, no rash - Labs CBC & Chem 7: 11/14/21 05:18 11/14/21 05:18 Labs: Abnormal Lab Results - Last 24 Hours (Table) 11/14/21 11/14/21 Range/Units 05:18 05:18 RBC 2.47 L (4.40-5.60) X 10*6/uL Hgb 8.2 L (13.0-17.0) g/dL Hct 25.8 L (39.6-50.0) % MCV 104.5 H (80.0-97.0) fL MCH 33.2 H (27.0-32.0) pg MCHC 31.8 L (32.0-37.0) g/dL RDW 15.3 H (11.5-14.5) % Plt Count 100 L (140-440) X 10*3/uL Plt Count Comment DECREASED A Absolute Nucleated RBC 0.02 H (0.00-0.00) X 10*3/uL Immature Gran # 0.05 H (0.00-0.04) X 10*3/uL NRBC/100 WBC Diff 0.3 H (0.0-0.0) /100 WBCS Sodium 133 L (135-145) mmol/L Anion Gap 8.70 L (10.00-18.00) mmol/L BUN 29.1 H (9.0-27.0) mg/dL Creatinine 5.9 H (0.6-1.5) mg/dL Est GFR (CKD-EPI)AfAm 9.8 L (60.0-200.0) Est GFR (CKD-EPI)NonAf 8.5 L (60.0-200.0) BUN/Creatinine Ratio 4.93 L (12.00-20.00) Ratio Calcium 8.3 L (8.7-10.3) mg/dL Assessment and Plan Assessment: Failure to thrive,hyperkalemic in a patient with end-stage renal disease on peritoneal dialysis. Initially comfort care, patient now requesting supportive c are but to maintain CODE STATUS of no CPR, no code, no intubation. Dehydration, hypovolemia secondary to poor oral intake, continues losing weight, weight decreased to 41.27 kg. 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 Elevated troponin, (prior admission up to 0.077 with echo reporting normal LV function, EF 55-60% and acute coronary syndrome was ruled out previously as per cardiology) Severe protein malnutrition, secondary to Poor oral intake History of shingles Anemia of chronic disease, iron deficient Former nicotine dependence Moderate mitral regurgitation Mild pulmonary hypertension No code, no CPR, no intubation Plan: Continue on current medication regime ,monitoring and symptomatic treatment. Placement of dialysis catheter per vascular surgery placed on hold as mentioned above. Further discussion with PCP pending regarding options .Discharge planning in progress for this weekend. Home care ordered. The impression and plan of care has been dictated as directed. : I performed a history and examination of this patient, discussed the same with the dictator. I agree with the dictator's note ,documented as a scribe. Any additional findings or plans will be noted.
--- NOTE | 2021-11-14 17:10 | PN ---
PROGRESS NOTE Patient is seen for followup for end-stage renal disease. The patient will unfortunately need to switch to temporary hemodialysis while he goes to rehab. Vascular surgery has been consulted for placement of PermCath. PHYSICAL EXAMINATION: On examination today, blood pressure is 96/56, heart rate 61 per minute. Patient is afebrile. Examination of the heart S1, S2. Examination of the lungs, bilateral breath sounds are heard. Abdomen is soft, nontender. Examination of lower extremities shows no evidence of edema. HOME BUILDER exam grossly intact. LAB: Show sodium 133, potassium 3.9, serum creatinine 5.9, hemoglobin 8.2 g/dL. ASSESSMENT: 1. End-stage renal disease currently on peritoneal dialysis. Patient will start temporary hemodialysis as he will be going to rehab. 2. Anemia of chronic disease, maintained on Aranesp. 3. Hyperkalemia while patient was not receiving PD, now resolved. 4. CKD mineral bone disorder, maintained on PhosLo. PLAN: Continue with midodrine. Continue with the peritoneal dialysis for now. Once patient has a PermCath we can switch to hemodialysis when he goes to rehab. Hopefully this will be for a very short duration. MMODL / IJN: [id number] /
[2021-11-14] MEDS: ASPIRIN 81 MG PO SCH (20:20)
[2021-11-14] MEDS: ATORVASTATIN 80 MG TAB PO SCH (20:20)
[2021-11-15 00:43] LABS: Hepatitis A Antibody IgM Nonreactive (Nonreactive); Hepatitis B Core IgM Nonreactive (Nonreactive); Hepatitis B Surface AB- Quant 3.5 mIU/mL; Hepatitis B Surface Antibody Nonreactive (Nonreactive); Hepatitis B Surface Antigen Nonreactive (Nonreactive); Hepatitis C IgG Antibody Nonreactive (Nonreactive)
[2021-11-15] MEDS: DIALYSIS (PERIT 1.5%) 2,500 ML 37.5 G/2,500 ML BAG INTRAPERIT SCH ×3 (05:56→18:01)
[2021-11-15] MEDS: MEGESTROL 400 MG/10 ML CUP PO SCH ×3 (08:55→20:57)
[2021-11-15] MEDS: METOPROLOL TARTRATE 12.5 MG TAB PO SCH (08:55)
[2021-11-15] MEDS: CALCIUM ACETATE 667 MG TAB PO SCH (08:55)
[2021-11-15] MEDS: CITALOPRAM HYDROBROMIDE 20 MG TAB PO SCH (08:56)
--- NOTE | 2021-11-15 10:35 | P.PN ---
Subjective Patient is seen in follow-up for end-stage renal disease. He is maintained on peritoneal dialysis. Awake and alert. No active complaints. No problems with peritoneal dialysis exchanges. Vital signs are stable. General: Cachectic appearing. HEENT: Head exam is unremarkable. LUNGS: Breath sounds decreased. HEART: Rate and Rhythm are regular. ABDOMEN: Soft, no distention. PD catheter noted. EXTREMITITES: No edema. Objective - Vital Signs Vital signs: Vital Signs Temp 97.4 F L 11/15/21 08:00 Pulse 105 H 11/15/21 08:00 Resp 19 11/15/21 08:00 BP 102/66 11/15/21 08:00 Pulse Ox 99 11/15/21 08:00 Intake & Output 11/14/21 11/15/21 11/15/21 18:59 06:59 18:59 Intake Total 1440 Balance 1440 Intake: Oral 1440 Other: Voiding Method CAPD CAPD CAPD # Voids 0 0 - Labs CBC & Chem 7: 11/14/21 05:18 11/14/21 05:18 Labs: Abnormal Lab Results - Last 24 Hours (Table) 11/14/21 Range/Units 05:18 RBC 2.47 L (4.40-5.60) X 10*6/uL Hgb 8.2 L (13.0-17.0) g/dL Hct 25.8 L (39.6-50.0) % MCV 104.5 H (80.0-97.0) fL MCH 33.2 H (27.0-32.0) pg MCHC 31.8 L (32.0-37.0) g/dL RDW 15.3 H (11.5-14.5) % Plt Count 100 L (140-440) X 10*3/uL Plt Count Comment DECREASED A Absolute Nucleated RBC 0.02 H (0.00-0.00) X 10*3/uL Immature Gran # 0.05 H (0.00-0.04) X 10*3/uL NRBC/100 WBC Diff 0.3 H (0.0-0.0) /100 WBCS Assessment and Plan Plan: Assessment: 1. End-stage renal disease maintained on peritoneal dialysis. 2. Chronic kidney disease mineral bone disease maintained on PhosLo. Patient's phosphorus has been running low outpatient. 3. Anemia of chronic kidney disease maintained on Aranesp. 4. Hyperkalemia secondary to chronic kidney disease and acidosis. Improved. 5. Metabolic acidosis secondary to chronic kidney disease. Improved. Plan: Maintain current PD exchanges. If patient will be going to subacute rehab, then will place permacath and start hemodialysis. As of this morning, patient will be going home with his brother. Hold PhosLo for now. Check phosphorus level
--- NOTE | 2021-11-15 13:25 | P.PN ---
Subjective Progress Note Date: 11/15/21 Principal diagnosis: End-stage renal disease, acidosis improved Patient medically debilitated requiring inpatient rehab placement as determined by placement requirements, patient will require permacath and hemodialysis, his prealbumin was greater than 19 at 20+ adequate for healing will recommend vascular referral for permacath placement Objective - Vital Signs Vital signs: Vital Signs Temp 97.4 F L 11/15/21 08:00 Pulse 105 H 11/15/21 08:00 Resp 19 11/15/21 08:00 BP 102/66 11/15/21 08:00 Pulse Ox 99 11/15/21 08:00 Intake & Output 11/14/21 11/15/21 11/15/21 18:59 06:59 18:59 Intake Total 1440 Balance 1440 Intake: Oral 1440 Other: Voiding Method CAPD CAPD CAPD # Voids 0 0 - Exam General: [Patient awake, alert and oriented times 3. Patient in no acute distress.] HEENT: [PERRL. EOMI. No pharyngeal erythema or exudate.] Neck: [No adenopathy.] Cardiac: [Heart regular in rate and rhythm. No S3. No S4. No clicks, rubs. No murmur.] Lungs: [Clear to auscultation bilaterally.] Abdomen: [No mass. No organomegaly. Bowel sounds presnt and normoactive in all 4 quadrants.] Extremes: [No edema no cyanosis no claudication normal pulses] : Normal male genitalia Musculoskeletal: [No joint erythema, edema or tenderness.] Skin: [No rash.] Neurologic: [No lateralizing deficits. CN II - XII grossly intact.] Lymphatic: [No adenopathy.] - Labs CBC & Chem 7: 11/14/21 05:18 11/14/21 05:18 Assessment and Plan (1) ESRD (end stage renal disease) Current Visit: Yes Status: Acute Code(s): N18.6 - END STAGE RENAL DISEASE SNOMED Code(s): 19698479 (2) AAA (abdominal aortic aneurysm) Current Visit: No Status: Acute Code(s): I71.4 - ABDOMINAL AORTIC ANEURYSM, WITHOUT RUPTURE SNOMED Code(s): 158694083 (3) Anemia Current Visit: No Status: Acute Code(s): D64.9 - ANEMIA, UNSPECIFIED SNOMED Code(s): 423214644 (4) Anemia of renal disease Current Visit: No Status: Acute Priority: High Code(s): N18.9 - CHRONIC KIDNEY DISEASE, UNSPECIFIED; D63.1 - ANEMIA IN CHRONIC KIDNEY DISEASE SNOMED Code(s): 221345719 (5) Peritoneal dialysis catheter in place Narrative/Plan: Patient's metabolic status improving Requiring dialysis access for rehab placement Consult Dr. Dong vascular surgery for permacath access placement Will require social service reevaluation for inpatient rehab placement following the procedure Current Visit: No Status: Acute Code(s): Z99.2 - DEPENDENCE ON RENAL DIALYSIS SNOMED Code(s): 324500376 Time with Patient: Greater than 30
[2021-11-15] MEDS: ONDANSETRON 4 MG/2 ML VIAL IVP PRN (17:51)
[2021-11-15] MEDS: ASPIRIN 81 MG PO SCH (20:55)
[2021-11-15] MEDS: ATORVASTATIN 80 MG TAB PO SCH (20:55)
[2021-11-16] MEDS: DIALYSIS (PERIT 1.5%) 2,500 ML 37.5 G/2,500 ML BAG INTRAPERIT SCH ×4 (00:59→18:13)
--- NOTE | 2021-11-16 08:02 | P.PN ---
Subjective Progress Note Date: 11/16/21 Principal diagnosis: End-stage renal disease, significant medical debility, anorexia Patient medically debilitated requiring inpatient rehab placement as determined by placement requirements, patient will require permacath and hemodialysis, his prealbumin was greater than 19 at 20+ adequate for healing will recommend vascular referral for permacath placement Objective - Vital Signs Vital signs: Vital Signs Temp 98.3 F 11/16/21 05:31 Pulse 71 11/16/21 05:31 Resp 16 11/16/21 05:31 BP 131/67 11/16/21 05:31 Pulse Ox 93 L 11/16/21 05:31 Intake & Output 11/15/21 11/16/21 11/16/21 18:59 06:59 18:59 Intake Total 300 Output Total 0 Balance 300 Intake: Oral 300 Output: Urine 0 Other: Voiding Method CAPD CAPD # Voids 0 0 - Exam General: [Patient awake, alert and oriented times 3. Patient in no acute distress. Patient is cachectic HEENT: PERRL. EOMI. No pharyngeal erythema or exudate. Neck: No adenopathy. Cardiac: Heart regular in rate and rhythm. No S3. No S4. No clicks, rubs. No murmur. Lungs: Clear to auscultation bilaterally. Abdomen: No mass. No organomegaly. Bowel sounds presnt and normoactive in all 4 quadrants. Peritoneal dialysis access noted Extremes: No edema no cyanosis no claudication normal pulses : Normal male genitalia Musculoskeletal: No joint erythema, edema or tenderness. Skin: No rash. Neurologic: No lateralizing deficits. CN II - XII grossly intact. Lymphatic: [No adenopathy.] - Labs CBC & Chem 7: 11/14/21 05:18 11/14/21 05:18 Labs: Abnormal Lab Results - Last 24 Hours (Table) 11/15/21 Range/Units 11:55 Phosphorus 2.0 L (2.4-5.1) mg/dL Assessment and Plan (1) ESRD (end stage renal disease) Current Visit: Yes Status: Acute Code(s): N18.6 - END STAGE RENAL DISEASE SNOMED Code(s): 73896081 (2) AAA (abdominal aortic aneurysm) Current Visit: No Status: Acute Code(s): I71.4 - ABDOMINAL AORTIC ANEURYSM, WITHOUT RUPTURE SNOMED Code(s): 180641091 (3) Anemia Current Visit: No Status: Acute Code(s): D64.9 - ANEMIA, UNSPECIFIED SNOMED Code(s): 026022855 (4) Anemia of renal disease Current Visit: No Status: Acute Priority: High Code(s): N18.9 - CHRONIC KIDNEY DISEASE, UNSPECIFIED; D63.1 - ANEMIA IN CHRONIC KIDNEY DISEASE SNOMED Code(s): 868411173 (5) Peritoneal dialysis catheter in place Narrative/Plan: Patient's metabolic status improving Requiring dialysis access for rehab placement Consult Dr. Mix vascular surgery for permacath access placement Will require social service reevaluation for inpatient rehab placement following the procedure Current Visit: No Status: Acute Code(s): Z99.2 - DEPENDENCE ON RENAL DIALYSIS SNOMED Code(s): 179374887 Plan: Requiring permacath dialysis access Rehab placement Aggressive dietary management Anticipate hemodialysis access placement Wednesday or Wednesday Time with Patient: Greater than 30
[2021-11-16] MEDS: MEGESTROL 400 MG/10 ML CUP PO SCH ×3 (08:47→20:28)
[2021-11-16] MEDS: METOPROLOL TARTRATE 12.5 MG TAB PO SCH (08:48)
[2021-11-16] MEDS: CITALOPRAM HYDROBROMIDE 20 MG TAB PO SCH (08:48)
[2021-11-16] MEDS ORDERED: Phosphorus Replacement Protoco 1 EACH MISC MISCELLANE PRN (09:20)
--- NOTE | 2021-11-16 09:21 | P.PN ---
Subjective Patient is seen in follow-up for end-stage renal disease. He is maintained on peritoneal dialysis. Awake and alert. No active complaints. No problems with peritoneal dialysis exchanges. Vital signs are stable. General: Cachectic appearing. HEENT: Head exam is unremarkable. LUNGS: Breath sounds decreased. HEART: Rate and Rhythm are regular. ABDOMEN: Soft, no distention. PD catheter noted. EXTREMITITES: No edema. Objective - Vital Signs Vital signs: Vital Signs Temp 97.5 F L 11/16/21 08:21 Pulse 82 11/16/21 08:21 Resp 18 11/16/21 08:21 BP 100/69 11/16/21 08:21 Pulse Ox 95 11/16/21 08:21 Intake & Output 11/15/21 11/16/21 11/16/21 18:59 06:59 18:59 Intake Total 300 Output Total 0 Balance 300 Intake: Oral 300 Output: Urine 0 Other: Voiding Method CAPD CAPD CAPD # Voids 0 0 - Labs CBC & Chem 7: 11/14/21 05:18 11/14/21 05:18 Labs: Abnormal Lab Results - Last 24 Hours (Table) 11/15/21 Range/Units 11:55 Phosphorus 2.0 L (2.4-5.1) mg/dL Assessment and Plan Plan: Assessment: 1. End-stage renal disease maintained on peritoneal dialysis. 2. Chronic kidney disease mineral bone disease maintained on PhosLo. Patient's phosphorus has been running low outpatient -2.0 dated 11/15/2021. 3. Anemia of chronic kidney disease maintained on Aranesp. 4. Hyperkalemia secondary to chronic kidney disease and acidosis. Improved. 5. Metabolic acidosis secondary to chronic kidney disease. Improved. Plan: Maintain current PD exchanges. Hold PhosLo; I will give him a dose of K-Phos today. Case discussed with primary attending at the patient. He will be going to subacute rehab. Consult vascular surgery for permacath placement. Plan for hemodialysis treat ment tomorrow. Hold PD exchanges starting tonight.
[2021-11-16] MEDS ORDERED: POTASSIUM PHOSPHATE 10 MMOL in SODIUM CHLORIDE 0.9% 250 ML IV ONE (10:00)
[2021-11-16 10:38] LABS: African American GFR (CKD) 11.5 (60.0-200.0); Anion Gap 9.6 mmol/L (10.00-18.00); BUN/Creat Ratio 4.5 Ratio (12.00-20.00); Blood Urea Nitrogen 23.3 mg/dL (9.0-27.0); Calcium 7.8 mg/dL (8.7-10.3); Carbon Dioxide 28.5 mmol/L (20.0-27.5); Magnesium 1.3 mg/dL (1.5-2.4); Non-African American GFR(CKD) 9.9 (60.0-200.0); Potassium 3.3 mmol/L (3.5-5.5)
--- NOTE | 2021-11-16 12:44 | P.PN ---
Subjective Progress Note Date: 11/16/21 Principal diagnosis: #1: Chronic kidney disease stage V. #2: Need for tunneled hemodialysis catheter for dialysis during planned rehab stay. Patient is known to us. He had been scheduled for placement of a tunneled dialysis catheter late last week over this was postponed. The patient is now ready for his tunneled dialysis catheter. We will schedule this to be performed either tomorrow (Wednesday) or Wednesday. Objective - Vital Signs Vital signs: Vital Signs Temp 97.5 F L 11/16/21 08:21 Pulse 82 11/16/21 08:21 Resp 18 11/16/21 08:21 BP 100/69 11/16/21 08:21 Pulse Ox 95 11/16/21 08:21 Intake & Output 11/15/21 11/16/21 11/16/21 18:59 06:59 18:59 Intake Total 300 Output Total 0 Balance 300 Intake: Oral 300 Output: Urine 0 Other: Voiding Method CAPD CAPD CAPD # Voids 0 0 - Labs CBC & Chem 7: 11/14/21 05:18 11/16/21 05:18 Labs: Abnormal Lab Results - Last 24 Hours (Table) 11/15/21 11/16/21 Range/Units 11:55 05:18 Sodium 132 L (135-145) mmol/L Potassium 3.3 L (3.5-5.5) mmol/L Chloride 94 L (96-109) mmol/L Carbon Dioxide 28.5 H (20.0-27.5) mmol/L Anion Gap 9.60 L (10.00-18.00) mmol/L Creatinine 5.2 H (0.6-1.5) mg/dL Est GFR (CKD-EPI)AfAm 11.5 L (60.0-200.0) Est GFR (CKD-EPI)NonAf 9.9 L (60.0-200.0) BUN/Creatinine Ratio 4.50 L (12.00-20.00) Ratio Calcium 7.8 L (8.7-10.3) mg/dL Phosphorus 2.0 L (2.4-5.1) mg/dL Magnesium 1.3 L (1.5-2.4) mg/dL
[2021-11-16] MEDS: ATORVASTATIN 80 MG TAB PO SCH (20:28)
[2021-11-16] MEDS: ASPIRIN 81 MG PO SCH (20:28)
[2021-11-17] MEDS: DIALYSIS (PERIT 1.5%) 2,500 ML 37.5 G/2,500 ML BAG INTRAPERIT SCH ×3 (00:45→15:50)
[2021-11-17] MEDS: METOPROLOL TARTRATE 12.5 MG TAB PO SCH (08:15)
[2021-11-17] MEDS: CITALOPRAM HYDROBROMIDE 20 MG TAB PO SCH (08:15)
[2021-11-17] MEDS: MEGESTROL 400 MG/10 ML CUP PO SCH ×3 (08:16→21:30)
--- NOTE | 2021-11-17 09:18 | P.PN ---
Subjective Patient is seen in follow-up for end-stage renal disease. He is maintained on peritoneal dialysis. Awake and alert. No active complaints. No problems with peritoneal dialysis exchanges. Scheduled for PE cath placement today to start hemodialysis as he will be going to subacute rehab. Vital signs are stable. General: Cachectic appearing. HEENT: Head exam is unremarkable. LUNGS: Breath sounds decreased. HEART: Rate and Rhythm are regular. ABDOMEN: Soft, no distention. PD catheter noted. EXTREMITITES: No edema. Objective - Vital Signs Vital signs: Vital Signs Temp 97.5 F L 11/17/21 07:23 Pulse 104 H 11/17/21 07:23 Resp 16 11/17/21 07:23 BP 98/67 11/17/21 07:23 Pulse Ox 95 11/17/21 07:23 Intake & Output 11/16/21 11/17/21 11/17/21 18:59 06:59 18:59 Intake Total 600 Balance 600 Intake: Intake, IV Titration 250 Amount Potassium Phosphate 10 250 mmol In Sodium Chloride 0 .9% 250 ml @ 125 mls/hr IV ONCE ONE Rx#:[id number] Oral 350 Other: Voiding Method CAPD CAPD - Labs CBC & Chem 7: 11/14/21 05:18 11/16/21 05:18 Labs: Abnormal Lab Results - Last 24 Hours (Table) 11/16/21 Range/Units 05:18 Sodium 132 L (135-145) mmol/L Potassium 3.3 L (3.5-5.5) mmol/L Chloride 94 L (96-109) mmol/L Carbon Dioxide 28.5 H (20.0-27.5) mmol/L Anion Gap 9.60 L (10.00-18.00) mmol/L Creatinine 5.2 H (0.6-1.5) mg/dL Est GFR (CKD-EPI)AfAm 11.5 L (60.0-200.0) Est GFR (CKD-EPI)NonAf 9.9 L (60.0-200.0) BUN/Creatinine Ratio 4.50 L (12.00-20.00) Ratio Calcium 7.8 L (8.7-10.3) mg/dL Magnesium 1.3 L (1.5-2.4) mg/dL Assessment and Plan Plan: Assessment: 1. End-stage renal disease maintained on peritoneal dialysis. 2. Chronic kidney disease mineral bone disease maintained on PhosLo. Patient's phosphorus has been running low outpatient -2.0 dated 11/15/2021. 3. Anemia of chronic kidney disease maintained on Aranesp. 4. Hyperkalemia secondary to chronic kidney disease and acidosis. Improved. Now hypokalemic. 5. Metabolic acidosis secondary to chronic kidney disease. Improved. Plan: Hold PD exchanges. Hold PhosLo; status post K-Phos given 11/16/2021. Plan for first treatment of hemodialysis today. P-cath placement pending. Plan for subacute rehab upon discharge. Follow-up morning labs.
[2021-11-17 09:39] LABS: African American GFR (CKD) 13 (>60 ml/min/1.73 sqM); Anion Gap 4 mmol/L; Blood Urea Nitrogen 26 mg/dL (9-20); Calcium 7.4 mg/dL (8.4-10.2); Carbon Dioxide 31 mmol/L (22-30); Chloride 92 mmol/L (98-107); Glucose 73 mg/dL (74-99); Magnesium 1.2 mg/dL (1.6-2.3); Non-African American GFR(CKD) 12 (>60 ml/min/1.73 sqM); Sodium 127 mmol/L (137-145)
--- NOTE | 2021-11-17 11:31 | P.GSCN ---
History of Present Illness History of present illness: 76-year-old gentleman known to me from the past patient has history of end-stage renal disease on peritoneal dialysis. Patient is going to retirement I'll was consulted for placement of a dialysis catheter today patient came with hyperkalemia and was has been admitted his peritoneal dialysis is working well no problem on On examination patient was in his room neck supple trachea central Chest is clear auscultation few crackles the lung bases Abdomen soft patient has a peritoneal dialysis no peritoneal sign Both femorals are palpable bilateral plan is placement of dialysis catheter risk and complication discussed thank you Past Medical History Past Medical History: Dialysis, GERD/Reflux, Hearing Disorder / Deafness, Hyperlipidemia, Hypertension, Renal Disease Additional Past Medical History / Comment(s): AAA. Peritoneal dialysis port daily. Pancreatitis 12/2020. Colon polyps. History of Any Multi-Drug Resistant Organisms: None Reported Past Surgical History: Appendectomy, Cholecystectomy, Hernia Repair, Orthopedic Surgery Additional Past Surgical History / Comment(s): AAA stent placement, bilat inguinal hernia repair, peritoneal dialysis placement. ORIF Rt hand w/ pins. EGD, Colonoscopy. Past Anesthesia/Blood Transfusion Reactions: No Reported Reaction Past Psychological History: Depression Smoking Status: Former smoker Past Alcohol Use History: None Reported Past Drug Use History: None Reported - Past Family History Sister(s) Family Medical History: Cancer, Myocardial Infarction ([place]) Additional Family Medical History / Comment(s): esophageal ca Brother(s) Family Medical History: Pneumonia Medications and Allergies Home Medications Medication Instructions Recorded Confirmed Type Atorvastatin [Lipitor] 80 mg PO HS 01/12/19 11/10/21 History Calcium Acetate [PhosLo] 667 mg PO AC-TID 08/28/20 11/10/21 History Famotidine [Pepcid] 20 mg PO HS PRN 04/18/21 11/10/21 History dronabinoL [Marinol] 10 mg PO BID 07/19/21 11/10/21 History Potassium Chloride ER [K-Dur 20] 20 meq PO DAILY #30 tablet 09/18/21 11/10/21 Rx Citalopram Hydrobromide [CeleXA] 20 mg PO DAILY 10/19/21 11/10/21 History Diphenox-Atrop 2.5-0.025 mg 1 tab PO TID PRN 10/19/21 11/10/21 History [Lomotil] Midodrine HCl [ProAmatine] 10 mg PO TID PRN 10/19/21 11/10/21 History Aspirin EC [Ecotrin Low Dose] 81 mg PO HS 11/03/21 11/10/21 History Megestrol [Megace] 80 mg PO TID 11/03/21 11/10/21 History Metoprolol Tartrate [Lopressor] 12.5 mg PO DAILY 11/03/21 11/10/21 History Allergies Allergy/AdvReac Type Severity Reaction Status Date / Time heparin Allergy Severe HIT/LARRY-see Verified 11/10/21 20:34 comment cyclobenzaprine Allergy Rash/Hives Verified 11/10/21 20:34 [From Flexeril] Surgical - Exam Vital Signs Temp Pulse Resp BP Pulse Ox 97.4 F L 98 6 L 70/41 92 L 11/10/21 18:30 11/10/21 18:30 11/10/21 18:30 11/10/21 18:30 11/10/21 18:30 Results - Labs 11/14/21 05:18 11/17/21 02:59 Abnormal Lab Results - Last 24 Hours (Table) 11/17/21 Range/Units 02:59 Sodium 127 L (137-145) mmol/L Potassium 3.0 L (3.5-5.1) mmol/L Chloride 92 L (98-107) mmol/L Carbon Dioxide 31 H (22-30) mmol/L BUN 26 H (9-20) mg/dL Creatinine 4.57 H (0.66-1.25) mg/dL Glucose 73 L (74-99) mg/dL Calcium 7.4 L (8.4-10.2) mg/dL Magnesium 1.2 L (1.6-2.3) mg/dL Diabetes panel 11/17/21 Range/Units 02:59 Sodium 127 L (137-145) mmol/L Potassium 3.0 L (3.5-5.1) mmol/L Chloride 92 L (98-107) mmol/L Carbon Dioxide 31 H (22-30) mmol/L BUN 26 H (9-20) mg/dL Creatinine 4.57 H (0.66-1.25) mg/dL Glucose 73 L (74-99) mg/dL Calcium 7.4 L (8.4-10.2) mg/dL Calcium panel 11/17/21 11/17/21 Range/Units 02:59 02:59 Calcium 7.4 L (8.4-10.2) mg/dL Phosphorus 2.5 (2.4-5.1) mg/dL Pituitary panel 11/17/21 Range/Units 02:59 Sodium 127 L (137-145) mmol/L Potassium 3.0 L (3.5-5.1) mmol/L Chloride 92 L (98-107) mmol/L Carbon Dioxide 31 H (22-30) mmol/L BUN 26 H (9-20) mg/dL Creatinine 4.57 H (0.66-1.25) mg/dL Glucose 73 L (74-99) mg/dL Calcium 7.4 L (8.4-10.2) mg/dL Adrenal panel 11/17/21 Range/Units 02:59 Sodium 127 L (137-145) mmol/L Potassium 3.0 L (3.5-5.1) mmol/L Chloride 92 L (98-107) mmol/L Carbon Dioxide 31 H (22-30) mmol/L BUN 26 H (9-20) mg/dL Creatinine 4.57 H (0.66-1.25) mg/dL Glucose 73 L (74-99) mg/dL Calcium 7.4 L (8.4-10.2) mg/dL
[2021-11-17] MEDS ORDERED: MIDAZOLAM 2 MG/2 ML VIAL IVP ONE (12:11)
[2021-11-17] MEDS ORDERED: SODIUM CHLORIDE 0.9% 500 ML 500 ML IV ONE (12:11)
[2021-11-17] MEDS ORDERED: SODIUM CITRATE 250 ML IV ONE (12:15)
[2021-11-17] MEDS ORDERED: LIDOCAINE 1% INJ 10MG/ML (20 ML MDV) SQ ONE (12:18)
--- NOTE | 2021-11-17 12:47 | P.PN ---
Subjective This is a 76-year-old gentleman with known peritoneal dialysis, hypertension,abdominal aortic aneurysm status post stent placement, bilateral renal artery stents, moderate mitral regurgitation, former nicotine dependence, frequent hospitalizations. He lives alone as his is in hospice at [facility]. Poor diet intake. Blood into the ER by his neighbor for generalized weakness, diarrhea, not eating. Patient was discharged approximately one week ago for similar presentation. On admission patient was unresponsive, hypokalemic, received IV fluids. Patient became more alert stating he did not want any aggressive care, just comfort. Brother was contacted via phone per ER doctor and patient was made comfort care per patient and brother. Comfort care initiated. This morning hospice consulted, patient and family declining. Comfort care discontinued, the patient wishes to remain a no code, no CPR, no intubation. Nephrology consulted, peritoneal dialysis and hyperkalemic cocktail ordered. 11/12/2021 Sensorium significantly improved. Maintained on peritoneal dialysis as per nephrology. Hyperkalemia improved, down to 5.5. Denies chest pain, palpitations or shortness of breath. Afebrile. Consuming approximately 50% of diet.Tolerating well, denies nausea vomiting. Patient and family requesting rehab. at discharge. Consult in place for inpatient rehab at [facility]. 11/13/2021 [facility] inpatient rehab does not take peritoneal dialysis patients, nor do the subacute rehab's. Continues on peritoneal dialysis as per nephrology. 11/14/2021 placement of tunneled dialysis catheter placed on hold. Recommendations for AFC home with CAPD, discussed with both patient and family, the patient unable to afford at this time. Patient will discuss options again with PCP, Dr. Garza. Significant clinical improvement. Continues on peritoneal dialysis. 11/17/21: Yevgeniy is doing well this AM. Due to his overall weight loss and ongoing failure to trhive, he is being transitioned to [facility] dialysis. A catheter is set to be palce today. he will then go for Rehab ath [facility] and be with his . Vitals show he is afebrile, borderline tachy, BP normal. SIO2 95% on 3l/m via NC. Labs today show elecrolyte abnormalities and BUN CR elevated due to his ESARD. Objective - Vital Signs Vital signs: Vital Signs Temp 97.5 F L 11/17/21 07:23 Pulse 104 H 11/17/21 07:23 Resp 16 11/17/21 07:23 BP 98/67 11/17/21 07:23 Pulse Ox 95 11/17/21 07:23 Intake & Output 11/16/21 11/17/21 11/17/21 18:59 06:59 18:59 Intake Total 600 25 Balance 600 25 Intake: IV 25 Intake, IV Titration 250 Amount Potassium Phosphate 10 250 mmol In Sodium Chloride 0 .9% 250 ml @ 125 mls/hr IV ONCE ONE Rx#:[id number] Oral 350 Other: Voiding Method CAPD CAPD - Exam General: Cachectic ,Sitting up in bed, alert and oriented 3, hard of hearing. Neck: The neck is supple,no JVD. oral mucosa moist Cardiovascular: S1S2 is normal,regular rate and rhythm. No murmur, rub or gallop is appreciated. Respiratory: Nonlabored ,Lungs are clear to auscultation bilaterally. Gastrointestinal: Soft, non-distended, non-tender abdomen without masses noted. no guarding. Positive Bowel sounds. Musculoskeletal: Normal ROM, no tenderness, no pedal edema, no calf tenderness or swelling. Neurological: CN II-XII intact, strength and sensation grossly intact. Skin: Skin is warm and dry, no rash - Labs CBC & Chem 7: 11/14/21 05:18 11/17/21 02:59 Labs: Abnormal Lab Results - Last 24 Hours (Table) 11/17/21 Range/Units 02:59 Sodium 127 L (137-145) mmol/L Potassium 3.0 L (3.5-5.1) mmol/L Chloride 92 L (98-107) mmol/L Carbon Dioxide 31 H (22-30) mmol/L BUN 26 H (9-20) mg/dL Creatinine 4.57 H (0.66-1.25) mg/dL Glucose 73 L (74-99) mg/dL Calcium 7.4 L (8.4-10.2) mg/dL Magnesium 1.2 L (1.6-2.3) mg/dL Assessment and Plan (1) Dehydration Current Visit: Yes Status: Acute Code(s): E86.0 - DEHYDRATION SNOMED Code(s): 09016231 (2) Anemia in chronic illness Current Visit: Yes Status: Acute Code(s): D63.8 - ANEMIA IN OTHER CHRONIC DISEASES CLASSIFIED ELSEWHERE SNOMED Code(s): 961323211 (3) ESRD (end stage renal disease) Current Visit: Yes Status: Acute Code(s): N18.6 - END STAGE RENAL DISEASE SNOMED Code(s): 56125558 (4) Aortic dissection Current Visit: No Status: Acute Code(s): I71.00 - DISSECTION OF UNSPECIFIED SITE OF AORTA SNOMED Code(s): 636760408 (5) Hypokalemia Current Visit: No Status: Acute Code(s): E87.6 - HYPOKALEMIA SNOMED Code(s): 53018744 (6) Hyponatremia Current Visit: No Status: Acute Code(s): E87.1 - HYPO-OSMOLALITY AND HYPONATREMIA SNOMED Code(s): 54904388 (7) Lactic acid acidosis Current Visit: No Status: Acute Code(s): E87.2 - ACIDOSIS SNOMED Code(s): 31033708 (8) Peritoneal dialysis catheter in place Current Visit: No Status: Acute Code(s): Z99.2 - DEPENDENCE ON RENAL DIALYSIS SNOMED Code(s): 063011819 Plan: wait on hemodialysis catheter dialysis after catheter schedule per Nephology placement at [facility] in the next 24 hours
--- NOTE | 2021-11-17 13:02 | IR ---
EXAMINATION TYPE: IR cvc insert central tunneled DATE OF EXAM: 11/17/2021 COMPARISON: NONE HISTORY: Fluoroscopy time. Fluoroscopy was provided to the referring clinician.
[2021-11-17] MEDS ORDERED: POTASSIUM CHLORIDE ER 20 MEQ TAB.ER PO STA (13:30)
--- NOTE | 2021-11-17 13:44 | P.PCN ---
Description of Procedure: Preoperative diagnoses is acute chronic renal failure patient is on PD catheter Posterior same Procedure patient brought to the Pmp Certified Project Manager Michael of the neck and chest were prepped appropriately right used an manner 1% lidocaine for infected neck and chest area. Ultrasound-guided micropuncture introducer right jugular vein and micropuncture guidewire was passed. After that we placed a 4-Somali sheath and the top of the guidewire after that guidewire B we placed a guidewire which was parked in the inferior vena cava. Tendon was created after that we brought to 90s CM straight dialysis catheter and dilator was advanced. The guidewire then the sheath was advanced top the guidewire. Through the sheath we did do dialysis catheter tip of the cath was preventing corrective junction. Flushed with saline patient is ALLERGIC to heparin we gave sodium citrate flush and lock dressing applied patient for the procedure well chest x-ra for catheter placement
--- NOTE | 2021-11-17 14:02 | XR ---
EXAMINATION TYPE: XR chest 1V confirm line [facility] DATE OF EXAM: 11/17/2021 COMPARISON: 11/03/2021 HISTORY: 76-year-old male dialysis catheter placement TECHNIQUE: Single frontal view of the chest is obtained. FINDINGS: Right-sided double-lumen hemodialysis catheter with tips at the mid SVC. Heart normal size. Rightward patient rotation IS a normal aortic contour. Prominent skinfolds projecting over the periphery of th e right lung. Hyperinflation. No jerson consolidation. Hazy density blunting the left costophrenic ang le suggesting a trace pleural effusion. Partially visualized abdominal aortic stent graft. A looped c atheter seems to project at the right mid abdomen partially visualized. Cholecystectomy clips. IMPRESSION: 1. Right-sided double-lumen hemodialysis catheter tips at the mid SVC. 2. COPD. Prominent skin folds projecting in the periphery of the right lung. 3. Trace left pleural effusion.
[2021-11-17] MEDS: MAGNESIUM SULFATE-D5W PMX 1 GM in DEXTROSE/WATER 1 100ML.BAG IVPB SCH ×3 (14:58→18:32)
[2021-11-17] MEDS: MIDODRINE 5 MG TAB PO SCH (16:50)
[2021-11-17] MEDS: ATORVASTATIN 80 MG TAB PO SCH (21:31)
[2021-11-17] MEDS: ASPIRIN 81 MG PO SCH (21:31)
[2021-11-18 07:56] VITALS: RESP 17
[2021-11-18] MEDS: MEGESTROL 400 MG/10 ML CUP PO SCH ×2 (08:33→16:57)
[2021-11-18] MEDS: CITALOPRAM HYDROBROMIDE 20 MG TAB PO SCH (08:33)
[2021-11-18] MEDS: MIDODRINE 5 MG TAB PO SCH ×3 (08:33→16:57)
--- NOTE | 2021-11-18 09:12 | P.PN ---
Subjective Patient is seen in follow-up for end-stage renal disease. He was transitioned to hemodialysis from peritoneal dialysis on November 17 as he will be going to rehab facility. Awake and alert. No active complaints. Vital signs are stable. General: Cachectic appearing. HEENT: Head exam is unremarkable. LUNGS: Breath sounds decreased. HEART: Rate and Rhythm are regular. ABDOMEN: Soft, no distention. PD catheter noted. EXTREMITITES: No edema. Objective - Vital Signs Vital signs: Vital Signs Temp 97.5 F L 11/18/21 07:55 Pulse 112 H 11/18/21 07:55 Resp 17 11/18/21 07:55 BP 115/73 11/18/21 07:55 Pulse Ox 98 11/18/21 07:55 Intake & Output 11/17/21 11/18/21 11/18/21 18:59 06:59 18:59 Intake Total 25 Output Total 0 Balance 25 0 Intake: IV 25 Output: Urine 0 Other: # Voids 0 0 - Labs CBC & Chem 7: 11/14/21 05:18 11/17/21 02:59 Labs: Abnormal Lab Results - Last 24 Hours (Table) 11/17/21 Range/Units 02:59 Sodium 127 L (137-145) mmol/L Potassium 3.0 L (3.5-5.1) mmol/L Chloride 92 L (98-107) mmol/L Carbon Dioxide 31 H (22-30) mmol/L BUN 26 H (9-20) mg/dL Creatinine 4.57 H (0.66-1.25) mg/dL Glucose 73 L (74-99) mg/dL Calcium 7.4 L (8.4-10.2) mg/dL Magnesium 1.2 L (1.6-2.3) mg/dL Assessment and Plan Plan: Assessment: 1. End-stage renal disease maintained on peritoneal dialysis. 2. Chronic kidney disease mineral bone disease maintained on PhosLo. Patient's phosphorus has been running low outpatient -2.0 dated 11/15/2021. PhosLo stopped. Phosphorus 2.5 yesterday. 3. Anemia of chronic kidney disease maintained on Aranesp. 4. Hyperkalemia secondary to chronic kidney disease and acidosis. Improved. Now hypokalemic, replaced. 5. Metabolic acidosis secondary to chronic kidney disease. Improved. 6. Hypomagnesemia from poor intake. Replaced. Plan: PD stopped. Now on hemodialysis. Plan for subacute rehab upon discharge. Follow-up morning labs. Antihypertensives held as blood pressure on the lower side. On midodrine.
[2021-11-18] MEDS ORDERED: MAGNESIUM OXIDE 400 MG TAB PO SCH (09:15)
[2021-11-18 10:04] LABS: African American GFR (CKD) 18.4 (60.0-200.0); Anion Gap 12.4 mmol/L (10.00-18.00); BUN/Creat Ratio 4.43 Ratio (12.00-20.00); Blood Urea Nitrogen 15.5 mg/dL (9.0-27.0); Calcium 7.7 mg/dL (8.7-10.3); Carbon Dioxide 26.6 mmol/L (20.0-27.5); Magnesium 2.2 mg/dL (1.5-2.4); Non-African American GFR(CKD) 15.9 (60.0-200.0); Potassium 3.5 mmol/L (3.5-5.5)
--- NOTE | 2021-11-18 12:15 | P.DS ---
Providers Date of admission: 11/10/21 20:14 Expected date of discharge: 11/18/21 Attending physician: Sebas Garza Consults: 11/11/21 12:56 Consult Physician Stat Consulting Provider: Ana Dsouza Consult Reason/Comments: PD,Hyperkalemia Do you want consulting provider notified?: Yes 11/13/21 10:02 Consult Physician Routine Consulting Provider: Matthias Morales Consult Reason/Comments: IPR Do you want consulting provider notified?: Yes 11/17/21 11:24 Consult Physician Urgent Consulting Provider: Shaq Dong Consult Reason/Comments: tunneled HD cath placement Do you want consulting provider notified?: Already Contacted 11/17/21 11:25 Consult Physician Routine Consulting Provider: Shaq Dong Consult Reason/Comments: dialysis cath placement Do you want consulting provider notified?: Already Contacted Primary care physician: Sebas Garza - Discharge Diagnosis(es) (1) Dehydration Current Visit: Yes Status: Acute (2) Anemia in chronic illness Current Visit: Yes Status: Acute (3) ESRD (end stage renal disease) Current Visit: Yes Status: Acute (4) Aortic dissection Current Visit: No Status: Acute (5) Hypokalemia Current Visit: No Status: Acute (6) Hyponatremia Current Visit: No Status: Acute (7) Lactic acid acidosis Current Visit: No Status: Acute (8) Peritoneal dialysis catheter in place Current Visit: No Status: Resolved Hospital Course: This is a 76-year-old gentleman with known peritoneal dialysis, hypertension,abdominal aortic aneurysm status post stent placement, bilateral renal artery stents, moderate mitral regurgitation, former nicotine dependence, frequent hospitalizations. He lives alone as his is in hospice at [facility]. Poor diet intake. Blood into the ER by his neighbor for generalized weakness, diarrhea, not eating. Patient was discharged approximately one week ago for similar presentation. On admission patient was unresponsive, hypokalemic, received IV fluids. Patient became more alert stating he did not want any aggressive care, just comfort. Brother was contacted via phone per ER doctor and patient was made comfort care per patient and brother. Comfort care initiated. This morning hospice consulted, patient and family declining. Co mfort care discontinued, the patient wishes to remain a no code, no CPR, no intubation. Nephrology consulted, peritoneal dialysis and hyperkalemic cocktail ordered. 11/12/2021 Sensorium significantly improved. Maintained on peritoneal dialysis as per nephrology. Hyperkalemia improved, down to 5.5. Denies chest pain, palpitations or shortness of breath. Afebrile. Consuming approximately 50% of diet.Tolerating well, denies nausea vomiting. Patient and family requesting rehab. at discharge. Consult in place for inpatient rehab at [facility]. 11/13/2021 [facility] inpatient rehab does not take peritoneal dialysis patients, nor do the subacute rehab's. Continues on peritoneal dialysis as per nephrology. 11/14/2021 placement of tunneled dialysis catheter placed on hold. Recommendations for AFC home with CAPD, discussed with both patient and family, the patient unable to afford at this time. Patient will discuss options again with PCP, Dr. Garza. Significant clinical improvement. Continues on peritoneal dialysis. 11/17/21: Yevgeniy is doing well this AM. Due to his overall weight loss and ongoing failure to trhive, he is being transitioned to [facility] dialysis. A catheter is set to be palce today. he will then go for Rehab ath [facility] and be with his . Vitals show he is afebrile, borderline tachy, BP normal. SIO2 95% on 3l/m via NC. Labs today show elecrolyte abnormalities and BUN CR elevated due to his ESARD. 11/18/2021: patient is s/p permacath placement and hemodialysis. He is going to [facility] to room with his for REHAB. Patient Condition at Discharge: Critical Plan - Discharge Summary Discharge Rx Participant: No New Discharge Prescriptions: New Darbepoetin Brian [Aranesp] 60 mcg SQ Q7D each Artificial Tears-Hypromellose [Artificial Tear Drops] 1 drops BOTH EYES Q2HR PRN ml PRN Reason: Dry Eye(S) Acetaminophen Tab [Tylenol] 650 mg PO Q6HR PRN tab PRN Reason: Fever And/ Or Pain Magnesium Oxide [Mag-Ox] 400 mg PO DAILY tab Continue Atorvastatin [Lipitor] 80 mg PO HS Calcium Acetate [PhosLo] 667 mg PO AC-TID Famotidine [Pepcid] 20 mg PO HS PRN PRN Reason: Heartburn dronabinoL [Marinol] 10 mg PO BID Potassium Chloride ER [K-Dur 20] 20 meq PO DAILY #30 tablet Citalopram Hydrobromide [CeleXA] 20 mg PO DAILY Metoprolol Tartrate [Lopressor] 12.5 mg PO DAILY Megestrol [Megace] 80 mg PO TID Diphenox-Atrop 2.5-0.025 mg [Lomotil] 1 tab PO TID PRN PRN Reason: Diarrhea Midodrine HCl [ProAmatine] 10 mg PO TID PRN PRN Reason: Blood Pressure - Low Aspirin EC [Ecotrin Low Dose] 81 mg PO HS Discharge Medication List Atorvastatin [Lipitor] 80 mg PO HS 01/12/19 [History] Calcium Acetate [PhosLo] 667 mg PO AC-TID 08/28/20 [History] Famotidine [Pepcid] 20 mg PO HS PRN 04/18/21 [History] dronabinoL [Marinol] 10 mg PO BID 07/19/21 [History] Potassium Chloride ER [K-Dur 20] 20 meq PO DAILY #30 tablet 09/18/21 [Rx] Citalopram Hydrobromide [CeleXA] 20 mg PO DAILY 10/19/21 [History] Diphenox-Atrop 2.5-0.025 mg [Lomotil] 1 tab PO TID PRN 10/19/21 [History] Midodrine HCl [ProAmatine] 10 mg PO TID PRN 10/19/21 [History] Aspirin EC [Ecotrin Low Dose] 81 mg PO HS 11/03/21 [History] Megestrol [Megace] 80 mg PO TID 11/03/21 [History] Metoprolol Tartrate [Lopressor] 12.5 mg PO DAILY 11/03/21 [History] Acetaminophen Tab [Tylenol] 650 mg PO Q6HR PRN tab 11/18/21 [Rx] Artificial Tears-Hypromellose [Artificial Tear Drops] 1 drops BOTH EYES Q2HR PRN ml 11/18/21 [Rx] Darbepoetin Brian [Aranesp] 60 mcg SQ Q7D each 11/18/21 [Rx] Magnesium Oxide [Mag-Ox] 400 mg PO DAILY tab 11/18/21 [Rx] Follow up Appointment(s)/Referral(s): [facility] [NON-STAFF] - 12/22/21 6:00 am (Chair times will be Mondays, Wednesdays, Fridays at 6:30a.m. Please arrive 30 minutes early to first treatment. ) Sebas Garza Jr, [Primary Care Provider] - 1-2 days Discharge Disposition: TRANSFER TO SNF/ECF
[2021-11-18] MEDS ORDERED: DEXTROSE 5% IN WATER 1,000 ML IV ONE (13:29)
[2021-11-18 13:57] VITALS: TEMP 97.9
[2021-11-18 16:55] VITALS: BP 107/71; PULSE 102
--- NOTE | 2021-11-21 11:03 | CDI ---
Documentation Clarification Form Date: 11/21/2021 10:56:56 AM From: Manny Mercado Admit Date: 11/10/2021 08:14:00 PM Patient Name: Yevgeniy Fowler Visit Number: [id number] Discharge Date: 11/18/2021 08:25:00 PM ATTENTION: The Clinical Documentation Specialists (CDI) and [facility] Coding Staff appreciate your assistance in clarifying documentation. Please respond to the clarification below the line at the bottom and electronically sign. The CDI & [facility] Coding staff will review the response and follow-up if needed. Please note: Queries are made part of the Legal Health Record. If you have any questions, please contact the author of this message via ITS. Dr. Shaq Starr The patients principal diagnosis the diagnosis that was chiefly responsible for the admission - has not been clearly identified and clarification is requested. The patient presented with the following: hyperkalemia and dehydration History/Risk factors: ESRD, not eating and drinking Clinical Indicators: Lab findings: hyperkalemia, hyponatremia Radiology findings: Vital Signs: Treatment: IV fluids, dialysis catheter placed Consults: In your professional opinion, can you please clarify which diagnosis, after study, was the reason chiefly responsible for the admission? [ X ] dehydration [ ] ESRD [ ] Other, please specify [ ] Unable to determine [ ] acute renal failure MTDD
== END 2021-11-18 20:25 | DRG 640 ==
LOC: EC 17:54 → 4SSUR 20:14
PROVIDERS: ADMIT Family Medicine; ATTEND Family Medicine
PROC: 5A1D70Z Performance of Urinary Filtration, Intermittent, Less than 6 Hours Per Day (ICD-10-PCS; 2021-11-10)
PROC: 06H033Z Insertion of Infusion Device into Inferior Vena Cava, Percutaneous Approach (ICD-10-PCS; principal; 2021-11-17 16:00)
DX: E86.0 Dehydration (principal); E43 Unspecified severe protein-calorie malnutrition; I71.00 Dissection of unspecified site of aorta; J96.90 Respiratory failure, unspecified, unspecified whether with hypoxia or hypercapnia; N18.6 End stage renal disease; I12.0 Hypertensive chronic kidney disease with stage 5 chronic kidney disease or end stage renal disease; Z68.1 Body mass index [BMI] 19.9 or less, adult; E87.1 Hypo-osmolality and hyponatremia; E87.2 Acidosis; D63.1 Anemia in chronic kidney disease; E61.1 Iron deficiency; E78.5 Hyperlipidemia, unspecified; E83.42 Hypomagnesemia; E86.1 Hypovolemia; E87.5 Hyperkalemia; F32.A Depression, unspecified; H91.90 Unspecified hearing loss, unspecified ear; I27.20 Pulmonary hypertension, unspecified; I34.0 Nonrheumatic mitral (valve) insufficiency; I71.4 Abdominal aortic aneurysm, without rupture; M89.8X9 Other specified disorders of bone, unspecified site; Z20.822 Contact with and (suspected) exposure to COVID-19; R62.7 Adult failure to thrive; E87.6 Hypokalemia; Z51.5 Encounter for palliative care; Z79.899 Other long term (current) drug therapy; Z80.0 Family history of malignant neoplasm of digestive organs; Z82.49 Family history of ischemic heart disease and other diseases of the circulatory system; Z86.19 Personal history of other infectious and parasitic diseases; Z86.79 Personal history of other diseases of the circulatory system; Z86.010 Personal history of colon polyps; Z99.2 Dependence on renal dialysis; Z87.891 Personal history of nicotine dependence; Z66 Do not resuscitate
CPT/HCPCS: 36415; 36558; 76937; 77001; 80048; 80051; 80053; 80074; 83735; 84100; 84132; 84134; 84295; 85025; 85610; 85730; 86704; 86706; 87340; 87635; 90935; 93005; 94760; 99291

== ENCOUNTER 2021-11-24 06:37 | Inpatient (IN) | payer MEDICARE ==
--- NOTE | 2021-11-24 07:12 | ED ---
General Adult HPI - General Chief complaint: Syncope Stated complaint: Syncope Time Seen by Provider: 11/24/21 06:43 Source: patient, EMS, RN notes reviewed Mode of arrival: EMS Limitations: no limitations - History of Present Illness Initial comments: This a 76-year-old male presents emergency from via EMS for [place] chief complaint of possible syncopal episode. Patient states he has no complaints this time. There was reports that he had an unresponsive episode in which it initially thought it was related to seizure though it seems to be more likely related to syncopal episode. They state his pulse ox was low At time was placed on nonrebreather breath has no current shortness of breath and does not require vaccination at this time. Patient denies chest pain leg pain abdominal pain headache dizziness fevers chills. Patient states she is on his way to do dialysis today. - Related Data Home Medications Medication Instructions Recorded Confirmed Atorvastatin [Lipitor] 80 mg PO HS@2100 01/12/19 11/24/21 Calcium Acetate [PhosLo] 667 mg PO TID@0800,1200,1700 08/28/20 11/24/21 Famotidine [Pepcid] 20 mg PO HS PRN 04/18/21 11/24/21 dronabinoL [Marinol] 10 mg PO BID@0800,1700 07/19/21 11/24/21 Citalopram Hydrobromide [CeleXA] 20 mg PO DAILY@0800 10/19/21 11/24/21 Diphenox-Atrop 2.5-0.025 mg 1 tab PO TID PRN 10/19/21 11/24/21 [Lomotil] Midodrine HCl [ProAmatine] 10 mg PO TID PRN 10/19/21 11/24/21 Aspirin EC [Ecotrin Low Dose] 81 mg PO HS@2100 11/03/21 11/24/21 Megestrol [Megace] 80 mg PO TID@0800,1200,1700 11/03/21 11/24/21 Metoprolol Tartrate [Lopressor] 12.5 mg PO DAILY@0800 11/03/21 11/24/21 Darbepoetin Brian [Aranesp] 60 mcg SQ Q7D PRN 11/24/21 11/24/21 Magnesium Oxide [Mag-Ox] 400 mg PO DAILY@0800 11/24/21 11/24/21 Nepro 1 can PO TID@0800,1200,1700 11/24/21 11/24/21 Potassium Chloride ER [K-Dur 20] 20 meq PO DAILY@0800 11/24/21 11/24/21 bisacodyL [Dulcolax] 10 mg RECTAL DAILY PRN 11/24/21 11/24/21 Previous Rx's Medication Instructions Recorded Acetaminophen Tab [Tylenol] 650 mg PO Q6HR PRN tab 11/18/21 Artificial Tears-Hypromellose 1 drops BOTH EYES Q2HR PRN ml 11/18/21 [Artificial Tear Drops] Allergies Allergy/AdvReac Type Severity Reaction Status Date / Time heparin Allergy Severe HIT/LARRY-see Verified 11/24/21 08:51 comment cyclobenzaprine Allergy Rash/Hives Verified 11/24/21 08:51 [From Flexeril] Review of Systems ROS Statement: Those systems with pertinent positive or pertinent negative responses have been documented in the HPI. ROS Other: All systems not noted in ROS Statement are negative. Past Medical History Past Medical History: Dialysis, GERD/Reflux, Hearing Disorder / Deafness, Hyperlipidemia, Hypertension, Renal Disease Additional Past Medical History / Comment(s): AAA. Peritoneal dialysis [place]. Pancreatitis 12/2020. Colon polyps. History of Any Multi-Drug Resistant Organisms: None Reported Past Surgical History: Appendectomy, Cholecystectomy, Hernia Repair, Orthopedic Surgery Additional Past Surgical History / Comment(s): AAA stent placement, bilat inguinal hernia repair, peritoneal dialysis placement. ORIF Rt hand w/ pins. EGD, Colonoscopy. Past Anesthesia/Blood Transfusion Reactions: No Reported Reaction Past Psychological History: Depression Smoking Status: Former smoker Past Alcohol Use History: None Reported Past Drug Use History: None Reported - Past Family History Sister(s) Family Medical History: Cancer, Myocardial Infarction ([place]) Additional Family Medical History / Comment(s): esophageal ca Brother(s) Family Medical History: Pneumonia General Exam General appearance: alert, in no apparent distress Head exam: Present: atraumatic, normocephalic, normal inspection Eye exam: Present: normal appearance, PERRL, EOMI. Absent: scleral icterus, conjunctival injection, periorbital swelling ENT exam: Present: normal exam, normal oropharynx, mucous membranes moist Neck exam: Present: normal inspection, full ROM. Absent: tenderness, meningismus, lymphadenopathy Respiratory exam: Present: normal lung sounds bilaterally, other (Right-sided chest Catheter). Absent: respiratory distress, wheezes, rales, rhonchi, stridor Cardiovascular Exam: Present: regular rate, normal rhythm, normal heart sounds. Absent: systolic murmur, diastolic murmur, rubs, gallop, clicks GI/Abdominal exam: Present: soft, normal bowel sounds, other (Peritoneal dialysis catheter noted). Absent: distended, tenderness, guarding, rebound, rigid Neurological exam: Present: alert, oriented X3, CN II-XII intact, reflexes normal. Absent: motor sensory deficit Skin exam: Present: warm, dry, intact, normal color. Absent: rash Course Vital Signs 11/24/21 11/24/21 11/24/21 06:40 08:41 09:59 Temperature 98.7 F Pulse Rate 75 86 92 Respiratory 20 18 16 Rate Blood Pressure 109/69 115/65 119/79 O2 Sat by Pulse 100 98 99 Oximetry Medical Decision Making - Medical Decision Making 76-year-old presented for possible syncopal episode versus seizure. This included this time. Patient has chronic renal disease is scheduled for dialysis today patient needs dialysis as he has a potassium of 7.3. Patient also has new anemia of 7.0 with no active bleeding most likely from chronic kidney disease. Case discussed with Dr. Beard. Patient we placed in observation for transfusion, dialysis and hopeful discharged to [facility]. - Lab Data Result diagrams: 11/24/21 07:01 11/24/21 09:12 Lab Results 11/24/21 11/24/21 11/24/21 Range/Units 07:01 07:01 07:01 WBC 12.7 H (3.8-10.6) k/uL RBC 2.00 L (4.30-5.90) m/uL Hgb 7.0 L D (13.0-17.5) gm/dL Hct 21.6 L (39.0-53.0) % MCV 107.9 H (80.0-100.0) fL MCH 35.0 (25.0-35.0) pg MCHC 32.5 (31.0-37.0) g/dL RDW 16.3 H (11.5-15.5) % Plt Count 164 (150-450) k/uL MPV 8.9 Neutrophils % 87 % Lymphocytes % 9 % Monocytes % 3 % Eosinophils % 0 % Basophils % 0 % Neutrophils # 11.0 H (1.3-7.7) k/uL Lymphocytes # 1.2 (1.0-4.8) k/uL Monocytes # 0.4 (0-1.0) k/uL Eosinophils # 0.0 (0-0.7) k/uL Basophils # 0.0 (0-0.2) k/uL Manual Slide Review Performed Hypochromasia Slight Anisocytosis Slight Macrocytosis Marked A PT 11.4 (9.0-12.0) sec INR 1.1 (<1.2) APTT 22.5 (22.0-30.0) sec Sodium 127 L (137-145) mmol/L Potassium 7.3 H* (3.5-5.1) mmol/L Chloride 97 L (98-107) mmol/L Carbon Dioxide 29 (22-30) mmol/L Anion Gap 1 mmol/L BUN 50 H (9-20) mg/dL Creatinine 4.47 H (0.66-1.25) mg/dL Est GFR (CKD-EPI)AfAm 14 (>60 ml/min/1.73 sqM) Est GFR (CKD-EPI)NonAf 12 (>60 ml/min/1.73 sqM) Glucose 101 H (74-99) mg/dL Calcium 7.7 L (8.4-10.2) mg/dL Total Bilirubin 0.6 (0.2-1.3) mg/dL AST 26 (17-59) U/L ALT 22 (4-49) U/L Alkaline Phosphatase 90 (38-126) U/L Troponin I (0.000-0.034) ng/mL Total Protein 4.5 L (6.3-8.2) g/dL Albumin 2.2 L (3.5-5.0) g/dL 11/24/21 11/24/21 Range/Units 07:01 09:12 WBC (3.8-10.6) k/uL RBC (4.30-5.90) m/uL Hgb (13.0-17.5) gm/dL Hct (39.0-53.0) % MCV (80.0-100.0) fL MCH (25.0-35.0) pg MCHC (31.0-37.0) g/dL RDW (11.5-15.5) % Plt Count (150-450) k/uL MPV Neutrophils % % Lymphocytes % % Monocytes % % Eosinophils % % Basophils % % Neutrophils # (1.3-7.7) k/uL Lymphocytes # (1.0-4.8) k/uL Monocytes # (0-1.0) k/uL Eosinophils # (0-0.7) k/uL Basophils # (0-0.2) k/uL Manual Slide Review Hypochromasia Anisocytosis Macrocytosis PT (9.0-12.0) sec INR (<1.2) APTT (22.0-30.0) sec Sodium (137-145) mmol/L Potassium 7.3 H* (3.5-5.1) mmol/L Chloride (98-107) mmol/L Carbon Dioxide (22-30) mmol/L Anion Gap mmol/L BUN (9-20) mg/dL Creatinine (0.66-1.25) mg/dL Est GFR (CKD-EPI)AfAm (>60 ml/min/1.73 sqM) Est GFR (CKD-EPI)NonAf (>60 ml/min/1.73 sqM) Glucose (74-99) mg/dL Calcium (8.4-10.2) mg/dL Total Bilirubin (0.2-1.3) mg/dL AST (17-59) U/L ALT (4-49) U/L Alkaline Phosphatase (38-126) U/L Troponin I 0.146 H* (0.000-0.034) ng/mL Total Protein (6.3-8.2) g/dL Albumin (3.5-5.0) g/dL Disposition Clinical Impression: Anemia, Hyperkalemia, ESRD on dialysis, Syncope Disposition: ADMITTED IP TO THIS [facility] Condition: Fair Referrals: Sebas Garza Jr, [Primary Care Provider] - 1-2 days
--- NOTE | 2021-11-24 07:37 | XR ---
EXAMINATION TYPE: XR chest 2V DATE OF EXAM: 11/24/2021 COMPARISON: 11/17/2021 HISTORY: Shortness of breath TECHNIQUE: Frontal and lateral views of the chest are obtained. FINDINGS: Scattered senescent parenchymal changes noted. Hyperinflation compatible with COPD. No evidence for infiltrate. No evidence for atelectasis. Small left-sided pleural effusion noted. Lar ge bore central venous line is in place. Heart size is stable. Mediastinal structures are stable and grossly unremarkable. No evidence for hilar prominence. Degenerative changes dorsal spine. IMPRESSION: 1. No evidence for acute pulmonary disease.
[2021-11-24 07:42] LABS: INR 1.1 (<1.2); Partial Thromboplastin Time 22.5 sec (22.0-30.0); Prothrombin Time 11.4 sec (9.0-12.0)
[2021-11-24 07:44] LABS: Albumin 2.2 g/dL (3.5-5.0); Calcium 7.7 mg/dL (8.4-10.2); Total Bilirubin 0.6 mg/dL (0.2-1.3); Total Protein 4.5 g/dL (6.3-8.2)
[2021-11-24 07:51] LABS: Anisocytosis Slight; Basophils % (A) 0 %; Eosinophils % (A) 0 %; HCT 21.6 % (39.0-53.0); Hypochromasia Slight; Lymphocytes # (A) 1.2 k/uL (1.0-4.8); Lymphocytes % (A) 9 %; MCHC 32.5 g/dL (31.0-37.0); MCV 107.9 fL (80.0-100.0); Macrocytosis Marked; Mean Platelet Volume 8.9; Monocytes # (A) 0.4 k/uL (0-1.0); Monocytes % (A) 3 %; Neutrophils % (A) 87 %; Platelet Count 164 k/uL (150-450); RDW 16.3 % (11.5-15.5); WBC 12.7 k/uL (3.8-10.6)
[2021-11-24 07:54] LABS: Potassium 7.3 mmol/L (3.5-5.1)
[2021-11-24] MEDS ORDERED: ACETAMINOPHEN TAB 325 MG TAB PO PRN (10:10)
[2021-11-24] MEDS ORDERED: NALOXONE 0.4 MG/ML 1 ML VIAL IV PRN (10:10)
[2021-11-24] MEDS ORDERED: METOCLOPRAMIDE 5 MG/ML 2 ML VIAL IVP STA (10:29)
[2021-11-24] MEDS ORDERED: PANTOPRAZOLE 40 MG/10 ML VIAL IVP STA (10:29)
[2021-11-24] MEDS ORDERED: MIDODRINE 5 MG TAB PO PRN (12:18)
[2021-11-24] MEDS ORDERED: DARBEPOETIN ALFA 60 MCG/0.3 ML SYRINGE SQ PRN (20:18)
[2021-11-24] MEDS ORDERED: NON FORMULARY DRUG (Midodrine Hcl [Proamatine] 10 MG Tablet) PO PRN (20:18)
--- NOTE | 2021-11-24 20:28 | P.HPIM ---
History of Present Illness H&P Date: 11/24/21 Chief Complaint: Syncope 76-year-old male patient presents for [place] where he and his live for evaluation of syncopal episode. Evidently there was a report of unrespon siveness by staff which is perceived to be a questionable seizure\\syncopal episode. It was reported that patient's oxygen saturation was low and was placed on a nonrebreather. Patient has had no complaints of shortness of breath or difficulty breathing, chest pain pressure, nausea, vomiting or diarrhea. Today was the patient's dialysis day is found to have a potassium of 7.3. Initial set of blood work reveals a WBC count of 12.7, hemoglobin 7, hematocrit of 21.6, platelet count 164. Chemistry reveals a sodium 127, potassium is 7.3, albumin of 50, creatinine of 4.47, glucose of 101, troponin 0.146. Patient was tested for coronavirus and found to be negative. Initial set of vitals found him to be afebrile 98.7, heart rate of 75, respiratory rate of 20, blood pressure 109/69, he maintain oxygen saturation 100% on 2 L nasal cannula which was removed and placed on room air. Nephrology was consult with and dialysis was ordered with 1 unit of packed RBCs. PCP was also notified and orders were received. Currently patient is resting comfortably in bed, and just received 1 unit of pac ked RBCs. Patient did receive dialysis but was stopped short as patient "went out on dialysis nurse at 1330 and they gave back 400 mL and patient came back to" blood pressure is rechecked and the patient became more stable. Review of Systems Constitutional: Reports as per HPI, Reports fatigue Ears, nose, mouth and throat: Reports as per HPI Cardiovascular: Reports as per HPI, Reports lightheadedness (Hypotension), Reports syncope Respiratory: Reports as per HPI, Denies congestion, Denies cough, Denies cough with sputum, Denies dyspnea, Denies excessive sputum, Denies hemoptysis, Denies home oxygen, Denies pain, Denies pain on inspiration, Denies pleurisy, Denies respiratory infections, Denies sleep apnea, Denies snoring, Denies wheezing Gastrointestinal: Reports as per HPI Genitourinary: Reports as per HPI (Dialysis patient) Musculoskeletal: Reports as per HPI, Reports muscle weakness Integumentary: Reports as per HPI Neurological: Reports balance difficulties, Reports memory loss, Reports syncope, Reports weakness Psychiatric: Reports as per HPI Endocrine: Reports as per HPI Hematologic/Lymphatic: Reports as per HPI Allergic/Immunologic: Reports as per HPI Past Medical History Past Medical History: Dialysis, GERD/Reflux, Hearing Disorder / Deafness, Hyperlipidemia, Hypertension, Renal Disease, Syncope Additional Past Medical History / Comment(s): Pt recently admitted to [facility] with dehydration. Other hx: ESRD with hemodialysis M/W/F, chronic anemia, mitral valve regurgitation, AAA with stent, benign colon polyps, severe protein calorie malnutrition, low back pain, [place] BAND bilaterally, past shingelles, hyponatremia/hypokalemia. History of Any Multi-Drug Resistant Organisms: None Reported Past Surgical History: Appendectomy, Cholecystectomy, Hernia Repair, Orthopedic Surgery Additional Past Surgical History / Comment(s): 10/2021 permanent hemodialysis catheter placed, peritoneal dialysis access, bilateral inguinal hernia repairs, EGDs, colonoscopies, AAA with stent, bilateral renal artery stents, ORIF R hand with pins. Past Anesthesia/Blood Transfusion Reactions: No Reported Reaction Smoking Status: Former smoker - Past Family History Sister(s) Family Medical History: Cancer, Myocardial Infarction ([place]) Additional Family Medical History / Comment(s): esophageal ca Brother(s) Family Medical History: Pneumonia Medications and Allergies Home Medications Medication Instructions Recorded Confirmed Type Atorvastatin [Lipitor] 80 mg PO HS@2100 01/12/19 11/24/21 History Calcium Acetate [PhosLo] 667 mg PO TID@0800,1200,1700 08/28/20 11/24/21 History Famotidine [Pepcid] 20 mg PO HS PRN 04/18/21 11/24/21 History dronabinoL [Marinol] 10 mg PO BID@0800,1700 07/19/21 11/24/21 History Citalopram Hydrobromide [CeleXA] 20 mg PO DAILY@0800 10/19/21 11/24/21 History Diphenox-Atrop 2.5-0.025 mg 1 tab PO TID PRN 10/19/21 11/24/21 History [Lomotil] Midodrine HCl [ProAmatine] 10 mg PO TID PRN 10/19/21 11/24/21 History Aspirin EC [Ecotrin Low Dose] 81 mg PO HS@2100 11/03/21 11/24/21 History Megestrol [Megace] 80 mg PO TID@0800,1200,1700 11/03/21 11/24/21 History Metoprolol Tartrate [Lopressor] 12.5 mg PO DAILY@0800 11/03/21 11/24/21 History Acetaminophen Tab [Tylenol] 650 mg PO Q6HR PRN tab 11/18/21 11/24/21 Rx Artificial Tears-Hypromellose 1 drops BOTH EYES Q2HR PRN ml 11/18/21 11/24/21 Rx [Artificial Tear Drops] Darbepoetin Brian [Aranesp] 60 mcg SQ Q7D PRN 11/24/21 11/24/21 History Magnesium Oxide [Mag-Ox] 400 mg PO DAILY@0800 11/24/21 11/24/21 History Nepro 1 can PO TID@0800,1200,1700 11/24/21 11/24/21 History Potassium Chloride ER [K-Dur 20] 20 meq PO DAILY@0800 11/24/21 11/24/21 History bisacodyL [Dulcolax] 10 mg RECTAL DAILY PRN 11/24/21 11/24/21 History Allergies Allergy/AdvReac Type Severity Reaction Status Date / Time heparin Allergy Severe HIT/LARRY-see Verified 11/24/21 08:51 comment cyclobenzaprine Allergy Rash/Hives Verified 11/24/21 08:51 [From Flexeril] Physical Exam Vitals: Vital Signs Temp Pulse Resp BP BP Pulse Ox 11/24/21 19:46 98.3 F 100 16 117/73 98 11/24/21 17:13 98.7 F 116 H 18 114/71 98 11/24/21 16:43 98 F 117 H 16 93/66 97 11/24/21 16:33 97.7 F 122 H 18 98/71 94 L 11/24/21 16:31 97.8 F 20 112/68 11/24/21 15:41 111 H 16 111/65 95 11/24/21 10:43 90 16 113/73 97 11/24/21 09:59 92 16 119/79 99 11/24/21 08:41 86 18 115/65 98 11/24/21 06:40 98.7 F 75 20 109/69 100 Intake and Output 11/24/21 11/24/21 11/24/21 06:59 14:59 22:59 Intake Total 1430 Output Total 0 Balance 1430 Intake: Oral 20 Blood Product 310 Rc As-1 Unit 310 [id number] Hemodialysis 1100 Output: Hemodialysis 0 Other: Weight 49.895 kg 49.895 kg GENERAL: Alert and in no acute distress. Fatigued HEAD: Atraumatic, normocephalic. EYES: Pupils equal round and reactive to light, extraocular movements intact, sclera anicteric, conjunctiva are normal. ENT:nares patent, oropharynx clear without exudates. Moist mucous membranes. NECK: Normal range of motion, supple without lymphadenopathy or JVD, no thyromegaly LUNGS: Breath sounds clear to auscultation bilaterally and equal. No wheezes rales or rhonchi. Catheter in right side of chest HEART: Regular rate and rhythm without murmurs, rubs or gallops.S1S2 Normal ABDOMEN: Soft, nontender, normoactive bowel sounds. No guarding, no rebound. No masses appreciated. Peritoneal dialysis catheter noted EXTREMITIES: Normal range of motion, no pitting or edema. No clubbing or cyanosis. NEUROLOGICAL: Cranial nerves II through XII grossly intact. Normal speech, normal gait. PSYCH: Normal mood, normal affect. SKIN: Warm, Dry, normal turgor, no rashes or lesions noted. Results CBC & Chem 7: 11/24/21 07:01 11/24/21 09:12 Labs: Abnormal Lab Results - Last 24 Hours (Table) 11/24/21 11/24/21 11/24/21 Range/Units 07:01 07:01 07:01 WBC 12.7 H (3.8-10.6) k/uL RBC 2.00 L (4.30-5.90) m/uL Hgb 7.0 L D (13.0-17.5) gm/dL Hct 21.6 L (39.0-53.0) % MCV 107.9 H (80.0-100.0) fL RDW 16.3 H (11.5-15.5) % Neutrophils # 11.0 H (1.3-7.7) k/uL Macrocytosis Marked A Sodium 127 L (137-145) mmol/L Potassium 7.3 H* (3.5-5.1) mmol/L Chloride 97 L (98-107) mmol/L BUN 50 H (9-20) mg/dL Creatinine 4.47 H (0.66-1.25) mg/dL Glucose 101 H (74-99) mg/dL Calcium 7.7 L (8.4-10.2) mg/dL Troponin I 0.146 H* (0.000-0.034) ng/mL Total Protein 4.5 L (6.3-8.2) g/dL Albumin 2.2 L (3.5-5.0) g/dL Crossmatch 11/24/21 11/24/21 Range/Units 09:12 13:00 WBC (3.8-10.6) k/uL RBC (4.30-5.90) m/uL Hgb (13.0-17.5) gm/dL Hct (39.0-53.0) % MCV (80.0-100.0) fL RDW (11.5-15.5) % Neutrophils # (1.3-7.7) k/uL Macrocytosis Sodium (137-145) mmol/L Potassium 7.3 H* (3.5-5.1) mmol/L Chloride (98-107) mmol/L BUN (9-20) mg/dL Creatinine (0.66-1.25) mg/dL Glucose (74-99) mg/dL Calcium (8.4-10.2) mg/dL Troponin I (0.000-0.034) ng/mL Total Protein (6.3-8.2) g/dL Albumin (3.5-5.0) g/dL Crossmatch See Detail Thrombosis Risk Factor Assmnt - Choose All That Apply Any of the Below Risk Factors Present?: Yes Each Factor Represents 1 point: Medical pt on bed rest Other Risk Factors: Yes Each Risk Factor Represents 2 Points: Patient confined to bed Other congenital or acquired thrombophilia - If yes, enter type in comment: No Thrombosis Risk Factor Assessment Total Risk Factor Score: 3 Thrombosis Risk Factor Assessment Level: Moderate Risk Assessment and Plan (1) Leukocytosis Current Visit: Yes Status: Acute Code(s): D72.829 - ELEVATED WHITE BLOOD CELL COUNT, UNSPECIFIED SNOMED Code(s): 596424339 (2) Anemia Current Visit: Yes Status: Acute Code(s): D64.9 - ANEMIA, UNSPECIFIED SNOMED Code(s): 860474570 (3) ESRD on dialysis Current Visit: Yes Status: Acute Code(s): N18.6 - END STAGE RENAL DISEASE; Z99.2 - DEPENDENCE ON RENAL DIALYSIS SNOMED Code(s): 078013569 (4) Hyperkalemia Current Visit: Yes Status: Acute Code(s): E87.5 - HYPERKALEMIA SNOMED Code(s): 54089126 (5) Syncope Current Visit: Yes Status: Acute Code(s): R55 - SYNCOPE AND COLLAPSE SNOMED Code(s): 598906770 (6) ESRD (end stage renal disease) Current Visit: No Status: Acute Code(s): N18.6 - END STAGE RENAL DISEASE SNOMED Code(s): 42005147 (7) Elevated troponin Current Visit: No Status: Acute Code(s): R77.8 - OTHER SPECIFIED ABNORMALITIES OF PLASMA PROTEINS SNOMED Code(s): 021552748 (8) Hyponatremia Current Visit: No Status: Acute Code(s): E87.1 - HYPO-OSMOLALITY AND HYPONATREMIA SNOMED Code(s): 86453504 (9) Hypotension Current Visit: No Status: Acute Code(s): I95.9 - HYPOTENSION, UNSPECIFIED SNOMED Code(s): 85572494 (10) Renal failure Current Visit: No Status: Acute Code(s): N19 - UNSPECIFIED KIDNEY FAILURE SNOMED Code(s): 31218671 Plan: Patient to be admitted for overnight Hemodialysis as per nephrology 1 unit of packed RBCs We'll order labs for tomorrow Home medications reconciled We'll continue to monitor vitals and lab work and treat accordingly We'll reevaluate again tomorrow. Time with Patient: Greater than 30
[2021-11-25 00:08] LABS: Anisocytosis Slight; Basophils % (A) 0 %; Eosinophils % (A) 0 %; HCT 25.8 % (39.0-53.0); HGB 8.3 gm/dL (13.0-17.5); Lymphocytes # (A) 0.9 k/uL (1.0-4.8); Lymphocytes % (A) 9 %; MCH 32.8 pg (25.0-35.0); MCHC 32.1 g/dL (31.0-37.0); Macrocytosis Moderate; Mean Platelet Volume 8.8; Monocytes # (A) 0.4 k/uL (0-1.0); Monocytes % (A) 4 %; Neutrophils # (A) 8.2 k/uL (1.3-7.7); Neutrophils % (A) 85 %; Platelet Count 107 k/uL (150-450); RBC 2.52 m/uL (4.30-5.90); RDW 17.2 % (11.5-15.5); WBC 9.7 k/uL (3.8-10.6)
[2021-11-25 00:20] LABS: MCV 102.3 fL (80.0-100.0)
[2021-11-25] MEDS ORDERED: NON FORMULARY DRUG (Nepro 1 CAN Ml) PO SCH (08:00)
[2021-11-25] MEDS ORDERED: CITALOPRAM HYDROBROMIDE 20 MG TAB PO SCH (08:00)
[2021-11-25] MEDS: CALCIUM ACETATE 667 MG TAB PO SCH ×3 (08:37→17:58)
[2021-11-25 12:30] VITALS: BMI 17.7
[2021-11-25] MEDS ORDERED: ONDANSETRON 4 MG/2 ML VIAL IVP PRN (13:45)
[2021-11-25] MEDS ORDERED: ARTIFICIAL TEARS-HYPROMELLOSE DROPS 15 ML BTL BOTH EYES PRN (16:54)
[2021-11-25] MEDS ORDERED: FAMOTIDINE 20 MG TAB PO PRN (16:54)
[2021-11-25] MEDS ORDERED: bisacodyL 10 MG SUPP RECTAL PRN (16:54)
[2021-11-25] MEDS ORDERED: DIPHENOX-ATROP 2.5-0.025 MG 1 EACH TAB PO PRN (16:54)
--- NOTE | 2021-11-25 17:28 | P.PN ---
Subjective Progress Note Date: 11/25/21 Principal diagnosis: Syncope, fatigue 76-year-old male patient presents for [place] where he and his live for evaluation of syncopal episode. Evidently there was a report of unresponsiveness by staff which is perceived to be a questionable seizure\\syncopal episode. It was reported that patient's oxygen saturation was low and was placed on a nonrebreather. Patient has had no complaints of shortness of breath or difficulty breathing, chest pain pressure, nausea, vomiti ng or diarrhea. Today was the patient's dialysis day is found to have a potassium of 7.3. Initial set of blood work reveals a WBC count of 12.7, hemoglobin 7, hematocrit of 21.6, platelet count 164. Chemistry reveals a sodium 127, potassium is 7.3, albumin of 50, creatinine of 4.47, glucose of 101, troponin 0.146. Patient was tested for coronavirus and found to be negative. Initial set of vitals found him to be afebrile 98.7, heart rate of 75, respiratory rate of 20, blood pressure 109/69, he maintain oxygen saturation 100% on 2 L nasal cannula which was removed and placed on room air. Nephrology was consult with and dialysis was ordered with 1 unit of packed RBCs. PCP was also notified and orders were received. Currently patient is resting comfortably in bed, and just received 1 unit of packed RBCs. Patient did receive dialysis but was stopped short as patient "went out on dialysis nurse at 1330 and they gave back 400 mL and patient came back to" blood pressure is rechecked and the patient became more stable. 11/25/2021 patient resting comfortably in bed at this time and states his only complaint is his fatigue and nausea. Patient states he threw up twice today and was given Zofran which is able to remove the nausea at that time. Patient is alert and oriented, denies chest pain or pressure, shortness of breath or difficulty breathing, diarrhea or constipation or abdominal pain at this time. Patient did undergo dialysis with 1 L of fluid removal and tolerated well. Vital signs remained stable with blood pressure 117/82, heart rate of 81, he is afebrile at 97.9, respiratory rate 16, he is 100% on room air. Initial potassium level was 7.3 and after dialysis last yesterday was down 4.7. Initial hemoglobin coming in with 7.0 he did receive 1 unit of packed RBCs which resulted to 8.3. Objective - Vital Signs Vital signs: Vital Signs Temp 97.9 F 11/25/21 16:00 Pulse 81 11/25/21 16:00 Resp 16 11/25/21 16:00 BP 117/82 11/25/21 16:00 Pulse Ox 100 11/25/21 16:00 Intake & Output 11/24/21 11/25/21 11/25/21 18:59 06:59 18:59 Intake Total 1120 310 120 Output Total 0 1000 Balance 1120 310 -880 Weight 49.895 kg 49.895 kg Intake: Oral 20 120 Blood Product 0 310 Rc As-1 Unit 0 310 [id number] Hemodialysis 1100 Output: Hemodialysis 0 1000 Other: # Voids 0 - Exam GENERAL: Well-appearing and in no acute distress other than fatigue HEAD: Atraumatic, normocephalic. EYES: Pupils equal round and reactive to light, extraocular movements intact, sclera anicteric, conjunctiva are normal. ENT:nares patent, oropharynx clear without exudates. Moist mucous membranes. NECK: Normal range of motion, supple without lymphadenopathy or JVD, no thyromegaly, hemodialysis catheter in place LUNGS: Breath sounds clear to auscultation bilaterally and equal. No wheezes rales or rhonchi. HEART: Regular rate and rhythm without murmurs, rubs or gallops.S1S2 Normal ABDOMEN: Soft, nontender, normoactive bowel sounds. No guarding, no rebound. No masses appreciated. Peritoneal catheter noted EXTREMITIES: Normal range of motion, no pitting or edema. No clubbing or cyanosis. NEUROLOGICAL: Cranial nerves II through XII grossly intact. Normal speech. PSYCH: Normal mood, normal affect. SKIN: Warm, Dry, normal turgor, no rashes or lesions noted. - Labs CBC & Chem 7: 11/24/21 21:32 11/24/21 21:32 Labs: Abnormal Lab Results - Last 24 Hours (Table) 11/24/21 11/24/21 Range/Units 13:00 21:32 RBC 2.52 L (4.30-5.90) m/uL Hgb 8.3 L (13.0-17.5) gm/dL Hct 25.8 L (39.0-53.0) % MCV 102.3 H D (80.0-100.0) fL RDW 17.2 H (11.5-15.5) % Plt Count 107 L (150-450) k/uL Neutrophils # 8.2 H (1.3-7.7) k/uL Lymphocytes # 0.9 L (1.0-4.8) k/uL Crossmatch See Detail Assessment and Plan (1) Leukocytosis Current Visit: Yes Status: Acute Code(s): D72.829 - ELEVATED WHITE BLOOD CELL COUNT, UNSPECIFIED SNOMED Code(s): 573929657 (2) Anemia Current Visit: Yes Status: Acute Code(s): D64.9 - ANEMIA, UNSPECIFIED SNOMED Code(s): 326048401 (3) ESRD on dialysis Current Visit: Yes Status: Acute Code(s): N18.6 - END STAGE RENAL DISEASE; Z99.2 - DEPENDENCE ON RENAL DIALYSIS SNOMED Code(s): 380261581 (4) Hyperkalemia Current Visit: Yes Status: Acute Code(s): E87.5 - HYPERKALEMIA SNOMED Code(s): 54210629 (5) Syncope Current Visit: Yes Status: Acute Code(s): R55 - SYNCOPE AND COLLAPSE SNOMED Code(s): 225520456 (6) ESRD (end stage renal disease) Current Visit: No Status: Acute Code(s): N18.6 - END STAGE RENAL DISEASE SNOMED Code(s): 70781533 (7) Elevated troponin Current Visit: No Status: Acute Code(s): R77.8 - OTHER SPECIFIED ABNORMALITIES OF PLASMA PROTEINS SNOMED Code(s): 424300201 (8) Hyponatremia Current Visit: No Status: Acute Code(s): E87.1 - HYPO-OSMOLALITY AND HYPONATREMIA SNOMED Code(s): 93371582 (9) Hypotension Current Visit: No Status: Acute Code(s): I95.9 - HYPOTENSION, UNSPECIFIED SNOMED Code(s): 55779220 (10) Renal failure Current Visit: No Status: Acute Code(s): N19 - UNSPECIFIED KIDNEY FAILURE SNOMED Code(s): 89323488 Plan: Plan for discharge tomorrow to [facility] Hem[facility] as per nephrology Labs are ordered for tomorrow Home medications restarted We'll continue to monitor vitals and lab work and treat accordingly We'll reevaluate again tomorrow. Time with Patient: Greater than 30
[2021-11-25] MEDS: MEGESTROL 400 MG/10 ML CUP PO SCH (18:23)
--- NOTE | 2021-11-25 19:03 | CONS ---
CONSULTATION REASON FOR CONSULT: End-stage renal disease. HISTORY OF PRESENT ILLNESS: Patient is a 76-year-old male with end-stage renal disease. Patient was on peritoneal dialysis and switched to hemodialysis as he went to rehab. He was admitted to the hospital with history of possible seizure/unresponsiveness noted at the rehab. The patient denied any chest pains or shortness of breath. His potassium was elevated at 7.3 yesterday. Patient did have a dialysis treatment yesterday and is seen on dialysis again today. Hemoglobin was 7. Patient did get a unit of packed RBCs. No active bleeding noted at this time. PAST MEDICAL HISTORY: End-stage renal disease, gastroesophageal reflux disease, deafness, hyperlipidemia, hypertension, CKD mineral bone disorder, history of abdominal aortic aneurysm, mitral valve regurgitation, colonic polyps, chronic back pain. PAST SURGICAL HISTORY: Appendectomy, cholecystectomy, hernia repair, recent hemodialysis catheter insertion, right IJ, with PD access as well, currently on temporary hemodialysis while in rehab. History of colonoscopies, EGDs, bilateral renal artery stents, ORIF right hand with pins. SOCIAL HISTORY: Patient is a former smoker. No history of drug abuse or alcohol abuse. MEDICATIONS: Medications prior to admission included Lipitor, PhosLo, Pepcid, Celexa, Lomotil, midodrine, aspirin, Tylenol, Lopressor, Aranesp, magnesium, Dulcolax, K-Dur. ALLERGIES: ALLERGIES include HEPARIN, which causes HIT, and FLEXERIL causes rash and hives. REVIEW OF SYSTEMS: As is as per HPI. Other systems negative. PHYSICAL EXAMINATION: Patient is comfortable, awake. He is seen on dialysis, tolerating his treatment well. Blood pressure is 143/69, heart rate 40 per minute. Patient is afebrile. EXAMINATION OF THE HEART: S1 and S2. EXAMINATION OF LUNGS: Bilateral breath sounds are heard. Abdomen is soft, non-tender. Examination of lower extremities shows no evidence of edema. PHARMACY OPERATIONS MANAGER exam shows patient is moving all 4 extremities. He is hard of hearing. LABS: Yesterday sodium was 127, potassium 7.3, BUN 50, creatinine 4.47, albumin 2.2, hemoglobin 7.0. ASSESSMENT: 1. End-stage renal disease, on hemodialysis on a Wednesday, Wednesday, Wednesday schedule. Patient will be dialyzed again tomorrow. He had only 2 hours of treatment yesterday. 2. Hyperkalemia; possible underlying gastrointestinal bleed. Potassium was down to 4.7 yesterday. We will dialyze the patient today and then again tomorrow, which is his regular day. 3. Anemia. Rule out GI bleed. No active bleeding noted. Status post packed RBCs transfusion. Will maintain patient on Aranesp. 4. Chronic kidney disease mineral bone disorder, maintained on PhosLo. 5. End-stage renal disease, maintained on peritoneal dialysis; however, currently on temporary hemo while in rehab. PLAN: Repeat hemodialysis in a.m. Check stool for occult blood. Repeat labs in a.m. Thank you for this consultation. Will continue to follow the patient with you during his hospitalization. MMJACQUELINEL / IJN: [id number] /
[2021-11-25] MEDS ORDERED: ASPIRIN 81 MG PO SCH (21:00)
[2021-11-25] MEDS ORDERED: ATORVASTATIN 80 MG TAB PO SCH (21:00)
[2021-11-26] MEDS ORDERED: METOPROLOL TARTRATE 12.5 MG TAB PO SCH (08:00)
[2021-11-26] MEDS ORDERED: MAGNESIUM OXIDE 400 MG TAB PO SCH (08:00)
[2021-11-26 08:45] LABS: Calcium 7.8 mg/dL (8.4-10.2); Potassium 4.9 mmol/L (3.5-5.1)
[2021-11-26] MEDS: MEGESTROL 400 MG/10 ML CUP PO SCH ×3 (08:45→17:54)
[2021-11-26] MEDS: CALCIUM ACETATE 667 MG TAB PO SCH ×3 (08:45→17:54)
[2021-11-26 08:52] LABS: Anisocytosis Slight; HCT 24.5 % (39.0-53.0); HGB 8.1 gm/dL (13.0-17.5); Hypochromasia Moderate; MCH 34.4 pg (25.0-35.0); MCHC 32.9 g/dL (31.0-37.0); MCV 104.5 fL (80.0-100.0); Macrocytosis Moderate; Mean Platelet Volume 8.7; Platelet Count 115 k/uL (150-450); RBC 2.35 m/uL (4.30-5.90); RDW 17.3 % (11.5-15.5); WBC 8.2 k/uL (3.8-10.6)
[2021-11-26 12:54] VITALS: PULSE 72
--- NOTE | 2021-11-26 13:13 | P.DS ---
Providers Date of admission: 11/24/21 10:28 Expected date of discharge: 11/26/21 Attending physician: Sebas Garza Consults: 11/24/21 10:10 Consult Physician Stat Consulting Provider: Ana Dsouza Consult Reason/Comments: Hyperkalemia, dialysis Do you want consulting provider notified?: Yes Primary care physician: Sebas Garza - Discharge Diagnosis(es) (1) Leukocytosis Current Visit: Yes Status: Acute (2) Anemia Current Visit: Yes Status: Acute (3) ESRD on dialysis Current Visit: Yes Status: Acute (4) Hyperkalemia Current Visit: Yes Status: Acute (5) Syncope Current Visit: Yes Status: Acute (6) ESRD (end stage renal disease) Current Visit: No Status: Acute (7) Elevated troponin Current Visit: No Status: Acute (8) Hyponatremia Current Visit: No Status: Acute (9) Hypotension Current Visit: No Status: Acute (10) Renal failure Current Visit: No Status: Acute Hospital Course: patient added on 11/24/2021 for possible syncopal episode from [facility]. Patient was transferred to the emergency room via ambulance. Patient patient is currently a dialysis patient with a peritoneal dialysis port in place and a HD port in his neck on the right side. On that day was the day he was supposed to have dialysis when she has missed. Initial set of labs revealed him to be anemic with a hemoglobin of 7 and hypokalemic with a potassium of 7.3. Nephrology was consulted and orders for dialysis were received. First attempted dialysis patient became unresponsive and dialysis was stopped. Later that night patient received 1 unit packed RBCs and he was admitted to 3 S. On 11/25/2021 patient received dialysis with removal of 1 L and tolerated well. Patient is currently sitting up in bed resting comfortably, he is on room air maintaining oxygen saturations at 100% with other vital signs being stable. Health Concerns: anemia Renal failure requiring dialysis 3 days a week Patient Condition at Discharge: Fair Plan - Discharge Summary Discharge Rx Participant: No New Discharge Prescriptions: No Action Atorvastatin [Lipitor] 80 mg PO HS@2100 Calcium Acetate [PhosLo] 667 mg PO TID@0800,1200,1700 Famotidine [Pepcid] 20 mg PO HS PRN PRN Reason: Heartburn dronabinoL [Marinol] 10 mg PO BID@0800,1700 Citalopram Hydrobromide [CeleXA] 20 mg PO DAILY@0800 Metoprolol Tartrate [Lopressor] 12.5 mg PO DAILY@0800 Megestrol [Megace] 80 mg PO TID@0800,1200,1700 Artificial Tears-Hypromellose [Artificial Tear Drops] 1 drops BOTH EYES Q2HR PRN ml PRN Reason: Dry Eye(S) Acetaminophen Tab [Tylenol] 650 mg PO Q6HR PRN tab PRN Reason: Fever And/ Or Pain bisacodyL [Dulcolax] 10 mg RECTAL DAILY PRN PRN Reason: Constipation Darbepoetin Brian [Aranesp] 60 mcg SQ Q7D PRN PRN Reason: ESRD Magnesium Oxide [Mag-Ox] 400 mg PO DAILY@0800 Potassium Chloride ER [K-Dur 20] 20 meq PO DAILY@0800 Diphenox-Atrop 2.5-0.025 mg [Lomotil] 1 tab PO TID PRN PRN Reason: Diarrhea Midodrine HCl [ProAmatine] 10 mg PO TID PRN PRN Reason: Blood Pressure - Low Aspirin EC [Ecotrin Low Dose] 81 mg PO HS@2100 Nepro 1 can PO TID@0800,1200,1700 Discharge Medication List Atorvastatin [Lipitor] 80 mg PO HS@209901/12/19 [History] Calcium Acetate [PhosLo] 667 mg PO TID@0800,1200,1700 08/28/20 [History] Famotidine [Pepcid] 20 mg PO HS PRN 04/18/21 [History] dronabinoL [Marinol] 10 mg PO BID@0800,1700 07/19/21 [History] Citalopram Hydrobromide [CeleXA] 20 mg PO DAILY@0800 10/19/21 [History] Diphenox-Atrop 2.5-0.025 mg [Lomotil] 1 tab PO TID PRN 10/19/21 [History] Midodrine HCl [ProAmatine] 10 mg PO TID PRN 10/19/21 [History] Aspirin EC [Ecotrin Low Dose] 81 mg PO HS@209911/03/21 [History] Megestrol [Megace] 80 mg PO TID@0800,1200,1700 11/03/21 [History] Metoprolol Tartrate [Lopressor] 12.5 mg PO DAILY@0800 11/03/21 [History] Acetaminophen Tab [Tylenol] 650 mg PO Q6HR PRN tab 11/18/21 [Rx] Artificial Tears-Hypromellose [Artificial Tear Drops] 1 drops BOTH EYES Q2HR PRN ml 11/18/21 [Rx] Darbepoetin Brian [Aranesp] 60 mcg SQ Q7D PRN 11/24/21 [History] Magnesium Oxide [Mag-Ox] 400 mg PO DAILY@0800 11/24/21 [History] Nepro 1 can PO TID@0800,1200,1700 11/24/21 [History] Potassium Chloride ER [K-Dur 20] 20 meq PO DAILY@0800 11/24/21 [History] bisacodyL [Dulcolax] 10 mg RECTAL DAILY PRN 11/24/21 [History] Follow up Appointment(s)/Referral(s): Sebas Garza Jr, [Primary Care Provider] - 1-2 days Activity/Diet/Wound Care/Special Instructions: activity as tolerated Renal diet continue with dialysis Discharge Disposition: TRANSFER TO SNF/ECF Plan of Treatment: continue with dialysis We'll continue with home meds as prescribed We'll follow-up in office in 1-2 days we'll discharge to extended care facility from where he came
[2021-11-26 16:24] VITALS: BP 93/49; RESP 18; TEMP 97.7
--- NOTE | 2021-11-26 16:49 | PN ---
PROGRESS NOTE Patient is seen for followup for end-stage renal disease. He is maintained on a Wednesday, Wednesday, Wednesday schedule for dialysis. The patient was admitted to the hospital with mental status changes. He was found to be severely hyperkalemic with potassium of 7.3 and hemoglobin was low at 7.0. No active bleeding was noted. The patient has been transfused packed RBCs. He was dialyzed. Potassium is now under control. The patient is usually on PD and was transferred to [facility] as he was discharged to rehab from his last admission. This morning patient is seen on dialysis. He is tolerating his treatment well. He is awake, comfortable, not in any acute distress. PHYSICAL EXAMINATION: Blood pressure was 104/88, heart rate 75 per minute, he is afebrile. Examination of the heart S1, S2. Examination of the lungs, bilateral breath sounds are heard. Abdomen is soft, nontender. Examination lower extremities shows no significant edema. MANAGER OF PMO exam grossly intact. LAB: Show hemoglobin 8.1, sodium 140, potassium 4.9, creatinine 2.64. ASSESSMENT: 1. End stage renal disease, normally on PD, switch to temporary hemodialysis while in rehab. 2. Hypotension, maintained on midodrine. 3. Severe hyperkalemia, most likely associated with GI bleed. No active bleeding noted currently. Hemoglobin was 7. Patient received a unit of packed RBCs. 4. Generalized debility, currently in rehab. PLAN: Continue hemodialysis Wednesday, Wednesday, Wednesday schedule. Continue to encourage increased oral intake. Consider EGD/colonoscopy if hemoglobin drops further. MMODL / IJN: [id number] /
[2021-11-27] MEDS ORDERED: CITALOPRAM HYDROBROMIDE 10 MG TAB PO SCH (08:00)
--- NOTE | 2021-11-28 12:14 | CDI ---
Documentation Clarification Form Date: 11/28/2021 12:07:26 PM From: Manny Mercado: Admit Date: 11/24/2021 10:28:00 AM Patient Name: Yevgeniy Fowler Visit Number: [id number] Discharge Date: 11/26/2021 06:55:00 PM ATTENTION: The Clinical Documentation Specialists (CDI) and [facility] Coding Staff appreciate your assistance in clarifying documentation. Please respond to the clarification below the line at the bottom and electronically sign. The CDI & [facility] Coding staff will review the response and follow-up if needed. Please note: Queries are made part of the Legal Health Record. If you have any questions, please contact the author of this message via ITS. Dr. Sebas Garza The patients principal diagnosis the diagnosis that was chiefly responsible for the admission - has not been clearly identified and clarification is requested. The patient presented with syncope and hyperkalemia. Possible History/Risk factors: ESRD Clinical Indicators: Lab findings: severe hyperkalemia Radiology findings: Vital Signs: Treatment: hemodialysis, PRBC Consults:nephrology In your professional opinion, can you please clarify which diagnosis, after study, was the reason chiefly responsible for the admission? [ ] syncope of uknown etiology [ ] hyperkalemia [ ] Other, please specify _end-stage renal disease, depression, hyperkalemia secondary to end-stage renal disease [ ] Unable to determine [ ] ESRD [ ] GI bleed of unknown etiology MTDD
== END 2021-11-26 18:55 | DRG 682 ==
LOC: EC 06:37 → 3SCARD 10:28
PROVIDERS: ADMIT Family Medicine; ATTEND Family Medicine
PROC: 5A1D70Z Performance of Urinary Filtration, Intermittent, Less than 6 Hours Per Day (ICD-10-PCS; principal; 2021-11-24)
PROC: 30233N1 Transfusion of Nonautologous Red Blood Cells into Peripheral Vein, Percutaneous Approach (ICD-10-PCS; 2021-11-24)
DX: I12.0 Hypertensive chronic kidney disease with stage 5 chronic kidney disease or end stage renal disease (principal); N18.6 End stage renal disease; K92.2 Gastrointestinal hemorrhage, unspecified; E87.1 Hypo-osmolality and hyponatremia; E87.5 Hyperkalemia; R55 Syncope and collapse; D63.1 Anemia in chronic kidney disease; D72.829 Elevated white blood cell count, unspecified; E78.5 Hyperlipidemia, unspecified; H91.90 Unspecified hearing loss, unspecified ear; I34.0 Nonrheumatic mitral (valve) insufficiency; M89.9 Disorder of bone, unspecified; Z20.822 Contact with and (suspected) exposure to COVID-19; Z79.899 Other long term (current) drug therapy; Z80.0 Family history of malignant neoplasm of digestive organs; Z82.49 Family history of ischemic heart disease and other diseases of the circulatory system; Z86.79 Personal history of other diseases of the circulatory system; Z86.010 Personal history of colon polyps; Z87.891 Personal history of nicotine dependence; Z95.828 Presence of other vascular implants and grafts; Z99.2 Dependence on renal dialysis; Z88.8 Allergy status to other drugs, medicaments and biological substances; R77.8 Other specified abnormalities of plasma proteins; I95.9 Hypotension, unspecified
CPT/HCPCS: 36415; 71046; 80048; 80053; 84132; 84484; 85025; 85027; 85610; 85730; 86850; 86900; 86901; 86920; 87635; 90935; 93005; 99285